=== PATIENT | female | born 1955 | race Caucasian/White ===

== ENCOUNTER → 2016-09-14 | Outpatient (CLI) | payer OTHER ==
[~2016-09-14] MED LIST: ASPCH81 NG; ASPI-390 PO; ATOR-24 PO; CALC-51 PO; CHOL100010 PO; CMD5 PO; CRF1 PO; CRG625 PO; CYAN10005 PO; DIGO0.052 PO; DIME50TA2; ESCI10TA17 PO; FLUT0.15 NAE; FLV1 NG; Fibersource 1.2 Cal NG; HYDC25 PO; HYDR12.55 PO; HYDR25TA5 PO; LCTL45 PO; LSN5 PO; MGNO400 PO; MULTLIQ PO; MULTTAB61; NICO21DI4 TD; NUTRMIS PO; OMEP20TA PO; OMEP40CA PO; POTTAB2 PO; QSTP PO; SUCR1TAB29 PO; THM100 PO; VNCS250 PO; XFX550 PO
[2016-09-14 17:08] LABS: LYME DISEASE AB IGG NEG (NEG); LYME DISEASE AB IGM NEG (NEG)
[2016-09-15 02:48] LABS: RAPID PLASMA REAGIN NONREACTIVE (NONREACT)
[2016-09-19 02:41] LABS: VITAMIN B1 WHOLE BLD** 5042X 86 nmol/L (78-185)
== END | disposition home or self-care (01) ==
LOC: EDBD → C.LABBC 09:08
PROVIDERS: ATTEND Family Medicine
DX: R41.3 Other amnesia (principal); E53.8 Deficiency of other specified B group vitamins; Z78.9 Other specified health status; Z11.59 Encounter for screening for other viral diseases

== ENCOUNTER 2016-10-09 11:51 | Emergency (ER) | payer OTHER ==
[~2016-10-09] VITALS: Ht 157.5 cm; Wt 70.9 kg
[~2016-10-09 11:51] MED LIST changes: -ASPCH81 NG; -ASPI-390 PO; -CMD5 PO; -CRG625 PO; -DIGO0.052 PO; -DIME50TA2; -FLV1 NG; -Fibersource 1.2 Cal NG; -HYDR12.55 PO; -HYDR25TA5 PO; -LCTL45 PO; -LSN5 PO; -MGNO400 PO; -MULTLIQ PO; -MULTTAB61; -NICO21DI4 TD; -NUTRMIS PO; -OMEP40CA PO; -POTTAB2 PO; -QSTP PO; -SUCR1TAB29 PO; -THM100 PO; -VNCS250 PO; -XFX550 PO
[2016-10-09 11:54] VITALS: TEMP 36.5; Ht 157.5 cm; Wt 70.9 kg
--- NOTE | 2016-10-09 12:25 | EMERGENCY ROOM VISIT NOTE ---
History Report prepared by Maurizioiberic: Reina Velazquez Under the Supervision of: Dr. Jesus Monroy M.D. First contact with patient: 12:15 Chief Complaint: DIZZY Stated Complaint: DIZZINESS Nursing Triage Summary: pt was referred by Dr. hubbard pt states she had a MRI 2 weeks ago and found "something..Im not really sure.. worse case scenario, I could have a stroke or a brain bleed." patient states she has not been about to see a neurologist. pt c/o dizzyiness with movement and trouble balancing. pt states she feel 3 times on . denies hitting her head. patient denies pain or discomfort. History of Present Illness The patient is a 60 year old female who presents to the Emergency Room with complaints of persistent dizziness for the past 6 to 8 months. She is accompanied by her . She reports when she gets up from being seated, she feels very off balance. She feels extremely "wobbly" when she walks and has to walk very slowly. She notes she fell "3 times" in one day this past week. The patient also complains of a "tingly" feeling in her head that she has been experiencing for the past "several weeks". She saw her PCP, Dr. Kirstin Jr. a few weeks ago and had an MRI approximately 2 weeks ago. She states "they saw something on it, but I cannot see a Neurologist for 4 months, so I came here". The patient denies any abdominal pain, vomiting, diarrhea or urinary symptoms. 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 Please see Additional Medical History Sheet. Past Medical & Surgical Medical Problems: (1) GERD (gastroesophageal reflux disease) (2) Hyperlipidemia Family History Cancer Hypertension Social History Smoking Status: Current Every Day Smoker Alcohol Use: occasionally Drug Use: none Marital Status: Housing Status: lives with family Occupation Status: employed Current/Historical Medications Scheduled Atorvastatin (Lipitor), 40 MG PO QAM Cholecalciferol (Vitamin D), 1 TAB PO QAM Cyanocobalamin (Vitamin B-12), 1,000 MCG PO QAM Escitalopram (Lexapro), 1 TAB PO BID Hydrochlorothiazide (Hydrochlorothiazide), 1 TAB PO DAILY Omeprazole (Omeprazole), 1 TAB PO BID Sucralfate (Carafate), 1 TAB PO QID Scheduled PRN Fluticasone Propionate (Nasal) (Flonase Allergy Relief), 2 SPRAY [place]RI[place] DAILY PRN for Nasal Congestion Miscellaneous Medications Dimenhydrinate (Motion Sickness) Allergies Coded Allergies: No Known Allergies (Verified , 10/06/16) Physical Exam Vital Signs Date Time Temp Pulse Resp B/P Pulse Ox O2 Delivery O2 Flow Rate FiO2 10/09/16 14:53 97 18 144/92 98 10/09/16 12:46 113 16 135/79 116 136/113 122 149/96 10/09/16 12:45 116 16 135/79 10/09/16 11:54 36.5 125 18 158/94 99 Room Air Physical Exam GENERAL: Patient awake, alert, oriented x 3. Patient follows commands. Patient does not appear toxic. Patient is adequately hydrated and well- nourished. SKIN: No erythema, pallor, cyanosis or rash HEENT: Normal head, pupils equal, reactive to light and accommodation. Ears normal. Oral cavity and posterior pharynx appear normal. Neck: Without adenopathy, no neck vein distention. LUNGS: Clear to auscultation. No wheezes, no rales, no rhonchi. HEART: No murmurs. No gallops. No rubs ABDOMEN: No masses, no rebound, no hepatomegaly or splenomegaly. EXTREMITIES: No signs of trauma. No pedal or pretibial edema. No calf or thigh tenderness. NEUROLOGIC: Cranial nerves II-XII within normal limits. No gross motor sensory function deficits. Medical Decision & Procedures Laboratory Results 10/09/16 12:30 10/09/16 12:30 Test 10/09/16 12:30 Red Blood Count 3.86 M/uL (4.2-5.4) Mean Corpuscular Volume 90.2 fL (80-100) Mean Corpuscular Hemoglobin 31.3 pg (25-34) Mean Corpuscular Hemoglobin Concent 34.8 g/dl (32-36) RDW Standard Deviation 43.9 fL (36.4-46.3) RDW Coefficient of Variation 13.4 % (11.5-14.5) Mean Platelet Volume 9.1 fL (7.4-10.4) Anion Gap 12.0 mmol/L (3-11) Est Creatinine Clear Calc Drug Dose 58.5 ml/min Estimated GFR () 77.3 Estimated GFR (Non- 66.7 BUN/Creatinine Ratio 14.2 (10-20) Calcium Level 9.1 mg/dl (8.5-10.1) Laboratory results as stated above per my review. ECG Indication: weakness (dizziness) Rate (beats per minute): 118 Rhythm: sinus tachycardia Findings: no acute ischemic change, no ectopy ED Course 1217: Past medical records reviewed. The patient was evaluated in room B3. A complete history and physical examination was performed. 1440: I reevaluated the patient. She is feeling well and resting comfortably. I discussed her results and discharge instructions and she verbalized complete understanding and agreement. Medical Decision The differential diagnoses considered include: TIA/CVA and anxiety. 60-year-old female with shakiness, wobbliness and dizziness intermittently for the past 6 months. The patient has already had an MRI performed at an outside institution. I have no access to that study. Additional lab work was performed here. Please see above. The patient is slightly hypokalemic. I do not believe that explains her symptoms. Here in the ED she was asymptomatic. The patient will be encouraged to follow back with her family physician to discuss the MRI results. At some point she may require neurology follow-up. Impression Primary Impression: Dizziness Additional Impression: Hypokalemia Scribe Attestation The scribe's documentation has been prepared under my direction and personally reviewed by me in its entirety. I confirm that the note above accurately reflects all work, treatment, procedures, and medical decision making performed by me. Departure Information Dispostion Home / Self-Care Referrals Zachary Hubbard, [facility] (PCP) Patient Instructions ED Potassium Deficiency, My [facility] Additional Instructions Follow-up with Dr. Hubbard within the next 2 weeks. Increase potassium in your diet. Problem Qualifiers
[2016-10-09] MEDS ORDERED: SUCR1TAB29 PO (12:43)
[2016-10-09] MEDS ORDERED: HYDR12.55 PO (12:43)
[2016-10-09] MEDS ORDERED: DIME50TA2 (12:43)
[2016-10-09 12:45] LABS: HEMATOCRIT 34.8 % (37-47); MEAN CELL VOLUME 90.2 fL (80-100); MEAN CORPUSCULAR HEMOGLOBIN 31.3 pg (25-34); MEAN CORPUSCULAR HGB CONC 34.8 g/dl (32-36); MEAN PLATELET VOLUME 9.1 fL (7.4-10.4); PLATELET COUNT 319 K/uL (130-400); RED BLOOD COUNT 3.86 M/uL (4.2-5.4); WHITE BLOOD COUNT 10.32 K/uL (4.8-10.8)
[2016-10-09 13:04] LABS: BUN/CREATININE RATIO 14.2 (10-20); CALCIUM 9.1 mg/dl (8.5-10.1); CREATININE 0.92 mg/dl (0.60-1.20); POTASSIUM 3.4 mmol/L (3.5-5.1)
[2016-10-09 14:53] VITALS: BP 144/92; PULSE 97; O2SAT 98
[2017-03-31] MEDS ORDERED: HYDR25TA5 PO (13:39)
[2017-04-02] MEDS ORDERED: QSTP PO (10:18)
[2017-04-02] MEDS ORDERED: VNCS250 PO (10:18)
[2017-04-02] MEDS ORDERED: CMD5 PO (10:18)
[2017-05-23] MEDS ORDERED: MULTTAB61 (07:07)
[2017-05-23] MEDS ORDERED: DIGO0.052 PO (07:07)
== END 2016-10-09 14:54 | disposition home or self-care (01) ==
LOC: EDBD → C.EDB 11:53
DX: R42 Dizziness and giddiness (principal); E87.6 Hypokalemia; K21.9 Gastro-esophageal reflux disease without esophagitis; E78.5 Hyperlipidemia, unspecified; F17.210 Nicotine dependence, cigarettes, uncomplicated; Z79.899 Other long term (current) drug therapy

== ENCOUNTER → 2017-01-05 | Day surgery (SDC) | payer OTHER ==
[2017-01-05] VITALS (11 sets, daily range): BP systolic 99–129; BP diastolic 67–90; PULSE 95–107; TEMP 36.3–37; O2SAT 93–98; Ht 160 cm; Wt 65.0 kg
[~2017-01-05] VITALS: Ht 160 cm; Wt 65.0 kg
[~2017-01-05] MED LIST changes: +ACETAMINOPHEN 500 MG TAB PO PRN; +ASPCH81 NG; -CALC-51 PO; +CMD5 PO; -CRF1 PO; +CRG625 PO; +DIGO0.052 PO; +DIME50TA2; +FLV1 NG; +Fibersource 1.2 Cal NG; -HYDC25 PO; +HYDR12.55 PO; +HYDR25TA5 PO; +LCTL45 PO; +LSN5 PO; +MGNO400 PO; +MULTLIQ PO; +MULTTAB61; +NICO21DI4 TD; +NUTRMIS PO; +POTTAB2 PO; +QSTP PO; +SUCR1TAB29 PO; +THM100 PO; +VNCS250 PO; +XFX550 PO
--- NOTE | 2017-01-05 10:24 | Discharge Instructions ---
Discharge Instructions Procedure Procedure Date: January 05, 2017. Reason for visit: Demyelinating Disorder, Abnormal Mri. Discharge Discharge Date: January 05, 2017. Discharge Diagnosis: same Instructions Activity Recommendations: No limitations Return to School/Work: no limitations Recommended Home Diet: Resume Previous Diet Provider Instructions: ACTIVITY RECOMMENDATIONS: * Rest today. * Resume regular activity in one day. MEDICATIONS: * May take Tylenol or Ibuprofen as needed for pain. DIET: * Resume previous diet. SPECIAL CARE INSTRUCTIONS: Call your doctor if: * Temperature above 101 degrees F. * Pain not relieved by pain medicine ordered. * Increased drainage or redness from incision. * Notify your doctor with any questions or concerns. Call your doctor or go to the nearest Emergency Department if you experience: * Increased chest pain or shortness of breath. FOLLOW UP VISIT: Follow-up with Referring Physician as scheduled. Allergies Coded Allergies: No Known Allergies (Verified , 01/05/17) Jose Bonner Recommendations: Call your doctor if: * Temperature above 101 degrees * Pain not relieved by pain medicine ordered * There is increased drainage or redness from any incision * You have any unanswered questions or concerns. Your Doctors Instructions noted above were prepared by provider Obi Parada. Patient Signature Section: Patient Instructions Signature Page Savanna Mercado Patient (or Guardian) Signature/Date: I have read and understand the instructions given to me by my caregivers. Caregiver/RN/Doctor Signature/Date: The above-named patient and/or guardian has received patient instructions on this date. + Original Patient Signature Page (only) stays with chart. Please make copy for patient.
--- NOTE | 2017-01-05 10:27 | DIAGNOSTIC IMAGING REPORT ---
FLUOROSCOPICALLY GUIDED LUMBAR PUNCTURE CLINICAL HISTORY: weakness loss of balance FLUOROSCOPY TIME: 0.7 minutes. A single image submitted. PROCEDURE: The procedure, risks and benefits were discussed with the patient including the risk of spinal headache, bleeding and infection. The patient agreed to the procedure and informed written consent was obtained. The procedure was performed by Dr. Parada following a timeout. Initial attempt at the L5-S1 level failed. Therefore, the left L2-L3 interlaminar space was targeted. Skin overlying the space was prepped and draped in the usual sterile fashion and local anesthesia was achieved with 1% lidocaine. Under intermittent fluoroscopic guidance, a 20-gauge x 3 1/2 in. Sprotte needle was inserted into the thecal sac. A total of 10 cc of clear, colorless cerebral spinal fluid was obtained and spread amongst 4 vials. The patient tolerated the procedure well. There were no immediate complications. The specimens were sent to the laboratory at the request of the referring physician. IMPRESSION: Successful fluoroscopic guided lumbar puncture with removal of 10 cc of clear, colorless cerebral spinal fluid. No immediate complications. Opening pressure was elevated at 24 cm of age H20 Electronically signed by: Obi Parada M.D. 01/05/2017 10:26 AM Dictated Date/Time: 01/05/2017 10:25 AM
[2017-01-05 10:48] LABS: CSF TOTAL PROTEIN 48.2 mg/dl (15.0-45.0)
[2017-01-05 11:23] LABS: CSF APPEARANCE CLEAR; CSF COLOR COLORLESS; CSF XANTHOCHROMIC XANTHOCHROMIC
[2017-01-09 22:28] LABS: ANTI-CENTROMERE AB <1.0 NEG AI (<1.0 NEG); ANTI-SS-A <1.0 NEG AI (<1.0 NEG); ANTI-SS-B <1.0 NEG AI (<1.0 NEG); DNA ds CRITHIDIA NEGATIVE (NEGATIVE); GLIADIN DEAMIDATED IgA AB 3 UNITS (<20); GLIADIN DEAMIDATED IgG AB 3 UNITS (<20); MYELOPEROXIDASE AB <1.0 AI (<1.0); RETICULIN IgA AB Negative (Negative); Sm Antibody <1.0 NEG AI (<1.0 NEG)
[2017-01-11 09:14] LABS: ALBUMIN 3.8 g/dL (3.2-4.6); IGG CSF 3.1 mg/dL (0.8-7.7); IGG SERUM 971 mg/dL (694-1618); LYME DNA PCR CSF OR SYNOVIAL Not detected (Not Detected); LYME DNA SOURCE CSF; LYME IGG CSF NO BANDS DETECTED; LYME IGM CSF NO BANDS DETECTED; MYELIN BASIC PROTEIN 663 <2.0 mcg/L (0.0-4.0)
== END | disposition home or self-care (01) ==
LOC: EDBD → C.ACU 08:21
PROVIDERS: ATTEND Psychiatry & Neurology Neurology
DX: G37.9 Demyelinating disease of central nervous system, unspecified (principal); R94.02 Abnormal brain scan

== ENCOUNTER 2017-01-26 11:31 | Inpatient (IN) | payer OTHER ==
[~2017-01-26] VITALS: Ht 160 cm; Wt 77.1 kg
[~2017-01-26 11:31] MED LIST changes: -ACETAMINOPHEN 500 MG TAB PO PRN; -ASPCH81 NG; -CMD5 PO; -CRG625 PO; -DIGO0.052 PO; -FLV1 NG; -Fibersource 1.2 Cal NG; -HYDR25TA5 PO; -LCTL45 PO; -LSN5 PO; -MGNO400 PO; -MULTLIQ PO; -MULTTAB61; -NICO21DI4 TD; -NUTRMIS PO; -POTTAB2 PO; -QSTP PO; -THM100 PO; -VNCS250 PO; -XFX550 PO
[2017-01-26] MEDS ORDERED: SODIUM CHLORIDE 0.9% 1000ML 1,000 ML IV STA (12:23)
[2017-01-26] MEDS ORDERED: RANITIDINE HCL 150 MG TAB PO STA (12:23)
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
--- NOTE | 2017-01-26 12:48 | DIAGNOSTIC IMAGING REPORT ---
SINGLE VIEW CHEST CLINICAL HISTORY: Strokelike symptoms. FINDINGS: An AP, portable, upright chest radiograph is compared to study dated 03/05/2010 and correlated with chest CT dated 03/07/2010. The examination is degraded by portable technique and patient rotation. The heart is enlarged and there is atherosclerotic calcification of the thoracic aorta. The pulmonary vasculature is noncongested. Mild emphysema is noted and there is chronic interstitial thickening. No airspace consolidation, large pleural effusion, or pneumothorax is seen. The skeletal structures are osteopenic. The bony thorax is grossly intact. IMPRESSION: Cardiomegaly and mild emphysema. There is no acute cardiopulmonary abnormality. Electronically signed by: Drew Lazo M.D. 01/26/2017 12:47 PM Dictated Date/Time: 01/26/2017 12:45 PM
[2017-01-26 12:51] LABS: BASO % 0.3 %; BASO ABS # 0.01 K/uL (0-0.2); COMPLETE YES; EOS % 0.3 %; HEMATOCRIT 35.3 % (37-47); LYMPH % 15.9 %; LYMPH ABS # 0.58 K/uL (1.2-3.4); MEAN CELL VOLUME 89.8 fL (80-100); MEAN CORPUSCULAR HGB CONC 31.2 g/dl (32-36); MEAN PLATELET VOLUME 9.7 fL (7.4-10.4); MONO % 8.2 %; NEUT % 75.3 %; PLATELET COUNT 266 K/uL (130-400); RED BLOOD COUNT 3.93 M/uL (4.2-5.4); WHITE BLOOD COUNT 3.64 K/uL (4.8-10.8)
[2017-01-26 13:07] LABS: BUN/CREATININE RATIO 18.3 (10-20); CREATININE 0.76 mg/dl (0.60-1.20); MAGNESIUM 1.6 mg/dl (1.8-2.4); POTASSIUM 3.2 mmol/L (3.5-5.1)
[2017-01-26 13:12] LABS: CALCIUM 8.7 mg/dl (8.5-10.1)
[2017-01-26 13:13] LABS: INR 1.2 (0.9-1.1); PARTIAL THROMBOPLASTIN RATIO 1.1; PROTHROMBIN TIME (PATIENT) 12.7 SECONDS (9.0-12.0)
[2017-01-26] MEDS ORDERED: MAGNESIUM SULFATE 1GM / D5W 1 GM BAG IV STA (13:26)
[2017-01-26 13:27] LABS: THYROID STIMULATING HORMONE 0.918 uIu/ml (0.300-4.500)
--- NOTE | 2017-01-26 13:30 | DIAGNOSTIC IMAGING REPORT ---
CT OF THE HEAD WITHOUT CONTRAST CLINICAL HISTORY: Stroke. COMPARISON STUDY: Head CT March 05, 2010 and MRI of the brain September 12, 2016. CT DOSE: 537.48 mGy.cm TECHNIQUE: Helical axial images of the head were obtained without IV contrast. Automated exposure control was utilized for the study. FINDINGS: No acute intracranial hemorrhage, midline shift or mass effect is present. Mild ventricular dilatation is likely due to central atrophy. The basilar cisterns are patent. There are no extra-axial collections. Extensive white matter hypodensities, most pronounced within the parieto-occipital regions are noted. These have progressed since CT of March 15, 2010 but are similar to MRI of September 12, 2016. There are no findings to suggest acute dural sinus thrombosis or acute territorial infarct. There are no significant calvarial abnormalities. Visualized portions of the sinuses and mastoid air cells are clear. IMPRESSION: 1. No acute intracranial findings. 2. Extensive white matter hypodensity. While nonspecific, small vessel disease is favored. Electronically signed by: Adan Posada M.D. 01/26/2017 1:10 PM Dictated Date/Time: 01/26/2017 1:06 PM
[2017-01-26] MEDS ORDERED: NITROGLYCERIN OINT 2% 1GM PACKET EXT STA (14:03)
[2017-01-26] MEDS ORDERED: ASPIRIN 81 MG CHEW PO STA (14:03)
[2017-01-26] MEDS ORDERED: METOPROLOL TARTRATE 1 MG/ML VIAL IV STA (14:03)
[2017-01-26] MEDS: SODIUM CHLORIDE 0.9% 1000ML 1,000 ML IV SCH (14:24)
[2017-01-26] MEDS ORDERED: ALUMINUM/MAGNESIUM/SIMETH (MAALOX MAX) 30 ML UDC PO PRN (14:30)
[2017-01-26] MEDS ORDERED: ONDANSETRON INJ 2 MG/ML 2 ML VIAL IV PRN (14:30)
--- NOTE | 2017-01-26 14:44 | History and Physical ---
History & Physical Date & Time of Service: Jan 26, 2017 at 14:31 Chief Complaint: Eye Assessment Primary Care Physician: Zachary Fulton D.O.Int.Med. History of Present Illness Source: patient The patient is a 61 yo female with hx of HTN, GERD, anxiety/depression, dyslipidemia who presents to the Emergency Room with complaints of progressively worsening weakness and fatigue and worsening memory. Pt is a poor historian and was not able to be contacted at time of interview. Pt reports these symptoms have worsening over past few weeks. Pt reports she doesnt recall last time she ate, stating it may have been days ago. Does not recall her medical history and reports a history of alcoholism but hasn't had a drink in weeks, but reports only drinking "1-2 vodkas once or twice a week." She states that due to her symptoms, she has followed with Neurology and additionally had a brain MRI in August 2016. The patient denies any recent new medications or history of stroke. She denies any fever, vomiting, diarrhea, or urinary symptoms. Family History Cancer Hypertension Social History Smoking Status: Former Smoker (reports msoking 1ppd for 20yrs but quit 10 yrs ago) Smokeless Tobacco Use: No Alcohol Use: occasionally Drug Use: none Marital Status: Occupational Status: employed Immunizations History of Influenza Vaccine: Yes Influenza Vaccine Date: Jun 05, 2009 History of Tetanus Vaccine?: Yes History of Pneumococcal: Yes Pneumococcal Date: Mar 05, 2009 History of Hepatitis B Vaccine: No Multi-Drug Resistant Organisms History of MDRO: No Allergies Coded Allergies: No Known Allergies (Verified , 01/05/17) Home Medications Scheduled Atorvastatin (Lipitor), 40 MG PO QAM Escitalopram (Lexapro), 10 MG PO DAILY Omeprazole (Omeprazole), 20 MG PO BID Sucralfate (Carafate), 1 GM PO QID Review of Systems Constitutional: + weakness, + fatigue, No fever, No chills, No sweats Eyes: No worsening of vision, No eye pain, No redness, No discharge ENT: No hearing loss, No unusual epistaxis, No nasal symptoms, No sore throat Respiratory: No cough, No sputum, No wheezing, No shortness of breath, No dyspnea on exertion Cardiovascular: + edema, No chest pain, No orthopnea, No PND Abdomen: No pain, No nausea, No vomiting, No diarrhea Musculoskeletal: No joint pain, No muscle pain, No swelling, No calf pain Genitourinary - Female: No urinary frequency, No urinary urgency, No urinary incontinence Neurologic: No memory loss, No paralysis, No weakness, No numbness/tingling Psychiatric: No depression symptoms, No anhedonism, No anxiety, No insomnia Endocrine: No fatigue, No excessive thirst Integumentary: No rash, No itch Physical Exam Vital Signs Date Time Temp Pulse Resp B/P (MAP) Pulse Ox O2 Delivery O2 Flow Rate FiO2 01/26/17 14:11 108 146/93 01/26/17 14:09 111 19 146/93 92 Room Air 01/26/17 13:30 109 19 149/101 96 01/26/17 12:45 96 Room Air 01/26/17 12:20 102 01/26/17 11:39 36.4 112 20 116/68 97 Room Air General Appearance: WD/WN, no apparent distress Eyes: normal inspection, PERRL, EOMI Neck: supple, no adenopathy, thyroid normal Respiratory/Chest: chest non-tender, lungs clear, normal breath sounds Cardiovascular: no gallop, no JVD, no murmur, + tachycardia Abdomen/GI: normal bowel sounds, non tender, soft, no organomegaly Back: normal inspection, no CVA tenderness, no muscle spasm, normal range of motion Extremities/Musculoskelatal: normal inspection, no calf tenderness, normal capillary refill, + pedal edema Neurologic/Psych: no motor/sensory deficits, alert, normal mood/affect, + disoriented Skin: normal color, warm/dry, no rash Diagnostics Laboratory Results Results Past 24 Hours Test 01/26/17 12:35 01/26/17 12:50 01/26/17 14:30 Range/Units White Blood Count 3.64 4.8-10.8 K/uL Red Blood Count 3.93 4.2-5.4 M/uL Hemoglobin 11.0 12.0-16.0 g/dL Hematocrit 35.3 37-47 % Mean Corpuscular Volume 89.8 80-100 fL Mean Corpuscular Hemoglobin 28.0 25-34 pg Mean Corpuscular Hemoglobin Concent 31.2 32-36 g/dl Platelet Count 266 130-400 K/uL Mean Platelet Volume 9.7 7.4-10.4 fL Neutrophils (%) (Auto) 75.3 % Lymphocytes (%) (Auto) 15.9 % Monocytes (%) (Auto) 8.2 % Eosinophils (%) (Auto) 0.3 % Basophils (%) (Auto) 0.3 % Neutrophils # (Auto) 2.74 1.4-6.5 K/uL Lymphocytes # (Auto) 0.58 1.2-3.4 K/uL Monocytes # (Auto) 0.30 0.11-0.59 K/uL Eosinophils # (Auto) 0.01 0-0.5 K/uL Basophils # (Auto) 0.01 0-0.2 K/uL RDW Standard Deviation 59.1 36.4-46.3 fL RDW Coefficient of Variation 18.0 11.5-14.5 % Immature Granulocyte % (Auto) 0.0 % Immature Granulocyte # (Auto) 0.00 0.00-0.02 K/uL Prothrombin Time 12.7 9.0-12.0 SECONDS Prothromb Time International Ratio 1.2 0.9-1.1 Activated Partial Thromboplast Time 27.8 21.0-31.0 SECONDS Partial Thromboplastin Ratio 1.1 Sodium Level 139 136-145 mmol/L Potassium Level 3.2 3.5-5.1 mmol/L Chloride Level 106 98-107 mmol/L Carbon Dioxide Level 21 21-32 mmol/L Anion Gap 12.0 3-11 mmol/L Blood Urea Nitrogen 14 7-18 mg/dl Creatinine 0.76 0.60-1.20 mg/dl Est Creatinine Clear Calc Drug Dose 72.4 ml/min Estimated GFR () 96.8 Estimated GFR (Non- 83.5 BUN/Creatinine Ratio 18.3 10-20 Random Glucose 107 70-99 mg/dl Calcium Level 8.7 8.5-10.1 mg/dl Magnesium Level 1.6 1.8-2.4 mg/dl Total Bilirubin 0.4 0.2-1 mg/dl Direct Bilirubin 0.1 0-0.2 mg/dl Aspartate Amino Transf (AST/SGOT) 31 15-37 U/L Alanine Aminotransferase (ALT/SGPT) 25 12-78 U/L Alkaline Phosphatase 102 45-117 U/L Total Creatine Kinase 178 26-192 U/L Creatine Kinase MB 7.1 0.5-3.6 ng/ml Creatine Kinase MB Ratio 4.0 0-3.0 Troponin I 0.060 0-0.045 ng/ml Total Protein 7.0 6.4-8.2 gm/dl Albumin 3.5 3.4-5.0 gm/dl Thyroid Stimulating Hormone (TSH) 0.918 0.300-4.500 uIu/ml Ammonia < 10.0 11-32 umol/L Ethyl Alcohol mg/dL < 3.0 0-3 mg/dl Impression Assessment and Plan Pt is a 61 yo female with worsening weakness/dizziness x few weeks NSTEMI - Pt reports no chest pain, will start on heparin drip, nitro, ASA, statin at this time. Will get stress ECHO. No cardiac hx per pt. Repeat EKG in AM and obtain serial trops as first trop mildly elev with t wave inversion in lateral leads. Weakness/dizziness - Likely multifactorial from alcoholism/poor nutrition/ dehydration. Seen by neurology in the past and had MRI brain in aug. No focal deficits on exam. Will also work up anemia and obtain UDS as pt sluggish on exam. Will likely need placement as poor care at home. PT/OT consulted. Dyslipidemia will cont statin Depression/anxiety - cont lexapro GERD - cont omeprazole and carafate DVT ppx with heparin Pt is FULL CODE VTE Prophylaxis VTE Risk Assessment Done? Y/N: Yes Risk Level: Moderate
[2017-01-26] MEDS ORDERED: NITROGLYCERIN 0.4 MG SL PER TAB CHARGE SL PRN (15:00)
[2017-01-26 15:35] VITALS: O2SAT 97; Ht 160 cm; Wt 77.1 kg
[2017-01-26 15:41] LABS: CHOLESTEROL/HDL RATIO 2.2
[2017-01-26] MEDS ORDERED: HEPARIN SOD 5000 UNIT/0.5 ML CARP ONE (15:54)
[2017-01-26] MEDS ORDERED: HEPARIN 25000 UNIT/500 ML D5W ONE (15:55)
[2017-01-26] MEDS ORDERED: HEPARIN IV BOLUS 5,000 UNIT in SYRINGE 0 ML IV ONE (16:30)
[2017-01-26 16:45] VITALS: BP 124/81; PULSE 95; TEMP 36.5; O2SAT 98
[2017-01-26] MEDS: SUCRALFATE 1 GM TAB PO SCH ×2 (17:00→19:44)
[2017-01-26 17:30] VITALS: BP 127/89; PULSE 98
[2017-01-26] MEDS ORDERED: CHLORDIAZEPOXIDE 25 MG CAP PO SCH (17:30)
[2017-01-26 17:43] LABS: URINE APPEARANCE TURBID (CLEAR); URINE COLOR DK YELLOW; URINE EPITHELIAL CELL AUTO >30 /lpf (0-5); URINE NITRITE NEG (NEG); URINE PH 5.5 (4.5-7.5); URINE SPECIFIC GRAVITY 1.042 (1.000-1.030); UROBILINOGEN NEG (NEG); ZZUR CULT IF INDIC CLEAN CATCH YES
[2017-01-26 17:47] LABS: MANUAL MICROSCOPIC REQUIRED? NO; REVIEW REQ? YES
[2017-01-26 17:57] LABS: URINE BILIRUBIN NEG (NEG)
[2017-01-26] MEDS: CHLORDIAZEPOXIDE 50MG 1ST DOSE PO SCH ×2 (18:10→23:53)
[2017-01-26] MEDS ORDERED: MULTI-VITAMIN INFUSION INJ 10 ML, THIAMINE HCL INJ 100 MG, FoLIC ACID INJ 1 MG in SODIU... IV ONE (18:15)
[2017-01-26 18:27] LABS: BENZODIAZEPINE, URINE NEG (NEG); COCAINE,URINE NEG (NEG); PHENCYCLIDINE, URINE NEG (NEG)
[2017-01-26 18:50] VITALS: BP 120/77; PULSE 98; TEMP 36.6; O2SAT 96
[2017-01-26] MEDS ORDERED: POTASSIUM CHLORIDE 20 MEQ TABCR PO STA (18:53)
[2017-01-26] MEDS: PANTOprazole SOD 40 MG TAB PO SCH (19:44)
[2017-01-26] MEDS: LEVOFLOXACIN / D5W 750 MG in PREMIXED IN D5W 150 ML IV SCH (19:45)
[2017-01-26 21:46] VITALS: BP 111/83; PULSE 98; TEMP 36.9; O2SAT 95
[2017-01-26] MEDS: LORAZEPAM 2 MG/ML 1 ML VIAL IV PRN ×2 (21:47→23:54)
[2017-01-26] MEDS ORDERED: HEPARIN SOD 5000 UNIT/0.5 ML CARP SQ SCH (22:00)
[2017-01-26 22:37] LABS: PARTIAL THROMBOPLASTIN RATIO 2.6
[2017-01-26] MEDS: HEPARIN 25,000 UNIT/500ML D5W 500 ML IV PRN (23:13)
[2017-01-27] VITALS (8 sets, daily range): BP systolic 103–156; BP diastolic 77–106; PULSE 80–110; TEMP 36.6–36.8; O2SAT 94–98
[2017-01-27] MEDS: LORAZEPAM 2 MG/ML 1 ML VIAL IV PRN ×9 (01:00→23:48)
[2017-01-27] MEDS: SODIUM CHLORIDE 0.9% 1000ML 1,000 ML IV SCH (05:27)
[2017-01-27] MEDS: CHLORDIAZEPOXIDE 50MG 1ST DOSE PO SCH ×3 (05:30→11:49)
[2017-01-27 06:15] LABS: ESTIMATED AVERAGE GLUCOSE 140 mg/dl; HA1C FLAG Normal (Normal)
[2017-01-27 06:39] LABS: BASO % 1.1 %; BASO ABS # 0.04 K/uL (0-0.2); COMPLETE YES; EOS % 2.2 %; HEMATOCRIT 32.1 % (37-47); IG% 0.3 %; LYMPH % 27.5 %; LYMPH ABS # 0.99 K/uL (1.2-3.4); MEAN CELL VOLUME 89.7 fL (80-100); MEAN CORPUSCULAR HEMOGLOBIN 27.7 pg (25-34); MEAN CORPUSCULAR HGB CONC 30.8 g/dl (32-36); MEAN PLATELET VOLUME 9.5 fL (7.4-10.4); MONO % 8.6 %; NEUT % 60.3 %; PLATELET COUNT 214 K/uL (130-400); RED BLOOD COUNT 3.58 M/uL (4.2-5.4)
[2017-01-27] MEDS: SUCRALFATE 1 GM TAB PO SCH ×4 (07:00→21:00)
[2017-01-27 07:31] LABS: PARTIAL THROMBOPLASTIN RATIO 4.7
[2017-01-27 07:37] LABS: BUN/CREATININE RATIO 12.6 (10-20); CALCIUM 7.5 mg/dl (8.5-10.1); CREATININE 0.66 mg/dl (0.60-1.20)
--- NOTE | 2017-01-27 07:38 | Hospitalist Progress Note ---
Hospitalist Progress Note Date of Service Jan 27, 2017. (Luli Singh PA-C) Subjective Pt evaluation today including: conversation w/ patient, physical exam, chart review, lab review, review of studies Pain: None Voiding: no voiding problems The patient was seen and examined this morning. Pt is unable to provide much history this morning as she is extremely sluggish. She does answer my questions appropriately but takes some repetition to get her to answer. She denies all ROS including any current pain, lightheadedness, dizziness, abd pain, nausea, vomiting, or shakiness. Additional Comments: 10 point ROS reviewed and otherwise negative. (Luli Singh PA-C) Objective Vital Signs Date Time Temp Pulse Resp B/P (MAP) Pulse Ox O2 Delivery O2 Flow Rate FiO2 01/27/17 05:00 36.8 81 22 113/77 (89) 94 Room Air 01/27/17 04:00 Room Air 01/27/17 00:01 36.6 81 16 103/82 (89) 98 Room Air 01/27/17 00:00 Room Air 01/26/17 21:46 36.9 98 20 111/83 (92) 95 01/26/17 20:00 Room Air 01/26/17 18:50 36.6 98 20 120/77 (91) 96 Room Air 01/26/17 16:45 36.5 95 20 124/81 (95) 98 Room Air 01/26/17 16:05 92 16 128/116 97 Room Air 01/26/17 15:38 91 17 113/64 97 Room Air 01/26/17 15:35 97 Room Air 01/26/17 15:08 94 16 128/87 98 Room Air 01/26/17 14:11 108 146/93 01/26/17 14:09 111 19 146/93 92 Room Air 01/26/17 13:30 109 19 149/101 96 01/26/17 12:45 96 Room Air 01/26/17 12:20 102 01/26/17 11:39 36.4 112 20 116/68 97 Room Air (Luli Singh PA-C) Physical Exam General Appearance: WD/WN, no apparent distress Eyes: PERRL, EOMI ENT: hearing grossly normal, pharynx normal Neck: supple, no JVD Respiratory/Chest: chest non-tender, lungs clear, no respiratory distress, no accessory muscle use Cardiovascular: no gallop, no murmur, + pertinent finding (+ tachycardia with HR in low 100s.) Abdomen: normal bowel sounds, non tender, soft Extremities: non-tender, + pedal edema (2+ pitting) Neurologic/Psychiatric: no motor/sensory deficits, alert, + pertinent finding ( oriented to place and year) Skin: normal color, warm/dry (Luli Singh, VENUS) Laboratory Results Last 24 Hours Test 01/26/17 12:35 01/26/17 12:50 01/26/17 14:50 01/26/17 22:03 White Blood Count 3.64 K/uL Red Blood Count 3.93 M/uL Hemoglobin 11.0 g/dL Hematocrit 35.3 % Mean Corpuscular Volume 89.8 fL Mean Corpuscular Hemoglobin 28.0 pg Mean Corpuscular Hemoglobin Concent 31.2 g/dl Platelet Count 266 K/uL Mean Platelet Volume 9.7 fL Neutrophils (%) (Auto) 75.3 % Lymphocytes (%) (Auto) 15.9 % Monocytes (%) (Auto) 8.2 % Eosinophils (%) (Auto) 0.3 % Basophils (%) (Auto) 0.3 % Neutrophils # (Auto) 2.74 K/uL Lymphocytes # (Auto) 0.58 K/uL Monocytes # (Auto) 0.30 K/uL Eosinophils # (Auto) 0.01 K/uL Basophils # (Auto) 0.01 K/uL RDW Standard Deviation 59.1 fL RDW Coefficient of Variation 18.0 % Immature Granulocyte % (Auto) 0.0 % Immature Granulocyte # (Auto) 0.00 K/uL Prothrombin Time 12.7 SECONDS Prothromb Time International Ratio 1.2 Activated Partial Thromboplast Time 27.8 SECONDS 67.8 SECONDS Partial Thromboplastin Ratio 1.1 2.6 Sodium Level 139 mmol/L Potassium Level 3.2 mmol/L Chloride Level 106 mmol/L Carbon Dioxide Level 21 mmol/L Anion Gap 12.0 mmol/L Blood Urea Nitrogen 14 mg/dl Creatinine 0.76 mg/dl Est Creatinine Clear Calc Drug Dose 72.4 ml/min Estimated GFR () 96.8 Estimated GFR (Non- 83.5 BUN/Creatinine Ratio 18.3 Random Glucose 107 mg/dl Estimated Average Glucose 140 mg/dl Hemoglobin A1c 6.5 % Calcium Level 8.7 mg/dl Magnesium Level 1.6 mg/dl Total Bilirubin 0.4 mg/dl Direct Bilirubin 0.1 mg/dl Aspartate Amino Transf (AST/SGOT) 31 U/L Alanine Aminotransferase (ALT/SGPT) 25 U/L Alkaline Phosphatase 102 U/L Total Creatine Kinase 178 U/L Creatine Kinase MB 7.1 ng/ml Creatine Kinase MB Ratio 4.0 Troponin I 0.060 ng/ml 0.062 ng/ml Total Protein 7.0 gm/dl Albumin 3.5 gm/dl Triglycerides Level 105 mg/dl Cholesterol Level 152 mg/dl HDL Cholesterol 69 mg/dl LDL Cholesterol, Calculated 62 mg/dl VLDL Cholesterol, Calculated 21 mg/dl Cholesterol/HDL Ratio 2.2 Thyroid Stimulating Hormone (TSH) 0.918 uIu/ml Hepatitis C Antibody Screen NEG Ammonia < 10.0 umol/L Ethyl Alcohol mg/dL < 3.0 mg/dl Vitamin B12 Level 518 pg/mL Folate 8.12 ng/mL Test 01/27/17 06:12 01/27/17 07:03 White Blood Count 3.60 K/uL Red Blood Count 3.58 M/uL Hemoglobin 9.9 g/dL Hematocrit 32.1 % Mean Corpuscular Volume 89.7 fL Mean Corpuscular Hemoglobin 27.7 pg Mean Corpuscular Hemoglobin Concent 30.8 g/dl Platelet Count 214 K/uL Mean Platelet Volume 9.5 fL Neutrophils (%) (Auto) 60.3 % Lymphocytes (%) (Auto) 27.5 % Monocytes (%) (Auto) 8.6 % Eosinophils (%) (Auto) 2.2 % Basophils (%) (Auto) 1.1 % Neutrophils # (Auto) 2.17 K/uL Lymphocytes # (Auto) 0.99 K/uL Monocytes # (Auto) 0.31 K/uL Eosinophils # (Auto) 0.08 K/uL Basophils # (Auto) 0.04 K/uL RDW Standard Deviation 59.7 fL RDW Coefficient of Variation 18.1 % Immature Granulocyte % (Auto) 0.3 % Immature Granulocyte # (Auto) 0.01 K/uL Luli Trinidad, VENUS) Assessment and Plan Pt is a 61 yo female with worsening weakness/dizziness x few weeks NSTEMI vs ST wave inversion in anterior-lateral leads secondary to electrolyte abnormalities - Pt reports no chest pain - Cont on heparin drip for now - Cardiology consulted and I spoke with them this morning, thank you for the recommendations. - Plans for the pt to have 2D echo vs stress test because she is currently detoxing, plan for outpt stress test if indicated. - nitro prn - daily ASA 81 mg and atorvastatin 40 mg daily at this time. Will get stress ECHO. No cardiac hx per pt. Repeat EKG in AM and obtain serial trops as first trop mildly elev with t wave inversion in lateral leads. - replace potassium IV today, total 40 meq Weakness/dizziness Withdrawal from etoh, currently detoxing - Likely multifactorial from alcoholism/poor nutrition/dehydration. - Librium 50 mg Q6H for withdrawal - pt has been unable to take any oral medications due to lethargy, possible that she will later today- Will continue IV ativan with CIWA scoring. - etoh was negative at time of admission however pt has told nursing she drinks a 5th of vodka daily this morning. Her was admitted to an inpatient etoh facility yesterday. - Cont banana bag daily and will decrease NSS @ 80mL/hr with peripheral edema - Seen by neurology in the past and had MRI brain in aug. No focal deficits on exam. - no asterixis - Will also work up anemia- B12 and folate are normal - PT/OT consulted. UTI? - UA appears dirty with trace esterase, +bacteruria, +WBC, culture in process - On levaquin day #2 - Insert miguel with incontinence Dyslipidemia - will cont statin Depression/anxiety - cont lexapro 10 mg daily GERD - cont omeprazole and Carafate DVT ppx with heparin gtt, teds, scds CODE STATUS: FULL CODE Disposition: would benefit from outpatient etoh counseling/therapy, likely to return home in 1-2 days. (Luli Singh, VENUS) GARRICK Physician Supervision Note: I interviewed and examined the patient. Discussed with Luli Singh PAC and agree with findings and plan as documented in the note. Any exceptions or clarifications are listed here: None This pt is sedated and restless, did receive additional ativan to help with withdrawal tachy and hypertensive, car is regular and rapid at times lungs are clear 61 F with alcohol withdrawal, ECG changes and elevated troponin NSTEMI heparin drip- Cardiology consult nitro prn ASA 81 mg and atorvastatin 40 mg daily pending ECHO. Hypokalemia replete Alcohol withdrawal Librium 50 mg Q6H, prn IV ativan with CIWA scoring. -MRI brain in aug. negative - PT/OT consulted. Urine culture pending, levaquin Depression/anxiety lexapro 10 mg daily GERD omeprazole and Carafate DVT ppx with heparin gtt, teds, scds CODE STATUS: FULL CODE Documented By: Alejandro West (Alejandro West M.D.)
[2017-01-27] MEDS ORDERED: POTASSIUM CHLR 20 MEQ / WTR 20 MEQ in PREMIXED WATER 100 ML IV STA (07:51)
[2017-01-27] MEDS ORDERED: METOPROLOL TARTRATE 1 MG/ML VIAL IV PRN (08:30)
[2017-01-27] MEDS: ASPIRIN 81 MG ECTAB PO SCH (08:50)
[2017-01-27] MEDS: ESCITALOPRAM OXALATE 10 MG TAB PO SCH (08:50)
[2017-01-27] MEDS: POTASSIUM CHLORIDE 20 MEQ TABCR PO SCH (08:50)
[2017-01-27] MEDS: ATORVASTATIN 40 MG TAB PO SCH (08:50)
[2017-01-27] MEDS: PANTOprazole SOD 40 MG TAB PO SCH ×3 (08:50→22:21)
[2017-01-27] MEDS: POTASSIUM CHLR 10MEQ / WTR IV SCH ×2 (08:57→10:12)
[2017-01-27] MEDS ORDERED: ACYCLOVIR 5% OINT 15 GM TUBE EXT SCH (09:00)
--- NOTE | 2017-01-27 10:07 | Cardiology Consultation ---
Cardiology Consultation Date of Consultation: Jan 27, 2017. Requesting Physician: Jane LOZANO Reason for Consultation: Elevated troponin History of Present Illness Mrs. Mercado is a 61 year old female with a medical history significant for alcoholism, tobacco use, GERD, hypertension and dyslipidemia. She presented to the emergency department yesterday after a friend reportedly noticed she seemed more confused and off balance. She was also intoxicated. The patient complained of feeling more off balanced for several months but had no other acute complaints. She denied chest pain. Upon admission her troponin was mildly elevated at 0.06, peaked at 0.062 and is now trending down at 0.053. Her electrocardiogram shows sinus rhythm with T wave inversion in the inferolateral leads. A chest x-ray shows cardiomegaly and mild emphysema. The patient was seen in her room and is being treated for alcohol withdrawal. When I saw her she was very drowsy. She was able to be aroused but does not answer any questions appropriately. Per her inpatient and outpatient records she has no history of cardiovascular disease. When seen by the hospitalist service this morning she denies any chest pain. She was tachycardic and hypertensive at that time which has improved with the use of IV Lopressor. A review of systems was unable to be obtained from the patient. Family History Cancer Hypertension Social History Smoking Status: Current Every Day Smoker History of Alcohol Use: Yes (VODKA DAILY ) Allergies Coded Allergies: No Known Allergies (Verified , 01/05/17) Medications Current Inpatient Medications Medications (Trade) Dose Ordered Sig/Debbie Route Start Time Stop Time Status Last Admin Dose Admin Sodium Chloride 1,000 ml @ 100 mls/hr Q10H IV 01/26/17 14:24 02/25/17 14:23 01/27/17 05:27 100 MLS/HR Acetaminophen (Tylenol Tab) 650 mg Q4H PRN PO 01/26/17 14:30 02/25/17 14:29 Al Hydrox/Mg Hydrox/Simethicone (Maalox Max Susp) 15 ml Q4H PRN PO 01/26/17 14:30 02/25/17 14:29 Ondansetron HCl (Zofran Inj) 4 mg Q6H PRN IV 01/26/17 14:30 02/25/17 14:29 Aspirin (Ecotrin Tab) 81 mg QAM PO 01/27/17 09:00 02/26/17 08:59 Atorvastatin Calcium (Lipitor Tab) 40 mg QAM PO 01/27/17 09:00 02/26/17 08:59 Escitalopram Oxalate (Lexapro Tab) 10 mg DAILY PO 01/27/17 09:00 02/26/17 08:59 Sucralfate (Carafate Tab) 1 gm ACHS PO 01/26/17 17:00 02/25/17 16:59 01/26/17 19:44 1 GM Pantoprazole Sodium (Protonix Tab) 40 mg BID PO 01/26/17 21:00 02/25/17 20:59 01/26/17 19:44 40 MG Nitroglycerin (Nitrostat Tab) 0.4 mg PRN PRN SL 01/26/17 15:00 02/25/17 14:59 Heparin Sodium/ Dextrose 500 ml @ 18 mls/hr Q24H PRN IV 01/26/17 16:30 02/25/17 16:29 01/26/17 23:13 22 MLS/HR Lorazepam (Ativan Inj) PRN Dosing -Active Protocol Q1H PRN IV 01/26/17 17:30 02/25/17 17:29 01/27/17 05:21 2 MG Chlordiazepoxide (Librium Cap) 50 mg Q6H PO 01/26/17 18:00 01/27/17 12:01 01/26/17 23:53 50 MG Chlordiazepoxide (Librium Cap) 50 mg Q8@0600,1400,2000 PO 01/27/17 20:00 01/28/17 14:01 Chlordiazepoxide (Librium Cap) 25 mg Q8H PO 01/28/17 22:00 01/29/17 14:01 Chlordiazepoxide (Librium Cap) 10 mg Q12H PO 01/30/17 00:00 01/30/17 12:01 Levofloxacin 750 mg/Prmx 150 ml @ 100 mls/hr Q24H IV 01/26/17 19:30 01/31/17 19:29 01/26/17 19:45 100 MLS/HR Potassium Chloride (Klor-Con Tab) 40 meq QAM PO 01/27/17 09:00 02/26/17 08:59 Potassium Chloride 10 meq/ Prmx 100 ml @ 100 mls/hr Q1H IV 01/27/17 09:00 01/27/17 10:59 01/27/17 08:57 100 MLS/HR Metoprolol Tartrate (Lopressor Iv) 5 mg Q1H PRN IV 01/27/17 08:30 02/26/17 08:29 UNV Multivitamins 10 ml/Folic Acid 1 mg/Thiamine HCl 100 mg/Sodium Chloride 1,011.2 ml @ 100 mls/ hr Q10H7M IV 01/27/17 08:30 02/26/17 08:29 UNV Potassium Chloride 20 meq/ Prmx 100 ml @ 50 mls/hr ONE IV 01/27/17 09:30 02/26/17 09:29 UNV Acyclovir (Zovirax 5% Oint) 1 appln DAILY EXT 01/27/17 09:00 02/06/17 08:59 UNV Physical Exam Vital Signs Past 12 Hours Date Time Temp Pulse Resp B/P (MAP) Pulse Ox O2 Delivery O2 Flow Rate FiO2 01/27/17 08:47 36.7 83 20 156/106 (123) 98 Room Air 01/27/17 08:05 Room Air 01/27/17 05:00 36.8 81 22 113/77 (89) 94 Room Air 01/27/17 04:00 Room Air 01/27/17 00:01 36.6 81 16 103/82 (89) 98 Room Air 01/27/17 00:00 Room Air 01/26/17 21:46 36.9 98 20 111/83 (92) 95 General: Patient in bed, drowsy but able to arouse. She is unable to answer questions. HEENT: Head normal. Eyes grossly normal. Sclera nonicteric. Neck: No appreciable JVD. No carotid bruit. Lungs: Clear to auscultation bilaterally without rales, rhonchi or wheezes. Cardiac: Regular rate and rhythm. Distant heart sounds. S1 and S2 with grade 2/ 6 holosystolic apical murmur. No gallop or rub. Abdomen: Soft and nondistended. Bowel sounds present. No obvious mass or organomegaly. Extremities: Trace pretibial edema bilaterally. No cyanosis our clubbing. Skin: No rash. Normal turgor. Neurologic: Disoriented. Data Laboratory Results: Last 24 Hours Test 01/26/17 12:35 01/26/17 12:50 01/26/17 14:50 01/26/17 22:03 White Blood Count 3.64 K/uL Red Blood Count 3.93 M/uL Hemoglobin 11.0 g/dL Hematocrit 35.3 % Mean Corpuscular Volume 89.8 fL Mean Corpuscular Hemoglobin 28.0 pg Mean Corpuscular Hemoglobin Concent 31.2 g/dl Platelet Count 266 K/uL Mean Platelet Volume 9.7 fL Neutrophils (%) (Auto) 75.3 % Lymphocytes (%) (Auto) 15.9 % Monocytes (%) (Auto) 8.2 % Eosinophils (%) (Auto) 0.3 % Basophils (%) (Auto) 0.3 % Neutrophils # (Auto) 2.74 K/uL Lymphocytes # (Auto) 0.58 K/uL Monocytes # (Auto) 0.30 K/uL Eosinophils # (Auto) 0.01 K/uL Basophils # (Auto) 0.01 K/uL RDW Standard Deviation 59.1 fL RDW Coefficient of Variation 18.0 % Immature Granulocyte % (Auto) 0.0 % Immature Granulocyte # (Auto) 0.00 K/uL Prothrombin Time 12.7 SECONDS Prothromb Time International Ratio 1.2 Activated Partial Thromboplast Time 27.8 SECONDS 67.8 SECONDS Partial Thromboplastin Ratio 1.1 2.6 Sodium Level 139 mmol/L Potassium Level 3.2 mmol/L Chloride Level 106 mmol/L Carbon Dioxide Level 21 mmol/L Anion Gap 12.0 mmol/L Blood Urea Nitrogen 14 mg/dl Creatinine 0.76 mg/dl Est Creatinine Clear Calc Drug Dose 72.4 ml/min Estimated GFR () 96.8 Estimated GFR (Non- 83.5 BUN/Creatinine Ratio 18.3 Random Glucose 107 mg/dl Estimated Average Glucose 140 mg/dl Hemoglobin A1c 6.5 % Calcium Level 8.7 mg/dl Magnesium Level 1.6 mg/dl Total Bilirubin 0.4 mg/dl Direct Bilirubin 0.1 mg/dl Aspartate Amino Transf (AST/SGOT) 31 U/L Alanine Aminotransferase (ALT/SGPT) 25 U/L Alkaline Phosphatase 102 U/L Total Creatine Kinase 178 U/L Creatine Kinase MB 7.1 ng/ml Creatine Kinase MB Ratio 4.0 Troponin I 0.060 ng/ml 0.062 ng/ml Total Protein 7.0 gm/dl Albumin 3.5 gm/dl Triglycerides Level 105 mg/dl Cholesterol Level 152 mg/dl HDL Cholesterol 69 mg/dl LDL Cholesterol, Calculated 62 mg/dl VLDL Cholesterol, Calculated 21 mg/dl Cholesterol/HDL Ratio 2.2 Thyroid Stimulating Hormone (TSH) 0.918 uIu/ml Hepatitis C Antibody Screen NEG Ammonia < 10.0 umol/L Ethyl Alcohol mg/dL < 3.0 mg/dl Vitamin B12 Level 518 pg/mL Folate 8.12 ng/mL Test 01/27/17 06:12 01/27/17 07:03 White Blood Count 3.60 K/uL Red Blood Count 3.58 M/uL Hemoglobin 9.9 g/dL Hematocrit 32.1 % Mean Corpuscular Volume 89.7 fL Mean Corpuscular Hemoglobin 27.7 pg Mean Corpuscular Hemoglobin Concent 30.8 g/dl Platelet Count 214 K/uL Mean Platelet Volume 9.5 fL Neutrophils (%) (Auto) 60.3 % Lymphocytes (%) (Auto) 27.5 % Monocytes (%) (Auto) 8.6 % Eosinophils (%) (Auto) 2.2 % Basophils (%) (Auto) 1.1 % Neutrophils # (Auto) 2.17 K/uL Lymphocytes # (Auto) 0.99 K/uL Monocytes # (Auto) 0.31 K/uL Eosinophils # (Auto) 0.08 K/uL Basophils # (Auto) 0.04 K/uL RDW Standard Deviation 59.7 fL RDW Coefficient of Variation 18.1 % Immature Granulocyte % (Auto) 0.3 % Immature Granulocyte # (Auto) 0.01 K/uL Sodium Level 143 mmol/L Potassium Level 3.0 mmol/L Chloride Level 112 mmol/L Carbon Dioxide Level 20 mmol/L Anion Gap 10.0 mmol/L Blood Urea Nitrogen 8 mg/dl Creatinine 0.66 mg/dl Est Creatinine Clear Calc Drug Dose 85.8 ml/min Estimated GFR () 109.0 Estimated GFR (Non- 94.0 BUN/Creatinine Ratio 12.6 Random Glucose 90 mg/dl Calcium Level 7.5 mg/dl Troponin I 0.053 ng/ml Activated Partial Thromboplast Time 122.1 SECONDS Partial Thromboplastin Ratio 4.7 Imaging: CXR with cardiomegaly and mild emphysema. EKG: Sinus rhythm at 79 bpm, T wave inversion in the inferolateral leads, possible left atrial enlargement, prolonged QT Preliminary results of her echocardiogram reviewed with Dr. Hdz demonstrates: borderline dilated LV. Global hypokinesis. Severely reduced left ventricular systolic function. Severe MR. Moderate TR. Biatrial dilation. Reduced RV function. Assessment & Plan Mrs. Mercado is a 61 year old female with a medical history significant for alcoholism, tobacco use, GERD, hypertension and dyslipidemia. She presented to the ER on 01/26/17 with confusion and gait instability. She is being treated for alcohol withdrawal. There was a mild elevation in her troponin (peak 0.062) and it is now trending down. Her ECG shows T wave abnormality in the inferolateral leads. A history was unable to obtained from the patient today but she denied chest pain upon admission. Per outpatient records she has no history of cardiovascular disease but she does have risk factors. Her elevated troponin is likely secondary to demand ischemia and likely does not represent an acute coronary syndrome. Preliminary results of her echocardiogram demonstrate severe LV dysfunction, global hypokinesis, LV dilatation and severe MR. In the future she will require an ischemic workup for her cardiomyopathy. However, there is no current indication for urgent cardiac catheterization. Given her medical comorbidities she may be a poor candidate for heart catheterization and a nuclear stress test could be performed. There is no current evidence of acute heart failure. Recommend guideline based therapy for her cardiomyopathy with beta anthony (metoprolol succinate or carvedilol) and SAVANNAH inhibitor. The patient was seen and examined by me in conjunction with . As with exam above I was unable to obtain any history from the patient myself. Physical exam revealed jugular venous pulsations up to the angle of the jaw with the head of the bed elevated approximately 20-30 degrees. Lung exam with no rales or wheezes. Heart exam with holosystolic murmur. No S3 or S4 heard. Extremities with bilateral lower leg edema. Electrocardiogram and labs reviewed by me. Echocardiogram reviewed by me. The echo report was performed by me. Her electrocardiogram reveals inferolateral T-wave inversion suggestive of ischemia. Troponin I mildly increased. Echocardiogram with significant lead reduced LV systolic function. It is global in nature. She also has significant mitral and tricuspid regurgitation. Evidence of elevated pulmonary artery and central venous pressures. Do not suspect an acute coronary process. Elevation in troponin I likely secondary to demand ischemia. She has elevation in both her heart rate and blood pressure secondary to her alcohol withdrawal. This is the presence of anemia. She also likely has significantly increased left ventricular end diastolic pressure which would decrease coronary artery perfusion during diastole. The global hypokinesis of the left ventricle could be related to alcohol abuse. It could also be of an undetermined etiology. Do not suspect it is secondary to ischemic disease. However, certainly cannot exclude ischemic heart disease. Ischemic heart disease can also cause global hypokinesis Although usually segmental wall motion abnormalities of the left ventricle are present with ischemic cardiomyopathy. Agree with above recommendations and plan. Therapy at this time would be getting her through her alcohol withdrawal. It would also be initiating appropriate medications for her cardiomyopathy. As above this would include beta-anthony therapy and afterload reduction therapy with an SAVANNAH inhibitor or angiotensin receptor anthony. Also, the patient has evidence of volume overload. Diuretic therapy for this would be indicated. However, at this time there is no evidence of hypoxemia. No evidence of pulmonary vascular congestion on chest x-ray or exam. The volume overload is in the form of peripheral edema. Would wait to diuresis the patient after she is through her alcohol withdrawal. Ultimately the patient will need a workup for myocardial ischemia. Would 1st start with a Lexiscan pharmacologic stress test. If there was evidence of significant myocardial ischemia would then need to consider performing a cardiac catheterization. The patient also has anemia. Would workup for this anemia. With her alcohol abuse she would be at risk for an iron deficiency anemia from GI bleeding. Would consider imaging of her liver to assess for the presence of cirrhosis. Thank you for asking us to see this patient in Cardiology consultation.
[2017-01-27] MEDS ORDERED: POTASSIUM CHLR 10 MEQ / WTR 10 MEQ in PREMIXED WATER 100 ML IV SCH (11:00)
[2017-01-27] MEDS: POTASSIUM CHLR 10 MEQ / WTR 10 MEQ in PREMIXED WATER 100 ML IV SCH ×2 (11:11→12:14)
[2017-01-27] MEDS: MULTI-VITAMIN INFUSION INJ 10 ML, FoLIC ACID INJ 1 MG, THIAMINE HCL INJ 100 MG in SODIU... IV SCH (11:12)
--- NOTE | 2017-01-27 11:21 | ECHOCARDIOGRAM REPORT ---
*NOTICE TO RECEIVING DEMOCRAT AGENCY This information is strictly Confidential and protected under [place] law. [place] law prohibits you from making any further disclosure of this information unless further disclosure is expressly permitted by the written consent of the person to whom it pertains or is authorized by law. A general authorization for the release of medical or other information is not sufficient for this purpose. Hospital accepts no responsibility if the information is made available to any other person, INCLUDING THE PATIENT. Interpretation Summary * Name: JOSE R INFANTE Study Date: 01/27/2017 09:10 AM BP: 156/106 mmHg * Patient Location: .2E\S\E204\S\1 HR: 83 * : 1955 (M/d/yyyy) Gender: Female Height: 63 in * Age: 61 yrs Ethnicity: [place] Weight: 169 lb * Ordering Physician: Luli Singh * Referring Physician: Self, Referred * Performed By: Yenny Owusu RDCS * * Reason For Study: CHEST PAIN * BSA: 1.8 m2 * Moderate - severe left ventricular systolic dysfunction. * Mild right ventricular systolic dysfunction. * Borderline left and mild right ventricular dilatation. * Moderate biatrial dilatation. * Severe mitral regurgitation. * Moderate - severe tricuspid regurgitation. * Moderate pulmonary hypertension. * Elevated central venous pressure. * Small pericardial effusion without tamponade. Procedure Details * A complete two-dimensional transthoracic echocardiogram was performed (2D, M-mode, Doppler and color flow Doppler). Left Ventricle * The left ventricle is borderline dilated. * There is normal left ventricular wall thickness. * Ejection Fraction = 25-30%. * Left ventricular systolic function is moderate to severely reduced. * There is moderate to severe global hypokinesis of the left ventricle. Right Ventricle * The right ventricle is moderately dilated. * The right ventricular systolic function is mildly reduced. Atria * The left atrium is moderately dilated. * The right atrium is moderately dilated. * No ASD detected; PFO is not assessed. Mitral Valve * The mitral valve is normal. * There is no mitral valve stenosis. * There is severe mitral regurgitation. Tricuspid Valve * The tricuspid valve is normal. * There is no tricuspid stenosis. * There is moderate to severe tricuspid regurgitation. * Right ventricular systolic pressure is elevated at 40-50mmHg. Aortic Valve * The aortic valve is trileaflet. * The aortic valve opens well. * Aortic stenosis is absent. * No aortic regurgitation is present. Pulmonic Valve * The pulmonic valve is not well visualized. * The pulmonary valve is inadequately visualized, but the Doppler data is adequate for interpretation. * There is no significant pulmonary regurgitation. Great Vessels * The aortic root is normal size. * Mildly dilated ascending aorta. Pericardium/Pleural * Small pericardial effusion. * There are no echocardiographic indications of cardiac tamponade. Great Vessels * The inferior vena cava is mildly dilated. MMode 2D Measurements and Calculations IVSd 1.1 cm IVSs 1.3 cm LVIDd 5.4 cm LVIDs 4.5 cm LVPWd 1.1 cm LVPWs 1.8 cm IVS/LVPW 0.98 FS 16.9 % EDV(Teich) 143.2 ml ESV(Teich) 93.1 ml EF(Teich) 35.0 % EDV(cubed) 160.2 ml ESV(cubed) 91.9 ml EF(cubed) 42.6 % % IVS thick 20.3 % % LVPW thick 62.2 % LV mass(C)d 238.3 grams LV mass(C)dI 132.4 grams/m\S\2 LV mass(C)s 294.8 grams LV mass(C)sI 163.7 grams/m\S\2 SV(Teich) 50.1 ml SI(Teich) 27.8 ml/m\S\2 SV(cubed) 68.3 ml SI(cubed) 37.9 ml/m\S\2 Ao root diam 3.1 cm Ao root area 7.6 cm\S\2 LA dimension 5.0 cm asc Aorta Diam 3.9 cm LA/Ao 1.6 LVAd ap4 38.7 cm\S\2 LVLd ap4 8.8 cm EDV(MOD-sp4) 139.5 ml EDV(sp4-el) 143.6 ml LVAs ap4 28.4 cm\S\2 LVLs ap4 7.7 cm ESV(MOD-sp4) 86.0 ml ESV(sp4-el) 88.3 ml EF(MOD-sp4) 38.4 % EF(sp4-el) 38.5 % LVAd ap2 38.4 cm\S\2 LVLd ap2 8.6 cm EDV(MOD-sp2) 144.0 ml EDV(sp2-el) 146.1 ml LVAs ap2 30.8 cm\S\2 LVLs ap2 8.1 cm ESV(MOD-sp2) 100.0 ml ESV(sp2-el) 99.1 ml EF(MOD-sp2) 30.5 % EF(sp2-el) 32.1 % LVLd %diff -2.96 % EDV(MOD-bp) 143.7 ml LVLs %diff 5.0 % ESV(MOD-bp) 95.4 ml EF(MOD-bp) 33.6 % SV(MOD-sp4) 53.5 ml SI(MOD-sp4) 29.7 ml/m\S\2 SV(MOD-sp2) 44.0 ml SI(MOD-sp2) 24.4 ml/m\S\2 SV(MOD-bp) 48.3 ml SI(MOD-bp) 26.8 ml/m\S\2 SV(sp4-el) 55.3 ml SI(sp4-el) 30.7 ml/m\S\2 SV(sp2-el) 46.9 ml SI(sp2-el) 26.1 ml/m\S\2 Doppler Measurements and Calculations Ao V2 max 125.2 cm/sec Ao max PG 6.3 mmHg Ao max PG (full) 5.3 mmHg LV V1 max PG 0.96 mmHg LV V1 max 49.1 cm/sec MR max nell 470.2 cm/sec MR max PG 88.4 mmHg TR max nell 302.8 cm/sec
[2017-01-27] MEDS: ACYCLOVIR 5% OINT 15 GM TUBE EXT SCH ×3 (12:41→18:21)
[2017-01-27] MEDS ORDERED: DEXTROSE 50% 50 ML SYR IV PRN (13:00)
[2017-01-27] MEDS ORDERED: CHLORDIAZEPOXIDE 10 MG CAP ONE (14:52)
[2017-01-27 16:46] LABS: PARTIAL THROMBOPLASTIN RATIO 3.2
[2017-01-27] MEDS ORDERED: NURSING VERBAL MED ORDER ONE (18:00)
[2017-01-27] MEDS ORDERED: MAGNESIUM SULFATE 1GM / D5W 1 GM in PREMIXED IN D5W 100 ML IV ONE (18:15)
[2017-01-27] MEDS: HEPARIN 25,000 UNIT/500ML D5W 500 ML IV PRN (18:29)
[2017-01-27] MEDS: LEVOFLOXACIN / D5W 750 MG in PREMIXED IN D5W 150 ML IV SCH (19:53)
[2017-01-27] MEDS: CHLORDIAZEPOXIDE 50MG Q8H DOSE PO SCH ×2 (20:00→22:21)
[2017-01-27 23:27] LABS: PARTIAL THROMBOPLASTIN RATIO 1.4
[2017-01-28] VITALS (7 sets, daily range): BP systolic 112–129; BP diastolic 66–94; PULSE 89–118; TEMP 36.5–36.9; O2SAT 91–97
[2017-01-28] MEDS ORDERED: HEPARIN IV BOLUS 5,000 UNIT in SYRINGE 0 ML IV STA (00:12)
[2017-01-28] MEDS: LORAZEPAM 2 MG/ML 1 ML VIAL IV PRN ×4 (01:36→14:39)
[2017-01-28] MEDS ORDERED: HALOPERIDOL LACTATE 5 MG/ML 1 ML VIAL IM STA (04:34)
[2017-01-28] MEDS ORDERED: NURSING VERBAL MED ORDER ONE (04:45)
[2017-01-28] MEDS: METOPROLOL TARTRATE 1 MG/ML VIAL IV PRN (05:48)
[2017-01-28] MEDS: CHLORDIAZEPOXIDE 50MG Q8H DOSE PO SCH ×3 (06:00→15:52)
[2017-01-28 06:51] LABS: BASO % 0.9 %; BASO ABS # 0.05 K/uL (0-0.2); COMPLETE YES; EOS % 1.1 %; IG% 0.2 %; LYMPH % 19.4 %; LYMPH ABS # 1.05 K/uL (1.2-3.4); MEAN CELL VOLUME 90.5 fL (80-100); MEAN CORPUSCULAR HEMOGLOBIN 26.6 pg (25-34); MEAN CORPUSCULAR HGB CONC 29.4 g/dl (32-36); MEAN PLATELET VOLUME 9.1 fL (7.4-10.4); MONO % 8.9 %; NEUT % 69.5 %; PLATELET COUNT 263 K/uL (130-400); RED BLOOD COUNT 3.98 M/uL (4.2-5.4)
[2017-01-28] MEDS: SUCRALFATE 1 GM TAB PO SCH ×4 (07:00→21:42)
[2017-01-28 07:05] LABS: PARTIAL THROMBOPLASTIN RATIO 3.6
[2017-01-28 07:25] LABS: BUN/CREATININE RATIO 6.7 (10-20); CALCIUM 7.8 mg/dl (8.5-10.1); CREATININE 0.87 mg/dl (0.60-1.20); MAGNESIUM 1.9 mg/dl (1.8-2.4); POTASSIUM 3.5 mmol/L (3.5-5.1)
[2017-01-28] MEDS ORDERED: LISINOPRIL 2.5 MG TAB PO SCH (09:00)
[2017-01-28] MEDS: MULTI-VITAMIN INFUSION INJ 10 ML, FoLIC ACID INJ 1 MG, THIAMINE HCL INJ 100 MG in SODIU... IV SCH (09:55)
[2017-01-28] MEDS: ACYCLOVIR 5% OINT 15 GM TUBE EXT SCH ×5 (10:00→19:43)
[2017-01-28] MEDS: CIPROFLOXACIN 500 MG TAB PO SCH ×2 (11:30→21:42)
[2017-01-28] MEDS: ASPIRIN 81 MG ECTAB PO SCH (11:31)
[2017-01-28] MEDS: PANTOprazole SOD 40 MG TAB PO SCH ×2 (11:31→21:43)
[2017-01-28] MEDS: CARVEDILOL 3.125 MG TAB PO SCH ×2 (11:31→21:43)
[2017-01-28] MEDS: ESCITALOPRAM OXALATE 10 MG TAB PO SCH (11:31)
[2017-01-28] MEDS: ATORVASTATIN 40 MG TAB PO SCH (11:31)
[2017-01-28] MEDS: POTASSIUM CHLORIDE 20 MEQ TABCR PO SCH (11:31)
[2017-01-28 14:04] LABS: PARTIAL THROMBOPLASTIN RATIO 3.6
--- NOTE | 2017-01-28 14:11 | Progress Note ---
Subjective Date of Service: Jan 28, 2017. Subjective PT is bewildered at times and restless at others is drowsy and lethargic, she has family at bedside and updated, she denies any current or recent chest pain and friend at bedside and updated Problem List Medical Problems: (1) Acute electrocardiogram changes Status: Acute (2) Dizziness Status: Acute (3) Elevated troponin Status: Acute (4) Hypokalemia Status: Acute (5) Hypomagnesemia Status: Acute (6) Weakness Status: Acute Review of Systems Constitutional: + weakness, + fatigue, No fever, No chills Respiratory: No cough, No sputum, No shortness of breath, No dyspnea on exertion Cardiac: No chest pain, No orthopnea, No edema Abdomen: No pain, No nausea, No vomiting, No diarrhea Female : No dysuria, No urinary frequency Neurologic: + balance problems, No memory loss Psychiatric: + anxiety, + substance abuse Objective Vital Signs Date Time Temp Pulse Resp B/P (MAP) Pulse Ox O2 Delivery O2 Flow Rate FiO2 01/28/17 05:48 136 125/66 01/28/17 04:00 Room Air 01/28/17 03:26 118 24 125/66 (85) 94 Room Air 01/28/17 00:00 Room Air 01/27/17 23:21 36.8 108 26 124/84 (97) 94 Room Air 01/27/17 22:13 110 24 128/96 (107) 94 Room Air 01/27/17 20:00 Room Air 01/27/17 16:05 Room Air 01/27/17 15:28 36.8 106 22 115/79 (91) 96 Room Air 01/27/17 12:06 36.7 106 18 133/83 (100) 97 01/27/17 12:03 Room Air 01/27/17 09:48 80 105/89 (94) 01/27/17 08:47 36.7 83 20 156/106 (123) 98 Room Air 01/27/17 08:05 Room Air Physical Exam General Appearance: WD/WN, + moderate distress Eyes: PERRL, EOMI Neck: supple, trachea midline Respiratory/Chest: chest non-tender, lungs clear, normal breath sounds Cardiovascular: regular rate, rhythm, + systolic murmur Abdomen: normal bowel sounds, non tender, soft Extremities: no pedal edema, no calf tenderness Neurologic/Psychiatric: alert, + depressed affect Skin: normal color, warm/dry Laboratory Results Last 24 Hours Test 01/27/17 11:06 01/27/17 15:22 01/27/17 16:17 01/27/17 16:18 Bedside Glucose 98 mg/dl 97 mg/dl Troponin I 0.052 ng/ml Activated Partial Thromboplast Time 82.3 SECONDS Partial Thromboplastin Ratio 3.2 Test 01/27/17 23:12 01/28/17 06:16 01/28/17 06:40 Activated Partial Thromboplast Time 35.2 SECONDS 93.1 SECONDS Partial Thromboplastin Ratio 1.4 3.6 Bedside Glucose 140 mg/dl White Blood Count 5.40 K/uL Red Blood Count 3.98 M/uL Hemoglobin 10.6 g/dL Hematocrit 36.0 % Mean Corpuscular Volume 90.5 fL Mean Corpuscular Hemoglobin 26.6 pg Mean Corpuscular Hemoglobin Concent 29.4 g/dl Platelet Count 263 K/uL Mean Platelet Volume 9.1 fL Neutrophils (%) (Auto) 69.5 % Lymphocytes (%) (Auto) 19.4 % Monocytes (%) (Auto) 8.9 % Eosinophils (%) (Auto) 1.1 % Basophils (%) (Auto) 0.9 % Neutrophils # (Auto) 3.75 K/uL Lymphocytes # (Auto) 1.05 K/uL Monocytes # (Auto) 0.48 K/uL Eosinophils # (Auto) 0.06 K/uL Basophils # (Auto) 0.05 K/uL RDW Standard Deviation 60.9 fL RDW Coefficient of Variation 18.2 % Immature Granulocyte % (Auto) 0.2 % Immature Granulocyte # (Auto) 0.01 K/uL Sodium Level 144 mmol/L Potassium Level 3.5 mmol/L Chloride Level 113 mmol/L Carbon Dioxide Level 19 mmol/L Anion Gap 12.0 mmol/L Blood Urea Nitrogen 6 mg/dl Creatinine 0.87 mg/dl Est Creatinine Clear Calc Drug Dose 65.1 ml/min Estimated GFR () 82.2 Estimated GFR (Non- 70.9 BUN/Creatinine Ratio 6.7 Random Glucose 128 mg/dl Calcium Level 7.8 mg/dl Magnesium Level 1.9 mg/dl Assessment and Plan 61 F with alcohol withdrawal, ECG changes and elevated troponin, marked chronic systolic/diastolic heart failure with severe mitral regurgitation NSTEMI heparin drip-,EF 25%, mitral regurg is severe, will start low dose lizeth and coreg, tachycardia maybe from withdrawal or from need for cardiac output, discussion with cardiology if metoprolol would be better choice for B [place], ASA 81 mg and atorvastatin 40 mg daily watch volume status, did have some VT, magnesium repleted, may benefit from non treadmill ischemic evaluation once thru withdrawal Hypokalemia replete Alcohol withdrawal Librium taper per protocol IV ativan continues with agitation - PT/OT consulted. Urine culturepan sensitive e coli will change levaquin to cipro Depression/anxiety hard to guage in withdrawal ,lexapro 10 mg daily GERD omeprazole and Carafate DVT ppx with heparin gtt, teds, scds CODE STATUS: FULL CODE Documented By: Aeljandro West
[2017-01-28] MEDS: CHLORDIAZEPOXIDE 25MG Q8H DOSE PO SCH (21:42)
[2017-01-28] MEDS: HEPARIN 25,000 UNIT/500ML D5W 500 ML IV PRN (21:42)
[2017-01-28 22:43] LABS: PARTIAL THROMBOPLASTIN RATIO 3.2
[2017-01-29] VITALS (9 sets, daily range): BP systolic 121–139; BP diastolic 83–94; PULSE 94–115; TEMP 36.5–37; O2SAT 90–100
[2017-01-29] MEDS: LORAZEPAM 2 MG/ML 1 ML VIAL IV PRN ×5 (01:42→13:36)
[2017-01-29 04:19] LABS: BASO % 0.6 %; BASO ABS # 0.03 K/uL (0-0.2); COMPLETE YES; EOS % 0.8 %; HEMATOCRIT 34.7 % (37-47); IG% 0.4 %; LYMPH % 24.5 %; LYMPH ABS # 1.23 K/uL (1.2-3.4); MEAN CELL VOLUME 89.9 fL (80-100); MEAN CORPUSCULAR HEMOGLOBIN 27.2 pg (25-34); MEAN CORPUSCULAR HGB CONC 30.3 g/dl (32-36); MEAN PLATELET VOLUME 9.3 fL (7.4-10.4); MONO % 11.5 %; NEUT % 62.2 %; PLATELET COUNT 251 K/uL (130-400); RED BLOOD COUNT 3.86 M/uL (4.2-5.4); WHITE BLOOD COUNT 5.03 K/uL (4.8-10.8)
[2017-01-29 04:36] LABS: BUN/CREATININE RATIO 6.2 (10-20); CALCIUM 8.3 mg/dl (8.5-10.1); CREATININE 0.78 mg/dl (0.60-1.20); POTASSIUM 3.4 mmol/L (3.5-5.1)
[2017-01-29 04:48] LABS: PARTIAL THROMBOPLASTIN RATIO 2.7
[2017-01-29] MEDS: CHLORDIAZEPOXIDE 25MG Q8H DOSE PO SCH ×2 (05:42→13:19)
[2017-01-29] MEDS: HEPARIN 25,000 UNIT/500ML D5W 500 ML IV PRN ×2 (06:03→06:05)
--- NOTE | 2017-01-29 07:19 | Progress Note ---
Subjective Date of Service: Jan 29, 2017. Subjective this pt is sedate and continues to fail CIWA scale to get iv ativan on top of librium, at this point I feel she maybe oversedate, repeated LFTs a mixed bag with some worsening and others not, ammonia is normal INR slightly elevated but sodium is normal. will stop CIWA scoring and use librium taper and prn ativan at nursing digression Problem List Medical Problems: (1) Acute electrocardiogram changes Status: Acute (2) Dizziness Status: Acute (3) Elevated troponin Status: Acute (4) Hypokalemia Status: Acute (5) Hypomagnesemia Status: Acute (6) Weakness Status: Acute Review of Systems Constitutional: + weakness, + fatigue, No fever, No chills sedation prevents ROS Objective Vital Signs Date Time Temp Pulse Resp B/P (MAP) Pulse Ox O2 Delivery O2 Flow Rate FiO2 01/29/17 04:00 Room Air 01/29/17 03:16 36.6 111 18 139/94 (109) 92 Room Air 01/29/17 00:00 Room Air 01/29/17 00:00 36.6 109 20 138/ (46) 93 Room Air 127/89 (102) 01/28/17 20:00 Room Air 01/28/17 19:27 36.9 108 21 128/83 (98) 95 Room Air 01/28/17 19:15 36.9 108 21 95 01/28/17 16:00 Room Air 01/28/17 15:09 36.5 99 20 112/94 (100) 92 Room Air 01/28/17 14:32 36.6 105 31 112/76 (88) 97 Room Air 01/28/17 12:00 Room Air 01/28/17 11:24 36.6 89 18 119/86 (97) 95 Room Air 01/28/17 08:00 Room Air 01/28/17 07:53 36.6 98 20 129/78 (95) 91 Room Air Physical Exam General Appearance: WD/WN, + moderate distress Eyes: PERRL, EOMI Respiratory/Chest: + decreased breath sounds, + accessory muscle use, + rhonchi Cardiovascular: regular rate, rhythm, no murmur Abdomen: normal bowel sounds, non tender, soft Extremities: no calf tenderness, + pedal edema (trace) Neurologic/Psychiatric: + depressed affect, + disoriented Laboratory Results Last 24 Hours Test 01/28/17 13:25 01/28/17 22:15 01/29/17 04:00 Activated Partial Thromboplast Time 94.5 SECONDS 84.2 SECONDS 70.7 SECONDS Partial Thromboplastin Ratio 3.6 3.2 2.7 White Blood Count 5.03 K/uL Red Blood Count 3.86 M/uL Hemoglobin 10.5 g/dL Hematocrit 34.7 % Mean Corpuscular Volume 89.9 fL Mean Corpuscular Hemoglobin 27.2 pg Mean Corpuscular Hemoglobin Concent 30.3 g/dl Platelet Count 251 K/uL Mean Platelet Volume 9.3 fL Neutrophils (%) (Auto) 62.2 % Lymphocytes (%) (Auto) 24.5 % Monocytes (%) (Auto) 11.5 % Eosinophils (%) (Auto) 0.8 % Basophils (%) (Auto) 0.6 % Neutrophils # (Auto) 3.13 K/uL Lymphocytes # (Auto) 1.23 K/uL Monocytes # (Auto) 0.58 K/uL Eosinophils # (Auto) 0.04 K/uL Basophils # (Auto) 0.03 K/uL RDW Standard Deviation 60.2 fL RDW Coefficient of Variation 18.4 % Immature Granulocyte % (Auto) 0.4 % Immature Granulocyte # (Auto) 0.02 K/uL Sodium Level 145 mmol/L Potassium Level 3.4 mmol/L Chloride Level 113 mmol/L Carbon Dioxide Level 23 mmol/L Anion Gap 9.0 mmol/L Blood Urea Nitrogen 5 mg/dl Creatinine 0.78 mg/dl Est Creatinine Clear Calc Drug Dose 72.6 ml/min Estimated GFR () 93.8 Estimated GFR (Non- 80.9 BUN/Creatinine Ratio 6.2 Random Glucose 114 mg/dl Calcium Level 8.3 mg/dl Assessment and Plan 61 F with alcohol withdrawal, ECG changes and elevated troponin, marked chronic systolic/diastolic heart failure with severe mitral regurgitation NSTEMI stopped heprain now after 48 hours as trop trended down and no cardiac symptoms, ECHO-,EF 25%, mitral regurg is severe,titrate lizeth and coreg, tachycardia maybe from withdrawal or from need for cardiac output, ASA 81 mg and atorvastatin 40 mg daily watch volume status, did have some VT, magnesium repleted, schedule for jayson scan this week, once alcohol issues are put to rest Hypokalemia continues low replete Alcohol withdrawal given "failing" ciwa scale frequenlty will stop scale as may have had too much medication, use prn ativan plus low dose scheduled librium - PT/OT consulted. Urine culture perkins sensitive e coli will change levaquin to cipro Depression/anxiety hard to guage in withdrawal ,lexapro 10 mg daily GERD omeprazole and Carafate DVT ppx with heparin gtt, teds, scds CODE STATUS: FULL CODE Documented By: Alejandro West
[2017-01-29] MEDS: SUCRALFATE 1 GM TAB PO SCH ×4 (08:39→20:31)
[2017-01-29] MEDS: CIPROFLOXACIN 500 MG TAB PO SCH ×2 (08:39→20:31)
[2017-01-29] MEDS: CARVEDILOL 6.25 MG TAB PO SCH ×2 (08:39→20:31)
[2017-01-29] MEDS: ACYCLOVIR 5% OINT 15 GM TUBE EXT SCH ×5 (08:39→20:29)
[2017-01-29] MEDS: ASPIRIN 81 MG ECTAB PO SCH (08:40)
[2017-01-29] MEDS: PANTOprazole SOD 40 MG TAB PO SCH ×2 (08:40→20:31)
[2017-01-29] MEDS: POTASSIUM CHLORIDE 20 MEQ TABCR PO SCH (08:40)
[2017-01-29] MEDS: ESCITALOPRAM OXALATE 10 MG TAB PO SCH (08:40)
[2017-01-29] MEDS: ATORVASTATIN 40 MG TAB PO SCH (08:40)
[2017-01-29] MEDS: LISINOPRIL 5 MG TAB PO SCH (08:40)
[2017-01-29] MEDS: POTASSIUM CHLR 10 MEQ / WTR 10 MEQ in PREMIXED WATER 100 ML IV SCH ×3 (08:55→11:44)
[2017-01-29] MEDS: MULTI-VITAMIN INFUSION INJ 10 ML, FoLIC ACID INJ 1 MG, THIAMINE HCL INJ 100 MG in SODIU... IV SCH (08:55)
[2017-01-29 11:54] LABS: PARTIAL THROMBOPLASTIN RATIO 2.4
[2017-01-29 12:06] LABS: INR 1.6 (0.9-1.1); PROTHROMBIN TIME (PATIENT) 17.5 SECONDS (9.0-12.0)
[2017-01-29] MEDS: METOPROLOL TARTRATE 1 MG/ML VIAL IV PRN (13:52)
--- NOTE | 2017-01-29 14:22 | DIAGNOSTIC IMAGING REPORT ---
CT SCAN OF THE BRAIN WITHOUT IV CONTRAST CLINICAL HISTORY: Change in mental status. COMPARISON STUDY: CT of the brain dated 01/26/2017. TECHNIQUE: Unenhanced axial CT scan of the brain is performed from the vertex to the skull base. The patient was scanned twice due to motion artifact. The examination is significantly motion degraded, and is also degraded by suboptimal positioning within the CT gantry. CT DOSE: 1418.95 mGy.cm FINDINGS: Brain parenchyma: There are age-related involutional changes noting moderate to advanced confluent subcortical and periventricular microangiopathic change. There is no hemorrhage, mass effect, or evidence of acute territorial ischemia by CT criteria. Molina-white matter is preserved. No extra-axial fluid collection is seen. Ventricles, sulci, cisterns: Prominent secondary to involutional change. Intracranial vasculature: There is atherosclerotic calcification of the cavernous carotid arteries.. Calvarium: Unremarkable. Sinuses and mastoids: The visualized paranasal sinuses are clear. The mastoid air cells are well pneumatized. Orbits: The bony orbits are grossly intact. IMPRESSION: 1. Significantly motion degraded examination. 2. Senescent changes as above with no hemorrhage, mass effect, or evidence of acute territorial ischemia by CT criteria. Electronically signed by: Drew Lazo M.D. 01/29/2017 2:21 PM Dictated Date/Time: 01/29/2017 2:17 PM
--- NOTE | 2017-01-29 15:08 | PROGRESS NOTE ---
DATE: 01/29/2017 SUBJECTIVE: The patient was seen by me this afternoon in her telemetry unit room. She remains lethargic and disoriented. No purposeful answers to questions. She has a assistant professor of nursing sitter in her room with her. As stated above, patient does not answer any questions. She does not open her eyes to questions. She moves about the bed, moaning with her eyes closed. CURRENT MEDICATIONS: Acyclovir ointment 1 application every 3 hours for 5 days, sucralfate 1 gram daily, pantoprazole 40 mg b.i.d., ciprofloxacin 500 mg b.i.d., carvedilol 6.25 mg b.i.d., Lexapro 10 mg daily, Librium 25 mg q. 8 hours, aspirin 81 mg daily, atorvastatin 40 mg daily, potassium 40 mEq daily, lisinopril 5 mg daily, metoprolol tartrate 5 mg IV q. 6 hours p.r.n. hypertension and tachycardia. Of note is because of her altered mental status, she did not receive sucralfate, pantoprazole, ciprofloxacin, carvedilol, Lexapro, aspirin, atorvastatin, or potassium Also, she did not receive lisinopril. PHYSICAL EXAMINATION: VITAL SIGNS: This morning axillary temperature was 37.0, pulse 102, blood pressure 122/83, pulse oximetry room air 90%. NECK: No obvious jugular venous distention. LUNGS: Normal respiratory effort. No rales or wheezes. HEART: Increased rate. Regular rhythm. No murmur, S3, or rub heard. ABDOMEN: Soft. Normal bowel sounds. No palpable masses or organomegaly. EXTREMITIES: No pretibial edema. DIAGNOSTIC DATA: Electrocardiogram performed yesterday and reviewed by me revealed normal sinus rhythm, possible left atrial enlargement, inferior lateral ST-T wave abnormalities suggestive of ischemia. Compared to the electrocardiogram of January 27, ST segment depressions in the anterior leads, no longer present. Echocardiogram performed on January 27 and reviewed and interpreted by me showed LV ejection fraction of 25% to 30%. Global hypokinesis of the left ventricle. Severe mitral regurgitation. Noeqegsz-qq-qbsbed tricuspid regurgitation. Moderate pulmonary hypertension. Elevated central venous pressure. Small pericardial effusion without tamponade. Mild right ventricular systolic dysfunction. Borderline left ventricular and mild right ventricular dilatation. Moderate biatrial dilatation. LABORATORY DATA: Today was WBC 5.03, hemoglobin 10.5, hematocrit 34.7, platelet count 251. INR 1.6. Metabolic profile: Sodium 145, potassium 3.4, chloride 113, carbon dioxide 23, BUN 5, creatinine 0.78, random glucose 114. AST 192. ALT 101. Total bilirubin 1.3. ASSESSMENT: 1. Alcohol withdrawal and possible delirium tremens. 2. Eazuwmhd-ta-uotllq left ventricular systolic dysfunction. Severe mitral regurgitation. Tugwqneh-zx-jjsoie tricuspid regurgitation. 3. No evidence of pulmonary vascular congestion on exam. She does have a low oxygen saturation on room air, this may be secondary to hypoventilation. 4. Elevated troponin I on this admission. Peak troponin I was 0.62, this is only a mild elevation, suspect secondary to demand ischemia. She had tachycardia and hypertension with her alcohol withdrawal. 5. No significant arrhythmias noted on review of monitor by me. 6. Sinus tachycardia secondary to her alcohol withdrawal. Also, the cardiomyopathy would be contributory. Her blood pressure is good today. 7. Inability to take oral medication secondary to her altered mental status. 8. Increasing INR since admission. Increasing liver function tests since admission. RECOMMENDATIONS: 1. Switch medications to parenteral formulation until she can take oral medications adequately. Would continue to use intravenous metoprolol tartrate. When she is able to take oral medications, can place her back on carvedilol and lisinopril. 2. Consider imaging of her liver, gallbladder, and bile duct. 3. Continue to monitor her INR and liver function test, we would consider repeating tomorrow. 4. At this time, any additional cardiac testing would be contraindicated. Ultimately, patient would require an evaluation for myocardial ischemia. At this time, in light of her general medical status, we would favor proceeding first with noninvasive testing such as a Lexiscan, Cardiolite scan. This could certainly not be performed until patient has returned to normal on mental status. There is no indication for an urgent cardiac catheterization procedure. ABDI
[2017-01-29] MEDS ORDERED: LORAZEPAM 2 MG/ML 1 ML VIAL IV PRN ×2 (16:15)
[2017-01-29] MEDS ORDERED: FUROSEMIDE INJ 20 MG in SYRINGE 0 ML IV SCH (17:45)
--- NOTE | 2017-01-29 20:20 | DIAGNOSTIC IMAGING REPORT ---
CHEST ONE VIEW PORTABLE HISTORY: eval for asp pneumonia COMPARISON: Chest 01/26/2017. FINDINGS: The heart is mildly enlarged. Progression of the interstitial vascular thickening consistent with mild pulmonary edema. Small bilateral pleural effusions. Patchy bibasilar densities. Postoperative changes within the right humerus. IMPRESSION: 1. Mild pulmonary edema and small bilateral pleural effusions. 2. Patchy bibasilar densities. This could be due to atelectasis from the pulmonary edema or a pneumonia. Follow-up is recommended to ensure resolution. Electronically signed by: Obi Parada M.D. 01/29/2017 8:18 PM Dictated Date/Time: 01/29/2017 8:17 PM
[2017-01-29] MEDS: CHLORDIAZEPOXIDE 10MG Q12H DOSE PO SCH (23:36)
[2017-01-30] VITALS (11 sets, daily range): BP systolic 110–143; BP diastolic 64–94; PULSE 74–107; TEMP 36.3–37.4; O2SAT 87–98
[2017-01-30 08:10] LABS: BASO % 0.4 %; BASO ABS # 0.02 K/uL (0-0.2); COMPLETE YES; EOS % 1.1 %; HEMATOCRIT 33.4 % (37-47); IG% 0.2 %; LYMPH % 19.5 %; LYMPH ABS # 0.89 K/uL (1.2-3.4); MEAN CELL VOLUME 88.6 fL (80-100); MEAN CORPUSCULAR HEMOGLOBIN 27.1 pg (25-34); MEAN CORPUSCULAR HGB CONC 30.5 g/dl (32-36); MEAN PLATELET VOLUME 9.6 fL (7.4-10.4); MONO % 9.4 %; NEUT % 69.4 %; PLATELET COUNT 189 K/uL (130-400); RED BLOOD COUNT 3.77 M/uL (4.2-5.4); WHITE BLOOD COUNT 4.57 K/uL (4.8-10.8)
[2017-01-30 08:34] LABS: CREATININE 0.63 mg/dl (0.60-1.20); POTASSIUM 2.9 mmol/L (3.5-5.1)
[2017-01-30 08:45] LABS: CALCIUM 7.8 mg/dl (8.5-10.1)
[2017-01-30 08:57] LABS: INR 1.7 (0.9-1.1); PROTHROMBIN TIME (PATIENT) 18.7 SECONDS (9.0-12.0)
--- NOTE | 2017-01-30 09:33 | DIAGNOSTIC IMAGING REPORT ---
DOPPLER ULTRASOUND OF THE HEPATIC AND PORTAL VASCULATURE CLINICAL HISTORY: Myocardial infarction. Generalized abdominal pain. COMPARISON STUDY: Abdominal CT dated 03/07/2010. FINDINGS: Real-time, grayscale, and color Doppler sonography of the hepatic and portal venous vasculature is performed. The examination is degraded by suboptimal patient cooperation. The IVC is patent. The hepatic veins are patent with normal hepatic venous waveforms. The main portal vein as well as the right and left lobe portal veins are patent with normal direction of flow. A right pleural effusion is incidentally noted. IMPRESSION: 1. Unremarkable sonographic assessment of the hepatic and portal vasculature. 2. Small right pleural effusion. Electronically signed by: Drew Lazo M.D. 01/30/2017 9:31 AM Dictated Date/Time: 01/30/2017 9:29 AM
--- NOTE | 2017-01-30 10:00 | Hospitalist Progress Note ---
Hospitalist Progress Note Date of Service Jan 30, 2017. (Luli Singh PA-C) Subjective Pt evaluation today including: conversation w/ patient, physical exam, chart review, lab review, review of studies Voiding: miguel catheter in place The patient was seen and examined this morning. Pt is awake and squirming around in bed. She is able to answer most questions today, and says she's in a hospital. When asked about pain she says yes, but is unable to name the location. She denies any lightheadedness or dizziness. Additional Comments: ROS: Constitutional: No fever, sweats or chills ENT: normal hearing, no trouble swallowing Respiratory: No cough, sputum, dyspnea at rest or on exertion Cardiovascular: No chest pain, tightness or palpitations Abdomen: No pain, nausea, vomiting, diarrhea or constipation Neurologic: No weakness, numbness/tingling, or balance problems (Luli Singh PA-C) Objective Vital Signs Date Time Temp Pulse Resp B/P (MAP) Pulse Ox O2 Delivery O2 Flow Rate FiO2 01/30/17 08:00 Nasal Cannula 2.0 01/30/17 07:10 94 17 127/82 (97) 98 Nasal Cannula 2.0 01/30/17 04:00 Nasal Cannula 2.0 01/30/17 03:51 36.3 105 26 140/92 (108) 96 Nasal Cannula 2.0 01/30/17 00:00 Nasal Cannula 2.0 01/29/17 23:53 36.7 97 22 130/89 (103) 96 Nasal Cannula 2.0 01/29/17 20:00 Nasal Cannula 2.0 01/29/17 18:55 36.7 94 21 123/92 (102) 98 Nasal Cannula 2.0 01/29/17 15:35 Nasal Cannula 2.0 01/29/17 15:35 100 Nasal Cannula 2.0 01/29/17 15:15 36.5 100 18 121/87 (98) 91 Room Air 01/29/17 13:52 115 135/92 01/29/17 12:00 Room Air 01/29/17 12:00 Room Air 01/29/17 11:00 102 90 01/29/17 10:54 37.0 102 17 122/83 (96) 90 Room Air (Luli Singh PA-C) Physical Exam Notes: General: awake but keeps her eyes closed during exam, squirming in bed, alert, answers most questions appropriately Head: Normocephalic, atraumatic ENT: PERRL, EOMI, poor dentition, mucous membranes are dry, Chest: On room air, faint bibasilar crackles, no adventitious breath sounds Cardiac: Regular rate and rhythm, no murmur, no JVD, normal peripheral pulses, good capillary refill Abdominal: NABS x 4 quadrants, soft, nontender to palpation, no rebound, guarding or tenderness Extremities: Multiple areas of ecchymosis overlying upper and lower extremities , no peripheral edema or erythema, calfs nontender to palpation Psych: Difficult to determine Neuro: Oriented to place, but not to time or date. (Luli Singh PA-C) Laboratory Results Last 24 Hours Test 01/29/17 11:27 01/29/17 11:47 01/30/17 07:20 01/30/17 08:45 Activated Partial Thromboplast Time 63.0 SECONDS Partial Thromboplastin Ratio 2.4 Prothrombin Time 17.5 SECONDS 18.7 SECONDS Prothromb Time International Ratio 1.6 1.7 Total Bilirubin 1.3 mg/dl 1.0 mg/dl Direct Bilirubin 0.6 mg/dl 0.5 mg/dl Aspartate Amino Transf (AST/SGOT) 192 U/L 1448 U/L Alanine Aminotransferase (ALT/SGPT) 101 U/L 609 U/L Alkaline Phosphatase 120 U/L 118 U/L Ammonia 13.0 umol/L Total Protein 5.9 gm/dl 5.3 gm/dl Albumin 3.0 gm/dl 2.7 gm/dl White Blood Count 4.57 K/uL Red Blood Count 3.77 M/uL Hemoglobin 10.2 g/dL Hematocrit 33.4 % Mean Corpuscular Volume 88.6 fL Mean Corpuscular Hemoglobin 27.1 pg Mean Corpuscular Hemoglobin Concent 30.5 g/dl Platelet Count 189 K/uL Mean Platelet Volume 9.6 fL Neutrophils (%) (Auto) 69.4 % Lymphocytes (%) (Auto) 19.5 % Monocytes (%) (Auto) 9.4 % Eosinophils (%) (Auto) 1.1 % Basophils (%) (Auto) 0.4 % Neutrophils # (Auto) 3.17 K/uL Lymphocytes # (Auto) 0.89 K/uL Monocytes # (Auto) 0.43 K/uL Eosinophils # (Auto) 0.05 K/uL Basophils # (Auto) 0.02 K/uL RDW Standard Deviation 59.6 fL RDW Coefficient of Variation 18.5 % Immature Granulocyte % (Auto) 0.2 % Immature Granulocyte # (Auto) 0.01 K/uL Sodium Level 146 mmol/L Potassium Level 2.9 mmol/L Chloride Level 110 mmol/L Carbon Dioxide Level 24 mmol/L Anion Gap 12.0 mmol/L Blood Urea Nitrogen 6 mg/dl Creatinine 0.63 mg/dl Est Creatinine Clear Calc Drug Dose 89.9 ml/min Estimated GFR () 110.6 Estimated GFR (Non- 95.5 BUN/Creatinine Ratio 9.0 Random Glucose 80 mg/dl Calcium Level 7.8 mg/dl (Luli Singh, PAMynorC) Assessment and Plan Pt is a 61 yo female with worsening weakness/dizziness x few weeks NSTEMI vs ST wave inversion in anterior-lateral leads secondary to electrolyte abnormalities - Stopped heparin drip - 2D echo completed, pt could not participate in stress test due to lethargy over the weekend. ECHO-,EF 25%, mitral regurg is severe,titrate lizeth and coreg, tachycardia maybe from withdrawal or from need for cardiac output - cont daily ASA 81 mg and atorvastatin 40 mg daily - Overnight patient was in Vtach rate as high as 190s, resolved at this time. - replace potassium IV today, total 40 meq, patient has not yet received oral medications, nursing plans to attempt this later today when she is more awake. At that time will give potassium PO. Weakness/dizziness - CIWA Scoring stopped, the patient was likely oversedated with medication, continue Librium taper and when necessary Ativan with nursing discretion - Librium 10 mg Q12H for withdrawal - B12 and folate are normal - PT/OT consulted. Escherichia coli UTI - Levaquin was transitioned to Cipro 500 mg BID as the culture was pansensitive. - Continue miguel with incontinence for now, if patient appears to be waking up more may consider of voiding trial later this evening or tomorrow morning Dyslipidemia - will cont statin Depression/anxiety - cont lexapro 10 mg daily - Difficult to assess GERD - cont omeprazole and Carafate DVT ppx with heparin gtt, teds, scds CODE STATUS: FULL CODE Disposition: would benefit from outpatient etoh counseling/therapy, possible in ~1 2 days (Luli Singh, VENUS) PA Physician Supervision Note: I interviewed and examined the patient. Discussed with Jane Singh PAC and agree with findings and plan as documented in the note. Any exceptions or clarifications are listed here: None This pt is doing better since reducing the ativan given under the ciwa protocol replete K vitals noted more awake car is regular, denies pain lungs clear but diminished abd is soft and non tender, hepatic u/s negative for portal thrombus supportive care and detox, auto anticoagulation/cirrhotic coagulopathy, will give po vitamin K will need stress once detox is complete Documented By: Alejandro West (Alejandro West M.D.)
[2017-01-30] MEDS: ACYCLOVIR 5% OINT 15 GM TUBE EXT SCH ×5 (10:11→19:12)
[2017-01-30] MEDS: POTASSIUM CHLR 10 MEQ / WTR 10 MEQ in PREMIXED WATER 100 ML IV SCH ×6 (10:11→20:16)
[2017-01-30] MEDS: SUCRALFATE 1 GM TAB PO SCH ×4 (10:11→21:30)
[2017-01-30] MEDS: CIPROFLOXACIN 500 MG TAB PO SCH ×2 (10:11→21:30)
[2017-01-30] MEDS: LISINOPRIL 5 MG TAB PO SCH (10:12)
[2017-01-30] MEDS: CARVEDILOL 6.25 MG TAB PO SCH ×2 (10:12→21:31)
[2017-01-30] MEDS: PANTOprazole SOD 40 MG TAB PO SCH ×2 (10:13→21:29)
[2017-01-30] MEDS: POTASSIUM CHLORIDE 20 MEQ TABCR PO SCH (10:13)
[2017-01-30] MEDS: ATORVASTATIN 40 MG TAB PO SCH (10:14)
[2017-01-30] MEDS: ASPIRIN 81 MG ECTAB PO SCH (10:14)
[2017-01-30] MEDS: ESCITALOPRAM OXALATE 10 MG TAB PO SCH (10:14)
[2017-01-30] MEDS: MULTI-VITAMIN INFUSION INJ 10 ML, FoLIC ACID INJ 1 MG, THIAMINE HCL INJ 100 MG in SODIU... IV SCH (10:18)
[2017-01-30] MEDS: CHLORDIAZEPOXIDE 10MG Q12H DOSE PO SCH (11:11)
[2017-01-30] MEDS: METOPROLOL TARTRATE 1 MG/ML VIAL IV PRN (13:01)
[2017-01-30] MEDS ORDERED: PHYTONADIONE 5 MG TAB PO ONE (18:00)
[2017-01-30] MEDS ORDERED: HYDROCORTISONE HC 2.5% CRM 30GM TUBE EXT PRN (18:00)
[2017-01-31] VITALS (9 sets, daily range): BP systolic 94–144; BP diastolic 62–88; PULSE 78–108; TEMP 36.5–37; O2SAT 95–99
[2017-01-31] MEDS: SUCRALFATE 1 GM TAB PO SCH ×4 (07:00→19:58)
[2017-01-31] MEDS: ACYCLOVIR 5% OINT 15 GM TUBE EXT SCH ×5 (08:05→19:26)
[2017-01-31] MEDS: NICOTINE 21 MG/24 HR TDSY TD SCH (08:05)
[2017-01-31 08:25] LABS: COMPLETE YES; HEMATOCRIT 34.1 % (37-47); IG% 0.1 %; LYMPH % 7.3 %; MEAN CORPUSCULAR HEMOGLOBIN 27.7 pg (25-34); MEAN CORPUSCULAR HGB CONC 31.1 g/dl (32-36); MEAN PLATELET VOLUME 9.6 fL (7.4-10.4); MONO % 10.4 %; NEUT % 82.2 %; PLATELET COUNT 175 K/uL (130-400); RED BLOOD COUNT 3.83 M/uL (4.2-5.4); WHITE BLOOD COUNT 6.89 K/uL (4.8-10.8)
[2017-01-31] MEDS: MULTI-VITAMIN INFUSION INJ 10 ML, FoLIC ACID INJ 1 MG, THIAMINE HCL INJ 100 MG in SODIU... IV SCH (08:59)
[2017-01-31] MEDS: ESCITALOPRAM OXALATE 10 MG TAB PO SCH (09:00)
[2017-01-31] MEDS: CIPROFLOXACIN 500 MG TAB PO SCH ×2 (09:00→19:59)
[2017-01-31] MEDS: PANTOprazole SOD 40 MG TAB PO SCH ×2 (09:00→19:59)
[2017-01-31] MEDS: ASPIRIN 81 MG ECTAB PO SCH (09:00)
[2017-01-31] MEDS: CARVEDILOL 6.25 MG TAB PO SCH ×2 (09:00→19:59)
[2017-01-31] MEDS: LISINOPRIL 5 MG TAB PO SCH (09:00)
[2017-01-31] MEDS: ATORVASTATIN 40 MG TAB PO SCH (09:00)
[2017-01-31] MEDS: POTASSIUM CHLORIDE 20 MEQ TABCR PO SCH (09:00)
[2017-01-31 09:05] LABS: CREATININE 0.74 mg/dl (0.60-1.20); POTASSIUM 4.3 mmol/L (3.5-5.1)
[2017-01-31 09:26] LABS: CALCIUM 8.4 mg/dl (8.5-10.1)
--- NOTE | 2017-01-31 17:10 | Progress Note ---
Progress Note Date of Service Jan 31, 2017. Progress Note Pt seen and examined by me. Pt has been restless, but not verbal. No emesis or PO intake. [place] with ongoing output. Sitter states when they try to position her on her back, she appears distressed and returns to lying on her side. No recent ativan Agree with above HPI and ROS as noted. Exam: Gen: pt moving around in bed, WDWN Neck: Supple Eyes: WNL Hrt: RRR , neg edema Lungs: CTA b/l, neg resp distress Abd: + BS, soft, nonTTP LE: neg for edema, nonTTP Neuro: does not open eyes or respond to verbal stimulus, moved hands away from chest when I said I was going to examine her heart Skin: neg for rash, warm/dry Plan: Agree with plan as outlined by Ms. Singh Oversedated with ativan in attempt to prevent withdrawal seizures UTI--cipro Liver US neg for acute CT head x2 neg for acute Question of PNA, cipro will cover ECHO with EF 25-30%, awaiting stress test
--- NOTE | 2017-01-31 20:20 | Hospitalist Progress Note ---
Hospitalist Progress Note Date of Service Jan 31, 2017. (Luli Singh PA-C) Subjective Pt evaluation today including: conversation w/ patient, physical exam, chart review, lab review, review of studies Pain: None PO Intake: Fair Voiding: miguel catheter in place The patient was seen and examined this morning. Pt is still fairly nonverbal, and doesn't answer most of my questions. She is able to tell me her birthday today, and that she doesn't have pain. She also knows she's in a hospital. Her 's director of business applications appears during my interview but she doesn't acknowledge him nor do I think she knew he was there. He didn't try to talk with her, and stayed at the foot of the bed. Nursing reports she's improved compared to yesterday. She denies chest pain and shortness of breath. Other than this ROS was unobtainable due to somnolence. Additional Comments: See HPI (Luli Singh PA-C) Objective Vital Signs Date Time Temp Pulse Resp B/P (MAP) Pulse Ox O2 Delivery O2 Flow Rate FiO2 01/31/17 19:08 37.0 103 22 110/77 (88) 97 Nasal Cannula 2.0 01/31/17 16:00 Nasal Cannula 2.0 01/31/17 15:12 36.5 104 22 144/82 (102) 99 Nasal Cannula 2.0 01/31/17 12:00 Nasal Cannula 2.0 01/31/17 11:31 36.6 101 18 126/86 (99) 97 2.0 01/31/17 08:00 Nasal Cannula 2.0 01/31/17 07:22 36.6 92 16 105/74 (84) 97 2.0 01/31/17 04:11 36.6 108 24 114/88 (97) 95 Nasal Cannula 3.0 01/31/17 04:00 98 Nasal Cannula 2.0 01/31/17 01:03 78 24 01/30/17 23:59 98 Nasal Cannula 2.0 01/30/17 23:47 36.6 48 116/94 (101) 94 Nasal Cannula 3.0 (Luli Singh PA-C) Physical Exam Notes: General: awakens to verbal stimuli, but keeps her eyes closed during exam, squirming slightly in bed, appears somnolent Head: Normocephalic, atraumatic ENT: PERRL, EOMI, poor dentition, mucous membranes moist Chest: On room air, lungs clear, no adventitious breath sounds Cardiac: Regular rate and rhythm, no murmur, no JVD, normal peripheral pulses, good capillary refill Abdominal: NABS x 4 quadrants, soft, nontender to palpation, no rebound, guarding or tenderness Extremities: Multiple areas of ecchymosis overlying upper and lower extremities , no peripheral edema or erythema, calfs nontender to palpation Psych: Difficult to determine Neuro: Oriented to place, but not to time or date. (Luli Singh, VENUS) Laboratory Results Last 24 Hours Test 01/31/17 08:08 White Blood Count 6.89 K/uL Red Blood Count 3.83 M/uL Hemoglobin 10.6 g/dL Hematocrit 34.1 % Mean Corpuscular Volume 89.0 fL Mean Corpuscular Hemoglobin 27.7 pg Mean Corpuscular Hemoglobin Concent 31.1 g/dl Platelet Count 175 K/uL Mean Platelet Volume 9.6 fL Neutrophils (%) (Auto) 82.2 % Lymphocytes (%) (Auto) 7.3 % Monocytes (%) (Auto) 10.4 % Eosinophils (%) (Auto) 0.0 % Basophils (%) (Auto) 0.0 % Neutrophils # (Auto) 5.66 K/uL Lymphocytes # (Auto) 0.50 K/uL Monocytes # (Auto) 0.72 K/uL Eosinophils # (Auto) 0.00 K/uL Basophils # (Auto) 0.00 K/uL RDW Standard Deviation 60.2 fL RDW Coefficient of Variation 18.8 % Immature Granulocyte % (Auto) 0.1 % Immature Granulocyte # (Auto) 0.01 K/uL Nucleated RBC Absolute Count (auto) 0.02 K/uL Nucleated Red Blood Cells % 0.3 % Sodium Level 143 mmol/L Potassium Level 4.3 mmol/L Chloride Level 111 mmol/L Carbon Dioxide Level 19 mmol/L Anion Gap 13.0 mmol/L Blood Urea Nitrogen 13 mg/dl Creatinine 0.74 mg/dl Est Creatinine Clear Calc Drug Dose 76.5 ml/min Estimated GFR () 99.9 Estimated GFR (Non- 86.2 BUN/Creatinine Ratio 17.0 Random Glucose 99 mg/dl Calcium Level 8.4 mg/dl (Luli Singh PA-C) Assessment and Plan Pt is a 61 yo female with worsening weakness/dizziness x few weeks NSTEMI - Stopped heparin drip - 2D echo completed, pt could not participate in stress test due to lethargy. ECHO-,EF 25%, mitral regurg is severe,titrate lizeth and coreg, tachycardia maybe from withdrawal or from need for cardiac output. Stress test unable to be obtained due to encephalopathy. - cont daily ASA 81 mg and atorvastatin 40 mg daily - Overnight patient was in Vtach rate as high as 120s, can not determine if she is symptomatic at all with somnolence. HR during day seems improved. - K+ improved to 4.3 with IV replacement yesterday Weakness/dizziness - CIWA Scoring stopped on 01/29, the patient was likely oversedated with medication, at this time Librium taper is completed, Ativan available prn with nursing discretion - B12 and folate are low-normal - PT/OT consulted. Encephalopathy - Despite weaning librium and detox protocols the patient is not awake or alert this morning. She does continue to improve daily slightly with more talking. Her orientation remains the same. Possible that with librium taper ending pt will be more alert tomorrow. - Ammonia level was essentially negative, =13 - Infectious cause ruled out, finishing cipro course for UTI - CT head from admission negative x 2 for acute findings Escherichia coli UTI - Levaquin was transitioned to Cipro 500 mg BID as the culture was pansensitive (day #6), to complete a 7 day course. - Continue miguel with incontinence for now, if patient appears to be waking up more may consider of voiding trial later tomorrow Dyslipidemia - will cont statin Depression/anxiety - cont lexapro 10 mg daily - Difficult to assess GERD - cont omeprazole and Carafate DVT ppx with heparin gtt, teds, scds CODE STATUS: FULL CODE Disposition: would benefit from outpatient etoh counseling/therapy, possible in ~1 2 days (Luli Singh, VENUS) Reviewed: Pt Seen/Exam by Me (Floridalma Nick, ) History See my progress note for details, including exam. (Floridalma Nick, DO) Assessment/Plan Agree with plan as outlined above. (Floridalma Nick, DO)
[2017-02-01 03:05] VITALS: BP 103/65; PULSE 107; TEMP 36.5; O2SAT 97
[2017-02-01] MEDS: SUCRALFATE 1 GM TAB PO SCH ×4 (06:18→20:33)
[2017-02-01] MEDS: ACYCLOVIR 5% OINT 15 GM TUBE EXT SCH ×5 (06:20→19:39)
[2017-02-01 07:01] LABS: BASO % 0.2 %; BASO ABS # 0.01 K/uL (0-0.2); COMPLETE YES; HEMATOCRIT 36.9 % (37-47); IG% 0.3 %; LYMPH % 12.4 %; MEAN CELL VOLUME 89.3 fL (80-100); MEAN CORPUSCULAR HEMOGLOBIN 27.1 pg (25-34); MEAN CORPUSCULAR HGB CONC 30.4 g/dl (32-36); MEAN PLATELET VOLUME 10.6 fL (7.4-10.4); MONO % 9.4 %; NEUT % 77.7 %; PLATELET COUNT 197 K/uL (130-400); RED BLOOD COUNT 4.13 M/uL (4.2-5.4); WHITE BLOOD COUNT 6.46 K/uL (4.8-10.8)
[2017-02-01 07:48] LABS: BUN/CREATININE RATIO 27.2 (10-20); CALCIUM 8.2 mg/dl (8.5-10.1); CREATININE 0.73 mg/dl (0.60-1.20); POTASSIUM 4.2 mmol/L (3.5-5.1)
[2017-02-01 08:06] VITALS: BP 128/85; PULSE 106; TEMP 36.6; O2SAT 97
[2017-02-01] MEDS: LISINOPRIL 5 MG TAB PO SCH (08:22)
[2017-02-01] MEDS: NICOTINE 21 MG/24 HR TDSY TD SCH (08:22)
[2017-02-01] MEDS: CARVEDILOL 6.25 MG TAB PO SCH ×2 (08:23→20:36)
[2017-02-01] MEDS: ESCITALOPRAM OXALATE 10 MG TAB PO SCH (09:00)
[2017-02-01] MEDS: CIPROFLOXACIN 500 MG TAB PO SCH ×2 (09:00→20:35)
[2017-02-01] MEDS: POTASSIUM CHLORIDE 20 MEQ TABCR PO SCH (09:00)
[2017-02-01] MEDS: PANTOprazole SOD 40 MG TAB PO SCH ×2 (09:00→20:36)
[2017-02-01] MEDS: ASPIRIN 81 MG ECTAB PO SCH (09:00)
[2017-02-01] MEDS: ATORVASTATIN 40 MG TAB PO SCH (09:00)
[2017-02-01] MEDS: MULTI-VITAMIN INFUSION INJ 10 ML, FoLIC ACID INJ 1 MG, THIAMINE HCL INJ 100 MG in SODIU... IV SCH (10:01)
--- NOTE | 2017-02-01 10:02 | Hospitalist Progress Note ---
Hospitalist Progress Note Date of Service Feb 01, 2017. (Luli Singh PA-C) Subjective Pt evaluation today including: conversation w/ patient, conversation w/ family , physical exam The patient was seen and examined this morning. Pt's niece, Marisela, is present at bedside. She reports the patient was a life long alcoholic since age 15. She used to go out with friends and since getting older, she no longer goes out due to agoraphobia and social anxiety. She lived in poor conditions in her home, and was embarrassed to have people come to her house. (Luli Singh PA-C) Objective Vital Signs Date Time Temp Pulse Resp B/P (MAP) Pulse Ox O2 Delivery O2 Flow Rate FiO2 02/01/17 09:13 Nasal Cannula 2.0 02/01/17 08:06 36.6 106 16 128/85 (99) 97 Nasal Cannula 2.0 02/01/17 04:00 Nasal Cannula 2.0 02/01/17 03:05 36.5 107 18 103/65 (78) 97 2.0 02/01/17 00:01 Nasal Cannula 2.0 01/31/17 23:15 36.6 100 18 94/62 (73) 98 2.0 01/31/17 20:00 Nasal Cannula 2.0 01/31/17 19:08 37.0 103 22 110/77 (88) 97 Nasal Cannula 2.0 01/31/17 16:00 Nasal Cannula 2.0 01/31/17 15:12 36.5 104 22 144/82 (102) 99 Nasal Cannula 2.0 01/31/17 12:00 Nasal Cannula 2.0 01/31/17 11:31 36.6 101 18 126/86 (99) 97 2.0 (Luli Singh PA-C) Physical Exam Notes: General: does not awaken with verbal stimuli, but keeps her eyes closed during exam, very somnolent Head: Normocephalic, atraumatic ENT: PERRL, EOMI, poor dentition, mucous membranes moist Chest: On room air, lungs clear, no adventitious breath sounds Cardiac: Regular rate and rhythm with some PVCs, no murmur, no JVD, normal peripheral pulses, good capillary refill Abdominal: NABS x 4 quadrants, soft, nontender to palpation, no rebound, guarding or tenderness Extremities: Multiple areas of ecchymosis overlying upper and lower extremities , +1 peripheral edema in upper and lower extremities, nonpitting or erythema, calfs nontender to palpation Psych: Difficult to determine Neuro: Oriented to place, but not to time or date. (Luli Singh PA-C) Laboratory Results Last 24 Hours Test 02/01/17 06:28 White Blood Count 6.46 K/uL Red Blood Count 4.13 M/uL Hemoglobin 11.2 g/dL Hematocrit 36.9 % Mean Corpuscular Volume 89.3 fL Mean Corpuscular Hemoglobin 27.1 pg Mean Corpuscular Hemoglobin Concent 30.4 g/dl Platelet Count 197 K/uL Mean Platelet Volume 10.6 fL Neutrophils (%) (Auto) 77.7 % Lymphocytes (%) (Auto) 12.4 % Monocytes (%) (Auto) 9.4 % Eosinophils (%) (Auto) 0.0 % Basophils (%) (Auto) 0.2 % Neutrophils # (Auto) 5.02 K/uL Lymphocytes # (Auto) 0.80 K/uL Monocytes # (Auto) 0.61 K/uL Eosinophils # (Auto) 0.00 K/uL Basophils # (Auto) 0.01 K/uL RDW Standard Deviation 60.3 fL RDW Coefficient of Variation 18.6 % Immature Granulocyte % (Auto) 0.3 % Immature Granulocyte # (Auto) 0.02 K/uL Nucleated RBC Absolute Count (auto) 0.05 K/uL Nucleated Red Blood Cells % 0.8 % Sodium Level 148 mmol/L Potassium Level 4.2 mmol/L Chloride Level 113 mmol/L Carbon Dioxide Level 19 mmol/L Anion Gap 16.0 mmol/L Blood Urea Nitrogen 20 mg/dl Creatinine 0.73 mg/dl Est Creatinine Clear Calc Drug Dose 77.6 ml/min Estimated GFR () 101.6 Estimated GFR (Non- 87.7 BUN/Creatinine Ratio 27.2 Random Glucose 86 mg/dl Calcium Level 8.2 mg/dl (Luli Singh PA-C) Assessment and Plan Pt is a 61 yo female with worsening weakness/dizziness x few weeks NSTEMI - Stopped heparin drip - 2D echo completed, pt could not participate in stress test due to lethargy. ECHO: EF 25%, mitral regurg is severe,titrate lizeth and coreg, tachycardia maybe from withdrawal or from need for cardiac output. Stress test unable to be obtained due to encephalopathy. - cont daily ASA 81 mg and atorvastatin 40 mg daily - HR improved with getting morning meds including lisinopril and metoprolol - meds needing crushed, sitting up HOB when administering meds with jello/ applesauce, caution for any chance of aspiration. - K+ improved Weakness/dizziness - CIWA Scoring stopped on 01/29, the patient was likely oversedated with medication, at this time Librium taper is completed, Ativan available prn with nursing discretion - B12 and folate are low-normal - PT/OT consulted. Encephalopathy - Despite weaning librium and detox protocols the patient is not awake or alert again today. Her orientation remains the same. Possible that with librium taper ending pt will be more alert today, I question if she has been missing any psychiatric medication and is actually in withdrawal from this? will contact her pharmacy today. - Ammonia level was essentially negative, =13 - Infectious cause ruled out, finishing cipro course for UTI today - CT head from admission negative x 2 for acute findings, will consider an MRI but I don't know if the patient would be able to stay still. - Nutritional status has been poor throughout admission, will likely need to place an NGT if pt does not awaken this morning, albumin is low at 2.7 and she appears to be swelling and having peripheral edema. Escherichia coli UTI - Levaquin was transitioned to Cipro 500 mg BID as the culture was pansensitive (day #7), to complete a 7 day course today - Continue miguel with incontinence for now, if patient appears to be waking up more may consider of voiding trial later tomorrow Dyslipidemia - will cont statin Depression/anxiety - cont lexapro 10 mg daily - Difficult to assess GERD - cont omeprazole and Carafate DVT ppx with heparin gtt, teds, scds CODE STATUS: FULL CODE Disposition: would benefit from outpatient etoh counseling/therapy, unknown discharge date, will transfer out of [facility] today. (Luli Singh, VENUS) Reviewed: Pt Seen/Exam by Me (Floridalma Nick, ) History Pt did take a few bites today per nursing, but not much interaction otherwise. No complaints of pain. Moves spontaneously and apparently answering some questions for them. and friend of family in this evening to see pt. informs me she takes no other meds at home other than celexa. States she was very high functioning and hid her drinking. Ongoing mental decline and had seen neuro as outpt, MRI done at 611. He states she saw Dr. Rooney. He also states that he gave the MRI report on admission. No emesis, diarrhea per nursing. Agree with HPI/ROS as noted. (Floridalma Nick, DO) General Appearance: WD/WN, no apparent distress Respiratory: normal breath sounds, no respiratory distress Cardiovascular: normal peripheral pulses, regular rate, rhythm Gastrointestinal: non tender, soft Extremities: non-tender, no pedal edema Neurologic/Psychiatric: alert (opens eyes to name), other (moving LE and upper extremities spontaneously and evenly) Skin Characteristics: normal color, warm/dry (Floridalma Nick, ) Assessment/Plan Agree with plan as outlined above Ongoing neuro status issues Last librium 01/30 Last ativan 01/29 B1 levels low normal in August, will recheck ?? Wernicke's?? Will start thiamine replacement and monitor neuro status May need to start NGT if no increase in PO intake Will need stress test once mentation issues are more stable (Floridalma Nick, DO)
[2017-02-01 11:19] VITALS: BP 110/77; PULSE 102; TEMP 37.2; O2SAT 96
[2017-02-01 15:49] VITALS: BP 115/75; PULSE 109; TEMP 36.3; O2SAT 98
[2017-02-01] MEDS: THIAMINE HCL INJ 250 MG in SODIUM CHLORIDE 0.9% 50ML 50 ML IV SCH (20:31)
[2017-02-01 23:04] VITALS: BP 136/87; PULSE 125; TEMP 36.8; O2SAT 96
[2017-02-02] MEDS: THIAMINE HCL INJ 250 MG in SODIUM CHLORIDE 0.9% 50ML 50 ML IV SCH ×3 (05:10→19:40)
[2017-02-02] MEDS: SUCRALFATE 1 GM TAB PO SCH ×4 (05:33→20:36)
[2017-02-02 05:42] LABS: BASO % 0.3 %; BASO ABS # 0.02 K/uL (0-0.2); COMPLETE YES; EOS % 1.3 %; IG% 0.5 %; LYMPH % 17.2 %; LYMPH ABS # 1.08 K/uL (1.2-3.4); MEAN CELL VOLUME 88.2 fL (80-100); MEAN CORPUSCULAR HEMOGLOBIN 27.8 pg (25-34); MEAN CORPUSCULAR HGB CONC 31.6 g/dl (32-36); MEAN PLATELET VOLUME 10.2 fL (7.4-10.4); MONO % 11.8 %; NEUT % 68.9 %; PLATELET COUNT 126 K/uL (130-400); RED BLOOD COUNT 4.31 M/uL (4.2-5.4); WHITE BLOOD COUNT 6.29 K/uL (4.8-10.8)
[2017-02-02] MEDS: ACYCLOVIR 5% OINT 15 GM TUBE EXT SCH ×5 (06:03→19:38)
[2017-02-02 06:11] LABS: CALCIUM 7.6 mg/dl (8.5-10.1); CREATININE 0.76 mg/dl (0.60-1.20); POTASSIUM 3.8 mmol/L (3.5-5.1)
[2017-02-02 06:42] VITALS: BP 132/92; PULSE 105; TEMP 36.5; O2SAT 96
[2017-02-02 08:00] VITALS: O2SAT 96
[2017-02-02] MEDS: ATORVASTATIN 40 MG TAB PO SCH (09:00)
[2017-02-02] MEDS: POTASSIUM CHLORIDE 20 MEQ TABCR PO SCH (09:00)
[2017-02-02] MEDS: PANTOprazole SOD 40 MG TAB PO SCH ×2 (09:00→20:36)
[2017-02-02] MEDS: CIPROFLOXACIN / D5W 400 MG in PREMIXED IN D5W 200 ML IV SCH ×2 (11:51→20:33)
--- NOTE | 2017-02-02 12:03 | Hospitalist Progress Note ---
Hospitalist Progress Note Date of Service Feb 02, 2017. (Luli Singh PA-C) Subjective Pt evaluation today including: physical exam, chart review, lab review, review of studies, conversation w/ wellness consultant Voiding: miguel catheter in place The patient was seen and examined this morning. Pt is somnolent, squirming in bed and unable to speak or follow commands. Nursing states they administered antihypertensive med which were crushed in applesauce this morning, and that it took talking very loudly and redirecting until the patient swallowed this. They have been spoon feeding her water which she seems to swallow without difficulty. They deny that she's coughing during this, and that she's kept sitting upright for a while after adminstering the meds. ROS not obtainable due to altered mental status. (Luli Singh PA-C) Objective Vital Signs Date Time Temp Pulse Resp B/P (MAP) Pulse Ox O2 Delivery O2 Flow Rate FiO2 02/02/17 06:42 36.5 105 22 132/92 (105) 96 Nasal Cannula 2.0 02/02/17 00:00 Nasal Cannula 2.0 02/01/17 23:04 36.8 125 20 136/87 (103) 96 Nasal Cannula 2.0 02/01/17 16:30 Nasal Cannula 2.0 02/01/17 15:49 36.3 109 18 115/75 (88) 98 Room Air (Luli Singh PA-C) Physical Exam Notes: General: does not awaken to verbal stimuli, arouses with shining light in her eyes, keeps her eyes closed during exam otherwise, squirming slightly in bed, appears somnolent Head: Normocephalic, atraumatic ENT: PERRL, EOMI, poor dentition, mucous membranes moist Chest: On 2 L via NC, +faint crackles at bases likely atelectasis, no wheezing or rales. Cardiac: Regular rate and rhythm, no murmur, no JVD, normal peripheral pulses, good capillary refill Abdominal: NABS x 4 quadrants, soft, nontender to palpation, no rebound, guarding or tenderness Extremities: Multiple areas of ecchymosis overlying upper and lower extremities , no peripheral edema or erythema, calfs nontender to palpation : miguel catheter in place with dark yellow urine, clear Psych: Difficult to determine Neuro: Difficult to awaken, orientation cannot be assessed. Does not follow commands. (Luli Singh PA-C) Laboratory Results Last 24 Hours Test 02/01/17 17:56 02/02/17 04:55 White Blood Count 6.29 K/uL Red Blood Count 4.31 M/uL Hemoglobin 12.0 g/dL Hematocrit 38.0 % Mean Corpuscular Volume 88.2 fL Mean Corpuscular Hemoglobin 27.8 pg Mean Corpuscular Hemoglobin Concent 31.6 g/dl Platelet Count 126 K/uL Mean Platelet Volume 10.2 fL Neutrophils (%) (Auto) 68.9 % Lymphocytes (%) (Auto) 17.2 % Monocytes (%) (Auto) 11.8 % Eosinophils (%) (Auto) 1.3 % Basophils (%) (Auto) 0.3 % Neutrophils # (Auto) 4.34 K/uL Lymphocytes # (Auto) 1.08 K/uL Monocytes # (Auto) 0.74 K/uL Eosinophils # (Auto) 0.08 K/uL Basophils # (Auto) 0.02 K/uL RDW Standard Deviation 60.1 fL RDW Coefficient of Variation 18.9 % Immature Granulocyte % (Auto) 0.5 % Immature Granulocyte # (Auto) 0.03 K/uL Nucleated RBC Absolute Count (auto) 0.10 K/uL Nucleated Red Blood Cells % 1.5 % Sodium Level 149 mmol/L Potassium Level 3.8 mmol/L Chloride Level 115 mmol/L Carbon Dioxide Level 23 mmol/L Anion Gap 11.0 mmol/L Blood Urea Nitrogen 24 mg/dl Creatinine 0.76 mg/dl Est Creatinine Clear Calc Drug Dose 74.5 ml/min Estimated GFR () 96.8 Estimated GFR (Non- 83.5 BUN/Creatinine Ratio 31.0 Random Glucose 128 mg/dl Calcium Level 7.6 mg/dl (Luli Singh PA-C) Assessment and Plan Pt is a 61 yo female with worsening weakness/dizziness x few weeks NSTEMI - Stopped heparin drip - 2D echo completed, pt could not participate in stress test due to lethargy. ECHO: EF 25%, mitral regurg is severe,titrate lizeth and coreg, tachycardia maybe from withdrawal or from need for cardiac output. Stress test unable to be obtained due to encephalopathy. - cont daily ASA 81 mg and atorvastatin 40 mg daily - HR improved with getting morning meds including lisinopril and metoprolol - meds needing crushed, sitting up HOB when administering meds with applesauce, caution for any chance of aspiration. - K+ improved Weakness/dizziness - CIWA Scoring stopped on 01/29, the patient was likely oversedated with medication, at this time Librium taper is completed, Ativan available prn with nursing discretion - B12 and folate are low-normal - PT/OT consulted. Encephalopathy - Despite weaning librium and detox protocols the patient is not awake or alert again today. Her orientation remains the same. Possible that with librium taper ending pt will be more alert today, pt is not on any other psych meds and does not appear to be in withdrawal at this time from medications. - Ammonia level was essentially negative, =13 - Infectious? Will order another UA and uCx now. Switch to IV cipro this morning and continue for for at least 4 more days. - CT head from admission negative x 2 for acute findings, will consider an MRI but I don't know if the patient would be able to stay still. - Nutritional status has been poor throughout admission,- nutrition consulted, may need to place an NGT if pt does not awaken soon, and if placed, pt may pull it out so would need continued bedside sitter/1:1. Albumin is low at 2.7 and she appears to be third spacing Escherichia coli UTI - Levaquin was transitioned to Cipro 500 mg BID as the culture was pansensitive : Pt was supposed to be getting Cipro PO but has not been administered by nursing due to aspiration risk and large pill size, she had gotten 3 days worth , last date on antibiotic was on 6/5 PM dose. will order another UA and uCx now. Switch to IV cipro this morning and continue for for at least 4 more days. - Continue miguel with incontinence for now, if patient appears to be waking up more may consider of voiding trial later tomorrow Dyslipidemia - will cont statin Depression/anxiety - cont lexapro 10 mg daily - Difficult to assess GERD - cont omeprazole and Carafate DVT ppx with heparin gtt, teds, scds CODE STATUS: FULL CODE Disposition: would benefit from outpatient etoh counseling/therapy, unknown discharge date (Luli Singh PA-C) Reviewed: Pt Seen/Exam by Me (Floridalma Nick, DO) History Pt has been taking better PO today with assistance. Takes some meds. Apparently not notified that pt had not been taking cipro. No concerns about pain or breathing issues from nursing. Pt will open eyes to name or addressing. Answers some yes/no questions with repeated questioning. Agree with HPI/ROS as noted. (Floridalma Nick, DO) General Appearance: WD/WN, no apparent distress Respiratory: normal breath sounds, no respiratory distress Cardiovascular: normal peripheral pulses, regular rate, rhythm Gastrointestinal: non tender, soft Extremities: non-tender, no pedal edema Neurologic/Psychiatric: other (alerts to voice, some yes/no answers, opens eyes , moving all extremities) Skin Characteristics: normal color, warm/dry (Floridalma Nick, ) Assessment/Plan Agree with plan as outlined above Ongoing neuro status issues Last librium 01/30 Last ativan 01/29 B1 levels low normal in August, will recheck ?? Wernicke's?? Thiamine replacement started 02/01 and monitor neuro status VSS, afebrile, does not appear in pain Possible CVA during acute episode? Pt will not lie still for imaging per nursing May need to start NGT if no increase in PO intake, however some improvement today with much assistance Will need stress test once mentation issues are more stable (Floridalma Nick, DO)
[2017-02-02] MEDS: MULTI-VITAMIN INFUSION INJ 10 ML, FoLIC ACID INJ 1 MG, THIAMINE HCL INJ 100 MG in SODIU... IV SCH (13:37)
[2017-02-02] MEDS: ESCITALOPRAM OXALATE 10 MG TAB PO SCH (13:38)
[2017-02-02] MEDS: ASPIRIN 81 MG ECTAB PO SCH (13:38)
[2017-02-02] MEDS: CARVEDILOL 6.25 MG TAB PO SCH ×2 (13:38→20:37)
[2017-02-02] MEDS: LISINOPRIL 5 MG TAB PO SCH (13:39)
[2017-02-02] MEDS: NICOTINE 21 MG/24 HR TDSY TD SCH (13:39)
[2017-02-02 15:23] VITALS: BP 101/73; PULSE 80; TEMP 36.4; O2SAT 99
[2017-02-02 16:08] LABS: URINE APPEARANCE CLEAR (CLEAR); URINE COLOR DK YELLOW; URINE EPITHELIAL CELL AUTO >30 /lpf (0-5); URINE NITRITE NEG (NEG); URINE PH 5.5 (4.5-7.5); URINE SPECIFIC GRAVITY 1.027 (1.000-1.030); UROBILINOGEN NEG (NEG); ZZURINE CULT IF INDIC CATH NO
[2017-02-02 16:11] LABS: MANUAL MICROSCOPIC REQUIRED? NO; REVIEW REQ? NO; URINE BILIRUBIN 1+ (NEG)
[2017-02-02 23:51] VITALS: BP 110/74; PULSE 74; TEMP 36.8; O2SAT 97
[2017-02-03] VITALS (7 sets, daily range): BP systolic 108–123; BP diastolic 78–89; PULSE 75–96; TEMP 36.4–36.8; O2SAT 81–100
[2017-02-03] MEDS: THIAMINE HCL INJ 250 MG in SODIUM CHLORIDE 0.9% 50ML 50 ML IV SCH ×3 (03:37→19:29)
[2017-02-03] MEDS: SUCRALFATE 1 GM TAB PO SCH ×4 (06:21→20:51)
[2017-02-03] MEDS: ACYCLOVIR 5% OINT 15 GM TUBE EXT SCH ×5 (06:21→18:47)
[2017-02-03 08:34] LABS: CREATININE 0.65 mg/dl (0.60-1.20); POTASSIUM 3.7 mmol/L (3.5-5.1)
[2017-02-03] MEDS: ASPIRIN 81 MG ECTAB PO SCH (08:39)
[2017-02-03] MEDS: CARVEDILOL 6.25 MG TAB PO SCH ×2 (08:39→20:49)
[2017-02-03] MEDS: POTASSIUM CHLORIDE 20 MEQ TABCR PO SCH (08:40)
[2017-02-03] MEDS: PANTOprazole SOD 40 MG TAB PO SCH ×2 (08:40→20:49)
[2017-02-03] MEDS: ESCITALOPRAM OXALATE 10 MG TAB PO SCH ×2 (08:40→11:54)
[2017-02-03] MEDS: NICOTINE 21 MG/24 HR TDSY TD SCH (08:40)
[2017-02-03] MEDS: ATORVASTATIN 40 MG TAB PO SCH (08:40)
[2017-02-03] MEDS: LISINOPRIL 5 MG TAB PO SCH (08:40)
[2017-02-03] MEDS: MULTI-VITAMIN INFUSION INJ 10 ML, FoLIC ACID INJ 1 MG, THIAMINE HCL INJ 100 MG in SODIU... IV SCH (08:49)
[2017-02-03] MEDS: CIPROFLOXACIN / D5W 400 MG in PREMIXED IN D5W 200 ML IV SCH ×2 (08:52→21:03)
[2017-02-03 08:53] LABS: HEMATOCRIT 34.2 % (37-47); MEAN CELL VOLUME 88.6 fL (80-100); MEAN CORPUSCULAR HEMOGLOBIN 27.7 pg (25-34); MEAN CORPUSCULAR HGB CONC 31.3 g/dl (32-36); MEAN PLATELET VOLUME 10.5 fL (7.4-10.4); PLATELET COUNT 94 K/uL (130-400); RED BLOOD COUNT 3.86 M/uL (4.2-5.4); WHITE BLOOD COUNT 5.72 K/uL (4.8-10.8)
[2017-02-03 08:59] LABS: ACANTHOCYTES 1+; BASO % 0.2 %; BASO ABS # 0.01 K/uL (0-0.2); COMPLETE YES; ECHINOCYTES 2+; EOS % 0.5 %; IG% 0.3 %; LYMPH % 12.8 %; LYMPH ABS # 0.73 K/uL (1.2-3.4); MONO % 9.4 %; NEUT % 76.8 %; PLT ESTIMATE DECREASED
[2017-02-03 09:03] LABS: SMUDGE CELLS PRESENT
[2017-02-03 09:08] LABS: CALCIUM 8.3 mg/dl (8.5-10.1)
--- NOTE | 2017-02-03 13:09 | DIAGNOSTIC IMAGING REPORT ---
CHEST ONE VIEW PORTABLE CLINICAL HISTORY: Assess crackles and diminished breath sounds at bases. COMPARISON STUDY: Chest radiograph January 29, 2017. FINDINGS: Moderate cardiomegaly is unchanged. There is no pneumothorax. There are small bilateral pleural effusions. Diffuse interstitial thickening with multifocal airspace opacities has progressed since exam of January 29, 2017. IMPRESSION: 1. Progression of diffuse interstitial thickening and bilateral opacities which could reflect pulmonary edema or multifocal pneumonia. 2. Small bilateral pleural effusions. Electronically signed by: Adan Posada M.D. 02/03/2017 1:08 PM Dictated Date/Time: 02/03/2017 1:07 PM
[2017-02-03] MEDS: BOOST VANILLA PUDDING CUP PO SCH ×2 (13:22→20:48)
--- NOTE | 2017-02-03 13:46 | Hospitalist Progress Note ---
Hospitalist Progress Note Date of Service Feb 03, 2017. (Luli Singh PA-C) Subjective Pt evaluation today including: conversation w/ patient, physical exam, chart review, lab review, review of studies The patient was seen and examined this morning. Patient is again somnolent and very difficult to arouse. Bedside sitter is present and tells me she was able to get her to eat one half a cup of pudding which took longer than a half an hour. The pt was able to take 1 small bite of mashed potatoes with significant encouragement, rubbing her neck, lips with spoon, etc, to get her to swallow it while I was there. Nursing has been able to get her to take antihypertensives which are crushed in pudding. ROS: unobtainable due to mental status (Luli Singh, VENUS) Objective Vital Signs Date Time Temp Pulse Resp B/P (MAP) Pulse Ox O2 Delivery O2 Flow Rate FiO2 02/03/17 11:55 75 114/83 (93) 100 Nasal Cannula 2.0 02/03/17 08:00 Nasal Cannula 2.0 02/03/17 07:16 36.6 87 20 123/89 (100) 97 02/03/17 00:00 Nasal Cannula 2.0 02/02/17 23:51 36.8 74 16 110/74 (86) 97 2.0 02/02/17 16:00 Nasal Cannula 2.0 02/02/17 15:23 36.4 80 18 101/73 (82) 99 2.0 (Luli Singh PA-C) Physical Exam Notes: Notes: General: does not awaken with verbal stimuli or sternal rub, opens her eyes several times during exam, very somnolent Head: Normocephalic, atraumatic ENT: PERRL, EOMI, poor dentition, mucous membranes moist, swallow function intact Chest: On room air, +faint crackles at bases bilaterally, no adventitious breath sounds Cardiac: Regular rate and rhythm with some PVCs, no murmur, no JVD, normal peripheral pulses, good capillary refill Abdominal: NABS x 4 quadrants, soft, nontender to palpation, no rebound, guarding or tenderness Extremities: Multiple areas of ecchymosis overlying upper and lower extremities improving, mild peripheral edema in lower extremities, nonpitting or erythema, calfs nontender to palpation Psych: Difficult to determine Neuro: Corneal reflex intact, when arm was lifted and allowed to drop onto bed the patient did not react, slightly moves legs and arms in bed which are non- ataxic, not oriented to date and time. (Luli Singh PA-C) Laboratory Results Last 24 Hours Test 02/02/17 15:50 02/03/17 07:53 Urine Color DK YELLOW Urine Appearance CLEAR Urine pH 5.5 Urine Specific [place] 1.027 Urine Protein 1+ Urine Glucose (UA) NEG Urine Ketones NEG Urine Occult Blood 1+ Urine Nitrite NEG Urine Bilirubin 1+ Urine Urobilinogen NEG Urine Leukocyte Esterase SMALL Urine WBC (Auto) 1-5 /hpf Urine RBC (Auto) 10-30 /hpf Urine Hyaline Casts (Auto) 10-30 /lpf Urine Epithelial Cells (Auto) >30 /lpf Urine Bacteria (Auto) NEG White Blood Count 5.72 K/uL Red Blood Count 3.86 M/uL Hemoglobin 10.7 g/dL Hematocrit 34.2 % Mean Corpuscular Volume 88.6 fL Mean Corpuscular Hemoglobin 27.7 pg Mean Corpuscular Hemoglobin Concent 31.3 g/dl Platelet Count 94 K/uL Mean Platelet Volume 10.5 fL Neutrophils (%) (Auto) 76.8 % Lymphocytes (%) (Auto) 12.8 % Monocytes (%) (Auto) 9.4 % Eosinophils (%) (Auto) 0.5 % Basophils (%) (Auto) 0.2 % Neutrophils # (Auto) 4.39 K/uL Lymphocytes # (Auto) 0.73 K/uL Monocytes # (Auto) 0.54 K/uL Eosinophils # (Auto) 0.03 K/uL Basophils # (Auto) 0.01 K/uL RDW Standard Deviation 62.1 fL RDW Coefficient of Variation 19.5 % Immature Granulocyte % (Auto) 0.3 % Immature Granulocyte # (Auto) 0.02 K/uL Nucleated RBC Absolute Count (auto) 0.04 K/uL Nucleated Red Blood Cells % 0.8 % Smudge Cells PRESENT Platelet Estimate DECREASED Echinocytes 2+ Acanthocytes 1+ Sodium Level 148 mmol/L Potassium Level 3.7 mmol/L Chloride Level 115 mmol/L Carbon Dioxide Level 22 mmol/L Anion Gap 11.0 mmol/L Blood Urea Nitrogen 20 mg/dl Creatinine 0.65 mg/dl Est Creatinine Clear Calc Drug Dose 87.1 ml/min Estimated GFR () 109.5 Estimated GFR (Non- 94.5 BUN/Creatinine Ratio 30.0 Random Glucose 137 mg/dl Calcium Level 8.3 mg/dl (Luli Singh, VENUS) Assessment and Plan Pt is a 61 yo female with worsening weakness/dizziness x few weeks Encephalopathy ?Wernickes encephalopathy? - Despite weaning librium and detox protocols the patient remains lethargic. Her orientation remains the same. Librium taper off x 2 days, pt is not on any other psych meds and does not appear to be in withdrawal at this time from medications. - CIWA Scoring stopped on 01/29, the patient was likely oversedated with medication - B12 and folate are low-normal - cont thiamine replacement daily - PT/OT consulted. - Ammonia level was essentially negative, =13 - Infectious? Will order another UA and uCx now. Cont IV cipro x2 more days, see below. - CT head from admission negative x 2 for acute findings, will consider an MRI but I don't know if the patient would be able to stay still. - Nutritional status has been poor throughout admission- nutrition recs appreciated - pt is swallowing small amounts of pudding and pureed foods now, hopeful that this continues to improve. Will add boost pudding TID. Diminished breath sounds - likely diminished due to atelectasis. NSTEMI - Stopped heparin drip - 2D echo completed, pt could not participate in stress test due to lethargy. ECHO: EF 25%, mitral regurg is severe,titrate lizeth and coreg, tachycardia maybe from withdrawal or from need for cardiac output. Stress test unable to be obtained due to encephalopathy. - cont daily ASA 81 mg and atorvastatin 40 mg daily - HR improved with getting morning meds including lisinopril and metoprolol - meds needing crushed, sitting up HOB when administering meds with applesauce, caution for any chance of aspiration. - K+ improved Escherichia coli UTI - Levaquin was transitioned to Cipro 500 mg BID as the culture was pansensitive : Pt was supposed to be getting Cipro PO but has not been administered by nursing due to aspiration risk and large pill size, she had gotten 3 days worth , last date on antibiotic was on 6/5 PM dose. will order another UA and uCx now. - Cont IV cipro (day 2) x total of 4 days. - Continue miguel Dyslipidemia - will cont statin Depression/anxiety - cont lexapro 10 mg daily - Difficult to assess GERD - cont omeprazole and Carafate DVT ppx with lovenox, teds, scds CODE STATUS: FULL CODE Disposition: would benefit from outpatient etoh counseling/therapy, unknown discharge date (Luli Singh PA-C) Reviewed: Pt Seen/Exam by Me (Floridalma Nick, DO) History Pt still with PO intake, pudding, mashed potatoes, liquids. Needs assistance, but does swallow without coughing/choking per nursing. No SOB. No diarrhea. No s/sx of pain. Still opens eyes to verbal stimulus. Agree with HPI/ROS as noted. (Floridalma Nick, DO) General Appearance: WD/WN, no apparent distress Respiratory: normal breath sounds, no respiratory distress Cardiovascular: normal peripheral pulses, regular rate, rhythm Gastrointestinal: non tender, soft Extremities: non-tender, no pedal edema Neurologic/Psychiatric: alert (opens eyes to name), other (neg facial droop, raising legs to height of bed rails today, moving arms and head.) Skin Characteristics: normal color, warm/dry (Floridalma Nick, DO) Assessment/Plan Agree with plan as outlined above Ongoing neuro status issues, initially thought to have been related to CWAS scores requiring large amounts of ativan, however not clearing s/p d/c of these meds Last librium 01/30 Last ativan 01/29 B1 levels low normal in August, recheck pending ?? Wernicke's?? Thiamine replacement started 6/7 PM and monitor neuro status VSS, afebrile, does not appear in pain Possible CVA during acute episode? Pt will not lie still for imaging per nursing and seems less likely given CT head neg x2 and moving all extremities CAD: mildly elevated trop and neg for EKG changes Plan for stress when able May need to start NGT if no increase in PO intake, however has been taking PO pureed with much assistance. No concerns for aspiration. Pt did miss some dosing of cipro for UTI, changed to IV tomorrow. Still afebrile with no signs of sepsis Repeat UA improved CXR with fluid overload vs PNA, will continue with cipro dosing given no s/sx of infection. Give lasix 10mg IV x1 Possible that this is irreversible alcohol damage. Discussed at length with . He is currently investigating SNF options (Floridalma Nick DO)
[2017-02-03] MEDS ORDERED: FUROSEMIDE INJ 10 MG in SYRINGE 0 ML IV ONE (18:30)
[2017-02-04] MEDS: THIAMINE HCL INJ 250 MG in SODIUM CHLORIDE 0.9% 50ML 50 ML IV SCH ×3 (03:39→19:46)
[2017-02-04] MEDS: SUCRALFATE 1 GM TAB PO SCH ×4 (05:50→20:35)
[2017-02-04] MEDS: ACYCLOVIR 5% OINT 15 GM TUBE EXT SCH ×5 (05:52→18:53)
[2017-02-04 07:00] LABS: BUN/CREATININE RATIO 26.9 (10-20); CALCIUM 7.9 mg/dl (8.5-10.1); CREATININE 0.72 mg/dl (0.60-1.20); POTASSIUM 3.9 mmol/L (3.5-5.1)
[2017-02-04 07:05] VITALS: BP 139/86; PULSE 86; TEMP 36.9; O2SAT 97
[2017-02-04 07:51] LABS: HEMATOCRIT 35.2 % (37-47); MEAN CELL VOLUME 88.9 fL (80-100); MEAN CORPUSCULAR HEMOGLOBIN 27.5 pg (25-34); RED BLOOD COUNT 3.96 M/uL (4.2-5.4); WHITE BLOOD COUNT 6.73 K/uL (4.8-10.8)
[2017-02-04] MEDS: CIPROFLOXACIN / D5W 400 MG in PREMIXED IN D5W 200 ML IV SCH ×2 (08:19→20:35)
[2017-02-04] MEDS: ENOXAPARIN 40 MG/0.4 ML SYR SQ SCH (08:21)
[2017-02-04] MEDS: NICOTINE 21 MG/24 HR TDSY TD SCH (08:22)
[2017-02-04 08:33] LABS: BASO % 0.1 %; BASO ABS # 0.01 K/uL (0-0.2); COMPLETE YES; ECHINOCYTES 1+; IG% 0.3 %; LYMPH % 10.4 %; MONO % 11.4 %; NEUT % 77.8 %; PLATELET COUNT 79 K/uL (130-400); PLT ESTIMATE DECREASED
[2017-02-04] MEDS: LISINOPRIL 5 MG TAB PO SCH (09:00)
[2017-02-04] MEDS: POTASSIUM CHLORIDE 20 MEQ TABCR PO SCH (09:00)
[2017-02-04] MEDS: CARVEDILOL 6.25 MG TAB PO SCH ×2 (09:00→20:35)
[2017-02-04] MEDS: PANTOprazole SOD 40 MG TAB PO SCH ×2 (09:00→20:35)
[2017-02-04] MEDS: ESCITALOPRAM OXALATE 10 MG TAB PO SCH (09:00)
[2017-02-04] MEDS: ATORVASTATIN 40 MG TAB PO SCH (09:00)
[2017-02-04] MEDS: BOOST VANILLA PUDDING CUP PO SCH ×3 (09:00→20:35)
[2017-02-04] MEDS: ASPIRIN 81 MG ECTAB PO SCH (09:00)
[2017-02-04] MEDS: MULTI-VITAMIN INFUSION INJ 10 ML, FoLIC ACID INJ 1 MG, THIAMINE HCL INJ 100 MG in SODIU... IV SCH (09:37)
--- NOTE | 2017-02-04 12:59 | Neurology Consultation ---
Neurology Consultation Date of Consultation: Feb 04, 2017. Attending Physician: Floridalma Nick DO Primary Care Physician: Zachary Fulton, Mor[facility].Int.Med. Reason for Consultation: Consultation for altered mental status/obtunded History of Present Illness Source: patient, hospital records This is a 61-year-old female who initially presented to the hospital on the first for worsening weakness, fatigue, and confusion. Patient has been getting a workup as an outpatient by Dr. Rooney, also unfortunately due to system upgrade today am not able to access the outpatient chart. Has been reports that she's had a slow decline over the last year but appears to have been more rapid in the last 3 months. Because of decreased functioning and increased confusion he convinced her to go to the hospital earlier this month. He reports that the family did find out that she was drinking a lot more than they thought she had been. Her she may been drinking a fifth of alcohol daily. Patient was treated for a UTI on admission and for an NSTEMI. Due to alcohol withdrawal she was getting Ativan per alcohol withdrawal protocol. Her last dose of Ativan was on the fourth and her last dose of Librium was on the fifth. Her UA did grow Escherichia coli on the first and she has a pending UA from the ninth. Patient was placed on thiamine on the seventh due to history of alcoholism concern for an acute encephalopathy. CT of the head report and images reviewed by myself and noted to have subcortical white matter changes. Repeat CT of the head several days later was unchanged. Outpatient workup that it been done through the hospital was reviewed. The patient did receive a lumbar puncture december due to the same progressive decline. Cell count was normal. MS panel was negative. Cytology was negative. A Lyme was negative. Outpatient labs from December were reviewed and essentially unremarkable. These included [employer] SSA/SSB, Iverson antibody, [employer], scleroderma, double-stranded DNA, gliadin antibodies, C3 and C4, rheumatoid factor, Dharmesh, hep B and hep C were negative. ESR was normal. RPR negative. Thiamine August 2016 was within normal range of 86. Labs this admission were reviewed. Included a hemoglobin A1c of 6.5. Liver function test on the fifth were significantly elevated. AST was 1448, ALT 609, alkaline phosphatase 118. Ammonia on the fourth was 13. B12 level was within normal limits of 518. Folate was within normal limits of 8.12. TSH within normal limits. Thiamine level is pending. Tox screen was negative. Hep C was negative. Nursing reports that this morning they could not arouse the patient, but now seems to be better. Family reports that she seems to be opening her eyes and moving her extremities more than she was previous days. reports that she was awake and talking when she arrived at the hospital but since getting Ativan and Librium she has been fairly unresponsive. Even so these medications were stopped on the fourth and fifth respectively, still has not woken up. Nursing denies that there is been any acute change this morning but continues to be unresponsive with fluctuations in mental status. Nursing reports that patient has been afebrile. No activity concerning for seizures. Past Medical/Surgical History Medical Problems: (1) Acute electrocardiogram changes Status: Acute (2) Dizziness Status: Acute (3) Elevated troponin Status: Acute (4) Hypokalemia Status: Acute (5) Hypomagnesemia Status: Acute (6) Weakness Status: Acute Past medical history significant for dyslipidemia, depression/anxiety, hypertension, GERD, and alcoholism Family History Family history of cancer and hypertension Social History Patient lives with her . Up until your ago was reportedly independent in her activities of daily living but has had a steady decline over the last year. Former tobacco use. Positive alcoholism with estimated drinking up to a fifth of liquor per day. Smokeless Tobacco Use: No Alcohol Use: occasionally Drug Use: none Marital Status: Housing Status: lives with family Occupation Status: employed Allergies Coded Allergies: No Known Allergies (Verified , 01/05/17) Current Inpatient Medications Current Inpatient Medications Medications (Trade) Dose Ordered Sig/Debbie Route Start Time Stop Time Status Last Admin Dose Admin Acetaminophen (Tylenol Tab) 650 mg Q4H PRN PO 01/26/17 14:30 02/25/17 14:29 Al Hydrox/Mg Hydrox/Simethicone (Maalox Max Susp) 15 ml Q4H PRN PO 01/26/17 14:30 02/25/17 14:29 Ondansetron HCl (Zofran Inj) 4 mg Q6H PRN IV 01/26/17 14:30 02/25/17 14:29 Aspirin (Ecotrin Tab) 81 mg QAM PO 01/27/17 09:00 02/26/17 08:59 02/02/17 13:38 81 MG Atorvastatin Calcium (Lipitor Tab) 40 mg QAM PO 01/27/17 09:00 02/26/17 08:59 01/30/17 10:14 40 MG Escitalopram Oxalate (Lexapro Tab) 10 mg DAILY PO 01/27/17 09:00 02/26/17 08:59 02/03/17 11:54 10 MG Sucralfate (Carafate Tab) 1 gm ACHS PO 01/26/17 17:00 02/25/17 16:59 02/04/17 05:50 1 GM Pantoprazole Sodium (Protonix Tab) 40 mg BID PO 01/26/17 21:00 02/25/17 20:59 02/03/17 20:49 40 MG Nitroglycerin (Nitrostat Tab) 0.4 mg PRN PRN SL 01/26/17 15:00 02/25/17 14:59 Potassium Chloride (Klor-Con Tab) 40 meq QAM PO 01/27/17 09:00 02/26/17 08:59 01/30/17 10:13 40 MEQ Multivitamins 10 ml/Folic Acid 1 mg/Thiamine HCl 100 mg/Sodium Chloride 1,011.2 ml @ 100 mls/ hr DAILY@0900 IV 01/27/17 11:30 02/26/17 11:29 02/04/17 09:37 100 MLS/HR Acyclovir (Zovirax 5% Oint) 1 appln [id number] EXT 01/27/17 13:00 02/06/17 08:59 02/04/17 12:15 1 APPLN Metoprolol Tartrate (Lopressor Iv) 5 mg Q6H PRN IV 01/27/17 15:30 02/26/17 08:29 01/30/17 13:01 5 MG Dextrose (Dextrose 50% 50ML Syringe) 25-50ML OF 50% DW IV FOR... UD PRN IV 01/27/17 13:00 02/26/17 12:59 Carvedilol (Coreg Tab) 6.25 mg BID PO 01/29/17 09:00 02/27/17 08:59 02/03/17 20:49 6.25 MG Lisinopril (Zestril Tab) 5 mg QAM PO 01/29/17 09:00 02/27/17 08:59 02/02/17 13:39 5 MG Lorazepam (Ativan Inj) 1 mg Q4H PRN IV 01/29/17 16:15 02/28/17 16:14 Lorazepam (Ativan Inj) 0.5 mg Q4H PRN IV 01/29/17 16:15 02/28/17 16:14 Nicotine (Nicoderm Cq 21MG Patch) 1 patch QAM TD 01/31/17 09:00 03/02/17 08:59 02/04/17 08:22 1 PATCH Miscellaneous (Remove Nicoderm Patch) 1 ea HS N/A 01/30/17 21:00 03/01/17 20:59 02/02/17 20:35 1 EA Hydrocortisone (Proctozone Hc 2.5% Crm) 1 appln Q8 PRN EXT 01/30/17 18:00 03/01/17 17:59 Thiamine HCl 250 mg/Sodium Chloride 52.5 ml @ 208 mls/hr Q8@0400,1200,2000 IV 02/01/17 20:00 03/03/17 19:59 02/04/17 11:02 208 MLS/HR Ciprofloxacin/ Dextrose 400 mg/ Prmx 200 ml @ 100 mls/hr Q12 IV 02/02/17 11:30 02/12/17 11:29 02/04/17 08:19 100 MLS/HR Enteral Nutritional Formula (Boost Pudding) 1 cup TID PO 02/03/17 14:00 03/05/17 13:59 02/03/17 20:48 1 CUP Enoxaparin Sodium (Lovenox Inj) 40 mg QAM SQ 02/04/17 09:00 03/06/17 08:59 02/04/17 08:21 40 MG Review of Systems Review of systems not obtainable secondary to mental status Physical Exam Vital Signs (Past 24 Hrs): Date Time Temp Pulse Resp B/P (MAP) Pulse Ox O2 Delivery O2 Flow Rate FiO2 02/04/17 08:00 Nasal Cannula 2.0 02/04/17 07:05 36.9 86 20 139/86 (103) 97 Nasal Cannula 2.0 02/04/17 00:30 Nasal Cannula 2.0 02/03/17 23:01 36.4 87 20 108/78 (88) 96 Nasal Cannula 2.0 02/03/17 16:00 Nasal Cannula 2.0 02/03/17 14:24 36.8 96 22 119/84 (96) 98 2.0 Physical exam was limited by mental status. Gen.: Patient was extremely lethargic and almost obtunded. Would moan at times. Rarely would open up her eyes when her would speak to her. HEENT: Normocephalic/atraumatic no scleral icterus Heart: Regular rate and rhythm Extremities: No gross deformities or rashes noted Neurological examination: Mental status: She is fairly unresponsive. We'll moan or grunt at times. Will not follow commands. Occasionally will open eyes when speaks to her. No speech is produced. Cranial nerves: Pupils equally round and react to light. Unable to do funduscopic examination secondary to patient shutting her eyes closed. No facial asymmetry noted. Facial sensation appears to be grossly intact. Patient did not open up her mouth for me. Patient was able to look to the left towards her but I cannot get her to look in any other directions. Strength: Patient appears to be moving all extremities equally and antigravity. Sensation: Grossly intact to light touch and noxious stimuli Deep tendon reflexes: +1 in bilateral biceps brachioradialis and patellar. Toes were downgoing to plantar stimulation Coordination was not well tested due to mental status Unable to test gait due to mental status Laboratory Results Past 24 Hours: 02/04/17 06:12 Red Blood Count 3.96, Mean Corpuscular Volume 88.9, Mean Corpuscular Hemoglobin 27.5, Mean Corpuscular Hemoglobin Concent 31.0, Neutrophils (%) (Auto) 77.8, Lymphocytes (%) (Auto) 10.4, Monocytes (%) (Auto) 11.4, Eosinophils (%) (Auto) 0.0, Basophils (%) (Auto) 0.1, Neutrophils # (Auto) 5.23, Lymphocytes # (Auto) 0.70, Monocytes # (Auto) 0.77, Eosinophils # (Auto) 0.00, Basophils # (Auto) 0.01 02/04/17 06:12 Test 02/04/17 06:12 02/04/17 12:25 White Blood Count 6.73 K/uL (4.8-10.8) Red Blood Count 3.96 M/uL (4.2-5.4) Hemoglobin 10.9 g/dL (12.0-16.0) Hematocrit 35.2 % (37-47) Mean Corpuscular Volume 88.9 fL (80-100) Mean Corpuscular Hemoglobin 27.5 pg (25-34) Mean Corpuscular Hemoglobin Concent 31.0 g/dl (32-36) Platelet Count 79 K/uL (130-400) Neutrophils (%) (Auto) 77.8 % Lymphocytes (%) (Auto) 10.4 % Monocytes (%) (Auto) 11.4 % Eosinophils (%) (Auto) 0.0 % Basophils (%) (Auto) 0.1 % Neutrophils # (Auto) 5.23 K/uL (1.4-6.5) Lymphocytes # (Auto) 0.70 K/uL (1.2-3.4) Monocytes # (Auto) 0.77 K/uL (0.11-0.59) Eosinophils # (Auto) 0.00 K/uL (0-0.5) Basophils # (Auto) 0.01 K/uL (0-0.2) RDW Standard Deviation 62.8 fL (36.4-46.3) RDW Coefficient of Variation 19.8 % (11.5-14.5) Immature Granulocyte % (Auto) 0.3 % Immature Granulocyte # (Auto) 0.02 K/uL (0.00-0.02) Nucleated RBC Absolute Count (auto) 0.06 K/uL (0-0) Nucleated Red Blood Cells % 0.9 % Platelet Estimate DECREASED Echinocytes 1+ Anion Gap 10.0 mmol/L (3-11) Est Creatinine Clear Calc Drug Dose 78.6 ml/min Estimated GFR () 103.3 Estimated GFR (Non- 89.1 BUN/Creatinine Ratio 26.9 (10-20) Calcium Level 7.9 mg/dl (8.5-10.1) Imaging As noted above in history of present illness Impression This is a 61-year-old female who presents with worsening acute on chronic encephalopathy. Appears to have had significant decline in functioning and cognition over the last year which could be partially related to alcoholism and nutritional deficiencies. Worsening encephalopathy and delirium could be secondary to Ativan and Librium that was used initially on presentation for alcohol withdrawal. In addition patient also has evidence on the fourth and fifth of elevated LFTs which could contribute to her metabolism of these medication and also cause increased encephalopathy. Patient does have a few other metabolic derangements that may in part contributing to her encephalopathy such as hypernatremia. Even though I was not able to review Dr. Rooney's clinic notes due to downtime of electronic [employer] chart, I was able to review his outpatient workup which largely remains unremarkable at this time for workup of progressive functional decline and encephalopathy. Overall today the family feels that the patient may be moving more and more responsive than she was earlier on in this admission, which could indicate that many of the factors that could be causing her severe encephalopathy may be improving. It is possible that the medications given for alcohol withdrawal may have been processed much slower considering her signs of hepatic dysfunction on liver function tests, causing a much more prolonged recovery of her encephalopathy secondary to medications. Plan I have ordered updated LFTs since this has not been tested since the fifth in addition to an ammonia level for workup of acute on chronic encephalopathy. In addition I sent off for heavy metal screen, copper level, and ceruloplasmin to complete the patient's encephalopathy workup. Liver evaluation per hospitalist team. May have cirrhosis secondary to alcoholism. Would highly consider also checking for HIV which could cause additional progressive encephalopathy Recommend obtaining a nonurgent MRI of the brain without contrast when able to rule out acute stroke. May need to consider using Ativan or Haldol if the patient will not stay still, although this may compound her encephalopathy symptoms. plan on getting a nonurgent routine EEG on Monday to rule out nonconvulsive status or epileptiform discharges. At this time I do not think that she needs a stat EEG this weekend since there is been no activity concerning for seizures. Agree with aspirin 81 mg daily for vascular risk factors and signs of white matter changes on CT and MRI which could indicate small vessel ischemic disease. Agree with thiamine treatment in the setting of alcoholism and encephalopathy. Thiamine level is pending. Thank you for allowing me to participate in this patient's care. If there is any questions or concerns for free to call/patient. 105 min was spent reviewing previous workup, all labs, neuro imaging, medications, counseling the family about possible diagnosis and prognosis, treatment and coordination of care.
--- NOTE | 2017-02-04 13:47 | DIAGNOSTIC IMAGING REPORT ---
[facility]UB CLINICAL HISTORY: NG tube placement confirmation COMPARISON STUDY: CT of the chest abdomen pelvis March 07, 2010. FINDINGS: Visualized portions of the chest demonstrate multifocal airspace opacities and interstitial thickening and left basilar opacity with air bronchograms. The tip of the nasogastric tube projects over the distal body of the stomach. IMPRESSION: Tip of nasogastric tube projects over distal body of stomach. Electronically signed by: Adan Posada M.D. 02/04/2017 1:45 PM Dictated Date/Time: 02/04/2017 1:44 PM
[2017-02-04 14:31] VITALS: BP 111/80; PULSE 78; TEMP 36.3; O2SAT 97
--- NOTE | 2017-02-04 16:40 | Progress Note ---
Subjective Date of Service: Feb 04, 2017. Subjective Pt evaluation today including: conversation w/ patient, conversation w/ family , physical exam, chart review, lab review, review of studies, review of inpatient medication list Pain: right upper quadrant pain on palpation PO Intake: no po intake secondary to AMS pt is seen and examined by me. Pt is unable to provide any information. Nursing reports that this morning they could not arouse the patient. Family reports that she seems to be opening her eyes and moving her extremities more than she was previous days. Pt reports that she was awake and talking when she arrived at the hospital but since getting Ativan and Librium she has been fairly unresponsive. Problem List Medical Problems: (1) Acute electrocardiogram changes Status: Acute (2) Dizziness Status: Acute (3) Elevated troponin Status: Acute (4) Hypokalemia Status: Acute (5) Hypomagnesemia Status: Acute (6) Weakness Status: Acute Review of Systems Abdomen: + pain unable to provide ROS. Medications Medications (Trade) Dose Ordered Sig/Debbie Route Start Time Stop Time Status Last Admin Dose Admin Enoxaparin Sodium (Lovenox Inj) 40 mg QAM SQ 02/04/17 09:00 03/06/17 08:59 02/04/17 08:21 40 MG Furosemide 10 mg/ Syringe 1 ml @ 4 mls/min ONE ONCE IV 02/03/17 18:30 02/03/17 18:31 DC 02/03/17 18:46 4 MLS/MIN Objective Vital Signs Date Time Temp Pulse Resp B/P (MAP) Pulse Ox O2 Delivery O2 Flow Rate FiO2 02/04/17 14:31 36.3 78 20 111/80 (90) 97 02/04/17 08:00 Nasal Cannula 2.0 02/04/17 07:05 36.9 86 20 139/86 (103) 97 Nasal Cannula 2.0 02/04/17 00:30 Nasal Cannula 2.0 02/03/17 23:01 36.4 87 20 108/78 (88) 96 Nasal Cannula 2.0 Physical Exam Comments: Limited physical exam Gen.: Patient was extremely lethargic and almost obtunded. Would moan at times. open her eyes with painful stimuli HEENT: Normocephalic/atraumatic no scleral icterus Heart: RRR Abd: Right upper quadrant tenderness on deep palpation Resp: CTA B/L Extremities: No gross deformities or rashes noted Neurological examination: Mental status: She is fairly unresponsive. We'll moan or grunt at times. Will not follow commands. Occasionally will open eyes when speaks to her. . Laboratory Results Last Resulted CBC 02/04/17 06:12 Red Blood Count 3.96, Mean Corpuscular Volume 88.9, Mean Corpuscular Hemoglobin 27.5, Mean Corpuscular Hemoglobin Concent 31.0, Neutrophils (%) (Auto) 77.8, Lymphocytes (%) (Auto) 10.4, Monocytes (%) (Auto) 11.4, Eosinophils (%) (Auto) 0.0, Basophils (%) (Auto) 0.1, Neutrophils # (Auto) 5.23, Lymphocytes # (Auto) 0.70, Monocytes # (Auto) 0.77, Eosinophils # (Auto) 0.00, Basophils # (Auto) 0.01 Last Resulted BMP 02/04/17 06:12 Last 24 Hours Test 02/04/17 06:12 02/04/17 13:33 02/04/17 14:27 White Blood Count 6.73 K/uL Red Blood Count 3.96 M/uL Hemoglobin 10.9 g/dL Hematocrit 35.2 % Mean Corpuscular Volume 88.9 fL Mean Corpuscular Hemoglobin 27.5 pg Mean Corpuscular Hemoglobin Concent 31.0 g/dl Platelet Count 79 K/uL Neutrophils (%) (Auto) 77.8 % Lymphocytes (%) (Auto) 10.4 % Monocytes (%) (Auto) 11.4 % Eosinophils (%) (Auto) 0.0 % Basophils (%) (Auto) 0.1 % Neutrophils # (Auto) 5.23 K/uL Lymphocytes # (Auto) 0.70 K/uL Monocytes # (Auto) 0.77 K/uL Eosinophils # (Auto) 0.00 K/uL Basophils # (Auto) 0.01 K/uL RDW Standard Deviation 62.8 fL RDW Coefficient of Variation 19.8 % Immature Granulocyte % (Auto) 0.3 % Immature Granulocyte # (Auto) 0.02 K/uL Nucleated RBC Absolute Count (auto) 0.06 K/uL Nucleated Red Blood Cells % 0.9 % Platelet Estimate DECREASED Echinocytes 1+ Sodium Level 149 mmol/L Potassium Level 3.9 mmol/L Chloride Level 117 mmol/L Carbon Dioxide Level 22 mmol/L Anion Gap 10.0 mmol/L Blood Urea Nitrogen 19 mg/dl Creatinine 0.72 mg/dl Est Creatinine Clear Calc Drug Dose 78.6 ml/min Estimated GFR () 103.3 Estimated GFR (Non- 89.1 BUN/Creatinine Ratio 26.9 Random Glucose 122 mg/dl Calcium Level 7.9 mg/dl Total Bilirubin 2.5 mg/dl Direct Bilirubin 1.5 mg/dl Aspartate Amino Transf (AST/SGOT) 333 U/L Alanine Aminotransferase (ALT/SGPT) 792 U/L Alkaline Phosphatase 165 U/L Ammonia 58.0 umol/L Total Protein 5.9 gm/dl Albumin 2.8 gm/dl Assessment and Plan Pt is a 61 yo female with worsening weakness/dizziness x few weeks Encephalopathy vs Chr metabolic encephalopathy ?Wernickes encephalopathy? Neurology Input appreciated, Per neurology non emergent MRI, and EEG. Will also check heavy metal panel, repeat LFt, ammonia, ceruloplasmin, and copper. - Despite weaning librium and detox protocols the patient remains lethargic. Her orientation remains the same. Librium taper off x 2 days, pt is not on any other psych meds and does not appear to be in withdrawal at this time from medications. - CIWA Scoring stopped on 01/29, the patient was likely oversedated with medication - B12 and folate are low-normal - cont thiamine replacement daily - PT/OT consulted. - Ammonia level was essentially negative, =13 - Infectious? Will order another UA and uCx now. Cont IV cipro x2 more days, see below. - CT head from admission negative x 2 for acute findings, will consider an MRI but I don't know if the patient would be able to stay still. - Nutritional status has been poor throughout admission- nutrition recs appreciated - pt is swallowing small amounts of pudding and pureed foods now, hopeful that this continues to improve. Will add boost pudding TID. NSTEMI - Stopped heparin drip - 2D echo completed, pt could not participate in stress test due to lethargy. ECHO: EF 25%, mitral regurg is severe,titrate lizeth and coreg, tachycardia maybe from withdrawal or from need for cardiac output. Stress test unable to be obtained due to encephalopathy. - cont daily ASA 81 mg and atorvastatin 40 mg daily - HR improved with getting morning meds including lisinopril and metoprolol - meds needing crushed, sitting up HOB when administering meds with applesauce, caution for any chance of aspiration. - K+ improved Escherichia coli UTI - Levaquin was transitioned to Cipro 500 mg BID as the culture was pansensitive : Pt was supposed to be getting Cipro PO but has not been administered by nursing due to aspiration risk and large pill size, she had gotten 3 days worth , last date on antibiotic was on 6/5 PM dose. will order another UA and uCx now. - Cont IV cipro (day 2) x total of 4 days. - Continue miguel Aspiration Risk: secondary to change in mental status from chr encephalopathy vs Wernicke - NGT placement - Right Upper quadrant pain: - US liver/gallbladder negative Dyslipidemia - will cont statin Depression/anxiety - cont lexapro 10 mg daily - Difficult to assess GERD - cont omeprazole and Carafate DVT ppx with lovenox, teds, scds CODE STATUS: FULL CODE Continued [facility] stay due to: home environment unsafe for pt Discharge planning: rehab hospital
--- NOTE | 2017-02-04 22:38 | DIAGNOSTIC IMAGING REPORT ---
ABDOMINAL ULTRASOUND, RIGHT UPPER QUADRANT HISTORY: Right upper quadrant abdominal pain. COMPARISON: CT of the chest, abdomen pelvis March 07, 2010 and Doppler ultrasound of the major hepatic vessels January 30, 2017. FINDINGS: This exam is compromised by patient's inability to suspend respiration. A right pleural effusion was incidentally noted. A small amount of ascites is noted. The liver is echogenic. No hepatic lesions are identified by sonography. Flow is not definitively identified within the main portal vein although this could be technical. Moderate gallbladder wall thickening was noted. There was pericholecystic fluid. No gallstones were identified. The pancreatic body is normal. The head and tail are obscured. There is no right hydronephrosis. IMPRESSION: 1. Moderate gallbladder wall thickening, a nonspecific finding. No gallstones. 2. No biliary ductal dilatation. 3. Small amount of ascites and a right pleural effusion. 4. Increased hepatic echogenicity which may reflect fatty infiltration or hepatocellular disease. Portal flow not well demonstrated although this may be technical as the main portal vein was patent on exam of January 30, 2017. Electronically signed by: Adan Posada M.D. 02/04/2017 10:37 PM Dictated Date/Time: 02/04/2017 10:30 PM
[2017-02-05] MEDS: THIAMINE HCL INJ 250 MG in SODIUM CHLORIDE 0.9% 50ML 50 ML IV SCH ×3 (04:14→12:14)
[2017-02-05] MEDS: SUCRALFATE 1 GM TAB PO SCH ×4 (05:27→21:43)
[2017-02-05] MEDS: ACYCLOVIR 5% OINT 15 GM TUBE EXT SCH ×5 (05:28→19:00)
[2017-02-05 06:56] VITALS: BP 140/101; PULSE 109; TEMP 36.9; O2SAT 90
[2017-02-05 06:56] LABS: MEAN CORPUSCULAR HGB CONC 30.2 g/dl (32-36)
[2017-02-05 07:02] LABS: HEMATOCRIT 35.8 % (37-47); MEAN CELL VOLUME 91.8 fL (80-100); MEAN CORPUSCULAR HEMOGLOBIN 27.7 pg (25-34); WHITE BLOOD COUNT 10.68 K/uL (4.8-10.8)
[2017-02-05 07:25] LABS: PLATELET COUNT 88 K/uL (130-400)
[2017-02-05 07:26] LABS: BASO % 0.1 %; BASO ABS # 0.01 K/uL (0-0.2); COMPLETE YES; ECHINOCYTES 2+; IG% 0.5 %; LYMPH % 10.4 %; LYMPH ABS # 1.11 K/uL (1.2-3.4); MONO % 2.3 %; NEUT % 86.7 %; PLT ESTIMATE DECREASED; POLYCHROMASIA 1+
[2017-02-05 07:34] LABS: BUN/CREATININE RATIO 29.5 (10-20); CALCIUM 8.4 mg/dl (8.5-10.1); CREATININE 0.88 mg/dl (0.60-1.20); POTASSIUM 4.3 mmol/L (3.5-5.1)
[2017-02-05] MEDS: BOOST VANILLA PUDDING CUP PO SCH ×3 (08:02→21:00)
[2017-02-05] MEDS: POTASSIUM CHLORIDE 20 MEQ TABCR PO SCH (08:02)
[2017-02-05] MEDS: ASPIRIN 81 MG ECTAB PO SCH (08:02)
[2017-02-05] MEDS: ATORVASTATIN 40 MG TAB PO SCH (08:03)
[2017-02-05] MEDS: PANTOprazole SOD 40 MG TAB PO SCH (08:03)
[2017-02-05] MEDS: NICOTINE 21 MG/24 HR TDSY TD SCH (08:03)
[2017-02-05] MEDS: MULTI-VITAMIN INFUSION INJ 10 ML, FoLIC ACID INJ 1 MG, THIAMINE HCL INJ 100 MG in SODIU... IV SCH (08:37)
[2017-02-05] MEDS: CIPROFLOXACIN / D5W 400 MG in PREMIXED IN D5W 200 ML IV SCH (08:40)
[2017-02-05] MEDS: CARVEDILOL 6.25 MG TAB PO SCH ×2 (08:48→21:42)
[2017-02-05] MEDS: ESCITALOPRAM OXALATE 10 MG TAB PO SCH (08:48)
[2017-02-05] MEDS: LISINOPRIL 5 MG TAB PO SCH (08:49)
[2017-02-05] MEDS: ENOXAPARIN 40 MG/0.4 ML SYR SQ SCH (09:01)
[2017-02-05 09:26] VITALS: BP 140/95; PULSE 97; O2SAT 95
[2017-02-05] MEDS ORDERED: FUROSEMIDE INJ 20 MG in SYRINGE 0 ML IV ONE (09:30)
--- NOTE | 2017-02-05 09:32 | DIAGNOSTIC IMAGING REPORT ---
CHEST ONE VIEW PORTABLE CLINICAL HISTORY: fluid overload COMPARISON STUDY: 02/03/2017 FINDINGS: The heart is enlarged. There is radiographic evidence of congestive failure with pulmonary edema and bilateral pleural effusions. There are associated bilateral airspace opacities, likely representing pulmonary edema although a superimposed multifocal pneumonia could appear similar.. There is been interval insertion of a nasogastric tube which passes into the stomach. There is an internally fixated mid right humeral fracture. There is radiographic evidence of nonunion with hardware loosening.[ IMPRESSION: 1. Persistent congestive failure with pulmonary edema, bilateral pleural effusions, and bilateral airspace opacities 2. Nasogastric tube within the stomach 3. Ununited internally fixated mid right humeral fracture with evidence of hardware loosening Electronically signed by: Kg Doran M.D. 02/05/2017 9:31 AM Dictated Date/Time: 02/05/2017 9:27 AM
[2017-02-05 09:40] LABS: PHOSPHORUS 3.1 mg/dl (2.5-4.9)
[2017-02-05] MEDS: LACTULOSE SYRUP 30 GM/45 ML UDP PO SCH ×2 (10:13→21:42)
[2017-02-05] MEDS: ASPIRIN 81 MG CHEW NG SCH (10:13)
[2017-02-05] MEDS ORDERED: FIBERSOURCE HN 1000ML BAG NG PRN ×2 (10:45)
[2017-02-05] MEDS ORDERED: PANTOprazole INJ 40 MG in SYRINGE 0 ML IV SCH (11:00)
--- NOTE | 2017-02-05 11:13 | Nephrology Consultation ---
Nephrology Consultation Date & Providers Date of Consultation: Feb 05, 2017. Primary Care Provider: Zachary Fulton D.O.Int.Med. Referring Provider: Reason for Consultation Hypernatremia History of Present Illness Mrs. Savanna Mercado is a 61 year-old female with alcoholism, tobacco use , GERD, hypertension and dyslipidemia. She was evaluated in the neurology clinic in December by Dr. Rooney regarding abnormal findings noted on MRI of the brain. This study was obtained to evaluate a history of progressive difficulty with balance, concentration, visual focusing, and hearing which began insidiously over the past few years but has become much more noticeable over the past 3-4 months. Differential diagnosis included age advanced cerebrovascular disease, changes of chronic alcoholism, a potential demyelinating disorder such as multiple sclerosis or cerebral autosomal dominant arteriopathy with subcortical infarcts and leukoencephalopathy (CADASIL ). Savanna is currently severely encephalopathic and unable to provide history. Medical records from the inpatient and outpatient EHR were reviewed in detail. I discussed the plan of care with the inpatient pharmacist and bedside nurse. Savanna presented with mental status changes and difficulty with balance. Alcohol withdrawal protocol was initiated for chronic and current alcohol use. Unfortunately, there has been no notable improvement in her mental status since admission. The patient has been unable to feed herself. Her intake is very limited. She has had a progressive free water deficit. NGT has been placed with plans to begin TF today. She has been receiving thiamine, folate and multivitamin supplementation daily mixed with 0.9% saline. A review of systems was unable to be obtained from the patient. 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 Surgical: History of Open Treatment Of Humeral Shaft Fracture With Plate/Screws Allergies Coded Allergies: No Known Allergies (Verified , 01/05/17) Inpatient Medications Current Inpatient Medications Medications (Trade) Dose Ordered Sig/Debbie Route Start Time Stop Time Status Last Admin Dose Admin Acetaminophen (Tylenol Tab) 650 mg Q4H PRN PO 01/26/17 14:30 02/25/17 14:29 Al Hydrox/Mg Hydrox/Simethicone (Maalox Max Susp) 15 ml Q4H PRN PO 01/26/17 14:30 7/1/17 14:29 Ondansetron HCl (Zofran Inj) 4 mg Q6H PRN IV 01/26/17 14:30 02/25/17 14:29 Atorvastatin Calcium (Lipitor Tab) 40 mg QAM PO 01/27/17 09:00 02/26/17 08:59 01/30/17 10:14 40 MG Escitalopram Oxalate (Lexapro Tab) 10 mg DAILY PO 01/27/17 09:00 02/26/17 08:59 02/05/17 08:48 10 MG Sucralfate (Carafate Tab) 1 gm ACHS PO 01/26/17 17:00 02/25/17 16:59 02/04/17 05:50 1 GM Nitroglycerin (Nitrostat Tab) 0.4 mg PRN PRN SL 01/26/17 15:00 02/25/17 14:59 Potassium Chloride (Klor-Con Tab) 40 meq QAM PO 01/27/17 09:00 02/26/17 08:59 01/30/17 10:13 40 MEQ Multivitamins 10 ml/Folic Acid 1 mg/Thiamine HCl 100 mg/Sodium Chloride 1,011.2 ml @ 100 mls/ hr DAILY@0900 IV 01/27/17 11:30 02/26/17 11:29 02/05/17 08:37 100 MLS/HR Acyclovir (Zovirax 5% Oint) 1 appln [id number] EXT 01/27/17 13:00 02/06/17 08:59 02/05/17 10:37 1 APPLN Metoprolol Tartrate (Lopressor Iv) 5 mg Q6H PRN IV 01/27/17 15:30 02/26/17 08:29 01/30/17 13:01 5 MG Dextrose (Dextrose 50% 50ML Syringe) 25-50ML OF 50% DW IV FOR... UD PRN IV 01/27/17 13:00 02/26/17 12:59 Carvedilol (Coreg Tab) 6.25 mg BID PO 01/29/17 09:00 02/27/17 08:59 02/05/17 08:48 6.25 MG Lisinopril (Zestril Tab) 5 mg QAM PO 01/29/17 09:00 02/27/17 08:59 02/05/17 08:49 5 MG Lorazepam (Ativan Inj) 1 mg Q4H PRN IV 01/29/17 16:15 02/28/17 16:14 Lorazepam (Ativan Inj) 0.5 mg Q4H PRN IV 01/29/17 16:15 02/28/17 16:14 Nicotine (Nicoderm Cq 21MG Patch) 1 patch QAM TD 01/31/17 09:00 03/02/17 08:59 02/04/17 08:22 1 PATCH Miscellaneous (Remove Nicoderm Patch) 1 ea HS N/A 01/30/17 21:00 03/01/17 20:59 02/04/17 20:36 1 EA Hydrocortisone (Proctozone Hc 2.5% Crm) 1 appln Q8 PRN EXT 01/30/17 18:00 03/01/17 17:59 Thiamine HCl 250 mg/Sodium Chloride 52.5 ml @ 208 mls/hr Q8@0400,1200,2000 IV 02/01/17 20:00 03/03/17 19:59 02/05/17 04:14 208 MLS/HR Ciprofloxacin/ Dextrose 400 mg/ Prmx 200 ml @ 100 mls/hr Q12 IV 02/02/17 11:30 02/12/17 11:29 02/05/17 08:40 100 MLS/HR Enteral Nutritional Formula (Boost Pudding) 1 cup TID PO 02/03/17 14:00 03/05/17 13:59 02/03/17 20:48 1 CUP Enoxaparin Sodium (Lovenox Inj) 40 mg QAM SQ 02/04/17 09:00 03/06/17 08:59 02/05/17 09:01 40 MG Pantoprazole Sodium 40 mg/ Syringe 10 ml @ 5 mls/min DAILY@11 IV 02/05/17 11:00 03/07/17 10:59 Aspirin (Aspirin Chew) 81 mg DAILY NG 02/05/17 09:30 03/07/17 09:29 02/05/17 10:13 81 MG Lactulose (Chronulac Syrup) 30 gm BID PO 02/05/17 09:30 02/05/17 21:01 6/11/17 10:13 30 GM Enteral Nutritional Formula (Fibersource HN) 1,000 ml UD PRN NG 02/05/17 10:30 03/07/17 10:29 Family History Cancer Hypertension Social History Smoking Status: Current Every Day Smoker Smokeless Tobacco Use: No Alcohol Use: occasionally Drug Use: none Marital Status: Occupation: employed Review of Systems A complete review of systems was performed. Pertinent positives are noted above. All other systems are negative. Physical Exam Date Time Temp Pulse Resp B/P (MAP) Pulse Ox O2 Delivery O2 Flow Rate FiO2 02/05/17 09:26 97 20 140/95 (110) 95 Nasal Cannula 2.0 02/05/17 06:56 36.9 109 28 140/101 (114) 90 Nasal Cannula 2.0 02/04/17 16:59 Room Air 02/04/17 14:31 36.3 78 20 111/80 (90) 97 General Appearance: + thin (appears older than stated age, advanced encephalopathy, does not respond appropriately to voice), + pertinent finding Head: normocephalic, atraumatic Eyes: normal inspection, + pertinent finding (scleral icterus can be appreciated, pupils equal bilaterally) ENT: normal ENT inspection, + pertinent finding (oral mucosa dry without oral lesions) Neck: supple, no JVD Respiratory/Chest: lungs clear, no respiratory distress, no accessory muscle use Cardiovascular: regular rate, rhythm, no gallop, no murmur Abdomen/GI: soft, + pertinent finding (no guarding, no HSM appreciated) Genitourinary - Female: + pertinent finding ([place] draining yellow urine) Extremities/Musculoskelatal: + pertinent finding (generalized pitting edema, ) Neurologic/Psych: + pertinent finding (No tremor. patient moves all extremities. decreased muscle tone and generalized weakness appreciated. she is non verbal with pronounced encephalopathy) Skin: normal color Laboratory Results Last 24 Hours Test 02/04/17 13:33 02/04/17 20:40 02/05/17 06:41 Total Bilirubin 2.5 mg/dl Direct Bilirubin 1.5 mg/dl Aspartate Amino Transf (AST/SGOT) 333 U/L Alanine Aminotransferase (ALT/SGPT) 792 U/L Alkaline Phosphatase 165 U/L Ammonia 58.0 umol/L Total Protein 5.9 gm/dl Albumin 2.8 gm/dl White Blood Count 10.68 K/uL Red Blood Count 3.90 M/uL Hemoglobin 10.8 g/dL Hematocrit 35.8 % Mean Corpuscular Volume 91.8 fL Mean Corpuscular Hemoglobin 27.7 pg Mean Corpuscular Hemoglobin Concent 30.2 g/dl Platelet Count 88 K/uL Neutrophils (%) (Auto) 86.7 % Lymphocytes (%) (Auto) 10.4 % Monocytes (%) (Auto) 2.3 % Eosinophils (%) (Auto) 0.0 % Basophils (%) (Auto) 0.1 % Neutrophils # (Auto) 9.26 K/uL Lymphocytes # (Auto) 1.11 K/uL Monocytes # (Auto) 0.25 K/uL Eosinophils # (Auto) 0.00 K/uL Basophils # (Auto) 0.01 K/uL RDW Standard Deviation 66.5 fL RDW Coefficient of Variation 20.6 % Immature Granulocyte % (Auto) 0.5 % Immature Granulocyte # (Auto) 0.05 K/uL Nucleated RBC Absolute Count (auto) 0.09 K/uL Nucleated Red Blood Cells % 0.8 % Platelet Estimate DECREASED Polychromasia 1+ Echinocytes 2+ Sodium Level 149 mmol/L Potassium Level 4.3 mmol/L Chloride Level 117 mmol/L Carbon Dioxide Level 17 mmol/L Anion Gap 15.0 mmol/L Blood Urea Nitrogen 26 mg/dl Creatinine 0.88 mg/dl Est Creatinine Clear Calc Drug Dose 64.3 ml/min Estimated GFR () 81.0 Estimated GFR (Non- 69.9 BUN/Creatinine Ratio 29.5 Random Glucose 95 mg/dl Calcium Level 8.4 mg/dl Phosphorus Level 3.1 mg/dl Impression (1) Alcohol dependence (2) Alcohol withdrawal (3) Acute encephalopathy (4) Acute liver disease (5) Hypernatremia Mrs. Savanna Mercado is a 61-year-old female with acute hepatitis associated with chronic alcohol use. She has pronounced mental status changes. The patient has not been able to feed herself due to mental status changes. She has not tolerated oral feeding. She has a free water deficit of at least 1- 2 liters. NGT has been placed and TF ordered. I have ordered free water replacement enterally. Additionally, saline infusions will be stopped. Metabolic profile this morning notable for increasing metabolic acidosis. This will be monitored. Recommendations -- Stop daily saline infusion with MVI/B vitamins -- MVI to be given in liquid formulation via NGT -- Thiamine and folic acid to be given via NGT -- Start TF with fibersource as ordered -- Provide free water: 300 ml q 4 hours to start -- Repeat metabolic profile this afternoon -- Check phosphorus level -- Hold additional diuretics at this time -- Minimize IVF as able
[2017-02-05] MEDS ORDERED: TUBE FEEDING WATER FLUSH NG SCH (12:00)
[2017-02-05] MEDS: FIBERSOURCE HN 1000ML BAG NG PRN ×2 (12:00)
[2017-02-05] MEDS: TUBE FEEDING WATER FLUSH NG SCH ×3 (12:00→20:00)
[2017-02-05 12:19] VITALS: BP 102/71; PULSE 75; TEMP 36.7; O2SAT 93
--- NOTE | 2017-02-05 13:00 | Neurology Progress Notes ---
Neurology Progress Note Date of Service Feb 05, 2017. Subjective No significant change in patient's mental status. Still fairly unresponsive. LFTs were noted to be still elevated and ammonia of 58. Patient also has metabolic acidosis. Objective Date Time Temp Pulse Resp B/P (MAP) Pulse Ox O2 Delivery O2 Flow Rate FiO2 02/05/17 12:19 36.7 75 16 102/71 (81) 93 Nasal Cannula 2.0 02/05/17 09:26 97 20 140/95 (110) 95 Nasal Cannula 2.0 02/05/17 08:00 Nasal Cannula 2.0 02/05/17 06:56 36.9 109 28 140/101 (114) 90 Nasal Cannula 2.0 02/04/17 16:59 Room Air 02/04/17 14:31 36.3 78 20 111/80 (90) 97 Last 24 Hours Test 02/04/17 13:33 02/04/17 20:40 02/05/17 06:41 Total Bilirubin 2.5 mg/dl Direct Bilirubin 1.5 mg/dl Aspartate Amino Transf (AST/SGOT) 333 U/L Alanine Aminotransferase (ALT/SGPT) 792 U/L Alkaline Phosphatase 165 U/L Ammonia 58.0 umol/L Total Protein 5.9 gm/dl Albumin 2.8 gm/dl White Blood Count 10.68 K/uL Red Blood Count 3.90 M/uL Hemoglobin 10.8 g/dL Hematocrit 35.8 % Mean Corpuscular Volume 91.8 fL Mean Corpuscular Hemoglobin 27.7 pg Mean Corpuscular Hemoglobin Concent 30.2 g/dl Platelet Count 88 K/uL Neutrophils (%) (Auto) 86.7 % Lymphocytes (%) (Auto) 10.4 % Monocytes (%) (Auto) 2.3 % Eosinophils (%) (Auto) 0.0 % Basophils (%) (Auto) 0.1 % Neutrophils # (Auto) 9.26 K/uL Lymphocytes # (Auto) 1.11 K/uL Monocytes # (Auto) 0.25 K/uL Eosinophils # (Auto) 0.00 K/uL Basophils # (Auto) 0.01 K/uL RDW Standard Deviation 66.5 fL RDW Coefficient of Variation 20.6 % Immature Granulocyte % (Auto) 0.5 % Immature Granulocyte # (Auto) 0.05 K/uL Nucleated RBC Absolute Count (auto) 0.09 K/uL Nucleated Red Blood Cells % 0.8 % Platelet Estimate DECREASED Polychromasia 1+ Echinocytes 2+ Sodium Level 149 mmol/L Potassium Level 4.3 mmol/L Chloride Level 117 mmol/L Carbon Dioxide Level 17 mmol/L Anion Gap 15.0 mmol/L Blood Urea Nitrogen 26 mg/dl Creatinine 0.88 mg/dl Est Creatinine Clear Calc Drug Dose 64.3 ml/min Estimated GFR () 81.0 Estimated GFR (Non- 69.9 BUN/Creatinine Ratio 29.5 Random Glucose 95 mg/dl Calcium Level 8.4 mg/dl Phosphorus Level 3.1 mg/dl Exam: Physical exam was limited by mental status. Gen.: Patient was extremely lethargic and mostly obtunded. Would moan at times. Would not open up eyes HEENT: Normocephalic/atraumatic no scleral icterus Extremities: No gross deformities or rashes noted Neurological examination: Mental status: She is unresponsive to voice. Minimal response to noxious stimuli and sternal rub. Will moan or grunt at times. Will not follow commands. Would not open up her eyes. No speech is produced. Cranial nerves: Pupils equally round and react to light. Strength: Patient appears to be moving all extremities equally Sensation: Will withdrawal extremities to noxious stimuli Deep tendon reflexes: There may have been a slight upgoing toe to plantar stimulation versus withdrawal reflex bilaterally Coordination was not well tested due to mental status Unable to test gait due to mental status Current Inpatient Medications Medications (Trade) Dose Ordered Sig/Debbie Route Start Time Stop Time Status Last Admin Dose Admin Acetaminophen (Tylenol Tab) 650 mg Q4H PRN PO 01/26/17 14:30 02/25/17 14:29 Al Hydrox/Mg Hydrox/Simethicone (Maalox Max Susp) 15 ml Q4H PRN PO 01/26/17 14:30 02/25/17 14:29 Ondansetron HCl (Zofran Inj) 4 mg Q6H PRN IV 01/26/17 14:30 02/25/17 14:29 Atorvastatin Calcium (Lipitor Tab) 40 mg QAM PO 01/27/17 09:00 02/26/17 08:59 01/30/17 10:14 40 MG Escitalopram Oxalate (Lexapro Tab) 10 mg DAILY PO 01/27/17 09:00 02/26/17 08:59 02/05/17 08:48 10 MG Sucralfate (Carafate Tab) 1 gm ACHS PO 01/26/17 17:00 02/25/17 16:59 02/05/17 11:58 1 GM Nitroglycerin (Nitrostat Tab) 0.4 mg PRN PRN SL 01/26/17 15:00 02/25/17 14:59 Potassium Chloride (Klor-Con Tab) 40 meq QAM PO 01/27/17 09:00 02/26/17 08:59 01/30/17 10:13 40 MEQ Acyclovir (Zovirax 5% Oint) 1 appln [id number] EXT 01/27/17 13:00 02/06/17 08:59 02/05/17 10:37 1 APPLN Metoprolol Tartrate (Lopressor Iv) 5 mg Q6H PRN IV 01/27/17 15:30 02/26/17 08:29 01/30/17 13:01 5 MG Dextrose (Dextrose 50% 50ML Syringe) 25-50ML OF 50% DW IV FOR... UD PRN IV 01/27/17 13:00 02/26/17 12:59 Carvedilol (Coreg Tab) 6.25 mg BID PO 01/29/17 09:00 02/27/17 08:59 02/05/17 08:48 6.25 MG Lisinopril (Zestril Tab) 5 mg QAM PO 01/29/17 09:00 02/27/17 08:59 02/05/17 08:49 5 MG Lorazepam (Ativan Inj) 1 mg Q4H PRN IV 01/29/17 16:15 02/28/17 16:14 Lorazepam (Ativan Inj) 0.5 mg Q4H PRN IV 01/29/17 16:15 02/28/17 16:14 Nicotine (Nicoderm Cq 21MG Patch) 1 patch QAM TD 01/31/17 09:00 03/02/17 08:59 02/04/17 08:22 1 PATCH Miscellaneous (Remove Nicoderm Patch) 1 ea HS N/A 01/30/17 21:00 03/01/17 20:59 02/04/17 20:36 1 EA Hydrocortisone (Proctozone Hc 2.5% Crm) 1 appln Q8 PRN EXT 01/30/17 18:00 03/01/17 17:59 Thiamine HCl 250 mg/Sodium Chloride 52.5 ml @ 208 mls/hr Q8@0400,1200,2000 IV 02/01/17 20:00 03/03/17 19:59 02/05/17 12:14 208 MLS/HR Ciprofloxacin/ Dextrose 400 mg/ Prmx 200 ml @ 100 mls/hr Q12 IV 02/02/17 11:30 02/12/17 11:29 02/05/17 08:40 100 MLS/HR Enteral Nutritional Formula (Boost Pudding) 1 cup TID PO 02/03/17 14:00 03/05/17 13:59 02/03/17 20:48 1 CUP Enoxaparin Sodium (Lovenox Inj) 40 mg QAM SQ 02/04/17 09:00 03/06/17 08:59 02/05/17 09:01 40 MG Pantoprazole Sodium 40 mg/ Syringe 10 ml @ 5 mls/min DAILY@11 IV 02/05/17 11:00 03/07/17 10:59 02/05/17 10:43 5 MLS/MIN Aspirin (Aspirin Chew) 81 mg DAILY NG 02/05/17 09:30 03/07/17 09:29 02/05/17 10:13 81 MG Lactulose (Chronulac Syrup) 30 gm BID PO 02/05/17 09:30 02/05/17 21:01 02/05/17 10:13 30 GM Enteral Nutritional Formula (Fibersource HN) 1,000 ml UD PRN NG 02/05/17 10:30 03/07/17 10:29 02/05/17 12:00 1,000 ML Multivitamins Therapeutic (Cerovite Liquid) 15 ml DAILY@0900 NG 02/06/17 09:00 03/08/17 08:59 Folic Acid (Folvite Oral Soln) 1,000 mcg DAILY@0900 NG 02/06/17 09:00 03/08/17 08:59 Thiamine HCl (Vitamin B-1 Tab) 100 mg DAILY@0900 NG 02/06/17 09:00 03/08/17 08:59 Sterile Water (Tube Feeding Water Flush) 200 ea Q6 NG 02/05/17 12:00 03/07/17 11:59 02/05/17 12:00 200 EA Impression This is a 61-year-old female who presents with worsening acute on chronic encephalopathy. Appears to have had significant decline in functioning and cognition over the last year which could be partially related to alcoholism and nutritional deficiencies. Worsening encephalopathy and delirium could be secondary to Ativan and Librium that was used initially on presentation for alcohol withdrawal. In addition patient also has signs of acute hepatitis, elevated ammonia, and metabolic acidosis contributing to encephalopathy. Outpatient workup for worsening functional decline in cognition have been unremarkable. This is included extensive blood work and lumbar puncture for secondary causes. While CADISIL was considered due to extensive and confluent white matter changes on MRI, at this time felt to be less likely secondary to lack of family history. MRI changes could be related to small vessel ischemic disease versus alcoholism. An autoimmune encephalitis could be considered, but I feel less likely at this time without any additional findings. . Plan Correction of metabolic derangements and treatment of acute hepatitis per hospitalist team. Would highly consider also checking for HIV which could cause additional progressive encephalopathy Recommend obtaining a nonurgent MRI of the brain without contrast when able to rule out acute stroke. May need to consider using Ativan or Haldol if the patient will not stay still, although this may compound her encephalopathy symptoms. plan on getting a nonurgent routine EEG on Monday to rule out nonconvulsive status or epileptiform discharges. At this time I do not think that she needs a stat EEG this weekend since there is been no activity concerning for seizures. Agree with aspirin 81 mg daily for vascular risk factors and signs of white matter changes on CT and MRI which could indicate small vessel ischemic disease. Agree with thiamine treatment in the setting of alcoholism and encephalopathy. Thiamine level is pending. Thank you for allowing me to participate in this patient's care. If there is any questions or concerns for free to call/patient. Dr. Rooney will be coming onto neurology consult services on Monday.
[2017-02-05] MEDS ORDERED: NURSING VERBAL MED ORDER ONE (14:00)
--- NOTE | 2017-02-05 14:41 | Progress Note ---
Subjective Date of Service: Feb 05, 2017. Subjective Pt evaluation today including: physical exam, chart review, lab review, review of studies, conversation w/ health management consultant, review of inpatient medication list Pain: no pain PO Intake: none Voiding: miguel catheter in place (decrease urine output) pt is seen and examined by me, no change in patient's mental status. Pt is unresponsive. Problem List Medical Problems: (1) Acute electrocardiogram changes Status: Acute (2) Dizziness Status: Acute (3) Elevated troponin Status: Acute (4) Hypokalemia Status: Acute (5) Hypomagnesemia Status: Acute (6) Weakness Status: Acute Review of Systems Pt is unable to provide any ROS secondary to encephalopathy. Medications Medications (Trade) Dose Ordered Sig/Debbie Route Start Time Stop Time Status Last Admin Dose Admin Pantoprazole Sodium 40 mg/ Syringe 10 ml @ 5 mls/min DAILY@11 IV 02/05/17 11:00 03/07/17 10:59 02/05/17 10:43 5 MLS/MIN Aspirin (Aspirin Chew) 81 mg DAILY NG 02/05/17 09:30 03/07/17 09:29 02/05/17 10:13 81 MG Furosemide 20 mg/ Syringe 2 ml @ 4 mls/min TODAY@0930 ONCE IV 02/05/17 09:30 02/05/17 09:31 DC 02/05/17 10:11 4 MLS/MIN Lactulose (Chronulac Syrup) 30 gm BID PO 02/05/17 09:30 02/05/17 21:01 02/05/17 10:13 30 GM Enteral Nutritional Formula (Fibersource HN) 1,000 ml UD PRN NG 02/05/17 10:30 03/07/17 10:29 02/05/17 12:00 1,000 ML Sterile Water (Tube Feeding Water Flush) 200 ea Q6 NG 02/05/17 12:00 03/07/17 11:59 02/05/17 12:00 200 EA Objective Vital Signs Date Time Temp Pulse Resp B/P (MAP) Pulse Ox O2 Delivery O2 Flow Rate FiO2 02/05/17 12:19 36.7 75 16 102/71 (81) 93 Nasal Cannula 2.0 02/05/17 09:26 97 20 140/95 (110) 95 Nasal Cannula 2.0 02/05/17 08:00 Nasal Cannula 2.0 02/05/17 06:56 36.9 109 28 140/101 (114) 90 Nasal Cannula 2.0 02/04/17 16:59 Room Air 02/04/17 14:31 36.3 78 20 111/80 (90) 97 Physical Exam Comments: General Appearance: + thin , advanced encephalopathy, does not respond appropriately to voice Head: normocephalic, atraumatic Eyes: scleral icterus can be appreciated Neck: supple, no JVD Respiratory/Chest: lungs clear, no respiratory distress, no accessory muscle use Cardiovascular: regular rate, rhythm, no gallop, no murmur Abdomen/GI: soft, no guarding, BS present Genitourinary - Female: Miguel draining yellow urine Mus: pitting edema Neurologic/Psych: + pertinent finding (No tremor. patient moves all extremities. decreased muscle tone and generalized weakness appreciated. she is non verbal with pronounced encephalopathy) Skin: normal color Laboratory Results Last 24 Hours Test 02/04/17 20:40 02/05/17 06:41 White Blood Count 10.68 K/uL Red Blood Count 3.90 M/uL Hemoglobin 10.8 g/dL Hematocrit 35.8 % Mean Corpuscular Volume 91.8 fL Mean Corpuscular Hemoglobin 27.7 pg Mean Corpuscular Hemoglobin Concent 30.2 g/dl Platelet Count 88 K/uL Neutrophils (%) (Auto) 86.7 % Lymphocytes (%) (Auto) 10.4 % Monocytes (%) (Auto) 2.3 % Eosinophils (%) (Auto) 0.0 % Basophils (%) (Auto) 0.1 % Neutrophils # (Auto) 9.26 K/uL Lymphocytes # (Auto) 1.11 K/uL Monocytes # (Auto) 0.25 K/uL Eosinophils # (Auto) 0.00 K/uL Basophils # (Auto) 0.01 K/uL RDW Standard Deviation 66.5 fL RDW Coefficient of Variation 20.6 % Immature Granulocyte % (Auto) 0.5 % Immature Granulocyte # (Auto) 0.05 K/uL Nucleated RBC Absolute Count (auto) 0.09 K/uL Nucleated Red Blood Cells % 0.8 % Platelet Estimate DECREASED Polychromasia 1+ Echinocytes 2+ Sodium Level 149 mmol/L Potassium Level 4.3 mmol/L Chloride Level 117 mmol/L Carbon Dioxide Level 17 mmol/L Anion Gap 15.0 mmol/L Blood Urea Nitrogen 26 mg/dl Creatinine 0.88 mg/dl Est Creatinine Clear Calc Drug Dose 64.3 ml/min Estimated GFR () 81.0 Estimated GFR (Non- 69.9 BUN/Creatinine Ratio 29.5 Random Glucose 95 mg/dl Calcium Level 8.4 mg/dl Phosphorus Level 3.1 mg/dl Assessment and Plan Pt is a 61 yo female with worsening weakness/dizziness x few weeks Encephalopathy vs Chr metabolic encephalopathy ?Wernickes encephalopathy? Neurology Input appreciated, Per neurology non emergent MRI, and EEG tomarrow morning. Pending heavy metal panel, and B1 levels. - Despite weaning librium and detox protocols the patient remains lethargic. Her orientation remains the same. Librium taper off x 2 days, pt is not on any other psych meds and does not appear to be in withdrawal at this time from medications. - CIWA Scoring stopped on 01/29, the patient was likely oversedated with medication - B12 and folate are low-normal - cont thiamine replacement daily for now at 300mg for next three days, and than 100mg po daily. - CT head from admission negative x 2 for acute findings, will consider an MRI but I don't know if the patient would be able to stay still. - Nutritional status has been poor throughout admission- nutrition recs appreciated - NGT placement and stated feeding via tubes. - Cont thiamine, MVA and folic acid via NGT. Elevated LFt,s and US liver shows fatty changes could be secondary to liver cirrhosis secondary to Alcoholic hepatitis - Repeated Amonia levels are elevated 58, pending copper and ceruloplasmin level. - started lactulose 30mg po bid via NGT - Repeated LFts are trending downward. - will appreciate Gi input. NSTEMI - Stopped heparin drip - 2D echo completed, pt could not participate in stress test due to lethargy. ECHO: EF 25%, mitral regurg is severe,titrate lizeth and coreg, tachycardia maybe from withdrawal or from need for cardiac output. Stress test unable to be obtained due to encephalopathy. - cont daily ASA 81 mg and atorvastatin 40 mg daily - HR improved with getting morning meds including lisinopril and metoprolol - meds needing crushed, sitting up HOB when administering meds with applesauce, caution for any chance of aspiration. - K+ improved Hypernatremia with metabolic acidosis. - nephrology following - free water deficit - minimize IVF - monitor electrolyte Escherichia coli UTI - Levaquin was transitioned to Cipro 500 mg BID as the culture was pansensitive : Pt was supposed to be getting Cipro PO but has not been administered by nursing due to aspiration risk and large pill size, she had gotten 3 days worth , last date on antibiotic was on 6/5 PM dose. will order another UA and uCx now. - Repeated urine culture neg and will d/c cipro Aspiration Risk: secondary to change in mental status from chr encephalopathy vs Wernicke - NGT placement Right Upper quadrant pain: - US liver/gallbladder neg for stones- - fatty changes in Us. Dyslipidemia - will cont statin Depression/anxiety - cont lexapro 10 mg daily - Difficult to assess GERD - cont omeprazole and Carafate DVT ppx with lovenox, teds, scds CODE STATUS: FULL CODE Continued [facility] stay due to: home environment unsafe for pt Discharge planning: rehab hospital
[2017-02-05 15:06] VITALS: BP 103/69; PULSE 77; TEMP 36.4; O2SAT 96
[2017-02-05 18:26] LABS: BUN/CREATININE RATIO 32.5 (10-20); CALCIUM 7.7 mg/dl (8.5-10.1); CREATININE 0.85 mg/dl (0.60-1.20); POTASSIUM 4.3 mmol/L (3.5-5.1)
--- NOTE | 2017-02-05 22:30 | DIAGNOSTIC IMAGING REPORT ---
CHEST ONE VIEW PORTABLE CLINICAL HISTORY: NG placement COMPARISON STUDY: Earlier in the day FINDINGS: The heart remains enlarged. There is a nasogastric tube which passes into the stomach. There are persistent extensive bilateral pulmonary airspace opacities. The study is limited secondary to mild motion artifact. There are internally fixated right humeral fracture is again evident. There is evidence for nonunion with hardware loosening[ IMPRESSION: 1. Persistent congestive failure with pulmonary edema and bilateral pulmonary airspace opacities 2. Suspected bilateral pleural effusions 3. Patient's nasogastric tube can be visualized to the level of the stomach Electronically signed by: Kg Doran M.D. 02/05/2017 10:29 PM Dictated Date/Time: 02/05/2017 10:27 PM
[2017-02-05 22:51] VITALS: BP 111/74; PULSE 74; TEMP 36.3; O2SAT 94
[2017-02-06] MEDS: TUBE FEEDING WATER FLUSH NG SCH ×5 (03:42→21:45)
[2017-02-06] MEDS: ACYCLOVIR 5% OINT 15 GM TUBE EXT SCH (06:15)
[2017-02-06] MEDS: SUCRALFATE 1 GM TAB PO SCH ×2 (06:30→11:40)
[2017-02-06 07:02] VITALS: BP 135/85; TEMP 36.4; O2SAT 93
--- NOTE | 2017-02-06 07:47 | DIAGNOSTIC IMAGING REPORT ---
KUB HISTORY: NG TUBE PLACEMENT COMPARISON: None. FINDINGS: The bowel gas pattern is unremarkable. There are no dilated loops of small bowel to suggest an obstruction. No renal calculi. No ureteral calculi. No pneumoperitoneum or pneumatosis. NG tube is looped within the proximal stomach with the tip terminating in the midesophagus. IMPRESSION: NG tube is looped within the proximal stomach with the tip terminating in the midesophagus. This requires repositioning. Electronically signed by: Obi Parada M.D. 02/06/2017 7:46 AM Dictated Date/Time: 02/06/2017 7:44 AM
[2017-02-06 08:24] LABS: ALB/GLOB RATIO 0.9 (0.9-2); BUN/CREATININE RATIO 31.7 (10-20); CREATININE 0.89 mg/dl (0.60-1.20); MAGNESIUM 1.8 mg/dl (1.8-2.4); PHOSPHORUS 2.5 mg/dl (2.5-4.9); POTASSIUM 3.4 mmol/L (3.5-5.1)
[2017-02-06] MEDS ORDERED: FOLIC ACID 100 MCG/ML NG SCH (09:00)
[2017-02-06] MEDS: BOOST VANILLA PUDDING CUP PO SCH ×3 (09:00→20:49)
[2017-02-06 09:13] LABS: CALCIUM 8.4 mg/dl (8.5-10.1)
--- NOTE | 2017-02-06 09:39 | Neurology Progress Notes ---
Neurology Progress Note Date of Service Feb 06, 2017. Subjective f/u for delirium patient remains agitated, confused, with poor attention, pulling at lines, moaning Objective Date Time Temp Pulse Resp B/P (MAP) Pulse Ox O2 Delivery O2 Flow Rate FiO2 02/06/17 07:02 36.4 28 135/85 (102) 93 Nasal Cannula 2.0 02/06/17 03:52 Nasal Cannula 2.0 02/05/17 22:51 36.3 74 18 111/74 (86) 94 Nasal Cannula 2.0 02/05/17 20:55 Nasal Cannula 2.0 02/05/17 16:00 Nasal Cannula 2.0 02/05/17 15:06 36.4 77 16 103/69 (80) 96 Nasal Cannula 2.0 02/05/17 12:19 36.7 75 16 102/71 (81) 93 Nasal Cannula 2.0 Last 24 Hours Test 02/05/17 17:56 02/06/17 07:34 Sodium Level 153 mmol/L 152 mmol/L Potassium Level 4.3 mmol/L 3.4 mmol/L Chloride Level 118 mmol/L 117 mmol/L Carbon Dioxide Level 24 mmol/L 23 mmol/L Anion Gap 11.0 mmol/L 12.0 mmol/L Blood Urea Nitrogen 28 mg/dl 28 mg/dl Creatinine 0.85 mg/dl 0.89 mg/dl Est Creatinine Clear Calc Drug Dose 66.6 ml/min 63.6 ml/min Estimated GFR () 84.5 79.9 Estimated GFR (Non- 72.9 69.0 BUN/Creatinine Ratio 32.5 31.7 Random Glucose 120 mg/dl 124 mg/dl Calcium Level 7.7 mg/dl 8.4 mg/dl Phosphorus Level 2.5 mg/dl Magnesium Level 1.8 mg/dl Total Bilirubin 2.8 mg/dl Aspartate Amino Transf (AST/SGOT) 318 U/L Alanine Aminotransferase (ALT/SGPT) 642 U/L Alkaline Phosphatase 168 U/L Ammonia 38.0 umol/L Total Protein 6.1 gm/dl Albumin 2.9 gm/dl Globulin 3.2 gm/dl Albumin/Globulin Ratio 0.9 Exam: obtunded, agitated, poor attention, moaning, does not follow commands, no twitching, jerking or myoclonus Current Inpatient Medications Medications (Trade) Dose Ordered Sig/Debbie Route Start Time Stop Time Status Last Admin Dose Admin Acetaminophen (Tylenol Tab) 650 mg Q4H PRN PO 01/26/17 14:30 02/25/17 14:29 Al Hydrox/Mg Hydrox/Simethicone (Maalox Max Susp) 15 ml Q4H PRN PO 01/26/17 14:30 02/25/17 14:29 Ondansetron HCl (Zofran Inj) 4 mg Q6H PRN IV 01/26/17 14:30 02/25/17 14:29 Atorvastatin Calcium (Lipitor Tab) 40 mg QAM PO 01/27/17 09:00 02/26/17 08:59 01/30/17 10:14 40 MG Escitalopram Oxalate (Lexapro Tab) 10 mg DAILY PO 01/27/17 09:00 02/26/17 08:59 02/05/17 08:48 10 MG Sucralfate (Carafate Tab) 1 gm ACHS PO 01/26/17 17:00 02/25/17 16:59 02/05/17 21:43 1 GM Nitroglycerin (Nitrostat Tab) 0.4 mg PRN PRN SL 01/26/17 15:00 02/25/17 14:59 Potassium Chloride (Klor-Con Tab) 40 meq QAM PO 01/27/17 09:00 02/26/17 08:59 01/30/17 10:13 40 MEQ Metoprolol Tartrate (Lopressor Iv) 5 mg Q6H PRN IV 01/27/17 15:30 02/26/17 08:29 01/30/17 13:01 5 MG Dextrose (Dextrose 50% 50ML Syringe) 25-50ML OF 50% DW IV FOR... UD PRN IV 01/27/17 13:00 02/26/17 12:59 Carvedilol (Coreg Tab) 6.25 mg BID PO 01/29/17 09:00 02/27/17 08:59 02/05/17 21:42 6.25 MG Lisinopril (Zestril Tab) 5 mg QAM PO 01/29/17 09:00 02/27/17 08:59 02/05/17 08:49 5 MG Lorazepam (Ativan Inj) 1 mg Q4H PRN IV 01/29/17 16:15 02/28/17 16:14 Lorazepam (Ativan Inj) 0.5 mg Q4H PRN IV 01/29/17 16:15 02/28/17 16:14 Nicotine (Nicoderm Cq 21MG Patch) 1 patch QAM TD 01/31/17 09:00 03/02/17 08:59 02/04/17 08:22 1 PATCH Miscellaneous (Remove Nicoderm Patch) 1 ea HS N/A 01/30/17 21:00 03/01/17 20:59 02/05/17 21:00 1 EA Hydrocortisone (Proctozone Hc 2.5% Crm) 1 appln Q8 PRN EXT 01/30/17 18:00 03/01/17 17:59 Ciprofloxacin/ Dextrose 400 mg/ Prmx 200 ml @ 100 mls/hr Q12 IV 02/02/17 11:30 02/12/17 11:29 Future Hold 02/05/17 08:40 100 MLS/HR Enteral Nutritional Formula (Boost Pudding) 1 cup TID PO 02/03/17 14:00 03/05/17 13:59 02/03/17 20:48 1 CUP Enoxaparin Sodium (Lovenox Inj) 40 mg QAM SQ 02/04/17 09:00 03/06/17 08:59 02/05/17 09:01 40 MG Aspirin (Aspirin Chew) 81 mg DAILY NG 02/05/17 09:30 03/07/17 09:29 02/05/17 10:13 81 MG Enteral Nutritional Formula (Fibersource HN) 1,000 ml UD PRN NG 02/05/17 10:30 03/07/17 10:29 02/05/17 12:00 1,000 ML Multivitamins Therapeutic (Cerovite Liquid) 15 ml DAILY@0900 NG 02/06/17 09:00 03/08/17 08:59 Thiamine HCl (Vitamin B-1 Tab) 100 mg DAILY@0900 NG 02/06/17 09:00 03/08/17 08:59 Future hold Folic Acid (Folvite Tab) 1 mg DAILY@0900 NG 02/06/17 09:00 03/08/17 08:59 Lansoprazole (Prevacid Solutab) 30 mg DAILY NG 02/06/17 09:00 03/08/17 08:59 Thiamine HCl (Vitamin B-1 Tab) 300 mg DAILY NG 02/06/17 09:00 02/08/17 09:01 Sterile Water (Tube Feeding Water Flush) 300 ea Q4 NG 02/05/17 20:00 03/07/17 11:59 02/05/17 20:00 300 EA Impression agitated delirium Plan would prefer Brain MRI to exclude stroke or other acute process however, if unable to tolerate MRI would recommend a repeat CT head EEG pending
--- NOTE | 2017-02-06 10:07 | Nephrology Progress Note ---
Nephrology Progress Note Date of Service Feb 06, 2017. Chief Complaint Hypernatremia Subjective Savanna remains profoundly encephalopathic. She was agitated overnight. NGT has been pulled out twice. High residuals were noted when TF rate was increased to 60. TF currently turned off. Minimal free water given due to inability to maintain consistent enteral feeding. Difficult IV access as well. Neurology requested MRI but patient will not stay still or follow commands. No fevers. Review of Systems A complete review of systems was performed. Pertinent positives are noted above. All other systems are negative. Vital Signs Last 8 Hrs Date Time Temp Pulse Resp B/P (MAP) Pulse Ox O2 Delivery O2 Flow Rate FiO2 02/06/17 07:02 36.4 28 135/85 (102) 93 Nasal Cannula 2.0 02/06/17 03:52 Nasal Cannula 2.0 Last Recorded Weight Weight (Kilograms): 77.100 Physical Exam General Appearance: + pertinent finding (severely encephalopathic, slightly agitated, aged appearing) Head: normocephalic, atraumatic ENT: + pertinent finding (oral mucosa dry, no oral lesions) Neck: supple, no JVD Respiratory/Chest: no respiratory distress, no accessory muscle use Cardiovascular: regular rate, rhythm, no murmur Abdomen/GI: non tender, soft Genitourinary - Female: + pertinent finding ([place] draining yellow urine) Extremities/Musculoskelatal: + pertinent finding (generalized edema) Neurologic/Psych: + pertinent finding (not oriented, non verbal, does not follow commands) Family History Cancer Hypertension Social History Smokeless Tobacco Use: No Alcohol Use: occasionally Drug Use: none Marital Status: Occupation: employed Laboratory Results Past 24 Hours 02/05/17 17:56 02/06/17 07:34 Test 02/05/17 17:56 02/06/17 07:34 Anion Gap 11.0 mmol/L (3-11) 12.0 mmol/L (3-11) Est Creatinine Clear Calc Drug Dose 66.6 ml/min 63.6 ml/min Estimated GFR () 84.5 79.9 Estimated GFR (Non- 72.9 69.0 BUN/Creatinine Ratio 32.5 (10-20) 31.7 (10-20) Calcium Level 7.7 mg/dl (8.5-10.1) 8.4 mg/dl (8.5-10.1) Phosphorus Level 2.5 mg/dl (2.5-4.9) Magnesium Level 1.8 mg/dl (1.8-2.4) Total Bilirubin 2.8 mg/dl (0.2-1) Aspartate Amino Transf (AST/SGOT) 318 U/L (15-37) Alanine Aminotransferase (ALT/SGPT) 642 U/L (12-78) Alkaline Phosphatase 168 U/L (45-117) Ammonia 38.0 umol/L (11-32) Total Protein 6.1 gm/dl (6.4-8.2) Albumin 2.9 gm/dl (3.4-5.0) Globulin 3.2 gm/dl (2.5-4.0) Albumin/Globulin Ratio 0.9 (0.9-2) Allergies Coded Allergies: No Known Allergies (Verified , 01/05/17) Medications Current Inpatient Medications Medications (Trade) Dose Ordered Sig/Debbie Route Start Time Stop Time Status Last Admin Dose Admin Acetaminophen (Tylenol Tab) 650 mg Q4H PRN PO 01/26/17 14:30 02/25/17 14:29 Al Hydrox/Mg Hydrox/Simethicone (Maalox Max Susp) 15 ml Q4H PRN PO 01/26/17 14:30 02/25/17 14:29 Ondansetron HCl (Zofran Inj) 4 mg Q6H PRN IV 01/26/17 14:30 02/25/17 14:29 Atorvastatin Calcium (Lipitor Tab) 40 mg QAM PO 01/27/17 09:00 02/26/17 08:59 01/30/17 10:14 40 MG Escitalopram Oxalate (Lexapro Tab) 10 mg DAILY PO 01/27/17 09:00 02/26/17 08:59 02/05/17 08:48 10 MG Sucralfate (Carafate Tab) 1 gm ACHS PO 01/26/17 17:00 02/25/17 16:59 02/05/17 21:43 1 GM Nitroglycerin (Nitrostat Tab) 0.4 mg PRN PRN SL 01/26/17 15:00 02/25/17 14:59 Potassium Chloride (Klor-Con Tab) 40 meq QAM PO 01/27/17 09:00 02/26/17 08:59 01/30/17 10:13 40 MEQ Metoprolol Tartrate (Lopressor Iv) 5 mg Q6H PRN IV 01/27/17 15:30 02/26/17 08:29 01/30/17 13:01 5 MG Dextrose (Dextrose 50% 50ML Syringe) 25-50ML OF 50% DW IV FOR... UD PRN IV 01/27/17 13:00 02/26/17 12:59 Carvedilol (Coreg Tab) 6.25 mg BID PO 01/29/17 09:00 02/27/17 08:59 02/05/17 21:42 6.25 MG Lisinopril (Zestril Tab) 5 mg QAM PO 01/29/17 09:00 02/27/17 08:59 02/05/17 08:49 5 MG Lorazepam (Ativan Inj) 1 mg Q4H PRN IV 01/29/17 16:15 02/28/17 16:14 Lorazepam (Ativan Inj) 0.5 mg Q4H PRN IV 01/29/17 16:15 02/28/17 16:14 Nicotine (Nicoderm Cq 21MG Patch) 1 patch QAM TD 01/31/17 09:00 03/02/17 08:59 02/04/17 08:22 1 PATCH Miscellaneous (Remove Nicoderm Patch) 1 ea HS N/A 01/30/17 21:00 03/01/17 20:59 02/05/17 21:00 1 EA Hydrocortisone (Proctozone Hc 2.5% Crm) 1 appln Q8 PRN EXT 01/30/17 18:00 03/01/17 17:59 Ciprofloxacin/ Dextrose 400 mg/ Prmx 200 ml @ 100 mls/hr Q12 IV 02/02/17 11:30 02/12/17 11:29 Future Hold 02/05/17 08:40 100 MLS/HR Enteral Nutritional Formula (Boost Pudding) 1 cup TID PO 02/03/17 14:00 03/05/17 13:59 02/03/17 20:48 1 CUP Enoxaparin Sodium (Lovenox Inj) 40 mg QAM SQ 02/04/17 09:00 03/06/17 08:59 02/05/17 09:01 40 MG Aspirin (Aspirin Chew) 81 mg DAILY NG 02/05/17 09:30 03/07/17 09:29 02/05/17 10:13 81 MG Enteral Nutritional Formula (Fibersource HN) 1,000 ml UD PRN NG 02/05/17 10:30 03/07/17 10:29 02/05/17 12:00 1,000 ML Multivitamins Therapeutic (Cerovite Liquid) 15 ml DAILY@0900 NG 02/06/17 09:00 03/08/17 08:59 Thiamine HCl (Vitamin B-1 Tab) 100 mg DAILY@0900 NG 02/06/17 09:00 03/08/17 08:59 Future hold Folic Acid (Folvite Tab) 1 mg DAILY@0900 NG 02/06/17 09:00 03/08/17 08:59 Lansoprazole (Prevacid Solutab) 30 mg DAILY NG 02/06/17 09:00 03/08/17 08:59 Thiamine HCl (Vitamin B-1 Tab) 300 mg DAILY NG 02/06/17 09:00 02/08/17 09:01 Sterile Water (Tube Feeding Water Flush) 300 ea Q4 NG 02/05/17 20:00 03/07/17 11:59 02/05/17 20:00 300 EA Impression (1) Alcohol dependence (2) Alcohol withdrawal (3) Acute encephalopathy (4) Acute liver disease (5) Hypernatremia Mrs. Savanna Mercado is a 61-year-old female with acute hepatitis associated with chronic alcohol use. She has pronounced mental status changes. The patient has not been able to feed herself due to mental status changes. She has not tolerated oral feeding. She has pulled out her NGT twice. 1:1 at bedside. She has a free water deficit of approximately 2 liters. She has not been able to receive appropriate enteral water. I have ordered free water replacement via IV this morning. Recommendations -- Start D5w + KCl 40 mEq @ 100 ml/h -- Free water flushes via NGT decreased to 150 q 8 hr -- MVI to be given in liquid formulation via NGT -- Thiamine and folic acid to be given via NGT -- Restart TF as tolerated -- Repeat metabolic profile this afternoon -- No additional diuretics -- Minimize IVF once able
[2017-02-06] MEDS: POTASSIUM CHLORIDE INJ 40 MEQ in DEXTROSE 5% 1000ML 1,000 ML IV SCH ×2 (11:01→20:47)
[2017-02-06] MEDS: ENOXAPARIN 40 MG/0.4 ML SYR SQ SCH (11:16)
--- NOTE | 2017-02-06 11:19 | DIAGNOSTIC IMAGING REPORT ---
KUB HISTORY: Coresafe placement COMPARISON: KUB 02/06/2017. FINDINGS: The feeding tube is now within the body of the stomach. Small left pleural effusion. Left lower lobe consolidation. Patchy airspace opacities within the bilateral lungs. No renal calculi. No ureteral calculi. No pneumoperitoneum or pneumatosis. IMPRESSION: The feeding tube is within the body of the stomach. Electronically signed by: Obi Parada M.D. 02/06/2017 11:18 AM Dictated Date/Time: 02/06/2017 11:17 AM
--- NOTE | 2017-02-06 11:25 | EEG Procedure Note ---
EEG Procedure Note Date of Service Feb 06, 2017. Start / End Times Start Time: 10:34 AM End Time: 10:54 AM Referring Physician Hoda Palencia History This is a 61-year-old female with acute encephalopathy and unresponsiveness. EEG for further evaluation of seizure etiology and to rule out nonconvulsive status. Home Medication List Scheduled Atorvastatin (Lipitor), 40 MG PO QAM Escitalopram (Lexapro), 10 MG PO DAILY Omeprazole (Omeprazole), 20 MG PO BID Sucralfate (Carafate), 1 GM PO QID Inpatient Medication List Current Inpatient Medications Medications (Trade) Dose Ordered Sig/Debbie Route Start Time Stop Time Status Last Admin Dose Admin Acetaminophen (Tylenol Tab) 650 mg Q4H PRN PO 01/26/17 14:30 02/25/17 14:29 Al Hydrox/Mg Hydrox/Simethicone (Maalox Max Susp) 15 ml Q4H PRN PO 01/26/17 14:30 02/25/17 14:29 Ondansetron HCl (Zofran Inj) 4 mg Q6H PRN IV 01/26/17 14:30 02/25/17 14:29 Atorvastatin Calcium (Lipitor Tab) 40 mg QAM PO 01/27/17 09:00 02/26/17 08:59 01/30/17 10:14 40 MG Escitalopram Oxalate (Lexapro Tab) 10 mg DAILY PO 01/27/17 09:00 02/26/17 08:59 02/05/17 08:48 10 MG Sucralfate (Carafate Tab) 1 gm ACHS PO 01/26/17 17:00 02/25/17 16:59 02/05/17 21:43 1 GM Nitroglycerin (Nitrostat Tab) 0.4 mg PRN PRN SL 01/26/17 15:00 02/25/17 14:59 Potassium Chloride (Klor-Con Tab) 40 meq QAM PO 01/27/17 09:00 02/26/17 08:59 01/30/17 10:13 40 MEQ Metoprolol Tartrate (Lopressor Iv) 5 mg Q6H PRN IV 01/27/17 15:30 02/26/17 08:29 01/30/17 13:01 5 MG Dextrose (Dextrose 50% 50ML Syringe) 25-50ML OF 50% DW IV FOR... UD PRN IV 01/27/17 13:00 02/26/17 12:59 Carvedilol (Coreg Tab) 6.25 mg BID PO 01/29/17 09:00 02/27/17 08:59 02/05/17 21:42 6.25 MG Lisinopril (Zestril Tab) 5 mg QAM PO 01/29/17 09:00 02/27/17 08:59 02/05/17 08:49 5 MG Lorazepam (Ativan Inj) 1 mg Q4H PRN IV 01/29/17 16:15 02/28/17 16:14 Lorazepam (Ativan Inj) 0.5 mg Q4H PRN IV 01/29/17 16:15 02/28/17 16:14 Nicotine (Nicoderm Cq 21MG Patch) 1 patch QAM TD 01/31/17 09:00 03/02/17 08:59 02/04/17 08:22 1 PATCH Miscellaneous (Remove Nicoderm Patch) 1 ea HS N/A 01/30/17 21:00 03/01/17 20:59 02/05/17 21:00 1 EA Hydrocortisone (Proctozone Hc 2.5% Crm) 1 appln Q8 PRN EXT 01/30/17 18:00 03/01/17 17:59 Ciprofloxacin/ Dextrose 400 mg/ Prmx 200 ml @ 100 mls/hr Q12 IV 02/02/17 11:30 02/12/17 11:29 Future Hold 02/05/17 08:40 100 MLS/HR Enteral Nutritional Formula (Boost Pudding) 1 cup TID PO 02/03/17 14:00 03/05/17 13:59 02/03/17 20:48 1 CUP Enoxaparin Sodium (Lovenox Inj) 40 mg QAM SQ 02/04/17 09:00 03/06/17 08:59 02/06/17 11:16 40 MG Aspirin (Aspirin Chew) 81 mg DAILY NG 02/05/17 09:30 03/07/17 09:29 02/05/17 10:13 81 MG Enteral Nutritional Formula (Fibersource HN) 1,000 ml UD PRN NG 02/05/17 10:30 03/07/17 10:29 02/05/17 12:00 1,000 ML Multivitamins Therapeutic (Cerovite Liquid) 15 ml DAILY@0900 NG 02/06/17 09:00 03/08/17 08:59 Thiamine HCl (Vitamin B-1 Tab) 100 mg DAILY@0900 NG 02/06/17 09:00 03/08/17 08:59 Future hold Folic Acid (Folvite Tab) 1 mg DAILY@0900 NG 02/06/17 09:00 03/08/17 08:59 Lansoprazole (Prevacid Solutab) 30 mg DAILY NG 02/06/17 09:00 03/08/17 08:59 Thiamine HCl (Vitamin B-1 Tab) 300 mg DAILY NG 02/06/17 09:00 02/08/17 09:01 Sterile Water (Tube Feeding Water Flush) 150 ea Q8 NG 02/06/17 14:00 03/07/17 11:59 Potassium Chloride 40 meq/ Dextrose 1,020 ml @ 100 mls/hr [id number] IV 02/06/17 11:00 03/08/17 10:59 02/06/17 11:01 100 MLS/HR Description This is a 21 electrode EEG with a single channel dedicated to limited EKG. The electrodes were placed in accordance with the International 10-20 system. Fair to poor quality secondary to movement and muscle artifact. Hyperventilation and photic stimulation were not done secondary to mental status. At the start of this recording the patient was in altered mental status. Background was poorly organized with no anterior to posterior gradient. Background was composed of symmetric low to moderate amplitude predominantly 5 Hz theta frequencies with intermixed delta and rarely alpha frequencies. There was no state changes or sleep transients. Interpretation This is an abnormal routine EEG secondary to moderate background disorganization and slowing. There was no electrographic seizures or epileptiform discharges. Clinical Correlation This EEG indicates a moderate encephalopathy of nonspecific etiology. This EEG interpretation was slightly limited due to continuous movement and muscle artifact.
[2017-02-06] MEDS: FIBERSOURCE HN 1000ML BAG NG PRN ×2 (11:35)
[2017-02-06] MEDS: POTASSIUM CHLORIDE 20 MEQ TABCR PO SCH (11:36)
[2017-02-06] MEDS: ASPIRIN 81 MG CHEW NG SCH (11:38)
[2017-02-06] MEDS: ATORVASTATIN 40 MG TAB PO SCH (11:39)
[2017-02-06] MEDS: LANSOPRAZOLE SOLUTAB 30 MG NG SCH (11:40)
[2017-02-06] MEDS: MULTIVITAMINS W/MINERALS 15ML UDP NG SCH (11:42)
[2017-02-06] MEDS: THIAMINE HCL 100 MG TAB NG SCH (11:43)
[2017-02-06] MEDS: ESCITALOPRAM OXALATE 10 MG TAB PO SCH (11:43)
[2017-02-06 11:52] VITALS: BP 130/91; PULSE 91
[2017-02-06] MEDS: LISINOPRIL 5 MG TAB PO SCH (11:53)
[2017-02-06] MEDS: NICOTINE 21 MG/24 HR TDSY TD SCH (11:54)
[2017-02-06] MEDS: CARVEDILOL 6.25 MG TAB PO SCH ×2 (11:54→20:48)
--- NOTE | 2017-02-06 12:44 | Gastrointestinal Consultation ---
Gastrointestinal Consultation Date of Consultation: Feb 06, 2017 Attending Physician: Dr. Loja Consulting Physician: Dr. Bety Loera Reason for Consultation: "acute hepatitis" History of Present Illness Patient is a 61 year old female patient of Dr. Fulton with a hx of HTN, GERD, anxiety/depression, hyperlipidemia. She was brought to the ED by her on 01/26/17 for confusion, weakness. He reported that she has a hx alcoholism but that she has been drinking less recently. Since admission, [place] was ruled out but she did have some V-tach. She has been very confused and lethargic during this admission. On arrival, LFTs were normal. During her stay, she experienced significant transaminitis, with AST approx 2x the level of ALT. The timing of this elevation was approx a day after the episode of V-tach. The primary hospitalist service has had pt undergo RUQ ultrasound on 02/04 with moderate gallbaldder wall thickening, no stones or biliary ductal dilation. There is fatty liver present. She is Hep C negative. Pt is unable to provide a hx. She has not received care in the OP Gastro setting. Our prior contact with her was for EGD in 2009 for a duodenal ulcer. Past Medical/Surgical History Medical Problems: (1) Acute electrocardiogram changes Status: Acute (2) Dizziness Status: Acute (3) Elevated troponin Status: Acute (4) Hypokalemia Status: Acute (5) Hypomagnesemia Status: Acute (6) Weakness Status: Acute Past Medical History: 1. Duodenal ulcer. 2. Increased alcohol intake. 3. GERD 4. HTN 5. Anxiety/depression Past Surgical History: 1. Most recent EGD 05/27/[address] Finley for f/u peptic ulcer: scarring of the gastric antrum. H pylori bx (-). Family History Cancer Hypertension Social History Smoking Status: Current Every Day Smoker Alcohol Use: occasionally Drug Use: none Marital Status: Housing Status: lives with family Occupation Status: employed Allergies Coded Allergies: No Known Allergies (Verified , 01/05/17) Current Medications Home Meds and Scripts Medications Dose Route/Sig Max Daily Dose Days Date Category Carafate (Sucralfate) 1 Gm Tab 1 Gm PO QID 30 10/09/16 Reported Lexapro (Escitalopram Oxalate) 10 Mg Tab 10 Mg PO DAILY 10/06/16 Reported Lipitor (Atorvastatin Calcium) 40 Mg Tab 40 Mg PO QAM 2/9/17 Reported Omeprazole 20 Mg Tab 20 Mg PO BID 10/06/16 Reported Review of Systems Unable to obtain ROS from the patient - poor historian. Physical Exam Date Time Temp Pulse Resp B/P (MAP) Pulse Ox O2 Delivery O2 Flow Rate FiO2 02/06/17 11:52 91 130/91 (104) 02/06/17 07:02 36.4 28 135/85 (102) 93 Nasal Cannula 2.0 02/06/17 03:52 Nasal Cannula 2.0 02/05/17 22:51 36.3 74 18 111/74 (86) 94 Nasal Cannula 2.0 02/05/17 20:55 Nasal Cannula 2.0 02/05/17 16:00 Nasal Cannula 2.0 02/05/17 15:06 36.4 77 16 103/69 (80) 96 Nasal Cannula 2.0 General Appearance: no apparent distress Eyes: normal inspection, EOMI Neck: supple, no adenopathy, thyroid normal, no JVD Respiratory/Chest: chest non-tender, lungs clear, normal breath sounds, no accessory muscle use Cardiovascular: regular rate, rhythm, no JVD, no murmur Abdomen: normal bowel sounds, non tender, soft, no organomegaly Extremities: normal inspection, no pedal edema, normal capillary refill, + pertinent finding (mild peripheral edema/mild 3rd spacing) Neurologic/Psych: alert, + pertinent finding (Confused. Responsive to tactile and verbal stimulation but does not answer questions with any meaningful responses. ) Skin: normal color, no jaundice, warm/dry, no rash Laboratory Results Last 24 Hours Test 02/05/17 17:56 02/06/17 07:34 02/06/17 10:15 Sodium Level 153 mmol/L 152 mmol/L Potassium Level 4.3 mmol/L 3.4 mmol/L Chloride Level 118 mmol/L 117 mmol/L Carbon Dioxide Level 24 mmol/L 23 mmol/L Anion Gap 11.0 mmol/L 12.0 mmol/L Blood Urea Nitrogen 28 mg/dl 28 mg/dl Creatinine 0.85 mg/dl 0.89 mg/dl Est Creatinine Clear Calc Drug Dose 66.6 ml/min 63.6 ml/min Estimated GFR () 84.5 79.9 Estimated GFR (Non- 72.9 69.0 BUN/Creatinine Ratio 32.5 31.7 Random Glucose 120 mg/dl 124 mg/dl Calcium Level 7.7 mg/dl 8.4 mg/dl Phosphorus Level 2.5 mg/dl Magnesium Level 1.8 mg/dl Total Bilirubin 2.8 mg/dl Aspartate Amino Transf (AST/SGOT) 318 U/L Alanine Aminotransferase (ALT/SGPT) 642 U/L Alkaline Phosphatase 168 U/L Ammonia 38.0 umol/L Total Protein 6.1 gm/dl Albumin 2.9 gm/dl Globulin 3.2 gm/dl Albumin/Globulin Ratio 0.9 Impression Patient is a 61 year old female admitted for confusion. She has a hx of increased alcohol intake. Imaging is consistent with fatty liver. Her recent increase in LFTs is likely caused by ischemic hepatitis - precipitated by the episode of V-tach which likely decreased the blood flow/pressure in the liver, temporarily. Her LFTs are improving. Plan 1. Check CPK level. 2. Hold atorvastatin. 3. Viral serology to r/o Quin[place] Dailey, CMV, Hep A/B. 4. Follow LFTs daily. 5. Alcohol abstention. 6. Agree with enteral feedings. I saw and evalauted the patient with Ms. Allen. GI is consulted for evaluaiton of elevated liver tests and a history of heavy alcohol use. The patient is unable to give any history today, history obtained by review of records. Of note her LAE were normal on admission with a significant increase on 30 January after have sustained V Tach. PE: no abdominal tenderness, mild icterus. IMpression: HIstory and lab findings are most consistent with ischemic hepatitis related to her V Tach on the . Based on this I do not think her mental status changes are related to hepatic encephalopathy and would suggest further Neurologic evaluation. Recomenations Supportive care (serologies as above) consider neuro evaluation
[2017-02-06 16:44] LABS: BUN/CREATININE RATIO 33.7 (10-20); CALCIUM 8.2 mg/dl (8.5-10.1); CREATININE 0.85 mg/dl (0.60-1.20); POTASSIUM 3.9 mmol/L (3.5-5.1)
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
[2017-02-06] MEDS ORDERED: NURSING VERBAL MED ORDER ONE (18:30)
[2017-02-06] MEDS ORDERED: LORAZEPAM INJ 1 MG in SYRINGE 0.5 ML IV PRN (20:45)
[2017-02-06] MEDS ORDERED: LORAZEPAM INJ 0.5 MG in SYRINGE 0.75 ML IV PRN (20:45)
[2017-02-06] MEDS ORDERED: LORAZEPAM INJ 2 MG in SYRINGE 1 ML IV PRN (20:45)
[2017-02-06] MEDS: SUCRALFATE 1 GM/10 ML UDC PO SCH (20:49)
[2017-02-06 23:28] VITALS: BP 116/82; PULSE 80; TEMP 36.4; O2SAT 92
[2017-02-07] MEDS: SUCRALFATE 1 GM/10 ML UDC PO SCH ×4 (05:54→21:24)
[2017-02-07] MEDS: TUBE FEEDING WATER FLUSH NG SCH ×3 (05:55→21:25)
[2017-02-07] MEDS: POTASSIUM CHLORIDE INJ 40 MEQ in DEXTROSE 5% 1000ML 1,000 ML IV SCH ×2 (06:39→19:10)
[2017-02-07 07:10] VITALS: BP 102/75; PULSE 78; TEMP 36.6; O2SAT 91
[2017-02-07 07:19] LABS: BLOOD UREA NITROGEN 27 mg/dl (7-18); BUN/CREATININE RATIO 36.8 (10-20); CALCIUM 7.9 mg/dl (8.5-10.1); CARBON DIOXIDE 22 mmol/L (21-32); CHLORIDE 114 mmol/L (98-107); CREATININE 0.73 mg/dl (0.60-1.20); GLUCOSE 189 mg/dl (70-99); PHOSPHORUS 1.8 mg/dl (2.5-4.9); SODIUM 146 mmol/L (136-145)
[2017-02-07 08:00] VITALS: O2SAT 91
[2017-02-07] MEDS: BOOST VANILLA PUDDING CUP PO SCH ×3 (08:54→21:00)
[2017-02-07] MEDS: ESCITALOPRAM OXALATE 10 MG TAB PO SCH (08:58)
[2017-02-07] MEDS: ASPIRIN 81 MG CHEW NG SCH (08:58)
[2017-02-07] MEDS: ATORVASTATIN 40 MG TAB PO SCH (08:58)
[2017-02-07] MEDS: ENOXAPARIN 40 MG/0.4 ML SYR SQ SCH (08:58)
[2017-02-07] MEDS: NICOTINE 21 MG/24 HR TDSY TD SCH (08:58)
[2017-02-07] MEDS: LISINOPRIL 5 MG TAB PO SCH (08:59)
[2017-02-07] MEDS: CARVEDILOL 6.25 MG TAB PO SCH ×2 (08:59→21:25)
[2017-02-07] MEDS: POTASSIUM CHLORIDE 20 MEQ TABCR PO SCH (08:59)
[2017-02-07] MEDS: LANSOPRAZOLE SOLUTAB 30 MG NG SCH ×2 (09:00→09:04)
[2017-02-07] MEDS: THIAMINE HCL 100 MG TAB NG SCH (09:01)
[2017-02-07] MEDS: MULTIVITAMINS W/MINERALS 15ML UDP NG SCH (09:01)
[2017-02-07] MEDS ORDERED: SODIUM PHOSPHATE 3 MMOL/1 ML INFUSION IV STA (10:09)
--- NOTE | 2017-02-07 10:11 | Nephrology Progress Note ---
Nephrology Progress Note Date of Service Feb 07, 2017. Chief Complaint Hypernatremia Subjective Savanna remains severely encephalopathic. She does not respond appropriately to voice. She remains non verbal. She continues to pull out the NGT. 1:1 remains at the bedside. TF now running at 20 ml/hr. She is tolerating enteral feeding. She has mitts on and has intermittently required soft restraint for agitation. Review of Systems A complete review of systems was unable to be performed due to mental status changes. Vital Signs Last 8 Hrs Date Time Temp Pulse Resp B/P (MAP) Pulse Ox O2 Delivery O2 Flow Rate FiO2 02/07/17 07:10 36.6 78 18 102/75 (84) 91 Nasal Cannula 2.0 Last Recorded Weight Weight (Kilograms): 77.100 Physical Exam General Appearance: + mild distress, + thin Head: normocephalic, atraumatic Eyes: normal inspection, sclerae normal ENT: normal ENT inspection, + pertinent finding (oral mucosa dry, NGT intact) Neck: supple, no JVD Respiratory/Chest: normal breath sounds (anteriorly), no respiratory distress, no accessory muscle use Cardiovascular: regular rate, rhythm, no gallop Abdomen/GI: non tender, soft Extremities/Musculoskelatal: + pertinent finding (generalized edema) Neurologic/Psych: + pertinent finding (slightly agitated, severely encephalopathic, moving all extremities) Family History Cancer Hypertension Social History Smokeless Tobacco Use: No Alcohol Use: occasionally Drug Use: none Marital Status: Occupation: employed Laboratory Results Past 24 Hours 02/06/17 16:05 02/07/17 06:10 Test 02/06/17 16:05 02/07/17 06:10 02/07/17 08:00 Anion Gap 11.0 mmol/L (3-11) 10.0 mmol/L (3-11) Est Creatinine Clear Calc Drug Dose 66.6 ml/min 77.6 ml/min Estimated GFR () 84.5 101.6 Estimated GFR (Non- 72.9 87.7 BUN/Creatinine Ratio 33.7 (10-20) 36.8 (10-20) Calcium Level 8.2 mg/dl (8.5-10.1) 7.9 mg/dl (8.5-10.1) Chemistry Specimen Hemolysis Hepatitis B Surface Antigen NEG (NEG) Hepatitis C Antibody NEG (NEG) Phosphorus Level 1.8 mg/dl (2.5-4.9) Magnesium Level mg/dl (1.8-2.4) 2.0 mg/dl (1.8-2.4) Albumin 2.8 gm/dl (3.4-5.0) 2.9 gm/dl (3.4-5.0) Total Bilirubin 2.3 mg/dl (0.2-1) Direct Bilirubin 1.3 mg/dl (0-0.2) Aspartate Amino Transf (AST/SGOT) 178 U/L (15-37) Alanine Aminotransferase (ALT/SGPT) 553 U/L (12-78) Alkaline Phosphatase 186 U/L (45-117) Total Protein 6.3 gm/dl (6.4-8.2) Allergies Coded Allergies: No Known Allergies (Verified , 01/05/17) Medications Current Inpatient Medications Medications (Trade) Dose Ordered Sig/Debbie Route Start Time Stop Time Status Last Admin Dose Admin Acetaminophen (Tylenol Tab) 650 mg Q4H PRN PO 01/26/17 14:30 02/25/17 14:29 Al Hydrox/Mg Hydrox/Simethicone (Maalox Max Susp) 15 ml Q4H PRN PO 01/26/17 14:30 02/25/17 14:29 Ondansetron HCl (Zofran Inj) 4 mg Q6H PRN IV 01/26/17 14:30 02/25/17 14:29 Atorvastatin Calcium (Lipitor Tab) 40 mg QAM PO 01/27/17 09:00 02/26/17 08:59 02/07/17 08:58 40 MG Escitalopram Oxalate (Lexapro Tab) 10 mg DAILY PO 01/27/17 09:00 02/26/17 08:59 02/07/17 08:58 10 MG Nitroglycerin (Nitrostat Tab) 0.4 mg PRN PRN SL 01/26/17 15:00 02/25/17 14:59 Potassium Chloride (Klor-Con Tab) 40 meq QAM PO 01/27/17 09:00 02/26/17 08:59 02/07/17 08:59 40 MEQ Metoprolol Tartrate (Lopressor Iv) 5 mg Q6H PRN IV 01/27/17 15:30 02/26/17 08:29 01/30/17 13:01 5 MG Dextrose (Dextrose 50% 50ML Syringe) 25-50ML OF 50% DW IV FOR... UD PRN IV 01/27/17 13:00 02/26/17 12:59 Carvedilol (Coreg Tab) 6.25 mg BID PO 01/29/17 09:00 02/27/17 08:59 02/07/17 08:59 6.25 MG Lisinopril (Zestril Tab) 5 mg QAM PO 01/29/17 09:00 02/27/17 08:59 02/07/17 08:59 5 MG Lorazepam (Ativan Inj) 1 mg Q4H PRN IV 01/29/17 16:15 02/28/17 16:14 Lorazepam (Ativan Inj) 0.5 mg Q4H PRN IV 01/29/17 16:15 02/28/17 16:14 Nicotine (Nicoderm Cq 21MG Patch) 1 patch QAM TD 01/31/17 09:00 03/02/17 08:59 02/07/17 08:58 1 PATCH Miscellaneous (Remove Nicoderm Patch) 1 ea HS N/A 01/30/17 21:00 03/01/17 20:59 02/06/17 20:49 1 EA Hydrocortisone (Proctozone Hc 2.5% Crm) 1 appln Q8 PRN EXT 01/30/17 18:00 03/01/17 17:59 Ciprofloxacin/ Dextrose 400 mg/ Prmx 200 ml @ 100 mls/hr Q12 IV 02/02/17 11:30 02/12/17 11:29 Future Hold 02/05/17 08:40 100 MLS/HR Enteral Nutritional Formula (Boost Pudding) 1 cup TID PO 02/03/17 14:00 03/05/17 13:59 02/03/17 20:48 1 CUP Enoxaparin Sodium (Lovenox Inj) 40 mg QAM SQ 02/04/17 09:00 03/06/17 08:59 02/07/17 08:58 40 MG Aspirin (Aspirin Chew) 81 mg DAILY NG 02/05/17 09:30 03/07/17 09:29 02/07/17 08:58 81 MG Enteral Nutritional Formula (Fibersource HN) 1,000 ml UD PRN NG 02/05/17 10:30 03/07/17 10:29 02/06/17 11:35 1,000 ML Multivitamins Therapeutic (Cerovite Liquid) 15 ml DAILY@0900 NG 02/06/17 09:00 03/08/17 08:59 02/07/17 09:01 15 ML Thiamine HCl (Vitamin B-1 Tab) 100 mg DAILY@0900 NG 02/06/17 09:00 03/08/17 08:59 Future hold Folic Acid (Folvite Tab) 1 mg DAILY@0900 NG 02/06/17 09:00 03/08/17 08:59 02/07/17 08:58 1 MG Lansoprazole (Prevacid Solutab) 30 mg DAILY NG 02/06/17 09:00 03/08/17 08:59 02/07/17 09:04 30 MG Thiamine HCl (Vitamin B-1 Tab) 300 mg DAILY NG 02/06/17 09:00 02/08/17 09:01 02/07/17 09:01 300 MG Sterile Water (Tube Feeding Water Flush) 150 ea Q8 NG 02/06/17 14:00 03/07/17 11:59 02/07/17 05:55 150 EA Potassium Chloride 40 meq/ Dextrose 1,020 ml @ 80 mls/hr [id number] IV 02/06/17 11:00 03/08/17 10:59 02/07/17 06:39 100 MLS/HR Sucralfate (Carafate Susp) 1 gm ACHS PO 02/06/17 21:00 03/08/17 20:59 02/07/17 05:54 1 GM Lorazepam 1 mg/ Syringe 1 ml @ 1 mls/min Q4H PRN IV 02/06/17 20:45 03/08/17 20:44 Lorazepam 0.5 mg/ Syringe 1 ml @ 1 mls/min Q4H PRN IV 02/06/17 20:45 03/08/17 20:44 02/06/17 20:59 1 MLS/MIN Impression (1) Alcohol dependence (2) Alcohol withdrawal (3) Acute encephalopathy (4) Acute liver disease (5) Hypernatremia Mrs. Savanna Mercado is a 61-year-old female with acute alcoholic hepatitis associated with chronic alcohol use and dependence. She has pronounced mental status changes. The patient has not been able to feed herself due to mental status changes. She has not tolerated oral feeding. She has pulled out her NGT multiple times. TF now running at 20 ml/hr. 1:1 at bedside. Free water deficit improving with IV dextrose infusion. I will increase enteral water to 250 ml q 8 hrs. If she is able to tolerate enteral fluids and nutrition, IVF can be discontinued. Hypophosphatemia should be monitored closely at this time. Recommendations -- Continue D5w + KCl 40 mEq @ 80 ml/h pending appropriate enteral fluids and nutrition -- Free water flushes via NGT decreased to 250 q 8 hr -- MVI to be given in liquid formulation via NGT -- Thiamine and folic acid to be given via NGT -- NaPO4 30 mmol IV this morning -- Repeat metabolic profile this afternoon -- No additional diuretics -- Minimize IVF once able
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
[2017-02-07 10:42] LABS: POTASSIUM 4.7 mmol/L (3.5-5.1)
[2017-02-07] MEDS ORDERED: SODIUM PHOSPHATE INJ 30 MMOL in SODIUM CHLORIDE 0.9% 500ML 500 ML IV SCH (11:00)
--- NOTE | 2017-02-07 11:05 | Neurology Progress Notes ---
Neurology Progress Note Date of Service Feb 07, 2017. Subjective Follow-up for delirium The patient remains significantly confused, she is on one-to-one observation, agitated, and does not answer questions or follow commands The recently completed electroencephalogram reveals a moderate nonspecific encephalopathy. No epileptiform abnormalities. Objective Date Time Temp Pulse Resp B/P (MAP) Pulse Ox O2 Delivery O2 Flow Rate FiO2 02/07/17 07:10 36.6 78 18 102/75 (84) 91 Nasal Cannula 2.0 02/07/17 00:00 Nasal Cannula 2.0 02/06/17 23:28 36.4 80 15 116/82 (93) 92 Nasal Cannula 2.0 02/06/17 20:00 Ambu-Bag 2.0 02/06/17 16:00 Nasal Cannula 2.0 02/06/17 11:52 91 130/91 (104) Last 24 Hours Test 02/06/17 16:05 02/07/17 06:10 02/07/17 08:00 Sodium Level 151 mmol/L 146 mmol/L Potassium Level 3.9 mmol/L mmol/L 4.7 mmol/L Chloride Level 117 mmol/L 114 mmol/L Carbon Dioxide Level 23 mmol/L 22 mmol/L Anion Gap 11.0 mmol/L 10.0 mmol/L Blood Urea Nitrogen 29 mg/dl 27 mg/dl Creatinine 0.85 mg/dl 0.73 mg/dl Est Creatinine Clear Calc Drug Dose 66.6 ml/min 77.6 ml/min Estimated GFR () 84.5 101.6 Estimated GFR (Non- 72.9 87.7 BUN/Creatinine Ratio 33.7 36.8 Random Glucose 145 mg/dl 189 mg/dl Calcium Level 8.2 mg/dl 7.9 mg/dl Chemistry Specimen Hemolysis Hepatitis B Surface Antigen NEG Hepatitis C Antibody NEG Phosphorus Level 1.8 mg/dl Magnesium Level mg/dl 2.0 mg/dl Albumin 2.8 gm/dl 2.9 gm/dl Total Bilirubin 2.3 mg/dl Direct Bilirubin 1.3 mg/dl Aspartate Amino Transf (AST/SGOT) 178 U/L Alanine Aminotransferase (ALT/SGPT) 553 U/L Alkaline Phosphatase 186 U/L Total Protein 6.3 gm/dl Exam: As above, the patient is modestly agitated. She does not answer questions or follow commands. She spontaneously moans. No tremors or myoclonic movements observed. Current Inpatient Medications Medications (Trade) Dose Ordered Sig/Debbie Route Start Time Stop Time Status Last Admin Dose Admin Acetaminophen (Tylenol Tab) 650 mg Q4H PRN PO 01/26/17 14:30 02/25/17 14:29 Al Hydrox/Mg Hydrox/Simethicone (Maalox Max Susp) 15 ml Q4H PRN PO 01/26/17 14:30 02/25/17 14:29 Ondansetron HCl (Zofran Inj) 4 mg Q6H PRN IV 01/26/17 14:30 02/25/17 14:29 Atorvastatin Calcium (Lipitor Tab) 40 mg QAM PO 01/27/17 09:00 02/26/17 08:59 02/07/17 08:58 40 MG Escitalopram Oxalate (Lexapro Tab) 10 mg DAILY PO 01/27/17 09:00 02/26/17 08:59 02/07/17 08:58 10 MG Nitroglycerin (Nitrostat Tab) 0.4 mg PRN PRN SL 01/26/17 15:00 02/25/17 14:59 Potassium Chloride (Klor-Con Tab) 40 meq QAM PO 01/27/17 09:00 02/26/17 08:59 02/07/17 08:59 40 MEQ Metoprolol Tartrate (Lopressor Iv) 5 mg Q6H PRN IV 01/27/17 15:30 02/26/17 08:29 01/30/17 13:01 5 MG Dextrose (Dextrose 50% 50ML Syringe) 25-50ML OF 50% DW IV FOR... UD PRN IV 01/27/17 13:00 02/26/17 12:59 Carvedilol (Coreg Tab) 6.25 mg BID PO 01/29/17 09:00 02/27/17 08:59 02/07/17 08:59 6.25 MG Lisinopril (Zestril Tab) 5 mg QAM PO 01/29/17 09:00 02/27/17 08:59 02/07/17 08:59 5 MG Lorazepam (Ativan Inj) 1 mg Q4H PRN IV 01/29/17 16:15 02/28/17 16:14 Lorazepam (Ativan Inj) 0.5 mg Q4H PRN IV 01/29/17 16:15 02/28/17 16:14 Nicotine (Nicoderm Cq 21MG Patch) 1 patch QAM TD 01/31/17 09:00 03/02/17 08:59 02/07/17 08:58 1 PATCH Miscellaneous (Remove Nicoderm Patch) 1 ea HS N/A 01/30/17 21:00 03/01/17 20:59 02/06/17 20:49 1 EA Hydrocortisone (Proctozone Hc 2.5% Crm) 1 appln Q8 PRN EXT 01/30/17 18:00 03/01/17 17:59 Ciprofloxacin/ Dextrose 400 mg/ Prmx 200 ml @ 100 mls/hr Q12 IV 02/02/17 11:30 02/12/17 11:29 Future Hold 02/05/17 08:40 100 MLS/HR Enteral Nutritional Formula (Boost Pudding) 1 cup TID PO 02/03/17 14:00 03/05/17 13:59 02/03/17 20:48 1 CUP Enoxaparin Sodium (Lovenox Inj) 40 mg QAM SQ 02/04/17 09:00 03/06/17 08:59 02/07/17 08:58 40 MG Aspirin (Aspirin Chew) 81 mg DAILY NG 02/05/17 09:30 03/07/17 09:29 02/07/17 08:58 81 MG Enteral Nutritional Formula (Fibersource HN) 1,000 ml UD PRN NG 02/05/17 10:30 03/07/17 10:29 02/06/17 11:35 1,000 ML Multivitamins Therapeutic (Cerovite Liquid) 15 ml DAILY@0900 NG 02/06/17 09:00 03/08/17 08:59 02/07/17 09:01 15 ML Thiamine HCl (Vitamin B-1 Tab) 100 mg DAILY@0900 NG 02/06/17 09:00 03/08/17 08:59 Future hold Folic Acid (Folvite Tab) 1 mg DAILY@0900 NG 02/06/17 09:00 03/08/17 08:59 02/07/17 08:58 1 MG Lansoprazole (Prevacid Solutab) 30 mg DAILY NG 02/06/17 09:00 03/08/17 08:59 02/07/17 09:04 30 MG Thiamine HCl (Vitamin B-1 Tab) 300 mg DAILY NG 02/06/17 09:00 02/08/17 09:01 02/07/17 09:01 300 MG Potassium Chloride 40 meq/ Dextrose 1,020 ml @ 80 mls/hr [id number] IV 02/06/17 11:00 03/08/17 10:59 02/07/17 06:39 100 MLS/HR Sucralfate (Carafate Susp) 1 gm ACHS PO 02/06/17 21:00 03/08/17 20:59 02/07/17 05:54 1 GM Lorazepam 1 mg/ Syringe 1 ml @ 1 mls/min Q4H PRN IV 02/06/17 20:45 03/08/17 20:44 Lorazepam 0.5 mg/ Syringe 1 ml @ 1 mls/min Q4H PRN IV 02/06/17 20:45 03/08/17 20:44 02/06/17 20:59 1 MLS/MIN Sterile Water (Tube Feeding Water Flush) 250 ea Q8 NG 02/07/17 14:00 03/07/17 11:59 Sodium Phosphate 30 mmol/Sodium Chloride 510 ml @ 88 mls/hr TODAY@1100 IV 02/07/17 11:00 02/07/17 16:00 Impression This patient remains encephalopathic. She appears to have an agitated delirium. Suspect hepatic encephalopathy further complicated by chronic extensive cerebrovascular disease. Plan I would still recommend a brain MRI to exclude a recent stroke or other acute process. The patient is unable to tolerate brain MRI then a follow-up CT of the head should be completed. These recommendations were discussed with Prisca Hood, hospitalist physician' s salon assistant, at bedside this morning. There is no indication for an anticonvulsant at this time. Continue supportive medical care. Follow-up with results of imaging when available.
--- NOTE | 2017-02-07 11:45 | Gastroenterology Progress Note ---
Progress Note Date of Service: Feb 07, 2017 Subjective Pt evaluation today including: conversation w/ patient, physical exam, chart review, lab review, review of studies, review of inpatient medication list Ms. Mercado is a 61 yr old female admitted for falls, confusion. She has a hx of increased alcohol. LFTs peaked after an episode of V-tach, continuing to decrease today. She continues with confusion. RUQ US with fatty liver, no evidence of obstruction. Review of Systems ROS not obtained from pt - non verbal. Minimal response to tactile or verbal stimulation. NG tube in place, receiving a feeding. Medications Current Inpatient Medications Medications (Trade) Dose Ordered Sig/Debbie Route Start Time Stop Time Status Last Admin Dose Admin Acetaminophen (Tylenol Tab) 650 mg Q4H PRN PO 01/26/17 14:30 02/25/17 14:29 Al Hydrox/Mg Hydrox/Simethicone (Maalox Max Susp) 15 ml Q4H PRN PO 01/26/17 14:30 02/25/17 14:29 Ondansetron HCl (Zofran Inj) 4 mg Q6H PRN IV 01/26/17 14:30 02/25/17 14:29 Atorvastatin Calcium (Lipitor Tab) 40 mg QAM PO 01/27/17 09:00 02/26/17 08:59 02/07/17 08:58 40 MG Escitalopram Oxalate (Lexapro Tab) 10 mg DAILY PO 01/27/17 09:00 02/26/17 08:59 02/07/17 08:58 10 MG Nitroglycerin (Nitrostat Tab) 0.4 mg PRN PRN SL 01/26/17 15:00 02/25/17 14:59 Potassium Chloride (Klor-Con Tab) 40 meq QAM PO 01/27/17 09:00 02/26/17 08:59 02/07/17 08:59 40 MEQ Metoprolol Tartrate (Lopressor Iv) 5 mg Q6H PRN IV 01/27/17 15:30 02/26/17 08:29 01/30/17 13:01 5 MG Dextrose (Dextrose 50% 50ML Syringe) 25-50ML OF 50% DW IV FOR... UD PRN IV 01/27/17 13:00 02/26/17 12:59 Carvedilol (Coreg Tab) 6.25 mg BID PO 01/29/17 09:00 02/27/17 08:59 02/07/17 08:59 6.25 MG Lisinopril (Zestril Tab) 5 mg QAM PO 01/29/17 09:00 02/27/17 08:59 02/07/17 08:59 5 MG Lorazepam (Ativan Inj) 1 mg Q4H PRN IV 01/29/17 16:15 02/28/17 16:14 Lorazepam (Ativan Inj) 0.5 mg Q4H PRN IV 01/29/17 16:15 02/28/17 16:14 Nicotine (Nicoderm Cq 21MG Patch) 1 patch QAM TD 01/31/17 09:00 03/02/17 08:59 02/07/17 08:58 1 PATCH Miscellaneous (Remove Nicoderm Patch) 1 ea HS N/A 01/30/17 21:00 03/01/17 20:59 02/06/17 20:49 1 EA Hydrocortisone (Proctozone Hc 2.5% Crm) 1 appln Q8 PRN EXT 01/30/17 18:00 03/01/17 17:59 Ciprofloxacin/ Dextrose 400 mg/ Prmx 200 ml @ 100 mls/hr Q12 IV 02/02/17 11:30 02/12/17 11:29 Future Hold 02/05/17 08:40 100 MLS/HR Enteral Nutritional Formula (Boost Pudding) 1 cup TID PO 02/03/17 14:00 03/05/17 13:59 02/03/17 20:48 1 CUP Enoxaparin Sodium (Lovenox Inj) 40 mg QAM SQ 02/04/17 09:00 03/06/17 08:59 02/07/17 08:58 40 MG Aspirin (Aspirin Chew) 81 mg DAILY NG 02/05/17 09:30 03/07/17 09:29 02/07/17 08:58 81 MG Enteral Nutritional Formula (Fibersource HN) 1,000 ml UD PRN NG 02/05/17 10:30 03/07/17 10:29 02/06/17 11:35 1,000 ML Multivitamins Therapeutic (Cerovite Liquid) 15 ml DAILY@0900 NG 02/06/17 09:00 7/12/17 08:59 02/07/17 09:01 15 ML Thiamine HCl (Vitamin B-1 Tab) 100 mg DAILY@0900 NG 02/06/17 09:00 03/08/17 08:59 Future hold Folic Acid (Folvite Tab) 1 mg DAILY@0900 NG 02/06/17 09:00 03/08/17 08:59 02/07/17 08:58 1 MG Lansoprazole (Prevacid Solutab) 30 mg DAILY NG 02/06/17 09:00 03/08/17 08:59 02/07/17 09:04 30 MG Thiamine HCl (Vitamin B-1 Tab) 300 mg DAILY NG 02/06/17 09:00 02/08/17 09:01 02/07/17 09:01 300 MG Potassium Chloride 40 meq/ Dextrose 1,020 ml @ 80 mls/hr [id number] IV 02/06/17 11:00 03/08/17 10:59 02/07/17 06:39 100 MLS/HR Sucralfate (Carafate Susp) 1 gm ACHS PO 02/06/17 21:00 03/08/17 20:59 02/07/17 05:54 1 GM Lorazepam 1 mg/ Syringe 1 ml @ 1 mls/min Q4H PRN IV 02/06/17 20:45 03/08/17 20:44 Lorazepam 0.5 mg/ Syringe 1 ml @ 1 mls/min Q4H PRN IV 02/06/17 20:45 03/08/17 20:44 02/06/17 20:59 1 MLS/MIN Sterile Water (Tube Feeding Water Flush) 250 ea Q8 NG 02/07/17 14:00 03/07/17 11:59 Sodium Phosphate 30 mmol/Sodium Chloride 510 ml @ 88 mls/hr TODAY@1100 IV 02/07/17 11:00 02/07/17 16:00 Objective Vital Signs Date Time Temp Pulse Resp B/P (MAP) Pulse Ox O2 Delivery O2 Flow Rate FiO2 02/07/17 07:10 36.6 78 18 102/75 (84) 91 Nasal Cannula 2.0 02/07/17 00:00 Nasal Cannula 2.0 02/06/17 23:28 36.4 80 15 116/82 (93) 92 Nasal Cannula 2.0 02/06/17 20:00 Ambu-Bag 2.0 02/06/17 16:00 Nasal Cannula 2.0 02/06/17 11:52 91 130/91 (104) Physical Exam General Appearance: no apparent distress Neck: no JVD Respiratory/Chest: + crackles Cardiovascular: regular rate, rhythm, no murmur Abdomen: soft Extremities: non-tender Neurologic/Psych: + disoriented, + pertinent finding (minmally responsive) Skin: no jaundice Laboratory Results Last 24 Hours Test 02/06/17 16:05 02/07/17 06:10 02/07/17 08:00 Sodium Level 151 mmol/L 146 mmol/L Potassium Level 3.9 mmol/L mmol/L 4.7 mmol/L Chloride Level 117 mmol/L 114 mmol/L Carbon Dioxide Level 23 mmol/L 22 mmol/L Anion Gap 11.0 mmol/L 10.0 mmol/L Blood Urea Nitrogen 29 mg/dl 27 mg/dl Creatinine 0.85 mg/dl 0.73 mg/dl Est Creatinine Clear Calc Drug Dose 66.6 ml/min 77.6 ml/min Estimated GFR () 84.5 101.6 Estimated GFR (Non- 72.9 87.7 BUN/Creatinine Ratio 33.7 36.8 Random Glucose 145 mg/dl 189 mg/dl Calcium Level 8.2 mg/dl 7.9 mg/dl Chemistry Specimen Hemolysis Hepatitis B Surface Antigen NEG Hepatitis C Antibody NEG Phosphorus Level 1.8 mg/dl Magnesium Level mg/dl 2.0 mg/dl Albumin 2.8 gm/dl 2.9 gm/dl Total Bilirubin 2.3 mg/dl Direct Bilirubin 1.3 mg/dl Aspartate Amino Transf (AST/SGOT) 178 U/L Alanine Aminotransferase (ALT/SGPT) 553 U/L Alkaline Phosphatase 186 U/L Total Protein 6.3 gm/dl Assessment and Plan Ms. Mercado is a 61 yr old female with fatty liver disease. During this hospitalization she experienced transaminitis afternoon episode of V. tach most likely ischemic hepatitis. LFTs are improving. We'll continue to follow every 2 or 3 days until resolution. No evidence of cirrhosis on imaging, I saw and evaluated the patient with Ms. Allen. The presentation is most consistent with ischemic hepatitis, this is typically a self limited condition and should continue to improve with only conservative management. Please continue to monitory LAE and call with any questions or concerns.
[2017-02-07 14:53] VITALS: BP 107/78; PULSE 88; TEMP 36.4; O2SAT 97
[2017-02-07 21:26] VITALS: BP 117/84; PULSE 94
[2017-02-07 21:53] LABS: COLLECTION SAMPLE Venous; LEAD BLOOD <1 mcg/dL (<5)
[2017-02-07 23:09] VITALS: BP 92/64; PULSE 72; TEMP 36.3; O2SAT 93
[2017-02-07] MEDS: FIBERSOURCE HN 1000ML BAG NG PRN ×2 (23:27)
[2017-02-08] MEDS: TUBE FEEDING WATER FLUSH NG SCH ×3 (06:11→21:13)
[2017-02-08] MEDS: SUCRALFATE 1 GM/10 ML UDC PO SCH (06:11)
[2017-02-08] MEDS: ENOXAPARIN 40 MG/0.4 ML SYR SQ SCH (07:33)
[2017-02-08] MEDS: POTASSIUM CHLORIDE INJ 40 MEQ in DEXTROSE 5% 1000ML 1,000 ML IV SCH (07:34)
[2017-02-08 07:42] VITALS: BP 108/73; PULSE 81; TEMP 36.5; O2SAT 94
[2017-02-08 07:43] LABS: ALB/GLOB RATIO 0.8 (0.9-2); BUN/CREATININE RATIO 34.6 (10-20); CALCIUM 7.7 mg/dl (8.5-10.1); CREATININE 0.79 mg/dl (0.60-1.20); PHOSPHORUS 1.8 mg/dl (2.5-4.9); POTASSIUM 5.6 mmol/L (3.5-5.1)
[2017-02-08 08:00] VITALS: O2SAT 91
[2017-02-08] MEDS: THIAMINE HCL 100 MG TAB NG SCH (08:14)
[2017-02-08] MEDS: LANSOPRAZOLE SOLUTAB 30 MG NG SCH (08:15)
[2017-02-08] MEDS ORDERED: SODIUM POLYST. SULF SUSP 15G/60ML PO STA (08:15)
[2017-02-08] MEDS: CARVEDILOL 6.25 MG TAB PO SCH ×2 (08:16→21:13)
[2017-02-08] MEDS: MULTIVITAMINS W/MINERALS 15ML UDP NG SCH (08:17)
[2017-02-08] MEDS: BOOST VANILLA PUDDING CUP PO SCH ×3 (08:17→20:48)
[2017-02-08] MEDS: ASPIRIN 81 MG CHEW NG SCH (08:18)
[2017-02-08] MEDS: ESCITALOPRAM OXALATE 10 MG TAB PO SCH (08:18)
[2017-02-08] MEDS: NICOTINE 21 MG/24 HR TDSY TD SCH (08:18)
[2017-02-08] MEDS: LISINOPRIL 5 MG TAB PO SCH (08:18)
[2017-02-08] MEDS: ATORVASTATIN 40 MG TAB PO SCH (08:18)
--- NOTE | 2017-02-08 08:59 | Gastroenterology Progress Note ---
Progress Note Date of Service: Feb 08, 2017 Subjective Pt evaluation today including: conversation w/ patient, physical exam, chart review, lab review, review of studies, review of inpatient medication list Ms. Mercado is a 61 yr old female with a hx of HTN, GERD, anxiety/depression, hyperlipidemia admitted on 01/26/17 for confusion, weakness. Hx of heavy alcohol intake, continuing to drink until the time of this admission. Run of V-tach with acute, moderate rise in transaminases after (max ALT on 01/30 or 1448) now decreasing x 4 days. RUQ w/o obstruction. Now unresponsive, obtunded. Review of Systems Constitutional: No fever Respiratory: No cough unable to obtain ROS from the pt. Medications Current Inpatient Medications Medications (Trade) Dose Ordered Sig/Debbie Route Start Time Stop Time Status Last Admin Dose Admin Acetaminophen (Tylenol Tab) 650 mg Q4H PRN PO 01/26/17 14:30 02/25/17 14:29 Al Hydrox/Mg Hydrox/Simethicone (Maalox Max Susp) 15 ml Q4H PRN PO 01/26/17 14:30 02/25/17 14:29 Ondansetron HCl (Zofran Inj) 4 mg Q6H PRN IV 01/26/17 14:30 02/25/17 14:29 Atorvastatin Calcium (Lipitor Tab) 40 mg QAM PO 01/27/17 09:00 02/26/17 08:59 02/08/17 08:18 40 MG Escitalopram Oxalate (Lexapro Tab) 10 mg DAILY PO 01/27/17 09:00 02/26/17 08:59 02/08/17 08:18 10 MG Nitroglycerin (Nitrostat Tab) 0.4 mg PRN PRN SL 01/26/17 15:00 02/25/17 14:59 Metoprolol Tartrate (Lopressor Iv) 5 mg Q6H PRN IV 01/27/17 15:30 02/26/17 08:29 01/30/17 13:01 5 MG Dextrose (Dextrose 50% 50ML Syringe) 25-50ML OF 50% DW IV FOR... UD PRN IV 01/27/17 13:00 02/26/17 12:59 Carvedilol (Coreg Tab) 6.25 mg BID PO 01/29/17 09:00 02/27/17 08:59 02/08/17 08:16 6.25 MG Lisinopril (Zestril Tab) 5 mg QAM PO 01/29/17 09:00 02/27/17 08:59 02/08/17 08:18 5 MG Lorazepam (Ativan Inj) 1 mg Q4H PRN IV 01/29/17 16:15 02/28/17 16:14 Lorazepam (Ativan Inj) 0.5 mg Q4H PRN IV 01/29/17 16:15 02/28/17 16:14 Nicotine (Nicoderm Cq 21MG Patch) 1 patch QAM TD 01/31/17 09:00 03/02/17 08:59 02/08/17 08:18 1 PATCH Miscellaneous (Remove Nicoderm Patch) 1 ea HS N/A 01/30/17 21:00 03/01/17 20:59 02/07/17 21:23 1 EA Hydrocortisone (Proctozone Hc 2.5% Crm) 1 appln Q8 PRN EXT 01/30/17 18:00 03/01/17 17:59 Enteral Nutritional Formula (Boost Pudding) 1 cup TID PO 02/03/17 14:00 03/05/17 13:59 02/03/17 20:48 1 CUP Enoxaparin Sodium (Lovenox Inj) 40 mg QAM SQ 02/04/17 09:00 03/06/17 08:59 02/08/17 07:33 40 MG Aspirin (Aspirin Chew) 81 mg DAILY NG 02/05/17 09:30 03/07/17 09:29 02/08/17 08:18 81 MG Enteral Nutritional Formula (Fibersource HN) 1,000 ml UD PRN NG 02/05/17 10:30 03/07/17 10:29 02/07/17 23:27 1,000 ML Multivitamins Therapeutic (Cerovite Liquid) 15 ml DAILY@0900 NG 02/06/17 09:00 03/08/17 08:59 02/08/17 08:17 15 ML Thiamine HCl (Vitamin B-1 Tab) 100 mg DAILY@0900 NG 02/06/17 09:00 03/08/17 08:59 Future hold Folic Acid (Folvite Tab) 1 mg DAILY@0900 NG 02/06/17 09:00 03/08/17 08:59 02/08/17 08:16 1 MG Lansoprazole (Prevacid Solutab) 30 mg DAILY NG 02/06/17 09:00 03/08/17 08:59 02/08/17 08:15 30 MG Thiamine HCl (Vitamin B-1 Tab) 300 mg DAILY NG 02/06/17 09:00 02/08/17 09:01 02/08/17 08:14 300 MG Sucralfate (Carafate Susp) 1 gm ACHS PO 02/06/17 21:00 03/08/17 20:59 02/08/17 06:11 1 GM Lorazepam 1 mg/ Syringe 1 ml @ 1 mls/min Q4H PRN IV 02/06/17 20:45 03/08/17 20:44 Lorazepam 0.5 mg/ Syringe 1 ml @ 1 mls/min Q4H PRN IV 02/06/17 20:45 03/08/17 20:44 02/06/17 20:59 1 MLS/MIN Sterile Water (Tube Feeding Water Flush) 250 ea Q8 NG 02/07/17 14:00 03/07/17 11:59 02/08/17 06:11 250 EA Objective Vital Signs Date Time Temp Pulse Resp B/P (MAP) Pulse Ox O2 Delivery O2 Flow Rate FiO2 02/08/17 07:42 36.5 81 16 108/73 (85) 94 Room Air 02/08/17 00:00 Nasal Cannula 2.0 02/07/17 23:09 36.3 72 20 92/64 (73) 93 Nasal Cannula 2.0 02/07/17 21:26 94 117/84 (95) 02/07/17 16:00 Nasal Cannula 2.0 02/07/17 14:53 36.4 88 20 107/78 (88) 97 Nasal Cannula 2.0 Physical Exam General Appearance: no apparent distress Neck: no JVD Respiratory/Chest: + crackles Cardiovascular: regular rate, rhythm, no JVD, no murmur Abdomen: non tender, soft Extremities: + swelling (1 plus bilateral edema) Neurologic/Psych: alert, normal mood/affect, oriented x 3 Skin: no jaundice Laboratory Results Last 24 Hours Test 02/08/17 06:53 Sodium Level 143 mmol/L Potassium Level 5.6 mmol/L Chloride Level 113 mmol/L Carbon Dioxide Level 22 mmol/L Anion Gap 8.0 mmol/L Blood Urea Nitrogen 27 mg/dl Creatinine 0.79 mg/dl Est Creatinine Clear Calc Drug Dose 71.7 ml/min Estimated GFR () 92.3 Estimated GFR (Non- 79.7 BUN/Creatinine Ratio 34.6 Random Glucose 167 mg/dl Calcium Level 7.7 mg/dl Phosphorus Level 1.8 mg/dl Total Bilirubin 1.9 mg/dl Aspartate Amino Transf (AST/SGOT) 128 U/L Alanine Aminotransferase (ALT/SGPT) 433 U/L Alkaline Phosphatase 260 U/L Ammonia 48.0 umol/L Total Protein 6.3 gm/dl Albumin 2.7 gm/dl Globulin 3.6 gm/dl Albumin/Globulin Ratio 0.8 Assessment and Plan Ms. Mercado is a 61 yr old female with fatty liver disease. During this hospitalization she experienced transaminitis after an episode of V. tach most likely ischemic hepatitis. LFTs are improving. No sign of cirrhosis by imaging and her platelets are normal. Her neurological status is not caused by hepatic encephalopathy. 1. Will stop the Carafate. Though she has a hx of duodenal ulcer in 2009, she is on Prevacid daily. Nursing tells me that Carafate is clogging the feeding tube. 2. GI will sign off. Please notify us of new/worrisome GI issues. I saw and evaluated the patient with Ms. Allen. History consistent with ischemic hepatitis which appears to be improving slowly. Please continue with present managment and call with any further questions / concerns.
--- NOTE | 2017-02-08 09:46 | DIAGNOSTIC IMAGING REPORT ---
HEAD CT NONCONTRAST CT DOSE: 1102.02 mGycm HISTORY: Unresponsive. R/O CVA TECHNIQUE: Multiaxial CT images of the head were performed without the use of intravenous contrast. Automated exposure control was utilized for this study. Comparison: None. Findings: Motion artifact. The paranasal sinuses and mastoid air cells are clear. The calvarium and skull base are intact. There is no mass, hematoma, midline shift, acute infarct. White matter hypodensity is nonspecific but suggestive of microvascular ischemic change. The ventricles and sulci demonstrate mild age-related involutional changes. Impression: Motion artifact. No definite acute intracranial abnormality. Electronically signed by: Obi Parada M.D. 02/08/2017 9:45 AM Dictated Date/Time: 02/08/2017 9:36 AM
[2017-02-08] MEDS ORDERED: SODIUM PHOSPHATE 3 MMOL/1 ML INFUSION IV STA (09:52)
--- NOTE | 2017-02-08 09:52 | Nephrology Progress Note ---
Nephrology Progress Note Date of Service Feb 08, 2017. Chief Complaint Hypernatremia Subjective No significant interval change. Savanna is less active this morning. 1:1 remains at the bedside. Patient remains non verbal. She does not follow commands. TF running at 40 ml/hr. Taken for head CT this morning. No fevers or chills. Review of Systems A complete review of systems was not able to be performed due to encephalopathy Vital Signs Last 8 Hrs Date Time Temp Pulse Resp B/P (MAP) Pulse Ox O2 Delivery O2 Flow Rate FiO2 02/08/17 07:42 36.5 81 16 108/73 (85) 94 Room Air Last Recorded Weight Weight (Kilograms): 77.100 Physical Exam General Appearance: + thin, + pertinent finding (profoundly encephalopathic) Head: normocephalic, atraumatic Eyes: normal inspection, sclerae normal ENT: + pertinent finding (Oral mucosa dry, NGT intact) Neck: supple, no JVD Respiratory/Chest: no respiratory distress, no accessory muscle use, + decreased breath sounds Cardiovascular: regular rate, rhythm, no gallop, + systolic murmur Abdomen/GI: non tender, soft Genitourinary - Female: + pertinent finding (Acosta draining concentrated urine) Extremities/Musculoskelatal: normal inspection, + pertinent finding ( Generalized and dependent edema) Neurologic/Psych: + disoriented, + pertinent finding (Non verbal, does not respond appropriately to voice or follow commands, no purposeful movement) Family History Cancer Hypertension Social History Smokeless Tobacco Use: No Alcohol Use: occasionally Drug Use: none Marital Status: Occupation: employed Laboratory Results Past 24 Hours 02/08/17 06:53 Test 02/08/17 06:53 Anion Gap 8.0 mmol/L (3-11) Est Creatinine Clear Calc Drug Dose 71.7 ml/min Estimated GFR () 92.3 Estimated GFR (Non- 79.7 BUN/Creatinine Ratio 34.6 (10-20) Calcium Level 7.7 mg/dl (8.5-10.1) Phosphorus Level 1.8 mg/dl (2.5-4.9) Total Bilirubin 1.9 mg/dl (0.2-1) Aspartate Amino Transf (AST/SGOT) 128 U/L (15-37) Alanine Aminotransferase (ALT/SGPT) 433 U/L (12-78) Alkaline Phosphatase 260 U/L (45-117) Ammonia 48.0 umol/L (11-32) Total Protein 6.3 gm/dl (6.4-8.2) Albumin 2.7 gm/dl (3.4-5.0) Globulin 3.6 gm/dl (2.5-4.0) Albumin/Globulin Ratio 0.8 (0.9-2) Allergies Coded Allergies: No Known Allergies (Verified , 01/05/17) Medications Current Inpatient Medications Medications (Trade) Dose Ordered Sig/Debbie Route Start Time Stop Time Status Last Admin Dose Admin Acetaminophen (Tylenol Tab) 650 mg Q4H PRN PO 01/26/17 14:30 02/25/17 14:29 Al Hydrox/Mg Hydrox/Simethicone (Maalox Max Susp) 15 ml Q4H PRN PO 01/26/17 14:30 02/25/17 14:29 Ondansetron HCl (Zofran Inj) 4 mg Q6H PRN IV 01/26/17 14:30 02/25/17 14:29 Atorvastatin Calcium (Lipitor Tab) 40 mg QAM PO 01/27/17 09:00 02/26/17 08:59 02/08/17 08:18 40 MG Escitalopram Oxalate (Lexapro Tab) 10 mg DAILY PO 01/27/17 09:00 02/26/17 08:59 02/08/17 08:18 10 MG Nitroglycerin (Nitrostat Tab) 0.4 mg PRN PRN SL 01/26/17 15:00 02/25/17 14:59 Metoprolol Tartrate (Lopressor Iv) 5 mg Q6H PRN IV 01/27/17 15:30 02/26/17 08:29 01/30/17 13:01 5 MG Dextrose (Dextrose 50% 50ML Syringe) 25-50ML OF 50% DW IV FOR... UD PRN IV 01/27/17 13:00 02/26/17 12:59 Carvedilol (Coreg Tab) 6.25 mg BID PO 01/29/17 09:00 02/27/17 08:59 02/08/17 08:16 6.25 MG Lisinopril (Zestril Tab) 5 mg QAM PO 01/29/17 09:00 02/27/17 08:59 02/08/17 08:18 5 MG Lorazepam (Ativan Inj) 1 mg Q4H PRN IV 01/29/17 16:15 02/28/17 16:14 Lorazepam (Ativan Inj) 0.5 mg Q4H PRN IV 01/29/17 16:15 02/28/17 16:14 Nicotine (Nicoderm Cq 21MG Patch) 1 patch QAM TD 01/31/17 09:00 03/02/17 08:59 02/08/17 08:18 1 PATCH Miscellaneous (Remove Nicoderm Patch) 1 ea HS N/A 01/30/17 21:00 03/01/17 20:59 02/07/17 21:23 1 EA Hydrocortisone (Proctozone Hc 2.5% Crm) 1 appln Q8 PRN EXT 01/30/17 18:00 03/01/17 17:59 Enteral Nutritional Formula (Boost Pudding) 1 cup TID PO 02/03/17 14:00 03/05/17 13:59 02/03/17 20:48 1 CUP Enoxaparin Sodium (Lovenox Inj) 40 mg QAM SQ 02/04/17 09:00 03/06/17 08:59 02/08/17 07:33 40 MG Aspirin (Aspirin Chew) 81 mg DAILY NG 02/05/17 09:30 03/07/17 09:29 02/08/17 08:18 81 MG Enteral Nutritional Formula (Fibersource HN) 1,000 ml UD PRN NG 02/05/17 10:30 03/07/17 10:29 02/07/17 23:27 1,000 ML Multivitamins Therapeutic (Cerovite Liquid) 15 ml DAILY@0900 NG 02/06/17 09:00 03/08/17 08:59 02/08/17 08:17 15 ML Thiamine HCl (Vitamin B-1 Tab) 100 mg DAILY@0900 NG 02/06/17 09:00 03/08/17 08:59 Future hold Folic Acid (Folvite Tab) 1 mg DAILY@0900 NG 02/06/17 09:00 03/08/17 08:59 02/08/17 08:16 1 MG Lansoprazole (Prevacid Solutab) 30 mg DAILY NG 02/06/17 09:00 03/08/17 08:59 02/08/17 08:15 30 MG Lorazepam 1 mg/ Syringe 1 ml @ 1 mls/min Q4H PRN IV 02/06/17 20:45 03/08/17 20:44 Lorazepam 0.5 mg/ Syringe 1 ml @ 1 mls/min Q4H PRN IV 02/06/17 20:45 03/08/17 20:44 02/06/17 20:59 1 MLS/MIN Sterile Water (Tube Feeding Water Flush) 250 ea Q8 NG 02/07/17 14:00 03/07/17 11:59 02/08/17 06:11 250 EA Impression (1) Alcohol dependence (2) Alcohol withdrawal (3) Acute encephalopathy (4) Acute liver disease (5) Hypernatremia Savanna Mercado is a 61-year-old female with acute alcoholic hepatitis associated with chronic alcohol use and dependence. She has pronounced mental status changes. Etiology unclear but suspect agitated delirium possibly attributed to ischemic injury, hepatic encephalopathy further complicated by chronic extensive cerebrovascular disease. She remains 100% dependent. There has been no sign of recovery. She is tolerating TF at 40 ml/hr. 1:1 at bedside. Free water deficit improved. IVF discontinued this morning. Hyperkalemia noted following replacement. IV and oral potassium stopped. Will monitor. If persistent or increasing a loop diuretic may assist with kaluresis. Kayexalate was given this morning. Continue enteral water to 250 ml q 8 hrs. Hypophosphatemia remains a concern. Additional 40 mmol NaPO4 ordered for this morning. Recommendations -- Stop D5w + KCl -- Free water via NGT 250 q 8 hr -- NaPO4 40 mmol IV this morning -- Monitor metabolic profile with PO4 BID -- Minimize IVF once able -- Stop ACEi if BP remains low, potassium remains elevated or renal function worsening
[2017-02-08] MEDS ORDERED: SODIUM PHOSPHATE INJ 40 MMOL in SODIUM CHLORIDE 0.9% 1000ML 1,000 ML IV SCH (10:30)
[2017-02-08] MEDS ORDERED: PIPERACILL/TAZOBAC IV 4.5 GM in DEXTROSE 5% 100ML 100 ML IV SCH (14:00)
--- NOTE | 2017-02-08 14:01 | DIAGNOSTIC IMAGING REPORT ---
CHEST ONE VIEW PORTABLE CLINICAL HISTORY: Tachypnea COMPARISON STUDY: 02/05/2017 FINDINGS: The heart is enlarged. There are bilateral pulmonary airspace opacities right greater than left. There is a nasogastric tube within the stomach. Small subpulmonic pleural effusions are suspected.[ IMPRESSION: Slight progression in the extensive bilateral pulmonary airspace opacities. There are left lower lobe air bronchograms. Small pleural effusions are suspected. Electronically signed by: Kg Doran M.D. 02/08/2017 2:00 PM Dictated Date/Time: 02/08/2017 1:58 PM
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
[2017-02-08] MEDS ORDERED: PIPERACILL/TAZOBAC CONSULT ACTIVE PRN (14:15)
[2017-02-08] MEDS ORDERED: PIPERACILL/TAZOBAC IV 3.375 GM in DEXTROSE 5% 100ML IV ONE (15:00)
[2017-02-08 16:00] VITALS: BP 95/65; PULSE 67; TEMP 36.5; O2SAT 96
[2017-02-08 16:03] LABS: ARTERIAL BLD GAS O2 SATURATION 91.2 % (90-95); ARTERIAL BLOOD GAS BASE EXCESS -1.2 mEq/L (-9-1.8); ARTERIAL BLOOD GAS HCO3 23 mmol/L (19-24); ARTERIAL BLOOD GAS PO2 67 mm/Hg (80-95); ARTERIAL BLOOD GAS pH 7.42 (7.35-7.45)
[2017-02-08 16:17] LABS: ALLEN TEST POS (POS); O2 ADMINISTRATION 2L
[2017-02-08 16:34] LABS: BUN/CREATININE RATIO 38.1 (10-20); CALCIUM 7.3 mg/dl (8.5-10.1); CREATININE 0.67 mg/dl (0.60-1.20); PHOSPHORUS 2.8 mg/dl (2.5-4.9); POTASSIUM 5.1 mmol/L (3.5-5.1)
[2017-02-08] MEDS: FIBERSOURCE HN 1000ML BAG NG PRN ×2 (19:13)
[2017-02-08] MEDS: PIPERACILL/TAZOBAC IV 3.375 GM in DEXTROSE 5% 100ML IV SCH (20:48)
--- NOTE | 2017-02-08 20:48 | DIAGNOSTIC IMAGING REPORT ---
MRI OF THE BRAIN WITHOUT AND WITH IV CONTRAST CLINICAL HISTORY: encephalopathy mental status change COMPARISON STUDY: No previous studies for comparison. TECHNIQUE: Utilizing a 1.5 Genny magnet and dedicated coil, multiplanar, multiecho imaging of the brain was performed pre and postcontrast administration. IV administration of 8.5 mL of Gadavist contrast was uneventful. FINDINGS: Atrophy. Considerable chronic small vessel change throughout both cerebral hemispheres. Mild compensatory hydrocephalus. No deviation of midline structures. No postcontrast enhancement. Sella and parasellar regions are unremarkable. Moderate mucosal thickening of the mastoid air cells. IMPRESSION: 1. No acute process. 2. Atrophy. 3. Considerable chronic small vessel change. 4. No abnormal postcontrast enhancement. Electronically signed by: Sundar Benson M.D. 02/08/2017 8:47 PM Dictated Date/Time: 02/08/2017 8:44 PM
[2017-02-08 21:10] VITALS: BP 102/71; PULSE 79
[2017-02-08 23:01] VITALS: BP 90/61; PULSE 72; TEMP 36.5; O2SAT 95
[2017-02-09] MEDS: PIPERACILL/TAZOBAC IV 3.375 GM in DEXTROSE 5% 100ML IV SCH ×3 (03:24→20:17)
[2017-02-09] MEDS: TUBE FEEDING WATER FLUSH NG SCH ×3 (05:34→21:51)
[2017-02-09 07:15] VITALS: BP 115/75; PULSE 77; TEMP 36; O2SAT 98
[2017-02-09 08:00] VITALS: O2SAT 98
[2017-02-09 08:01] LABS: BUN/CREATININE RATIO 40.3 (10-20); CALCIUM 7.5 mg/dl (8.5-10.1); CREATININE 0.63 mg/dl (0.60-1.20); POTASSIUM 4.6 mmol/L (3.5-5.1)
[2017-02-09 08:02] LABS: PHOSPHORUS 2.7 mg/dl (2.5-4.9)
[2017-02-09] MEDS: BOOST VANILLA PUDDING CUP PO SCH ×3 (09:00→21:00)
[2017-02-09] MEDS: THIAMINE HCL 100 MG TAB NG SCH (09:16)
[2017-02-09] MEDS: ESCITALOPRAM OXALATE 10 MG TAB PO SCH (09:16)
[2017-02-09] MEDS: ENOXAPARIN 40 MG/0.4 ML SYR SQ SCH (09:16)
[2017-02-09] MEDS: MULTIVITAMINS W/MINERALS 15ML UDP NG SCH (09:18)
[2017-02-09] MEDS: ASPIRIN 81 MG CHEW NG SCH (09:18)
[2017-02-09] MEDS: LISINOPRIL 5 MG TAB PO SCH (09:18)
[2017-02-09] MEDS: CARVEDILOL 6.25 MG TAB PO SCH ×2 (09:19→21:50)
[2017-02-09] MEDS: ATORVASTATIN 40 MG TAB PO SCH (09:19)
[2017-02-09] MEDS: NICOTINE 21 MG/24 HR TDSY TD SCH (09:19)
[2017-02-09] MEDS: LANSOPRAZOLE SOLUTAB 30 MG NG SCH (09:19)
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
--- NOTE | 2017-02-09 12:39 | Nephrology Progress Note ---
Nephrology Progress Note Date of Service Feb 09, 2017. Chief Complaint Hypernatremia Subjective No acute events overnight. Savanna was seen and evaluated in her hospital room this morning. She is more awake and alert this morning. She is speaking but remains confused. 1:1 remains at the bedside as patient continues to pull at NGT. TF running at goal. No urinary complaints. No fevers or chills. MRI documented significant small vessel chronic changes but no acute abnormality. Review of Systems A complete review of systems was performed. Pertinent positives are noted above. All other systems are negative. Vital Signs Last 8 Hrs Date Time Temp Pulse Resp B/P (MAP) Pulse Ox O2 Delivery O2 Flow Rate FiO2 02/09/17 08:00 98 Nasal Cannula 2.0 02/09/17 07:15 36.0 77 16 115/75 (88) 98 Nasal Cannula 2.0 Last Recorded Weight Weight (Kilograms): 77.100 Physical Exam General Appearance: + thin, + pertinent finding (elderly appearing 61-year-old , no acute distress) Head: normocephalic, atraumatic Eyes: normal inspection, sclerae normal ENT: normal ENT inspection, + pertinent finding (oral mucosa dry) Neck: supple, no JVD Respiratory/Chest: lungs clear, no respiratory distress, no accessory muscle use Cardiovascular: regular rate, rhythm, no gallop, no murmur Abdomen/GI: non tender, soft Extremities/Musculoskelatal: normal inspection, + pedal edema (dependent) Neurologic/Psych: + disoriented, + pertinent finding (more alert this morning, acknowledges that she is in the hospital) Family History Cancer Hypertension Social History Smokeless Tobacco Use: No Alcohol Use: occasionally Drug Use: none Marital Status: Occupation: employed Laboratory Results Past 24 Hours 02/08/17 15:53 02/09/17 07:03 Test 02/08/17 15:53 02/09/17 07:03 02/09/17 07:27 Arterial Blood pH 7.42 (7.35-7.45) Arterial Blood Partial Pressure CO2 36 mmHg (35-46) Arterial Blood Partial Pressure O2 67 mm/Hg (80-95) Arterial Blood HCO3 23 mmol/L (19-24) Arterial Blood Oxygen Saturation 91.2 % (90-95) Arterial Blood Base Excess -1.2 mEq/L (-9-1.8) Arterial Blood Gas Delivery 2L Josr Test POS (POS) Anion Gap 7.0 mmol/L (3-11) 8.0 mmol/L (3-11) Est Creatinine Clear Calc Drug Dose 84.5 ml/min 89.9 ml/min Estimated GFR () 108.4 110.6 Estimated GFR (Non- 93.5 95.5 BUN/Creatinine Ratio 38.1 (10-20) 40.3 (10-20) Calcium Level 7.3 mg/dl (8.5-10.1) 7.5 mg/dl (8.5-10.1) Phosphorus Level 2.8 mg/dl (2.5-4.9) 2.7 mg/dl (2.5-4.9) Albumin 2.4 gm/dl (3.4-5.0) 2.5 gm/dl (3.4-5.0) Bedside Glucose 159 mg/dl (70-90) Allergies Coded Allergies: No Known Allergies (Verified , 01/05/17) Medications Current Inpatient Medications Medications (Trade) Dose Ordered Sig/Debbie Route Start Time Stop Time Status Last Admin Dose Admin Acetaminophen (Tylenol Tab) 650 mg Q4H PRN PO 01/26/17 14:30 02/25/17 14:29 Al Hydrox/Mg Hydrox/Simethicone (Maalox Max Susp) 15 ml Q4H PRN PO 01/26/17 14:30 02/25/17 14:29 Ondansetron HCl (Zofran Inj) 4 mg Q6H PRN IV 01/26/17 14:30 02/25/17 14:29 Atorvastatin Calcium (Lipitor Tab) 40 mg QAM PO 01/27/17 09:00 02/26/17 08:59 02/09/17 09:19 40 MG Escitalopram Oxalate (Lexapro Tab) 10 mg DAILY PO 01/27/17 09:00 02/26/17 08:59 02/09/17 09:16 10 MG Nitroglycerin (Nitrostat Tab) 0.4 mg PRN PRN SL 01/26/17 15:00 02/25/17 14:59 Metoprolol Tartrate (Lopressor Iv) 5 mg Q6H PRN IV 01/27/17 15:30 02/26/17 08:29 01/30/17 13:01 5 MG Dextrose (Dextrose 50% 50ML Syringe) 25-50ML OF 50% DW IV FOR... UD PRN IV 01/27/17 13:00 02/26/17 12:59 Carvedilol (Coreg Tab) 6.25 mg BID PO 01/29/17 09:00 02/27/17 08:59 02/09/17 09:19 6.25 MG Lisinopril (Zestril Tab) 5 mg QAM PO 01/29/17 09:00 02/27/17 08:59 02/09/17 09:18 5 MG Lorazepam (Ativan Inj) 1 mg Q4H PRN IV 01/29/17 16:15 02/28/17 16:14 Lorazepam (Ativan Inj) 0.5 mg Q4H PRN IV 01/29/17 16:15 02/28/17 16:14 Nicotine (Nicoderm Cq 21MG Patch) 1 patch QAM TD 01/31/17 09:00 03/02/17 08:59 02/09/17 09:19 1 PATCH Miscellaneous (Remove Nicoderm Patch) 1 ea HS N/A 01/30/17 21:00 03/01/17 20:59 02/08/17 20:48 1 EA Hydrocortisone (Proctozone Hc 2.5% Crm) 1 appln Q8 PRN EXT 01/30/17 18:00 03/01/17 17:59 Enteral Nutritional Formula (Boost Pudding) 1 cup TID PO 02/03/17 14:00 03/05/17 13:59 02/03/17 20:48 1 CUP Enoxaparin Sodium (Lovenox Inj) 40 mg QAM SQ 02/04/17 09:00 03/06/17 08:59 02/09/17 09:16 40 MG Aspirin (Aspirin Chew) 81 mg DAILY NG 02/05/17 09:30 03/07/17 09:29 02/09/17 09:18 81 MG Enteral Nutritional Formula (Fibersource HN) 1,000 ml UD PRN NG 02/05/17 10:30 03/07/17 10:29 02/08/17 19:13 1,000 ML Multivitamins Therapeutic (Cerovite Liquid) 15 ml DAILY@0900 NG 02/06/17 09:00 03/08/17 08:59 6/15/17 09:18 15 ML Thiamine HCl (Vitamin B-1 Tab) 100 mg DAILY@0900 NG 02/06/17 09:00 03/08/17 08:59 Future hold 02/09/17 09:16 100 MG Folic Acid (Folvite Tab) 1 mg DAILY@0900 NG 02/06/17 09:00 03/08/17 08:59 02/09/17 09:19 1 MG Lansoprazole (Prevacid Solutab) 30 mg DAILY NG 02/06/17 09:00 03/08/17 08:59 02/09/17 09:19 30 MG Lorazepam 1 mg/ Syringe 1 ml @ 1 mls/min Q4H PRN IV 02/06/17 20:45 03/08/17 20:44 Lorazepam 0.5 mg/ Syringe 1 ml @ 1 mls/min Q4H PRN IV 02/06/17 20:45 03/08/17 20:44 02/06/17 20:59 1 MLS/MIN Sterile Water (Tube Feeding Water Flush) 250 ea Q8 NG 02/07/17 14:00 03/07/17 11:59 02/09/17 05:34 250 EA Piperacillin Sod/ Tazobactam Sod (Consult) 1 ea UD PRN N/A 02/08/17 14:15 03/10/17 14:14 Piperacillin Sod/ Tazobactam Sod 3.375 gm/Dextrose 115 ml @ 28.75 mls/ hr Q8@0400,1200,2000 IV 02/08/17 20:00 02/15/17 11:59 02/09/17 03:24 28.75 MLS/HR Impression (1) Alcohol dependence (2) Alcohol withdrawal (3) Acute encephalopathy (4) Acute liver disease (5) Hypernatremia Savanna Mercado is a 61-year-old female with acute alcoholic hepatitis associated with chronic alcohol use and dependence. She developed significant mental status changes attributed to agitated delirium related to ischemic injury , hepatic encephalopathy further complicated by chronic extensive cerebrovascular disease. She is starting to show improvement this morning. She was able to move her bowels yesterday for the first time in 24 hours. She is tolerating TF at goal rate and unlikely to tolerate oral intake yet but possibly soon. 1:1 at bedside. Free water deficit improved. Potassium and electrolytes appropriate this morning. Recommendations Blood pressure, volume status are appropriate. Renal function normal. Electrolytes appropriate. Nutrition being managed. No additional recommendations from nephrology at this time. We will sign off. Please call with any questions or concerns.
[2017-02-09 14:48] LABS: CYTOMEGALOVIRUS IGG AB <0.60 U/ML; EPSTEIN BARR VIR CAPSID IGG >750.00 U/ML
[2017-02-09 15:03] VITALS: BP 89/56; PULSE 67; TEMP 36.4; O2SAT 90
--- NOTE | 2017-02-09 19:13 | DIAGNOSTIC IMAGING REPORT ---
KUB CLINICAL HISTORY: check coresafe placement COMPARISON STUDY: KUB February 06, 2017. FINDINGS: Left basilar consolidation is incidentally noted. Interstitial thickening with airspace opacities within the right lung are also noted. The tip of the feeding tube projects over the distal body of the stomach. IMPRESSION: Tip of feeding tube within the distal body of the stomach. Electronically signed by: Adan Posada M.D. 02/09/2017 7:12 PM Dictated Date/Time: 02/09/2017 7:11 PM
[2017-02-09 21:47] VITALS: BP 109/78; PULSE 79
[2017-02-09 23:27] VITALS: BP 105/72; PULSE 76; TEMP 36.4; O2SAT 93
[2017-02-10] MEDS: PIPERACILL/TAZOBAC IV 3.375 GM in DEXTROSE 5% 100ML IV SCH ×3 (03:44→20:30)
[2017-02-10] MEDS: TUBE FEEDING WATER FLUSH NG SCH (06:09)
[2017-02-10 06:40] LABS: BUN/CREATININE RATIO 38.8 (10-20); CALCIUM 7.6 mg/dl (8.5-10.1); CREATININE 0.54 mg/dl (0.60-1.20); PHOSPHORUS 2.2 mg/dl (2.5-4.9); POTASSIUM 4.6 mmol/L (3.5-5.1)
[2017-02-10 07:05] VITALS: BP 138/99; PULSE 74; TEMP 36; O2SAT 93
[2017-02-10 08:00] VITALS: O2SAT 98
[2017-02-10] MEDS: ASPIRIN 81 MG CHEW NG SCH (08:59)
[2017-02-10] MEDS: LISINOPRIL 5 MG TAB PO SCH (08:59)
[2017-02-10] MEDS: BOOST VANILLA PUDDING CUP PO SCH ×3 (09:00→20:30)
[2017-02-10] MEDS: ENOXAPARIN 40 MG/0.4 ML SYR SQ SCH (09:00)
[2017-02-10] MEDS: NICOTINE 21 MG/24 HR TDSY TD SCH (09:00)
[2017-02-10] MEDS: CARVEDILOL 6.25 MG TAB PO SCH ×2 (09:01→20:31)
[2017-02-10] MEDS: ESCITALOPRAM OXALATE 10 MG TAB PO SCH (09:01)
[2017-02-10] MEDS: LANSOPRAZOLE SOLUTAB 30 MG NG SCH (09:01)
[2017-02-10] MEDS: THIAMINE HCL 100 MG TAB NG SCH (09:01)
[2017-02-10] MEDS: ATORVASTATIN 40 MG TAB PO SCH (09:01)
[2017-02-10] MEDS: MULTIVITAMINS W/MINERALS 15ML UDP NG SCH (09:02)
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
[2017-02-10 12:31] VITALS: BP 125/83; PULSE 76; TEMP 36; O2SAT 92
[2017-02-10 15:15] VITALS: BP 133/91; PULSE 82; TEMP 36.4; O2SAT 92
[2017-02-10 16:10] VITALS: O2SAT 92
[2017-02-10] MEDS: ACETAMINOPHEN 325 MG TAB PO PRN (20:29)
[2017-02-10 23:02] VITALS: BP 128/92; PULSE 80; TEMP 36.5; O2SAT 92
[2017-02-11] MEDS: PIPERACILL/TAZOBAC IV 3.375 GM in DEXTROSE 5% 100ML IV SCH ×3 (04:05→19:53)
[2017-02-11 06:57] VITALS: BP 143/96; PULSE 77; TEMP 36.4; O2SAT 90
[2017-02-11 07:31] LABS: BUN/CREATININE RATIO 32.6 (10-20); CREATININE 0.55 mg/dl (0.60-1.20); POTASSIUM 4.5 mmol/L (3.5-5.1)
[2017-02-11 07:32] LABS: CALCIUM 8.2 mg/dl (8.5-10.1); PHOSPHORUS 2.7 mg/dl (2.5-4.9)
[2017-02-11] MEDS: NICOTINE 21 MG/24 HR TDSY TD SCH (08:26)
[2017-02-11] MEDS: ENOXAPARIN 40 MG/0.4 ML SYR SQ SCH (08:30)
[2017-02-11] MEDS: LANSOPRAZOLE SOLUTAB 30 MG NG SCH (08:52)
[2017-02-11] MEDS: ASPIRIN 81 MG CHEW NG SCH (08:52)
[2017-02-11] MEDS: MULTIVITAMINS W/MINERALS 15ML UDP NG SCH (08:52)
[2017-02-11] MEDS: THIAMINE HCL 100 MG TAB NG SCH (08:52)
[2017-02-11] MEDS: BOOST VANILLA PUDDING CUP PO SCH ×3 (08:52→20:41)
[2017-02-11] MEDS: LISINOPRIL 5 MG TAB PO SCH (08:53)
[2017-02-11] MEDS: ESCITALOPRAM OXALATE 10 MG TAB PO SCH (08:53)
[2017-02-11] MEDS: CARVEDILOL 6.25 MG TAB PO SCH ×2 (08:53→20:45)
[2017-02-11] MEDS: ATORVASTATIN 40 MG TAB PO SCH (08:53)
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
[2017-02-11 16:13] LABS: EOS % 0.6 %; HEMATOCRIT 36.6 % (37-47); IG% 0.3 %; LYMPH % 7.7 %; LYMPH ABS # 0.49 K/uL (1.2-3.4); MEAN CELL VOLUME 91.3 fL (80-100); MEAN CORPUSCULAR HEMOGLOBIN 27.9 pg (25-34); MEAN CORPUSCULAR HGB CONC 30.6 g/dl (32-36); MEAN PLATELET VOLUME 11.3 fL (7.4-10.4); MONO % 6.9 %; NEUT % 84.5 %; PLATELET COUNT 172 K/uL (130-400); RED BLOOD COUNT 4.01 M/uL (4.2-5.4)
[2017-02-11 16:21] LABS: INR 1.1 (0.9-1.1)
[2017-02-11 16:34] LABS: BUN/CREATININE RATIO 27.2 (10-20); CALCIUM 7.9 mg/dl (8.5-10.1); CREATININE 0.58 mg/dl (0.60-1.20); POTASSIUM 4.3 mmol/L (3.5-5.1)
[2017-02-11 16:35] LABS: ANISOCYTOSIS PRESENT; COMPLETE YES; ECHINOCYTES 1+; POLYCHROMASIA 1+
[2017-02-11 16:36] LABS: ALB/GLOB RATIO 0.6 (0.9-2)
[2017-02-11 17:06] VITALS: BP 134/92; PULSE 87; TEMP 36.3; O2SAT 99
--- NOTE | 2017-02-11 17:23 | DIAGNOSTIC IMAGING REPORT ---
KUB CLINICAL HISTORY: Verify Cor safe placement tube position COMPARISON STUDY: 02/09/2017 FINDINGS: Feeding tube placed in the distal stomach. IMPRESSION: Feeding tube placed in the distal stomach. Electronically signed by: Sundar Benson M.D. 02/11/2017 5:21 PM Dictated Date/Time: 02/11/2017 5:21 PM
[2017-02-11] MEDS: LACTULOSE SYRUP 30 GM/45 ML UDP NG SCH ×2 (17:34→20:49)
[2017-02-11 22:45] VITALS: BP 132/82; PULSE 79; TEMP 36.6; O2SAT 94
[2017-02-12] MEDS: PIPERACILL/TAZOBAC IV 3.375 GM in DEXTROSE 5% 100ML IV SCH ×3 (03:49→20:18)
[2017-02-12] MEDS: LACTULOSE SYRUP 30 GM/45 ML UDP NG SCH (06:05)
[2017-02-12 06:49] VITALS: BP 127/97; PULSE 89; TEMP 36.5; O2SAT 97
[2017-02-12] MEDS: ASPIRIN 81 MG CHEW NG SCH (08:07)
[2017-02-12] MEDS: ENOXAPARIN 40 MG/0.4 ML SYR SQ SCH (08:07)
[2017-02-12] MEDS: LANSOPRAZOLE SOLUTAB 30 MG NG SCH (08:07)
[2017-02-12] MEDS: MULTIVITAMINS W/MINERALS 15ML UDP NG SCH (08:08)
[2017-02-12] MEDS: NICOTINE 21 MG/24 HR TDSY TD SCH (08:08)
[2017-02-12] MEDS: LISINOPRIL 5 MG TAB PO SCH (08:08)
[2017-02-12] MEDS: ESCITALOPRAM OXALATE 10 MG TAB PO SCH (08:08)
[2017-02-12] MEDS: BOOST VANILLA PUDDING CUP PO SCH ×3 (08:09→20:18)
[2017-02-12] MEDS: THIAMINE HCL 100 MG TAB NG SCH (08:09)
[2017-02-12] MEDS: CARVEDILOL 6.25 MG TAB PO SCH ×2 (08:09→20:27)
[2017-02-12 08:25] LABS: BUN/CREATININE RATIO 21.2 (10-20); CREATININE 0.59 mg/dl (0.60-1.20); POTASSIUM 3.8 mmol/L (3.5-5.1)
[2017-02-12 08:27] LABS: ALB/GLOB RATIO 0.6 (0.9-2)
[2017-02-12 08:31] LABS: CALCIUM 8.3 mg/dl (8.5-10.1)
[2017-02-12] MEDS: ATORVASTATIN 40 MG TAB PO SCH (08:35)
[2017-02-12] MEDS: D5W AND 1/2NSS + 20MEQ KCL 1,000 ML IV SCH (14:27)
[2017-02-12 14:51] VITALS: BP 126/76; PULSE 74; TEMP 36.6; O2SAT 97
--- NOTE | 2017-02-12 15:42 | Progress Note ---
Subjective Date of Service: Feb 12, 2017. Subjective Pt evaluation today including: conversation w/ patient (minimally responsive), conversation w/ family (ninimco Corrales over the phone), physical exam, lab review , review of inpatient medication list Pain: no pain PO Intake: NPO Voiding: miguel catheter in place patient less conversive today, not able to eat reviewed labs, LFT all trending down significantly, ammonia normal, Cr stable, electrolytes normal discussed yesterday at length with family that we are looking at the need for a PEG tube had a long discussion with patient's niece Savanna over the phone who is a physician discussed that prognosis is guarded, very poor, at this point we need to place a PEG for nutrition and medications will need placement at SNF ultimately will be dealing with secondary issues that come with encephalopathy including recurrent infections, bed sores etc family understands this, agree with PEG and SNF placement discussed PEG with Dr. Lowry today, will put on schedule, patient is NPO Problem List Medical Problems: (1) Acute electrocardiogram changes Status: Acute (2) Dizziness Status: Acute (3) Elevated troponin Status: Acute (4) Hypokalemia Status: Acute (5) Hypomagnesemia Status: Acute (6) Weakness Status: Acute Review of Systems cannot review due to encephalopathy Medications Current Inpatient Medications Medications (Trade) Dose Ordered Sig/Debbie Route Start Time Stop Time Status Last Admin Dose Admin Acetaminophen (Tylenol Tab) 650 mg Q4H PRN PO 01/26/17 14:30 02/25/17 14:29 02/10/17 20:29 650 MG Al Hydrox/Mg Hydrox/Simethicone (Maalox Max Susp) 15 ml Q4H PRN PO 01/26/17 14:30 02/25/17 14:29 Ondansetron HCl (Zofran Inj) 4 mg Q6H PRN IV 01/26/17 14:30 02/25/17 14:29 Atorvastatin Calcium (Lipitor Tab) 40 mg QAM PO 01/27/17 09:00 02/26/17 08:59 02/12/17 08:35 40 MG Escitalopram Oxalate (Lexapro Tab) 10 mg DAILY PO 01/27/17 09:00 02/26/17 08:59 02/12/17 08:08 10 MG Nitroglycerin (Nitrostat Tab) 0.4 mg PRN PRN SL 01/26/17 15:00 02/25/17 14:59 Metoprolol Tartrate (Lopressor Iv) 5 mg Q6H PRN IV 01/27/17 15:30 02/26/17 08:29 01/30/17 13:01 5 MG Dextrose (Dextrose 50% 50ML Syringe) 25-50ML OF 50% DW IV FOR... UD PRN IV 01/27/17 13:00 02/26/17 12:59 Carvedilol (Coreg Tab) 6.25 mg BID PO 01/29/17 09:00 02/27/17 08:59 02/12/17 08:09 6.25 MG Lisinopril (Zestril Tab) 5 mg QAM PO 01/29/17 09:00 02/27/17 08:59 02/12/17 08:08 5 MG Lorazepam (Ativan Inj) 1 mg Q4H PRN IV 01/29/17 16:15 02/28/17 16:14 Lorazepam (Ativan Inj) 0.5 mg Q4H PRN IV 01/29/17 16:15 02/28/17 16:14 Nicotine (Nicoderm Cq 21MG Patch) 1 patch QAM TD 01/31/17 09:00 03/02/17 08:59 02/12/17 08:08 1 PATCH Miscellaneous (Remove Nicoderm Patch) 1 ea HS N/A 01/30/17 21:00 03/01/17 20:59 02/11/17 20:41 1 EA Hydrocortisone (Proctozone Hc 2.5% Crm) 1 appln Q8 PRN EXT 01/30/17 18:00 03/01/17 17:59 Enteral Nutritional Formula (Boost Pudding) 1 cup TID PO 02/03/17 14:00 03/05/17 13:59 02/10/17 20:30 1 CUP Enoxaparin Sodium (Lovenox Inj) 40 mg QAM SQ 02/04/17 09:00 03/06/17 08:59 02/12/17 08:07 40 MG Aspirin (Aspirin Chew) 81 mg DAILY NG 02/05/17 09:30 03/07/17 09:29 02/12/17 08:07 81 MG Enteral Nutritional Formula (Fibersource HN) 1,000 ml UD PRN NG 02/05/17 10:30 03/07/17 10:29 02/08/17 19:13 1,000 ML Multivitamins Therapeutic (Cerovite Liquid) 15 ml DAILY@0900 NG 02/06/17 09:00 03/08/17 08:59 02/12/17 08:08 15 ML Thiamine HCl (Vitamin B-1 Tab) 100 mg DAILY@0900 NG 02/06/17 09:00 03/08/17 08:59 Future hold 02/12/17 08:09 100 MG Folic Acid (Folvite Tab) 1 mg DAILY@0900 NG 02/06/17 09:00 03/08/17 08:59 02/12/17 08:08 1 MG Lansoprazole (Prevacid Solutab) 30 mg DAILY NG 02/06/17 09:00 03/08/17 08:59 02/12/17 08:07 30 MG Lorazepam 1 mg/ Syringe 1 ml @ 1 mls/min Q4H PRN IV 02/06/17 20:45 03/08/17 20:44 Lorazepam 0.5 mg/ Syringe 1 ml @ 1 mls/min Q4H PRN IV 02/06/17 20:45 03/08/17 20:44 02/06/17 20:59 1 MLS/MIN Sterile Water (Tube Feeding Water Flush) 250 ea Q8 NG 02/07/17 14:00 03/07/17 11:59 Future Hold 02/10/17 06:09 250 EA Piperacillin Sod/ Tazobactam Sod (Consult) 1 ea UD PRN N/A 02/08/17 14:15 03/10/17 14:14 Piperacillin Sod/ Tazobactam Sod 3.375 gm/Dextrose 115 ml @ 28.75 mls/ hr Q8@0400,1200,2000 IV 02/08/17 20:00 02/15/17 11:59 02/12/17 12:29 28.75 MLS/HR Potassium Chloride/Dextrose/ Sod Cl 1,000 ml @ 75 mls/hr [id number] IV 02/12/17 14:00 03/14/17 13:59 02/12/17 14:27 75 MLS/HR Objective Vital Signs Date Time Temp Pulse Resp B/P (MAP) Pulse Ox O2 Delivery O2 Flow Rate FiO2 02/12/17 14:51 36.6 74 18 126/76 (93) 97 Nasal Cannula 2.0 02/12/17 08:00 Nasal Cannula 2.0 02/12/17 06:49 36.5 89 20 127/97 (107) 97 Nasal Cannula 2.0 02/12/17 00:00 Nasal Cannula 2.0 02/11/17 22:45 36.6 79 18 132/82 (99) 94 Nasal Cannula 2.0 02/11/17 20:00 Nasal Cannula 2.0 02/11/17 17:06 36.3 87 20 134/92 (106) 99 Nasal Cannula 2.0 02/11/17 16:00 Nasal Cannula 2.0 Physical Exam General Appearance: WD/WN, no apparent distress Eyes: + pertinent finding (eyes closed, will open to voice but only momentarily ) Neck: supple, no adenopathy, no JVD, trachea midline Respiratory/Chest: chest non-tender, no respiratory distress, no accessory muscle use, + rhonchi (right side) Cardiovascular: regular rate, rhythm, no edema, no gallop, no JVD, no murmur Abdomen: non tender, soft, no organomegaly, + abnormal bowel sounds (hypoactive ) Extremities: normal inspection, no pedal edema, no calf tenderness, normal capillary refill, pelvis stable Neurologic/Psychiatric: + motor weakness, + depressed affect, + disoriented, + pertinent finding (lethargy, will withdraw to pain, no upper motor signs, just a profound lethargy, cannot stay awake long enough to safely eat, take medications) Laboratory Results Last 24 Hours Test 02/11/17 15:32 02/11/17 15:58 02/11/17 16:21 02/11/17 20:05 Ammonia 26.0 umol/L White Blood Count 6.40 K/uL Red Blood Count 4.01 M/uL Hemoglobin 11.2 g/dL Hematocrit 36.6 % Mean Corpuscular Volume 91.3 fL Mean Corpuscular Hemoglobin 27.9 pg Mean Corpuscular Hemoglobin Concent 30.6 g/dl Platelet Count 172 K/uL Mean Platelet Volume 11.3 fL Neutrophils (%) (Auto) 84.5 % Lymphocytes (%) (Auto) 7.7 % Monocytes (%) (Auto) 6.9 % Eosinophils (%) (Auto) 0.6 % Basophils (%) (Auto) 0.0 % Neutrophils # (Auto) 5.41 K/uL Lymphocytes # (Auto) 0.49 K/uL Monocytes # (Auto) 0.44 K/uL Eosinophils # (Auto) 0.04 K/uL Basophils # (Auto) 0.00 K/uL RDW Standard Deviation 69.9 fL RDW Coefficient of Variation 21.0 % Immature Granulocyte % (Auto) 0.3 % Immature Granulocyte # (Auto) 0.02 K/uL Polychromasia 1+ Anisocytosis PRESENT Echinocytes 1+ Prothrombin Time 12.0 SECONDS Prothromb Time International Ratio 1.1 Sodium Level 143 mmol/L Potassium Level 4.3 mmol/L Chloride Level 109 mmol/L Carbon Dioxide Level 26 mmol/L Anion Gap 8.0 mmol/L Blood Urea Nitrogen 16 mg/dl Creatinine 0.58 mg/dl Est Creatinine Clear Calc Drug Dose 97.6 ml/min Estimated GFR () 113.7 Estimated GFR (Non- 98.1 BUN/Creatinine Ratio 27.2 Random Glucose 101 mg/dl Calcium Level 7.9 mg/dl Total Bilirubin 1.7 mg/dl Aspartate Amino Transf (AST/SGOT) 84 U/L Alanine Aminotransferase (ALT/SGPT) 247 U/L Alkaline Phosphatase 186 U/L Total Protein 6.4 gm/dl Albumin 2.5 gm/dl Globulin 3.9 gm/dl Albumin/Globulin Ratio 0.6 Bedside Glucose 120 mg/dl 112 mg/dl Test 02/12/17 07:34 02/12/17 07:37 02/12/17 11:21 Sodium Level 144 mmol/L Potassium Level 3.8 mmol/L Chloride Level 109 mmol/L Carbon Dioxide Level 27 mmol/L Anion Gap 8.0 mmol/L Blood Urea Nitrogen 13 mg/dl Creatinine 0.59 mg/dl Est Creatinine Clear Calc Drug Dose 96.0 ml/min Estimated GFR () 113.1 Estimated GFR (Non- 97.5 BUN/Creatinine Ratio 21.2 Random Glucose 107 mg/dl Calcium Level 8.3 mg/dl Total Bilirubin 1.6 mg/dl Aspartate Amino Transf (AST/SGOT) 81 U/L Alanine Aminotransferase (ALT/SGPT) 228 U/L Alkaline Phosphatase 168 U/L Ammonia 17.0 umol/L Total Protein 6.5 gm/dl Albumin 2.4 gm/dl Globulin 4.1 gm/dl Albumin/Globulin Ratio 0.6 Bedside Glucose 102 mg/dl 100 mg/dl Assessment and Plan Pt is a 61 yo female with worsening weakness/dizziness x few weeks. Presented with NSTEMI, new systolic heart failure unfortunately she had ventricular tachycardia, shock liver and a progressive encephalopathy during her stay exhibited by profound lethargy and unresponsiveness despite supportive efforts and full work up, her encephalopathy has not resolved or improved significantly Multifactorial Encephalopathy: cerebrovascular disease at baseline with alcohol abuse and she experienced shock liver on 01/30 at this point the patient's prognosis is guarded, very poor for any type of meaningful recovery her LFT are nearly normal, ammonia is normal, vitals stable, pneumonia is treated and she received several days of nutrition via TF her thiamine is normal, MRI shows no stroke, EEG shows no epileptiform activity she will wake up and respond appropriately, even have moments of orientation , however, she is profoundly lethargic and drifts off quickly unsafe to eat, take pills family agrees with plan for PEG for nutrition and medications she will need SNF placement family understands that prognosis is poor overall and she will be prone to recurrent infections (UTI, aspiration Pna) and bed sores plan for PEG tomorrow hopeful for d/c to SNF mid week Possible Aspiration Pneumonia: - Zosyn 4.5 g IV Q6H for aspiration - DAY #5, would treat for 7 days total ETOH Abuse: STABLE - Librium and detox protocols weaned and completed last week, no sedation for over a week - Thiamine, MVA, and Folic acid - thiamine level normal Elevated LFTs with Fatty Liver: Ischemic Hepatitis from [place] - LFTs trending down to near normal levels, ammonia normal - US showed normal liver, no evidence of portal vein thrombosis - GI signed off NSTEMI with Systolic Heart Failure: STABLE - Stopped heparin drip last week - Echo - EF 25% - unable to participate in stress test - ASA 81 mg daily via PEG once placed - Coreg 6.25 mg BID and Lisinopril 5 mg daily via PEG once placed Hypernatremia with Metabolic Acidosis: RESOLVED - Nephrology signed off Escherichia Coli UTI: RESOLVED - Tx complete Depression/Anxiety: CANNOT ASSESS - Lexapro 10 mg daily GERD: - Lansoprazole 30 mg daily DVT Prophylaxis: Lovenox 40 mg SC daily Code Status: FULL RESUSCITATION see above for d/c plan Continued [facility] stay due to: multiple IV medications needed Discharge planning: senior living facility
[2017-02-12] MEDS ORDERED: NURSING VERBAL MED ORDER ONE (15:45)
[2017-02-12 16:00] VITALS: O2SAT 97
[2017-02-12 20:25] VITALS: BP 131/89; PULSE 86
[2017-02-12 23:09] VITALS: BP 142/93; PULSE 76; TEMP 36.4; O2SAT 96
[2017-02-13] MEDS: D5W AND 1/2NSS + 20MEQ KCL 1,000 ML IV SCH ×2 (02:46→15:34)
[2017-02-13] MEDS: PIPERACILL/TAZOBAC IV 3.375 GM in DEXTROSE 5% 100ML IV SCH ×3 (04:13→20:00)
[2017-02-13 06:23] VITALS: BP 130/85; PULSE 76; TEMP 36.5; O2SAT 96
[2017-02-13] MEDS: ATORVASTATIN 40 MG TAB PO SCH (08:48)
[2017-02-13] MEDS: LANSOPRAZOLE SOLUTAB 30 MG NG SCH (08:48)
[2017-02-13] MEDS: ASPIRIN 81 MG CHEW NG SCH (08:49)
[2017-02-13] MEDS: ESCITALOPRAM OXALATE 10 MG TAB PO SCH (08:49)
[2017-02-13] MEDS: ENOXAPARIN 40 MG/0.4 ML SYR SQ SCH (08:50)
[2017-02-13] MEDS: MULTIVITAMINS W/MINERALS 15ML UDP NG SCH (08:50)
[2017-02-13] MEDS: BOOST VANILLA PUDDING CUP PO SCH ×3 (08:51→20:05)
[2017-02-13] MEDS: CARVEDILOL 6.25 MG TAB PO SCH ×2 (08:51→20:02)
[2017-02-13] MEDS: THIAMINE HCL 100 MG TAB NG SCH (08:51)
[2017-02-13] MEDS: LISINOPRIL 5 MG TAB PO SCH (08:52)
--- NOTE | 2017-02-13 09:46 | Hospitalist Progress Note ---
Hospitalist Progress Note Date of Service Feb 13, 2017. Subjective Pt evaluation today including: conversation w/ patient, physical exam, chart review, lab review, review of studies, review of inpatient medication list Voiding: miguel catheter in place (draining concentrated yellow urine) Walked into room and patient was alert and talking to sitter. She appears calm and drowsy. Patient denies any complaints/pains. Oriented to person- able to state/spell name- recalls Dr. Allen. Disoriented to time/place. Tells me she has two white dogs at home named Diva and Tiffani- unsure of reliability, told nurse different names. ROS cannot be obtained secondary to patient's status. Per sitter, patient is doing well. Biggest problem is pulling at lines. Per nursing staff, patient is much more alert/oriented today compared to over the weekend. Monday patient was very lethargic and hard to arouse. Monday patient was very agitated. Today, patient is more calm and able to follow commands. No acute events noted. Medications Current Inpatient Medications Medications (Trade) Dose Ordered Sig/Debbie Route Start Time Stop Time Status Last Admin Dose Admin Acetaminophen (Tylenol Tab) 650 mg Q4H PRN PO 01/26/17 14:30 02/25/17 14:29 02/10/17 20:29 650 MG Al Hydrox/Mg Hydrox/Simethicone (Maalox Max Susp) 15 ml Q4H PRN PO 01/26/17 14:30 02/25/17 14:29 Ondansetron HCl (Zofran Inj) 4 mg Q6H PRN IV 01/26/17 14:30 02/25/17 14:29 Atorvastatin Calcium (Lipitor Tab) 40 mg QAM PO 01/27/17 09:00 02/26/17 08:59 02/13/17 08:48 40 MG Escitalopram Oxalate (Lexapro Tab) 10 mg DAILY PO 01/27/17 09:00 02/26/17 08:59 02/13/17 08:49 10 MG Nitroglycerin (Nitrostat Tab) 0.4 mg PRN PRN SL 01/26/17 15:00 02/25/17 14:59 Metoprolol Tartrate (Lopressor Iv) 5 mg Q6H PRN IV 01/27/17 15:30 02/26/17 08:29 01/30/17 13:01 5 MG Dextrose (Dextrose 50% 50ML Syringe) 25-50ML OF 50% DW IV FOR... UD PRN IV 01/27/17 13:00 02/26/17 12:59 Carvedilol (Coreg Tab) 6.25 mg BID PO 01/29/17 09:00 02/27/17 08:59 02/13/17 08:51 6.25 MG Lisinopril (Zestril Tab) 5 mg QAM PO 01/29/17 09:00 02/27/17 08:59 02/13/17 08:52 5 MG Lorazepam (Ativan Inj) 1 mg Q4H PRN IV 01/29/17 16:15 02/28/17 16:14 Lorazepam (Ativan Inj) 0.5 mg Q4H PRN IV 01/29/17 16:15 02/28/17 16:14 Nicotine (Nicoderm Cq 21MG Patch) 1 patch QAM TD 01/31/17 09:00 03/02/17 08:59 02/12/17 08:08 1 PATCH Miscellaneous (Remove Nicoderm Patch) 1 ea HS N/A 01/30/17 21:00 03/01/17 20:59 02/12/17 20:19 1 EA Hydrocortisone (Proctozone Hc 2.5% Crm) 1 appln Q8 PRN EXT 01/30/17 18:00 03/01/17 17:59 Enteral Nutritional Formula (Boost Pudding) 1 cup TID PO 02/03/17 14:00 03/05/17 13:59 02/10/17 20:30 1 CUP Enoxaparin Sodium (Lovenox Inj) 40 mg QAM SQ 02/04/17 09:00 03/06/17 08:59 02/13/17 08:50 40 MG Aspirin (Aspirin Chew) 81 mg DAILY NG 02/05/17 09:30 03/07/17 09:29 02/13/17 08:49 81 MG Enteral Nutritional Formula (Fibersource HN) 1,000 ml UD PRN NG 02/05/17 10:30 03/07/17 10:29 Future Hold 02/08/17 19:13 1,000 ML Multivitamins Therapeutic (Cerovite Liquid) 15 ml DAILY@0900 NG 02/06/17 09:00 03/08/17 08:59 02/13/17 08:50 15 ML Thiamine HCl (Vitamin B-1 Tab) 100 mg DAILY@0900 NG 02/06/17 09:00 03/08/17 08:59 Future hold 02/13/17 08:51 100 MG Folic Acid (Folvite Tab) 1 mg DAILY@0900 NG 02/06/17 09:00 03/08/17 08:59 02/13/17 08:49 1 MG Lansoprazole (Prevacid Solutab) 30 mg DAILY NG 02/06/17 09:00 03/08/17 08:59 02/13/17 08:48 30 MG Lorazepam 1 mg/ Syringe 1 ml @ 1 mls/min Q4H PRN IV 02/06/17 20:45 03/08/17 20:44 Lorazepam 0.5 mg/ Syringe 1 ml @ 1 mls/min Q4H PRN IV 02/06/17 20:45 03/08/17 20:44 02/06/17 20:59 1 MLS/MIN Sterile Water (Tube Feeding Water Flush) 250 ea Q8 NG 02/07/17 14:00 03/07/17 11:59 Future Hold 02/10/17 06:09 250 EA Piperacillin Sod/ Tazobactam Sod (Consult) 1 ea UD PRN N/A 02/08/17 14:15 03/10/17 14:14 Piperacillin Sod/ Tazobactam Sod 3.375 gm/Dextrose 115 ml @ 28.75 mls/ hr Q8@0400,1200,2000 IV 02/08/17 20:00 02/15/17 11:59 02/13/17 04:13 28.75 MLS/HR Potassium Chloride/Dextrose/ Sod Cl 1,000 ml @ 75 mls/hr [id number] IV 02/12/17 14:00 03/14/17 13:59 02/13/17 02:46 75 MLS/HR Objective Vital Signs Date Time Temp Pulse Resp B/P (MAP) Pulse Ox O2 Delivery O2 Flow Rate FiO2 02/13/17 06:23 36.5 76 20 130/85 (100) 96 Nasal Cannula 2.0 02/13/17 00:00 Nasal Cannula 2.0 02/12/17 23:09 36.4 76 20 142/93 (109) 96 Nasal Cannula 2.0 02/12/17 20:25 86 131/89 (103) 02/12/17 18:40 Nasal Cannula 2.0 02/12/17 16:00 97 Nasal Cannula 2.0 02/12/17 14:51 36.6 74 18 126/76 (93) 97 Nasal Cannula 2.0 Physical Exam General Appearance: no apparent distress, + pertinent finding (O2 2L supplement on; Corsafe feeding tube ) Eyes: PERRL ENT: hearing grossly normal Neck: supple Respiratory/Chest: lungs clear, no respiratory distress, no accessory muscle use Cardiovascular: regular rate, rhythm Abdomen: non tender, soft, + abnormal bowel sounds (hypoactive ) Extremities: no pedal edema, no calf tenderness, + pertinent finding (will wiggle toes/ankles on command ) Neurologic/Psychiatric: alert, + motor weakness, + depressed affect, + disoriented (to place/time), + pertinent finding (drowsy) Skin: normal color, warm/dry, no rash Laboratory Results Last 24 Hours Test 02/12/17 11:21 02/12/17 18:04 02/13/17 00:11 02/13/17 06:46 Bedside Glucose 100 mg/dl 116 mg/dl 141 mg/dl 134 mg/dl Assessment and Plan Pt is a 61 yo female with worsening weakness/dizziness x few weeks. Presented with NSTEMI, new systolic heart failure. Unfortunately she had ventricular tachycardia, shock liver and a progressive encephalopathy during her stay exhibited by profound lethargy and unresponsiveness. 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 Allen's notes on 02/12- spoke w/ family and agreeable to PEG tube- case discussed w/ Dr. Lowry - D5W 1/2 NS + 20 mEq KCL @ 75 ml/hr while NPO and pending PEG placement - Ativan 0.5-1 mg q4 hrs PRN - Hyperammonemia- RESOLVED: Continue Lactulose 30 gm TID - 1:1 at this time Possible Aspiration Pneumonia: Zosyn 4.5 g IV Q6H for aspiration - DAY #6 (last day of treatment 02/14) ETOH Abuse- STABLE: - Librium and detox protocols weaned and complete - Thiamine, MVA, and Folic acid Tobacco Abuse: NicoDerm patch Elevated LFTs with fatty liver, secondary to ischemic hepatitis from [place]- STABLE : - Liver US 01/30- unremarkable sonographic assessment of the hepatic and portal vasculature - Abdominal US 02/04- Moderate gallbladder wall thickening, a nonspecific finding. No gallstones. No biliary ductal dilatation. Small amount of ascites and a right pleural effusion. Increased hepatic echogenicity which may reflect fatty infiltration or hepatocellular disease. - LFTs trending down- repeat CMP tomorrow AM - GI signed off NSTEMI w/ systolic heart failure- STABLE: - Treated w/ IV Heparin drip 01/26-01/29 and IV Lasix - Echo - EF 25% - unable to participate in stress test - ASA 81 mg daily - Coreg 6.25 mg BID and Lisinopril 5 mg daily Dyslipidemia: - Lipitor 40 mg daily - Lipid panel on 01/26/17- reviewed Hypernatremia with metabolic acidosis- RESOLVED: Nephrology signed off Escherichia Coli UTI- RESOLVED: Treatment of Cipro completed Depression/Anxiety- CANNOT ASSESS: Lexapro 10 mg daily GERD: Lansoprazole 30 mg daily GI Prophylaxis: Prevacid, Maalox PRN, IV Zofran PRN DVT Prophylaxis: Lovenox 40 mg SC daily Code Status: LEVEL I, FULL Disposition: Pending PEG tube placement- will need SNF placement- social service manager following - Prognosis- guarded
[2017-02-13] MEDS: NICOTINE 21 MG/24 HR TDSY TD SCH (09:57)
[2017-02-13 15:09] VITALS: BP 117/70; PULSE 62; O2SAT 96
[2017-02-13 20:06] VITALS: BP 107/73; PULSE 79
[2017-02-13 23:07] VITALS: BP 127/84; PULSE 62; TEMP 36.8; O2SAT 95
[2017-02-14] VITALS (12 sets, daily range): BP systolic 100–134; BP diastolic 60–91; PULSE 61–73; TEMP 36.4–36.8; O2SAT 93–100
[2017-02-14] MEDS: D5W AND 1/2NSS + 20MEQ KCL 1,000 ML IV SCH ×2 (03:36→18:25)
[2017-02-14] MEDS: PIPERACILL/TAZOBAC IV 3.375 GM in DEXTROSE 5% 100ML IV SCH ×3 (03:36→21:00)
[2017-02-14 08:22] LABS: ALB/GLOB RATIO 0.6 (0.9-2); CREATININE 0.49 mg/dl (0.60-1.20); MAGNESIUM 1.7 mg/dl (1.8-2.4); POTASSIUM 3.9 mmol/L (3.5-5.1)
[2017-02-14] MEDS: ESCITALOPRAM OXALATE 10 MG TAB PO SCH (08:22)
[2017-02-14] MEDS: LISINOPRIL 5 MG TAB PO SCH (08:23)
[2017-02-14] MEDS: ASPIRIN 81 MG CHEW NG SCH (08:23)
[2017-02-14] MEDS: LANSOPRAZOLE SOLUTAB 30 MG NG SCH (08:23)
[2017-02-14] MEDS: ATORVASTATIN 40 MG TAB PO SCH (08:23)
[2017-02-14] MEDS: CARVEDILOL 6.25 MG TAB PO SCH ×2 (08:23→21:08)
[2017-02-14] MEDS: MULTIVITAMINS W/MINERALS 15ML UDP NG SCH (08:23)
[2017-02-14] MEDS: THIAMINE HCL 100 MG TAB NG SCH (08:23)
[2017-02-14] MEDS: NICOTINE 21 MG/24 HR TDSY TD SCH (08:24)
[2017-02-14] MEDS: BOOST VANILLA PUDDING CUP PO SCH ×3 (08:24→21:00)
[2017-02-14] MEDS: ENOXAPARIN 40 MG/0.4 ML SYR SQ SCH (09:00)
[2017-02-14 09:01] LABS: CALCIUM 8.6 mg/dl (8.5-10.1)
[2017-02-14] MEDS ORDERED: MAGNESIUM SULFATE 1GM / D5W 1 GM in PREMIXED IN D5W 100 ML IV ONE (10:15)
--- NOTE | 2017-02-14 10:50 | Hospitalist Progress Note ---
Hospitalist Progress Note Date of Service Feb 14, 2017. Subjective Pt evaluation today including: conversation w/ patient, physical exam, chart review, lab review, review of inpatient medication list Voiding: miguel catheter in place (draining concentrated yellow urine ) Patient resting in bed peacefully w/ no signs of acute distress- vitals stable ROS could not be obtained due to patient's mental status. Per sitter- patient was alert this AM. Just recently went back to sleep. No acute events noted. Per nursing staff- no acute events. LUE swelling due to IV site infiltration- IV site moved to RUE Medications Current Inpatient Medications Medications (Trade) Dose Ordered Sig/Debbie Route Start Time Stop Time Status Last Admin Dose Admin Acetaminophen (Tylenol Tab) 650 mg Q4H PRN PO 01/26/17 14:30 02/25/17 14:29 02/10/17 20:29 650 MG Al Hydrox/Mg Hydrox/Simethicone (Maalox Max Susp) 15 ml Q4H PRN PO 01/26/17 14:30 02/25/17 14:29 Ondansetron HCl (Zofran Inj) 4 mg Q6H PRN IV 01/26/17 14:30 02/25/17 14:29 02/14/17 09:06 4 MG Atorvastatin Calcium (Lipitor Tab) 40 mg QAM PO 01/27/17 09:00 02/26/17 08:59 02/14/17 08:23 40 MG Escitalopram Oxalate (Lexapro Tab) 10 mg DAILY PO 01/27/17 09:00 02/26/17 08:59 02/14/17 08:22 10 MG Nitroglycerin (Nitrostat Tab) 0.4 mg PRN PRN SL 01/26/17 15:00 02/25/17 14:59 Metoprolol Tartrate (Lopressor Iv) 5 mg Q6H PRN IV 01/27/17 15:30 02/26/17 08:29 01/30/17 13:01 5 MG Dextrose (Dextrose 50% 50ML Syringe) 25-50ML OF 50% DW IV FOR... UD PRN IV 01/27/17 13:00 02/26/17 12:59 Carvedilol (Coreg Tab) 6.25 mg BID PO 01/29/17 09:00 02/27/17 08:59 02/14/17 08:23 6.25 MG Lisinopril (Zestril Tab) 5 mg QAM PO 01/29/17 09:00 02/27/17 08:59 02/14/17 08:23 5 MG Lorazepam (Ativan Inj) 1 mg Q4H PRN IV 01/29/17 16:15 02/28/17 16:14 Lorazepam (Ativan Inj) 0.5 mg Q4H PRN IV 01/29/17 16:15 02/28/17 16:14 Nicotine (Nicoderm Cq 21MG Patch) 1 patch QAM TD 01/31/17 09:00 03/02/17 08:59 02/14/17 08:24 1 PATCH Miscellaneous (Remove Nicoderm Patch) 1 ea HS N/A 01/30/17 21:00 03/01/17 20:59 02/13/17 20:06 1 EA Hydrocortisone (Proctozone Hc 2.5% Crm) 1 appln Q8 PRN EXT 01/30/17 18:00 03/01/17 17:59 Enteral Nutritional Formula (Boost Pudding) 1 cup TID PO 02/03/17 14:00 03/05/17 13:59 02/10/17 20:30 1 CUP Enoxaparin Sodium (Lovenox Inj) 40 mg QAM SQ 02/04/17 09:00 03/06/17 08:59 02/13/17 08:50 40 MG Aspirin (Aspirin Chew) 81 mg DAILY NG 02/05/17 09:30 03/07/17 09:29 02/14/17 08:23 81 MG Enteral Nutritional Formula (Fibersource HN) 1,000 ml UD PRN NG 02/05/17 10:30 03/07/17 10:29 Future Hold 02/08/17 19:13 1,000 ML Multivitamins Therapeutic (Cerovite Liquid) 15 ml DAILY@0900 NG 02/06/17 09:00 03/08/17 08:59 02/14/17 08:23 15 ML Thiamine HCl (Vitamin B-1 Tab) 100 mg DAILY@0900 NG 02/06/17 09:00 03/08/17 08:59 Future hold 02/14/17 08:23 100 MG Folic Acid (Folvite Tab) 1 mg DAILY@0900 NG 02/06/17 09:00 03/08/17 08:59 02/14/17 08:24 1 MG Lansoprazole (Prevacid Solutab) 30 mg DAILY NG 02/06/17 09:00 03/08/17 08:59 02/14/17 08:23 30 MG Lorazepam 1 mg/ Syringe 1 ml @ 1 mls/min Q4H PRN IV 02/06/17 20:45 03/08/17 20:44 Lorazepam 0.5 mg/ Syringe 1 ml @ 1 mls/min Q4H PRN IV 02/06/17 20:45 03/08/17 20:44 02/06/17 20:59 1 MLS/MIN Sterile Water (Tube Feeding Water Flush) 250 ea Q8 NG 02/07/17 14:00 03/07/17 11:59 Future Hold 02/10/17 06:09 250 EA Piperacillin Sod/ Tazobactam Sod (Consult) 1 ea UD PRN N/A 02/08/17 14:15 03/10/17 14:14 Piperacillin Sod/ Tazobactam Sod 3.375 gm/Dextrose 115 ml @ 28.75 mls/ hr Q8@0400,1200,2000 IV 02/08/17 20:00 02/15/17 11:59 02/14/17 03:36 28.75 MLS/HR Potassium Chloride/Dextrose/ Sod Cl 1,000 ml @ 75 mls/hr [id number] IV 02/12/17 14:00 03/14/17 13:59 02/14/17 03:36 75 MLS/HR Magnesium Sulfate 1 gm/Prmx 100 ml @ 100 mls/hr NOW ONCE IV 02/14/17 10:15 02/14/17 11:14 02/14/17 10:19 100 MLS/HR Objective Vital Signs Date Time Temp Pulse Resp B/P (MAP) Pulse Ox O2 Delivery O2 Flow Rate FiO2 02/14/17 08:45 Nasal Cannula 2.0 02/14/17 07:53 36.4 73 20 134/91 (105) 98 Nasal Cannula 2.0 02/14/17 00:00 Nasal Cannula 2.0 02/13/17 23:07 36.8 62 14 127/84 (98) 95 Nasal Cannula 2.0 02/13/17 20:06 79 107/73 (84) 02/13/17 16:00 Nasal Cannula 2.0 02/13/17 15:09 62 20 117/70 (86) 96 Room Air Physical Exam General Appearance: no apparent distress Eyes: PERRL ENT: hearing grossly normal Neck: supple Respiratory/Chest: lungs clear, no respiratory distress, no accessory muscle use Cardiovascular: regular rate, rhythm Abdomen: normal bowel sounds, non tender, soft Extremities: no pedal edema, no calf tenderness Neurologic/Psychiatric: + disoriented Skin: normal color, warm/dry, no rash Laboratory Results Last 24 Hours Test 02/13/17 19:09 02/14/17 07:35 Bedside Glucose 143 mg/dl Sodium Level 141 mmol/L Potassium Level 3.9 mmol/L Chloride Level 105 mmol/L Carbon Dioxide Level 31 mmol/L Anion Gap 5.0 mmol/L Blood Urea Nitrogen 6 mg/dl Creatinine 0.49 mg/dl Est Creatinine Clear Calc Drug Dose 115.5 ml/min Estimated GFR () 120.2 Estimated GFR (Non- 103.7 BUN/Creatinine Ratio 12.0 Random Glucose 120 mg/dl Calcium Level 8.6 mg/dl Magnesium Level 1.7 mg/dl Total Bilirubin 1.3 mg/dl Aspartate Amino Transf (AST/SGOT) 44 U/L Alanine Aminotransferase (ALT/SGPT) 159 U/L Alkaline Phosphatase 132 U/L Total Protein 6.1 gm/dl Albumin 2.3 gm/dl Globulin 3.8 gm/dl Albumin/Globulin Ratio 0.6 Assessment and Plan Pt is a 61 yo female with worsening weakness/dizziness x few weeks. Presented with NSTEMI, new systolic heart failure. Unfortunately she had ventricular tachycardia, shock liver and a progressive encephalopathy during her stay exhibited by profound lethargy and unresponsiveness. 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 Allen's notes on 02/12- spoke w/ family and agreeable to PEG tube- case discussed w/ Dr. Lowry - Consult palliative care to discuss future goals w/ patient/family - D5W 08/29 NS + 20 mEq KCL @ 75 ml/hr while NPO and pending PEG placement - Ativan 0.5-1 mg q4 hrs PRN - Hyperammonemia- RESOLVED: Continue Lactulose 30 gm TID - 1:1 at this time Possible Aspiration Pneumonia: Zosyn 4.5 g IV Q6H for aspiration - DAY #6 (last day of treatment 02/14) Hypomagnesium of 1.7: - Treated w/ 1 gm IV on 02/14 - Repeat mag level tomorrow AM ETOH Abuse- STABLE: - Librium and detox protocols weaned and complete - Thiamine, MVA, and Folic acid Tobacco Abuse: NicoDerm patch Elevated LFTs with fatty liver, secondary to ischemic hepatitis from VT- STABLE : - Liver US 01/30- unremarkable sonographic assessment of the hepatic and portal vasculature - Abdominal US 02/04- Moderate gallbladder wall thickening, a nonspecific finding. No gallstones. No biliary ductal dilatation. Small amount of ascites and a right pleural effusion. Increased hepatic echogenicity which may reflect fatty infiltration or hepatocellular disease. - LFTs trending down- repeat CMP tomorrow AM - GI signed off NSTEMI w/ systolic heart failure- STABLE: - Treated w/ IV Heparin drip 01/26-01/29 and IV Lasix - Echo - EF 25% - unable to participate in stress test - ASA 81 mg daily - Coreg 6.25 mg BID and Lisinopril 5 mg daily Dyslipidemia: - Lipitor 40 mg daily - Lipid panel on 01/26/17- reviewed Hypernatremia with metabolic acidosis- RESOLVED: Nephrology signed off Escherichia Coli UTI- RESOLVED: Treatment of Cipro completed Depression/Anxiety- CANNOT ASSESS: Lexapro 10 mg daily GERD: Lansoprazole 30 mg daily GI Prophylaxis: Prevacid, Maalox PRN, IV Zofran PRN DVT Prophylaxis: Lovenox 40 mg SC daily Code Status: LEVEL I, FULL Disposition: Pending PEG tube placement- will need SNF placement- director social welfare following - Prognosis- guarded
--- NOTE | 2017-02-14 12:07 | Gastrointestinal Consultation ---
Gastrointestinal Consultation Date of Consultation: Feb 14, 2017 Attending Physician: Jessenia Consulting Physician: Evaristo Reason for Consultation: PEG placement History of Present Illness Patient is a 61 year old female PMH significant for ETOH abuse, HTN, GERD, anxiety/depression, hyperlipidemia and others listed below brought to the ED by on 01/26/17 for confusion, weakness and an unresponsive episode. GI was consulted on 02/06/17 for elevated LFTs thought to be related to ischemia, which resolved. GI was reconsulted for PEG tube placement. Pt was seen and evaluated this afternoon. Sitter at bedside, no family present. Ms. Mercado is nonresponsive to name and is not interactive on exam. Per patient sitter, Ms. Mercado was more alert this AM. No acute events noted over night, VSS. ROS or history not obtained due to altered mental status. ABD US 02/04/17: Moderate gallbladder wall thickening, a nonspecific finding. No gallstones.No biliary ductal dilatation. Small amount of ascites and a right pleural effusion. Increased hepatic echogenicity which may reflect fatty infiltration or hepatocellular disease. Portal flow not well demonstrated although this may be technical as the main portal vein was patent on exam of January 30, 2017. Past Medical/Surgical History Medical Problems: (1) Acute electrocardiogram changes Status: Acute (2) Dizziness Status: Acute (3) Elevated troponin Status: Acute (4) Hypokalemia Status: Acute (5) Hypomagnesemia Status: Acute (6) Weakness Status: Acute Past Medical History: Duodenal ulcer, Increased alcohol intake, GERD, HTN, Anxiety/depression, NSTEMI , new systolic heart failure, multifactorial encephalopathy Past Surgical History: EGD 05/27/2010 Family History Cancer Hypertension Social History Smoking Status: Smoker Current Status UNK Alcohol Use: occasionally Drug Use: none Marital Status: Housing Status: lives with family Occupation Status: employed Allergies Coded Allergies: No Known Allergies (Verified , 01/05/17) Current Medications Home Meds and Scripts Medications Dose Route/Sig Max Daily Dose Days Date Category Carafate (Sucralfate) 1 Gm Tab 1 Gm PO QID 30 10/09/16 Reported Lexapro (Escitalopram Oxalate) 10 Mg Tab 10 Mg PO DAILY 10/06/16 Reported Lipitor (Atorvastatin Calcium) 40 Mg Tab 40 Mg PO QAM 10/06/16 Reported Omeprazole 20 Mg Tab 20 Mg PO BID 10/06/16 Reported Physical Exam Date Time Temp Pulse Resp B/P (MAP) Pulse Ox O2 Delivery O2 Flow Rate FiO2 02/14/17 08:45 Nasal Cannula 2.0 02/14/17 07:53 36.4 73 20 134/91 (105) 98 Nasal Cannula 2.0 02/14/17 00:00 Nasal Cannula 2.0 02/13/17 23:07 36.8 62 14 127/84 (98) 95 Nasal Cannula 2.0 02/13/17 20:06 79 107/73 (84) 02/13/17 16:00 Nasal Cannula 2.0 02/13/17 15:09 62 20 117/70 (86) 96 Room Air General Appearance: no apparent distress Eyes: PERRL Neck: supple Respiratory/Chest: lungs clear, no respiratory distress, no accessory muscle use Cardiovascular: regular rate, rhythm, no gallop, no JVD Abdomen: normal bowel sounds, non tender, soft, no organomegaly Neurologic/Psych: + pertinent finding (unable to assess mental status as patient was nonresponive to name) Skin: normal color, warm/dry, no rash, + pertinent finding (multiple scattered bruises on bilateral extremities ) Laboratory Results Last 24 Hours Test 02/13/17 19:09 02/14/17 07:35 02/14/17 10:57 Bedside Glucose 143 mg/dl 138 mg/dl Sodium Level 141 mmol/L Potassium Level 3.9 mmol/L Chloride Level 105 mmol/L Carbon Dioxide Level 31 mmol/L Anion Gap 5.0 mmol/L Blood Urea Nitrogen 6 mg/dl Creatinine 0.49 mg/dl Est Creatinine Clear Calc Drug Dose 115.5 ml/min Estimated GFR () 120.2 Estimated GFR (Non- 103.7 BUN/Creatinine Ratio 12.0 Random Glucose 120 mg/dl Calcium Level 8.6 mg/dl Magnesium Level 1.7 mg/dl Total Bilirubin 1.3 mg/dl Aspartate Amino Transf (AST/SGOT) 44 U/L Alanine Aminotransferase (ALT/SGPT) 159 U/L Alkaline Phosphatase 132 U/L Total Protein 6.1 gm/dl Albumin 2.3 gm/dl Globulin 3.8 gm/dl Albumin/Globulin Ratio 0.6 Impression Patient is a 61 year old female with weakness/dizziness prior to admission found to have acute NSTEMI and new systolic heart failure on hospital admission. Run of ventricular tachycardia --> shock liver w/ transaminitis--> multifactorial encephalopathy (not hepatic as there is no sign of cirrhosis on imaging and platelets are normal) --> profound lethargy and unresponsiveness. It appears a thorough workup was obtained for encephalopathy but there has been minimal improvement despite supportive treatment. GI was reconsulted for PEG tube evaluation, per staff respiratory therapist patient had limited PO intake when she was more responsive --> NG tube was placed. It appears palliative care was also asked to evaluate Ms. Mercado today. No family at bedside to discuss PEG tube indications, risks/benefits. Plan Repeat Abd US for evaluation of ascites --> PEG contraindicated if ascites is present Please page [facility] midlevel pager when family is at bedside to discuss PEG Continue present therapy GI will follow. Call with questions or concerns. I saw and evaluated the patient. GI consultation has been requested to consider feeding tube placement. The patient has a history of alcoholic liver disease and was admitted with encephalopathy of unclear etiology. Unfortunately she has continued to decline during the hospital stay. Of note, we were initially consult at last week after she had elevation of her liver associated enzymes which was ultimately attributed to a hypotensive episode related to ventricular tachycardia. The patient is unable to give any historical information today. Physical examination Patient does not answer questions seems to be in mild distress Abdomen slightly protuberant with question of a fluid wave Impression: patient with worsening neurologic function likely to be placed on hospice care, requested for feeding tube placement. Given the patient's history of liver disease we should screen for evidence of ascites. If the patient is found to have ascites this is a relative contraindication to placement of a PEG tube. Recommendations Abdominal ultrasound We'll arrange feeding tube if no ascites is seen
[2017-02-14 14:00] LABS: ARTERIAL BLD GAS O2 SATURATION 90.7 % (90-95); ARTERIAL BLOOD GAS BASE EXCESS 3.6 mEq/L (-9-1.8); ARTERIAL BLOOD GAS HCO3 31 mmol/L (19-24); ARTERIAL BLOOD GAS PO2 70 mm/Hg (80-95); ARTERIAL BLOOD GAS pH 7.27 (7.35-7.45)
[2017-02-14 14:01] LABS: ALLEN TEST POS (POS); O2 ADMINISTRATION 2 L
--- NOTE | 2017-02-14 16:41 | DIAGNOSTIC IMAGING REPORT ---
ASCITES-ABDOMEN LIMITED CLINICAL HISTORY: assess for ascites, request for PEG tube COMPARISON STUDY: Abdominal ultrasound 02/04/2017. FINDINGS: Small right pleural effusion is again noted. Small amount of ascites within the pelvis. IMPRESSION: Small amount of pelvic ascites. Electronically signed by: Obi Parada M.D. 02/14/2017 4:40 PM Dictated Date/Time: 02/14/2017 4:35 PM
[2017-02-14] MEDS ORDERED: LACTULOSE SYRUP 30 GM/45 ML UDP PO ONE (16:50)
--- NOTE | 2017-02-14 16:50 | Critical Care Consultation ---
Critical Care Consultation Date of Consultation: Feb 14, 2017. Attending Physician: Dax Ruelas MD, PhD Reason for Consultation: Hypoxic hypercarbic respiratory failure History of Present Illness Patient is a unfortunate 61-year-old female who initially presented on approximately January 26 whose chief complaint was worsening mental status and confusion and was additionally found to have suffered a non-ST elevation AK. The patient has had a rather extensive workup. She is found to have a significant cardiomyopathy likely due to chronic alcoholism, however, ischemic cardiomyopathy is not totally excluded. Neurology has been following for multifactorial encephalopathy. She is received an EEG showing no epileptiform activity, CT head without acute intracranial findings, an MRI which was largely unremarkable except for small vessel disease and atrophy. Biggest contributor to the organic brain dysfunction may be chronic alcoholism, heavy metal screen is negative, autoimmune panel is unremarkable, and infectious etiologies have been treated. Gastroenterology was consult for an episode of shock liver, and possible PEG placement secondary to poor by mouth intake in the setting of worsening encephalopathy. Currently she is being treated with Zosyn 4.5 g IV every 6 hours for possible aspiration pneumonia, day 6 of treatment. Past Medical/Surgical History #1 encephalopathy #2 alcohol abuse #3 tobacco abuse Number for transaminitis #5 non-ST elevation AK #6 cardiomyopathy #7 dyslipidemia #8 GERD Family History Cancer Hypertension Social History Smoking Status: Smoker Current Status UNK Smokeless Tobacco Use: No Alcohol Use: occasionally Drug Use: none Marital Status: Housing Status: lives with family Occupation Status: employed Allergies Coded Allergies: No Known Allergies (Verified , 01/05/17) Home Medications Scheduled Atorvastatin (Lipitor), 40 MG PO QAM Escitalopram (Lexapro), 10 MG PO DAILY Omeprazole (Omeprazole), 20 MG PO BID Sucralfate (Carafate), 1 GM PO QID Current Inpatient Medications Current Inpatient Medications Medications (Trade) Dose Ordered Sig/Debbie Route Start Time Stop Time Status Last Admin Dose Admin Acetaminophen (Tylenol Tab) 650 mg Q4H PRN PO 01/26/17 14:30 02/25/17 14:29 02/10/17 20:29 650 MG Al Hydrox/Mg Hydrox/Simethicone (Maalox Max Susp) 15 ml Q4H PRN PO 01/26/17 14:30 02/25/17 14:29 Ondansetron HCl (Zofran Inj) 4 mg Q6H PRN IV 6/1/17 14:30 02/25/17 14:29 02/14/17 09:06 4 MG Atorvastatin Calcium (Lipitor Tab) 40 mg QAM PO 01/27/17 09:00 02/26/17 08:59 02/14/17 08:23 40 MG Escitalopram Oxalate (Lexapro Tab) 10 mg DAILY PO 01/27/17 09:00 02/26/17 08:59 02/14/17 08:22 10 MG Nitroglycerin (Nitrostat Tab) 0.4 mg PRN PRN SL 01/26/17 15:00 02/25/17 14:59 Metoprolol Tartrate (Lopressor Iv) 5 mg Q6H PRN IV 01/27/17 15:30 02/26/17 08:29 01/30/17 13:01 5 MG Dextrose (Dextrose 50% 50ML Syringe) 25-50ML OF 50% DW IV FOR... UD PRN IV 01/27/17 13:00 02/26/17 12:59 Carvedilol (Coreg Tab) 6.25 mg BID PO 01/29/17 09:00 02/27/17 08:59 02/14/17 08:23 6.25 MG Lisinopril (Zestril Tab) 5 mg QAM PO 01/29/17 09:00 02/27/17 08:59 02/14/17 08:23 5 MG Lorazepam (Ativan Inj) 1 mg Q4H PRN IV 01/29/17 16:15 02/28/17 16:14 Lorazepam (Ativan Inj) 0.5 mg Q4H PRN IV 01/29/17 16:15 02/28/17 16:14 Nicotine (Nicoderm Cq 21MG Patch) 1 patch QAM TD 01/31/17 09:00 03/02/17 08:59 02/14/17 08:24 1 PATCH Miscellaneous (Remove Nicoderm Patch) 1 ea HS N/A 01/30/17 21:00 03/01/17 20:59 02/13/17 20:06 1 EA Hydrocortisone (Proctozone Hc 2.5% Crm) 1 appln Q8 PRN EXT 01/30/17 18:00 03/01/17 17:59 Enteral Nutritional Formula (Boost Pudding) 1 cup TID PO 02/03/17 14:00 03/05/17 13:59 02/10/17 20:30 1 CUP Enoxaparin Sodium (Lovenox Inj) 40 mg QAM SQ 02/04/17 09:00 03/06/17 08:59 02/13/17 08:50 40 MG Aspirin (Aspirin Chew) 81 mg DAILY NG 02/05/17 09:30 03/07/17 09:29 02/14/17 08:23 81 MG Enteral Nutritional Formula (Fibersource HN) 1,000 ml UD PRN NG 02/05/17 10:30 03/07/17 10:29 Future Hold 02/08/17 19:13 1,000 ML Multivitamins Therapeutic (Cerovite Liquid) 15 ml DAILY@0900 NG 02/06/17 09:00 03/08/17 08:59 02/14/17 08:23 15 ML Thiamine HCl (Vitamin B-1 Tab) 100 mg DAILY@0900 NG 02/06/17 09:00 03/08/17 08:59 Future hold 02/14/17 08:23 100 MG Folic Acid (Folvite Tab) 1 mg DAILY@0900 NG 02/06/17 09:00 03/08/17 08:59 02/14/17 08:24 1 MG Lansoprazole (Prevacid Solutab) 30 mg DAILY NG 02/06/17 09:00 03/08/17 08:59 02/14/17 08:23 30 MG Lorazepam 1 mg/ Syringe 1 ml @ 1 mls/min Q4H PRN IV 02/06/17 20:45 03/08/17 20:44 Lorazepam 0.5 mg/ Syringe 1 ml @ 1 mls/min Q4H PRN IV 02/06/17 20:45 03/08/17 20:44 02/06/17 20:59 1 MLS/MIN Sterile Water (Tube Feeding Water Flush) 250 ea Q8 NG 02/07/17 14:00 03/07/17 11:59 Future Hold 02/10/17 06:09 250 EA Piperacillin Sod/ Tazobactam Sod (Consult) 1 ea UD PRN N/A 02/08/17 14:15 02/15/17 03:00 Piperacillin Sod/ Tazobactam Sod 3.375 gm/Dextrose 115 ml @ 28.75 mls/ hr Q8@0400,1200,2000 IV 02/08/17 20:00 02/15/17 03:00 02/14/17 12:03 28.75 MLS/HR Potassium Chloride/Dextrose/ Sod Cl 1,000 ml @ 75 mls/hr [id number] IV 02/12/17 14:00 03/14/17 13:59 02/14/17 03:36 75 MLS/HR Review of Systems Unable to obtain due to patient condition. Physical Exam Date Time Temp Pulse Resp B/P (MAP) Pulse Ox O2 Delivery O2 Flow Rate FiO2 02/14/17 13:49 36.8 61 12 93 2.0 02/14/17 13:11 61 12 133/82 (99) 93 Nasal Cannula 2.0 02/14/17 08:45 Nasal Cannula 2.0 02/14/17 07:53 36.4 73 20 134/91 (105) 98 Nasal Cannula 2.0 02/14/17 00:00 Nasal Cannula 2.0 02/13/17 23:07 36.8 62 14 127/84 (98) 95 Nasal Cannula 2.0 02/13/17 20:06 79 107/73 (84) 02/13/17 16:00 Nasal Cannula 2.0 General Appearance: WD/WN Head: normocephalic, atraumatic Eyes: PERRLA, EOMI Neck: normal range of motion, no tenderness, trachea midline, no stridor, supple, no thyromegaly Respiratory: breath sounds normal Cardiovasular: regular rate/rhythm, no M/G/R Abdomen: non tender, normal bowel sounds, no rebound, no masses, no guarding Upper Extremities: edema Lower Extremities: edema Edema: Bilateral UE (1+), Bilateral LE (1+) Neuro: normal motor exam, confused, global weakness, other (arouses to verbal stimuli, waxing and waning mental status, alert to self not to place and time) Laboratory Results Last 24 Hours Test 02/13/17 19:09 02/14/17 07:35 02/14/17 10:57 02/14/17 13:49 Bedside Glucose 143 mg/dl 138 mg/dl Sodium Level 141 mmol/L Potassium Level 3.9 mmol/L Chloride Level 105 mmol/L Carbon Dioxide Level 31 mmol/L Anion Gap 5.0 mmol/L Blood Urea Nitrogen 6 mg/dl Creatinine 0.49 mg/dl Est Creatinine Clear Calc Drug Dose 115.5 ml/min Estimated GFR () 120.2 Estimated GFR (Non- 103.7 BUN/Creatinine Ratio 12.0 Random Glucose 120 mg/dl Calcium Level 8.6 mg/dl Magnesium Level 1.7 mg/dl Total Bilirubin 1.3 mg/dl Aspartate Amino Transf (AST/SGOT) 44 U/L Alanine Aminotransferase (ALT/SGPT) 159 U/L Alkaline Phosphatase 132 U/L Total Protein 6.1 gm/dl Albumin 2.3 gm/dl Globulin 3.8 gm/dl Albumin/Globulin Ratio 0.6 Arterial Blood pH 7.27 Arterial Blood Partial Pressure CO2 69 mmHg Arterial Blood Partial Pressure O2 70 mm/Hg Arterial Blood HCO3 31 mmol/L Arterial Blood Oxygen Saturation 90.7 % Arterial Blood Base Excess 3.6 mEq/L Arterial Blood Gas Delivery 2 L Josr Test POS Ammonia 68.0 umol/L Diagnostic Results I reviewed the radiology report of the brain MRI dated 02/08/2017, CT head dated 02/08/2017. A limited bedside ultrasound was performed, the patient does have trace ascites and lower abdominal pelvis. She has a globally depressed ejection fraction with a trace pericardial effusion. Assessment & Plan Impression/Plan: Neuro: Multifactorial encephalopathy: Multifactorial delirium * Ammonia level 68 today up from 17 two days ago, would continue lactulose and likely add rifaximin given trace ascites seen on ultrasound * Patient previously received thiamine 250 mg every 8 hours for 3 days then 300 mg daily for 3 days * Consider continuing a repeat aggressive thiamine replacement regimen (500 mg 3 times a day for 2 days then 250 mg IV daily for 5 days and then continue 100 mg daily) * Consider carnitine supplementation * Engage in sleep hygiene, shades up minimal napping during the day, minimal interventions at night lights down Resp: Hypoxic hypercarbic respiratory failure * Finishing Zosyn for presumed aspiration pneumonia * White count within normal limits * Afebrile * Obtain chest x-ray * Could be at risk for MARY given body habitus and encephalopathy * Would place on end-tidal CO2 monitoring to watch for apnea episodes or worsening hypoventilation. CV: Cardiomyopathy * On Coreg and lisinopril Fluids/Renal: Acute respiratory acidosis * Likely has anasarca secondary to chronic cirrhosis and poor nutritional status ID: Afebrile, negative white count, finishing antibiotics, previously treated UTI, no pain to suggest SBP GI/Nutrition: Possible PEG placement for nutritional support * Obesity, BMI 30 * Likely has concomitant protein calorie malnutrition * Mild nutritional deficiencies being replaced Heme:, Thrombocytopenia: Improving * On DVT prophylaxis Endocrine: Blood sugars ranging 90s to 140s CODE STATUS: DO NOT RESUSCITATE Given the multiple comorbidities and the likelihood of a multifactorial delirium , I can agree with a DO NOT RESUSCITATE as it is difficult to tell whether this delirium is reversible and may very well have long-lasting neurocognitive difficulties, especially in the setting of prior neurocognitive complaints being worked up in the outpatient setting by neurology. If the patient were to suffer cardiac arrest this would likely create a further complication and stress response for which the brain would have to recover. Nutritional support would be encouraged, this can be achieved with a small bore nasogastric tube, decision-making for PEG placement certainly appropriate and will defer to primary team regarding those issues. At the present time the patient does not appear to be critically ill, and the critical care service will sign off. Please reconsult us if any additional questions or concerns arise.
--- NOTE | 2017-02-14 16:58 | DIAGNOSTIC IMAGING REPORT ---
CHEST ONE VIEW PORTABLE HISTORY: hypoxia COMPARISON: Chest 02/08/2017. FINDINGS: No pneumothorax. Slight improvement in the pulmonary edema. Left upper lobe airspace opacities have progressed. Small bilateral pleural effusions have progressed. Feeding tube terminates below the diaphragm. The tip is not included in this study. IMPRESSION: 1. Slight improvement in the moderate to severe pulmonary edema. 2. Progression of the left upper lobe airspace opacity and small bilateral pleural effusions. Electronically signed by: Obi Parada M.D. 02/14/2017 4:57 PM Dictated Date/Time: 02/14/2017 4:56 PM
[2017-02-14] MEDS ORDERED: LACTULOSE SYRUP 30 GM/45 ML UDP PO PRN (17:00)
[2017-02-14] MEDS: RIFAXIMIN TAB 550 MG TAB PO SCH (21:10)
[2017-02-14] MEDS: THIAMINE HCL INJ 500 MG in SODIUM CHLORIDE 0.9% 100ML IV SCH (21:33)
[2017-02-14] MEDS ORDERED: THIAMINE HCL INJ 500 MG in SODIUM CHLORIDE 0.9% 50ML 50 ML IV SCH (22:00)
[2017-02-15] VITALS (13 sets, daily range): BP systolic 95–132; BP diastolic 56–85; PULSE 56–99; TEMP 36.2–36.7; O2SAT 95–100
[2017-02-15] MEDS: THIAMINE HCL INJ 500 MG in SODIUM CHLORIDE 0.9% 100ML IV SCH ×3 (06:05→21:21)
--- NOTE | 2017-02-15 07:53 | Gastroenterology Progress Note ---
Progress Note Subjective ABD US 02/14/17: Small right pleural effusion is again noted. Small amount of ascites within the pelvis. Medications Current Inpatient Medications Medications (Trade) Dose Ordered Sig/Debbie Route Start Time Stop Time Status Last Admin Dose Admin Acetaminophen (Tylenol Tab) 650 mg Q4H PRN PO 01/26/17 14:30 02/25/17 14:29 02/10/17 20:29 650 MG Al Hydrox/Mg Hydrox/Simethicone (Maalox Max Susp) 15 ml Q4H PRN PO 01/26/17 14:30 02/25/17 14:29 Ondansetron HCl (Zofran Inj) 4 mg Q6H PRN IV 01/26/17 14:30 02/25/17 14:29 02/14/17 09:06 4 MG Atorvastatin Calcium (Lipitor Tab) 40 mg QAM PO 01/27/17 09:00 02/26/17 08:59 02/14/17 08:23 40 MG Escitalopram Oxalate (Lexapro Tab) 10 mg DAILY PO 01/27/17 09:00 02/26/17 08:59 02/14/17 08:22 10 MG Nitroglycerin (Nitrostat Tab) 0.4 mg PRN PRN SL 01/26/17 15:00 02/25/17 14:59 Metoprolol Tartrate (Lopressor Iv) 5 mg Q6H PRN IV 01/27/17 15:30 02/26/17 08:29 01/30/17 13:01 5 MG Dextrose (Dextrose 50% 50ML Syringe) 25-50ML OF 50% DW IV FOR... UD PRN IV 01/27/17 13:00 02/26/17 12:59 Carvedilol (Coreg Tab) 6.25 mg BID PO 01/29/17 09:00 02/27/17 08:59 02/14/17 21:08 6.25 MG Lisinopril (Zestril Tab) 5 mg QAM PO 01/29/17 09:00 02/27/17 08:59 02/14/17 08:23 5 MG Lorazepam (Ativan Inj) 1 mg Q4H PRN IV 01/29/17 16:15 02/28/17 16:14 Lorazepam (Ativan Inj) 0.5 mg Q4H PRN IV 01/29/17 16:15 02/28/17 16:14 Nicotine (Nicoderm Cq 21MG Patch) 1 patch QAM TD 01/31/17 09:00 03/02/17 08:59 02/14/17 08:24 1 PATCH Miscellaneous (Remove Nicoderm Patch) 1 ea HS N/A 01/30/17 21:00 03/01/17 20:59 02/14/17 21:00 1 EA Hydrocortisone (Proctozone Hc 2.5% Crm) 1 appln Q8 PRN EXT 01/30/17 18:00 03/01/17 17:59 Enteral Nutritional Formula (Boost Pudding) 1 cup TID PO 02/03/17 14:00 03/05/17 13:59 02/10/17 20:30 1 CUP Enoxaparin Sodium (Lovenox Inj) 40 mg QAM SQ 02/04/17 09:00 03/06/17 08:59 02/13/17 08:50 40 MG Aspirin (Aspirin Chew) 81 mg DAILY NG 02/05/17 09:30 03/07/17 09:29 02/14/17 08:23 81 MG Enteral Nutritional Formula (Fibersource HN) 1,000 ml UD PRN NG 02/05/17 10:30 03/07/17 10:29 Future Hold 02/08/17 19:13 1,000 ML Folic Acid (Folvite Tab) 1 mg DAILY@0900 NG 02/06/17 09:00 03/08/17 08:59 02/14/17 08:24 1 MG Lansoprazole (Prevacid Solutab) 30 mg DAILY NG 02/06/17 09:00 03/08/17 08:59 02/14/17 08:23 30 MG Lorazepam 1 mg/ Syringe 1 ml @ 1 mls/min Q4H PRN IV 02/06/17 20:45 03/08/17 20:44 Lorazepam 0.5 mg/ Syringe 1 ml @ 1 mls/min Q4H PRN IV 02/06/17 20:45 03/08/17 20:44 02/06/17 20:59 1 MLS/MIN Sterile Water (Tube Feeding Water Flush) 250 ea Q8 NG 02/07/17 14:00 03/07/17 11:59 Future Hold 02/10/17 06:09 250 EA Potassium Chloride/Dextrose/ Sod Cl 1,000 ml @ 75 mls/hr [id number] IV 02/12/17 14:00 03/14/17 13:59 02/14/17 18:25 75 MLS/HR Thiamine HCl 200 mg/Sodium Chloride 52 ml @ 208 mls/hr QAM IV 02/17/17 09:00 02/21/17 09:14 Thiamine HCl (Vitamin B-1 Tab) 100 mg QAM PO 02/22/17 09:00 03/24/17 08:59 Lactulose (Chronulac Syrup) 30 gm Q6 PRN PO 02/14/17 17:00 03/16/17 16:59 Rifaximin (Xifaxan Tab) 550 mg BID PO 02/14/17 21:00 03/16/17 20:59 02/14/17 21:10 550 MG Multivitamins Therapeutic (Cerovite Liquid) 15 ml QAM PO 02/15/17 09:00 03/17/17 08:59 Thiamine HCl 500 mg/Sodium Chloride 105 ml @ 210 mls/hr Q8 IV 02/14/17 22:00 02/16/17 14:29 02/15/17 06:05 210 MLS/HR Objective Vital Signs Date Time Temp Pulse Resp B/P (MAP) Pulse Ox O2 Delivery O2 Flow Rate FiO2 02/15/17 07:22 36.5 70 18 113/73 (86) 100 1.0 02/15/17 06:59 60 95 50 02/15/17 04:55 36.2 70 20 95/56 (69) 100 BiPAP 02/15/17 04:00 BiPAP 02/15/17 02:34 67 96 50 02/15/17 00:00 BiPAP 02/14/17 23:54 62 96 50 02/14/17 21:07 70 101/69 (80) 100 BiPAP 2.0 02/14/17 20:32 65 95 50 02/14/17 20:00 100 BiPAP 2.0 02/14/17 19:11 65 96 50 02/14/17 18:38 36.8 66 20 100/60 (73) 100 BiPAP 2.0 02/14/17 17:04 65 97 02/14/17 16:00 93 Nasal Cannula 2.0 BiPAP 02/14/17 15:31 36.4 63 18 129/83 (98) 93 02/14/17 13:49 36.8 61 12 93 2.0 02/14/17 13:11 61 12 133/82 (99) 93 Nasal Cannula 2.0 02/14/17 08:45 Nasal Cannula 2.0 Laboratory Results Last 24 Hours Test 02/14/17 10:57 02/14/17 13:49 02/14/17 17:46 02/15/17 05:39 Bedside Glucose 138 mg/dl 125 mg/dl Arterial Blood pH 7.27 Arterial Blood Partial Pressure CO2 69 mmHg Arterial Blood Partial Pressure O2 70 mm/Hg Arterial Blood HCO3 31 mmol/L Arterial Blood Oxygen Saturation 90.7 % Arterial Blood Base Excess 3.6 mEq/L Arterial Blood Gas Delivery 2 L Josr Test POS Ammonia 68.0 umol/L Magnesium Level 1.7 mg/dl Test 02/15/17 07:07 Bedside Glucose 99 mg/dl
[2017-02-15] MEDS: BOOST VANILLA PUDDING CUP PO SCH ×3 (08:01→21:20)
[2017-02-15] MEDS: NICOTINE 21 MG/24 HR TDSY TD SCH (08:07)
[2017-02-15] MEDS: ATORVASTATIN 40 MG TAB PO SCH (08:08)
[2017-02-15] MEDS: ASPIRIN 81 MG CHEW NG SCH (08:08)
[2017-02-15] MEDS: ESCITALOPRAM OXALATE 10 MG TAB PO SCH (08:08)
[2017-02-15] MEDS: LANSOPRAZOLE SOLUTAB 30 MG NG SCH (08:08)
[2017-02-15] MEDS: LISINOPRIL 5 MG TAB PO SCH (08:08)
[2017-02-15] MEDS: RIFAXIMIN TAB 550 MG TAB PO SCH ×2 (08:08→21:22)
[2017-02-15] MEDS: CARVEDILOL 6.25 MG TAB PO SCH ×2 (08:08→21:22)
[2017-02-15] MEDS: MULTIVITAMINS W/MINERALS 15ML UDP PO SCH (08:09)
[2017-02-15] MEDS: ENOXAPARIN 40 MG/0.4 ML SYR SQ SCH (08:10)
[2017-02-15] MEDS: D5W AND 1/2NSS + 20MEQ KCL 1,000 ML IV SCH ×2 (08:36→21:21)
[2017-02-15] MEDS: MAGNESIUM SULFATE 1GM / D5W 1 GM in PREMIXED IN D5W 100 ML IV SCH ×2 (09:22→10:32)
--- NOTE | 2017-02-15 10:15 | Gastroenterology Progress Note ---
Progress Note Date of Service: Feb 15, 2017 Subjective Pt evaluation today including: physical exam, chart review Pt was seen and evaluated this AM. No family at bedside - status of PEG tube still not discussed. No acute events over night per patient sitter. ROS not obtained due to mental status. ABD US: Small amount of pelvic ascites. Medications Current Inpatient Medications Medications (Trade) Dose Ordered Sig/Debbie Route Start Time Stop Time Status Last Admin Dose Admin Acetaminophen (Tylenol Tab) 650 mg Q4H PRN PO 01/26/17 14:30 02/25/17 14:29 02/10/17 20:29 650 MG Al Hydrox/Mg Hydrox/Simethicone (Maalox Max Susp) 15 ml Q4H PRN PO 01/26/17 14:30 02/25/17 14:29 Ondansetron HCl (Zofran Inj) 4 mg Q6H PRN IV 01/26/17 14:30 02/25/17 14:29 02/14/17 09:06 4 MG Atorvastatin Calcium (Lipitor Tab) 40 mg QAM PO 01/27/17 09:00 02/26/17 08:59 02/15/17 08:08 40 MG Escitalopram Oxalate (Lexapro Tab) 10 mg DAILY PO 01/27/17 09:00 02/26/17 08:59 02/15/17 08:08 10 MG Nitroglycerin (Nitrostat Tab) 0.4 mg PRN PRN SL 01/26/17 15:00 02/25/17 14:59 Metoprolol Tartrate (Lopressor Iv) 5 mg Q6H PRN IV 01/27/17 15:30 02/26/17 08:29 01/30/17 13:01 5 MG Dextrose (Dextrose 50% 50ML Syringe) 25-50ML OF 50% DW IV FOR... UD PRN IV 01/27/17 13:00 02/26/17 12:59 Carvedilol (Coreg Tab) 6.25 mg BID PO 01/29/17 09:00 02/27/17 08:59 02/15/17 08:08 6.25 MG Lisinopril (Zestril Tab) 5 mg QAM PO 01/29/17 09:00 02/27/17 08:59 02/15/17 08:08 5 MG Lorazepam (Ativan Inj) 1 mg Q4H PRN IV 01/29/17 16:15 02/28/17 16:14 Lorazepam (Ativan Inj) 0.5 mg Q4H PRN IV 01/29/17 16:15 02/28/17 16:14 Nicotine (Nicoderm Cq 21MG Patch) 1 patch QAM TD 01/31/17 09:00 03/02/17 08:59 02/15/17 08:07 1 PATCH Miscellaneous (Remove Nicoderm Patch) 1 ea HS N/A 01/30/17 21:00 03/01/17 20:59 02/14/17 21:00 1 EA Hydrocortisone (Proctozone Hc 2.5% Crm) 1 appln Q8 PRN EXT 01/30/17 18:00 03/01/17 17:59 Enteral Nutritional Formula (Boost Pudding) 1 cup TID PO 02/03/17 14:00 03/05/17 13:59 02/10/17 20:30 1 CUP Enoxaparin Sodium (Lovenox Inj) 40 mg QAM SQ 02/04/17 09:00 03/06/17 08:59 02/15/17 08:10 40 MG Aspirin (Aspirin Chew) 81 mg DAILY NG 02/05/17 09:30 03/07/17 09:29 02/15/17 08:08 81 MG Enteral Nutritional Formula (Fibersource HN) 1,000 ml UD PRN NG 02/05/17 10:30 03/07/17 10:29 Future Hold 02/08/17 19:13 1,000 ML Folic Acid (Folvite Tab) 1 mg DAILY@0900 NG 02/06/17 09:00 03/08/17 08:59 02/15/17 08:08 1 MG Lansoprazole (Prevacid Solutab) 30 mg DAILY NG 02/06/17 09:00 03/08/17 08:59 02/15/17 08:08 30 MG Lorazepam 1 mg/ Syringe 1 ml @ 1 mls/min Q4H PRN IV 02/06/17 20:45 03/08/17 20:44 Lorazepam 0.5 mg/ Syringe 1 ml @ 1 mls/min Q4H PRN IV 02/06/17 20:45 03/08/17 20:44 02/06/17 20:59 1 MLS/MIN Sterile Water (Tube Feeding Water Flush) 250 ea Q8 NG 02/07/17 14:00 03/07/17 11:59 Future Hold 02/10/17 06:09 250 EA Potassium Chloride/Dextrose/ Sod Cl 1,000 ml @ 75 mls/hr [id number] IV 02/12/17 14:00 03/14/17 13:59 02/15/17 08:36 75 MLS/HR Thiamine HCl 200 mg/Sodium Chloride 52 ml @ 208 mls/hr QAM IV 02/17/17 09:00 02/21/17 09:14 Thiamine HCl (Vitamin B-1 Tab) 100 mg QAM PO 02/22/17 09:00 03/24/17 08:59 Lactulose (Chronulac Syrup) 30 gm Q6 PRN PO 02/14/17 17:00 03/16/17 16:59 Rifaximin (Xifaxan Tab) 550 mg BID PO 02/14/17 21:00 03/16/17 20:59 02/15/17 08:08 550 MG Multivitamins Therapeutic (Cerovite Liquid) 15 ml QAM PO 02/15/17 09:00 03/17/17 08:59 02/15/17 08:09 15 ML Thiamine HCl 500 mg/Sodium Chloride 105 ml @ 210 mls/hr Q8 IV 02/14/17 22:00 02/16/17 14:29 02/15/17 06:05 210 MLS/HR Magnesium Sulfate 1 gm/Prmx 100 ml @ 100 mls/hr Q1H IV 02/15/17 09:00 02/15/17 10:59 02/15/17 09:22 100 MLS/HR Objective Vital Signs Date Time Temp Pulse Resp B/P (MAP) Pulse Ox O2 Delivery O2 Flow Rate FiO2 02/15/17 08:15 100 BiPAP 50 02/15/17 07:22 36.5 70 18 113/73 (86) 100 1.0 02/15/17 06:59 60 95 50 02/15/17 04:55 36.2 70 20 95/56 (69) 100 BiPAP 02/15/17 04:00 BiPAP 02/15/17 02:34 67 96 50 02/15/17 00:00 BiPAP 02/14/17 23:54 62 96 50 02/14/17 21:07 70 101/69 (80) 100 BiPAP 2.0 02/14/17 20:32 65 95 50 02/14/17 20:00 100 BiPAP 2.0 02/14/17 19:11 65 96 50 02/14/17 18:38 36.8 66 20 100/60 (73) 100 BiPAP 2.0 02/14/17 17:04 65 97 02/14/17 16:00 93 Nasal Cannula 2.0 BiPAP 02/14/17 15:31 36.4 63 18 129/83 (98) 93 02/14/17 13:49 36.8 61 12 93 2.0 02/14/17 13:11 61 12 133/82 (99) 93 Nasal Cannula 2.0 Physical Exam General Appearance: no apparent distress Respiratory/Chest: lungs clear, normal breath sounds Cardiovascular: regular rate, rhythm Abdomen: normal bowel sounds, soft, no organomegaly, + distended Laboratory Results Last 24 Hours Test 02/14/17 10:57 02/14/17 13:49 02/14/17 17:46 02/15/17 05:39 Bedside Glucose 138 mg/dl 125 mg/dl Arterial Blood pH 7.27 Arterial Blood Partial Pressure CO2 69 mmHg Arterial Blood Partial Pressure O2 70 mm/Hg Arterial Blood HCO3 31 mmol/L Arterial Blood Oxygen Saturation 90.7 % Arterial Blood Base Excess 3.6 mEq/L Arterial Blood Gas Delivery 2 L Josr Test POS Ammonia 68.0 umol/L Magnesium Level 1.7 mg/dl Test 02/15/17 07:07 02/15/17 09:05 Bedside Glucose 99 mg/dl Ammonia 56.0 umol/L Assessment and Plan Patient is a 61 year old female with weakness/dizziness prior to admission found to have acute NSTEMI and new systolic heart failure on hospital admission. Run of ventricular tachycardia --> shock liver w/ transaminitis--> multifactorial encephalopathy (not hepatic as there is no sign of cirrhosis on imaging and platelets are normal) --> profound lethargy and unresponsiveness. It appears a thorough workup was obtained for encephalopathy but there has been minimal improvement despite supportive treatment. GI was reconsulted for PEG tube evaluation, per balance staff staker patient had limited PO intake when she was more responsive --> NG tube was placed. It appears palliative care was also asked to evaluate Ms. Mercado today. No family at bedside to discuss PEG tube indications, risks/benefits. Plan Abd US with mild ascites --> PEG contraindicated if ascites is present Please page [facility] midlevel pager when family is at bedside to discuss PEG Continue present therapy GI will follow. Call with questions or concerns. I saw and evaluated the patient. We did evaluate her for placement of a feeding tube. She does have mild amount of ascites which could complicate placement of the feeding tube. Perhaps the patient is best served with nasogastric feeding using a feeding tube. Please let us know if we can be of any further assistance with this patient.
[2017-02-15] MEDS ORDERED: MAGNESIUM SULFATE 1GM / D5W 1 GM in PREMIXED IN D5W 100 ML IV STA (12:45)
--- NOTE | 2017-02-15 14:02 | Hospitalist Progress Note ---
Hospitalist Progress Note Date of Service Feb 15, 2017. Subjective Pt evaluation today including: physical exam, chart review, lab review, review of studies, review of inpatient medication list Voiding: miguel catheter in place Patient resting in bed w/ no signs of acute distress, biPAP on, vitals stable. Easily aroused, but quickly falls back to sleep. ROS could not be obtained secondary to mental status. Medications Current Inpatient Medications Medications (Trade) Dose Ordered Sig/Debbie Route Start Time Stop Time Status Last Admin Dose Admin Acetaminophen (Tylenol Tab) 650 mg Q4H PRN PO 01/26/17 14:30 02/25/17 14:29 02/10/17 20:29 650 MG Al Hydrox/Mg Hydrox/Simethicone (Maalox Max Susp) 15 ml Q4H PRN PO 01/26/17 14:30 02/25/17 14:29 Ondansetron HCl (Zofran Inj) 4 mg Q6H PRN IV 01/26/17 14:30 02/25/17 14:29 02/14/17 09:06 4 MG Atorvastatin Calcium (Lipitor Tab) 40 mg QAM PO 01/27/17 09:00 02/26/17 08:59 02/15/17 08:08 40 MG Escitalopram Oxalate (Lexapro Tab) 10 mg DAILY PO 01/27/17 09:00 02/26/17 08:59 02/15/17 08:08 10 MG Nitroglycerin (Nitrostat Tab) 0.4 mg PRN PRN SL 01/26/17 15:00 02/25/17 14:59 Metoprolol Tartrate (Lopressor Iv) 5 mg Q6H PRN IV 01/27/17 15:30 02/26/17 08:29 01/30/17 13:01 5 MG Dextrose (Dextrose 50% 50ML Syringe) 25-50ML OF 50% DW IV FOR... UD PRN IV 01/27/17 13:00 02/26/17 12:59 Carvedilol (Coreg Tab) 6.25 mg BID PO 01/29/17 09:00 02/27/17 08:59 02/15/17 08:08 6.25 MG Lisinopril (Zestril Tab) 5 mg QAM PO 01/29/17 09:00 7/3/17 08:59 02/15/17 08:08 5 MG Lorazepam (Ativan Inj) 1 mg Q4H PRN IV 01/29/17 16:15 02/28/17 16:14 Lorazepam (Ativan Inj) 0.5 mg Q4H PRN IV 01/29/17 16:15 02/28/17 16:14 Nicotine (Nicoderm Cq 21MG Patch) 1 patch QAM TD 01/31/17 09:00 03/02/17 08:59 02/15/17 08:07 1 PATCH Miscellaneous (Remove Nicoderm Patch) 1 ea HS N/A 01/30/17 21:00 03/01/17 20:59 02/14/17 21:00 1 EA Hydrocortisone (Proctozone Hc 2.5% Crm) 1 appln Q8 PRN EXT 01/30/17 18:00 03/01/17 17:59 Enteral Nutritional Formula (Boost Pudding) 1 cup TID PO 02/03/17 14:00 03/05/17 13:59 02/10/17 20:30 1 CUP Enoxaparin Sodium (Lovenox Inj) 40 mg QAM SQ 02/04/17 09:00 03/06/17 08:59 02/15/17 08:10 40 MG Aspirin (Aspirin Chew) 81 mg DAILY NG 02/05/17 09:30 03/07/17 09:29 02/15/17 08:08 81 MG Enteral Nutritional Formula (Fibersource HN) 1,000 ml UD PRN NG 02/05/17 10:30 03/07/17 10:29 Future Hold 02/08/17 19:13 1,000 ML Folic Acid (Folvite Tab) 1 mg DAILY@0900 NG 02/06/17 09:00 03/08/17 08:59 02/15/17 08:08 1 MG Lansoprazole (Prevacid Solutab) 30 mg DAILY NG 02/06/17 09:00 03/08/17 08:59 02/15/17 08:08 30 MG Lorazepam 1 mg/ Syringe 1 ml @ 1 mls/min Q4H PRN IV 02/06/17 20:45 03/08/17 20:44 Lorazepam 0.5 mg/ Syringe 1 ml @ 1 mls/min Q4H PRN IV 02/06/17 20:45 03/08/17 20:44 02/06/17 20:59 1 MLS/MIN Sterile Water (Tube Feeding Water Flush) 250 ea Q8 NG 02/07/17 14:00 03/07/17 11:59 Future Hold 02/10/17 06:09 250 EA Potassium Chloride/Dextrose/ Sod Cl 1,000 ml @ 75 mls/hr [id number] IV 02/12/17 14:00 03/14/17 13:59 02/15/17 08:36 75 MLS/HR Thiamine HCl 200 mg/Sodium Chloride 52 ml @ 208 mls/hr QAM IV 02/17/17 09:00 02/21/17 09:14 Thiamine HCl (Vitamin B-1 Tab) 100 mg QAM PO 02/22/17 09:00 03/24/17 08:59 Lactulose (Chronulac Syrup) 30 gm Q6 PRN PO 02/14/17 17:00 03/16/17 16:59 Rifaximin (Xifaxan Tab) 550 mg BID PO 02/14/17 21:00 03/16/17 20:59 02/15/17 08:08 550 MG Multivitamins Therapeutic (Cerovite Liquid) 15 ml QAM PO 02/15/17 09:00 03/17/17 08:59 02/15/17 08:09 15 ML Thiamine HCl 500 mg/Sodium Chloride 105 ml @ 210 mls/hr Q8 IV 02/14/17 22:00 02/16/17 14:29 02/15/17 06:05 210 MLS/HR Magnesium Sulfate 1 gm/Prmx 100 ml @ 100 mls/hr NOW STAT IV 02/15/17 12:45 02/15/17 13:44 02/15/17 13:30 100 MLS/HR Objective Vital Signs Date Time Temp Pulse Resp B/P (MAP) Pulse Ox O2 Delivery O2 Flow Rate FiO2 02/15/17 12:15 100 BiPAP 50 02/15/17 11:17 36.5 56 12 95/67 (76) 100 BiPAP 1.0 02/15/17 08:15 100 BiPAP 50 02/15/17 07:22 36.5 70 18 113/73 (86) 100 1.0 02/15/17 06:59 60 95 50 02/15/17 04:55 36.2 70 20 95/56 (69) 100 BiPAP 02/15/17 04:00 BiPAP 02/15/17 02:34 67 96 50 02/15/17 00:00 BiPAP 02/14/17 23:54 62 96 50 02/14/17 21:07 70 101/69 (80) 100 BiPAP 2.0 02/14/17 20:32 65 95 50 02/14/17 20:00 100 BiPAP 2.0 02/14/17 19:11 65 96 50 02/14/17 18:38 36.8 66 20 100/60 (73) 100 BiPAP 2.0 02/14/17 17:04 65 97 02/14/17 16:00 93 Nasal Cannula 2.0 BiPAP 02/14/17 15:31 36.4 63 18 129/83 (98) 93 02/14/17 13:49 36.8 61 12 93 2.0 Physical Exam General Appearance: no apparent distress, + pertinent finding (BiPAP) Eyes: PERRL Neck: supple Respiratory/Chest: lungs clear, no respiratory distress, no accessory muscle use Cardiovascular: regular rate, rhythm Abdomen: normal bowel sounds, non tender, soft Extremities: no pedal edema, no calf tenderness Neurologic/Psychiatric: + pertinent finding (lethargic; easily aroused ) Skin: normal color, warm/dry, no rash Laboratory Results Last 24 Hours Test 02/14/17 13:49 02/14/17 17:46 02/15/17 05:39 02/15/17 07:07 Arterial Blood pH 7.27 Arterial Blood Partial Pressure CO2 69 mmHg Arterial Blood Partial Pressure O2 70 mm/Hg Arterial Blood HCO3 31 mmol/L Arterial Blood Oxygen Saturation 90.7 % Arterial Blood Base Excess 3.6 mEq/L Arterial Blood Gas Delivery 2 L Josr Test POS Ammonia 68.0 umol/L Bedside Glucose 125 mg/dl 99 mg/dl Magnesium Level 1.7 mg/dl Test 02/15/17 09:05 Ammonia 56.0 umol/L Assessment and Plan Pt is a 61 yo female with worsening weakness/dizziness x few weeks. Presented with NSTEMI, new systolic heart failure. Unfortunately she had ventricular tachycardia, shock liver and a progressive encephalopathy during her stay exhibited by profound lethargy and unresponsiveness. 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 Allen's notes on 02/12- spoke w/ family and agreeable to PEG tube- case discussed w/ Dr. Lowry -- PEG tube is contraindicated due to ascites - Consult palliative care to discuss future goals w/ patient/family -- Meeting on 02/15 @1500 to discuss goals and contraindication of PEG tube - D5W 08/29 NS + 20 mEq KCL @ 75 ml/hr while NPO - Ativan 0.5-1 mg q4 hrs PRN - Hyperammonemia: Continue Lactulose 30 gm q6 hrs PRN and Xifaxan 550 mg BID- repeat ammonia level tomorrow AM - ABGs reviewed on 02/14: Hypoxic hypercarbic respiratory failure- continue BiPAP - 1:1 at this time Possible aspiration pneumonia: Completed Zosyn 4.5 g IV Q6H for aspiration x1 week Hypomagnesium of 1.7: - Treated w/ 1 gm IV x3 bags on 02/15 - Repeat mag level tomorrow AM ETOH Abuse- STABLE: - Librium and detox protocols weaned and completed - Repeat aggressive thiamine regimen: 500 mg 3 times a day for 2 days then 250 mg IV daily for 5 days and then continue 100 mg daily (started on 02/14 by medication reconciliation technician) Tobacco Abuse: NicoDerm patch Elevated LFTs with fatty liver, secondary to ischemic hepatitis from VT- STABLE : - Liver US 01/30- unremarkable sonographic assessment of the hepatic and portal vasculature - Abdominal US 02/04- Moderate gallbladder wall thickening, a nonspecific finding. No gallstones. No biliary ductal dilatation. Small amount of ascites and a right pleural effusion. Increased hepatic echogenicity which may reflect fatty infiltration or hepatocellular disease. - LFTs trending down NSTEMI w/ systolic heart failure- STABLE: - Treated w/ IV Heparin drip 01/26-01/29 and IV Lasix - Echo - EF 25% - unable to participate in stress test - ASA 81 mg daily - Continue Coreg 6.25 mg BID - Will hold Lisinopril 5 mg daily on 02/15 due to hypotension Dyslipidemia: - Lipitor 40 mg daily - Lipid panel on 01/26/17- reviewed Hypernatremia with metabolic acidosis- RESOLVED: Nephrology signed off Escherichia Coli UTI- RESOLVED: Treatment of Cipro completed Depression/Anxiety- CANNOT ASSESS: Lexapro 10 mg daily GERD: Lansoprazole 30 mg daily GI Prophylaxis: Prevacid, Maalox PRN, IV Zofran PRN DVT Prophylaxis: Lovenox 40 mg SC daily Code Status: LEVEL V, DNR Disposition: Family meeting w/ palliative care on 02/15 to discuss goals of care - Prognosis- guarded
--- NOTE | 2017-02-15 16:24 | Palliative Care Consultation ---
Consultation Date of Consultation: Feb 15, 2017. Requesting Physician: Dr. Ruelas Attending Physician: Dr. Ruelas Reason for Consultation: Goals of care History of Present Illness This 61 year old female presented to the hospital 20 days ago with increased weakness, fatigue, and confusion. The patient is apparently a heavy alcohol user , but had no detectable ETOH level in blood on admission. She has been having these symptoms of weakness and memory problems for a while for which she was seeing neurology. MRI was done in August 2016 and again here on 02/08 showing considerable small vessel change. Patient also had NSTEMI with elevated troponin - was on heparin gtt which has since been discontinued. Patient went through alcohol withdrawal and was on treatment protocol. NGT placed for feeding. Patient having generalized abdominal pain. Abd US showed small amount of ascites , and hepatic fatty infiltration vs. hepatocellular disease. GI following-- patient has previously undiagnosed cirrhosis of the liver. Echocardiogram performed and showed EF 25% with severe mitral valve regurgitation. Patient also being treated for probable aspiration pneumonia, so tube feedings have been on hold I think for about five days. Despite treatment and best efforts, patient has not improved. She is now at a the point of needing a means of nutrition- there has been talk of a PEG tube, so GI is re-involved. Her code status was discussed yesterday by physician, she is now a DNR. Palliative care consulted. Long family meeting held between myself, Aidee Doherty (GI AUDIT INTERN), patient 's Celestino Mercado, Celestino's cousin Jessica, and another family member Jose Juan. We discussed patient's medical conditions and specifically about possibility of PEG tube. Family understands patient's medical conditions and that the prognosis is rather poor at this point with combination of heart failure, liver cirrhosis and ascites, metabolic encephalopathy, extensive cerebrovascular disease, and now aspiration pneumonia. They also verbalized understanding that a PEG tube is essentially contraindicated in the setting of ascites, which was explained and discussed in detail by Ms. Doherty. Celestino was tearful but did state that he is ready to focus on the patient's comfort and would like to feed her by mouth and remove the NG tube. Goal at this point is comfort and quality of life. Other family members in agreement. Plan will likely be for SNF placement. and family would like to continue patient's current treatment as far as medications; reevaluate tomorrow. Past Medical/Surgical History Medical History: Htn GERD Dyslipidemia Anxiety Depression Social History Smoking Status: Smoker Current Status UNK History of Alcohol Use: Yes (VODKA DAILY ) Drug Use: none Marital Status: Occupation Status: employed Review of Systems Constitutional: + weakness Respiratory: No cough, No shortness of breath Cardiac: + edema, No chest pain Abdomen: No pain, No nausea, No vomiting Psychiatric: No anxiety Allergies Coded Allergies: No Known Allergies (Verified , 01/05/17) Medications Current Inpatient Medications Medications (Trade) Dose Ordered Sig/Debbie Route Start Time Stop Time Status Last Admin Dose Admin Acetaminophen (Tylenol Tab) 650 mg Q4H PRN PO 01/26/17 14:30 02/25/17 14:29 02/10/17 20:29 650 MG Al Hydrox/Mg Hydrox/Simethicone (Maalox Max Susp) 15 ml Q4H PRN PO 01/26/17 14:30 02/25/17 14:29 Ondansetron HCl (Zofran Inj) 4 mg Q6H PRN IV 01/26/17 14:30 02/25/17 14:29 02/14/17 09:06 4 MG Atorvastatin Calcium (Lipitor Tab) 40 mg QAM PO 01/27/17 09:00 02/26/17 08:59 02/15/17 08:08 40 MG Escitalopram Oxalate (Lexapro Tab) 10 mg DAILY PO 01/27/17 09:00 02/26/17 08:59 02/15/17 08:08 10 MG Nitroglycerin (Nitrostat Tab) 0.4 mg PRN PRN SL 01/26/17 15:00 02/25/17 14:59 Metoprolol Tartrate (Lopressor Iv) 5 mg Q6H PRN IV 01/27/17 15:30 02/26/17 08:29 01/30/17 13:01 5 MG Dextrose (Dextrose 50% 50ML Syringe) 25-50ML OF 50% DW IV FOR... UD PRN IV 01/27/17 13:00 02/26/17 12:59 Carvedilol (Coreg Tab) 6.25 mg BID PO 01/29/17 09:00 02/27/17 08:59 02/15/17 08:08 6.25 MG Lisinopril (Zestril Tab) 5 mg QAM PO 01/29/17 09:00 02/27/17 08:59 Future Hold 02/15/17 08:08 5 MG Lorazepam (Ativan Inj) 1 mg Q4H PRN IV 01/29/17 16:15 02/28/17 16:14 Lorazepam (Ativan Inj) 0.5 mg Q4H PRN IV 01/29/17 16:15 02/28/17 16:14 Nicotine (Nicoderm Cq 21MG Patch) 1 patch QAM TD 01/31/17 09:00 03/02/17 08:59 02/15/17 08:07 1 PATCH Miscellaneous (Remove Nicoderm Patch) 1 ea HS N/A 01/30/17 21:00 03/01/17 20:59 02/14/17 21:00 1 EA Hydrocortisone (Proctozone Hc 2.5% Crm) 1 appln Q8 PRN EXT 01/30/17 18:00 03/01/17 17:59 Enteral Nutritional Formula (Boost Pudding) 1 cup TID PO 02/03/17 14:00 03/05/17 13:59 02/10/17 20:30 1 CUP Enoxaparin Sodium (Lovenox Inj) 40 mg QAM SQ 02/04/17 09:00 03/06/17 08:59 02/15/17 08:10 40 MG Aspirin (Aspirin Chew) 81 mg DAILY NG 02/05/17 09:30 03/07/17 09:29 02/15/17 08:08 81 MG Enteral Nutritional Formula (Fibersource HN) 1,000 ml UD PRN NG 02/05/17 10:30 03/07/17 10:29 Future Hold 02/08/17 19:13 1,000 ML Folic Acid (Folvite Tab) 1 mg DAILY@0900 NG 02/06/17 09:00 03/08/17 08:59 02/15/17 08:08 1 MG Lansoprazole (Prevacid Solutab) 30 mg DAILY NG 02/06/17 09:00 03/08/17 08:59 02/15/17 08:08 30 MG Lorazepam 1 mg/ Syringe 1 ml @ 1 mls/min Q4H PRN IV 02/06/17 20:45 03/08/17 20:44 Lorazepam 0.5 mg/ Syringe 1 ml @ 1 mls/min Q4H PRN IV 02/06/17 20:45 03/08/17 20:44 02/06/17 20:59 1 MLS/MIN Sterile Water (Tube Feeding Water Flush) 250 ea Q8 NG 02/07/17 14:00 03/07/17 11:59 Future Hold 02/10/17 06:09 250 EA Potassium Chloride/Dextrose/ Sod Cl 1,000 ml @ 75 mls/hr [id number] IV 02/12/17 14:00 03/14/17 13:59 02/15/17 08:36 75 MLS/HR Thiamine HCl 200 mg/Sodium Chloride 52 ml @ 208 mls/hr QAM IV 02/17/17 09:00 02/21/17 09:14 Thiamine HCl (Vitamin B-1 Tab) 100 mg QAM PO 02/22/17 09:00 03/24/17 08:59 Lactulose (Chronulac Syrup) 30 gm Q6 PRN PO 02/14/17 17:00 03/16/17 16:59 Rifaximin (Xifaxan Tab) 550 mg BID PO 02/14/17 21:00 03/16/17 20:59 02/15/17 08:08 550 MG Multivitamins Therapeutic (Cerovite Liquid) 15 ml QAM PO 02/15/17 09:00 03/17/17 08:59 02/15/17 08:09 15 ML Thiamine HCl 500 mg/Sodium Chloride 105 ml @ 210 mls/hr Q8 IV 02/14/17 22:00 02/16/17 14:29 02/15/17 15:12 210 MLS/HR Physical Exam Date Time Temp Pulse Resp B/P (MAP) Pulse Ox O2 Delivery O2 Flow Rate FiO2 02/15/17 15:29 36.7 69 17 109/75 (86) 97 Nasal Cannula 3.0 02/15/17 12:15 100 BiPAP 50 02/15/17 11:17 36.5 56 12 95/67 (76) 100 BiPAP 1.0 02/15/17 08:15 100 BiPAP 50 02/15/17 07:22 36.5 70 18 113/73 (86) 100 1.0 6/21/17 06:59 60 95 50 02/15/17 04:55 36.2 70 20 95/56 (69) 100 BiPAP 02/15/17 04:00 BiPAP 02/15/17 02:34 67 96 50 02/15/17 00:00 BiPAP 02/14/17 23:54 62 96 50 02/14/17 21:07 70 101/69 (80) 100 BiPAP 2.0 02/14/17 20:32 65 95 50 02/14/17 20:00 100 BiPAP 2.0 02/14/17 19:11 65 96 50 02/14/17 18:38 36.8 66 20 100/60 (73) 100 BiPAP 2.0 02/14/17 17:04 65 97 General Appearance: no apparent distress, + pertinent finding (chronically ill appearing) ENT: hearing grossly normal Neck: supple, no JVD Respiratory: no respiratory distress, no accessory muscle use, + crackles (few , faint in bilateral bases), + rhonchi (some coarseness throughout) Cardiovascular: regular rate, rhythm, + pertinent finding (+1 pitting edema to left leg, generalized pitting edema) Abdomen: normal bowel sounds, non tender Neurologic/Psychiatric: alert, normal mood/affect, + disoriented Skin: + pallor Laboratory Results Last 24 Hours Test 02/14/17 17:46 02/15/17 05:39 02/15/17 07:07 02/15/17 09:05 Bedside Glucose 125 mg/dl 99 mg/dl Magnesium Level 1.7 mg/dl Ammonia 56.0 umol/L Assessment & Plan Problem list: Altered mental status 2/2 metabolic encephalopathy- multifactorial Weakness Aspiration pneumonia ETOH abuse, no drink for a couple weeks Liver cirrhosis and abdominal ascites Shock liver Cerebrovascular disease- small vessel disease on MRI NSTEMI Elevated ammonia Goals of care (Z51.5) Palliative care plan: discussed with those listed above and with Dr. Ruelas. -Remains DNR/DNI -Allow comfort feeding. Remove NGT. -Pureed diet, thin liquids. -Strict aspiration precautions as ordered. -Continue current medical treatment. -Increased focus and goal of comfort and best quality of life, but is not "comfort measures only" at this time. This will be an ongoing discussion. -Transfer out of telemetry when cleared by hospitalist team. -No pain or discomfort right now. I have no symptom management to add at this time. -Likely will need SNF placement. Case management to follow. Thank you kindly for this consult. I will follow as needed.
[2017-02-15 23:48] LABS: BUN/CREATININE RATIO 11.2 (10-20); CALCIUM 7.6 mg/dl (8.5-10.1); CREATININE 0.38 mg/dl (0.60-1.20); MAGNESIUM 1.9 mg/dl (1.8-2.4); PHOSPHORUS 1.8 mg/dl (2.5-4.9); POTASSIUM 4.1 mmol/L (3.5-5.1)
[2017-02-16] MEDS: THIAMINE HCL INJ 500 MG in SODIUM CHLORIDE 0.9% 100ML IV SCH ×2 (05:45→13:29)
[2017-02-16 07:12] VITALS: BP 134/92; PULSE 67; TEMP 37.2; O2SAT 96
[2017-02-16 07:44] LABS: HEMATOCRIT 33.4 % (37-47); MEAN PLATELET VOLUME 10.5 fL (7.4-10.4); PLATELET COUNT 186 K/uL (130-400); RED BLOOD COUNT 3.59 M/uL (4.2-5.4); WHITE BLOOD COUNT 4.57 K/uL (4.8-10.8)
[2017-02-16 08:13] LABS: BUN/CREATININE RATIO 8.8 (10-20); CREATININE 0.49 mg/dl (0.60-1.20); POTASSIUM 4.1 mmol/L (3.5-5.1)
[2017-02-16] MEDS: NICOTINE 21 MG/24 HR TDSY TD SCH (08:31)
[2017-02-16] MEDS: MULTIVITAMINS W/MINERALS 15ML UDP PO SCH (08:33)
[2017-02-16] MEDS: CARVEDILOL 6.25 MG TAB PO SCH ×2 (10:21→20:31)
[2017-02-16] MEDS: LANSOPRAZOLE SOLUTAB 30 MG NG SCH (10:21)
[2017-02-16] MEDS: ATORVASTATIN 40 MG TAB PO SCH (10:21)
[2017-02-16] MEDS: BOOST VANILLA PUDDING CUP PO SCH ×3 (10:21→20:28)
[2017-02-16] MEDS: RIFAXIMIN TAB 550 MG TAB PO SCH ×2 (10:22→20:32)
[2017-02-16] MEDS: ESCITALOPRAM OXALATE 10 MG TAB PO SCH (10:22)
[2017-02-16] MEDS: ENOXAPARIN 40 MG/0.4 ML SYR SQ SCH (10:39)
[2017-02-16] MEDS: ASPIRIN 81 MG CHEW NG SCH (10:57)
[2017-02-16] MEDS: POT PHOSPHATE MONOBASIC W/ SOD TAB PO SCH ×3 (10:57→20:31)
[2017-02-16] MEDS: D5W AND 1/2NSS + 20MEQ KCL 1,000 ML IV SCH (10:58)
--- NOTE | 2017-02-16 11:18 | Hospitalist Progress Note ---
Hospitalist Progress Note Date of Service Feb 16, 2017. Subjective Pt evaluation today including: conversation w/ patient, physical exam, chart review, lab review, review of inpatient medication list Voiding: miguel catheter in place (draining concentrated yellow urine) Patient is much more alert/oriented this AM. Able to state/spell name, state , states she is at the hospital. Patient asking to go home and request vodka. Patient denies any complaints- Patient denies any fever, chills, sweats, lightheadedness, dizziness, vision changes, CP, palpitations, edema, SOB, wheezing, cough, abdominal pain, nausea, vomiting, diarrhea, urinary symptoms, melena, numbness/tingling, weakness, muscle/joint pain, anxiety/depression, active bleeding, or new skin discoloration/changes- but unsure of reliability due to mental status. Per nursing staff, patient refusing medications/breakfast. Keep pulling off O2 supplement. No acute events. Had a long discussion with patient about eating and taking medications- she agreed to take medications and took morning medications w/ no difficulty. Check O2 sats which were in the low-mid 80's- discussed importance of O2 supplement and patient put back on nasal cannula Medications Current Inpatient Medications Medications (Trade) Dose Ordered Sig/Debbie Route Start Time Stop Time Status Last Admin Dose Admin Acetaminophen (Tylenol Tab) 650 mg Q4H PRN PO 01/26/17 14:30 02/25/17 14:29 02/10/17 20:29 650 MG Al Hydrox/Mg Hydrox/Simethicone (Maalox Max Susp) 15 ml Q4H PRN PO 01/26/17 14:30 02/25/17 14:29 Ondansetron HCl (Zofran Inj) 4 mg Q6H PRN IV 01/26/17 14:30 02/25/17 14:29 02/14/17 09:06 4 MG Atorvastatin Calcium (Lipitor Tab) 40 mg QAM PO 01/27/17 09:00 02/26/17 08:59 02/16/17 10:21 40 MG Escitalopram Oxalate (Lexapro Tab) 10 mg DAILY PO 01/27/17 09:00 02/26/17 08:59 02/16/17 10:22 10 MG Nitroglycerin (Nitrostat Tab) 0.4 mg PRN PRN SL 01/26/17 15:00 02/25/17 14:59 Metoprolol Tartrate (Lopressor Iv) 5 mg Q6H PRN IV 01/27/17 15:30 02/26/17 08:29 01/30/17 13:01 5 MG Dextrose (Dextrose 50% 50ML Syringe) 25-50ML OF 50% DW IV FOR... UD PRN IV 01/27/17 13:00 02/26/17 12:59 Carvedilol (Coreg Tab) 6.25 mg BID PO 01/29/17 09:00 02/27/17 08:59 02/16/17 10:21 6.25 MG Lisinopril (Zestril Tab) 5 mg QAM PO 01/29/17 09:00 02/27/17 08:59 Future Hold 02/15/17 08:08 5 MG Lorazepam (Ativan Inj) 1 mg Q4H PRN IV 01/29/17 16:15 02/28/17 16:14 Lorazepam (Ativan Inj) 0.5 mg Q4H PRN IV 01/29/17 16:15 02/28/17 16:14 Nicotine (Nicoderm Cq 21MG Patch) 1 patch QAM TD 01/31/17 09:00 03/02/17 08:59 02/16/17 08:31 1 PATCH Miscellaneous (Remove Nicoderm Patch) 1 ea HS N/A 01/30/17 21:00 03/01/17 20:59 02/15/17 21:22 1 EA Hydrocortisone (Proctozone Hc 2.5% Crm) 1 appln Q8 PRN EXT 01/30/17 18:00 03/01/17 17:59 Enteral Nutritional Formula (Boost Pudding) 1 cup TID PO 02/03/17 14:00 03/05/17 13:59 02/16/17 10:21 1 CUP Enoxaparin Sodium (Lovenox Inj) 40 mg QAM SQ 02/04/17 09:00 03/06/17 08:59 02/16/17 10:39 40 MG Aspirin (Aspirin Chew) 81 mg DAILY NG 02/05/17 09:30 03/07/17 09:29 02/16/17 10:57 81 MG Enteral Nutritional Formula (Fibersource HN) 1,000 ml UD PRN NG 02/05/17 10:30 03/07/17 10:29 Future Hold 02/08/17 19:13 1,000 ML Folic Acid (Folvite Tab) 1 mg DAILY@0900 NG 02/06/17 09:00 03/08/17 08:59 02/16/17 10:57 1 MG Lansoprazole (Prevacid Solutab) 30 mg DAILY NG 02/06/17 09:00 03/08/17 08:59 02/16/17 10:21 30 MG Lorazepam 1 mg/ Syringe 1 ml @ 1 mls/min Q4H PRN IV 02/06/17 20:45 03/08/17 20:44 Lorazepam 0.5 mg/ Syringe 1 ml @ 1 mls/min Q4H PRN IV 02/06/17 20:45 03/08/17 20:44 02/06/17 20:59 1 MLS/MIN Sterile Water (Tube Feeding Water Flush) 250 ea Q8 NG 02/07/17 14:00 03/07/17 11:59 Future Hold 02/10/17 06:09 250 EA Potassium Chloride/Dextrose/ Sod Cl 1,000 ml @ 75 mls/hr [id number] IV 02/12/17 14:00 03/14/17 13:59 02/16/17 10:58 75 MLS/HR Thiamine HCl 200 mg/Sodium Chloride 52 ml @ 208 mls/hr QAM IV 02/17/17 09:00 02/21/17 09:14 Thiamine HCl (Vitamin B-1 Tab) 100 mg QAM PO 02/22/17 09:00 03/24/17 08:59 Lactulose (Chronulac Syrup) 30 gm Q6 PRN PO 02/14/17 17:00 03/16/17 16:59 Rifaximin (Xifaxan Tab) 550 mg BID PO 02/14/17 21:00 03/16/17 20:59 02/16/17 10:22 550 MG Multivitamins Therapeutic (Cerovite Liquid) 15 ml QAM PO 02/15/17 09:00 03/17/17 08:59 02/15/17 08:09 15 ML Thiamine HCl 500 mg/Sodium Chloride 105 ml @ 210 mls/hr Q8 IV 02/14/17 22:00 02/16/17 14:29 02/16/17 05:45 210 MLS/HR Potassium/ Phosphorus/Sodium (Phospha 250 Neutral 155-852-130 Mg) 1 tab QID PO 02/16/17 13:00 03/18/17 12:59 02/16/17 10:57 1 TAB Objective Vital Signs Date Time Temp Pulse Resp B/P (MAP) Pulse Ox O2 Delivery O2 Flow Rate FiO2 02/16/17 07:12 37.2 67 19 134/92 (106) 96 Room Air 02/16/17 04:00 Nasal Cannula 2.0 02/15/17 23:59 Nasal Cannula 2.0 02/15/17 23:32 36.6 70 18 115/85 (95) 98 Nasal Cannula 2.0 02/15/17 21:17 75 132/79 (96) 02/15/17 20:00 100 BiPAP 50 02/15/17 20:00 Nasal Cannula 2.0 02/15/17 16:15 100 BiPAP 50 02/15/17 15:29 36.7 69 17 109/75 (86) 97 Nasal Cannula 3.0 02/15/17 12:15 100 BiPAP 50 02/15/17 11:17 36.5 56 12 95/67 (76) 100 BiPAP 1.0 Physical Exam General Appearance: no apparent distress Eyes: PERRL ENT: hearing grossly normal, + pertinent finding (poor dentition ) Neck: supple Respiratory/Chest: lungs clear, no respiratory distress, no accessory muscle use Cardiovascular: regular rate, rhythm Abdomen: normal bowel sounds, non tender, soft Extremities: non-tender, + swelling (+1 pitting edema of bilateral upper and lower extremities) Neurologic/Psychiatric: alert, + disoriented (time) Skin: normal color, warm/dry, no rash Laboratory Results Last 24 Hours Test 02/15/17 11:23 02/15/17 23:14 02/16/17 07:25 02/16/17 07:44 Bedside Glucose 109 mg/dl 107 mg/dl Sodium Level 142 mmol/L 140 mmol/L Potassium Level 4.1 mmol/L 4.1 mmol/L Chloride Level 106 mmol/L 104 mmol/L Carbon Dioxide Level 32 mmol/L 30 mmol/L Anion Gap 4.0 mmol/L 6.0 mmol/L Blood Urea Nitrogen 4 mg/dl 4 mg/dl Creatinine 0.38 mg/dl 0.49 mg/dl Est Creatinine Clear Calc Drug Dose 149.0 ml/min 115.5 ml/min Estimated GFR () 130.7 120.2 Estimated GFR (Non- 112.7 103.7 BUN/Creatinine Ratio 11.2 8.8 Random Glucose 105 mg/dl 92 mg/dl Calcium Level 7.6 mg/dl 9.0 mg/dl Phosphorus Level 1.8 mg/dl Magnesium Level 1.9 mg/dl 2.0 mg/dl White Blood Count 4.57 K/uL Red Blood Count 3.59 M/uL Hemoglobin 9.7 g/dL Hematocrit 33.4 % Mean Corpuscular Volume 93.0 fL Mean Corpuscular Hemoglobin 27.0 pg Mean Corpuscular Hemoglobin Concent 29.0 g/dl RDW Standard Deviation 70.3 fL RDW Coefficient of Variation 20.7 % Platelet Count 186 K/uL Mean Platelet Volume 10.5 fL Ammonia 30.0 umol/L Assessment and Plan Pt is a 61 yo female with worsening weakness/dizziness x few weeks. Presented with NSTEMI, new systolic heart failure. Unfortunately she had ventricular tachycardia, shock liver and a progressive encephalopathy during her stay exhibited by profound lethargy and unresponsiveness. 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 Allen's notes on 02/12- spoke w/ family and agreeable to PEG tube- case discussed w/ Dr. Lowry -- PEG tube is contraindicated due to ascites - Consult palliative care to discuss future goals w/ patient/family -- Meeting on 01/27 to discuss goals and contraindication of PEG tube- decided on removing NG tube and begin oral feedings; DNR, but NOT comfort measure only- would still like to continue current medical treatment - Ativan 0.5-1 mg q4 hrs PRN - Hyperammonemia- RESOLVED: Continue Lactulose 30 gm q6 hrs PRN and Xifaxan 550 mg BID- repeat ammonia level tomorrow AM - ABGs reviewed on 02/14: Hypoxic hypercarbic respiratory failure- continue BiPAP /O2 supplement - 1:1 at this time - Diet: pureed, thin liquids, aspiration precautions- consult craft recruiter - D5W 1/2 NS + 20 mEq KCL @ 75 ml/hr until tolerating adequate feedings Possible aspiration pneumonia: Completed Zosyn 4.5 g IV Q6H for aspiration x1 week Hypomagnesium of 1.7- RESOLVED: - Treated w/ 1 gm IV x1 on 02/14 and x3 bags on 02/15 Hypophosphate: - Replete w/ PO supplement - Repeat phosphorus level tomorrow Anemia- STABLE: Trending downward, continue to follow CBC ETOH Abuse- STABLE: - Librium and detox protocols weaned and completed - Repeat aggressive thiamine regimen: 500 mg 3 times a day for 2 days then 250 mg IV daily for 5 days and then continue 100 mg daily (started on 02/14 by lamination spinner) Tobacco Abuse: NicoDerm patch Elevated LFTs with fatty liver, secondary to ischemic hepatitis from [place]- STABLE : - Liver US 01/30- unremarkable sonographic assessment of the hepatic and portal vasculature - Abdominal US 02/04- Moderate gallbladder wall thickening, a nonspecific finding. No gallstones. No biliary ductal dilatation. Small amount of ascites and a right pleural effusion. Increased hepatic echogenicity which may reflect fatty infiltration or hepatocellular disease. - LFTs trending down NSTEMI w/ systolic heart failure- STABLE: - Treated w/ IV Heparin drip 01/26-01/29 and IV Lasix - Echo - EF 25% - unable to participate in stress test - ASA 81 mg daily - Continue Coreg 6.25 mg BID - Will hold Lisinopril 5 mg daily on 02/15 due to hypotension Dyslipidemia: - Lipitor 40 mg daily - Lipid panel on 01/26/17- reviewed Hypernatremia with metabolic acidosis- RESOLVED: Nephrology signed off Escherichia Coli UTI- RESOLVED: Treatment of Cipro completed Depression/Anxiety- CANNOT ASSESS: Lexapro 10 mg daily GERD: Lansoprazole 30 mg daily GI Prophylaxis: Prevacid, Maalox PRN, IV Zofran PRN DVT Prophylaxis: Lovenox 40 mg SC daily Code Status: LEVEL V, DNR Disposition: Plan to discharge to SNF once medically stable- likely [facility] - Prognosis- guarded
[2017-02-16 14:56] VITALS: BP 145/90; PULSE 78; TEMP 36.8; O2SAT 97
[2017-02-16 16:00] VITALS: O2SAT 97
[2017-02-16 20:26] VITALS: BP 145/102; PULSE 79; TEMP 36.8; O2SAT 94
[2017-02-16 20:30] VITALS: O2SAT 1
[2017-02-17 00:04] VITALS: BP 145/88; PULSE 74; TEMP 36.5; O2SAT 97
[2017-02-17 06:48] VITALS: BP 148/97; PULSE 85; TEMP 36.7; O2SAT 90
[2017-02-17 07:28] LABS: HEMATOCRIT 34.5 % (37-47); MEAN CELL VOLUME 91.5 fL (80-100); MEAN CORPUSCULAR HEMOGLOBIN 26.8 pg (25-34); MEAN CORPUSCULAR HGB CONC 29.3 g/dl (32-36); MEAN PLATELET VOLUME 10.3 fL (7.4-10.4); PLATELET COUNT 229 K/uL (130-400); RED BLOOD COUNT 3.77 M/uL (4.2-5.4); WHITE BLOOD COUNT 4.76 K/uL (4.8-10.8)
[2017-02-17 07:55] LABS: BUN/CREATININE RATIO 8.9 (10-20); CALCIUM 8.8 mg/dl (8.5-10.1); CREATININE 0.47 mg/dl (0.60-1.20); MAGNESIUM 1.7 mg/dl (1.8-2.4); PHOSPHORUS 2.3 mg/dl (2.5-4.9); POTASSIUM 3.8 mmol/L (3.5-5.1)
[2017-02-17] MEDS: ENOXAPARIN 40 MG/0.4 ML SYR SQ SCH (08:27)
[2017-02-17] MEDS: ATORVASTATIN 40 MG TAB PO SCH (08:27)
[2017-02-17] MEDS: RIFAXIMIN TAB 550 MG TAB PO SCH ×2 (08:28→20:45)
[2017-02-17] MEDS: LANSOPRAZOLE SOLUTAB 30 MG NG SCH (08:28)
[2017-02-17] MEDS: ESCITALOPRAM OXALATE 10 MG TAB PO SCH (08:28)
[2017-02-17] MEDS: POT PHOSPHATE MONOBASIC W/ SOD TAB PO SCH ×4 (08:28→20:45)
[2017-02-17] MEDS: THIAMINE HCL 100 MG TAB PO SCH (08:28)
[2017-02-17] MEDS: CARVEDILOL 6.25 MG TAB PO SCH ×2 (08:28→20:45)
[2017-02-17] MEDS: NICOTINE 21 MG/24 HR TDSY TD SCH (08:29)
[2017-02-17] MEDS: MULTIVITAMINS W/MINERALS 15ML UDP PO SCH (08:29)
[2017-02-17] MEDS: ASPIRIN 81 MG CHEW NG SCH (08:30)
[2017-02-17] MEDS: BOOST VANILLA PUDDING CUP PO SCH ×3 (08:30→19:41)
[2017-02-17] MEDS ORDERED: THIAMINE HCL INJ 200 MG in SODIUM CHLORIDE 0.9% 50ML 50 ML IV SCH (09:00)
--- NOTE | 2017-02-17 09:36 | Hospitalist Progress Note ---
Hospitalist Progress Note Date of Service Feb 17, 2017. Subjective Pt evaluation today including: conversation w/ patient, physical exam, chart review, lab review, review of inpatient medication list Voiding: miguel catheter in place [place] is alert/oriented x2 this AM- disoriented to time. Admits to decreased appetite- discussed importance of eating again. Per nursing staff, patient took meds this AM, but would spit some back out- discussed importance of medications again. 02 2L on- saturating at 94%. Patient denies any fever, chills, sweats, lightheadedness, dizziness, vision changes, CP, palpitations, edema, SOB, wheezing, cough, abdominal pain, nausea, vomiting, diarrhea, urinary symptoms, melena, numbness/tingling, weakness, muscle/joint pain, anxiety/depression, active bleeding, or new skin discoloration/changes. Medications Current Inpatient Medications Medications (Trade) Dose Ordered Sig/Debbie Route Start Time Stop Time Status Last Admin Dose Admin Acetaminophen (Tylenol Tab) 650 mg Q4H PRN PO 01/26/17 14:30 02/25/17 14:29 02/10/17 20:29 650 MG Al Hydrox/Mg Hydrox/Simethicone (Maalox Max Susp) 15 ml Q4H PRN PO 01/26/17 14:30 02/25/17 14:29 Ondansetron HCl (Zofran Inj) 4 mg Q6H PRN IV 01/26/17 14:30 02/25/17 14:29 02/14/17 09:06 4 MG Atorvastatin Calcium (Lipitor Tab) 40 mg QAM PO 01/27/17 09:00 02/26/17 08:59 02/17/17 08:27 40 MG Escitalopram Oxalate (Lexapro Tab) 10 mg DAILY PO 01/27/17 09:00 02/26/17 08:59 02/17/17 08:28 10 MG Nitroglycerin (Nitrostat Tab) 0.4 mg PRN PRN SL 01/26/17 15:00 02/25/17 14:59 Metoprolol Tartrate (Lopressor Iv) 5 mg Q6H PRN IV 01/27/17 15:30 02/26/17 08:29 01/30/17 13:01 5 MG Dextrose (Dextrose 50% 50ML Syringe) 25-50ML OF 50% DW IV FOR... UD PRN IV 01/27/17 13:00 02/26/17 12:59 Carvedilol (Coreg Tab) 6.25 mg BID PO 01/29/17 09:00 02/27/17 08:59 02/17/17 08:28 6.25 MG Lisinopril (Zestril Tab) 5 mg QAM PO 01/29/17 09:00 02/27/17 08:59 Future Hold 02/15/17 08:08 5 MG Lorazepam (Ativan Inj) 0.5 mg Q4H PRN IV 01/29/17 16:15 02/28/17 16:14 Nicotine (Nicoderm Cq 21MG Patch) 1 patch QAM TD 01/31/17 09:00 03/02/17 08:59 02/17/17 08:29 1 PATCH Miscellaneous (Remove Nicoderm Patch) 1 ea HS N/A 01/30/17 21:00 03/01/17 20:59 02/16/17 20:28 1 EA Hydrocortisone (Proctozone Hc 2.5% Crm) 1 appln Q8 PRN EXT 01/30/17 18:00 03/01/17 17:59 Enteral Nutritional Formula (Boost Pudding) 1 cup TID PO 02/03/17 14:00 03/05/17 13:59 02/17/17 08:30 1 CUP Enoxaparin Sodium (Lovenox Inj) 40 mg QAM SQ 02/04/17 09:00 03/06/17 08:59 02/17/17 08:27 40 MG Aspirin (Aspirin Chew) 81 mg DAILY NG 02/05/17 09:30 03/07/17 09:29 02/17/17 08:30 81 MG Enteral Nutritional Formula (Fibersource HN) 1,000 ml UD PRN NG 02/05/17 10:30 03/07/17 10:29 Future Hold 02/08/17 19:13 1,000 ML Folic Acid (Folvite Tab) 1 mg DAILY@0900 NG 02/06/17 09:00 03/08/17 08:59 02/17/17 08:29 1 MG Lansoprazole (Prevacid Solutab) 30 mg DAILY NG 02/06/17 09:00 03/08/17 08:59 02/17/17 08:28 30 MG Lorazepam 0.5 mg/ Syringe 1 ml @ 1 mls/min Q4H PRN IV 02/06/17 20:45 03/08/17 20:44 02/06/17 20:59 1 MLS/MIN Sterile Water (Tube Feeding Water Flush) 250 ea Q8 NG 02/07/17 14:00 03/07/17 11:59 Future Hold 02/10/17 06:09 250 EA Lactulose (Chronulac Syrup) 30 gm Q6 PRN PO 02/14/17 17:00 03/16/17 16:59 Rifaximin (Xifaxan Tab) 550 mg BID PO 02/14/17 21:00 03/16/17 20:59 02/17/17 08:28 550 MG Multivitamins Therapeutic (Cerovite Liquid) 15 ml QAM PO 02/15/17 09:00 03/17/17 08:59 02/17/17 08:29 15 ML Potassium/ Phosphorus/Sodium (Phospha 250 Neutral 155-852-130 Mg) 1 tab QID PO 02/16/17 13:00 03/18/17 12:59 02/17/17 08:28 1 TAB Thiamine HCl (Vitamin B-1 Tab) 100 mg QAM PO 02/17/17 09:00 03/19/17 08:59 02/17/17 08:28 100 MG Objective Vital Signs Date Time Temp Pulse Resp B/P (MAP) Pulse Ox O2 Delivery O2 Flow Rate FiO2 02/17/17 06:48 36.7 85 18 148/97 (114) 90 2.0 02/17/17 00:15 Nasal Cannula 2.0 02/17/17 00:04 36.5 74 20 145/88 (107) 97 2.0 02/16/17 20:30 1 Nasal Cannula 2.0 02/16/17 20:26 36.8 79 18 145/102 (116) 94 Nasal Cannula 2.0 02/16/17 16:00 97 Nasal Cannula 2.0 02/16/17 14:56 36.8 78 18 145/90 (108) 97 Nasal Cannula 2.0 Physical Exam General Appearance: no apparent distress Eyes: normal inspection, PERRL ENT: hearing grossly normal Neck: supple Respiratory/Chest: lungs clear, no respiratory distress, no accessory muscle use Cardiovascular: regular rate, rhythm Abdomen: normal bowel sounds, non tender, soft Extremities: no pedal edema, no calf tenderness, + swelling (trace pitting edema of bilateral lower extremities ) Neurologic/Psychiatric: alert, + disoriented (time) Skin: normal color, warm/dry, no rash Laboratory Results Last 24 Hours Test 02/16/17 16:39 02/17/17 06:52 02/17/17 07:28 Bedside Glucose 121 mg/dl 95 mg/dl White Blood Count 4.76 K/uL Red Blood Count 3.77 M/uL Hemoglobin 10.1 g/dL Hematocrit 34.5 % Mean Corpuscular Volume 91.5 fL Mean Corpuscular Hemoglobin 26.8 pg Mean Corpuscular Hemoglobin Concent 29.3 g/dl RDW Standard Deviation 69.4 fL RDW Coefficient of Variation 20.7 % Platelet Count 229 K/uL Mean Platelet Volume 10.3 fL Sodium Level 140 mmol/L Potassium Level 3.8 mmol/L Chloride Level 103 mmol/L Carbon Dioxide Level 28 mmol/L Anion Gap 9.0 mmol/L Blood Urea Nitrogen 4 mg/dl Creatinine 0.47 mg/dl Est Creatinine Clear Calc Drug Dose 120.5 ml/min Estimated GFR () 121.8 Estimated GFR (Non- 105.1 BUN/Creatinine Ratio 8.9 Random Glucose 94 mg/dl Calcium Level 8.8 mg/dl Phosphorus Level 2.3 mg/dl Magnesium Level 1.7 mg/dl Assessment and Plan Pt is a 61 yo female with worsening weakness/dizziness x few weeks. Presented with NSTEMI, new systolic heart failure. Unfortunately she had ventricular tachycardia, shock liver and a progressive encephalopathy during her stay exhibited by profound lethargy and unresponsiveness. 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 - no further intervention -- Head CT w/ no acute intracranial findings, MRI shows no stroke, EEG shows no epileptiform activity - Consult palliative care to discuss future goals w/ patient/family -- Meeting on 01/27 to discuss goals and contraindication of PEG tube- decided on removing NG tube and begin oral feedings; DNR, but NOT comfort measure only- would still like to continue current medical treatment - Ativan 0.5-1 mg q4 hrs PRN - Hyperammonemia- RESOLVED: Continue Lactulose 30 gm q6 hrs PRN and Xifaxan 550 mg BID- repeat ammonia level tomorrow AM - ABGs reviewed on 02/14: Hypoxic hypercarbic respiratory failure- continue BiPAP /O2 supplement - 1:1 at this time - Diet: pureed, thin liquids, aspiration precautions- consulted local company intermodal truck 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 - Treated w/ D5W 08/29 NS + 20 mEq KCL @ 75 ml/hr while NPO Possible aspiration pneumonia: Completed Zosyn 4.5 g IV Q6H for aspiration x1 week Hypomagnesium of 1.7 on 02/16: - Treated w/ 1 gm IV x1 on 02/14 and x3 bags on 02/15 - Treat w/ 1 gm IV x2 and begin Mag-Ox supplementation 400 mg BID on 02/16 - Follow mag level Hypophosphatemia- IMPROVING: - Replete w/ Phosphate supplement PO QID - Repeat phosphorus level tomorrow Anemia- STABLE: Follow CBC ETOH Abuse- STABLE: - Librium and detox protocols weaned and completed - Thiamine 100 mg daily, Folic acid 1 gm daily Tobacco Abuse: NicoDerm patch Elevated LFTs with fatty liver, secondary to ischemic hepatitis from [place]- STABLE : - Liver US 01/30- unremarkable sonographic assessment of the hepatic and portal vasculature - Abdominal US 02/04- Moderate gallbladder wall thickening, a nonspecific finding. No gallstones. No biliary ductal dilatation. Small amount of ascites and a right pleural effusion. Increased hepatic echogenicity which may reflect fatty infiltration or hepatocellular disease. - LFTs trending down NSTEMI w/ systolic heart failure- STABLE: - Treated w/ IV Heparin drip 01/26-01/29 and IV Lasix - Echo - EF 25% - unable to participate in stress test - ASA 81 mg daily - Continue Coreg 6.25 mg BID HTN: Held Lisinopril 5 mg daily on 02/15 due to hypotension- RESOLVED; resume Lisinopril on 02/17 Dyslipidemia: - Lipitor 40 mg daily - Lipid panel on 01/26/17- reviewed Hypernatremia with metabolic acidosis- RESOLVED: Nephrology signed off Escherichia Coli UTI- RESOLVED: Treatment of Cipro completed Depression/Anxiety- CANNOT ASSESS: Lexapro 10 mg daily GERD: Lansoprazole 30 mg daily GI Prophylaxis: Prevacid, Maalox PRN, IV Zofran PRN DVT Prophylaxis: Lovenox 40 mg SC daily Code Status: LEVEL V, DNR Disposition: Plan to discharge to SNF once medically stable- likely [facility] , hopefully within the next 1-2 days - Prognosis- guarded
[2017-02-17] MEDS: MAGNESIUM SULFATE 1GM / D5W 1 GM in PREMIXED IN D5W 100 ML IV SCH ×2 (11:02→12:13)
[2017-02-17 14:11] VITALS: BP 148/97; PULSE 85; O2SAT 90
[2017-02-17] MEDS: ACETAMINOPHEN 325 MG TAB PO PRN (16:52)
[2017-02-17] MEDS: MAGNESIUM OXIDE 400 MG TAB PO SCH (20:46)
[2017-02-18 07:26] VITALS: BP 136/110; PULSE 92; TEMP 36.5; O2SAT 97
[2017-02-18 07:50] LABS: MEAN CELL VOLUME 90.4 fL (80-100); MEAN CORPUSCULAR HEMOGLOBIN 27.6 pg (25-34); MEAN CORPUSCULAR HGB CONC 30.6 g/dl (32-36); MEAN PLATELET VOLUME 10.7 fL (7.4-10.4); PLATELET COUNT 185 K/uL (130-400); RED BLOOD COUNT 3.87 M/uL (4.2-5.4); WHITE BLOOD COUNT 6.46 K/uL (4.8-10.8)
[2017-02-18 08:17] LABS: BUN/CREATININE RATIO 11.3 (10-20); CREATININE 0.54 mg/dl (0.60-1.20); MAGNESIUM 1.9 mg/dl (1.8-2.4); POTASSIUM 3.6 mmol/L (3.5-5.1)
[2017-02-18 08:24] LABS: PHOSPHORUS 3.2 mg/dl (2.5-4.9)
[2017-02-18] MEDS: LISINOPRIL 5 MG TAB PO SCH (08:36)
[2017-02-18] MEDS: ESCITALOPRAM OXALATE 10 MG TAB PO SCH (08:37)
[2017-02-18] MEDS: ENOXAPARIN 40 MG/0.4 ML SYR SQ SCH (08:37)
[2017-02-18] MEDS: CARVEDILOL 6.25 MG TAB PO SCH ×2 (08:37→21:29)
[2017-02-18] MEDS: RIFAXIMIN TAB 550 MG TAB PO SCH ×2 (08:37→21:28)
[2017-02-18] MEDS: BOOST VANILLA PUDDING CUP PO SCH ×3 (08:41→21:00)
[2017-02-18] MEDS: ATORVASTATIN 40 MG TAB PO SCH (08:41)
[2017-02-18] MEDS: MAGNESIUM OXIDE 400 MG TAB PO SCH ×2 (08:41→21:30)
[2017-02-18] MEDS: POT PHOSPHATE MONOBASIC W/ SOD TAB PO SCH ×4 (08:42→21:29)
[2017-02-18] MEDS: LANSOPRAZOLE SOLUTAB 30 MG NG SCH (08:42)
[2017-02-18] MEDS: MULTIVITAMINS W/MINERALS 15ML UDP PO SCH (08:43)
[2017-02-18] MEDS: NICOTINE 21 MG/24 HR TDSY TD SCH (08:43)
[2017-02-18] MEDS: THIAMINE HCL 100 MG TAB PO SCH (08:44)
[2017-02-18] MEDS: ASPIRIN 81 MG CHEW NG SCH (08:44)
[2017-02-18] MEDS ORDERED: CARVEDILOL 3.125 MG TAB PO ONE (11:15)
[2017-02-18] MEDS ORDERED: NURSING VERBAL MED ORDER ONE (11:30)
[2017-02-18 11:33] VITALS: BP 139/99
--- NOTE | 2017-02-18 12:11 | Progress Note ---
Subjective Date of Service: Feb 18, 2017. Subjective Pt evaluation today including: conversation w/ patient, conversation w/ family , physical exam, chart review, lab review, review of studies, review of inpatient medication list Nurse report pt spit pills yesterday she did not get to [facility] Patient care feeding, possible eating 50%, Awake alert and conversational, no agitation, no other name BD and place, but general conversation seems some confuse Problem List Medical Problems: (1) Acute electrocardiogram changes Status: Acute (2) Dizziness Status: Acute (3) Elevated troponin Status: Acute (4) Hypokalemia Status: Acute (5) Hypomagnesemia Status: Acute (6) Weakness Status: Acute Review of Systems Constitutional: + weakness, + fatigue, No see HPI, No fever, No chills, No sweats, No weight loss, No problem reported ENT: No see HPI, No hearing loss, No unusual epistaxis, No nasal symptoms, No sore throat, No tinnitus, No dental problems, No trouble swallowing, No problem reported Respiratory: No see HPI, No cough, No sputum, No wheezing, No shortness of breath, No dyspnea on exertion, No dyspnea at rest, No hemoptysis, No problem reported Cardiac: No see HPI, No chest pain, No orthopnea, No PND, No edema, No claudication, No palpitations, No problem reported Abdomen: No see HPI, No pain, No nausea, No vomiting, No diarrhea, No constipation, No GI bleeding, No problem reported Musculoskeletal: No see HPI, No joint pain, No muscle pain, No swelling, No calf pain, No problem reported Female : No see HPI, No dysuria, No urinary frequency, No hematuria, No incontinence, No abnormal vaginal bleeding, No vaginal discharge, No problem reported Objective Vital Signs Date Time Temp Pulse Resp B/P (MAP) Pulse Ox O2 Delivery O2 Flow Rate FiO2 02/18/17 11:33 139/99 (112) 02/18/17 07:26 36.5 92 20 136/110 (119) 97 Nasal Cannula 4.0 02/18/17 00:00 Nasal Cannula 2.0 02/17/17 21:00 Nasal Cannula 2.0 02/17/17 16:00 Nasal Cannula 2.0 02/17/17 14:11 85 90 Physical Exam General Appearance: WD/WN, no apparent distress, + pertinent finding (lethargic ) Eyes: normal inspection, PERRL, EOMI, sclerae normal ENT: hearing grossly normal, pharynx normal, + pertinent finding (oral mucosa dry) Neck: supple, no adenopathy, thyroid normal, no JVD, no carotid bruits, trachea midline Respiratory/Chest: chest non-tender, normal breath sounds, no respiratory distress, no accessory muscle use, + decreased breath sounds Cardiovascular: regular rate, rhythm, no gallop, no JVD, no murmur Abdomen: normal bowel sounds, non tender, soft, no organomegaly, no pulsatile mass Extremities: normal range of motion, non-tender, normal inspection, no pedal edema, no calf tenderness, normal capillary refill, pelvis stable, + swelling (2 +) Neurologic/Psychiatric: half backer II-XII nml as tested, no motor/sensory deficits, alert, normal mood/affect, oriented x 3 Skin: normal color, warm/dry, no rash Lymphatic: no adenopathy Laboratory Results Last 24 Hours Test 02/17/17 16:22 02/17/17 19:56 02/18/17 07:39 Bedside Glucose 127 mg/dl 117 mg/dl 111 mg/dl White Blood Count 6.46 K/uL Red Blood Count 3.87 M/uL Hemoglobin 10.7 g/dL Hematocrit 35.0 % Mean Corpuscular Volume 90.4 fL Mean Corpuscular Hemoglobin 27.6 pg Mean Corpuscular Hemoglobin Concent 30.6 g/dl RDW Standard Deviation 69.6 fL RDW Coefficient of Variation 21.1 % Platelet Count 185 K/uL Mean Platelet Volume 10.7 fL Sodium Level 140 mmol/L Potassium Level 3.6 mmol/L Chloride Level 102 mmol/L Carbon Dioxide Level 28 mmol/L Anion Gap 10.0 mmol/L Blood Urea Nitrogen 6 mg/dl Creatinine 0.54 mg/dl Est Creatinine Clear Calc Drug Dose 104.8 ml/min Estimated GFR () 116.4 Estimated GFR (Non- 100.4 BUN/Creatinine Ratio 11.3 Random Glucose 93 mg/dl Calcium Level 9.0 mg/dl Phosphorus Level 3.2 mg/dl Magnesium Level 1.9 mg/dl Ammonia 20.0 umol/L Assessment and Plan 61 yo female with worsening weakness/dizziness x few weeks. Presented with NSTEMI, new systolic heart failure. Unfortunately she had ventricular tachycardia, shock liver and a progressive encephalopathy during her stay exhibited by profound lethargy and unresponsiveness. 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 - no further intervention -- Head CT w/ no acute intracranial findings, MRI shows no stroke, EEG shows no epileptiform activity - Consult palliative care to discuss future goals w/ patient/family -- Meeting on 01/27 to discuss goals and contraindication of PEG tube- decided on removing NG tube and begin oral feedings; DNR, but NOT comfort measure only- would still like to continue current medical treatment - Ativan 0.5-1 mg q4 hrs PRN - Hyperammonemia- RESOLVED: Today's ammonia is 20, Continue Lactulose 30 gm q6 hrs PRN and Xifaxan 550 mg BID repeat ammonia level if needed - ABGs reviewed on 02/14: Hypoxic hypercarbic respiratory failure- continue BiPAP /O2 supplement - Was need 1:1, has been every 15 minutes checking for 2 days - Diet: pureed, thin liquids, aspiration precautions- consulted card player - Treated w/ D5W 08/29 NS + 20 mEq KCL @ 75 ml/hr while NPO Possible aspiration pneumonia: Completed Zosyn 4.5 g IV Q6H for aspiration x1 week Anemia- STABLE: Follow CBC ETOH Abuse- STABLE: - Librium and detox protocols weaned and completed - Thiamine 100 mg daily, Folic acid 1 gm daily Tobacco Abuse: NicoDerm patch Elevated LFTs with fatty liver, secondary to ischemic hepatitis from [place]- STABLE : - Liver US 01/30- unremarkable sonographic assessment of the hepatic and portal vasculature - Abdominal US 02/04- Moderate gallbladder wall thickening, a nonspecific finding. No gallstones. No biliary ductal dilatation. Small amount of ascites and a right pleural effusion. Increased hepatic echogenicity which may reflect fatty infiltration or hepatocellular disease. - LFTs trending down NSTEMI w/ systolic heart failure- STABLE: - Treated w/ IV Heparin drip 01/26-01/29 and IV Lasix - Echo - EF 25% - unable to participate in stress test - ASA 81 mg daily - Continue Coreg 6.25 mg BID Accelerated HTN: Held Lisinopril 5 mg daily on 02/15 due to hypotension- RESOLVED ; resume Lisinopril on 02/17 , patient currently blood pressure high likely because of she does not take the pill or is spit d out, therefore will not change medicine dose for now Dyslipidemia: - Lipitor 40 mg daily - Lipid panel on 01/26/17- reviewed Hypernatremia with metabolic acidosis- RESOLVED: Nephrology signed off Escherichia Coli UTI- RESOLVED: Treatment of Cipro completed Depression/Anxiety- CANNOT ASSESS: Lexapro 10 mg daily GERD: Lansoprazole 30 mg daily GI Prophylaxis: Prevacid, Maalox PRN, IV Zofran PRN DVT Prophylaxis: Lovenox 40 mg SC daily Code Status: LEVEL V, DNR Disposition: Plan to discharge to SNF, likely [facility], possible tomorrow, Updated him patient's conditions, and discharge plan - Prognosis is poor and her fully understand about this, encourage him to talk to social work administrator to initiate palliative care or hospice care if he would like to while in ECF Continued [facility] stay due to: multiple IV medications needed Discharge planning: long-term facility
[2017-02-18 15:15] VITALS: BP 164/121; PULSE 90; TEMP 36.6; O2SAT 96
[2017-02-18 17:36] VITALS: BP 150/100
[2017-02-18 20:00] VITALS: O2SAT 96
[2017-02-18] MEDS ORDERED: CARVEDILOL 3.125 MG TAB PO SCH (21:00)
[2017-02-18 23:39] VITALS: BP 143/93; PULSE 101; TEMP 36.4; O2SAT 92
[2017-02-19] MEDS ORDERED: MGNO400 PO (07:24)
[2017-02-19] MEDS ORDERED: POTTAB2 PO (07:24)
[2017-02-19] MEDS ORDERED: XFX550 PO (07:24)
[2017-02-19] MEDS ORDERED: FLV1 NG (07:24)
[2017-02-19] MEDS ORDERED: NICO21DI4 TD (07:24)
[2017-02-19] MEDS ORDERED: NUTRMIS PO (07:24)
[2017-02-19] MEDS ORDERED: Fibersource 1.2 Cal NG (07:24)
[2017-02-19] MEDS ORDERED: CRG625 PO (07:24)
[2017-02-19] MEDS ORDERED: ASPCH81 NG (07:24)
[2017-02-19] MEDS ORDERED: MULTLIQ PO (07:24)
[2017-02-19] MEDS ORDERED: LSN5 PO (07:24)
[2017-02-19] MEDS ORDERED: THM100 PO (07:24)
[2017-02-19] MEDS ORDERED: LCTL45 PO (07:24)
--- NOTE | 2017-02-19 07:35 | Discharge Instructions ---
Discharge Instructions Date of Service Feb 19, 2017. Admission Reason for Admission: Nstemi Discharge Discharge Diagnosis / Problem: Multifactorial encephalopathy Discharge Goals Goal(s): Decrease discomfort, Improve function, Increase independence, Improve disease control, Improve nutritional status, Learn about illness, Diagnostic testing, Therapeutic intervention, Prevent Disease Progression, Specific goals Activity Recommendations Activity Level: OOB In Chair (if tolerate), Assistance Required Therapies: Physical Therapy, Occupational Therapy . Additional Information Patient informed of condition: Yes Advance Directives: Yes DNR: Yes Level of Care: Skilled Communicable Disease: No Prognosis: Deteriorating Oxygen at (LPM): 1-2 LPM if needed Acosta Catheter: Yes Instructions / Follow-Up Instructions / Follow-Up you have Multifactorial encephalopathy, confused comes and goes you had ETOH abuse, please continue quit you had aspiration pneumonia: you had smoking, and please continue quit smoking , continue NicoDerm patch you have Small amount of ascites and a right pleural effusion and possible alcoholic liver disease you hae acute heart attack and systolic heart failure you ahve accelerated HTN: you need to take pills otherwise your blood pressure will be too much, which can be dangerous I recommend continue comfort feeding with the risks of aspiration, and discussed with child welfare social worker for possible enter hospice care. - you need to follow up with your primary care physician in 1 week, - take medication as instructed, never overdose or any misuse, or take with alcohol, because misuse of medicine may cause organ damage or , call your primary care physician if have questions of medicaitons. - call your primary care physician if has any fever/chill, chest pain, shortness of breathing, nausea/vomiting/abdominal pain, facial droop/slurry speech/local weakness, or if has any questions. - fall precaution - diet as instructed Current Hospital Diet Patient's current hospital diet: Regular Diet Discharge Diet Recommended Diet: Regular Diet, N/A (comfort feeding) Procedures Procedures Performed: no Pending Studies Studies pending at discharge: no Physician Orders On Transfer POLST Discussion: without POLST completion Laboratory Results Hemoglobin A1c Test 01/26/17 12:35 Range/Units Estimated Average Glucose 140 mg/dl Hemoglobin A1c 6.5 H 4.5-5.6 % Lipid Panel Test 01/26/17 12:35 Range/Units Triglycerides Level 105 0-150 mg/dl Cholesterol Level 152 0-200 mg/dl HDL Cholesterol 69 mg/dl Cholesterol/HDL Ratio 2.2 LDL Cholesterol, Calculated 62 mg/dl Medical Emergencies . Who to Call and When: Medical Emergencies: If at any time you feel your situation is an emergency, please call 911 immediately. . Non-Emergent Contact Non-Emergency issues call your: Primary Care Provider . . "Provider Documentation" section prepared by Dax Ruelas. . Core Measure Problem Core Measures: AMI AMI Core Measures Reason no ASA as I/P: Treatment provided - N/A Reason no statin as I/P: Treatment provided - N/A Reason no statin at D/C: Treatment provided - N/A
[2017-02-19 07:38] LABS: HEMATOCRIT 32.6 % (37-47); MEAN CELL VOLUME 88.8 fL (80-100); MEAN CORPUSCULAR HEMOGLOBIN 27.2 pg (25-34); MEAN CORPUSCULAR HGB CONC 30.7 g/dl (32-36); MEAN PLATELET VOLUME 10.4 fL (7.4-10.4); PLATELET COUNT 263 K/uL (130-400); RED BLOOD COUNT 3.67 M/uL (4.2-5.4); WHITE BLOOD COUNT 7.77 K/uL (4.8-10.8)
[2017-02-19 07:43] VITALS: BP_SYST 152; BP_SYST 153; BP_DIAS 104; BP_DIAS 106; PULSE 101; PULSE 94; TEMP 36.4; O2SAT 98
[2017-02-19 08:14] LABS: BLOOD UREA NITROGEN 8 mg/dl (7-18); BUN/CREATININE RATIO 15.6 (10-20); CALCIUM 8.7 mg/dl (8.5-10.1); CARBON DIOXIDE 28 mmol/L (21-32); CHLORIDE 103 mmol/L (98-107); CREATININE 0.48 mg/dl (0.60-1.20); GLUCOSE 100 mg/dl (70-99); SODIUM 141 mmol/L (136-145)
[2017-02-19] MEDS: MAGNESIUM OXIDE 400 MG TAB PO SCH ×2 (08:25→20:56)
[2017-02-19] MEDS: LISINOPRIL 5 MG TAB PO SCH (08:25)
[2017-02-19] MEDS: ATORVASTATIN 40 MG TAB PO SCH (08:25)
[2017-02-19] MEDS: ASPIRIN 81 MG CHEW NG SCH (08:25)
[2017-02-19] MEDS: RIFAXIMIN TAB 550 MG TAB PO SCH ×2 (08:26→20:55)
[2017-02-19] MEDS: ESCITALOPRAM OXALATE 10 MG TAB PO SCH (08:26)
[2017-02-19] MEDS: CARVEDILOL 6.25 MG TAB PO SCH ×2 (08:26→20:54)
[2017-02-19] MEDS: POT PHOSPHATE MONOBASIC W/ SOD TAB PO SCH ×4 (08:26→20:56)
[2017-02-19] MEDS: THIAMINE HCL 100 MG TAB PO SCH (08:26)
[2017-02-19] MEDS: MULTIVITAMINS W/MINERALS 15ML UDP PO SCH (08:27)
[2017-02-19] MEDS: BOOST VANILLA PUDDING CUP PO SCH ×3 (08:28→20:55)
[2017-02-19] MEDS: ENOXAPARIN 40 MG/0.4 ML SYR SQ SCH (08:29)
[2017-02-19] MEDS: NICOTINE 21 MG/24 HR TDSY TD SCH (08:29)
[2017-02-19] MEDS: LANSOPRAZOLE SOLUTAB 30 MG NG SCH (08:29)
[2017-02-19 08:49] LABS: MAGNESIUM 1.8 mg/dl (1.8-2.4)
[2017-02-19] MEDS ORDERED: CARVEDILOL 3.125 MG TAB PO ONE (09:30)
--- NOTE | 2017-02-19 11:48 | Progress Note ---
Subjective Date of Service: Feb 19, 2017. Subjective Pt evaluation today including: conversation w/ patient, conversation w/ family , physical exam, chart review, lab review, review of studies, conversation w/ disaster recovery consultant, review of inpatient medication list Awake alert, conversational, pleasant, mild lethargic, but is better than yesterday, reported no appetite, Otherwise no other complaint Problem List Medical Problems: (1) Acute electrocardiogram changes Status: Acute (2) Dizziness Status: Acute (3) Elevated troponin Status: Acute (4) Hypokalemia Status: Acute (5) Hypomagnesemia Status: Acute (6) Weakness Status: Acute Review of Systems Constitutional: + weakness, + fatigue, No see HPI, No fever, No chills, No sweats, No weight loss, No problem reported Eyes: No see HPI, No worsening of vision, No eye pain, No redness, No discharge , No diplopia, No problem reported ENT: No see HPI, No hearing loss, No unusual epistaxis, No nasal symptoms, No sore throat, No tinnitus, No dental problems, No trouble swallowing, No problem reported Respiratory: + shortness of breath, No see HPI, No cough, No sputum, No wheezing, No dyspnea on exertion, No dyspnea at rest, No hemoptysis, No problem reported Cardiac: No see HPI, No chest pain, No orthopnea, No PND, No edema, No claudication, No palpitations, No problem reported Abdomen: + nausea Musculoskeletal: No see HPI, No joint pain, No muscle pain, No swelling, No calf pain, No problem reported Female : No see HPI, No dysuria, No urinary frequency, No hematuria, No incontinence, No abnormal vaginal bleeding, No vaginal discharge, No problem reported Neurologic: No see HPI, No memory loss, No paralysis, No weakness, No numbness/ tingling, No vertigo, No balance problems, No problem reported Psychiatric: + problem reported (mild lethargic) Heme: No see HPI, No abnormal bleeding/bruising, No clotting problems, No swollen lymph nodes, No night sweats, No problem reported Endo: No see HPI, No fatigue, No excessive thirst, No excessive urination, No problem reported Skin: No see HPI, No rash, No itch, No new/changing skin lesions, No color change, No bleeding, No problem reported Objective Vital Signs Date Time Temp Pulse Resp B/P (MAP) Pulse Ox O2 Delivery O2 Flow Rate FiO2 02/19/17 07:43 36.4 94 22 153/104 (120) 98 Nasal Cannula 4.0 101 152/106 (121) 02/19/17 00:00 Nasal Cannula 4.0 02/18/17 23:39 36.4 101 18 143/93 (110) 92 Nasal Cannula 4.0 02/18/17 20:00 96 Nasal Cannula 4.0 02/18/17 17:36 150/100 (117) 02/18/17 16:00 Nasal Cannula 4.0 02/18/17 15:15 36.6 90 20 164/121 (135) 96 Nasal Cannula 4.0 02/18/17 11:33 139/99 (112) Physical Exam General Appearance: WD/WN, no apparent distress, + pertinent finding (mild lethargic and confused, but look better and then yesterday) Eyes: normal inspection, PERRL, EOMI, sclerae normal ENT: normal ENT inspection, hearing grossly normal, pharynx normal, + pertinent finding (dry mucous membranes) Neck: supple, no adenopathy, thyroid normal, no JVD, no carotid bruits, trachea midline Respiratory/Chest: chest non-tender, normal breath sounds, no respiratory distress, no accessory muscle use, + decreased breath sounds Cardiovascular: regular rate, rhythm, no gallop, no JVD, no murmur, + pertinent finding (2+ edema) Abdomen: normal bowel sounds, non tender, soft, no organomegaly, no pulsatile mass Extremities: normal range of motion, non-tender, normal inspection, no pedal edema, no calf tenderness, normal capillary refill, pelvis stable, + swelling (2 +) Neurologic/Psychiatric: player manager II-XII nml as tested, no motor/sensory deficits, alert, normal mood/affect, oriented x 3 Skin: normal color, warm/dry, no rash Lymphatic: no adenopathy Laboratory Results Last 24 Hours Test 02/18/17 20:40 02/19/17 07:03 02/19/17 07:10 02/19/17 07:22 Bedside Glucose 122 mg/dl 102 mg/dl Potassium Level 3.0 mmol/L mmol/L Magnesium Level 1.8 mg/dl mg/dl White Blood Count 7.77 K/uL Red Blood Count 3.67 M/uL Hemoglobin 10.0 g/dL Hematocrit 32.6 % Mean Corpuscular Volume 88.8 fL Mean Corpuscular Hemoglobin 27.2 pg Mean Corpuscular Hemoglobin Concent 30.7 g/dl RDW Standard Deviation 68.0 fL RDW Coefficient of Variation 21.0 % Platelet Count 263 K/uL Mean Platelet Volume 10.4 fL Sodium Level 141 mmol/L Chloride Level 103 mmol/L Carbon Dioxide Level 28 mmol/L Anion Gap 10.0 mmol/L Blood Urea Nitrogen 8 mg/dl Creatinine 0.48 mg/dl Est Creatinine Clear Calc Drug Dose 117.9 ml/min Estimated GFR () 121.0 Estimated GFR (Non- 104.4 BUN/Creatinine Ratio 15.6 Random Glucose 100 mg/dl Calcium Level 8.7 mg/dl Assessment and Plan 61 yo female with worsening weakness/dizziness x few weeks. Presented with NSTEMI, new systolic heart failure. she had ventricular tachycardia, shock liver and a progressive encephalopathy during her stay exhibited by profound lethargy and unresponsiveness. 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 - no further intervention -- Head CT w/ no acute intracranial findings, MRI shows no stroke, EEG shows no epileptiform activity Hyperammonemia possible alcoholic liver disease/recent liver shock, was significant high at 68, required Lactulose RESOLVED: Today's ammonia is 20, Continue Lactulose 30 gm q6 hrs PRN and Xifaxan 550 mg BID repeat ammonia level if needed Hx of ETOH Abuse- STABLE: - Librium and detox protocols weaned and completed - Thiamine 100 mg daily, Folic acid 1 gm daily Elevated LFTs with fatty liver, secondary to ischemic hepatitis from [place]- STABLE : - Liver US 01/30- unremarkable sonographic assessment of the hepatic and portal vasculature - Abdominal US 02/04- Moderate gallbladder wall thickening, a nonspecific finding. No gallstones. No biliary ductal dilatation. Small amount of ascites and a right pleural effusion. Increased hepatic echogenicity which may reflect fatty infiltration or hepatocellular disease. - LFTs trending down possible early liver cirrhosis with hx of alcohol abuse, ascites, elevated ammonia level, and liver ultrasound shows fatty infiltration Tobacco Abuse: Shellm patch Hypoxic hypercarbic respiratory failure: ABGs reviewed on 02/14: Hypoxic hypercarbic respiratory failure, required BiPAP/O2 supplement Improved resolved swallowing dysfunction with risks of aspiration per recs of speech on 02/10/2017 Pureed diet and thin liquids. 2. Aspiration precautions: patient should be seated fully upright during and for 30 minutes after meal. NO straws. Patient must be ALERT and able to participate with meal. Possible aspiration pneumonia: Completed Zosyn 4.5 g IV Q6H for aspiration x1 week will request speech to re eval b/c mental condition is improving - Was need 1:1, has been every 15 minutes checking for 2 days - Diet: pureed, thin liquids, aspiration precautions- consulted ballistics professor - Treated w/ D5W 08/29 NS + 20 mEq KCL @ 75 ml/hr while NPO Anemia- STABLE: Follow CBC NSTEMI w/ systolic heart failure- STABLE: - Treated w/ IV Heparin drip 01/26-01/29 and IV Lasix - Echo - EF 25% - unable to participate in stress test - ASA 81 mg daily - Continue Coreg Accelerated HTN: Held Lisinopril 5 mg daily on 02/15 due to hypotension- RESOLVED; resume Lisinopril on 02/17 , patient currently blood pressure high likely because of she does not take the pill or is spit it out, has asked RN to help to take pill really today's BP still high even pt takes mold of the pill, will increased coreg Dyslipidemia: - Lipitor 40 mg daily - Lipid panel on 01/26/17- reviewed Hypernatremia with metabolic acidosis- RESOLVED: Nephrology signed off Escherichia Coli UTI- RESOLVED: Treatment of Cipro completed Depression/Anxiety- CANNOT ASSESS: Lexapro 10 mg daily GERD: Lansoprazole 30 mg daily GI Prophylaxis: Prevacid, Maalox PRN, IV Zofran PRN DVT Prophylaxis: Lovenox 40 mg SC daily Code Status: LEVEL V, DNR Disposition: Plan to discharge to SNF, likely [facility], possible tomorrow, Updated him patient's conditions, and discharge plan - Prognosis is very guarded/poor and her fully understand about this, - The nurse report yesterday afternoon, patient's cannot understand about patient's liver conditions, especially when I mentioned about possible liver cirrhosis, would like to have second opinion , or transferred to [facility], - Over the phone with the present of nurse I discussed with the patient's , find out what he really want to know about patient's liver conditions , I explained to him " pt recently have liver shock, plus her alcohol intake hx , and labs results such as ammonia level, and ascites, pt possible have early liver cirrhosis", I will requested GI to come back to further discussion with patient's about patient's liver condition, And then he will decide if he wants to [place] [facility] [place] not. - Consulted palliative care to discuss future goals w/ patient/family - Meeting on 02/15 to discuss goals and contraindication of PEG tube because of patient has ascites - decided on removing NG tube and begin oral feedings with their own risk of aspiration - DNR, but NOT comfort measure only- would still like to continue current medical treatment Continued [facility] stay due to: multiple IV medications needed Discharge planning: alf facility
[2017-02-19 15:44] VITALS: BP 145/97; PULSE 88; TEMP 36.5; O2SAT 99
[2017-02-19 20:00] VITALS: O2SAT 96
[2017-02-19 23:41] VITALS: BP 112/71; PULSE 86; TEMP 35.9; O2SAT 100
[2017-02-20 06:49] LABS: BASO % 0.1 %; BASO ABS # 0.01 K/uL (0-0.2); EOS % 0.3 %; HEMATOCRIT 31.6 % (37-47); IG% 0.1 %; LYMPH % 10.1 %; LYMPH ABS # 0.69 K/uL (1.2-3.4); MEAN CELL VOLUME 90.3 fL (80-100); MEAN CORPUSCULAR HEMOGLOBIN 27.4 pg (25-34); MEAN CORPUSCULAR HGB CONC 30.4 g/dl (32-36); MEAN PLATELET VOLUME 10.2 fL (7.4-10.4); NEUT % 82.4 %; PLATELET COUNT 223 K/uL (130-400); WHITE BLOOD COUNT 6.86 K/uL (4.8-10.8)
[2017-02-20 07:16] LABS: ANISOCYTOSIS PRESENT; COMPLETE YES; POIKILOCYTOSIS PRESENT
[2017-02-20 07:25] LABS: BUN/CREATININE RATIO 15.7 (10-20); CALCIUM 8.6 mg/dl (8.5-10.1); CREATININE 0.44 mg/dl (0.60-1.20); POTASSIUM 2.6 mmol/L (3.5-5.1)
[2017-02-20 07:30] VITALS: BP 132/97; PULSE 81; TEMP 36.8; O2SAT 94
[2017-02-20] MEDS ORDERED: POTASSIUM CHLORIDE 20 MEQ TABCR PO ONE ×2 (08:30→16:15)
[2017-02-20] MEDS: LISINOPRIL 5 MG TAB PO SCH (08:52)
[2017-02-20] MEDS: ENOXAPARIN 40 MG/0.4 ML SYR SQ SCH (08:52)
[2017-02-20] MEDS: THIAMINE HCL 100 MG TAB PO SCH (08:52)
[2017-02-20] MEDS: RIFAXIMIN TAB 550 MG TAB PO SCH (08:52)
[2017-02-20] MEDS: MAGNESIUM OXIDE 400 MG TAB PO SCH (08:52)
[2017-02-20] MEDS: MULTIVITAMINS W/MINERALS 15ML UDP PO SCH (08:52)
[2017-02-20] MEDS: LANSOPRAZOLE SOLUTAB 30 MG NG SCH (08:52)
[2017-02-20] MEDS: ASPIRIN 81 MG CHEW NG SCH (08:52)
[2017-02-20] MEDS: ATORVASTATIN 40 MG TAB PO SCH (08:53)
[2017-02-20] MEDS: BOOST VANILLA PUDDING CUP PO SCH ×2 (08:53→14:00)
[2017-02-20] MEDS: CARVEDILOL 6.25 MG TAB PO SCH (08:53)
[2017-02-20] MEDS: ESCITALOPRAM OXALATE 10 MG TAB PO SCH (08:53)
[2017-02-20] MEDS: POT PHOSPHATE MONOBASIC W/ SOD TAB PO SCH ×3 (08:53→18:00)
[2017-02-20] MEDS: NICOTINE 21 MG/24 HR TDSY TD SCH (08:54)
[2017-02-20] MEDS: POTASSIUM CHLR 10 MEQ / WTR 10 MEQ in PREMIXED WATER 100 ML IV SCH ×2 (09:34→11:14)
--- NOTE | 2017-02-20 11:05 | Progress Note ---
Progress Note Date of Service Feb 20, 2017. Progress Note GI was asked to contact Mr. Mercado - attempted both contact numbers at 1100. Unable to reach Mr. Mercado. Please page GI midlevel when family is in house today. Will try to contact Mr. Mercado at a later time. I was able to reach Mr. Mercado at 1230. He does not have any questions regarding liver disease or PEG tube. His questions to me were regarding how to get his transferred to a tertiary care center as he does not want his to be discharged to a group home. He was encouraged to discuss transfer to a tertiary care center with the hospitalist or home health care case manager/regional planner. He verbalized understanding. Again, I asked Mr. Mercado if I could answer any questions regarding his 's medical conditions from a GI standpoint and he told me he had no questions for me. Please do not hesitate to call with any questions or concerns. GI to sign off.
--- NOTE | 2017-02-20 12:39 | Hospitalist Progress Note ---
Hospitalist Progress Note Date of Service Feb 20, 2017. (Yumiko Millan ., PA-C) Subjective Pt evaluation today including: conversation w/ patient, physical exam, chart review, lab review, review of studies, review of inpatient medication list Voiding: no voiding problems Patient alert and oriented to person/place. Disoriented to time. States she is feeling well and "just wants to get home to play with her dogs" Patient denies any fever, chills, sweats, lightheadedness, dizziness, vision changes, CP, palpitations, edema, SOB, wheezing, cough, abdominal pain, nausea, vomiting, diarrhea, urinary symptoms, melena, numbness/tingling, weakness, muscle/joint pain, anxiety/depression, active bleeding, or new skin discoloration/changes. Per RN, patient doing well. Tolerating medications/intake OK. (Yumiko Millan, GARRICK-C) Medications Current Inpatient Medications Medications (Trade) Dose Ordered Sig/Debbie Route Start Time Stop Time Status Last Admin Dose Admin Acetaminophen (Tylenol Tab) 650 mg Q4H PRN PO 01/26/17 14:30 02/25/17 14:29 02/17/17 16:52 650 MG Al Hydrox/Mg Hydrox/Simethicone (Maalox Max Susp) 15 ml Q4H PRN PO 01/26/17 14:30 02/25/17 14:29 Ondansetron HCl (Zofran Inj) 4 mg Q6H PRN IV 01/26/17 14:30 02/25/17 14:29 02/14/17 09:06 4 MG Atorvastatin Calcium (Lipitor Tab) 40 mg QAM PO 01/27/17 09:00 02/26/17 08:59 02/20/17 08:53 40 MG Escitalopram Oxalate (Lexapro Tab) 10 mg DAILY PO 01/27/17 09:00 02/26/17 08:59 02/20/17 08:53 10 MG Nitroglycerin (Nitrostat Tab) 0.4 mg PRN PRN SL 01/26/17 15:00 02/25/17 14:59 Dextrose (Dextrose 50% 50ML Syringe) 25-50ML OF 50% DW IV FOR... UD PRN IV 01/27/17 13:00 02/26/17 12:59 Lisinopril (Zestril Tab) 5 mg QAM PO 01/29/17 09:00 02/27/17 08:59 Future hold 02/20/17 08:52 5 MG Nicotine (Nicoderm Cq 21MG Patch) 1 patch QAM TD 01/31/17 09:00 03/02/17 08:59 02/20/17 08:54 1 PATCH Miscellaneous (Remove Nicoderm Patch) 1 ea HS N/A 01/30/17 21:00 03/01/17 20:59 02/17/17 20:45 1 EA Hydrocortisone (Proctozone Hc 2.5% Crm) 1 appln Q8 PRN EXT 01/30/17 18:00 03/01/17 17:59 Enteral Nutritional Formula (Boost Pudding) 1 cup TID PO 02/03/17 14:00 03/05/17 13:59 02/20/17 08:53 1 CUP Enoxaparin Sodium (Lovenox Inj) 40 mg QAM SQ 02/04/17 09:00 03/06/17 08:59 02/20/17 08:52 40 MG Aspirin (Aspirin Chew) 81 mg DAILY NG 02/05/17 09:30 03/07/17 09:29 02/20/17 08:52 81 MG Enteral Nutritional Formula (Fibersource HN) 1,000 ml UD PRN NG 02/05/17 10:30 03/07/17 10:29 Future Hold 02/08/17 19:13 1,000 ML Folic Acid (Folvite Tab) 1 mg DAILY@0900 NG 02/06/17 09:00 03/08/17 08:59 02/20/17 08:52 1 MG Lansoprazole (Prevacid Solutab) 30 mg DAILY NG 02/06/17 09:00 03/08/17 08:59 02/20/17 08:52 30 MG Sterile Water (Tube Feeding Water Flush) 250 ea Q8 NG 02/07/17 14:00 03/07/17 11:59 Future Hold 02/10/17 06:09 250 EA Lactulose (Chronulac Syrup) 30 gm Q6 PRN PO 02/14/17 17:00 03/16/17 16:59 Rifaximin (Xifaxan Tab) 550 mg BID PO 02/14/17 21:00 03/16/17 20:59 02/20/17 08:52 550 MG Multivitamins Therapeutic (Cerovite Liquid) 15 ml QAM PO 02/15/17 09:00 03/17/17 08:59 02/20/17 08:52 15 ML Potassium/ Phosphorus/Sodium (Phospha 250 Neutral 155-852-130 Mg) 1 tab QID PO 02/16/17 13:00 03/18/17 12:59 02/20/17 11:56 1 TAB Thiamine HCl (Vitamin B-1 Tab) 100 mg QAM PO 02/17/17 09:00 03/19/17 08:59 02/20/17 08:52 100 MG Magnesium Oxide (Mag-Ox Tab) 400 mg BID PO 02/17/17 21:00 03/19/17 20:59 02/20/17 08:52 400 MG Carvedilol (Coreg Tab) 9.375 mg BID PO 02/19/17 21:00 03/21/17 20:59 02/20/17 08:53 9.375 MG (Yumiko Millan, PA-C) Objective Vital Signs Date Time Temp Pulse Resp B/P (MAP) Pulse Ox O2 Delivery O2 Flow Rate FiO2 02/20/17 07:30 36.8 81 18 132/97 (109) 94 4.0 02/19/17 23:59 Nasal Cannula 4.0 02/19/17 23:41 35.9 86 112/71 (85) 100 Nasal Cannula 4.0 02/19/17 20:00 96 Nasal Cannula 4.0 02/19/17 16:00 Nasal Cannula 4.0 02/19/17 15:44 36.5 88 20 145/97 (113) 99 Room Air (Yumiko Millan, PA-C) Physical Exam General Appearance: no apparent distress, + pertinent finding (4L O2 NC ) Eyes: normal inspection, PERRL ENT: hearing grossly normal Neck: supple Respiratory/Chest: lungs clear, no respiratory distress, no accessory muscle use, + decreased breath sounds Cardiovascular: regular rate, rhythm Abdomen: normal bowel sounds, non tender, soft Extremities: no pedal edema, no calf tenderness, + swelling (+2 bilateral lower extremity edema ) Neurologic/Psychiatric: alert, normal mood/affect, + disoriented (time) Skin: normal color, warm/dry, no rash (Yumiko Millan .VENUS) Laboratory Results Last 24 Hours Test 02/19/17 20:05 02/20/17 06:22 Bedside Glucose 122 mg/dl White Blood Count 6.86 K/uL Red Blood Count 3.50 M/uL Hemoglobin 9.6 g/dL Hematocrit 31.6 % Mean Corpuscular Volume 90.3 fL Mean Corpuscular Hemoglobin 27.4 pg Mean Corpuscular Hemoglobin Concent 30.4 g/dl Platelet Count 223 K/uL Mean Platelet Volume 10.2 fL Neutrophils (%) (Auto) 82.4 % Lymphocytes (%) (Auto) 10.1 % Monocytes (%) (Auto) 7.0 % Eosinophils (%) (Auto) 0.3 % Basophils (%) (Auto) 0.1 % Neutrophils # (Auto) 5.65 K/uL Lymphocytes # (Auto) 0.69 K/uL Monocytes # (Auto) 0.48 K/uL Eosinophils # (Auto) 0.02 K/uL Basophils # (Auto) 0.01 K/uL RDW Standard Deviation 69.2 fL RDW Coefficient of Variation 21.3 % Immature Granulocyte % (Auto) 0.1 % Immature Granulocyte # (Auto) 0.01 K/uL Poikilocytosis PRESENT Anisocytosis PRESENT Sodium Level 144 mmol/L Potassium Level 2.6 mmol/L Chloride Level 103 mmol/L Carbon Dioxide Level 32 mmol/L Anion Gap 9.0 mmol/L Blood Urea Nitrogen 7 mg/dl Creatinine 0.44 mg/dl Est Creatinine Clear Calc Drug Dose 128.7 ml/min Estimated GFR () 124.5 Estimated GFR (Non- 107.4 BUN/Creatinine Ratio 15.7 Random Glucose 99 mg/dl Calcium Level 8.6 mg/dl Phosphorus Level 3.0 mg/dl Total Bilirubin 1.2 mg/dl Direct Bilirubin 0.6 mg/dl Aspartate Amino Transf (AST/SGOT) 31 U/L Alanine Aminotransferase (ALT/SGPT) 81 U/L Alkaline Phosphatase 113 U/L Total Protein 5.8 gm/dl Albumin 2.5 gm/dl (Yumiko Millan .HAYDEEC) Assessment and Plan Pt is a 61 yo female with worsening weakness/dizziness x few weeks. Presented with NSTEMI, new systolic heart failure. Unfortunately she had ventricular tachycardia, shock liver and a progressive encephalopathy during her stay exhibited by profound lethargy and unresponsiveness. 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 - no further intervention -- Head CT w/ no acute intracranial findings, MRI shows no stroke, EEG shows no epileptiform activity - Consult palliative care to discuss future goals w/ patient/family -- Meeting on 01/27 to discuss goals and contraindication of PEG tube- decided on removing NG tube and begin oral feedings; DNR, but NOT comfort measure only- would still like to continue current medical treatment - Ativan 0.5-1 mg q4 hrs PRN - Hyperammonemia- RESOLVED: Continue Lactulose 30 gm q6 hrs PRN and Xifaxan 550 mg BID- repeat ammonia level tomorrow AM - ABGs reviewed on 02/14: Hypoxic hypercarbic respiratory failure- continue BiPAP /O2 supplement - Diet: pureed, thin liquids, aspiration precautions- consulted desktop support technician and speech therapy - Treated w/ D5W 08/29 NS + 20 mEq KCL @ 75 ml/hr while NPO Possible aspiration pneumonia: Completed Zosyn 4.5 g IV Q6H for aspiration x1 week Hypokalemia at 2.6 on 02/20: - Replete w/ IV 10 mEq KCL + 40 mEQ KCL PO - Follow PRP and replace PRN Hypomagnesium- RESOLVED : - Treated w/ 1 gm IV x1 on 02/14 and x3 bags on 02/15 - Treat w/ 1 gm IV x2 and begin Mag-Ox supplementation 400 mg BID on 02/16 - Follow mag level Hypophosphatemia- RESOLVED: - Replete w/ Phosphate supplement PO QID - Repeat phosphorus level tomorrow Anemia- STABLE: Follow CBC ETOH Abuse- STABLE: - Librium and detox protocols weaned and completed - Thiamine 100 mg daily, Folic acid 1 gm daily Tobacco Abuse: NicoDerm patch Elevated LFTs with fatty liver, secondary to ischemic hepatitis from [place]- STABLE : - Liver US 01/30- unremarkable sonographic assessment of the hepatic and portal vasculature - Abdominal US 02/04- Moderate gallbladder wall thickening, a nonspecific finding. No gallstones. No biliary ductal dilatation. Small amount of ascites and a right pleural effusion. Increased hepatic echogenicity which may reflect fatty infiltration or hepatocellular disease. - LFTs trending down NSTEMI w/ systolic heart failure- STABLE: - Treated w/ IV Heparin drip 01/26-01/29 and IV Lasix - Echo - EF 25% - unable to participate in stress test - ASA 81 mg daily - Continue Coreg 9.375 mg BID HTN: Lisinopril 5 mg daily Dyslipidemia: - Lipitor 40 mg daily - Lipid panel on 01/26/17- reviewed Hypernatremia with metabolic acidosis- RESOLVED: Nephrology signed off Escherichia Coli UTI- RESOLVED: Treatment of Cipro completed Depression/Anxiety- CANNOT ASSESS: Lexapro 10 mg daily GERD: Lansoprazole 30 mg daily GI Prophylaxis: Prevacid, Maalox PRN, IV Zofran PRN DVT Prophylaxis: Lovenox 40 mg SC daily Code Status: LEVEL V, DNR Disposition: At this time, patient is medically stable for discharge to [facility]. However, considering referral to [facility] for second opinion- would like to speak to GI first. -- Hopefully GI will get a hold of today and patient can be discharge to [facility] vs [facility] tomorrow (Yumiko Millan ., HAYDEEC)
--- NOTE | 2017-02-20 14:14 | Discharge Instructions ---
Discharge Instructions Date of Service Feb 20, 2017. Admission Reason for Admission: Nstemi Discharge Discharge Diagnosis / Problem: NSTEMI; Multifactorial encephalopathy Discharge Goals Goal(s): Decrease discomfort, Improve function, Increase independence, Improve disease control, Improve nutritional status, Learn about illness, Diagnostic testing, Therapeutic intervention, Prevent Disease Progression Activity Recommendations Activity Level: Assistance Required Therapies: Physical Therapy, Occupational Therapy, Speech Therapy . 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 - no further intervention -- Head CT w/ no acute intracranial findings, MRI shows no stroke, EEG shows no epileptiform activity - Consult palliative care to discuss future goals w/ patient/family -- Meeting on 01/27 to discuss goals and contraindication of PEG tube- decided on removing NG tube and begin oral feedings; DNR, but NOT comfort measure only- would still like to continue current medical treatment - Ativan 0.5-1 mg q4 hrs PRN - Diet: pureed, thin liquids, aspiration precautions- consulted etl programmer and speech therapy - Treated w/ D5W 08/29 NS + 20 mEq KCL @ 75 ml/hr while NPO Hypoxic hypercarbic respiratory failure- IMPROVED: - ABGs reviewed on 02/14 - Treated w/ BiPAP/O2 supplement- currently requiring 4L O2 NC Hyperammonemia- RESOLVED: Continue Lactulose 30 gm q6 hrs PRN and Xifaxan 550 mg BID Possible aspiration pneumonia: Completed Zosyn 4.5 g IV Q6H for aspiration x1 week Hypokalemia at 2.6 on 02/20: - Replete w/ IV 10 mEq KCL + 40 mEQ KCL PO - Follow PRP and replace PRN Hypomagnesium- RESOLVED : - Treated w/ 1 gm IV x1 on 02/14 and x3 bags on 02/15 - Treat w/ 1 gm IV x2 and begin Mag-Ox supplementation 400 mg BID on 02/16 - Follow mag level Hypophosphatemia- RESOLVED: - Replete w/ Phosphate supplement PO QID - Follow phosphorus level Anemia- STABLE: Follow CBC ETOH Abuse- STABLE: - Librium and detox protocols weaned and completed - Thiamine 100 mg daily, Folic acid 1 gm daily Tobacco Abuse: NicoDerm patch Elevated LFTs with fatty liver, secondary to ischemic hepatitis from [place]- STABLE : - Liver US 01/30- unremarkable sonographic assessment of the hepatic and portal vasculature - Abdominal US 02/04- Moderate gallbladder wall thickening, a nonspecific finding. No gallstones. No biliary ductal dilatation. Small amount of ascites and a right pleural effusion. Increased hepatic echogenicity which may reflect fatty infiltration or hepatocellular disease. - LFTs trending down - Consulted GI NSTEMI w/ systolic heart failure- STABLE: - Treated w/ IV Heparin drip 01/26-01/29 and IV Lasix - Echo - EF 25% - unable to participate in stress test - ASA 81 mg daily - Continue Coreg 9.375 mg BID - Consulted cardiology HTN: Lisinopril 5 mg daily and Coreg as above Dyslipidemia: - Lipitor 40 mg daily - Lipid panel on 01/26/17- reviewed Hypernatremia with metabolic acidosis- RESOLVED: Nephrology consulted Escherichia Coli UTI- RESOLVED: Treatment of Cipro completed Depression/Anxiety- CANNOT ASSESS: Lexapro 10 mg daily GERD: Lansoprazole 30 mg daily GI Prophylaxis: Prevacid, Maalox PRN, IV Zofran PRN DVT Prophylaxis: Lovenox 40 mg SC daily Code Status: LEVEL V, DNR Current Hospital Diet Patient's current hospital diet: Regular Diet Discharge Diet Recommended Diet: Regular Diet Diet Texture: Pureed (blended smooth) Procedures Procedures Performed: Head CT Brain MRI Liver US Abdomen US KUB CXR Pending Studies Studies pending at discharge: no Physician Orders On Transfer Special Precautions: Aspiration precautions: Speech Recommendations- 1. Pureed diet and thin liquids. 2. Aspiration precautions: patient should be seated fully upright during and for 30 minutes after meal. NO straws. 3. Patient must be ALERT and able to participate with meal. Encourage intake. Fall precautions Dressing Changes: None IV Therapy: None Vital Signs: Routine POLST Discussion: without POLST completion Laboratory Results Last 24 Hours Test 02/19/17 20:05 02/20/17 06:22 Bedside Glucose 122 mg/dl White Blood Count 6.86 K/uL Red Blood Count 3.50 M/uL Hemoglobin 9.6 g/dL Hematocrit 31.6 % Mean Corpuscular Volume 90.3 fL Mean Corpuscular Hemoglobin 27.4 pg Mean Corpuscular Hemoglobin Concent 30.4 g/dl Platelet Count 223 K/uL Mean Platelet Volume 10.2 fL Neutrophils (%) (Auto) 82.4 % Lymphocytes (%) (Auto) 10.1 % Monocytes (%) (Auto) 7.0 % Eosinophils (%) (Auto) 0.3 % Basophils (%) (Auto) 0.1 % Neutrophils # (Auto) 5.65 K/uL Lymphocytes # (Auto) 0.69 K/uL Monocytes # (Auto) 0.48 K/uL Eosinophils # (Auto) 0.02 K/uL Basophils # (Auto) 0.01 K/uL RDW Standard Deviation 69.2 fL RDW Coefficient of Variation 21.3 % Immature Granulocyte % (Auto) 0.1 % Immature Granulocyte # (Auto) 0.01 K/uL Poikilocytosis PRESENT Anisocytosis PRESENT Sodium Level 144 mmol/L Potassium Level 2.6 mmol/L Chloride Level 103 mmol/L Carbon Dioxide Level 32 mmol/L Anion Gap 9.0 mmol/L Blood Urea Nitrogen 7 mg/dl Creatinine 0.44 mg/dl Est Creatinine Clear Calc Drug Dose 128.7 ml/min Estimated GFR () 124.5 Estimated GFR (Non- 107.4 BUN/Creatinine Ratio 15.7 Random Glucose 99 mg/dl Calcium Level 8.6 mg/dl Phosphorus Level 3.0 mg/dl Total Bilirubin 1.2 mg/dl Direct Bilirubin 0.6 mg/dl Aspartate Amino Transf (AST/SGOT) 31 U/L Alanine Aminotransferase (ALT/SGPT) 81 U/L Alkaline Phosphatase 113 U/L Total Protein 5.8 gm/dl Albumin 2.5 gm/dl Hemoglobin A1c Test 01/26/17 12:35 Range/Units Estimated Average Glucose 140 mg/dl Hemoglobin A1c 6.5 H 4.5-5.6 % Lipid Panel Test 01/26/17 12:35 Range/Units Triglycerides Level 105 0-150 mg/dl Cholesterol Level 152 0-200 mg/dl HDL Cholesterol 69 mg/dl Cholesterol/HDL Ratio 2.2 LDL Cholesterol, Calculated 62 mg/dl Medical Emergencies . Who to Call and When: Medical Emergencies: If at any time you feel your situation is an emergency, please call 911 immediately. . Non-Emergent Contact Non-Emergency issues call your: Primary Care Provider . . "Provider Documentation" section prepared by Yumiko Millan. . Core Measure Problem Core Measures: AMI AMI Core Measures Reason no ASA as I/P: Treatment provided - N/A Reason no ASA at D/C: Treatment provided - N/A Reason no statin as I/P: Treatment provided - N/A Reason no statin at D/C: Treatment provided - N/A
[2017-02-20] MEDS ORDERED: CRG625 PO (14:24)
--- NOTE | 2017-02-20 14:30 | Discharge Summary ---
Discharge Summary Date of Service Feb 20, 2017. (Yumiko Millan, [facility]EN[facility]) Discharge Summary Admission Date: Jan 26, 2017 at 14:26 Discharge Date: Feb 20, 2017 Principal Diagnosis: NSTEMI; Multifactorial encephalopathy Problems/Secondary Diagnoses: Multifactorial encephalopathy, secondary to organic brain abnormality w/ vascular insufficiency and chronic alcoholism made worse by hepatitis Hypoxic hypercarbic respiratory failure Hyperammonemia Possible aspiration pneumonia Hypokalemia Hypomagnesium Hypophosphatemia Anemia ETOH Abuse Tobacco Abuse Elevated LFTs with fatty liver, secondary to ischemic hepatitis from [place] NSTEMI w/ systolic heart failure HTN Dyslipidemia Hypernatremia with metabolic acidosis Escherichia Coli UTI Depression/Anxiety GERD Immunizations: Have You Had Influenza Vaccine: Yes Influenza Vaccine Date: Jun 05, 2009 History of Tetanus Vaccine?: Yes History of Pneumococcal: Yes Pneumococcal Date: Mar 05, 2009 History of Hepatitis B Vaccine: No Procedures: ECHOCARDIOGRAM: Interpretation Summary * Name: JOSE R INFANTE Study Date: 01/27/2017 09:10 AM BP: 156/106 mmHg * [place] [facility] [place]\\[place] HR: 83 * : 1955 (M/d/yyyy) Gender: Female Height: 63 in * Age: 61 yrs Ethnicity: MO Weight: 169 lb * Ordering Physician: Luli Singh * Referring Physician: Self, Referred * Performed By: Yenny Owusu RDCS * * Reason For Study: CHEST PAIN * BSA: 1.8 m2 * Moderate - severe left ventricular systolic dysfunction. * Mild right ventricular systolic dysfunction. * Borderline left and mild right ventricular dilatation. * Moderate biatrial dilatation. * Severe mitral regurgitation. * Moderate - severe tricuspid regurgitation. * Moderate pulmonary hypertension. * Elevated central venous pressure. * Small pericardial effusion without tamponade. Procedure Details * A complete two-dimensional transthoracic echocardiogram was performed (2D, M- mode, Doppler and color flow Doppler). Left Ventricle * The left ventricle is borderline dilated. * There is normal left ventricular wall thickness. * Ejection Fraction = 25-30%. * Left ventricular systolic function is moderate to severely reduced. * There is moderate to severe global hypokinesis of the left ventricle. Right Ventricle * The right ventricle is moderately dilated. * The right ventricular systolic function is mildly reduced. Atria * The left atrium is moderately dilated. * The right atrium is moderately dilated. * No ASD detected; PFO is not assessed. Mitral Valve * The mitral valve is normal. * There is no mitral valve stenosis. * There is severe mitral regurgitation. Tricuspid Valve * The tricuspid valve is normal. * There is no tricuspid stenosis. * There is moderate to severe tricuspid regurgitation. * Right ventricular systolic pressure is elevated at 40-50mmHg. Aortic Valve * The aortic valve is trileaflet. * The aortic valve opens well. * Aortic stenosis is absent. * No aortic regurgitation is present. Pulmonic Valve * The pulmonic valve is not well visualized. * The pulmonary valve is inadequately visualized, but the Doppler data is adequate for interpretation. * There is no significant pulmonary regurgitation. Great Vessels * The aortic root is normal size. * Mildly dilated ascending aorta. Pericardium/Pleural * Small pericardial effusion. * There are no echocardiographic indications of cardiac tamponade. Great Vessels * The inferior vena cava is mildly dilated. MMode 2D Measurements and Calculations IVSd 1.1 cm IVSs 1.3 cm LVIDd 5.4 cm LVIDs 4.5 cm LVPWd 1.1 cm LVPWs 1.8 cm IVS/LVPW 0.98 FS 16.9 % EDV(Teich) 143.2 ml ESV(Teich) 93.1 ml EF(Teich) 35.0 % EDV(cubed) 160.2 ml ESV(cubed) 91.9 ml EF(cubed) 42.6 % % IVS thick 20.3 % % LVPW thick 62.2 % LV mass(C)d 238.3 grams LV mass(C)dI 132.4 grams/m\\S\\2 LV mass(C)s 294.8 grams LV mass(C)sI 163.7 grams/m\\S\\2 SV(Teich) 50.1 ml SI(Teich) 27.8 ml/m\\S\\2 SV(cubed) 68.3 ml SI(cubed) 37.9 ml/m\\S\\2 Ao root diam 3.1 cm Ao root area 7.6 cm\\S\\2 LA dimension 5.0 cm asc Aorta Diam 3.9 cm LA/Ao 1.6 LVAd ap4 38.7 cm\\S\\2 LVLd ap4 8.8 cm EDV(MOD-sp4) 139.5 ml EDV(sp4-el) 143.6 ml LVAs ap4 28.4 cm\\S\\2 LVLs ap4 7.7 cm ESV(MOD-sp4) 86.0 ml ESV(sp4-el) 88.3 ml EF(MOD-sp4) 38.4 % EF(sp4-el) 38.5 % LVAd ap2 38.4 cm\\S\\2 LVLd ap2 8.6 cm EDV(MOD-sp2) 144.0 ml EDV(sp2-el) 146.1 ml LVAs ap2 30.8 cm\\S\\2 LVLs ap2 8.1 cm ESV(MOD-sp2) 100.0 ml ESV(sp2-el) 99.1 ml EF(MOD-sp2) 30.5 % EF(sp2-el) 32.1 % LVLd %diff -2.96 % EDV(MOD-bp) 143.7 ml LVLs %diff 5.0 % ESV(MOD-bp) 95.4 ml EF(MOD-bp) 33.6 % SV(MOD-sp4) 53.5 ml SI(MOD-sp4) 29.7 ml/m\\S\\2 SV(MOD-sp2) 44.0 ml SI(MOD-sp2) 24.4 ml/m\\S\\2 SV(MOD-bp) 48.3 ml SI(MOD-bp) 26.8 ml/m\\S\\2 SV(sp4-el) 55.3 ml SI(sp4-el) 30.7 ml/m\\S\\2 SV(sp2-el) 46.9 ml SI(sp2-el) 26.1 ml/m\\S\\2 Doppler Measurements and Calculations Ao V2 max 125.2 cm/sec Ao max PG 6.3 mmHg Ao max PG (full) 5.3 mmHg LV V1 max PG 0.96 mmHg LV V1 max 49.1 cm/sec MR max nell 470.2 cm/sec MR max PG 88.4 mmHg TR max nell 302.8 cm/sec Created: Initialized: 01/27/17; 1121 <Electronically signed by Corby Hdz M.D.> Signed: 01/27/17 1823 Corby Hdz M.D. The status of this report is Signed. Draft = Not yet reviewed or approved by [employer] Technician. Signed = Reviewed and approved by [employer] Monitoring Technician. CT OF THE HEAD WITHOUT CONTRAST CLINICAL HISTORY: Stroke. COMPARISON STUDY: Head CT March 05, 2010 and MRI of the brain September 12, 2016. CT DOSE: 537.48 mGy.cm TECHNIQUE: Helical axial images of the head were obtained without IV contrast. Automated exposure control was utilized for the study. FINDINGS: No acute intracranial hemorrhage, midline shift or mass effect is present. Mild ventricular dilatation is likely due to central atrophy. The basilar cisterns are patent. There are no extra-axial collections. Extensive white matter hypodensities, most pronounced within the parieto-occipital regions are noted. These have progressed since CT of March 15, 2010 but are similar to MRI of September 12, 2016. There are no findings to suggest acute dural sinus thrombosis or acute territorial infarct. There are no significant calvarial abnormalities. Visualized portions of the sinuses and mastoid air cells are clear. IMPRESSION: 1. No acute intracranial findings. 2. Extensive white matter hypodensity. While nonspecific, small vessel disease is favored. Electronically signed by: Adan Posada M.D. 01/26/2017 1:10 PM Dictated Date/Time: 01/26/2017 1:06 PM The status of this report is Signed. Draft = Not yet reviewed or approved by Radiologist. Signed = Reviewed and approved by Radiologist. SINGLE VIEW CHEST CLINICAL HISTORY: Strokelike symptoms. FINDINGS: An AP, portable, upright chest radiograph is compared to study dated 03/05/2010 and correlated with chest CT dated 03/07/2010. The examination is degraded by portable technique and patient rotation. The heart is enlarged and there is atherosclerotic calcification of the thoracic aorta. The pulmonary vasculature is noncongested. Mild emphysema is noted and there is chronic interstitial thickening. No airspace consolidation, large pleural effusion, or pneumothorax is seen. The skeletal structures are osteopenic. The bony thorax is grossly intact. IMPRESSION: Cardiomegaly and mild emphysema. There is no acute cardiopulmonary abnormality. Electronically signed by: Drew Lazo M.D. 01/26/2017 12:47 PM Dictated Date/Time: 01/26/2017 12:45 PM The status of this report is Signed. Draft = Not yet reviewed or approved by Radiologist. Signed = Reviewed and approved by Radiologist CT SCAN OF THE BRAIN WITHOUT IV CONTRAST CLINICAL HISTORY: Change in mental status. COMPARISON STUDY: CT of the brain dated 01/26/2017. TECHNIQUE: Unenhanced axial CT scan of the brain is performed from the vertex to the skull base. The patient was scanned twice due to motion artifact. The examination is significantly motion degraded, and is also degraded by suboptimal positioning within the CT gantry. CT DOSE: 1418.95 mGy.cm FINDINGS: Brain parenchyma: There are age-related involutional changes noting moderate to advanced confluent subcortical and periventricular microangiopathic change. There is no hemorrhage, mass effect, or evidence of acute territorial ischemia by CT criteria. Molina-white matter is preserved. No extra-axial fluid collection is seen. Ventricles, sulci, cisterns: Prominent secondary to involutional change. Intracranial vasculature: There is atherosclerotic calcification of the cavernous carotid arteries.. Calvarium: Unremarkable. Sinuses and mastoids: The visualized paranasal sinuses are clear. The mastoid air cells are well pneumatized. Orbits: The bony orbits are grossly intact. IMPRESSION: 1. Significantly motion degraded examination. 2. Senescent changes as above with no hemorrhage, mass effect, or evidence of acute territorial ischemia by CT criteria. Electronically signed by: Drew Lazo M.D. 01/29/2017 2:21 PM Dictated Date/Time: 01/29/2017 2:17 PM The status of this report is Signed. Draft = Not yet reviewed or approved by Radiologist. Signed = Reviewed and approved by Radiologist. CHEST ONE VIEW PORTABLE HISTORY: eval for asp pneumonia COMPARISON: Chest 01/26/2017. FINDINGS: The heart is mildly enlarged. Progression of the interstitial vascular thickening consistent with mild pulmonary edema. Small bilateral pleural effusions. Patchy bibasilar densities. Postoperative changes within the right humerus. IMPRESSION: 1. Mild pulmonary edema and small bilateral pleural effusions. 2. Patchy bibasilar densities. This could be due to atelectasis from the pulmonary edema or a pneumonia. Follow-up is recommended to ensure resolution. Electronically signed by: Obi Parada M.D. 01/29/2017 8:18 PM Dictated Date/Time: 01/29/2017 8:17 PM The status of this report is Signed. Draft = Not yet reviewed or approved by Radiologist. Signed = Reviewed and approved by Radiologist. DOPPLER ULTRASOUND OF THE HEPATIC AND PORTAL VASCULATURE CLINICAL HISTORY: Myocardial infarction. Generalized abdominal pain. COMPARISON STUDY: Abdominal CT dated 03/07/2010. FINDINGS: Real-time, grayscale, and color Doppler sonography of the hepatic and portal venous vasculature is performed. The examination is degraded by suboptimal patient cooperation. The IVC is patent. The hepatic veins are patent with normal hepatic venous waveforms. The main portal vein as well as the right and left lobe portal veins are patent with normal direction of flow. A right pleural effusion is incidentally noted. IMPRESSION: 1. Unremarkable sonographic assessment of the hepatic and portal vasculature. 2. Small right pleural effusion. Electronically signed by: Drew Lazo M.D. 01/30/2017 9:31 AM Dictated Date/Time: 01/30/2017 9:29 AM The status of this report is Signed. Draft = Not yet reviewed or approved by Radiologist. Signed = Reviewed and approved by Radiologist. CHEST ONE VIEW PORTABLE CLINICAL HISTORY: Assess crackles and diminished breath sounds at bases. COMPARISON STUDY: Chest radiograph January 29, 2017. FINDINGS: Moderate cardiomegaly is unchanged. There is no pneumothorax. There are small bilateral pleural effusions. Diffuse interstitial thickening with multifocal airspace opacities has progressed since exam of January 29, 2017. IMPRESSION: 1. Progression of diffuse interstitial thickening and bilateral opacities which could reflect pulmonary edema or multifocal pneumonia. 2. Small bilateral pleural effusions. Electronically signed by: Adan Posada M.D. 02/03/2017 1:08 PM Dictated Date/Time: 02/03/2017 1:07 PM The status of this report is Signed. Draft = Not yet reviewed or approved by Radiologist. Signed = Reviewed and approved by Radiologist. ABDOMINAL ULTRASOUND, RIGHT UPPER QUADRANT HISTORY: Right upper quadrant abdominal pain. COMPARISON: CT of the chest, abdomen pelvis March 07, 2010 and Doppler ultrasound of the major hepatic vessels January 30, 2017. FINDINGS: This exam is compromised by patient's inability to suspend respiration. A right pleural effusion was incidentally noted. A small amount of ascites is noted. The liver is echogenic. No hepatic lesions are identified by sonography. Flow is not definitively identified within the main portal vein although this could be technical. Moderate gallbladder wall thickening was noted. There was pericholecystic fluid. No gallstones were identified. The pancreatic body is normal. The head and tail are obscured. There is no right hydronephrosis. IMPRESSION: 1. Moderate gallbladder wall thickening, a nonspecific finding. No gallstones. 2. No biliary ductal dilatation. 3. Small amount of ascites and a right pleural effusion. 4. Increased hepatic echogenicity which may reflect fatty infiltration or hepatocellular disease. Portal flow not well demonstrated although this may be technical as the main portal vein was patent on exam of January 30, 2017. Electronically signed by: Adan Posada M.D. 02/04/2017 10:37 PM Dictated Date/Time: 02/04/2017 10:30 PM The status of this report is Signed. Draft = Not yet reviewed or approved by Radiologist. Signed = Reviewed and approved by Radiologist [facility]ASHA CLINICAL HISTORY: NG tube placement confirmation COMPARISON STUDY: CT of the chest abdomen pelvis March 07, 2010. FINDINGS: Visualized portions of the chest demonstrate multifocal airspace opacities and interstitial thickening and left basilar opacity with air bronchograms. The tip of the nasogastric tube projects over the distal body of the stomach. IMPRESSION: Tip of nasogastric tube projects over distal body of stomach. Electronically signed by: Adan Posada M.D. 02/04/2017 1:45 PM Dictated Date/Time: 02/04/2017 1:44 PM The status of this report is Signed. Draft = Not yet reviewed or approved by Radiologist. Signed = Reviewed and approved by Radiologist. CHEST ONE VIEW PORTABLE CLINICAL HISTORY: fluid overload COMPARISON STUDY: 02/03/2017 FINDINGS: The heart is enlarged. There is radiographic evidence of congestive failure with pulmonary edema and bilateral pleural effusions. There are associated bilateral airspace opacities, likely representing pulmonary edema although a superimposed multifocal pneumonia could appear similar.. There is been interval insertion of a nasogastric tube which passes into the stomach. There is an internally fixated mid right humeral fracture. There is radiographic evidence of nonunion with hardware loosening.[ IMPRESSION: 1. Persistent congestive failure with pulmonary edema, bilateral pleural effusions, and bilateral airspace opacities 2. Nasogastric tube within the stomach 3. Ununited internally fixated mid right humeral fracture with evidence of hardware loosening Electronically signed by: Kg Doran M.D. 02/05/2017 9:31 AM Dictated Date/Time: 02/05/2017 9:27 AM The status of this report is Signed. Draft = Not yet reviewed or approved by Radiologist. Signed = Reviewed and approved by Radiologist CHEST ONE VIEW PORTABLE CLINICAL HISTORY: NG placement COMPARISON STUDY: Earlier in the day FINDINGS: The heart remains enlarged. There is a nasogastric tube which passes into the stomach. There are persistent extensive bilateral pulmonary airspace opacities. The study is limited secondary to mild motion artifact. There are internally fixated right humeral fracture is again evident. There is evidence for nonunion with hardware loosening[ IMPRESSION: 1. Persistent congestive failure with pulmonary edema and bilateral pulmonary airspace opacities 2. Suspected bilateral pleural effusions 3. Patient's nasogastric tube can be visualized to the level of the stomach Electronically signed by: Kg Doran M.D. 02/05/2017 10:29 PM Dictated Date/Time: 02/05/2017 10:27 PM The status of this report is Signed. Draft = Not yet reviewed or approved by Radiologist. Signed = Reviewed and approved by Radiologist. KUB HISTORY: NG TUBE PLACEMENT COMPARISON: None. FINDINGS: The bowel gas pattern is unremarkable. There are no dilated loops of small bowel to suggest an obstruction. No renal calculi. No ureteral calculi. No pneumoperitoneum or pneumatosis. NG tube is looped within the proximal stomach with the tip terminating in the midesophagus. IMPRESSION: NG tube is looped within the proximal stomach with the tip terminating in the midesophagus. This requires repositioning. Electronically signed by: Obi Parada M.D. 02/06/2017 7:46 AM Dictated Date/Time: 02/06/2017 7:44 AM The status of this report is Signed. Draft = Not yet reviewed or approved by Radiologist. Signed = Reviewed and approved by Radiologist. KUB HISTORY: Coresafe placement COMPARISON: KUB 02/06/2017. FINDINGS: The feeding tube is now within the body of the stomach. Small left pleural effusion. Left lower lobe consolidation. Patchy airspace opacities within the bilateral lungs. No renal calculi. No ureteral calculi. No pneumoperitoneum or pneumatosis. IMPRESSION: The feeding tube is within the body of the stomach. Electronically signed by: Obi Parada M.D. 02/06/2017 11:18 AM Dictated Date/Time: 02/06/2017 11:17 AM The status of this report is Signed. Draft = Not yet reviewed or approved by Radiologist. Signed = Reviewed and approved by Radiologist. HEAD CT NONCONTRAST CT DOSE: 1102.02 mGycm HISTORY: Unresponsive. R/O CVA TECHNIQUE: Multiaxial CT images of the head were performed without the use of intravenous contrast. Automated exposure control was utilized for this study. Comparison: None. Findings: Motion artifact. The paranasal sinuses and mastoid air cells are clear. The calvarium and skull base are intact. There is no mass, hematoma, midline shift, acute infarct. White matter hypodensity is nonspecific but suggestive of microvascular ischemic change. The ventricles and sulci demonstrate mild age-related involutional changes. Impression: Motion artifact. No definite acute intracranial abnormality. Electronically signed by: Obi Parada M.D. 02/08/2017 9:45 AM Dictated Date/Time: 02/08/2017 9:36 AM The status of this report is Signed. Draft = Not yet reviewed or approved by Radiologist. Signed = Reviewed and approved by Radiologist CHEST ONE VIEW PORTABLE CLINICAL HISTORY: Tachypnea COMPARISON STUDY: 02/05/2017 FINDINGS: The heart is enlarged. There are bilateral pulmonary airspace opacities right greater than left. There is a nasogastric tube within the stomach. Small subpulmonic pleural effusions are suspected.[ IMPRESSION: Slight progression in the extensive bilateral pulmonary airspace opacities. There are left lower lobe air bronchograms. Small pleural effusions are suspected. Electronically signed by: Kg Doran M.D. 02/08/2017 2:00 PM Dictated Date/Time: 02/08/2017 1:58 PM The status of this report is Signed. Draft = Not yet reviewed or approved by Radiologist. Signed = Reviewed and approved by Radiologist. MRI OF THE BRAIN WITHOUT AND WITH IV CONTRAST CLINICAL HISTORY: encephalopathy mental status change COMPARISON STUDY: No previous studies for comparison. TECHNIQUE: Utilizing a 1.5 Genny magnet and dedicated coil, multiplanar, multiecho imaging of the brain was performed pre and postcontrast administration. IV administration of 8.5 mL of Gadavist contrast was uneventful. FINDINGS: Atrophy. Considerable chronic small vessel change throughout both cerebral hemispheres. Mild compensatory hydrocephalus. No deviation of midline structures. No postcontrast enhancement. Sella and parasellar regions are unremarkable. Moderate mucosal thickening of the mastoid air cells. IMPRESSION: 1. No acute process. 2. Atrophy. 3. Considerable chronic small vessel change. 4. No abnormal postcontrast enhancement. Electronically signed by: Sundar Benson M.D. 02/08/2017 8:47 PM Dictated Date/Time: 02/08/2017 8:44 PM The status of this report is Signed. Draft = Not yet reviewed or approved by Radiologist. Signed = Reviewed and approved by Radiologist [facility] CLINICAL HISTORY: check coresafe placement COMPARISON STUDY: [facility] February 06, 2017. FINDINGS: Left basilar consolidation is incidentally noted. Interstitial thickening with airspace opacities within the right lung are also noted. The tip of the feeding tube projects over the distal body of the stomach. IMPRESSION: Tip of feeding tube within the distal body of the stomach. Electronically signed by: Adan Posada M.D. 02/09/2017 7:12 PM Dictated Date/Time: 02/09/2017 7:11 PM The status of this report is Signed. Draft = Not yet reviewed or approved by Radiologist. Signed = Reviewed and approved by Radiologist. [facility] CLINICAL HISTORY: Verify Cor safe placement tube position COMPARISON STUDY: 02/09/2017 FINDINGS: Feeding tube placed in the distal stomach. IMPRESSION: Feeding tube placed in the distal stomach. Electronically signed by: Sundar Benson M.D. 02/11/2017 5:21 PM Dictated Date/Time: 02/11/2017 5:21 PM The status of this report is Signed. Draft = Not yet reviewed or approved by Radiologist. Signed = Reviewed and approved by Radiologist. ASCITES-ABDOMEN LIMITED CLINICAL HISTORY: assess for ascites, request for PEG tube COMPARISON STUDY: Abdominal ultrasound 02/04/2017. FINDINGS: Small right pleural effusion is again noted. Small amount of ascites within the pelvis. IMPRESSION: Small amount of pelvic ascites. Electronically signed by: Obi Parada M.D. 02/14/2017 4:40 PM Dictated Date/Time: 02/14/2017 4:35 PM The status of this report is Signed. Draft = Not yet reviewed or approved by Radiologist. Signed = Reviewed and approved by Radiologist. CHEST ONE VIEW PORTABLE HISTORY: hypoxia COMPARISON: Chest 02/08/2017. FINDINGS: No pneumothorax. Slight improvement in the pulmonary edema. Left upper lobe airspace opacities have progressed. Small bilateral pleural effusions have progressed. Feeding tube terminates below the diaphragm. The tip is not included in this study. IMPRESSION: 1. Slight improvement in the moderate to severe pulmonary edema. 2. Progression of the left upper lobe airspace opacity and small bilateral pleural effusions. Electronically signed by: Obi Parada M.D. 02/14/2017 4:57 PM Dictated Date/Time: 02/14/2017 4:56 PM The status of this report is Signed. Draft = Not yet reviewed or approved by Radiologist. Signed = Reviewed and approved by Radiologist. Consultations: Cardiology Neurology Nephrology GI Palliative care Critical care (Yumiko Millan PA-C) Procedures: Description This is a 21 electrode EEG with a single channel dedicated to limited EKG. The electrodes were placed in accordance with the International 10-20 system. Fair to poor quality secondary to movement and muscle artifact. Hyperventilation and photic stimulation were not done secondary to mental status. At the start of this recording the patient was in altered mental status. Background was poorly organized with no anterior to posterior gradient. Background was composed of symmetric low to moderate amplitude predominantly 5 Hz theta frequencies with intermixed delta and rarely alpha frequencies. There was no state changes or sleep transients. Interpretation This is an abnormal routine EEG secondary to moderate background disorganization and slowing. There was no electrographic seizures or epileptiform discharges. Clinical Correlation This EEG indicates a moderate encephalopathy of nonspecific etiology. This EEG interpretation was slightly limited due to continuous movement and muscle artifact. <Electronically signed by Hoda Palencia D.O.> Signed: 02/06/17 1125 Item Value Date Time Vitamin B1 Level >1200 nmol/L H 02/01/17 1756 Whole Blood Vitamin B1 Level 86 nmol/L 09/14/16 0914 Vitamin B12 Level 518 pg/mL 01/26/17 1450 25-Hydroxy Vitamin D Total 34.1 ng/ml 09/14/16 0914 Folate 8.12 ng/mL 01/26/17 1450 Thyroid Stimulating Hormone (TSH) 0.918 uIu/ml 01/26/17 1235 Ceruloplasmin 42 MG/DL 02/04/17 1333 Triglycerides Level 105 mg/dl 01/26/17 1235 Cholesterol Level 152 mg/dl 01/26/17 1235 LDL Cholesterol, Calculated 62 mg/dl 01/26/17 1235 VLDL Cholesterol, Calculated 21 mg/dl 01/26/17 1235 HDL Cholesterol 69 mg/dl 01/26/17 1235 Angiotensin Converting Enzyme 24 U/L 01/05/17 1045 Troponin I 0.052 ng/ml *H 01/27/17 1522 Hemoglobin A1c 6.5 % H 01/26/17 1235 Immunoglobulin G 971 mg/dL 01/05/17 1045 Albumin (GABRIELLA) 3.8 g/dL 01/05/17 1045 Anti-Nuclear Antibody Screen NEGATIVE 01/05/17 1045 Anti-Proteinase 3 (c-ANCA) <1.0 AI 01/05/17 1045 Anti-Myeloperoxidase Ab (p-ANCA) <1.0 AI 01/05/17 1045 Anti-Neutrophil Cytoplasmic Ab Negative 01/05/17 1045 SS-A/Ro Antibody <1.0 NEG AI 01/05/17 1045 SS-B/La Antibody <1.0 NEG AI 01/05/17 1045 SM Antibody <1.0 NEG AI 01/05/17 1045 SYRUP [employer]ER Antibody <1.0 NEG AI 01/05/17 1045 Scl-70 (Scleroderma) Antibody <1.0 NEG AI 01/05/17 1045 Anti-Double Strand DNA (Crithidia) NEGATIVE 01/05/17 1045 Anti-Centromere Antibody <1.0 NEG AI 01/05/17 1045 Reticulin IgA Antibody Negative 01/05/17 1045 Tissue Transglutaminase IgA Ab <1 U/ML 01/05/17 1045 Gliadin (Deamidated) IgG Antibody 3 UNITS 01/05/17 1045 Gliadin (Deamidated) IgA Antibody 3 UNITS 01/05/17 1045 Complement C3 106 MG/DL 01/05/17 1045 Complement C4 37 MG/DL 01/05/17 1045 Lyme Disease Specimen Source CSF 01/05/17 1045 Rapid Plasma Reagin NONREACTIVE 09/14/16 0914 Cytomegalovirus IgG Antibody <0.60 U/ML 02/06/17 1605 Cytomegalovirus IgM Antibody <30.00 Au/mL 02/06/17 1605 Quincy-Dailey Virus Capsid Ag IgG Ab >750.00 U/ML 02/06/17 1605 E-B Virus Capsid Ag IgM Ab Index <36.00 U/ML 02/06/17 1605 Hepatitis A IgM Antibody NON-REACTIVE 02/06/17 1605 Hepatitis B Surface Antigen NEG 02/06/17 1605 Hepatitis B Core IgM Antibody NON-REACTIVE 02/06/17 1605 Hepatitis C Antibody Screen NEG 01/26/17 1235 Hepatitis C Antibody NEG 02/06/17 1605 Erythrocyte Sedimentation Rate 9 mm/hr 01/05/17 1045 Last Resulted CBC 02/20/17 06:22 Red Blood Count 3.50, Mean Corpuscular Volume 90.3, Mean Corpuscular Hemoglobin 27.4, Mean Corpuscular Hemoglobin Concent 30.4, Mean Platelet Volume 10.2, Neutrophils (%) (Auto) 82.4, Lymphocytes (%) (Auto) 10.1, Monocytes (%) (Auto) 7.0, Eosinophils (%) (Auto) 0.3, Basophils (%) (Auto) 0.1, Neutrophils # (Auto) 5.65, Lymphocytes # (Auto) 0.69, Monocytes # (Auto) 0.48, Eosinophils # (Auto) 0.02, Basophils # (Auto) 0.01 Last Resulted BMP 02/20/17 06:22 (Kev Lindsay D.Giovani) Medication Reconciliation New Medications: Aspirin (Aspirin Low Strength) 81 Mg Chew 81 MG NG DAILY for 30 Days Carvedilol (Carvedilol) 6.25 Mg Tab 9.375 MG PO BID for 30 Days, #90 TAB Folic Acid (Folic Acid) 1 Mg Tab 1 MG NG DAILY@0900 for 30 Days, TAB Lactulose (Lactulose) 30 Gm/45 Ml Syrp 30 GM PO Q6 for 30 Days hold when have >2 BM Lisinopril (Lisinopril) 5 Mg Tab 5 MG PO QAM for 30 Days, #30 TAB Magnesium Oxide (Magnesium-Oxide) 400 Mg Tab 400 MG PO BID for 30 Days, #60 TAB Multiple Vitamins W/ Minerals (Cerovite Advanced Formula) 1 Liq Liq 15 ML PO QAM for 30 Days Nicotine (Nicoderm Cq) 21 Mg/24 Hr Dis 1 PATCH TD QAM for 30 Days Nutritional Supplements (Boost Pudding) 1 Mis Mis 1 CUP PO TID for 30 Days Pot Phosphate Monobasic W/ Sod (Phospha 250 Neutral) 1 Tab Tab 1 TAB PO QID for 14 Days, #56 TAB Rifaximin (Xifaxan) 550 Mg Tab 550 MG PO BID for 30 Days, #60 TAB Thiamine HCl (Vitamin B-1) 100 Mg Tab 100 MG PO QAM for 30 Days, #30 TAB [Fibersource 1.2 Sascha] () 1000 ML LIQD 1000 ML NG UD PRN for Tube Feeding for 30 Days Continued Medications: Atorvastatin (Lipitor) 40 Mg Tab 40 MG PO QAM Escitalopram (Lexapro) 10 Mg Tab 10 MG PO DAILY Omeprazole (Omeprazole) 20 Mg Tab 20 MG PO BID Sucralfate (Carafate) 1 Gm Tab 1 GM PO QID for 30 Days, #120 TAB 1 Refill Discharge Exam Review of Systems: Constitutional: No fever, No chills, No sweats, No weakness, No fatigue Respiratory: No cough, No shortness of breath, No hemoptysis Cardiovascular: No chest pain, No edema, No palpitations Abdomen: No pain, No nausea, No vomiting, No diarrhea, No constipation Musculoskeletal: No joint pain, No muscle pain, No swelling, No calf pain Genitourinary - Female: No dysuria, No hematuria Neurologic: No weakness, No numbness/tingling Psychiatric: No depression symptoms, No anxiety Hematologic / Lymphatic: No abnormal bleeding/bruising Integumentary: No rash, No itch, No new/changing skin lesions Physical Exam: General Appearance: no apparent distress, + obese, + pertinent finding (4L O2 NC ) Eyes: normal inspection, PERRL ENT: hearing grossly normal Neck: supple Respiratory/Chest: lungs clear, no respiratory distress, no accessory muscle use, + decreased breath sounds Cardiovascular: regular rate, rhythm Abdomen / GI: normal bowel sounds, non tender, soft Extremities: no calf tenderness, no pedal edema, + swelling (+1-2 pitting edema of bilateral lower extremities ) Neurologic/Psychiatric: alert, normal mood/affect, + disoriented (time) Skin: normal color, warm/dry, no rash (Yumiko Millan, PA-C) Hospital Course H&P on admission: The patient is a 61 yo female with hx of HTN, GERD, anxiety/ depression, dyslipidemia who presents to the Emergency Room with complaints of progressively worsening weakness and fatigue and worsening memory. Pt is a poor historian and was not able to be contacted at time of interview. Pt reports these symptoms have worsening over past few weeks. Pt reports she doesnt recall last time she ate, stating it may have been days ago. Does not recall her medical history and reports a history of alcoholism but hasn't had a drink in weeks, but reports only drinking "1-2 vodkas once or twice a week." She states that due to her symptoms, she has followed with Neurology and additionally had a brain MRI in August 2016. The patient denies any recent new medications or history of stroke. She denies any fever, vomiting, diarrhea , or urinary symptoms. Physical Exam Vital Signs Date Time Temp Pulse Resp B/P (MAP) Pulse Ox O2 Delivery O2 Flow Rate FiO2 01/26/17 14:11 108 146/93 01/26/17 14:09 111 19 146/93 92 Room Air 01/26/17 13:30 109 19 149/101 96 01/26/17 12:45 96 Room Air 01/26/17 12:20 102 01/26/17 11:39 36.4 112 20 116/68 97 Room Air General Appearance: WD/WN, no apparent distress Eyes: normal inspection, PERRL, EOMI Neck: supple, no adenopathy, thyroid normal Respiratory/Chest: chest non-tender, lungs clear, normal breath sounds Cardiovascular: no gallop, no JVD, no murmur, + tachycardia Abdomen/GI: normal bowel sounds, non tender, soft, no organomegaly Back: normal inspection, no CVA tenderness, no muscle spasm, normal range of motion Extremities/Musculoskelatal: normal inspection, no calf tenderness, normal capillary refill, + pedal edema Neurologic/Psych: no motor/sensory deficits, alert, normal mood/affect, + disoriented Multifactorial encephalopathy, secondary to organic brain abnormality w/ vascular insufficiency and chronic alcoholism made worse by hepatitis- WAX AND WANES: - Toxicology and serologies- unremarkable - Neurology followed - likely hepatic cause superimposed on 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 - no further intervention -- Head CT w/ no acute intracranial findings, MRI shows no stroke, EEG shows no epileptiform activity - Consult palliative care to discuss future goals w/ patient/family -- Meeting on 01/27 to discuss goals and contraindication of PEG tube- decided on removing NG tube and begin oral feedings; DNR, but NOT comfort measure only- would still like to continue current medical treatment - Ativan 0.5-1 mg q4 hrs PRN - Diet: pureed, thin liquids, aspiration precautions- consulted mortgage branch manager and speech therapy - Treated w/ D5W 08/29 NS + 20 mEq KCL @ 75 ml/hr while NPO Hypoxic hypercarbic respiratory failure- IMPROVED: - ABGs reviewed on 02/14 - Treated w/ BiPAP/O2 supplement- currently requiring 4L O2 NC Hyperammonemia- RESOLVED: Continue Lactulose 30 gm q6 hrs PRN and Xifaxan 550 mg BID Possible aspiration pneumonia: Completed Zosyn 4.5 g IV Q6H for aspiration x1 week Hypokalemia at 2.6 on 02/20: - Replete w/ IV 10 mEq KCL + 40 mEQ KCL PO - Follow PRP and replace PRN Hypomagnesium- RESOLVED : - Treated w/ 1 gm IV x1 on 02/14 and x3 bags on 02/15 - Treat w/ 1 gm IV x2 and begin Mag-Ox supplementation 400 mg BID on 02/16 - Follow mag level Hypophosphatemia- RESOLVED: - Replete w/ Phosphate supplement PO QID - Follow phosphorus level Anemia- STABLE: Follow CBC ETOH Abuse- STABLE: - Librium and detox protocols weaned and completed - Thiamine 100 mg daily, Folic acid 1 gm daily Tobacco Abuse: NicoDerm patch Elevated LFTs with fatty liver, secondary to ischemic hepatitis from VT- STABLE : - Liver US 01/30- unremarkable sonographic assessment of the hepatic and portal vasculature - Abdominal US 02/04- Moderate gallbladder wall thickening, a nonspecific finding. No gallstones. No biliary ductal dilatation. Small amount of ascites and a right pleural effusion. Increased hepatic echogenicity which may reflect fatty infiltration or hepatocellular disease. - LFTs trending down NSTEMI w/ systolic heart failure- STABLE: - Treated w/ IV Heparin drip 01/26-01/29 and IV Lasix - Echo - EF 25% - unable to participate in stress test - ASA 81 mg daily - Continue Coreg 9.375 mg BID - Cardiology consulted HTN: Lisinopril 5 mg daily and Coreg as above Dyslipidemia: - Lipitor 40 mg daily - Lipid panel on 01/26/17- reviewed Hypernatremia with metabolic acidosis- RESOLVED: Nephrology signed off Escherichia Coli UTI- RESOLVED: Treatment of Cipro completed Depression/Anxiety- CANNOT ASSESS: Lexapro 10 mg daily GERD: Lansoprazole 30 mg daily GI Prophylaxis: Prevacid, Maalox PRN, IV Zofran PRN DVT Prophylaxis: Lovenox 40 mg SC daily Code Status: LEVEL V, DNR Total Time Spent: Greater than 30 minutes This includes examination of the patient, discharge planning, medication reconciliation, and communication with other providers. (Yumiko Millan, VENUS) as above --- encephalopathy- seems most likely to be toxic from EtOH + ?a degree of anoxic or just general hypoperfusion from time in [facility]? ---actually much improved over last few days ---ongoing PT/OT/speech and time ---d/w pt and - may be her "new normal" given the circumstances, but also if she has no further neurologic insult and no further EtoH she might show some improvement cardiomyopathy --may all be EtOH cardiotoxicity and MR mediated cardiomyopathy, but have not yet ruled out ischemic - was for left heart cath as next steps in this regard --again as with encephalopathy, d/w pt and , the portion of this that is EtOH mediated should at least stabilize with no further EtOH abuse, but could possibly show improvement liver disease --appearing to be EtOH liver disease baseline w shock liver superimposed. improving. surprisingly no significantly difficult to treat elevations of ammonia - worst was 68 and now down to 20 w xifaxamin alone --> as above d/w pt and with time and abstinence could possibly show improvement. would want ongoing evaluation and treatment, likely would benefit from biopsy at some point for definitive dx and staging of severity. (incidental) hypokalemia - likely from overall nutritionally deficient status - has had 80meq PO today, would obviously repeat in AM for transfer to tertiary for ongoing w/u and treatment at /pt's requests Total Time Spent: Greater than 30 minutes (at least 90mins spent personally in addition to time by Ms Millan) (Kev Lindsay D.Giovani) Discharge Instructions Please refer to the electronic Patient Visit Report (Discharge Instructions) for additional information. (Yumiko Millan, VENUS) Follow-Up Please follow-up with provider within 24-48 hrs Please follow-up/keep all of your subspecialty appointments (Yumiko Millan PA-C) Additional Copies To Zachary Fulton D.O.Int.Med.
[2017-02-20 16:01] VITALS: BP 121/86; PULSE 18; PULSE 94; TEMP 36.7; O2SAT 97
[2017-02-20 16:02] VITALS: BP 121/86; PULSE 94; TEMP 36.7; O2SAT 97
[2017-02-20 19:16] VITALS: BP 121/86; PULSE 94; TEMP 36.7; O2SAT 97
[2017-02-22] MEDS ORDERED: THIAMINE HCL 100 MG TAB PO SCH (09:00)
[2017-03-31] MEDS ORDERED: HYDR25TA5 PO (13:39)
[2017-04-02] MEDS ORDERED: CMD5 PO (10:18)
[2017-04-02] MEDS ORDERED: QSTP PO (10:18)
[2017-04-02] MEDS ORDERED: VNCS250 PO (10:18)
[2017-05-23] MEDS ORDERED: MULTTAB61 (07:07)
[2017-05-23] MEDS ORDERED: DIGO0.052 PO (07:07)
== END 2017-02-20 20:42 | disposition short-term general hospital (02) | DRG 280 ==
LOC: EDBD 11:31 → C.EDD 11:33 → C.2E 14:26 → ENRESERV 15:36 → C.2T 01-28 19:17 → ENRESERV 02-01 10:02 → C.MS2W 02-01 11:03 → C.MED 02-14 13:33 → ENRESERV 02-14 14:12 → C.MS2W 02-16 18:16
PROVIDERS: ADMIT Hospitalist; ATTEND Family Medicine
DX: I21.4 Non-ST elevation (NSTEMI) myocardial infarction (principal); J69.0 Pneumonitis due to inhalation of food and vomit; J96.01 Acute respiratory failure with hypoxia; K72.00 Acute and subacute hepatic failure without coma; G93.41 Metabolic encephalopathy; F10.239 Alcohol dependence with withdrawal, unspecified; N39.0 Urinary tract infection, site not specified; E87.2 Acidosis; I50.42 Chronic combined systolic (congestive) and diastolic (congestive) heart failure; E87.0 Hyperosmolality and hypernatremia; E51.2 Wernicke's encephalopathy; I47.2 Ventricular tachycardia; I42.6 Alcoholic cardiomyopathy; E72.20 Disorder of urea cycle metabolism, unspecified; Z51.5 Encounter for palliative care; B96.20 Unspecified Escherichia coli [E. coli] as the cause of diseases classified elsewhere; E86.0 Dehydration; G31.2 Degeneration of nervous system due to alcohol; K70.40 Alcoholic hepatic failure without coma; K70.11 Alcoholic hepatitis with ascites; E83.42 Hypomagnesemia; I67.2 Cerebral atherosclerosis; E87.6 Hypokalemia; E83.39 Other disorders of phosphorus metabolism; G93.9 Disorder of brain, unspecified; K76.0 Fatty (change of) liver, not elsewhere classified; I25.5 Ischemic cardiomyopathy; D64.9 Anemia, unspecified; K70.31 Alcoholic cirrhosis of liver with ascites; I25.2 Old myocardial infarction; I25.10 Atherosclerotic heart disease of native coronary artery without angina pectoris; I11.0 Hypertensive heart disease with heart failure; E78.5 Hyperlipidemia, unspecified; K21.9 Gastro-esophageal reflux disease without esophagitis; F41.9 Anxiety disorder, unspecified; F32.9 Major depressive disorder, single episode, unspecified; E66.9 Obesity, unspecified; F17.200 Nicotine dependence, unspecified, uncomplicated; Z79.899 Other long term (current) drug therapy; Z66 Do not resuscitate; Z91.81 History of falling; Z68.30 Body mass index [BMI] 30.0-30.9, adult; Z82.49 Family history of ischemic heart disease and other diseases of the circulatory system

== ENCOUNTER → 2017-03-09 | Outpatient (CLI) | payer OTHER ==
[~2017-03-09] MED LIST changes: +ASPCH81 NG; -CHOL100010 PO; +CMD5 PO; +CRG625 PO; -CYAN10005 PO; +DIGO0.052 PO; -DIME50TA2; -FLUT0.15 NAE; +FLV1 NG; +Fibersource 1.2 Cal NG; -HYDR12.55 PO; +HYDR25TA5 PO; +LCTL45 PO; +LSN5 PO; +MGNO400 PO; +MULTLIQ PO; +MULTTAB61; +NICO21DI4 TD; +NUTRMIS PO; +POTTAB2 PO; +QSTP PO; +THM100 PO; +VNCS250 PO; +XFX550 PO
[2017-03-09 08:53] LABS: INR 1.7 (0.9-1.1); PROTHROMBIN TIME (PATIENT) 19.1 SECONDS (9.0-12.0)
--- NOTE | 2017-03-14 14:59 | CODING QUERY NO DIAGNOSIS ---
CQTREATMENT RENDERED WITHOUT A DIAGNOSIS To promote full compliance with coding requirements relating to patient care, physician participation is requested in all cases of network systems operator uncertainty. Please assist us with providing a diagnosis/symptom for the test(s) below: A diagnosis/symptom was not documented on your Order. A valid diagnosis/symptom is required to bill all insurances. Please remember that we are unable to code a diagnosis of rule out, probable, possible, questionable, or suspected. Tests that require a diagnosis: DOS 03/09/17 PROTHROMBIN TIME Provider Signature: Date: Thank you Roma Meyers [employer] Once completed, please kindly fax back to [phone] For questions please call [phone]
== END ==
LOC: C.LABCC 08:17
PROVIDERS: ATTEND Internal Medicine
DX: Z79.01 Long term (current) use of 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 (principal); I48.91 Unspecified atrial fibrillation

== ENCOUNTER → 2017-03-11 | Outpatient (CLI) | payer OTHER | END | disposition home or self-care (01) | LOC: C.LABCC 12:06 | PROVIDERS: ATTEND Internal Medicine | DX: R19.7 Diarrhea, unspecified (principal) ==

== ENCOUNTER → 2017-03-13 | Outpatient (CLI) | payer OTHER ==
[2017-03-13 08:07] LABS: BLOOD UREA NITROGEN 12 mg/dl (7-18); BUN/CREATININE RATIO 23.4 (10-20); CALCIUM 8.6 mg/dl (8.5-10.1); CARBON DIOXIDE 28 mmol/L (21-32); CHLORIDE 105 mmol/L (98-107); CREATININE 0.53 mg/dl (0.60-1.20); GLUCOSE 89 mg/dl (70-99); MAGNESIUM 1.5 mg/dl (1.8-2.4); POTASSIUM 3.6 mmol/L (3.5-5.1); SODIUM 138 mmol/L (136-145)
[2017-03-13 08:08] LABS: INR 2.1 (0.9-1.1); PHOSPHORUS 2.8 mg/dl (2.5-4.9); PROTHROMBIN TIME (PATIENT) 22.7 SECONDS (9.0-12.0)
== END ==
LOC: C.LABCC 07:42
PROVIDERS: ATTEND Internal Medicine
DX: K70.9 Alcoholic liver disease, unspecified (principal); I48.91 Unspecified atrial fibrillation

== ENCOUNTER → 2017-03-16 | Outpatient (CLI) | payer OTHER ==
[2017-03-16 10:37] LABS: INR 3.6 (0.9-1.1); PROTHROMBIN TIME (PATIENT) 40.1 SECONDS (9.0-12.0)
== END ==
LOC: C.LABCC 10:02
PROVIDERS: ATTEND Internal Medicine
DX: I48.91 Unspecified atrial fibrillation (principal)

== ENCOUNTER → 2017-03-21 | Outpatient (CLI) | payer OTHER ==
[2017-03-21 08:34] LABS: INR 3.6 (0.9-1.1); PROTHROMBIN TIME (PATIENT) 40.3 SECONDS (9.0-12.0)
== END ==
LOC: C.LABCC 07:54
PROVIDERS: ATTEND Internal Medicine
DX: E83.42 Hypomagnesemia (principal); I48.91 Unspecified atrial fibrillation

== ENCOUNTER → 2017-03-27 | Outpatient (CLI) | payer OTHER ==
[2017-03-27 11:20] LABS: INR 1.6 (0.9-1.1); PROTHROMBIN TIME (PATIENT) 17.5 SECONDS (9.0-12.0)
== END ==
LOC: C.LABCC 08:52
PROVIDERS: ATTEND Internal Medicine
DX: I48.91 Unspecified atrial fibrillation (principal)

== ENCOUNTER → 2017-03-28 | Outpatient (CLI) | payer OTHER | LOC: C.LABSPEC 17:47 → C.LABCC 17:48 | PROVIDERS: ATTEND Internal Medicine | DX: A04.7 Enterocolitis due to Clostridium difficile (principal) ==

== ENCOUNTER 2017-03-31 12:55 | Inpatient (IN) | payer OTHER ==
[~2017-03-31] VITALS: Ht 160 cm; Wt 65.7 kg
[~2017-03-31 12:55] MED LIST changes: -CMD5 PO; -DIGO0.052 PO; -HYDR25TA5 PO; -MULTTAB61; -QSTP PO; -VNCS250 PO
[2017-03-31] MEDS ORDERED: SODIUM CHLORIDE 0.9% 1000ML 1,000 ML IV STA (13:21)
[2017-03-31] MEDS ORDERED: SODIUM CHLORIDE 0.9% 250ML 250 ML IV STA ×2 (13:21→14:43)
[2017-03-31 13:37] LABS: BASO % 0.4 %; BASO ABS # 0.02 K/uL (0-0.2); EOS % 0.7 %; HEMATOCRIT 30.1 % (37-47); LYMPH % 30.6 %; LYMPH ABS # 1.37 K/uL (1.2-3.4); MEAN CELL VOLUME 93.8 fL (80-100); MEAN CORPUSCULAR HGB CONC 30.9 g/dl (32-36); MEAN PLATELET VOLUME 9.7 fL (7.4-10.4); MONO % 7.4 %; NEUT % 60.9 %; PLATELET COUNT 288 K/uL (130-400); RED BLOOD COUNT 3.21 M/uL (4.2-5.4); WHITE BLOOD COUNT 4.48 K/uL (4.8-10.8)
[2017-03-31] MEDS ORDERED: HYDR25TA5 PO ×2 (13:39)
[2017-03-31 13:46] LABS: INR 2.2 (0.9-1.1); PARTIAL THROMBOPLASTIN RATIO 1.2; PROTHROMBIN TIME (PATIENT) 24.2 SECONDS (9.0-12.0)
--- NOTE | 2017-03-31 13:47 | DIAGNOSTIC IMAGING REPORT ---
SINGLE VIEW CHEST CLINICAL HISTORY: Generalized weakness. FINDINGS: An AP, portable, upright chest radiograph is compared to study dated 02/14/2017. The examination is degraded by portable technique and patient rotation. The cardiomediastinal silhouette is unremarkable heart is enlarged and there is atherosclerotic calcification of the thoracic aorta. There is pulmonary vascular congestion. There is bibasilar consolidation, right greater than left with small pleural effusions. No pneumothorax is seen. The skeletal structures are osteopenic. The bony thorax is grossly intact. Posttraumatic deformity and postoperative change is noted in the right humerus. There is lucency around the buttress plate screws which suggests loosening. IMPRESSION: 1. Cardiomegaly with evidence of mild congestive failure. 2. There are small pleural effusions with bibasilar consolidation, right greater than left. This could represent atelectasis and/or developing pneumonia. Clinical correlation will be required. Electronically signed by: Drew Lazo M.D. 03/31/2017 1:46 PM Dictated Date/Time: 03/31/2017 1:44 PM
[2017-03-31 13:57] LABS: BUN/CREATININE RATIO 26.8 (10-20); CALCIUM 9.1 mg/dl (8.5-10.1); CREATININE 0.77 mg/dl (0.60-1.20); MAGNESIUM 2.1 mg/dl (1.8-2.4)
[2017-03-31 14:01] LABS: ACANTHOCYTES 1+; ANISOCYTOSIS PRESENT; COMPLETE YES; POIKILOCYTOSIS PRESENT
[2017-03-31 14:08] LABS: THYROID STIMULATING HORMONE 2.5 uIu/ml (0.300-4.500)
[2017-03-31] MEDS ORDERED: METOPROLOL TARTRATE 1 MG/ML VIAL IV STA (14:43)
--- NOTE | 2017-03-31 15:17 | EMERGENCY ROOM VISIT NOTE ---
History Report prepared by Lakeisha: Kimber Orr Under the Supervision of: Dr. Florida Barrera M.D. First contact with patient: 13:02 Stated Complaint: AFIB History of Present Illness The patient is a 61 year old female who presents to the Emergency Room with complaints of constant palpitations beginning at 4am this morning. The patient states that she has been feeling weaker than usual over the past couple of days. Last night she was unable to sleep and around 4am she developed palpitations. These persisted throughout the day today. She states that her heart rate was in the 140s-150s. She has also been feeling dizzy. The patient currently resides at [facility]. Staff there called an ambulance. The patient was given Cardizem en route and her symptoms have significantly improved. The patient denies any chest pain. She also denies melena and hematochezia. The patient fell this morning and denies any injury or LOC. Her states that she has been falling frequently. The patient is an alcoholic that has not had any alcohol for the 60 days that she has been living in [facility]. Source of History: patient Onset: 4am today Position: chest Symptom Intensity: HR 140s-150s Quality: other (palpitations) Timing: constant Modifying Factors (Relieving): other (Cardizem) Associated Symptoms: + weakness, No chest pain, No melena, No hematochezia Note: Pt notes dizziness. Review of Systems See HPI for pertinent positives & negatives. A total of 10 systems reviewed and were otherwise negative. Past Medical & Surgical Medical Problems: (1) Acute encephalopathy (2) Acute liver disease (3) Alcohol dependence (4) Alcohol withdrawal (5) GERD (gastroesophageal reflux disease) (6) Hyperlipidemia (7) Hypernatremia (8) NSTEMI (non-ST elevated myocardial infarction) (9) Rapid atrial fibrillation Family History Cancer Hypertension Social History Smoking Status: Former Smoker Alcohol Use: heavy Drug Use: none Marital Status: Housing Status: assisted Occupation Status: employed Current/Historical Medications Scheduled Aspirin (Aspirin Low Strength), 81 MG NG DAILY Atorvastatin (Lipitor), 40 MG PO QAM Carvedilol (Carvedilol), 9.375 MG PO BID Cholestyramine (Cholestyramine Light), 4 GM PO BID@10,22 Escitalopram (Lexapro), 10 MG PO DAILY Folic Acid (Folic Acid), 1 MG NG DAILY@0900 Hydrochlorothiazide (Hydrochlorothiazide), 25 MG PO DAILY Lactulose (Lactulose), 30 GM PO Q6 Lisinopril (Lisinopril), 5 MG PO QAM Magnesium Oxide (Magnesium-Oxide), 400 MG PO BID Multiple Vitamins W/ Minerals (Cerovite Advanced Formula), 15 ML PO QAM Nicotine (Nicoderm Cq), 1 PATCH TD QAM Nutritional Supplements (Boost Pudding), 1 CUP PO TID Omeprazole (Omeprazole), 20 MG PO BID Pot Phosphate Monobasic W/ Sod (Phospha 250 Neutral), 1 TAB PO QID Rifaximin (Xifaxan), 550 MG PO BID Sucralfate (Carafate), 1 GM PO QID Thiamine HCl (Vitamin B-1), 100 MG PO QAM Vancomycin HCl (Vancomycin HCl), 250 MG PO QID Warfarin Sod (Coumadin), 5 MG PO DAILY@16 Scheduled PRN [Fibersource 1.2 Sascha], 1,000 ML NG UD PRN for Tube Feeding Allergies Coded Allergies: No Known Allergies (Verified , 03/31/17) Physical Exam Vital Signs Date Time Temp Pulse Resp B/P (MAP) Pulse Ox O2 Delivery O2 Flow Rate FiO2 03/31/17 15:57 108 26 03/31/17 15:46 92/74 03/31/17 15:42 128 22 111/67 03/31/17 15:42 127 111/67 03/31/17 15:30 /68 03/31/17 15:27 144 24 95 03/31/17 15:27 137 18 99/58 97 Room Air 03/31/17 14:31 116 23 92/80 90 Room Air 03/31/17 13:15 100 03/31/17 13:00 96 Room Air 03/31/17 13:00 36.6 102 20 96/73 96 Room Air 03/31/17 13:00 96 Room Air Physical Exam Vital signs reviewed. General: Chronically ill-appearing 61 year old female, pale, in no significant distress. Generally weak. HEENT: No scleral icterus, PERRLA, neck supple. Atraumatic. Cardiovascular: Tachycardic rate and irregular rhythm, no extra sounds. Pulmonary: Clear to auscultation bilaterally, normal work of breathing. Abdomen: Soft, obese, nontender, nondistended, positive bowel sounds. Rectal: Faintly guaiac positive. Normal rectal mucosa. Musculoskeletal: Atraumatic, no peripheral edema. No significant edema. Neurologic: Patient awake alert and oriented x 3 Skin: Warm, dry, no rash Medical Decision & Procedures ER Provider Diagnostic Interpretation: Radiology results as stated below per my review and radiologist interpretation: SINGLE VIEW CHEST CLINICAL HISTORY: Generalized weakness. FINDINGS: An AP, portable, upright chest radiograph is compared to study dated 02/14/2017. The examination is degraded by portable technique and patient rotation. The cardiomediastinal silhouette is unremarkable heart is enlarged and there is atherosclerotic calcification of the thoracic aorta. There is pulmonary vascular congestion. There is bibasilar consolidation, right greater than left with small pleural effusions. No pneumothorax is seen. The skeletal structures are osteopenic. The bony thorax is grossly intact. Posttraumatic deformity and postoperative change is noted in the right humerus. There is lucency around the buttress plate screws which suggests loosening. IMPRESSION: 1. Cardiomegaly with evidence of mild congestive failure. 2. There are small pleural effusions with bibasilar consolidation, right greater than left. This could represent atelectasis and/or developing pneumonia. Clinical correlation will be required. Electronically signed by: Drew Lazo M.D. 03/31/2017 1:46 PM Dictated Date/Time: 03/31/2017 1:44 PM Laboratory Results Test 03/31/17 13:20 03/31/17 13:30 Activated Partial Thromboplast Time 31.4 SECONDS (21.0-31.0) Partial Thromboplastin Ratio 1.2 Magnesium Level 2.1 mg/dl (1.8-2.4) Total Bilirubin 1.1 mg/dl (0.2-1) Direct Bilirubin 0.5 mg/dl (0-0.2) Aspartate Amino Transf (AST/SGOT) 22 U/L (15-37) Alanine Aminotransferase (ALT/SGPT) 30 U/L (12-78) Alkaline Phosphatase 160 U/L (45-117) Total Protein 7.1 gm/dl (6.4-8.2) Albumin 3.3 gm/dl (3.4-5.0) Lipase 216 U/L (73-393) Thyroid Stimulating Hormone (TSH) 2.500 uIu/ml (0.300-4.500) Bedside Troponin I < 0.030 ng/ml (0-0.045) Laboratory results per my review. Medications Administered Medications (Trade) Dose Ordered Sig/Debbie Route Start Time Stop Time Status Last Admin Dose Admin Sodium Chloride 250 ml @ 999 mls/hr Q16M STAT IV 03/31/17 13:21 03/31/17 13:36 DC 03/31/17 13:45 999 MLS/HR Sodium Chloride 1,000 ml @ 150 mls/hr Q6H40M STAT IV 03/31/17 13:21 03/31/17 17:08 DC 03/31/17 13:45 150 MLS/HR Sodium Chloride 250 ml @ 999 mls/hr Q16M STAT IV 03/31/17 14:43 03/31/17 14:58 DC 03/31/17 14:43 999 MLS/HR Metoprolol Tartrate (Lopressor Iv) 5 mg NOW STAT IV 03/31/17 14:43 03/31/17 14:44 DC 03/31/17 15:42 2.5 MG ECG Indication: palpitations Rate (beats per minute): 110 Rhythm: atrial fibrillation (RVR) Findings: T-wave inversion (Lateral), other (abberently conducted complexes; low voltage) ED Course 1302: Past medical records reviewed. The patient was evaluated in room A10. A complete history and physical examination was performed. 1321: NSS 1000 ml @ 150 mls/hr IV, NSS 250 ml @ 999 mls/hr IV 1432: I reassessed the patient at this time. She is feeling better and resting comfortably. I discussed the results and treatment plan with the patient. I answered all pertaining questions that she had. She expressed understanding and verbalized agreement. 1443: Lopressor 5 mg IV, NSS 250 ml @ 999 mls/hr IV 1521: I spoke with Dr. Jones. We discussed the patients case. The patient will be evaluated by the [facility] for further management. Medical Decision Differential diagnosis: Etiologies such as premature contractions, electrolyte abnormality, cardiac dysrhythmia, thyroid dysfunction, pulmonary embolism, infection, gastrointestinal, as well as others were entertained. This patient was evaluated and appeared to be in no significant distress. Patient appears to be chronically ill and was found to be in a rapid atrial fibrillation. She was hydrated with normal saline solution. Patient was given 5 mg of IV metoprolol. Laboratory work is significant for anemia, and the stool guaiac is positive. Patient is chronically ill was discussed with the hospitalist service for further management. She is aware of the plan and agrees. Medication Reconcilliation Current Medication List: was personally reviewed by me Blood Pressure Screening Patient's blood pressure: Low blood pressure Consults Time Called: [id number] Consulting Physician: Dr. Jones Returned Call: [phone] Jones. We discussed the patients case. The patient will be evaluated by the [facility] for further management. Impression Primary Impression: Rapid atrial fibrillation Additional Impression: Hypotension Scribe Attestation The scribe's documentation has been prepared under my direction and personally reviewed by me in its entirety. I confirm that the note above accurately reflects all work, treatment, procedures, and medical decision making performed by me. Departure Information Dispostion Being Evaluated By Hospitalist Prescriptions Warfarin Sod (Coumadin) 5 Mg Tab 5 MG PO DAILY@16, #30 TAB Prov: Kev Lindsay D.O. 04/02/17 Cholestyramine (Cholestyramine Light) 4 Gm Pack 4 GM PO BID@10,22 for 2 Days Prov: Kev Lindsay D.O. 04/02/17 Vancomycin HCl (Vancomycin HCl) 250 Mg/5 Ml Susp 250 MG PO QID for 5 Days Prov: Kev Lindsay D.O. 04/02/17 Referrals [facility] (PCP) Problem Qualifiers Additional Impression: Hypotension Hypotension type: unspecified hypotension type Qualified Codes: I95.9 - Hypotension, unspecified
[2017-03-31] MEDS ORDERED: ACETAMINOPHEN 325 MG TAB PO PRN (16:00)
[2017-03-31] MEDS ORDERED: POLYETHYLENE (MIRALAX) 17 GM PACK PO PRN (16:00)
[2017-03-31] MEDS ORDERED: ENOXAPARIN 40 MG/0.4 ML SYR SC SCH (16:00)
[2017-03-31] MEDS ORDERED: MAGNESIUM HYDROXIDE SUSP 30 ML UDC PO PRN (16:00)
[2017-03-31] MEDS ORDERED: ONDANSETRON INJ 2 MG/ML 2 ML VIAL IV PRN (16:00)
--- NOTE | 2017-03-31 16:12 | History and Physical ---
History & Physical Date & Time of Service: Mar 31, 2017 at 16:01 Chief Complaint: AFIB Primary Care Physician: Javier Cristobal History of Present Illness Source: patient, hospital records This patient is a pleasant 61-year-old female that presented to the emergency department by ambulance from [facility] with complaints of heart palpitations and dizziness that started at approximately 4 AM this morning. The patient has a history of atrial fibrillation. She denies any chest pain or pressure. She denies any shortness of breath. She denies any recent respiratory illnesses. No cough or fever. She does report getting the "GI bug." She denies any abdominal pain. She does report diarrhea. No vomiting. She denies any blood in her stool. Past Medical/Surgical History History of alcoholism Anemia Hypertension NSTEMI Cardiomyopathy with an EF of 25-30% Hepatitis Depression Anxiety GERD Family History Cancer Hypertension Social History Smoking Status: Former Smoker Smokeless Tobacco Use: No Alcohol Use: none Drug Use: none Marital Status: Housing status: lives with family Occupational Status: employed Immunizations History of Influenza Vaccine: Yes Influenza Vaccine Date: Jun 05, 2009 History of Tetanus Vaccine?: Yes History of Pneumococcal: Yes Pneumococcal Date: Mar 05, 2009 History of Hepatitis B Vaccine: No Multi-Drug Resistant Organisms History of MDRO: No Allergies Coded Allergies: No Known Allergies (Verified , 03/31/17) Home Medications Scheduled Aspirin (Aspirin Low Strength), 81 MG NG DAILY Atorvastatin (Lipitor), 40 MG PO QAM Carvedilol (Carvedilol), 9.375 MG PO BID Escitalopram (Lexapro), 10 MG PO DAILY Folic Acid (Folic Acid), 1 MG NG DAILY@0900 Hydrochlorothiazide (Hydrochlorothiazide), 25 MG PO DAILY Lactulose (Lactulose), 30 GM PO Q6 Lisinopril (Lisinopril), 5 MG PO QAM Magnesium Oxide (Magnesium-Oxide), 400 MG PO BID Multiple Vitamins W/ Minerals (Cerovite Advanced Formula), 15 ML PO QAM Nicotine (Nicoderm Cq), 1 PATCH TD QAM Nutritional Supplements (Boost Pudding), 1 CUP PO TID Omeprazole (Omeprazole), 20 MG PO BID Pot Phosphate Monobasic W/ Sod (Phospha 250 Neutral), 1 TAB PO QID Rifaximin (Xifaxan), 550 MG PO BID Sucralfate (Carafate), 1 GM PO QID Thiamine HCl (Vitamin B-1), 100 MG PO QAM Scheduled PRN [Fibersource 1.2 Sascha], 1,000 ML NG UD PRN for Tube Feeding Review of Systems 10 system review performed and negative unless noted in HPI or below Physical Exam Vital Signs Date Time Temp Pulse Resp B/P (MAP) Pulse Ox O2 Delivery O2 Flow Rate FiO2 03/31/17 15:42 127 111/67 03/31/17 15:27 137 18 99/58 97 Room Air 03/31/17 14:31 116 23 92/80 90 Room Air 03/31/17 13:15 100 03/31/17 13:00 96 Room Air 03/31/17 13:00 36.6 102 20 96/73 96 Room Air 03/31/17 13:00 96 Room Air General Appearance: no apparent distress Head: normocephalic Eyes: EOMI ENT: + pertinent finding (oral mucosa slightly dry. Plaque noted on the tongue.) Neck: no JVD Respiratory/Chest: + pertinent finding (decreased breath sounds at the bases bilaterally. No wheezing or rhonchi.) Cardiovascular: + tachycardia, + irregularly irregular Abdomen/GI: normal bowel sounds, non tender, soft Extremities/Musculoskelatal: no calf tenderness, + pertinent finding (trace pitting edema in the lower extremities without any erythema or tenderness bilaterally.) Neurologic/Psych: no motor/sensory deficits, oriented x 3 Skin: warm/dry Diagnostics Laboratory Results Results Past 24 Hours Test 03/31/17 13:20 03/31/17 13:30 Range/Units White Blood Count 4.48 4.8-10.8 K/uL Red Blood Count 3.21 4.2-5.4 M/uL Hemoglobin 9.3 12.0-16.0 g/dL Hematocrit 30.1 37-47 % Mean Corpuscular Volume 93.8 80-100 fL Mean Corpuscular Hemoglobin 29.0 25-34 pg Mean Corpuscular Hemoglobin Concent 30.9 32-36 g/dl Platelet Count 288 130-400 K/uL Mean Platelet Volume 9.7 7.4-10.4 fL Neutrophils (%) (Auto) 60.9 % Lymphocytes (%) (Auto) 30.6 % Monocytes (%) (Auto) 7.4 % Eosinophils (%) (Auto) 0.7 % Basophils (%) (Auto) 0.4 % Neutrophils # (Auto) 2.73 1.4-6.5 K/uL Lymphocytes # (Auto) 1.37 1.2-3.4 K/uL Monocytes # (Auto) 0.33 0.11-0.59 K/uL Eosinophils # (Auto) 0.03 0-0.5 K/uL Basophils # (Auto) 0.02 0-0.2 K/uL RDW Standard Deviation 72.7 36.4-46.3 fL RDW Coefficient of Variation 21.1 11.5-14.5 % Immature Granulocyte % (Auto) 0.0 % Immature Granulocyte # (Auto) 0.00 0.00-0.02 K/uL Poikilocytosis PRESENT Anisocytosis PRESENT Acanthocytes 1+ Prothrombin Time 24.2 9.0-12.0 SECONDS Prothromb Time International Ratio 2.2 0.9-1.1 Activated Partial Thromboplast Time 31.4 21.0-31.0 SECONDS Partial Thromboplastin Ratio 1.2 Sodium Level 139 136-145 mmol/L Potassium Level 4.0 3.5-5.1 mmol/L Chloride Level 108 98-107 mmol/L Carbon Dioxide Level 24 21-32 mmol/L Anion Gap 7.0 3-11 mmol/L Blood Urea Nitrogen 21 7-18 mg/dl Creatinine 0.77 0.60-1.20 mg/dl Est Creatinine Clear Calc Drug Dose 67.9 ml/min Estimated GFR () 95.2 Estimated GFR (Non- 82.2 BUN/Creatinine Ratio 26.8 10-20 Random Glucose 99 70-99 mg/dl Calcium Level 9.1 8.5-10.1 mg/dl Magnesium Level 2.1 1.8-2.4 mg/dl Total Bilirubin 1.1 0.2-1 mg/dl Direct Bilirubin 0.5 0-0.2 mg/dl Aspartate Amino Transf (AST/SGOT) 22 15-37 U/L Alanine Aminotransferase (ALT/SGPT) 30 12-78 U/L Alkaline Phosphatase 160 45-117 U/L Total Protein 7.1 6.4-8.2 gm/dl Albumin 3.3 3.4-5.0 gm/dl Lipase 216 73-393 U/L Thyroid Stimulating Hormone (TSH) 2.500 0.300-4.500 uIu/ml Bedside Troponin I < 0.030 0-0.045 ng/ml Diagnostic Radiology SINGLE VIEW CHEST CLINICAL HISTORY: Generalized weakness. FINDINGS: An AP, portable, upright chest radiograph is compared to study dated 02/14/2017. The examination is degraded by portable technique and patient rotation. The cardiomediastinal silhouette is unremarkable heart is enlarged and there is atherosclerotic calcification of the thoracic aorta. There is pulmonary vascular congestion. There is bibasilar consolidation, right greater than left with small pleural effusions. No pneumothorax is seen. The skeletal structures are osteopenic. The bony thorax is grossly intact. Posttraumatic deformity and postoperative change is noted in the right humerus. There is lucency around the buttress plate screws which suggests loosening. IMPRESSION: 1. Cardiomegaly with evidence of mild congestive failure. 2. There are small pleural effusions with bibasilar consolidation, right greater than left. This could represent atelectasis and/or developing pneumonia. Clinical correlation will be required. Electronically signed by: Drew Lazo M.D. 03/31/2017 1:46 PM Dictated Date/Time: 03/31/2017 1:44 PM The status of this report is Signed. Draft = Not yet reviewed or approved by Radiologist. Signed = Reviewed and approved by Radiologist. EKG A. fib with RVR Rate [address] depression noted in the lateral leads. No significant change. Impression Assessment and Plan 61-year-old female presenting to the emergency department with complaints of heart palpitations and dizziness. No chest pain or shortness of breath. She was found to be in A. fib with RVR. A fib with RVR-possibly secondary to underlying PNA--> healthcare acquired/ history of aspiration -Admit to telemetry -Digoxin .25 mcg x 1 now...repeat in 3 q prn -Begin broad-spectrum antibiotics of vancomycin, Zosyn and Levaquin -Given hypotension, give 1 dose of albumin x 1 -Patient does have an echocardiogram on 01/2017. No need to repeat. -Given an EF of 25-30%, I will hold off on additional fluids -continue warfarin 5 mg daily History of alcohol abuse/cirrhosis -Continue Xifaxan 550 mg twice daily, thiamine daily, Carafate 1 g QID, pantoprazole 40 mg daily while in house Active C diff -po vanc Coronary artery disease status post STEMI -Continue Coreg 3.125 mg BID if pressure will allow -Continue aspirin 81 mg Depression -Continue Lexapro 10 mg daily Oral candidiasis -Nystatin swish and spit QID DVT prophylaxis -Teds, SCDs CODE STATUS -LEVEL I FULL CODE Attending Addendum: I have physically seen and examined this patient, have directed the physician assistants medical activities, and agree with the H&P as noted above with the following exceptions: NONE The patient is awake, well-developed and adequately nourished, alert and oriented 3, normocephalic and atraumatic, lying in bed and in no acute distress. HEENT--PERRL, EOMI, mucous membranes and oropharynx dry, white plaque on tongue. Neck--supple, no JVD or bruits, thyroid normal, trachea midline, no adenopathy. Heart--irregularly irregular and tachycardic no extra beats, no murmurs, rubs or gallops. Lungs--clear bilaterally but decreased breath sounds at the bases, no respiratory distress, no accessory muscle use. Abdomen--normal bowel sounds and soft, nontender and nondistended, no hernias or masses, no organomegaly. Extremities--no cyanosis, clubbing. Trace bilateral pretibial pitting Edema. There are good distal pulses b/l. Dermatologic--normal skin turgor, normal color, warm and dry, no abnormal lymph nodes, no rash. Neurologic--cranial nerves II through XII grossly intact. Rheumatologic--normal range of motion, nontender, muscles and joints. Psychiatric--normal affect. Assessment and Plan: 1. A. fib with RVR--The patient will be admitted to telemetry for serial cardiac enzymes, cardiac rhythm monitoring and a 2-D echocardiogram with Dopplers. Patient has been given Lopressor 2.5 mg IV in the ED which dropped his pressure. Give digoxin 0.25 mg IV 1 if heart rate is greater than 110, and repeat in 3 hours as needed. Echo from 02/14/2017 showed ejection fraction 25-30%, which will necessitate careful watch of fluids. Continue warfarin 5 mg by mouth daily. Suspect development of RVR secondary to stress of lung infection. 2. Aspiration pneumonia of both lower lobes and right middle lobe-- Place on vancomycin IV with pharmacokinetic monitoring, Zosyn IV and Levaquin IV. 3. C. difficile colitis history-- Place on vancomycin 250 mg by mouth 4 times a day. Level of Care Telemetry Advanced Directives Existing Advance Directive: Yes Existing Living Will: Yes Existing Power of Fagot Heater: Yes Resuscitation Status DO NOT RESUSCITATE VTE Prophylaxis VTE Risk Assessment Done? Y/N: Yes Risk Level: Low Given or contraindicated: T.E.D. Stockings, SCD's
[2017-03-31] MEDS ORDERED: VANCOMYCIN CONSULT ACTIVE PRN (16:45)
[2017-03-31] MEDS ORDERED: PIPERACILL/TAZOBAC CONSULT ACTIVE PRN (17:00)
[2017-03-31] MEDS ORDERED: DIGOXIN IV 250 MCG in SYRINGE 9 ML IV ONE (17:00)
[2017-03-31 17:01] VITALS: Ht 160 cm; Wt 65.7 kg
[2017-03-31] MEDS ORDERED: PIPERACILL/TAZOBAC IV 3.375 GM in DEXTROSE 5% 100ML IV ONE (17:15)
[2017-03-31 17:32] VITALS: BP 82/69; PULSE 104; TEMP 36.5; O2SAT 93
--- NOTE | 2017-03-31 17:50 | Pharmacy Progress Note ---
Pharmacy Antibiotic Consult Date of Service: Mar 31, 2017. Pharmacy Dosing Scope Pharmacy is consulted to initiate vancomycin and Zosyn IV dosing therapy, order appropriate labs and adjust drug dose/frequency. Subjective The patient is a 61 year old female admitted on Mar 31, 2017 at 16:00 with probable HAP as per chest x-ray ([facility] resident). Objective Height (Feet): 5 Height (Inches): 3.00 Weight (Kilograms): 65.300 Lab Results (24hrs): Test 03/31/17 13:20 03/31/17 13:30 White Blood Count 4.48 K/uL (4.8-10.8) Red Blood Count 3.21 M/uL (4.2-5.4) Hemoglobin 9.3 g/dL (12.0-16.0) Hematocrit 30.1 % (37-47) Mean Corpuscular Volume 93.8 fL (80-100) Mean Corpuscular Hemoglobin 29.0 pg (25-34) Mean Corpuscular Hemoglobin Concent 30.9 g/dl (32-36) Platelet Count 288 K/uL (130-400) Mean Platelet Volume 9.7 fL (7.4-10.4) Neutrophils (%) (Auto) 60.9 % Lymphocytes (%) (Auto) 30.6 % Monocytes (%) (Auto) 7.4 % Eosinophils (%) (Auto) 0.7 % Basophils (%) (Auto) 0.4 % Neutrophils # (Auto) 2.73 K/uL (1.4-6.5) Lymphocytes # (Auto) 1.37 K/uL (1.2-3.4) Monocytes # (Auto) 0.33 K/uL (0.11-0.59) Eosinophils # (Auto) 0.03 K/uL (0-0.5) Basophils # (Auto) 0.02 K/uL (0-0.2) RDW Standard Deviation 72.7 fL (36.4-46.3) RDW Coefficient of Variation 21.1 % (11.5-14.5) Immature Granulocyte % (Auto) 0.0 % Immature Granulocyte # (Auto) 0.00 K/uL (0.00-0.02) Poikilocytosis PRESENT Anisocytosis PRESENT Acanthocytes 1+ Prothrombin Time 24.2 SECONDS (9.0-12.0) Prothromb Time International Ratio 2.2 (0.9-1.1) Activated Partial Thromboplast Time 31.4 SECONDS (21.0-31.0) Partial Thromboplastin Ratio 1.2 Sodium Level 139 mmol/L (136-145) Potassium Level 4.0 mmol/L (3.5-5.1) Chloride Level 108 mmol/L (98-107) Carbon Dioxide Level 24 mmol/L (21-32) Anion Gap 7.0 mmol/L (3-11) Blood Urea Nitrogen 21 mg/dl (7-18) Creatinine 0.77 mg/dl (0.60-1.20) Est Creatinine Clear Calc Drug Dose 67.9 ml/min Estimated GFR () 95.2 Estimated GFR (Non- 82.2 BUN/Creatinine Ratio 26.8 (10-20) Random Glucose 99 mg/dl (70-99) Calcium Level 9.1 mg/dl (8.5-10.1) Magnesium Level 2.1 mg/dl (1.8-2.4) Total Bilirubin 1.1 mg/dl (0.2-1) Direct Bilirubin 0.5 mg/dl (0-0.2) Aspartate Amino Transf (AST/SGOT) 22 U/L (15-37) Alanine Aminotransferase (ALT/SGPT) 30 U/L (12-78) Alkaline Phosphatase 160 U/L (45-117) Total Protein 7.1 gm/dl (6.4-8.2) Albumin 3.3 gm/dl (3.4-5.0) Lipase 216 U/L (73-393) Thyroid Stimulating Hormone (TSH) 2.500 uIu/ml (0.300-4.500) Bedside Troponin I < 0.030 ng/ml (0-0.045) Assessment & Plan Vancomycin for institution-acquired PNX, possible aspiration; pleural effusions on x-ray. Loading dose: 1600 mg IV X 1 dose (~25mg/kg) then: 1000 mg IV every 14 hours (~15mg/kg). Goal trough level estimate: between 15 - 20 mcg/mL. Peak and trough or random level has been ordered for: 04/02 prior to 1200 dose. Pt is also ordered Vancomycin 250mg PO qid for c. diff. Zosyn 3.375gm IV q 8 hrs extended infusion for CrCl > 20ml/min. and Levaquin 750mg IV q 24 hrs. Pharmacy will continue to follow and will adjust dose/frequency as necessary. Thank you
[2017-03-31] MEDS ORDERED: VANCOMYCIN INJ 1,600 MG in SODIUM CHLORIDE 0.9% 500ML 500 ML IV SCH (18:00)
[2017-03-31] MEDS ORDERED: ALBUMIN HUMAN 25% 12.5 GM/50 ML VIAL IV ONE (18:00)
[2017-03-31] MEDS: RASPBERRY SYRUP 5 ML UDP PO SCH ×2 (18:02→20:58)
[2017-03-31] MEDS: VANCOMYCIN HCL 250 MG/5 ML SOLN PO SCH ×2 (18:02→20:58)
[2017-03-31] MEDS: NYSTATIN SUSP 500,000 U/5 ML UDC PO SCH ×2 (18:02→20:59)
[2017-03-31] MEDS: LACTULOSE SYRUP 30 GM/45 ML UDP PO SCH (18:03)
[2017-03-31] MEDS: SUCRALFATE 1 GM TAB PO SCH ×2 (18:03→20:58)
[2017-03-31 18:32] VITALS: BP 106/78
[2017-03-31 19:31] VITALS: BP_SYST 115; BP_SYST 126; BP_DIAS 90; BP_DIAS 91; PULSE 102; TEMP 36.6
[2017-03-31] MEDS ORDERED: LEVOFLOXACIN / D5W 750 MG in PREMIXED IN D5W 150 ML IV SCH (20:00)
[2017-03-31] MEDS ORDERED: LEVOFLOXACIN / D5W 750 MG in PREMIXED IN D5W 100 ML IV SCH (20:00)
[2017-03-31] MEDS: CARVEDILOL 3.125 MG TAB PO SCH (20:59)
[2017-03-31] MEDS ORDERED: CARVEDILOL 6.25 MG TAB PO SCH (21:00)
[2017-03-31] MEDS ORDERED: PANTOprazole SOD 40 MG TAB PO SCH (21:00)
[2017-03-31] MEDS: MAGNESIUM OXIDE 400 MG TAB PO SCH (21:02)
[2017-03-31] MEDS: LANSOPRAZOLE SOLUTAB 15 MG NG SCH (21:02)
[2017-03-31] MEDS: RIFAXIMIN TAB 550 MG TAB PO SCH (21:03)
[2017-03-31] MEDS: PIPERACILL/TAZOBAC IV 3.375 GM in DEXTROSE 5% 100ML 100 ML IV SCH (23:47)
[2017-04-01] VITALS (8 sets, daily range): BP systolic 100–138; BP diastolic 71–106; PULSE 103–131; TEMP 36.4–36.8; O2SAT 93–99
[2017-04-01] MEDS: LACTULOSE SYRUP 30 GM/45 ML UDP PO SCH ×4 (00:51→15:52)
[2017-04-01 02:19] LABS: URINE BILIRUBIN NEG (NEG); URINE COLOR YELLOW; URINE NITRITE NEG (NEG); URINE PH 5.5 (4.5-7.5); URINE SPECIFIC GRAVITY 1.025 (1.000-1.030); UROBILINOGEN NEG (NEG)
[2017-04-01 02:20] LABS: MANUAL MICROSCOPIC REQUIRED? NO; REVIEW REQ? NO; URINE APPEARANCE CLOUDY (CLEAR)
[2017-04-01 02:21] LABS: ZZURINE CULT IF INDIC CATH YES
--- NOTE | 2017-04-01 03:08 | Progress Note ---
Progress Note Date of Service Apr 01, 2017. Progress Note Notified at 0300 of positive hemoccult Patient admitted for Afib with RVR; on ASA and Coumadin at home. No evidence of obvious GI bleeding per nursing sign out. Hemodynamically stable vitals and H&H. I have placed hold on ASA and Coumadin. At discretion of primary care team to determine whether anticoagulation should be held pending further work-up or whether to resume anticoagulation
[2017-04-01] MEDS: PIPERACILL/TAZOBAC IV 3.375 GM in DEXTROSE 5% 100ML 100 ML IV SCH ×3 (06:06→21:29)
[2017-04-01 06:24] LABS: BASO % 1.2 %; BASO ABS # 0.05 K/uL (0-0.2); EOS % 0.7 %; HEMATOCRIT 30.5 % (37-47); IG% 0.2 %; LYMPH % 17.6 %; LYMPH ABS # 0.76 K/uL (1.2-3.4); MEAN CORPUSCULAR HGB CONC 30.2 g/dl (32-36); MONO % 10.4 %; NEUT % 69.9 %; PLATELET COUNT 264 K/uL (130-400); RED BLOOD COUNT 3.28 M/uL (4.2-5.4); WHITE BLOOD COUNT 4.31 K/uL (4.8-10.8)
[2017-04-01 06:45] LABS: PROTHROMBIN TIME (PATIENT) 22.1 SECONDS (9.0-12.0)
[2017-04-01 07:01] LABS: ACANTHOCYTES 1+; ANISOCYTOSIS PRESENT; COMPLETE YES; ECHINOCYTES 1+; GIANT PLATELETS 1+
[2017-04-01 07:02] LABS: BUN/CREATININE RATIO 22.7 (10-20); CALCIUM 8.7 mg/dl (8.5-10.1); CREATININE 0.88 mg/dl (0.60-1.20); POTASSIUM 3.6 mmol/L (3.5-5.1)
[2017-04-01] MEDS ORDERED: VANCOMYCIN INJ 1,000 MG in SODIUM CHLORIDE 0.9% 250ML 250 ML IV SCH (08:00)
[2017-04-01] MEDS: RIFAXIMIN TAB 550 MG TAB PO SCH ×2 (08:37→21:26)
[2017-04-01] MEDS: CARVEDILOL 3.125 MG TAB PO SCH ×4 (08:37→21:26)
[2017-04-01] MEDS: LANSOPRAZOLE SOLUTAB 15 MG NG SCH ×2 (08:37→21:26)
[2017-04-01] MEDS: MAGNESIUM OXIDE 400 MG TAB PO SCH ×2 (08:38→21:26)
[2017-04-01] MEDS: ESCITALOPRAM OXALATE 10 MG TAB PO SCH (08:38)
[2017-04-01] MEDS: ATORVASTATIN 40 MG TAB PO SCH (08:38)
[2017-04-01] MEDS: SUCRALFATE 1 GM TAB PO SCH ×4 (08:39→21:26)
[2017-04-01] MEDS: NYSTATIN SUSP 500,000 U/5 ML UDC PO SCH ×4 (08:41→21:26)
[2017-04-01] MEDS: THIAMINE HCL 100 MG TAB PO SCH (08:42)
[2017-04-01] MEDS: VANCOMYCIN HCL 250 MG/5 ML SOLN PO SCH ×4 (08:43→21:29)
[2017-04-01] MEDS: RASPBERRY SYRUP 5 ML UDP PO SCH ×4 (08:44→21:26)
[2017-04-01] MEDS ORDERED: ASPIRIN 81 MG CHEW NG SCH (09:00)
[2017-04-01] MEDS ORDERED: CARVEDILOL 3.125 MG TAB PO ONE (09:45)
--- NOTE | 2017-04-01 10:13 | Progress Note ---
Subjective Date of Service: Apr 01, 2017. Subjective Pt evaluation today including: conversation w/ patient, physical exam, chart review, lab review, review of studies, review of inpatient medication list lots of diarrhea - watery and yellow. notse that she was previously diagnosed w cdiff and is under treatment. nursing notes copious and frequent. pt denies abdominal pain. no sob no cough. does feel generally weak. no palpitations or feeling racing heart Problem List Medical Problems: (1) Acute electrocardiogram changes Status: Acute (2) Dizziness Status: Acute (3) Elevated troponin Status: Acute (4) Hypokalemia Status: Acute (5) Hypomagnesemia Status: Acute (6) Hypotension Status: Acute (7) Rapid atrial fibrillation Status: Acute (8) Weakness Status: Acute Review of Systems all other ROS otherwise negative except for as above Objective Vital Signs Date Time Temp Pulse Resp B/P (MAP) Pulse Ox O2 Delivery O2 Flow Rate FiO2 04/01/17 09:24 36.5 131 20 119/94 (102) 98 3.0 138/106 (117) 04/01/17 04:00 Room Air 04/01/17 00:12 36.4 108 18 125/91 (102) 93 Nasal Cannula 03/31/17 23:59 Room Air 03/31/17 20:00 Room Air 03/31/17 19:31 36.6 102 22 115/91 (99) Room Air 126/90 (102) 03/31/17 18:33 112 03/31/17 18:32 106/78 (87) 03/31/17 17:32 36.5 104 16 82/69 (73) 93 Room Air 03/31/17 17:01 Room Air 03/31/17 16:38 118 18 101/74 94 Room Air 03/31/17 16:06 118 20 96/75 92 Room Air 03/31/17 16:02 93/71 03/31/17 16:01 03/31/17 15:57 108 26 03/31/17 15:46 92/74 03/31/17 15:42 128 22 111/67 03/31/17 15:42 127 111/67 03/31/17 15:30 /68 03/31/17 15:27 144 24 95 03/31/17 15:27 137 18 99/58 97 Room Air 03/31/17 14:31 116 23 92/80 90 Room Air 03/31/17 13:15 100 03/31/17 13:00 96 Room Air 03/31/17 13:00 36.6 102 20 96/73 96 Room Air 03/31/17 13:00 96 Room Air Physical Exam General Appearance: no apparent distress Eyes: EOMI ENT: hearing grossly normal Neck: trachea midline Respiratory/Chest: no respiratory distress, no accessory muscle use Abdomen: non tender, soft Extremities: normal range of motion Neurologic/Psychiatric: legal librarian II-XII nml as tested, alert, normal mood/affect Skin: normal color, warm/dry Laboratory Results Last 24 Hours Test 03/31/17 13:20 03/31/17 13:30 04/01/17 01:50 04/01/17 02:05 White Blood Count 4.48 K/uL Red Blood Count 3.21 M/uL Hemoglobin 9.3 g/dL Hematocrit 30.1 % Mean Corpuscular Volume 93.8 fL Mean Corpuscular Hemoglobin 29.0 pg Mean Corpuscular Hemoglobin Concent 30.9 g/dl Platelet Count 288 K/uL Mean Platelet Volume 9.7 fL Neutrophils (%) (Auto) 60.9 % Lymphocytes (%) (Auto) 30.6 % Monocytes (%) (Auto) 7.4 % Eosinophils (%) (Auto) 0.7 % Basophils (%) (Auto) 0.4 % Neutrophils # (Auto) 2.73 K/uL Lymphocytes # (Auto) 1.37 K/uL Monocytes # (Auto) 0.33 K/uL Eosinophils # (Auto) 0.03 K/uL Basophils # (Auto) 0.02 K/uL RDW Standard Deviation 72.7 fL RDW Coefficient of Variation 21.1 % Immature Granulocyte % (Auto) 0.0 % Immature Granulocyte # (Auto) 0.00 K/uL Poikilocytosis PRESENT Anisocytosis PRESENT Acanthocytes 1+ Prothrombin Time 24.2 SECONDS Prothromb Time International Ratio 2.2 Activated Partial Thromboplast Time 31.4 SECONDS Partial Thromboplastin Ratio 1.2 Sodium Level 139 mmol/L Potassium Level 4.0 mmol/L Chloride Level 108 mmol/L Carbon Dioxide Level 24 mmol/L Anion Gap 7.0 mmol/L Blood Urea Nitrogen 21 mg/dl Creatinine 0.77 mg/dl Est Creatinine Clear Calc Drug Dose 67.9 ml/min Estimated GFR () 95.2 Estimated GFR (Non- 82.2 BUN/Creatinine Ratio 26.8 Random Glucose 99 mg/dl Calcium Level 9.1 mg/dl Magnesium Level 2.1 mg/dl Total Bilirubin 1.1 mg/dl Direct Bilirubin 0.5 mg/dl Aspartate Amino Transf (AST/SGOT) 22 U/L Alanine Aminotransferase (ALT/SGPT) 30 U/L Alkaline Phosphatase 160 U/L Total Protein 7.1 gm/dl Albumin 3.3 gm/dl Lipase 216 U/L Thyroid Stimulating Hormone (TSH) 2.500 uIu/ml Bedside Troponin I < 0.030 ng/ml Stool Occult Blood POSITIVE Urine Color YELLOW Urine Appearance CLOUDY Urine pH 5.5 Urine Specific Rueter 1.025 Urine Protein 1+ Urine Glucose (UA) NEG Urine Ketones NEG Urine Occult Blood TRACE Urine Nitrite NEG Urine Bilirubin NEG Urine Urobilinogen NEG Urine Leukocyte Esterase TRACE Test 04/01/17 05:30 04/01/17 05:52 Sodium Level 143 mmol/L Potassium Level 3.6 mmol/L Chloride Level 112 mmol/L Carbon Dioxide Level 21 mmol/L Anion Gap 10.0 mmol/L Blood Urea Nitrogen 20 mg/dl Creatinine 0.88 mg/dl Est Creatinine Clear Calc Drug Dose 59.5 ml/min Estimated GFR () 81.0 Estimated GFR (Non- 69.9 BUN/Creatinine Ratio 22.7 Random Glucose 92 mg/dl Calcium Level 8.7 mg/dl White Blood Count 4.31 K/uL Red Blood Count 3.28 M/uL Hemoglobin 9.2 g/dL Hematocrit 30.5 % Mean Corpuscular Volume 93.0 fL Mean Corpuscular Hemoglobin 28.0 pg Mean Corpuscular Hemoglobin Concent 30.2 g/dl Platelet Count 264 K/uL Mean Platelet Volume 10.0 fL Neutrophils (%) (Auto) 69.9 % Lymphocytes (%) (Auto) 17.6 % Monocytes (%) (Auto) 10.4 % Eosinophils (%) (Auto) 0.7 % Basophils (%) (Auto) 1.2 % Neutrophils # (Auto) 3.01 K/uL Lymphocytes # (Auto) 0.76 K/uL Monocytes # (Auto) 0.45 K/uL Eosinophils # (Auto) 0.03 K/uL Basophils # (Auto) 0.05 K/uL RDW Standard Deviation 71.8 fL RDW Coefficient of Variation 20.9 % Immature Granulocyte % (Auto) 0.2 % Immature Granulocyte # (Auto) 0.01 K/uL Giant Platelets 1+ Anisocytosis PRESENT Echinocytes 1+ Acanthocytes 1+ Prothrombin Time 22.1 SECONDS Prothromb Time International Ratio 2.0 Assessment and Plan A fib with RVR- appearing provoked -ddx being from Cdiff/volume loss or pneumonia -more likely cdiff -- see below -rate control improving but still too fast - w BP coming up can increase coreg again - for now will use 3.125 QID and titrate back to typical home dosing -if rate still too high can either increase coreg more or re-dose w digoxin -no sx -continue warfarin anticoagulation heme positive stools -believes last colo ~3-4 years ago at [facility] -will ask for report -no gross blood, no signs of hemorrhage -ok to continue warfarin and aspirin - just follow closely anemia -just slightly lower than baseline - continue to follow - as above no evidence of active hemorrhage questionable pneumonia -clinically doesn't seem c/w this but imaging suggests possibly -given Cdiff clearly present and pneumonia questionably not present - will stop pneumonia abx so as not to provoke Cdiff more -follow closely, trend exams, vitals, inflammatory markers -can always resume pneumonia abx if need arises History of alcohol abuse/cirrhosis -Continue Xifaxan 550 mg twice daily, thiamine daily, Carafate 1 g QID, pantoprazole 40 mg daily, holding lactulose since Cdiff producing significant diarrhea Active C diff -po vanco, since diarrhea still copious add cholestyramine Coronary artery disease status post STEMI -Continue Coreg as above -Continue aspirin 81 mg (ok to continue just follow stools as above) Depression -Continue Lexapro 10 mg daily Oral candidiasis -Nystatin swish and spit QID DVT prophylaxis -anticoagulation CODE STATUS -LEVEL I FULL CODE
[2017-04-01] MEDS: CHOLESTYRAMINE LIGHT 4 GM PKT PO SCH ×2 (11:10→23:25)
[2017-04-01] MEDS ORDERED: WARFARIN SOD 5 MG TAB PO SCH (16:00)
[2017-04-01] MEDS: BOOST VANILLA PUDDING CUP PO SCH (17:12)
[2017-04-02] VITALS (10 sets, daily range): BP systolic 99–117; BP diastolic 69–83; PULSE 82–111; TEMP 36.2–36.6; O2SAT 92–99
[2017-04-02] MEDS: PIPERACILL/TAZOBAC IV 3.375 GM in DEXTROSE 5% 100ML 100 ML IV SCH ×2 (05:26→15:21)
[2017-04-02] MEDS: LACTULOSE SYRUP 30 GM/45 ML UDP PO SCH ×4 (05:26→16:00)
[2017-04-02 06:59] LABS: BASO % 0.8 %; BASO ABS # 0.04 K/uL (0-0.2); EOS % 4.2 %; HEMATOCRIT 30.3 % (37-47); IG% 0.2 %; LYMPH % 16.2 %; LYMPH ABS # 0.77 K/uL (1.2-3.4); MEAN CELL VOLUME 93.2 fL (80-100); MEAN PLATELET VOLUME 10.2 fL (7.4-10.4); MONO % 9.1 %; NEUT % 69.5 %; PLATELET COUNT 263 K/uL (130-400); RED BLOOD COUNT 3.25 M/uL (4.2-5.4); WHITE BLOOD COUNT 4.75 K/uL (4.8-10.8)
[2017-04-02 07:10] LABS: INR 2.3 (0.9-1.1); PROTHROMBIN TIME (PATIENT) 25.1 SECONDS (9.0-12.0)
[2017-04-02 07:29] LABS: BUN/CREATININE RATIO 18.3 (10-20); CREATININE 0.95 mg/dl (0.60-1.20); POTASSIUM 3.7 mmol/L (3.5-5.1)
[2017-04-02 07:33] LABS: ANISOCYTOSIS PRESENT; COMPLETE YES; ECHINOCYTES 1+; LARGE PLATELETS 1+
[2017-04-02] MEDS: BOOST VANILLA PUDDING CUP PO SCH ×2 (08:01→16:37)
[2017-04-02] MEDS: NYSTATIN SUSP 500,000 U/5 ML UDC PO SCH ×4 (08:02→20:08)
[2017-04-02] MEDS: RASPBERRY SYRUP 5 ML UDP PO SCH ×4 (08:02→20:07)
[2017-04-02] MEDS: ESCITALOPRAM OXALATE 10 MG TAB PO SCH (08:02)
[2017-04-02] MEDS: VANCOMYCIN HCL 250 MG/5 ML SOLN PO SCH ×4 (08:02→20:07)
[2017-04-02] MEDS: ATORVASTATIN 40 MG TAB PO SCH (08:02)
[2017-04-02] MEDS: CHOLESTYRAMINE LIGHT 4 GM PKT PO SCH ×2 (08:03→22:20)
[2017-04-02] MEDS: THIAMINE HCL 100 MG TAB PO SCH (08:03)
[2017-04-02] MEDS: SUCRALFATE 1 GM TAB PO SCH ×4 (08:03→20:05)
[2017-04-02] MEDS: CARVEDILOL 3.125 MG TAB PO SCH ×4 (08:03→20:05)
[2017-04-02] MEDS: MAGNESIUM OXIDE 400 MG TAB PO SCH ×2 (08:04→20:09)
[2017-04-02] MEDS: LANSOPRAZOLE SOLUTAB 15 MG NG SCH ×2 (08:04→20:09)
[2017-04-02] MEDS: RIFAXIMIN TAB 550 MG TAB PO SCH ×2 (08:04→20:06)
[2017-04-02] MEDS ORDERED: VNCS250 PO ×2 (10:18)
[2017-04-02] MEDS ORDERED: CMD5 PO ×2 (10:18)
[2017-04-02] MEDS ORDERED: QSTP PO ×2 (10:18)
--- NOTE | 2017-04-02 10:24 | Discharge Instructions ---
Discharge Instructions Date of Service Apr 02, 2017. Admission Reason for Admission: Rapid Atrial Fibrillation Discharge Discharge Diagnosis / Problem: afib brought on by diarrhea mediated dehydration /physiologic stress Discharge Goals Goal(s): Diagnostic testing, Therapeutic intervention Activity Recommendations Activity Level: Assistance Required . Additional Information Patient informed of condition: Yes Advance Directives: Yes DNR: Yes Level of Care: Skilled Communicable Disease: No (finishing treatment for Cdiff but actually tested negative this stay) Prognosis: Stable Instructions / Follow-Up Instructions / Follow-Up a) diarrhea -clinically behaving as ongoing but resolving Cdiff. -Cdiff toxin actually negative, but given profuse diarrhea - felt prudent to extend treatment --- Rx written for 5 more days, but ongoing treatment beyond that point based on clinical progress -lactulose should currently be on hold but because this is a temporary hold, it was not discontinued so as to prevent a future possible problem on when to restart -- would resume once diarrhea has slowed further or if any signs of confusion/elevated ammonia were to arise -cholestyramine started with good results in slowing diarrhea - at this point because of the balance between slowing diarrhea and resuming lactulose, wrote for potentially as short as two more days of this; however, again would base further dosing on her clinical progress b) Afib/RVR -rates controlled once diarrhea slowed -continue coreg and coumadin as per prior dosing -next PT/INR tomorrow c) lung findings on CXR -with hindsight appearing much more consistent with tachycardia mediated acute CHF than pneumonia - was initially treated for pneumonia, but once it was clear this was more likely CHF than infection, abx held. -continue to follow clinically, repeat CXR ~4wks, sooner if clinically warranted CBC, BMP, PT/INR tomorrow then as clinically warranted Current Hospital Diet Patient's current hospital diet: AHA Diet (Heart Healthy), Low Fiber Diet Discharge Diet Recommended Diet: AHA Diet (Heart Healthy), Low Fiber Diet Pending Studies Studies pending at discharge: no Laboratory Results Hemoglobin A1c Test 01/26/17 12:35 Range/Units Estimated Average Glucose 140 mg/dl Hemoglobin A1c 6.5 H 4.5-5.6 % Lipid Panel Test 01/26/17 12:35 Range/Units Triglycerides Level 105 0-150 mg/dl Cholesterol Level 152 0-200 mg/dl HDL Cholesterol 69 mg/dl Cholesterol/HDL Ratio 2.2 LDL Cholesterol, Calculated 62 mg/dl Medical Emergencies . Who to Call and When: Medical Emergencies: If at any time you feel your situation is an emergency, please call 911 immediately. . Non-Emergent Contact Non-Emergency issues call your: Primary Care Provider . . "Provider Documentation" section prepared by Kev Lindsay. . Core Measure Problem Core Measures: None
--- NOTE | 2017-04-02 10:34 | Discharge Summary ---
Discharge Summary Date of Service Apr 02, 2017. Discharge Summary Admission Date: Mar 31, 2017 at 16:00 Discharge Date: Apr 02, 2017 [facility]charge Disposition: [facility] facility Principal Diagnosis: afib, RVR; diarrhea Immunizations: Have You Had Influenza Vaccine: Yes Influenza Vaccine Date: Jun 05, 2009 History of Tetanus Vaccine?: Yes History of Pneumococcal: Yes Pneumococcal Date: Mar 05, 2009 History of Hepatitis B Vaccine: No Procedures: [~ rep ct add3]] SINGLE VIEW CHEST CLINICAL HISTORY: Generalized weakness. FINDINGS: An AP, portable, upright chest radiograph is compared to study dated 02/14/2017. The examination is degraded by portable technique and patient rotation. The cardiomediastinal silhouette is unremarkable heart is enlarged and there is atherosclerotic calcification of the thoracic aorta. There is pulmonary vascular congestion. There is bibasilar consolidation, right greater than left with small pleural effusions. No pneumothorax is seen. The skeletal structures are osteopenic. The bony thorax is grossly intact. Posttraumatic deformity and postoperative change is noted in the right humerus. There is lucency around the buttress plate screws which suggests loosening. IMPRESSION: 1. Cardiomegaly with evidence of mild congestive failure. 2. There are small pleural effusions with bibasilar consolidation, right greater than left. This could represent atelectasis and/or developing pneumonia. Clinical correlation will be required. Electronically signed by: Drew Lazo M.D. 03/31/2017 1:46 PM Dictated Date/Time: 03/31/2017 1:44 PM Cdiff toxin negative Last 24 Hours Test 04/02/17 06:20 White Blood Count 4.75 K/uL Red Blood Count 3.25 M/uL Hemoglobin 9.1 g/dL Hematocrit 30.3 % Mean Corpuscular Volume 93.2 fL Mean Corpuscular Hemoglobin 28.0 pg Mean Corpuscular Hemoglobin Concent 30.0 g/dl Platelet Count 263 K/uL Mean Platelet Volume 10.2 fL Neutrophils (%) (Auto) 69.5 % Lymphocytes (%) (Auto) 16.2 % Monocytes (%) (Auto) 9.1 % Eosinophils (%) (Auto) 4.2 % Basophils (%) (Auto) 0.8 % Neutrophils # (Auto) 3.30 K/uL Lymphocytes # (Auto) 0.77 K/uL Monocytes # (Auto) 0.43 K/uL Eosinophils # (Auto) 0.20 K/uL Basophils # (Auto) 0.04 K/uL RDW Standard Deviation 71.3 fL RDW Coefficient of Variation 20.7 % Immature Granulocyte % (Auto) 0.2 % Immature Granulocyte # (Auto) 0.01 K/uL Large Platelets 1+ Anisocytosis PRESENT Echinocytes 1+ Prothrombin Time 25.1 SECONDS Prothromb Time International Ratio 2.3 Sodium Level 141 mmol/L Potassium Level 3.7 mmol/L Chloride Level 110 mmol/L Carbon Dioxide Level 22 mmol/L Anion Gap 9.0 mmol/L Blood Urea Nitrogen 17 mg/dl Creatinine 0.95 mg/dl Est Creatinine Clear Calc Drug Dose 55.2 ml/min Estimated GFR () 73.9 Estimated GFR (Non- 63.7 BUN/Creatinine Ratio 18.3 Random Glucose 108 mg/dl Calcium Level 9.0 mg/dl Medication Reconciliation New Medications: Cholestyramine (Cholestyramine Light) 4 Gm Pack 4 GM PO BID@10,22 for 2 Days Vancomycin HCl (Vancomycin HCl) 250 Mg/5 Ml Susp 250 MG PO QID for 5 Days Warfarin Sod (Coumadin) 5 Mg Tab 5 MG PO DAILY@16, #30 TAB Continued Medications: Aspirin (Aspirin Low Strength) 81 Mg Chew 81 MG NG DAILY for 30 Days Atorvastatin (Lipitor) 40 Mg Tab 40 MG PO QAM Carvedilol (Carvedilol) 6.25 Mg Tab 9.375 MG PO BID for 30 Days, #90 TAB Escitalopram (Lexapro) 10 Mg Tab 10 MG PO DAILY Folic Acid (Folic Acid) 1 Mg Tab 1 MG NG DAILY@0900 for 30 Days, TAB Hydrochlorothiazide (Hydrochlorothiazide) 25 Mg Tab 25 MG PO DAILY, #90 Lactulose (Lactulose) 30 Gm/45 Ml Syrp 30 GM PO Q6 for 30 Days hold when have >2 BM Lisinopril (Lisinopril) 5 Mg Tab 5 MG PO QAM for 30 Days, #30 TAB Magnesium Oxide (Magnesium-Oxide) 400 Mg Tab 400 MG PO BID for 30 Days, #60 TAB Multiple Vitamins W/ Minerals (Cerovite Advanced Formula) 1 Liq Liq 15 ML PO QAM for 30 Days Nicotine (Nicoderm Cq) 21 Mg/24 Hr Dis 1 PATCH TD QAM for 30 Days Nutritional Supplements (Boost Pudding) 1 Mis Mis 1 CUP PO TID for 30 Days Omeprazole (Omeprazole) 20 Mg Tab 20 MG PO BID Pot Phosphate Monobasic W/ Sod (Phospha 250 Neutral) 1 Tab Tab 1 TAB PO QID for 14 Days, #56 TAB Rifaximin (Xifaxan) 550 Mg Tab 550 MG PO BID for 30 Days, #60 TAB Sucralfate (Carafate) 1 Gm Tab 1 GM PO QID for 30 Days, #120 TAB 1 Refill Thiamine HCl (Vitamin B-1) 100 Mg Tab 100 MG PO QAM for 30 Days, #30 TAB [Fibersource 1.2 Sascha] () 1000 ML LIQD 1000 ML NG UD PRN for Tube Feeding for 30 Days Discharge Exam Physical Exam: General Appearance: no apparent distress Eyes: EOMI ENT: hearing grossly normal Neck: trachea midline Respiratory/Chest: lungs clear, normal breath sounds, no respiratory distress, no accessory muscle use Cardiovascular: + irregularly irregular (rate controlled) Abdomen / GI: soft Extremities: normal inspection Neurologic/Psychiatric: steward/stewardess smoke room II-XII nml as tested, alert Skin: normal color, warm/dry Hospital Course A fib with RVR- appearing provoked - initial ddx being from Cdiff/volume loss or pneumonia -- after further review diarrhea/volume loss appears to have been at culprit -rate control improved, safe for return to SNF on home dosing of coreg -no sx -continue warfarin anticoagulation, follow INR closely over short term since initially was given abx for presumed pneumonia heme positive stools -believes last colo ~3-4 years ago at [facility] -asked for report but not available, can be followed as outpt -no gross blood, no signs of hemorrhage -ok to continue warfarin and aspirin - just follow closely, is anemic but see below - appearing stable, repeat CBC tomorrow as outpt for safety anemia -just slightly lower than baseline - continue to follow - as above no evidence of active hemorrhage questionable pneumonia -clinically doesn't seem c/w this but imaging suggests possibly; clinically fits much more w tachycardia mediated CHF; and exam benign, no sx -given Cdiff appearing present clinically (vs just resolving diarrhea since toxin negative) and pneumonia questionable at worst - will stop pneumonia abx so as not to provoke Cdiff more -continue to follow clinically, but would withhold further broad spectrum abx unless clear need arises; repeat CXR ~4wks sooner if clinically warranted History of alcohol abuse/cirrhosis -Continue Xifaxan 550 mg twice daily, thiamine daily, Carafate 1 g QID, pantoprazole 40 mg daily, holding lactulose since significant diarrhea; using cholestyramine briefly - will want to transition off cholestyramine and back to lactulose as diarrhea improves recent C diff -po vanco (toxin negative, clinically behaving more like still has some remnants of active infection), since diarrhea was copious added cholestyramine - this has helped, but of course will be careful balance between stopping this and resuming lactulose Coronary artery disease status post STEMI -Continue Coreg as above -Continue aspirin 81 mg (ok to continue just follow stools as above) Depression -Continue Lexapro 10 mg daily Oral candidiasis -Nystatin swish and spit QID DVT prophylaxis -anticoagulation CODE STATUS -LEVEL I FULL CODE stable for return to SNF Total Time Spent: Less than 30 minutes This includes examination of the patient, discharge planning, medication reconciliation, and communication with other providers. Discharge Instructions Please refer to the electronic Patient Visit Report (Discharge Instructions) for additional information. Additional Copies To Javier Cristobal
[2017-04-02] MEDS ORDERED: VANCOMYCIN TROUGH SCH (11:30)
[2017-04-03] MEDS: LACTULOSE SYRUP 30 GM/45 ML UDP PO SCH ×3 (00:08→12:25)
[2017-04-03 06:36] LABS: BASO % 0.7 %; BASO ABS # 0.03 K/uL (0-0.2); EOS % 6.1 %; HEMATOCRIT 30.4 % (37-47); LYMPH % 23.9 %; LYMPH ABS # 1.09 K/uL (1.2-3.4); MEAN CELL VOLUME 93.8 fL (80-100); MEAN CORPUSCULAR HEMOGLOBIN 28.7 pg (25-34); MEAN CORPUSCULAR HGB CONC 30.6 g/dl (32-36); MEAN PLATELET VOLUME 9.5 fL (7.4-10.4); MONO % 9.6 %; NEUT % 59.7 %; PLATELET COUNT 237 K/uL (130-400); RED BLOOD COUNT 3.24 M/uL (4.2-5.4); WHITE BLOOD COUNT 4.56 K/uL (4.8-10.8)
[2017-04-03 06:43] LABS: INR 1.9 (0.9-1.1); PROTHROMBIN TIME (PATIENT) 20.4 SECONDS (9.0-12.0)
[2017-04-03 06:52] VITALS: BP 118/86; PULSE 82; TEMP 36.4; O2SAT 97
[2017-04-03 07:13] LABS: ANISOCYTOSIS PRESENT; BUN/CREATININE RATIO 20.2 (10-20); CALCIUM 8.9 mg/dl (8.5-10.1); COMPLETE YES; CREATININE 0.79 mg/dl (0.60-1.20); POIKILOCYTOSIS PRESENT; POTASSIUM 3.7 mmol/L (3.5-5.1)
[2017-04-03] MEDS: ATORVASTATIN 40 MG TAB PO SCH (07:46)
[2017-04-03] MEDS: ESCITALOPRAM OXALATE 10 MG TAB PO SCH (07:46)
[2017-04-03] MEDS: RASPBERRY SYRUP 5 ML UDP PO SCH ×2 (07:46→12:25)
[2017-04-03] MEDS: NYSTATIN SUSP 500,000 U/5 ML UDC PO SCH ×2 (07:46→12:25)
[2017-04-03] MEDS: VANCOMYCIN HCL 250 MG/5 ML SOLN PO SCH ×2 (07:46→12:25)
[2017-04-03] MEDS: CARVEDILOL 3.125 MG TAB PO SCH ×2 (07:47→12:25)
[2017-04-03] MEDS: THIAMINE HCL 100 MG TAB PO SCH (07:47)
[2017-04-03] MEDS: LANSOPRAZOLE SOLUTAB 15 MG NG SCH (07:48)
[2017-04-03] MEDS: SUCRALFATE 1 GM TAB PO SCH ×2 (07:48→12:25)
[2017-04-03] MEDS: RIFAXIMIN TAB 550 MG TAB PO SCH (07:48)
[2017-04-03] MEDS: MAGNESIUM OXIDE 400 MG TAB PO SCH (07:48)
[2017-04-03] MEDS: BOOST VANILLA PUDDING CUP PO SCH ×2 (07:49→09:41)
[2017-04-03 08:00] VITALS: O2SAT 97
[2017-04-03] MEDS: CHOLESTYRAMINE LIGHT 4 GM PKT PO SCH (09:39)
--- NOTE | 2017-04-03 10:33 | Hospitalist Progress Note ---
Hospitalist Progress Note Date of Service Apr 03, 2017. (Luli Singh PA-C) Subjective Pt evaluation today including: conversation w/ patient, physical exam, chart review, lab review Pain: None PO Intake: Good Voiding: no voiding problems The patient was seen and examined this morning. Pt reports doing well, she is anticipating discharge to [facility] today. Pts was on the phone when I was in the room with her, all his questions and concerns were answered. He is also in agreement that the pt is being discharged to [facility]. Constitutional: No fever, No chills, No sweats Eyes: No redness, No diplopia ENT: No sore throat Respiratory: No cough, No shortness of breath, No dyspnea on exertion Cardiovascular: No chest pain, No edema, No palpitations Abdomen: No pain, No nausea, No vomiting, No diarrhea, No constipation Musculoskeletal: No joint pain, No muscle pain Female : No dysuria, No hematuria Neurologic: No weakness, No numbness/tingling Endo: No fatigue Skin: No rash, No itch (Luli Singh PA-C) Objective Vital Signs Date Time Temp Pulse Resp B/P (MAP) Pulse Ox O2 Delivery O2 Flow Rate FiO2 04/03/17 08:00 97 Room Air 04/03/17 06:52 36.4 82 20 118/86 (97) 97 Room Air 04/03/17 00:00 Room Air 04/02/17 23:54 36.6 82 18 103/73 (83) 95 Room Air 04/02/17 20:00 Room Air 04/02/17 18:42 36.6 99 20 105/69 (81) 96 Room Air 04/02/17 17:58 36.4 94 20 98 3.0 04/02/17 16:01 98 Room Air 04/02/17 15:13 36.4 94 20 106/70 (82) 99 Room Air 04/02/17 12:11 36.4 111 20 99/74 (82) 93 Room Air 04/02/17 11:19 98 Room Air (Luli Singh PA-C) Physical Exam General Appearance: WD/WN, no apparent distress Eyes: PERRL, EOMI ENT: hearing grossly normal, pharynx normal Neck: supple, no JVD Respiratory/Chest: lungs clear, no respiratory distress, no accessory muscle use Cardiovascular: no JVD, no murmur, + irregularly irregular Abdomen: non tender, soft Extremities: non-tender, normal inspection, no pedal edema Neurologic/Psychiatric: alert, normal mood/affect, oriented x 3 Skin: normal color, warm/dry (Luli Singh PA-C) Laboratory Results Last 24 Hours Test 04/03/17 06:19 White Blood Count 4.56 K/uL Red Blood Count 3.24 M/uL Hemoglobin 9.3 g/dL Hematocrit 30.4 % Mean Corpuscular Volume 93.8 fL Mean Corpuscular Hemoglobin 28.7 pg Mean Corpuscular Hemoglobin Concent 30.6 g/dl Platelet Count 237 K/uL Mean Platelet Volume 9.5 fL Neutrophils (%) (Auto) 59.7 % Lymphocytes (%) (Auto) 23.9 % Monocytes (%) (Auto) 9.6 % Eosinophils (%) (Auto) 6.1 % Basophils (%) (Auto) 0.7 % Neutrophils # (Auto) 2.72 K/uL Lymphocytes # (Auto) 1.09 K/uL Monocytes # (Auto) 0.44 K/uL Eosinophils # (Auto) 0.28 K/uL Basophils # (Auto) 0.03 K/uL RDW Standard Deviation 70.7 fL RDW Coefficient of Variation 20.5 % Immature Granulocyte % (Auto) 0.0 % Immature Granulocyte # (Auto) 0.00 K/uL Poikilocytosis PRESENT Anisocytosis PRESENT Prothrombin Time 20.4 SECONDS Prothromb Time International Ratio 1.9 Sodium Level 140 mmol/L Potassium Level 3.7 mmol/L Chloride Level 110 mmol/L Carbon Dioxide Level 22 mmol/L Anion Gap 8.0 mmol/L Blood Urea Nitrogen 16 mg/dl Creatinine 0.79 mg/dl Est Creatinine Clear Calc Drug Dose 66.4 ml/min Estimated GFR () 92.3 Estimated GFR (Non- 79.7 BUN/Creatinine Ratio 20.2 Random Glucose 96 mg/dl Calcium Level 8.9 mg/dl (Luli Singh PA-C) Assessment and Plan A fib with RVR- appearing provoked -ddx being from Cdiff/volume loss or pneumonia -more likely cdiff -- see below -rate controlled - Transitioned to home dosing - asymptomatic other than occasional flutter (once daily at night) which pt attributes to anxiety. -continue warfarin anticoagulation, follow INR closely over short term since initially was given abx for presumed pneumonia heme positive stools -believes last colon ~3-4 years ago at [facility] -asked for report but not available, can be followed as outpt -no gross blood, no signs of hemorrhage -ok to continue warfarin and aspirin - just follow closely, is anemic but see below - appearing stable, repeat CBC tomorrow as outpt for safety anemia -just slightly lower than baseline - continue to follow - as above no evidence of active hemorrhage questionable pneumonia -clinically doesn't seem c/w this but imaging suggests possibly; clinically fits much more w tachycardia mediated CHF; and exam benign, no sx -given Cdiff appearing present clinically (vs just resolving diarrhea since toxin negative) and pneumonia questionable at worst - will stop pneumonia abx so as not to provoke Cdiff more -continue to follow clinically, but would withhold further broad spectrum abx unless clear need arises; repeat CXR ~4wks sooner if clinically warranted History of alcohol abuse/cirrhosis -Continue Xifaxan 550 mg twice daily, thiamine daily, Carafate 1 g QID, pantoprazole 40 mg daily, holding lactulose since significant diarrhea; using cholestyramine briefly - will want to transition off cholestyramine and back to lactulose as diarrhea improves recent C diff -po vanco (toxin negative, clinically behaving more like still has some remnants of active infection), since diarrhea was copious added cholestyramine - this has helped, but of course will be careful balance between stopping this and resuming lactulose Coronary artery disease status post STEMI -Continue Coreg as above -Continue aspirin 81 mg (ok to continue just follow stools as above) Depression -Continue Lexapro 10 mg daily Oral candidiasis -Nystatin swish and spit QID DVT prophylaxis -anticoagulation CODE STATUS -LEVEL I FULL CODE Disposition: D/c to [facility] today. (Luli Singh, HAYDEEC) I agree with GARRICK assessment and plan and have seen and examined pt myself Pt resting comfortably in bed Vitals and labs reviewed Stable for discharge at this time back to [facility] Will cont vanc for prophylactic tx of c diff at this time (Donato Wayne D.O.)
[2017-04-03 12:35] VITALS: BP 118/86; PULSE 82; TEMP 36.4; O2SAT 97
[2017-05-23] MEDS ORDERED: MULTTAB61 (07:07)
[2017-05-23] MEDS ORDERED: DIGO0.052 PO (07:07)
== END 2017-04-03 15:10 | DRG 309 ==
LOC: EDBD 12:55 → C.EDA 12:58 → C.2E 16:00 → ENRESERV 16:34 → C.4E 04-02 18:12
PROVIDERS: ADMIT Hospitalist; ATTEND Hospitalist
DX: I48.91 Unspecified atrial fibrillation (principal); I42.9 Cardiomyopathy, unspecified; B37.0 Candidal stomatitis; F10.21 Alcohol dependence, in remission; K21.9 Gastro-esophageal reflux disease without esophagitis; E78.5 Hyperlipidemia, unspecified; I25.2 Old myocardial infarction; Z87.891 Personal history of nicotine dependence; I10 Essential (primary) hypertension; F41.8 Other specified anxiety disorders; Z79.82 Long term (current) use of aspirin; K70.30 Alcoholic cirrhosis of liver without ascites; E87.6 Hypokalemia; E83.42 Hypomagnesemia

== ENCOUNTER → 2017-04-04 | Outpatient (CLI) | payer OTHER ==
[~2017-04-04] MED LIST changes: +CMD5 PO; +DIGO0.052 PO; +HYDR25TA5 PO; +MULTTAB61; +QSTP PO; +VNCS250 PO
[2017-04-04 11:44] LABS: BASO % 0.5 %; BASO ABS # 0.03 K/uL (0-0.2); EOS % 4.4 %; HEMATOCRIT 30.8 % (37-47); IG% 0.2 %; LYMPH % 32.8 %; MEAN CELL VOLUME 94.8 fL (80-100); MEAN CORPUSCULAR HEMOGLOBIN 28.9 pg (25-34); MEAN CORPUSCULAR HGB CONC 30.5 g/dl (32-36); MEAN PLATELET VOLUME 10.2 fL (7.4-10.4); MONO % 10.6 %; NEUT % 51.5 %; PLATELET COUNT 278 K/uL (130-400); RED BLOOD COUNT 3.25 M/uL (4.2-5.4); WHITE BLOOD COUNT 5.49 K/uL (4.8-10.8)
[2017-04-04 11:56] LABS: INR 1.4 (0.9-1.1)
[2017-04-04 12:44] LABS: BLOOD UREA NITROGEN 14 mg/dl (7-18); BUN/CREATININE RATIO 22.4 (10-20); CALCIUM 8.8 mg/dl (8.5-10.1); CARBON DIOXIDE 20 mmol/L (21-32); CHLORIDE 110 mmol/L (98-107); CREATININE 0.62 mg/dl (0.60-1.20); GLUCOSE 81 mg/dl (70-99); POTASSIUM 3.9 mmol/L (3.5-5.1); SODIUM 140 mmol/L (136-145)
[2017-04-04 13:13] LABS: ANISOCYTOSIS PRESENT; COMPLETE YES; ECHINOCYTES 2+
== END ==
LOC: C.LABCC 09:36
PROVIDERS: ATTEND Internal Medicine
DX: I48.91 Unspecified atrial fibrillation (principal); D64.89 Other specified anemias; K72.90 Hepatic failure, unspecified without coma

== ENCOUNTER → 2017-04-10 | Outpatient (CLI) | payer OTHER ==
[2017-04-10 10:06] LABS: BASO % 0.6 %; BASO ABS # 0.03 K/uL (0-0.2); COMPLETE YES; EOS % 2.1 %; HEMATOCRIT 29.9 % (37-47); IG% 0.2 %; LYMPH % 32.5 %; LYMPH ABS # 1.55 K/uL (1.2-3.4); MEAN CELL VOLUME 93.7 fL (80-100); MEAN CORPUSCULAR HEMOGLOBIN 28.8 pg (25-34); MEAN CORPUSCULAR HGB CONC 30.8 g/dl (32-36); MEAN PLATELET VOLUME 10.5 fL (7.4-10.4); MONO % 9.4 %; NEUT % 55.2 %; PLATELET COUNT 262 K/uL (130-400); RED BLOOD COUNT 3.19 M/uL (4.2-5.4); WHITE BLOOD COUNT 4.77 K/uL (4.8-10.8)
[2017-04-10 10:13] LABS: ALT/SGPT 27 U/L (12-78); AST/SGOT 23 U/L (15-37); BLOOD UREA NITROGEN 20 mg/dl (7-18); BUN/CREATININE RATIO 32.3 (10-20); CALCIUM 9.1 mg/dl (8.5-10.1); CARBON DIOXIDE 26 mmol/L (21-32); CHLORIDE 104 mmol/L (98-107); CREATININE 0.61 mg/dl (0.60-1.20); GLUCOSE 89 mg/dl (70-99); INR 1.6 (0.9-1.1); MAGNESIUM 1.5 mg/dl (1.8-2.4); POTASSIUM 3.9 mmol/L (3.5-5.1); PROTHROMBIN TIME (PATIENT) 17.8 SECONDS (9.0-12.0); SODIUM 138 mmol/L (136-145)
[2017-04-10 10:15] LABS: ALB/GLOB RATIO 0.8 (0.9-2); ALKALINE PHOSPHATASE 125 U/L (45-117)
== END | disposition home or self-care (01) ==
LOC: C.LABCC 09:20
PROVIDERS: ATTEND Internal Medicine
DX: D64.9 Anemia, unspecified (principal); I48.91 Unspecified atrial fibrillation

== ENCOUNTER → 2017-04-12 | Outpatient (CLI) | payer OTHER | LOC: C.LABCC 17:46 | PROVIDERS: ATTEND Internal Medicine | DX: R19.7 Diarrhea, unspecified (principal) ==

== ENCOUNTER → 2017-04-17 | Outpatient (CLI) | payer OTHER ==
[2017-04-17 10:35] LABS: BASO % 0.9 %; BASO ABS # 0.04 K/uL (0-0.2); HEMATOCRIT 29.2 % (37-47); IG% 0.2 %; LYMPH % 29.7 %; LYMPH ABS # 1.28 K/uL (1.2-3.4); MEAN CELL VOLUME 93.3 fL (80-100); MEAN CORPUSCULAR HEMOGLOBIN 28.4 pg (25-34); MEAN CORPUSCULAR HGB CONC 30.5 g/dl (32-36); MEAN PLATELET VOLUME 10.5 fL (7.4-10.4); MONO % 8.6 %; NEUT % 57.6 %; PLATELET COUNT 229 K/uL (130-400); RED BLOOD COUNT 3.13 M/uL (4.2-5.4); WHITE BLOOD COUNT 4.31 K/uL (4.8-10.8)
[2017-04-17 10:46] LABS: INR 2.7 (0.9-1.1); PROTHROMBIN TIME (PATIENT) 29.9 SECONDS (9.0-12.0)
[2017-04-17 10:47] LABS: FERRITIN 78.1 ng/ml (8.0-388.0); MAGNESIUM 1.7 mg/dl (1.8-2.4)
[2017-04-17 11:07] LABS: COMPLETE YES; ECHINOCYTES 1+; OVALOCYTES 1+
[2017-04-17 11:18] LABS: URINE APPEARANCE CLEAR (CLEAR); URINE BILIRUBIN NEG (NEG); URINE COLOR YELLOW; URINE NITRITE NEG (NEG); URINE PH 7.5 (4.5-7.5); URINE SPECIFIC GRAVITY 1.014 (1.000-1.030); UROBILINOGEN NEG (NEG); ZZURINE CULT IF INDIC CATH NO
[2017-04-17 11:30] LABS: MANUAL MICROSCOPIC REQUIRED? NO; REVIEW REQ? NO
== END ==
LOC: C.LABCC 10:06
PROVIDERS: ATTEND Internal Medicine
DX: E83.42 Hypomagnesemia (principal); I48.91 Unspecified atrial fibrillation; D64.9 Anemia, unspecified

== ENCOUNTER → 2017-04-19 | Outpatient (CLI) | payer OTHER | END | disposition home or self-care (01) | LOC: C.LAB 08:27 | PROVIDERS: ATTEND Nurse Practitioner Adult Health | DX: R41.0 Disorientation, unspecified (principal) ==

== ENCOUNTER → 2017-04-21 | Outpatient (CLI) | payer OTHER ==
[2017-04-21 08:31] LABS: CHOLESTEROL/HDL RATIO 1.9
[2017-04-21 08:40] LABS: INR 3.2 (0.9-1.1); PROTHROMBIN TIME (PATIENT) 35.5 SECONDS (9.0-12.0)
== END ==
LOC: C.LABCC 08:06
PROVIDERS: ATTEND Internal Medicine
DX: E78.00 Pure hypercholesterolemia, unspecified (principal); D64.9 Anemia, unspecified

== ENCOUNTER → 2017-04-25 | Outpatient (CLI) | payer OTHER ==
[2017-04-25 09:03] LABS: HEMATOCRIT 26.8 % (37-47); MEAN CELL VOLUME 90.8 fL (80-100); MEAN CORPUSCULAR HEMOGLOBIN 28.1 pg (25-34); PLATELET COUNT 230 K/uL (130-400); RED BLOOD COUNT 2.95 M/uL (4.2-5.4); WHITE BLOOD COUNT 4.26 K/uL (4.8-10.8)
== END ==
LOC: C.LABCC 08:19
PROVIDERS: ATTEND Internal Medicine
DX: D64.9 Anemia, unspecified (principal); E83.42 Hypomagnesemia

== ENCOUNTER → 2017-04-27 | Outpatient (CLI) | payer OTHER ==
[2017-04-27 08:50] LABS: BASO % 0.8 %; BASO ABS # 0.03 K/uL (0-0.2); EOS % 3.4 %; HEMATOCRIT 27.2 % (37-47); LYMPH % 21.7 %; LYMPH ABS # 0.84 K/uL (1.2-3.4); MEAN CELL VOLUME 90.7 fL (80-100); MEAN CORPUSCULAR HEMOGLOBIN 28.3 pg (25-34); MEAN CORPUSCULAR HGB CONC 31.3 g/dl (32-36); MEAN PLATELET VOLUME 9.6 fL (7.4-10.4); MONO % 8.8 %; NEUT % 65.3 %; PLATELET COUNT 245 K/uL (130-400); WHITE BLOOD COUNT 3.87 K/uL (4.8-10.8)
[2017-04-27 08:56] LABS: BLOOD UREA NITROGEN 15 mg/dl (7-18); BUN/CREATININE RATIO 24.1 (10-20); CALCIUM 9.2 mg/dl (8.5-10.1); CARBON DIOXIDE 27 mmol/L (21-32); CHLORIDE 105 mmol/L (98-107); CREATININE 0.64 mg/dl (0.60-1.20); GLUCOSE 86 mg/dl (70-99); SODIUM 138 mmol/L (136-145)
[2017-04-27 09:45] LABS: ANISOCYTOSIS PRESENT; COMPLETE YES; ECHINOCYTES 1+; POIKILOCYTOSIS PRESENT
== END ==
LOC: C.LABCC 08:25
PROVIDERS: ATTEND Internal Medicine
DX: D64.9 Anemia, unspecified (principal); R63.5 Abnormal weight gain

== ENCOUNTER → 2017-05-02 | Outpatient (CLI) | payer OTHER | END | disposition home or self-care (01) | LOC: C.LAB1850 15:11 | PROVIDERS: ATTEND Physician Assistant | DX: I48.91 Unspecified atrial fibrillation (principal) ==

== ENCOUNTER → 2017-05-02 | Outpatient (CLI) | payer OTHER ==
[2017-05-02 11:53] LABS: INR 1.4 (0.9-1.1); PROTHROMBIN TIME (PATIENT) 15.5 SECONDS (9.0-12.0)
== END ==
LOC: C.LABCC 10:58
PROVIDERS: ATTEND Internal Medicine
DX: I48.91 Unspecified atrial fibrillation (principal)

== ENCOUNTER → 2017-05-03 | Outpatient (CLI) | payer OTHER | END | disposition home or self-care (01) | LOC: C.LABCC 08:00 | PROVIDERS: ATTEND Internal Medicine | DX: E83.42 Hypomagnesemia (principal) ==

== ENCOUNTER → 2017-05-08 | Outpatient (CLI) | payer OTHER ==
[2017-05-08 08:26] LABS: HEMATOCRIT 27.8 % (37-47); MEAN CELL VOLUME 88.3 fL (80-100); MEAN CORPUSCULAR HEMOGLOBIN 27.6 pg (25-34); MEAN CORPUSCULAR HGB CONC 31.3 g/dl (32-36); MEAN PLATELET VOLUME 9.5 fL (7.4-10.4); PLATELET COUNT 316 K/uL (130-400); RED BLOOD COUNT 3.15 M/uL (4.2-5.4); WHITE BLOOD COUNT 4.08 K/uL (4.8-10.8)
[2017-05-08 08:31] LABS: INR 1.6 (0.9-1.1); PROTHROMBIN TIME (PATIENT) 17.7 SECONDS (9.0-12.0)
== END ==
LOC: C.LABCC 07:53
PROVIDERS: ATTEND Internal Medicine
DX: I48.91 Unspecified atrial fibrillation (principal); D64.9 Anemia, unspecified

== ENCOUNTER → 2017-05-12 | Outpatient (CLI) | payer OTHER ==
[~2017-05-12] MED LIST changes: +REGADENOSON 0.4 MG/5 ML SYR ONE
--- NOTE | 2017-05-15 13:46 | MYOCARDIAL PERFUSION SCAN ---
ONE-DAY NUCLEAR MEDICINE TECHNETIUM-99M CARDIOLITE MYOCARDIAL PERFUSION SCAN CLINICAL HISTORY: The patient has a recently diagnosed cardiomyopathy. This stress test is being performed to rule out coronary ischemia as the possible etiology. COMPARISON: None. TECHNIQUE: For the stress portion of the study, 0.4 mg of Lexiscan was injected intravenously as per protocol. For the stress portion of the study, 32.0 mCi of Technetium 99 m Cardiolite IV was injected at 11:45 am on 05/12/2017. Thirty minutes following the injection, imaging of the heart was performed in multiple projection. For the rest portion of the study, 10.4 mCi of Technetium 99 m Cardiolite was injected IV at 10:00 am. One hour following the injection, imaging of the heart was performed in the same projections. The patient did not experience chest discomfort. Baseline EKG noted atrial fibrillation with an old septal myocardial infarction and left ventricular hypertrophy with repolarization changes. This baseline abnormality makes ECG interpretation with stress nondiagnostic. The patient's blood pressure remained stable. Following the study, patient was hemodynamically stable without complaints. FINDINGS: The short axis, vertical long axis, horizontal long axis images were reviewed in detail. There is evidence of decreased tracer uptake with stress when compared with rest images. This is most pronounced in the apex. This suggests multivessel coronary artery disease. The left ventricle demonstrates global hypokinesis and evidence of apical akinesis. Left ventricular ejection fraction is 34%. IMPRESSION: 1. Scintigraphic evidence of multivessel coronary artery disease. 2. No Lexiscan induced chest pain. 3. ECG interpretation nondiagnostic. 4. Decreased left ventricular ejection fraction of 34% with global hypokinesis and apical akinesis.
== END | disposition home or self-care (01) ==
LOC: C.NUCL 09:30
PROVIDERS: ATTEND Physician Assistant
DX: I42.9 Cardiomyopathy, unspecified (principal)

== ENCOUNTER → 2017-05-15 | Outpatient (CLI) | payer OTHER ==
[~2017-05-15] MED LIST changes: -REGADENOSON 0.4 MG/5 ML SYR ONE
[2017-05-15 09:59] LABS: INR 2.3 (0.9-1.1); PROTHROMBIN TIME (PATIENT) 25.1 SECONDS (9.0-12.0)
== END ==
LOC: C.LABCC 09:31
PROVIDERS: ATTEND Internal Medicine
DX: I48.91 Unspecified atrial fibrillation (principal)

== ENCOUNTER → 2017-05-17 | Outpatient (CLI) | payer OTHER ==
[2017-05-17 08:31] LABS: BASO % 1.3 %; BASO ABS # 0.05 K/uL (0-0.2); COMPLETE YES; EOS % 3.5 %; IG% 0.3 %; LYMPH % 34.6 %; LYMPH ABS # 1.38 K/uL (1.2-3.4); MEAN CELL VOLUME 88.6 fL (80-100); MEAN CORPUSCULAR HEMOGLOBIN 26.3 pg (25-34); MEAN CORPUSCULAR HGB CONC 29.7 g/dl (32-36); MEAN PLATELET VOLUME 9.4 fL (7.4-10.4); MONO % 10.8 %; NEUT % 49.5 %; PLATELET COUNT 291 K/uL (130-400); RED BLOOD COUNT 3.61 M/uL (4.2-5.4); WHITE BLOOD COUNT 3.99 K/uL (4.8-10.8)
[2017-05-17 08:40] LABS: INR 2.2 (0.9-1.1); PARTIAL THROMBOPLASTIN RATIO 1.4; PROTHROMBIN TIME (PATIENT) 24.3 SECONDS (9.0-12.0)
[2017-05-17 08:42] LABS: BLOOD UREA NITROGEN 21 mg/dl (7-18); BUN/CREATININE RATIO 29.3 (10-20); CALCIUM 9.4 mg/dl (8.5-10.1); CARBON DIOXIDE 26 mmol/L (21-32); CHLORIDE 107 mmol/L (98-107); GLUCOSE 84 mg/dl (70-99); POTASSIUM 3.8 mmol/L (3.5-5.1); SODIUM 141 mmol/L (136-145)
== END ==
LOC: C.LABCC 08:22
PROVIDERS: ATTEND Internal Medicine
DX: Z01.818 Encounter for other preprocedural examination (principal)

== ENCOUNTER → 2017-05-23 | Day surgery (SDC) | payer OTHER ==
[~2017-05-23] VITALS: Ht 160 cm; Wt 64.0 kg
[~2017-05-23] MED LIST changes: +ACETAMINOPHEN 325 MG TAB PO PRN; +ATROPINE SULFATE 0.1 MG/ML 5ML SYR IV PRN; +FENTANYL CITRATE INJ 50 MCG/1 ML 2 ML VIAL ONE; +HEPARIN SOD (PORCINE) 1000 UNIT/ML 10 ML VIAL ONE; +MIDAZOLAM HCL 1 MG/ML 2ML VIAL ONE; +NITROGLYCERIN/D5W 100MCG/ML 20ML SYR ONE; +NiCARDipine HCL INJ 2.5 MG/ML 10 ML AMP ONE; +SODIUM CHLORIDE 0.9% 1000ML 1,000 ML IV SCH; +SODIUM CHLORIDE 0.9% 1000ML 250 ML IV PRN
[2017-05-23 07:26] VITALS: BP 127/93; PULSE 80; TEMP 36.5; O2SAT 98; Ht 160 cm; Wt 64.0 kg
--- NOTE | 2017-05-23 08:25 | History & Physical Bridge Note ---
H&P Re-Evaluation Bridge Note: I have examined the patient, reviewed the History & Physical and in the interval since the performance of the History & Physical I have noted the following changes of clinical significance: No changes noted. Procedure,risks, benefits,alternatives of cardiac cath /coronary intervention discussed with patient. She consents to the procedure. Further recommendations and plans based on results of procedure.
--- NOTE | 2017-05-23 08:27 | Procedure Note ---
Pre-Mod Sedation Assessment General Date of Moderate Sedation: May 23, 2017. Vital Signs: Vital Signs Past 12 Hours Date Time Temp Pulse Resp B/P (MAP) Pulse Ox O2 Delivery O2 Flow Rate FiO2 05/23/17 07:26 36.5 80 16 127/93 98 Room Air Review Cardiovascular: no JVD, no murmur, normal peripheral pulses, + pertinent finding (irregular rhythm) Abdomen: normal bowel sounds, non tender, soft Lungs: lungs clear Pre-Sedation Airway Assessment Oral Cavity: WNL Able to Visualize Vocal Cords: No Short Thick Neck: No Hx of Sleep Apnea: No Smoking Status: Former Smoker Mallampati Classification: Class III Procedure Planning Contraindications-for Mod Sed: None Yes Notes The planned sedation has been discussed with the patient and consent obtained. I have identified the patient, determined the appropriateness of sedation and have assessed the patient immediately prior to the procedure. All medicine(s) and interventions are by my order.
--- NOTE | 2017-05-23 10:08 | Cardiac Catheterization ---
Procedure Note Procedure Date May 23, 2017. 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 Hdz Independent Contractor(s) Chastity Russell RTR Estimated Blood Loss 15 ml Medication(s) Fentanyl, Heparin, Nicardipine, Versed, Lidocaine 1% Summary of Findings Indications: Cardiomyopathy, pharmacologic stress test positive ( c/w 3 V CAD) Catheterization site: 6 Fr Slender glide sheath right radial artery Hemostasis: Terumo TR band Complications: none Findings: Extensive RCA and mild LCA calcifications, aortic root calcifications. Right dominant circulation. Very large caliber LM , large caliber LAD, L CX. LAD gave rise to medium caliber D1 and small caliber D2. L CX gave rise to small caliber OM1 and medium caliber OM2. 10% mid LAD. RCA large caliber. 20% proximal, 30% mid,30% distal RCA stenoses. Small - medium caliber PDA and 2 long small caliber right posterolateral arteries. LV angiography from 30 degree TREVINO projection ( hand injection) with severe global hypokinesis. LVEF 25%. No mitral regurgitation. Plan: Medical therapy for cardiomyopathy. Refer for consideration of ICD for primary SCD prevention. Hemodynamics Rest Ao: 95/52/70 mm Hg Final Ao: 86/53/67 mm Hg LV: 96/12 mm Hg Recommendations Medical therapy and/or Counseling Specimens None Radiation Exposure (mGy) 1000 Contrast (mls) 70 ml Visipaque Fluids (cc crystalloids) 110 Drains none Anesthesia IV Versed,fentanyl. Lidocaine 1% local Procedural Complication(s) None Disposition Clerical Support Holding/Recovery [facility] Data Cardiac Status Clinical evaluation leading to the procedure CAD Presntation: Positive Stress Test Anginal Classification: No symptoms Heart Failure: NYHA Class: CCS II Cardiogenic Shock w/in 24Hrs: No Cardiac Arrest w/in 24Hrs: No Imaging studies past 6 months: Yes Stress studies past 6 months: Yes Standard Exercise Stress Test: No Stress Echocardiogram: No Stress Testing w/SPECT MPI: Yes - Positive, Risk/Extent of Ischemia (High) Cardiac CTA: No Coronary Anatomy Dominant: Right Left Main (% Stenosis): Normal LAD (% Stenosis): Mid (10) D1 (% Stenosis): Normal D2 (% Stenosis): Normal Circumflex (% Stenosis): Normal OM1 (% Stenosis): Normal OM2 (% Stenosis): Normal RCA (% Stenosis): Proximal (20), Mid (30), Distal (30) R PDA (% Stenosis): Normal R PL1 (% Stenosis): Normal R PL2 (% Stenosis): Normal Left Ventricular Angiography EF (%): 25 Wall Motion: Inferior (Hypokinetic), Apical (Hypokinetic), Anterior ( Hypokinetic) Mitral Regurgitation: None Diagnostic Physician's Name: Corby Hdz M.D. Status: Elective Closure Device Percutaneous Entry Location: Radial Closure Device: Radial Band Recommendations: Medical therapy and/or Counseling
--- NOTE | 2017-05-23 10:10 | Procedure Note ---
Post-Mod Sedation Assessment General Date of Moderate Sedation May 23, 2017. Vital Signs: Vital Signs Past 12 Hours Date Time Temp Pulse Resp B/P (MAP) Pulse Ox O2 Delivery O2 Flow Rate FiO2 05/23/17 09:30 87 16 95/52 (66) 98 Room Air 05/23/17 07:26 36.5 80 16 127/93 98 Room Air Review - Discharge Criteria Vital Signs Stable: Yes Alert/Oriented/Conversant: Yes Returned to Baseline Mental St: Yes Nausea Absent/Minimal: Yes Pain/Discomfort/Absent/Minimal: Yes Normal/Baseline Respirations: Yes Active Bleeding?: No Pt Received D/C Instructions: Yes Prescriptions Given: None Specific Proced. D/C Criteria Distal Pulses Present (Cardiac: Yes Groin site assessed-Card Cath: N/A Voided Prior To Discharge: Yes Discharged Patients Adult Escort/Transportation: Yes
--- NOTE | 2017-05-23 10:17 | Discharge Instructions ---
Discharge Instructions Procedure Procedure Date: May 23, 2017. Reason for Visit: Abnormal Nuc Test Zoda To Do. Discharge Discharge Date: May 23, 2017. Discharge Diagnosis: Cardiomyopathy Cardiac catheterization Last Recorded Wt (Kilograms): 64 Medications Restart Stopped Medication(s): restart warfarin Anesthesia Post Anesthesia Instructions: If you have had General Anesthesia or IV Sedation: * Do not drive today. * Resume driving when surgeon permits. * Do not make important decisions or sign legal documents today. * Call surgeon for: 1. Temperature elevations greater than 101 degrees F. 2. Uncontrollable pain. 3. Excessive bleeding. 4. Persistent nausea and vomiting. 5. Medication intolerance (nausea, vomiting or rash). * For nausea and vomiting use only clear liquids such as: tea, soda, bouillon until nausea subsides, then gradually increase diet as tolerated. * If you have any concerns or questions, call your surgeon's office. If physician is unavailable and it is an emergency, call 911 or go to the nearest emergency room. Instructions Activity Recommendations: lifting limitation (no lifting over 2 pounds for 48 hrs), driving or machine use limit (no driving for 48 hr), shower/bathe limit ( Can shower on 05/24/17) Recommended Home Diet: low sodium Allergies: Coded Allergies: No Known Allergies (Verified , 03/31/17) Follow Up Additional Instructions: Call Dr. Hdz's office at [phone] for any questions or problems Follow-up with: Follow up in cardiology clinic [facility] . [facility] Recommendations: Call your doctor if: * Temperature above 101 degrees * Pain not relieved by pain medicine ordered * There is increased drainage or redness from any incision * You have any unanswered questions or concerns. Your Doctors Instructions noted above were prepared by provider Corby Hdz. Patient Signature Section: Patient Instructions Signature Page Savanna Mercado Patient (or Guardian) Signature/Date: I have read and understand the instructions given to me by my caregivers. Caregiver/RN/Doctor Signature/Date: The above-named patient and/or guardian has received patient instructions on this date. + Original Patient Signature Page (only) stays with chart. Please make copy for patient.
[2017-05-23 11:45] VITALS: O2SAT 95
[2017-05-23 11:58] VITALS: BP 104/74; PULSE 88
== END | disposition home or self-care (01) ==
LOC: C.CATH 06:58
PROVIDERS: ATTEND Internal Medicine Cardiovascular Disease
DX: I42.9 Cardiomyopathy, unspecified (principal); I95.9 Hypotension, unspecified; I48.91 Unspecified atrial fibrillation; E78.5 Hyperlipidemia, unspecified; I08.1 Rheumatic disorders of both mitral and tricuspid valves; K21.9 Gastro-esophageal reflux disease without esophagitis; F32.9 Major depressive disorder, single episode, unspecified; R26.81 Unsteadiness on feet; F17.200 Nicotine dependence, unspecified, uncomplicated; I25.2 Old myocardial infarction; Z79.01 Long term (current) use of 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; Z80.0 Family history of malignant neoplasm of digestive organs; Z83.49 Family history of other endocrine, nutritional and metabolic diseases

== ENCOUNTER → 2017-05-31 | Outpatient (CLI) | payer OTHER ==
[~2017-05-31] MED LIST changes: -ACETAMINOPHEN 325 MG TAB PO PRN; -ATROPINE SULFATE 0.1 MG/ML 5ML SYR IV PRN; -FENTANYL CITRATE INJ 50 MCG/1 ML 2 ML VIAL ONE; -HEPARIN SOD (PORCINE) 1000 UNIT/ML 10 ML VIAL ONE; -HYDR25TA5 PO; -LCTL45 PO; -LSN5 PO; -MIDAZOLAM HCL 1 MG/ML 2ML VIAL ONE; -NITROGLYCERIN/D5W 100MCG/ML 20ML SYR ONE; -NiCARDipine HCL INJ 2.5 MG/ML 10 ML AMP ONE; -QSTP PO; -SODIUM CHLORIDE 0.9% 1000ML 1,000 ML IV SCH; -SODIUM CHLORIDE 0.9% 1000ML 250 ML IV PRN; -VNCS250 PO
--- NOTE | 2017-05-31 08:43 | DIAGNOSTIC IMAGING REPORT ---
CT LUNG SCREENING, LOW DOSE WITH COMPUTER-AIDED DETECTION (CAD) CLINICAL HISTORY: Smoking history. COMPARISON STUDY: Chest 03/31/2017. CT DOSE: 67.94 mGycm TECHNIQUE: Low-dose helical CT was acquired without intravenous contrast from lung apices to bases and reconstructed at 2.5 mm every 2 mm. CAD was utilized for this study. A dose lowering technique was utilized adhering to the principles of ALARA. FINDINGS: No fractures within the visualized osseous structures. Subcentimeter mediastinal lymph nodes do not meet CT criteria for pathologic involvement. Mild calcified plaque within the aortic arch. The ascending thoracic aorta measures up to 4 cm in diameter. The heart is mildly enlarged. Moderate calcified plaque within the coronary arteries. No pleural effusions. No pneumothorax. The visualized unenhanced liver, spleen, and right adrenal gland are unremarkable. A 1.5 cm left adrenal gland nodule consistent with a benign adenoma. Mild paraseptal emphysema. Faint ground glass densities at the right lung base may be due to mild dependent change or a resolving pneumonitis. Focal area of air trapping within the right lung base. Linear density within the lingula consistent with subsegmental atelectasis or scarring. Nodular densities at the lung apices likely represents scarring. IMPRESSION: 1. No suspicious pulmonary nodules. 2. The ascending thoracic aorta measures up to 4 cm diameter. 3. Mild cardiomegaly. 4. Moderate calcified plaque within the coronary arteries. 5. Faint groundglass densities at the right lung base may be due to mild dependent change or a resolving pneumonitis. CAD FINDINGS: Overall Lung RADS Category: 1 Lung RADS Management Recommendation: Lung-RADS 1: Continue annual screening in 12 months. Lung RADS Follow Up Date: 2018-05-31 Lung RADS Nodule ID: Electronically signed by: Obi Parada M.D. 05/31/2017 8:42 AM Dictated Date/Time: 05/31/2017 8:34 AM
== END | disposition home or self-care (01) ==
LOC: C.CTS 08:11
PROVIDERS: ATTEND Internal Medicine
DX: Z12.2 Encounter for screening for malignant neoplasm of respiratory organs (principal)

== ENCOUNTER → 2017-06-08 | Outpatient (CLI) | payer OTHER | LOC: C.LABCC 07:43 | PROVIDERS: ATTEND Internal Medicine | DX: I48.91 Unspecified atrial fibrillation (principal) ==

== ENCOUNTER → 2017-06-12 | Outpatient (CLI) | payer OTHER ==
[2017-06-12 10:08] LABS: INR 1.3 (0.9-1.1); PROTHROMBIN TIME (PATIENT) 13.9 SECONDS (9.0-12.0)
== END ==
LOC: C.LABCC 09:31
PROVIDERS: ATTEND Internal Medicine
DX: I48.91 Unspecified atrial fibrillation (principal)

== ENCOUNTER → 2017-06-15 | Outpatient (CLI) | payer OTHER ==
[2017-06-15 09:06] LABS: INR 1.7 (0.9-1.1); PROTHROMBIN TIME (PATIENT) 19.1 SECONDS (9.0-12.0)
== END ==
LOC: C.LABCC 08:47
PROVIDERS: ATTEND Internal Medicine
DX: I48.91 Unspecified atrial fibrillation (principal)

== ENCOUNTER → 2017-06-19 | Outpatient (CLI) | payer OTHER ==
[2017-06-19 09:15] LABS: INR 3.7 (0.9-1.1); PROTHROMBIN TIME (PATIENT) 42.1 SECONDS (9.0-12.0)
== END ==
LOC: C.LABCC 08:24
PROVIDERS: ATTEND Internal Medicine
DX: I48.91 Unspecified atrial fibrillation (principal)

== ENCOUNTER → 2017-07-06 | Outpatient (CLI) | payer OTHER ==
[2017-07-06 08:44] LABS: INR 1.8 (0.9-1.1); PROTHROMBIN TIME (PATIENT) 20.2 SECONDS (9.0-12.0)
== END ==
LOC: C.LABCC 08:00
PROVIDERS: ATTEND Internal Medicine
DX: I48.91 Unspecified atrial fibrillation (principal)

== ENCOUNTER → 2017-07-12 | Outpatient (CLI) | payer OTHER ==
[2017-07-12 09:36] LABS: INR 4.1 (0.9-1.1); PROTHROMBIN TIME (PATIENT) 46.8 SECONDS (9.0-12.0)
== END ==
LOC: C.LABCC 09:10
PROVIDERS: ATTEND Internal Medicine
DX: I48.91 Unspecified atrial fibrillation (principal)

== ENCOUNTER → 2017-08-04 | Outpatient (CLI) | payer OTHER ==
--- NOTE | 2017-08-04 10:00 | DIAGNOSTIC IMAGING REPORT ---
CHEST 2 VIEWS ROUTINE CLINICAL HISTORY: R05 [id number] dyspnea COMPARISON STUDY: No previous studies for comparison. FINDINGS: The bones soft tissues and hemidiaphragms are normal. The cardiomediastinal silhouette is mildly enlarged. The lungs are clear. The pulmonary vasculature is normal. Mild emphysematous change. Old compression deformity of a midthoracic vertebral body unchanged from the prior CT study dated 05/31/2017. Mild emphysematous change. IMPRESSION: Mild cardiomegaly. Mild emphysematous change. No acute process. The above report was generated using voice recognition software. It may contain grammatical, syntax or spelling errors. Electronically signed by: Sundar Benson M.D. 08/04/2017 9:58 AM Dictated Date/Time: 08/04/2017 9:57 AM
[2017-08-04 13:43] LABS: INR 1.7 (0.9-1.1); PARTIAL THROMBOPLASTIN RATIO 1.3; PROTHROMBIN TIME (PATIENT) 17.9 SECONDS (9.0-12.0)
[2017-08-04 13:44] LABS: HEMATOCRIT 27.3 % (37-47); MEAN CELL VOLUME 83.2 fL (80-100); MEAN CORPUSCULAR HEMOGLOBIN 24.7 pg (25-34); MEAN CORPUSCULAR HGB CONC 29.7 g/dl (32-36); MEAN PLATELET VOLUME 9.4 fL (7.4-10.4); PLATELET COUNT 230 K/uL (130-400); RED BLOOD COUNT 3.28 M/uL (4.2-5.4); WHITE BLOOD COUNT 4.69 K/uL (4.8-10.8)
[2017-08-04 14:04] LABS: ALT/SGPT 26 U/L (12-78); AST/SGOT 20 U/L (15-37); BLOOD UREA NITROGEN 15 mg/dl (7-18); BUN/CREATININE RATIO 19.4 (10-20); CALCIUM 8.4 mg/dl (8.5-10.1); CARBON DIOXIDE 24 mmol/L (21-32); CHLORIDE 108 mmol/L (98-107); CREATININE 0.76 mg/dl (0.60-1.20); GLUCOSE 91 mg/dl (70-99); POTASSIUM 3.7 mmol/L (3.5-5.1); SODIUM 139 mmol/L (136-145)
[2017-08-04 14:06] LABS: ALB/GLOB RATIO 0.9 (0.9-2); ALKALINE PHOSPHATASE 175 U/L (45-117)
== END | disposition home or self-care (01) ==
LOC: C.RADBC 09:13
PROVIDERS: ATTEND Physician Assistant Medical
DX: Z01.818 Encounter for other preprocedural examination (principal); K70.9 Alcoholic liver disease, unspecified; R05 Cough; I51.7 Cardiomegaly

== ENCOUNTER → 2017-08-11 | Outpatient (CLI) | payer OTHER ==
[2017-08-11 17:09] LABS: PARTIAL THROMBOPLASTIN RATIO 1.3; PROTHROMBIN TIME (PATIENT) 63.2 SECONDS (9.0-12.0)
[2017-08-11 17:11] LABS: BLOOD UREA NITROGEN 19 mg/dl (7-18); BUN/CREATININE RATIO 23.2 (10-20); CALCIUM 8.3 mg/dl (8.5-10.1); CARBON DIOXIDE 24 mmol/L (21-32); CHLORIDE 106 mmol/L (98-107); CREATININE 0.82 mg/dl (0.60-1.20); GLUCOSE 88 mg/dl (70-99); HEMATOCRIT 27.4 % (37-47); MEAN CELL VOLUME 82.5 fL (80-100); MEAN CORPUSCULAR HEMOGLOBIN 25.3 pg (25-34); MEAN CORPUSCULAR HGB CONC 30.7 g/dl (32-36); MEAN PLATELET VOLUME 9.4 fL (7.4-10.4); PLATELET COUNT 245 K/uL (130-400); POTASSIUM 3.4 mmol/L (3.5-5.1); RED BLOOD COUNT 3.32 M/uL (4.2-5.4); SODIUM 137 mmol/L (136-145); WHITE BLOOD COUNT 3.94 K/uL (4.8-10.8)
[2017-08-11 17:40] LABS: INR 6.2 (0.9-1.1)
== END | disposition home or self-care (01) ==
LOC: C.LABBC 14:36
PROVIDERS: ATTEND Internal Medicine Cardiovascular Disease
DX: Z01.818 Encounter for other preprocedural examination (principal)

== ENCOUNTER → 2017-08-14 | Outpatient (CLI) | payer OTHER ==
[2017-08-14 17:03] LABS: INR 5.1 (0.9-1.1); PROTHROMBIN TIME (PATIENT) 51.6 SECONDS (9.0-12.0)
== END | disposition home or self-care (01) ==
LOC: C.LAB 15:59
PROVIDERS: ATTEND Physician Assistant Medical
DX: I48.91 Unspecified atrial fibrillation (principal)

== ENCOUNTER → 2017-08-15 | Outpatient (CLI) | payer OTHER ==
[2017-08-15 12:21] LABS: INR 4.5 (0.9-1.1); PROTHROMBIN TIME (PATIENT) 45.6 SECONDS (9.0-12.0)
== END | disposition home or self-care (01) ==
LOC: C.LAB1850 10:11
PROVIDERS: ATTEND Physician Assistant Medical
DX: I48.91 Unspecified atrial fibrillation (principal)

== ENCOUNTER 2017-11-10 09:11 | Inpatient (IN) | payer OTHER ==
[2017-11-10] VITALS (28 sets, daily range): BP systolic 57–141; BP diastolic 39–95; PULSE 96–147; TEMP 36.3–36.9; O2SAT 78–100; Ht 167.6 cm; Wt 72.9 kg
[~2017-11-10] VITALS: Ht 167.6 cm; Wt 72.9 kg
[~2017-11-10 09:11] MED LIST changes: -ATOR-24 PO; -ESCI10TA17 PO; -Fibersource 1.2 Cal NG; -MULTLIQ PO; -NICO21DI4 TD; -NUTRMIS PO; -OMEP20TA PO; -POTTAB2 PO; -SUCR1TAB29 PO; -XFX550 PO
--- NOTE | 2017-11-10 10:06 | EMERGENCY ROOM VISIT NOTE ---
History Report prepared by Lakeisha: Elsie Roach Under the Supervision of: Dr. Arun Lucas M.D. First contact with patient: 09:38 Chief Complaint: ALTERED MENTAL STATUS Stated Complaint: AMS History of Present Illness The patient is a 61 year old female who presents to the Emergency Room with complaints of persistent general confusion since this morning. Per , the patient fell five days ago. He states that she tripped over their dog. He states that he had to help the patient use the bathroom, as she could not walk due to weakness. He states that he laid her on the couch, though she seemed to roll over and so he lowered her to the floor. He states that he could not pick her up, so he allowed her to sleep on the floor for the night. He states that she seemed more confused, so he brought her to the ED for evaluation. She notes right wrist pain and left hip pain. She denies any fevers, chills, cough, congestion, nausea, vomiting, or diarrhea. She is taking Coumadin. She denies any neck pain. Per , the patient was complaining about her legs and ankles all night long, though she denies pain. HPI is limited secondary to patient's altered mental status. Review of notes from coagulation clinic in October 2017: They did not believe Coumadin was the best choice for her because she would frequently miss her INR checks. Source of History: patient, spouse/significant other Onset: since this morning Position: other (general - brain) Quality: other (confusion) Timing: other (persistent) Associated Symptoms: No fevers, No chills, No cough, No neck pain, No nausea , No vomiting, No diarrhea Note: She notes right wrist pain and left hip pain. She denies any congestion. Review of Systems ROS is limited secondary to patient's altered mental status. Past Medical & Surgical Medical Problems: (1) Acute encephalopathy (2) Acute liver disease (3) Alcohol dependence (4) Alcohol withdrawal (5) Altered mental status (6) Dislocation of ankle joint (7) GERD (gastroesophageal reflux disease) (8) Hyperlipidemia (9) Hypernatremia (10) Hypotension (11) [facility] (current) use of 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 (12) NSTEMI (non-ST elevated myocardial infarction) (13) Rapid atrial fibrillation (14) Trimalleolar fracture of left ankle (15) Trimalleolar fracture of right ankle Family History Cancer Hypertension Social History Smoking Status: Never Smoker Alcohol Use: heavy Drug Use: none Marital Status: Housing Status: lives with significant other Occupation Status: employed Current/Historical Medications Scheduled Aspirin (Aspirin Chewable), 81 MG PO DAILY Atorvastatin (Lipitor), 40 MG PO QAM Carvedilol (Coreg), 9.375 MG PO BID Digoxin (Digoxin), 0.125 MG PO DAILY Escitalopram (Lexapro), 10 MG PO DAILY Folic Acid (Folvite), 1 MG PO DAILY Magnesium Oxide (Mag-Ox), 400 MG PO BID Omeprazole (Omeprazole), 20 MG PO BID Pot Phosphate Monobasic W/ Sod (Phospha 250 Neutral), 1 TAB PO DAILY Sucralfate (Carafate), 1 GM PO QID Thiamine Hcl (Vitamin B-1), 100 MG PO QAM Warfarin Sod (Jantoven), 4 MG PO DAILY Miscellaneous Medications Multiple Vitamin (Therems) Allergies Coded Allergies: No Known Allergies (Verified , 03/31/17) Physical Exam Vital Signs Date Time Temp Pulse Resp B/P (MAP) Pulse Ox O2 Delivery O2 Flow Rate FiO2 11/10/17 12:19 36.7 125 24 69/54 100 11/10/17 12:07 114 26 80/58 100 Room Air 11/10/17 11:54 36.7 110 22 76/58 95 11/10/17 10:35 127 24 110/61 94 Room Air 11/10/17 09:34 95 Room Air 11/10/17 09:34 36.5 133 26 114/77 95 Room Air 11/10/17 09:21 128 Physical Exam GENERAL: Awake, alert, fatigued-appearing, no distress. Confused. HEAD: Normocephalic, atraumatic. No watters sign. No raccoon eyes. EYES: Normal conjunctiva. PERRL. EARS: External ears normal. Right TM normal. Left TM normal. NOSE: Atraumatic OROPHARYNX: Lips, tongue, and mucosa dry and cracked. No erythema or exudate. Poor dentition, loose front upper teeth with dried blood. NECK: FROM. No tracheal deviation or JVD. No posterior midline tenderness. No step offs noted. RESPIRATORY: CTA bilaterally CARDIAC: Irregular rate, irregular rhythm. ABDOMEN: Inspection reveals no abnormalities. Soft, non distended. No tenderness to palpation. No hernias. BACK: No midline step offs or tenderness to palpation. Unremarkable. PELVIS: Stable to rock. RECTUM: Small amount of red blood, Guaiac positive. No melena. SKIN: Pale and dry. LYMPH: No adenopathy. MUSCULOSKELETAL: 2 cm contusion under left breast. Mild tenderness to the right wrist and upper arm. 20 cm hematoma on lateral left hip and upper left thigh, otherwise FROM of bilateral LE without any tenderness. NEURO: GCS 13. Normal sensorium. No sensory or motor deficits noted. Medical Decision & Procedures ER Provider Diagnostic Interpretation: Radiology results as stated below per my review and radiologist interpretation: CHEST ONE VIEW PORTABLE CLINICAL HISTORY: 61 years-old Female presenting with Evaluate Fever/Sepsis. TECHNIQUE: Portable upright AP view of the chest was obtained. COMPARISON: 08/04/2017. FINDINGS: Atherosclerosis of aortic arch. Cardiac silhouette enlarged. Bandlike opacity in the left midlung. Pulmonary vascular prominence with vague perihilar opacities greater on the left. Additionally, suggestion of left retrocardiac opacity. No large pleural effusion or pneumothorax. Plate and screw fixation with extensive posttraumatic deformity and incomplete osseous bridging at the right humeral metaphysis. Lucency surrounds nearly every screw. Upper abdomen normal. IMPRESSION: 1. Cardiomegaly with concern for volume overload and potential developing pulmonary edema. 2. More dense left retrocardiac opacity concerning for consolidation/pneumonia. 3. Lucencies surrounding nearly every visualized screw at the internal fixation of the right humerus raises concern for loosening or infection. Incomplete osseous bridging at the posttraumatic deformity. Electronically signed by: Santi Brock M.D. 11/10/2017 10:24 AM Dictated Date/Time: 11/10/2017 10:[address] SCAN OF THE BRAIN WITHOUT IV CONTRAST CLINICAL HISTORY: Fall. Change in mental status. COMPARISON STUDY: CT and MRI of the brain dated 02/08/2017. TECHNIQUE: Unenhanced axial CT scan of the brain is performed from the vertex to the skull base. A dose lowering technique was utilized adhering to the principles of ALARA. The patient was scanned twice due to motion artifact. Examination is significant compromise by motion. CT DOSE: 1530.61 mGy.cm FINDINGS: Brain parenchyma: There are age-related involutional changes noting moderate subcortical and periventricular microangiopathic change. There is no hemorrhage, mass effect, or evidence of acute territorial ischemia by CT criteria. Molina-white matter is preserved. No extra-axial fluid collection is seen. Ventricles, sulci, cisterns: Prominent secondary to involutional change. Intracranial vasculature: There is atherosclerotic calcification of the cavernous carotid and vertebral arteries. Calvarium: The skeletal structures are osteopenic. There is no depressed calvarial fracture. Sinuses and mastoids: The visualized paranasal sinuses are clear. The mastoid air cells are well pneumatized. Orbits: The bony orbits are grossly intact. IMPRESSION: There is no hemorrhage, mass effect, or evidence of acute territorial ischemia by CT criteria noting a motion degraded examination. Electronically signed by: Drew Lazo M.D. 11/10/2017 10:31 AM Dictated Date/Time: 11/10/2017 10:[address] SCAN OF THE CERVICAL SPINE CLINICAL HISTORY: Fall. COMPARISON STUDY: No priors. TECHNIQUE: CT scan of the cervical spine is performed from the skull base to the upper thoracic spine. Images are reviewed in the axial, sagittal, and coronal planes. IV contrast was not administered for this examination. A dose lowering technique was utilized adhering to the principles of ALARA. FINDINGS: Skeletal structures: The skeletal structures are osteopenic. There is no evidence of fracture or subluxation involving the cervical spine. Vertebral body height is maintained. There is minimal anterolisthesis at C4-C5. Alignment is otherwise preserved. Anterior osteophytes are noted throughout. There is straightening of the cervical lordosis with reversal centered at C4-C5. The odontoid process and lateral masses are intact. The atlantoaxial articulation is preserved noting productive degenerative change. The spinous processes appear intact. Mild multilevel facet arthropathy is observed. Intervertebral discs: Mild to moderate disc space narrowing is seen at C5-C6 and C6-C7. Central canal: Grossly patent. Soft tissues: The prevertebral and paraspinous soft tissues are within normal limits. There is dense atherosclerotic calcification of the carotid bulbs. Calvarium: The visualized calvarium at the skull base appears intact. Brain parenchyma: Partially visualized brain parenchyma the skull base is within normal limits. Sinuses and mastoids: The visualized paranasal sinuses are clear. The mastoid air cells are well pneumatized. Lung apices: Clear as visualized. IMPRESSION: 1. There is no evidence of fracture or subluxation involving the cervical spine. 2. Osteopenia and mild spondylotic change as above. Electronically signed by: Drew Lazo M.D. 11/10/2017 10:35 AM Dictated Date/Time: 11/10/2017 10:[address] SCAN OF THE CHEST, ABDOMEN, AND PELVIS WITH IV CONTRAST CLINICAL HISTORY: Fall. COMPARISON STUDY: CT scan of the chest, abdomen, and pelvis dated 03/07/2010. TECHNIQUE: Following the IV administration of 94 of Optiray 320, CT scan of the chest, abdomen, and pelvis was performed from the thoracic inlet to the proximal femora. Images are reviewed in the axial, sagittal, and coronal planes. IV contrast was administered without complication. Automated dose control exposure was utilized. A dose lowering technique was utilized adhering to the principles of ALARA. The examination is degraded by motion artifact, as well as by streak artifact from the arms which could not be elevated above the chest or abdomen. CT DOSE: 1048.39 mGy.cm FINDINGS: CHEST: Thyroid: Imaged portions of the thyroid gland are normal in size and attenuation. Thoracic aorta: There is atherosclerotic calcification of the thoracic aorta, which is normal in caliber and demonstrates standard 3-vessel arch anatomy. No dissection is seen. High-grade stenosis is suggested in the left common carotid artery at the thoracic inlet. Pulmonary vasculature: The pulmonary trunk is dilated, measuring up to 3.6 cm in transverse diameter. This suggests pulmonary artery hypertension. There are no filling defects identified in the central pulmonary vessels to indicate pulmonary embolus. Note that this examination was not protocoled for evaluation of the pulmonary arteries. Heart: The heart is markedly enlarged and there is a small pericardial effusion. The coronary arteries are densely calcified. Lungs and pleural spaces: Evaluation of the lung parenchyma is degraded by motion artifact. Emphysematous change is observed. Scarring/segmental atelectasis is noted in the lingula. Minimal patchy airspace consolidation is suggested at the right lung base. No pleural effusion is identified. No pneumothorax is seen. The trachea and central airways are patent. A 4 mm nodule is suggested in the left upper lobe on image #92. Mediastinum: There is no mediastinal hematoma or lymphadenopathy. Soni: Clear. Axillae: There is no axillary lymphadenopathy. Bony thorax: The skeletal structures are osteopenic. There is a moderate an age indeterminant compression deformity of T7. Mild hyperkyphosis is observed. The bony thorax is otherwise intact. No lytic or blastic lesions are identified. ABDOMEN AND PELVIS: Liver: The contrast-enhanced liver is normal in size, contour, and attenuation. There is no intrahepatic or ductal dilatation. The hepatic veins and portal veins are patent. Gallbladder: Unremarkable. Spleen: Normal in size and attenuation. Pancreas: Atrophic and grossly unremarkable. Adrenal glands: A 1.5 cm left adrenal adenoma is unchanged from 2010. Mild nodularity of the right adrenal gland is also stable. Kidneys: The contrast enhanced kidneys are atrophic and without hydronephrosis. The kidneys enhance symmetrically. A 1.5 cm cyst is noted in the right lower pole. Abdominal vasculature: The abdominal aorta is normal in course and caliber noting advanced atherosclerotic calcification. Bowel: There is moderate colonic diverticulosis without CT evidence of acute diverticulitis. No bowel obstruction is identified. The appendix is well-visualized and normal. Peritoneum: There is no intraperitoneal free air or abdominal ascites. Lymphadenopathy: None. Pelvic viscera: The bladder is decompressed around a Acosta catheter and not evaluated. The uterus and adnexa are normal as visualized. Skeletal structures: The skeletal structures are osteopenic. The lumbosacral spine and bony pelvis appear intact. No lytic or blastic lesions are seen. Soft tissues: There is marked soft tissue edema and simultaneous fluid identified overlying the left hip and in the left upper thigh. A 3.1 x 2.0 cm hematoma is seen superficial to the left gluteal musculature on image #259. Intramuscular hematomas identified within the left gluteal musculature on image #356. This measures approximately 6 x 4 cm. IMPRESSION: 1. Significantly streak and motion compromised examination. 2. There is marked subcutaneous soft tissue edema/contusion seen overlying the left hip and in the left upper thigh. A small hematoma is seen within the subcutaneous fat as detailed above. 3. There is an approximately 6 x 4 cm intramuscular hematoma identified in the left gluteal musculature. 4. There is no evidence of solid organ injury in the abdomen or pelvis. 5. There is a moderate and age indeterminant compression deformity of T7. Correlate for point tenderness at this site. 6. No additional findings are concerning for acute fracture. 7. Patchy airspace consolidation is present at the right lung base. Correlate clinically for evidence of pneumonia/aspiration pneumonitis. 8. There is no pleural effusion or pneumothorax. 9. Marked cardiomegaly and small pericardial effusion. 10. Emphysema. 11. There is a 4 mm left upper lobe pulmonary nodule. This can be followed as per the Fleischner criteria. See below. 12. There is moderate colonic diverticulosis without CT evidence of acute diverticulitis. 13. High-grade stenosis is questioned in the left common carotid artery. This is not well assessed due to motion artifact. Follow-up with a carotid artery ultrasound is recommended. 14. Additional findings as above. Please refer to below summary of Fleischner criteria recommendations for follow-up of incidental CT nodules (Dinaa Mcknight, Guidelines for management of small pulmonary nodules detected on CT scans: A statement from the Fleischner Society, Radiology 237: [phone].) SOLID NODULES Solitary nodule size: <6 mm * low risk patients: no follow-up needed * high risk patients: optional CT at 12 months Solitary nodule size: 6-8 mm * low risk patients: follow-up at 6-12 months, then consider further follow-up at 18-24 months * high risk patients: initial follow-up CT at 6-12 months and then at 18-24 months if no change Solitary nodule size: >8 mm * either low or high risk patients - consider follow-up CT at 3 months, and/or CT-PET, and/or biopsy Multiple nodules size: <6 mm * low risk patients: no routine follow-up * high risk patients: optional CT at 12 months Multiple nodules size: 6-8 mm * low risk patients: follow-up at 3-6 months, then consider further follow-up at 18-24 months * high risk patients: follow-up at 3-6 months, then at 18-24 months if no change Multiple nodules size: >8 mm * low risk patients: follow-up at 3-6 months, then consider further follow-up at 18-24 months * high risk patients: follow-up at 3-6 months, then at 18-24 months if no change Note: newly detected indeterminate nodule in persons 35 years of age or older. * low risk patients: minimal or absent history of smoking and/or other known risk factors * high risk patients: history of smoking or of other known risk factors (e.g. first degree relative with lung cancer, or exposure to asbestos, radon, uranium) * if a nodule up to 8 mm is partly solid or is ground glass further follow-up is required after 24 months to exclude possible slow growing adenocarcinoma (GENE) SUBSOLID NODULES Solitary pure ground-glass nodule * nodule size <6 mm - no CT follow-up required * nodule size >=6 mm - follow-up CT at 6-12 months, then every 2 years until 5 years Solitary part-solid nodule * nodule size <6 mm - no CT follow-up required * nodule size >=6 mm - follow-up CT at 3-6 months. If unchanged, and solid component remains <6 mm, then annual follow-up for 5 years Multiple subsolid nodules * nodule size <6 mm - follow-up CT at 3-6 months, consider further follow-up at 2 and 4 years if stable * nodule size >=6 mm - follow-up CT at 3-6 months, subsequent management based on the most suspicious nodule(s) Electronically signed by: Drew Lazo M.D. 11/10/2017 12:06 PM Dictated Date/Time: 11/10/2017 11:[address] SCAN OF THE CHEST, ABDOMEN, AND PELVIS WITH IV CONTRAST CLINICAL HISTORY: Fall. COMPARISON STUDY: CT scan of the chest, abdomen, and pelvis dated 03/07/2010. TECHNIQUE: Following the IV administration of 94 of Optiray 320, CT scan of the chest, abdomen, and pelvis was performed from the thoracic inlet to the proximal femora. Images are reviewed in the axial, sagittal, and coronal planes. IV contrast was administered without complication. Automated dose control exposure was utilized. A dose lowering technique was utilized adhering to the principles of ALARA. The examination is degraded by motion artifact, as well as by streak artifact from the arms which could not be elevated above the chest or abdomen. CT DOSE: 1048.39 mGy.cm FINDINGS: CHEST: Thyroid: Imaged portions of the thyroid gland are normal in size and attenuation. Thoracic aorta: There is atherosclerotic calcification of the thoracic aorta, which is normal in caliber and demonstrates standard 3-vessel arch anatomy. No dissection is seen. High-grade stenosis is suggested in the left common carotid artery at the thoracic inlet. Pulmonary vasculature: The pulmonary trunk is dilated, measuring up to 3.6 cm in transverse diameter. This suggests pulmonary artery hypertension. There are no filling defects identified in the central pulmonary vessels to indicate pulmonary embolus. Note that this examination was not protocoled for evaluation of the pulmonary arteries. Heart: The heart is markedly enlarged and there is a small pericardial effusion. The coronary arteries are densely calcified. Lungs and pleural spaces: Evaluation of the lung parenchyma is degraded by motion artifact. Emphysematous change is observed. Scarring/segmental atelectasis is noted in the lingula. Minimal patchy airspace consolidation is suggested at the right lung base. No pleural effusion is identified. No pneumothorax is seen. The trachea and central airways are patent. A 4 mm nodule is suggested in the left upper lobe on image #92. Mediastinum: There is no mediastinal hematoma or lymphadenopathy. Soni: Clear. Axillae: There is no axillary lymphadenopathy. Bony thorax: The skeletal structures are osteopenic. There is a moderate an age indeterminant compression deformity of T7. Mild hyperkyphosis is observed. The bony thorax is otherwise intact. No lytic or blastic lesions are identified. ABDOMEN AND PELVIS: Liver: The contrast-enhanced liver is normal in size, contour, and attenuation. There is no intrahepatic or ductal dilatation. The hepatic veins and portal veins are patent. Gallbladder: Unremarkable. Spleen: Normal in size and attenuation. Pancreas: Atrophic and grossly unremarkable. Adrenal glands: A 1.5 cm left adrenal adenoma is unchanged from 2010. Mild nodularity of the right adrenal gland is also stable. Kidneys: The contrast enhanced kidneys are atrophic and without hydronephrosis. The kidneys enhance symmetrically. A 1.5 cm cyst is noted in the right lower pole. Abdominal vasculature: The abdominal aorta is normal in course and caliber noting advanced atherosclerotic calcification. Bowel: There is moderate colonic diverticulosis without CT evidence of acute diverticulitis. No bowel obstruction is identified. The appendix is well-visualized and normal. Peritoneum: There is no intraperitoneal free air or abdominal ascites. Lymphadenopathy: None. Pelvic viscera: The bladder is decompressed around a Acosta catheter and not evaluated. The uterus and adnexa are normal as visualized. Skeletal structures: The skeletal structures are osteopenic. The lumbosacral spine and bony pelvis appear intact. No lytic or blastic lesions are seen. Soft tissues: There is marked soft tissue edema and simultaneous fluid identified overlying the left hip and in the left upper thigh. A 3.1 x 2.0 cm hematoma is seen superficial to the left gluteal musculature on image #259. Intramuscular hematomas identified within the left gluteal musculature on image #356. This measures approximately 6 x 4 cm. IMPRESSION: 1. Significantly streak and motion compromised examination. 2. There is marked subcutaneous soft tissue edema/contusion seen overlying the left hip and in the left upper thigh. A small hematoma is seen within the subcutaneous fat as detailed above. 3. There is an approximately 6 x 4 cm intramuscular hematoma identified in the left gluteal musculature. 4. There is no evidence of solid organ injury in the abdomen or pelvis. 5. There is a moderate and age indeterminant compression deformity of T7. Correlate for point tenderness at this site. 6. No additional findings are concerning for acute fracture. 7. Patchy airspace consolidation is present at the right lung base. Correlate clinically for evidence of pneumonia/aspiration pneumonitis. 8. There is no pleural effusion or pneumothorax. 9. Marked cardiomegaly and small pericardial effusion. 10. Emphysema. 11. There is a 4 mm left upper lobe pulmonary nodule. This can be followed as per the Fleischner criteria. See below. 12. There is moderate colonic diverticulosis without CT evidence of acute diverticulitis. 13. High-grade stenosis is questioned in the left common carotid artery. This is not well assessed due to motion artifact. Follow-up with a carotid artery ultrasound is recommended. 14. Additional findings as above. Please refer to below summary of Fleischner criteria recommendations for follow-up of incidental CT nodules (Diana Mcknight, Guidelines for management of small pulmonary nodules detected on CT scans: A statement from the Fleischner Society, Radiology 237: [phone].) SOLID NODULES Solitary nodule size: <6 mm * low risk patients: no follow-up needed * high risk patients: optional CT at 12 months Solitary nodule size: 6-8 mm * low risk patients: follow-up at 6-12 months, then consider further follow-up at 18-24 months * high risk patients: initial follow-up CT at 6-12 months and then at 18-24 months if no change Solitary nodule size: >8 mm * either low or high risk patients - consider follow-up CT at 3 months, and/or CT-PET, and/or biopsy Multiple nodules size: <6 mm * low risk patients: no routine follow-up * high risk patients: optional CT at 12 months Multiple nodules size: 6-8 mm * low risk patients: follow-up at 3-6 months, then consider further follow-up at 18-24 months * high risk patients: follow-up at 3-6 months, then at 18-24 months if no change Multiple nodules size: >8 mm * low risk patients: follow-up at 3-6 months, then consider further follow-up at 18-24 months * high risk patients: follow-up at 3-6 months, then at 18-24 months if no change Note: newly detected indeterminate nodule in persons 35 years of age or older. * low risk patients: minimal or absent history of smoking and/or other known risk factors * high risk patients: history of smoking or of other known risk factors (e.g. first degree relative with lung cancer, or exposure to asbestos, radon, uranium) * if a nodule up to 8 mm is partly solid or is ground glass further follow-up is required after 24 months to exclude possible slow growing adenocarcinoma (GENE) SUBSOLID NODULES Solitary pure ground-glass nodule * nodule size <6 mm - no CT follow-up required * nodule size >=6 mm - follow-up CT at 6-12 months, then every 2 years until 5 years Solitary part-solid nodule * nodule size <6 mm - no CT follow-up required * nodule size >=6 mm - follow-up CT at 3-6 months. If unchanged, and solid component remains <6 mm, then annual follow-up for 5 years Multiple subsolid nodules * nodule size <6 mm - follow-up CT at 3-6 months, consider further follow-up at 2 and 4 years if stable * nodule size >=6 mm - follow-up CT at 3-6 months, subsequent management based on the most suspicious nodule(s) Electronically signed by: Drew Lazo M.D. 11/10/2017 12:06 PM Dictated Date/Time: 11/10/2017 11:35 AM R SHOULDER MIN 2 VIEWS ROUTINE CLINICAL HISTORY: Right arm pain following fall. COMPARISON: Right humerus radiographs January 04, 2010. FINDINGS: No acute fracture of the right shoulder is identified. Alignment of the right shoulder is anatomic. A previous right humeral internal fixation for mid shaft fracture is noted. The fracture is not completely healed. There is evidence for a nonunion. Lucency surrounding the screws within the right humerus suggests hardware loosening. These findings are not acute. IMPRESSION: 1. No acute fracture or dislocation of the right shoulder. 2. Previous right humeral internal fixation of midshaft fracture. Fracture is incompletely healed. Findings suggest a nonunion with radiographic evidence of hardware loosening. Electronically signed by: Adan Posada M.D. 11/10/2017 12:32 PM Dictated Date/Time: 11/10/2017 12:29 PM R HUMERUS MIN 2 VIEWS ROUTINE CLINICAL HISTORY: 61 years-old Female presenting with pain fall. TECHNIQUE: Frontal and lateral views of the right humerus were obtained. COMPARISON: None. FINDINGS: Plate and screw fixation across the mid diaphysis of the right humerus. There is a persistent fracture plane with no osseous bridging evident. Extensive radiolucency surrounds every screw. Slight apex ventral angulation at the fracture site. No acute fracture or acute malalignment. The elbow joint and glenohumeral joint are grossly congruent. A soft tissue defect may be present along the medial soft tissues. 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 The report will be called/faxed according to standard departmental protocol. Electronically signed by: Santi Brock M.D. 11/10/2017 12:38 PM Dictated Date/Time: 11/10/2017 12:37 PM RIGHT WRIST 2 VIEWS CLINICAL HISTORY: Fall with right arm pain. FINDINGS: AP and crosstable lateral views of the right wrist are obtained. No prior studies are available for comparison at the time of dictation. The examination is degraded by suboptimal positioning. The skeletal structures are osteopenic. No fracture is identified. Mild degenerative narrowing is seen at the radiocarpal articulation. Mild osteoarthritic change is noted at the first carpometacarpal joint. Mild soft tissue swelling is present around the wrist. IMPRESSION: Mild soft tissue swelling with no radiographic evidence of right wrist fracture. Electronically signed by: Drew Lazo M.D. 11/10/2017 12:41 PM Dictated Date/Time: 11/10/2017 12:38 PM Laboratory Results 11/10/17 09:58 Red Blood Count 1.47, Mean Corpuscular Volume 77.6, Mean Corpuscular Hemoglobin 23.8, Mean Corpuscular Hemoglobin Concent 30.7, Neutrophils (%) (Auto) 82.9, Lymphocytes (%) (Auto) 6.6, Monocytes (%) (Auto) 8.2, Eosinophils (%) (Auto) 1.6 , Basophils (%) (Auto) 0.1, Neutrophils # (Auto) 7.73, Lymphocytes # (Auto) 0.62 , Monocytes # (Auto) 0.77, Eosinophils # (Auto) 0.15, Basophils # (Auto) 0.01 11/10/17 09:58 Test 11/10/17 09:30 11/10/17 09:58 11/10/17 10:00 11/10/17 11:42 Urine Color YELLOW Urine Appearance CLEAR (CLEAR) Urine pH 5.5 (4.5-7.5) Urine Specific [place] 1.016 (1.000-1.030) Urine Protein NEG (NEG) Urine Glucose (UA) NEG (NEG) Urine Ketones TRACE (NEG) Urine Occult Blood NEG (NEG) Urine Nitrite NEG (NEG) Urine Bilirubin NEG (NEG) Urine Urobilinogen NEG (NEG) Urine Leukocyte Esterase NEG (NEG) White Blood Count 9.34 K/uL (4.8-10.8) Red Blood Count 1.47 M/uL (4.2-5.4) Hemoglobin 3.5 g/dL (12.0-16.0) Hematocrit 11.4 % (37-47) Mean Corpuscular Volume 77.6 fL (80-100) Mean Corpuscular Hemoglobin 23.8 pg (25-34) Mean Corpuscular Hemoglobin Concent 30.7 g/dl (32-36) Platelet Count 246 K/uL (130-400) Neutrophils (%) (Auto) 82.9 % Lymphocytes (%) (Auto) 6.6 % Monocytes (%) (Auto) 8.2 % Eosinophils (%) (Auto) 1.6 % Basophils (%) (Auto) 0.1 % Neutrophils # (Auto) 7.73 K/uL (1.4-6.5) Lymphocytes # (Auto) 0.62 K/uL (1.2-3.4) Monocytes # (Auto) 0.77 K/uL (0.11-0.59) Eosinophils # (Auto) 0.15 K/uL (0-0.5) Basophils # (Auto) 0.01 K/uL (0-0.2) Immature Granulocyte % (Auto) 0.6 % Immature Granulocyte # (Auto) 0.06 K/uL (0.00-0.02) Nucleated RBC Absolute Count (auto) 0.02 K/uL (0-0) Nucleated Red Blood Cells % 0.2 % Polychromasia 1+ Hypochromasia PRESENT Prothrombin Time > 100.0 SECONDS Prothromb Time International Ratio > 10.0 (0.9-1.1) Activated Partial Thromboplast Time 186.5 SECONDS (21.0-31.0) Partial Thromboplastin Ratio 7.0 Venous Blood pH 7.44 (7.36-7.41) Anion Gap 9.0 mmol/L (3-11) Est Creatinine Clear Calc Drug Dose 41.2 ml/min Estimated GFR () 45.1 Estimated GFR (Non- 38.9 BUN/Creatinine Ratio 18.5 (10-20) Lactic Acid Level 1.4 mmol/L (0.4-2.0) Calcium Level 8.1 mg/dl (8.5-10.1) Magnesium Level 2.5 mg/dl (1.8-2.4) Total Bilirubin 0.9 mg/dl (0.2-1) Direct Bilirubin 0.3 mg/dl (0-0.2) Aspartate Amino Transf (AST/SGOT) 32 U/L (15-37) Alanine Aminotransferase (ALT/SGPT) 22 U/L (12-78) Alkaline Phosphatase 110 U/L (45-117) Ammonia < 10.0 umol/L (11-32) Total Creatine Kinase 411 U/L (26-192) Pro-B-Type Natriuretic Peptide 3691 pg/ml (0-900) Total Protein 5.9 gm/dl (6.4-8.2) Albumin 2.9 gm/dl (3.4-5.0) Lipase 65 U/L (73-393) Hepatitis C Antibody Screen NEG (NEG) Influenza Type A Antigen Neg for Influ A (NEG) Influenza Type B Antigen Neg for Influ B (NEG) Ethyl Alcohol mg/dL < 3.0 mg/dl (0-3) Laboratory results reviewed by me Medications Administered Medications (Trade) Dose Ordered Sig/Debbie Route Start Time Stop Time Status Last Admin Dose Admin Pantoprazole Sodium 40 mg/ Syringe 10 ml @ 5 mls/min NOW ONCE IV 11/10/17 11:00 11/10/17 11:01 DC 11/10/17 11:42 5 MLS/MIN Sodium Chloride 1,000 ml @ 125 mls/hr Q8H STAT IV 11/10/17 10:46 11/10/17 18:45 DC 11/10/17 10:46 125 MLS/HR Prothrombin Complex Concent (Human) 4000 unit/ Syringe 160 ml @ 10 mls/min TODAY@1130 IV 11/10/17 11:30 11/10/17 14:00 DC 11/10/17 11:41 10 MLS/MIN Phytonadione 10 mg/Sodium Chloride 51 ml @ 102 mls/hr NOW ONCE IV 11/10/17 11:15 11/10/17 11:44 DC 11/10/17 11:41 102 MLS/HR Vancomycin HCl 1600 mg/Sodium Chloride 532 ml @ 200 mls/hr ONE STAT IV 11/10/17 12:10 11/10/17 14:49 DC 11/10/17 13:25 200 MLS/HR Piperacillin Sod/ Tazobactam Sod (Zosyn Iv) 4.5 gm NOW STAT IV 11/10/17 12:10 11/10/17 12:11 DC 11/10/17 12:36 4.5 GM ECG Per My Interpretation Indication: other (confusion) Rate (beats per minute): 128 Rhythm: atrial fibrillation, other (with RVR) Findings: ST depression (Lateral), other (Normal axis) ED Course 0939: The patient was evaluated in room A12B. A complete history and physical exam was performed. 1022: I reassessed the patient at this time. She is resting. 1108: I spoke with Dr. Nick, [facility] hospitalist. We discussed the patient's case. The patient will be evaluated by the [facility] for further management. 1112: I spoke with Dr. Ingram, Critical Care marriage and family social worker. We discussed the patient's case. He agreed regarding the imaging and agrees that it is most likely slow anemia. The patient can be further evaluated here. 1116: I spoke with Dr. Marshall, director of coagulation clinic. We discussed the patient's case. She states the patient's hemoglobin was 8 one month ago. 1122: I spoke with Dr. Nick, [facility] hospitalist. I updated her on the patient' s case. 1154: I reassessed the patient at this time. The patient is currently being evaluated. Medical Decision I reviewed the patient's past medical history, medications, and the nursing notes as described above. Differential diagnosis: Etiologies such as fracture, dislocation, intra-abdominal, pneumothorax, intrathoracic , intracranial, neurologic, metabolic, infection, hypo/ hyperglycemia, electrolyte abnormalities, cardiac sources, intracerebral event, toxicologic, neurologic, as well as other traumatic pathologies were entertained. The patient is a 61 y/o woman with a pmhx of afib on coumadin, alcohol abuse, cirrhosis, HTN, HLD, CAD presents to the emergency department with worsening mental status of the past week in the setting of having a fall earlier in the week and then becoming so fatigue last night that she slept on the floor per HPI. On arrival, the patient is drowsy and confused but arousable to soft voice. GCS 13. AF, HR 120s with SBP 100-110s. EKG demonstrates afib with lateral ST depressions. Labs concerning for critical anemia with hemoglobin of 3.5. INR > 10. pH 7.44, BNP 3000s likely high-output failure 2/2 profound anemia. Lactate wnl. Rectal exam demonstrates scant red blood that is guaiac positive. CT head, cspine, chest, abd/pel demonstrate superficial left hip/thigh /gluteal hematoma with no evidence of active extrav. Also shows right basilar consolidation. Patient ordered for 3 units PRBCs to begin as well as K-centra with Vit K for rapid INR reversal. Will additional cover with Vanc/Zosyn for possible sepsis with likely pulmonary source. Given the patient's relative stability and lack of acidemia in the setting of profound anemia, process likely more gradual than acute. Case d/w Dr. Nick who will admit the patient to the ICU. Additionally d/w Dr. Ingram, ICU marriage and family social worker, who will manage the patient in the ICU. Head Trauma GCS Score: 14 Medication Reconcilliation Current Medication List: was personally reviewed by me Blood Pressure Screening Patient's blood pressure: Normal blood pressure Consults Time Called: 1103 Consulting Physician: DIANNE Crowley hospitalist Returned Call: 1108 I spoke with DIANNE Crowley hospitalist. We discussed the patient's case. The patient will be evaluated by the [facility] for further management. 1122: I spoke with DIANNE Crowley hospitalist. I updated her on the patient' s case. Additional Consults: Time Called: 1104 Consulted Physician: Dr. Ingram, Critical Care marriage and family social worker Returned Call: 1112 Additional Comments: I spoke with Dr. Ingram, Critical Care marriage and family social worker. We discussed the patient' s case. He agreed regarding the imaging and agrees that it is most likely slow anemia. The patient can be further evaluated here. Time Called: 1116 Consulted Physician: Dr. Marshall, director of coagulation clinic Additional Comments: I spoke with Dr. Marshall, director of coagulation clinic. We discussed the patient's case. She states the patient's hemoglobin was 8 one month ago. Impression Primary Impression: Severe anemia Additional Impressions: Supratherapeutic INR PNA (pneumonia) TERRY (acute kidney injury) GIB (gastrointestinal bleeding) Critical Care I have personally spent greater than 80 minutes of critical care time in the direct management of this patient. This includes bedside care, interpretation of diagnostic studies, and testing, discussion with consultants, patient, and family members, and other required patient management activities. This 80 minutes is in excess of all separately billable procedures. Scribe Attestation The scribe's documentation has been prepared under my direction and personally reviewed by me in its entirety. I confirm that the note above accurately reflects all work, treatment, procedures, and medical decision making performed by me. Departure Information Dispostion Being Evaluated By Hospitalist Referrals Maria Dolores Aranda .JAMILA (PCP) Patient Instructions My [facility] Problem Qualifiers
--- NOTE | 2017-11-10 10:25 | DIAGNOSTIC IMAGING REPORT ---
CHEST ONE VIEW PORTABLE CLINICAL HISTORY: 61 years-old Female presenting with Evaluate Fever/Sepsis. TECHNIQUE: Portable upright AP view of the chest was obtained. COMPARISON: 08/04/2017. FINDINGS: Atherosclerosis of aortic arch. Cardiac silhouette enlarged. Bandlike opacity in the left midlung. Pulmonary vascular prominence with vague perihilar opacities greater on the left. Additionally, suggestion of left retrocardiac opacity. No large pleural effusion or pneumothorax. Plate and screw fixation with extensive posttraumatic deformity and incomplete osseous bridging at the right humeral metaphysis. Lucency surrounds nearly every screw. Upper abdomen normal. IMPRESSION: 1. Cardiomegaly with concern for volume overload and potential developing pulmonary edema. 2. More dense left retrocardiac opacity concerning for consolidation/pneumonia. 3. Lucencies surrounding nearly every visualized screw at the internal fixation of the right humerus raises concern for loosening or infection. Incomplete osseous bridging at the posttraumatic deformity. Electronically signed by: Santi Brock M.D. 11/10/2017 10:24 AM Dictated Date/Time: 11/10/2017 10:22 AM
[2017-11-10 10:29] LABS: HEMATOCRIT 11.4 % (37-47); HEMOGLOBIN 3.5 g/dL (12.0-16.0); MEAN CELL VOLUME 77.6 fL (80-100); MEAN CORPUSCULAR HEMOGLOBIN 23.8 pg (25-34); MEAN CORPUSCULAR HGB CONC 30.7 g/dl (32-36); NUCLEATED RED BLOOD CELL ABS 0.02 K/uL (0-0); PLATELET COUNT 246 K/uL (130-400); WHITE BLOOD COUNT 9.34 K/uL (4.8-10.8)
--- NOTE | 2017-11-10 10:33 | DIAGNOSTIC IMAGING REPORT ---
CT SCAN OF THE BRAIN WITHOUT IV CONTRAST CLINICAL HISTORY: Fall. Change in mental status. COMPARISON STUDY: CT and MRI of the brain dated 02/08/2017. TECHNIQUE: Unenhanced axial CT scan of the brain is performed from the vertex to the skull base. A dose lowering technique was utilized adhering to the principles of ALARA. The patient was scanned twice due to motion artifact. Examination is significant compromise by motion. CT DOSE: 1530.61 mGy.cm FINDINGS: Brain parenchyma: There are age-related involutional changes noting moderate subcortical and periventricular microangiopathic change. There is no hemorrhage, mass effect, or evidence of acute territorial ischemia by CT criteria. Molina-white matter is preserved. No extra-axial fluid collection is seen. Ventricles, sulci, cisterns: Prominent secondary to involutional change. Intracranial vasculature: There is atherosclerotic calcification of the cavernous carotid and vertebral arteries. Calvarium: The skeletal structures are osteopenic. There is no depressed calvarial fracture. Sinuses and mastoids: The visualized paranasal sinuses are clear. The mastoid air cells are well pneumatized. Orbits: The bony orbits are grossly intact. IMPRESSION: There is no hemorrhage, mass effect, or evidence of acute territorial ischemia by CT criteria noting a motion degraded examination. Electronically signed by: Drwe Lazo M.D. 11/10/2017 10:31 AM Dictated Date/Time: 11/10/2017 10:27 AM
[2017-11-10 10:36] LABS: ALBUMIN 2.9 gm/dl (3.4-5.0); CALCIUM 8.1 mg/dl (8.5-10.1); CREATININE 1.43 mg/dl (0.60-1.20); POTASSIUM 4.7 mmol/L (3.5-5.1)
--- NOTE | 2017-11-10 10:37 | DIAGNOSTIC IMAGING REPORT ---
CT SCAN OF THE CERVICAL SPINE CLINICAL HISTORY: Fall. COMPARISON STUDY: No priors. TECHNIQUE: CT scan of the cervical spine is performed from the skull base to the upper thoracic spine. Images are reviewed in the axial, sagittal, and coronal planes. IV contrast was not administered for this examination. A dose lowering technique was utilized adhering to the principles of ALARA. FINDINGS: Skeletal structures: The skeletal structures are osteopenic. There is no evidence of fracture or subluxation involving the cervical spine. Vertebral body height is maintained. There is minimal anterolisthesis at C4-C5. Alignment is otherwise preserved. Anterior osteophytes are noted throughout. There is straightening of the cervical lordosis with reversal centered at C4-C5. The odontoid process and lateral masses are intact. The atlantoaxial articulation is preserved noting productive degenerative change. The spinous processes appear intact. Mild multilevel facet arthropathy is observed. Intervertebral discs: Mild to moderate disc space narrowing is seen at C5-C6 and C6-C7. Central canal: Grossly patent. Soft tissues: The prevertebral and paraspinous soft tissues are within normal limits. There is dense atherosclerotic calcification of the carotid bulbs. Calvarium: The visualized calvarium at the skull base appears intact. Brain parenchyma: Partially visualized brain parenchyma the skull base is within normal limits. Sinuses and mastoids: The visualized paranasal sinuses are clear. The mastoid air cells are well pneumatized. Lung apices: Clear as visualized. IMPRESSION: 1. There is no evidence of fracture or subluxation involving the cervical spine. 2. Osteopenia and mild spondylotic change as above. Electronically signed by: Drew Lazo M.D. 11/10/2017 10:35 AM Dictated Date/Time: 11/10/2017 10:32 AM
[2017-11-10] MEDS ORDERED: OMEP20TA PO (10:39)
[2017-11-10] MEDS ORDERED: ESCI10TA17 PO (10:39)
[2017-11-10] MEDS ORDERED: ATOR-24 PO (10:39)
[2017-11-10 10:40] LABS: TOTAL PROTEIN 5.9 gm/dl (6.4-8.2)
[2017-11-10 10:42] LABS: INFLUENZA B ANTIGEN Neg for Influ B (NEG)
[2017-11-10] MEDS ORDERED: SODIUM CHLORIDE 0.9% 1000ML 1,000 ML IV STA (10:46)
[2017-11-10 10:51] LABS: BASO % 0.1 %; BASO ABS # 0.01 K/uL (0-0.2); EOS % 1.6 %; EOS ABS # 0.15 K/uL (0-0.5); IG# 0.06 K/uL (0.00-0.02); LYMPH % 6.6 %; LYMPH ABS # 0.62 K/uL (1.2-3.4); MONO % 8.2 %; MONO ABS # 0.77 K/uL (0.11-0.59); NEUT % 82.9 %; NEUT ABS # 7.73 K/uL (1.4-6.5)
[2017-11-10 10:57] LABS: INR > 10.0 (0.9-1.1)
[2017-11-10 10:58] LABS: PTT PATIENT 186.5 SECONDS (21.0-31.0)
[2017-11-10] MEDS ORDERED: PANTOprazole INJ 40 MG in SYRINGE 0 ML IV ONE (11:00)
[2017-11-10] MEDS ORDERED: OPTIRAY 320 IV PRN (11:00)
[2017-11-10] MEDS ORDERED: PHYTONADIONE INJ 10 MG in SODIUM CHLORIDE 0.9% 50ML 50 ML IV ONE (11:15)
[2017-11-10] MEDS ORDERED: ASPCH81X PO (11:27)
[2017-11-10] MEDS ORDERED: PROTHROMBIN COMP CONC- KCENTRA 4,000 UNIT in SYRINGE 0 ML IV SCH (11:30)
[2017-11-10] MEDS ORDERED: FOLI1TAB8 PO (11:52)
[2017-11-10] MEDS ORDERED: THIA100T11 PO (11:52)
[2017-11-10] MEDS ORDERED: WARF4TAB8 PO (11:52)
[2017-11-10] MEDS ORDERED: LNX125 PO (11:52)
[2017-11-10] MEDS ORDERED: CARV6.25 PO (11:52)
[2017-11-10] MEDS ORDERED: MAGN400T6 PO (11:52)
[2017-11-10] MEDS ORDERED: POTTAB2 PO (12:01)
--- NOTE | 2017-11-10 12:07 | DIAGNOSTIC IMAGING REPORT ---
CT SCAN OF THE CHEST, ABDOMEN, AND PELVIS WITH IV CONTRAST CLINICAL HISTORY: Fall. COMPARISON STUDY: CT scan of the chest, abdomen, and pelvis dated 03/07/2010. TECHNIQUE: Following the IV administration of 94 of Optiray 320, CT scan of the chest, abdomen, and pelvis was performed from the thoracic inlet to the proximal femora. Images are reviewed in the axial, sagittal, and coronal planes. IV contrast was administered without complication. Automated dose control exposure was utilized. A dose lowering technique was utilized adhering to the principles of ALARA. The examination is degraded by motion artifact, as well as by streak artifact from the arms which could not be elevated above the chest or abdomen. CT DOSE: 1048.39 mGy.cm FINDINGS: CHEST: Thyroid: Imaged portions of the thyroid gland are normal in size and attenuation. Thoracic aorta: There is atherosclerotic calcification of the thoracic aorta, which is normal in caliber and demonstrates standard 3-vessel arch anatomy. No dissection is seen. High-grade stenosis is suggested in the left common carotid artery at the thoracic inlet. Pulmonary vasculature: The pulmonary trunk is dilated, measuring up to 3.6 cm in transverse diameter. This suggests pulmonary artery hypertension. There are no filling defects identified in the central pulmonary vessels to indicate pulmonary embolus. Note that this examination was not protocoled for evaluation of the pulmonary arteries. Heart: The heart is markedly enlarged and there is a small pericardial effusion. The coronary arteries are densely calcified. Lungs and pleural spaces: Evaluation of the lung parenchyma is degraded by motion artifact. Emphysematous change is observed. Scarring/segmental atelectasis is noted in the lingula. Minimal patchy airspace consolidation is suggested at the right lung base. No pleural effusion is identified. No pneumothorax is seen. The trachea and central airways are patent. A 4 mm nodule is suggested in the left upper lobe on image #92. Mediastinum: There is no mediastinal hematoma or lymphadenopathy. Soni: Clear. Axillae: There is no axillary lymphadenopathy. Bony thorax: The skeletal structures are osteopenic. There is a moderate an age indeterminant compression deformity of T7. Mild hyperkyphosis is observed. The bony thorax is otherwise intact. No lytic or blastic lesions are identified. ABDOMEN AND PELVIS: Liver: The contrast-enhanced liver is normal in size, contour, and attenuation. There is no intrahepatic or ductal dilatation. The hepatic veins and portal veins are patent. Gallbladder: Unremarkable. Spleen: Normal in size and attenuation. Pancreas: Atrophic and grossly unremarkable. Adrenal glands: A 1.5 cm left adrenal adenoma is unchanged from 2010. Mild nodularity of the right adrenal gland is also stable. Kidneys: The contrast enhanced kidneys are atrophic and without hydronephrosis. The kidneys enhance symmetrically. A 1.5 cm cyst is noted in the right lower pole. Abdominal vasculature: The abdominal aorta is normal in course and caliber noting advanced atherosclerotic calcification. Bowel: There is moderate colonic diverticulosis without CT evidence of acute diverticulitis. No bowel obstruction is identified. The appendix is well-visualized and normal. Peritoneum: There is no intraperitoneal free air or abdominal ascites. Lymphadenopathy: None. Pelvic viscera: The bladder is decompressed around a Acosta catheter and not evaluated. The uterus and adnexa are normal as visualized. Skeletal structures: The skeletal structures are osteopenic. The lumbosacral spine and bony pelvis appear intact. No lytic or blastic lesions are seen. Soft tissues: There is marked soft tissue edema and simultaneous fluid identified overlying the left hip and in the left upper thigh. A 3.1 x 2.0 cm hematoma is seen superficial to the left gluteal musculature on image #259. Intramuscular hematomas identified within the left gluteal musculature on image #356. This measures approximately 6 x 4 cm. IMPRESSION: 1. Significantly streak and motion compromised examination. 2. There is marked subcutaneous soft tissue edema/contusion seen overlying the left hip and in the left upper thigh. A small hematoma is seen within the subcutaneous fat as detailed above. 3. There is an approximately 6 x 4 cm intramuscular hematoma identified in the left gluteal musculature. 4. There is no evidence of solid organ injury in the abdomen or pelvis. 5. There is a moderate and age indeterminant compression deformity of T7. Correlate for point tenderness at this site. 6. No additional findings are concerning for acute fracture. 7. Patchy airspace consolidation is present at the right lung base. Correlate clinically for evidence of pneumonia/aspiration pneumonitis. 8. There is no pleural effusion or pneumothorax. 9. Marked cardiomegaly and small pericardial effusion. 10. Emphysema. 11. There is a 4 mm left upper lobe pulmonary nodule. This can be followed as per the Fleischner criteria. See below. 12. There is moderate colonic diverticulosis without CT evidence of acute diverticulitis. 13. High-grade stenosis is questioned in the left common carotid artery. This is not well assessed due to motion artifact. Follow-up with a carotid artery ultrasound is recommended. 14. Additional findings as above. Please refer to below summary of Fleischner criteria recommendations for follow-up of incidental CT nodules (Diana Mcknight, Guidelines for management of small pulmonary nodules detected on CT scans: A statement from the Fleischner Society, Radiology 237: [phone].) SOLID NODULES Solitary nodule size: <6 mm * low risk patients: no follow-up needed * high risk patients: optional CT at 12 months Solitary nodule size: 6-8 mm * low risk patients: follow-up at 6-12 months, then consider further follow-up at 18-24 months * high risk patients: initial follow-up CT at 6-12 months and then at 18-24 months if no change Solitary nodule size: >8 mm * either low or high risk patients - consider follow-up CT at 3 months, and/or CT-PET, and/or biopsy Multiple nodules size: <6 mm * low risk patients: no routine follow-up * high risk patients: optional CT at 12 months Multiple nodules size: 6-8 mm * low risk patients: follow-up at 3-6 months, then consider further follow-up at 18-24 months * high risk patients: follow-up at 3-6 months, then at 18-24 months if no change Multiple nodules size: >8 mm * low risk patients: follow-up at 3-6 months, then consider further follow-up at 18-24 months * high risk patients: follow-up at 3-6 months, then at 18-24 months if no change Note: newly detected indeterminate nodule in persons 35 years of age or older. * low risk patients: minimal or absent history of smoking and/or other known risk factors * high risk patients: history of smoking or of other known risk factors (e.g. first degree relative with lung cancer, or exposure to asbestos, radon, uranium) * if a nodule up to 8 mm is partly solid or is ground glass further follow-up is required after 24 months to exclude possible slow growing adenocarcinoma (GENE) SUBSOLID NODULES Solitary pure ground-glass nodule * nodule size <6 mm - no CT follow-up required * nodule size >=6 mm - follow-up CT at 6-12 months, then every 2 years until 5 years Solitary part-solid nodule * nodule size <6 mm - no CT follow-up required * nodule size >=6 mm - follow-up CT at 3-6 months. If unchanged, and solid component remains <6 mm, then annual follow-up for 5 years Multiple subsolid nodules * nodule size <6 mm - follow-up CT at 3-6 months, consider further follow-up at 2 and 4 years if stable * nodule size >=6 mm - follow-up CT at 3-6 months, subsequent management based on the most suspicious nodule(s) Electronically signed by: Drew Lazo M.D. 11/10/2017 12:06 PM Dictated Date/Time: 11/10/2017 11:35 AM
[2017-11-10] MEDS ORDERED: VANCOMYCIN IV STA (12:10)
[2017-11-10] MEDS ORDERED: PIPERACILLIN/TAZOBACTAM 4.5 GM/100ML D5W IV STA (12:10)
[2017-11-10] MEDS ORDERED: SODIUM CHLORIDE 0.9% IV STA (12:10)
[2017-11-10] MEDS ORDERED: VANCOMYCIN CONSULT ACTIVE PRN (12:15)
[2017-11-10] MEDS ORDERED: ACETAMINOPHEN 325 MG TAB PO PRN (12:30)
[2017-11-10] MEDS ORDERED: ICU PROTOCOL FOR HYPERGLYCEMIA PRN (12:30)
--- NOTE | 2017-11-10 12:34 | DIAGNOSTIC IMAGING REPORT ---
R SHOULDER MIN 2 VIEWS ROUTINE CLINICAL HISTORY: Right arm pain following fall. COMPARISON: Right humerus radiographs January 04, 2010. FINDINGS: No acute fracture of the right shoulder is identified. Alignment of the right shoulder is anatomic. A previous right humeral internal fixation for mid shaft fracture is noted. The fracture is not completely healed. There is evidence for a nonunion. Lucency surrounding the screws within the right humerus suggests hardware loosening. These findings are not acute. IMPRESSION: 1. No acute fracture or dislocation of the right shoulder. 2. Previous right humeral internal fixation of midshaft fracture. Fracture is incompletely healed. Findings suggest a nonunion with radiographic evidence of hardware loosening. Electronically signed by: Adan Posada M.D. 11/10/2017 12:32 PM Dictated Date/Time: 11/10/2017 12:29 PM
--- NOTE | 2017-11-10 12:40 | DIAGNOSTIC IMAGING REPORT ---
R HUMERUS MIN 2 VIEWS ROUTINE CLINICAL HISTORY: 61 years-old Female presenting with pain fall. TECHNIQUE: Frontal and lateral views of the right humerus were obtained. COMPARISON: None. FINDINGS: Plate and screw fixation across the mid diaphysis of the right humerus. There is a persistent fracture plane with no osseous bridging evident. Extensive radiolucency surrounds every screw. Slight apex ventral angulation at the fracture site. No acute fracture or acute malalignment. The elbow joint and glenohumeral joint are grossly congruent. A soft tissue defect may be present along the medial soft tissues. 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 The report will be called/faxed according to standard departmental protocol. Electronically signed by: Santi Brock M.D. 11/10/2017 12:38 PM Dictated Date/Time: 11/10/2017 12:37 PM
--- NOTE | 2017-11-10 12:42 | DIAGNOSTIC IMAGING REPORT ---
RIGHT WRIST 2 VIEWS CLINICAL HISTORY: Fall with right arm pain. FINDINGS: AP and crosstable lateral views of the right wrist are obtained. No prior studies are available for comparison at the time of dictation. The examination is degraded by suboptimal positioning. The skeletal structures are osteopenic. No fracture is identified. Mild degenerative narrowing is seen at the radiocarpal articulation. Mild osteoarthritic change is noted at the first carpometacarpal joint. Mild soft tissue swelling is present around the wrist. IMPRESSION: Mild soft tissue swelling with no radiographic evidence of right wrist fracture. Electronically signed by: Drew Lazo M.D. 11/10/2017 12:41 PM Dictated Date/Time: 11/10/2017 12:38 PM
[2017-11-10] MEDS ORDERED: SUCR1TAB29 PO (12:43)
--- NOTE | 2017-11-10 13:37 | History and Physical ---
History & Physical Date & Time of Service: Nov 10, 2017 at 13:29 Chief Complaint: AMS Primary Care Physician: Maria Dolores Aranda .JAMILA History of Present Illness Source: patient, spouse 61 y/o F who was brought to the ED by her for concerns regarding falls and AMS. states that pt has been altered for some time, at least a year. He feels this is getting worse. She has been falling more lately. She had a major fall about 5 days ago after she tripped over their dog. She could not get up on her own. He has been having to assist her with ambulation because she is so weak. At one point, she was too weak to assist in moving at all and could not manage her so he helped her to lower from the couch to the floor. He states the she complained about L hip and LE pain last night. Other than weakness and pain, he states she has had no specific complaints. He states she has been eating without issue and has a good appetite. Pt is unable to answer questions given current mentation. Per she has had no c/o fever, SOB, chest pain, abd pain, n/v/c/d. Pt has hx of heavy alcohol use. states that she has "not drank a drop since last December". 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 Social History Smoking Status: Never Smoker Alcohol Use: hx of heavy, but none since December Drug Use: none Marital Status: Housing status: lives with family Occupational Status: employed Immunizations History of Influenza Vaccine: Yes Influenza Vaccine Date: Jun 05, 2009 History of Tetanus Vaccine?: Yes History of Pneumococcal: Yes Pneumococcal Date: Mar 05, 2009 History of Hepatitis B Vaccine: No Allergies Coded Allergies: No Known Allergies (Verified , 03/31/17) Home Medications Scheduled Aspirin (Aspirin Chewable), 81 MG PO DAILY Atorvastatin (Lipitor), 40 MG PO QAM Carvedilol (Coreg), 9.375 MG PO BID Digoxin (Digoxin), 0.125 MG PO DAILY Escitalopram (Lexapro), 10 MG PO DAILY Folic Acid (Folvite), 1 MG PO DAILY Magnesium Oxide (Mag-Ox), 400 MG PO BID Omeprazole (Omeprazole), 20 MG PO BID Pot Phosphate Monobasic W/ Sod (Phospha 250 Neutral), 1 TAB PO DAILY Sucralfate (Carafate), 1 GM PO QID Thiamine Hcl (Vitamin B-1), 100 MG PO QAM Warfarin Sod (Jantoven), 4 MG PO DAILY Miscellaneous Medications Multiple Vitamin (Therems) Review of Systems Pertinent positives and negatives reviewed in HPI--all others negative, limited due to pt's mental status Physical Exam Vital Signs Date Time Temp Pulse Resp B/P (MAP) Pulse Ox O2 Delivery O2 Flow Rate FiO2 11/10/17 12:46 36.7 118 20 91/39 90 11/10/17 12:31 135 11/10/17 12:30 36.3 134 24 91/39 100 11/10/17 12:19 36.7 125 24 69/54 100 11/10/17 12:07 114 26 80/58 100 Room Air 11/10/17 11:54 36.7 110 22 76/58 95 11/10/17 10:35 127 24 110/61 94 Room Air 11/10/17 09:34 95 Room Air 11/10/17 09:34 36.5 133 26 114/77 95 Room Air 11/10/17 09:21 128 General Appearance: WD/WN, no apparent distress Head: normocephalic, atraumatic Eyes: normal inspection, sclerae normal ENT: + pertinent finding (teeth are blackened and in decay) Respiratory/Chest: normal breath sounds, no respiratory distress Cardiovascular: regular rate, rhythm, no edema Abdomen/GI: non tender, soft Extremities/Musculoskelatal: no calf tenderness, no pedal edema Neurologic/Psych: alert (to person but does not answer questions appropriately. Speech is clear but nonsensical), + pertinent finding (moving all extremities ) Skin: normal color, warm/dry Diagnostics Laboratory Results Results Past 24 Hours Test 11/10/17 09:30 11/10/17 09:58 11/10/17 10:00 11/10/17 11:42 Range/Units Urine Color YELLOW Urine Appearance CLEAR CLEAR Urine pH 5.5 4.5-7.5 Urine Specific [place] 1.016 1.000-1.030 Urine Protein NEG NEG Urine Glucose (UA) NEG NEG Urine Ketones TRACE NEG Urine Occult Blood NEG NEG Urine Nitrite NEG NEG Urine Bilirubin NEG NEG Urine Urobilinogen NEG NEG Urine Leukocyte Esterase NEG NEG White Blood Count 9.34 4.8-10.8 K/uL Red Blood Count 1.47 4.2-5.4 M/uL Hemoglobin 3.5 12.0-16.0 g/dL Hematocrit 11.4 37-47 % Mean Corpuscular Volume 77.6 80-100 fL Mean Corpuscular Hemoglobin 23.8 25-34 pg Mean Corpuscular Hemoglobin Concent 30.7 32-36 g/dl Platelet Count 246 130-400 K/uL Neutrophils (%) (Auto) 82.9 % Lymphocytes (%) (Auto) 6.6 % Monocytes (%) (Auto) 8.2 % Eosinophils (%) (Auto) 1.6 % Basophils (%) (Auto) 0.1 % Neutrophils # (Auto) 7.73 1.4-6.5 K/uL Lymphocytes # (Auto) 0.62 1.2-3.4 K/uL Monocytes # (Auto) 0.77 0.11-0.59 K/uL Eosinophils # (Auto) 0.15 0-0.5 K/uL Basophils # (Auto) 0.01 0-0.2 K/uL Immature Granulocyte % (Auto) 0.6 % Immature Granulocyte # (Auto) 0.06 0.00-0.02 K/uL Nucleated RBC Absolute Count (auto) 0.02 0-0 K/uL Nucleated Red Blood Cells % 0.2 % Polychromasia 1+ Hypochromasia PRESENT Prothrombin Time > 100.0 9.0-12.0 SECONDS Prothromb Time International Ratio > 10.0 0.9-1.1 Activated Partial Thromboplast Time 186.5 21.0-31.0 SECONDS Partial Thromboplastin Ratio 7.0 Venous Blood pH 7.44 7.36-7.41 Sodium Level 139 136-145 mmol/L Potassium Level 4.7 3.5-5.1 mmol/L Chloride Level 110 98-107 mmol/L Carbon Dioxide Level 21 21-32 mmol/L Anion Gap 9.0 3-11 mmol/L Blood Urea Nitrogen 27 7-18 mg/dl Creatinine 1.43 0.60-1.20 mg/dl Est Creatinine Clear Calc Drug Dose 41.2 ml/min Estimated GFR () 45.1 Estimated GFR (Non- 38.9 BUN/Creatinine Ratio 18.5 10-20 Random Glucose 116 70-99 mg/dl Lactic Acid Level 1.4 0.4-2.0 mmol/L Calcium Level 8.1 8.5-10.1 mg/dl Magnesium Level 2.5 1.8-2.4 mg/dl Total Bilirubin 0.9 0.2-1 mg/dl Direct Bilirubin 0.3 0-0.2 mg/dl Aspartate Amino Transf (AST/SGOT) 32 15-37 U/L Alanine Aminotransferase (ALT/SGPT) 22 12-78 U/L Alkaline Phosphatase 110 45-117 U/L Ammonia < 10.0 11-32 umol/L Total Creatine Kinase 411 26-192 U/L Troponin I < 0.015 0-0.045 ng/ml Pro-B-Type Natriuretic Peptide 3691 0-900 pg/ml Total Protein 5.9 6.4-8.2 gm/dl Albumin 2.9 3.4-5.0 gm/dl Lipase 65 73-393 U/L Influenza Type A Antigen Neg for Influ A NEG Influenza Type B Antigen Neg for Influ B NEG Ethyl Alcohol mg/dL < 3.0 0-3 mg/dl Microbiology Results 11/10/17 Blood Culture, Received Pending 11/10/17 Blood Culture, Received Pending Diagnostic Radiology CT head: neg for acute C-spine CT neg CT AP/chest: L hip/thigh hematoma ISA nodule L CCA stenosis, high grade ? PNA in L base Impression Assessment and Plan 61 y/o F who was admitted on 11/10 for AMS AMS: likely multifactorial in the setting of hx of assisted alcohol use Severe anemia, PRBC transfusing per ICU Flu neg, blood cx pending WBC WNL, afebrile High grade stenosis of L CCA noted, possibly causing worsening sx however pt is not a good candidate for CEA EtOH and ammonia neg Imaging as noted Pt was given abx in the ED, will defer to ICU for further need Anemia: likely related to hematomas s/p fall Monitor on PRBC GI c/s pending Of note: called by Dr. Loera of GI today. Pt had a bx done that was neg for cirrhosis. He would like to reiterate that pt does not have liver cirrhosis. Does not feel that anemia is related to GIB given hematomas and will sign off. Rec/s if needed R UE pain: XR noted that hardware is loose and there is incomplete healing of her fracture Will need ortho c/s once stable Afib/HTN/CAD/cardiomyopathy hx: holding coumadin for supratherapeutic INR, uncertain why this is elevated Hx of long standing alcohol use, EtOH neg in the ED and denies that pt is currently drinking Pt was recently discharged [facility] due to frequent missed appts and concerns from their staff regarding safety of pt to be taking coumadin Further coagulation plans will need to be decided prior to d/c Poor dentition s/p fall: will need to arrange for dental f/u as outpt DNR/DNI per , planning for conservative tx plans at this point with close monitoring Spent roughly 50 minutes evaluating pt, coordinating care with ED and ICU physicians, reviewing case, etc Resuscitation Status VTE Prophylaxis Will order VTE Prophylaxis: No Reason for no VTE drug order: Contraindicated Reason no Mechanical VTE Order: Contraindicated
--- NOTE | 2017-11-10 14:13 | Critical Care Consultation ---
Critical Care Consultation Date of Consultation: Nov 10, 2017. Attending Physician: Floridalma Nick DO Reason for Consultation: Profound Anemia History of Present Illness Patient presented to ER with global decline and increased gait instability. Evaluation disclosed Hgb of 3.5. Family does not report acute bleeding although generous soft tissue hematoma of the left buttock noted which has been attributed to her falling. INR was quit elevated. Coumadin has been utilized for atrial fib and cardiomyopathy. Her compliance and testing has been inconsistent. Her daily performance level is very poor. who lives with her provides some modicum of assistance but his insight into his 's pathology is poor at best. Underlying medical problems are substantial and include, Atrial Fib/Cardiomyopathy/Organic Brain Syndrome/Cirrhosis/Heavy Tobacco Abuse with Chronic Lung Disease. She is uncooperative with regard to a meaningful interview today. Family History Cancer Hypertension unhelpful Social History Reportedly stopped ETOH use last year. Heavy Tobacco Abuse Continues. Smoking Status: Never Smoker Alcohol Use: hx of heavy, but none since December Drug Use: none Marital Status: Housing Status: lives with significant other Occupation Status: employed Allergies Coded Allergies: No Known Allergies (Verified , 03/31/17) Home Medications Scheduled Aspirin (Aspirin Chewable), 81 MG PO DAILY Atorvastatin (Lipitor), 40 MG PO QAM Carvedilol (Coreg), 9.375 MG PO BID Digoxin (Digoxin), 0.125 MG PO DAILY Escitalopram (Lexapro), 10 MG PO DAILY Folic Acid (Folvite), 1 MG PO DAILY Magnesium Oxide (Mag-Ox), 400 MG PO BID Omeprazole (Omeprazole), 20 MG PO BID Pot Phosphate Monobasic W/ Sod (Phospha 250 Neutral), 1 TAB PO DAILY Sucralfate (Carafate), 1 GM PO QID Thiamine Hcl (Vitamin B-1), 100 MG PO QAM Warfarin Sod (Jantoven), 4 MG PO DAILY Miscellaneous Medications Multiple Vitamin (Therems) Current Inpatient Medications Current Inpatient Medications Medications (Trade) Dose Ordered Sig/Debbie Route Start Time Stop Time Status Last Admin Dose Admin Sodium Chloride 1,000 ml @ 125 mls/hr Q8H STAT IV 11/10/17 10:46 11/10/17 18:45 11/10/17 10:46 125 MLS/HR Ioversol (Optiray 320) 100 ml UD PRN IV 11/10/17 11:00 11/14/17 10:59 Prothrombin Complex Concent (Human) 4000 unit/ Syringe 160 ml @ 10 mls/min TODAY@1130 IV 11/10/17 11:30 11/10/17 14:00 11/10/17 11:41 10 MLS/MIN Vancomycin HCl 1600 mg/Sodium Chloride 532 ml @ 200 mls/hr ONE STAT IV 11/10/17 12:10 11/10/17 14:49 11/10/17 13:25 200 MLS/HR Miscellaneous Information (Consult) 1 ea UD PRN N/A 11/10/17 12:15 12/10/17 12:14 Acetaminophen (Tylenol Tab) 650 mg Q4H PRN PO 11/10/17 12:30 12/10/17 12:29 UNV Miscellaneous Information (Icu Protocol For Hyperglycemia) 1 ea PRN PRN N/A 11/10/17 12:30 11/12/17 12:29 Review of Systems Uncooperative. No chest pain and no dyspnea. No abdominal pain. Diffuse musculoskeletal pain. Does not recall fall with injury to face, but front teeth obviously injured and require extraction. Physical Exam Date Time Temp Pulse Resp B/P (MAP) Pulse Ox O2 Delivery O2 Flow Rate FiO2 11/10/17 12:46 36.7 118 20 91/39 90 11/10/17 12:31 135 11/10/17 12:30 36.3 134 24 91/39 100 11/10/17 12:19 36.7 125 24 69/54 100 11/10/17 12:07 114 26 80/58 100 Room Air 11/10/17 11:54 36.7 110 22 76/58 95 11/10/17 10:35 127 24 110/61 94 Room Air 11/10/17 09:34 95 Room Air 11/10/17 09:34 36.5 133 26 114/77 95 Room Air 11/10/17 09:21 128 Gen--pale HEENT--loose teeth Respiratory--exchange is fair--no loud wheezing/rhonchi Cardio--tachy--distant--perfusion is adequate GI--no target pain --Acosta to gravity--good urine output Musculo--bruising is substantial along the left hip and thigh--the right humerus is deformed consistent with nonunion of a previous fracture. Neuro--no focal issues. Psych--delirium and agitation Laboratory Results Last 24 Hours Test 11/10/17 09:30 11/10/17 09:58 11/10/17 10:00 11/10/17 11:42 Urine Color YELLOW Urine Appearance CLEAR Urine pH 5.5 Urine Specific [place] 1.016 Urine Protein NEG Urine Glucose (UA) NEG Urine Ketones TRACE Urine Occult Blood NEG Urine Nitrite NEG Urine Bilirubin NEG Urine Urobilinogen NEG Urine Leukocyte Esterase NEG White Blood Count 9.34 K/uL Red Blood Count 1.47 M/uL Hemoglobin 3.5 g/dL Hematocrit 11.4 % Mean Corpuscular Volume 77.6 fL Mean Corpuscular Hemoglobin 23.8 pg Mean Corpuscular Hemoglobin Concent 30.7 g/dl Platelet Count 246 K/uL Neutrophils (%) (Auto) 82.9 % Lymphocytes (%) (Auto) 6.6 % Monocytes (%) (Auto) 8.2 % Eosinophils (%) (Auto) 1.6 % Basophils (%) (Auto) 0.1 % Neutrophils # (Auto) 7.73 K/uL Lymphocytes # (Auto) 0.62 K/uL Monocytes # (Auto) 0.77 K/uL Eosinophils # (Auto) 0.15 K/uL Basophils # (Auto) 0.01 K/uL Immature Granulocyte % (Auto) 0.6 % Immature Granulocyte # (Auto) 0.06 K/uL Nucleated RBC Absolute Count (auto) 0.02 K/uL Nucleated Red Blood Cells % 0.2 % Polychromasia 1+ Hypochromasia PRESENT Prothrombin Time > 100.0 SECONDS Prothromb Time International Ratio > 10.0 Activated Partial Thromboplast Time 186.5 SECONDS Partial Thromboplastin Ratio 7.0 Venous Blood pH 7.44 Sodium Level 139 mmol/L Potassium Level 4.7 mmol/L Chloride Level 110 mmol/L Carbon Dioxide Level 21 mmol/L Anion Gap 9.0 mmol/L Blood Urea Nitrogen 27 mg/dl Creatinine 1.43 mg/dl Est Creatinine Clear Calc Drug Dose 41.2 ml/min Estimated GFR () 45.1 Estimated GFR (Non- 38.9 BUN/Creatinine Ratio 18.5 Random Glucose 116 mg/dl Lactic Acid Level 1.4 mmol/L Calcium Level 8.1 mg/dl Magnesium Level 2.5 mg/dl Total Bilirubin 0.9 mg/dl Direct Bilirubin 0.3 mg/dl Aspartate Amino Transf (AST/SGOT) 32 U/L Alanine Aminotransferase (ALT/SGPT) 22 U/L Alkaline Phosphatase 110 U/L Ammonia < 10.0 umol/L Total Creatine Kinase 411 U/L Troponin I < 0.015 ng/ml Pro-B-Type Natriuretic Peptide 3691 pg/ml Total Protein 5.9 gm/dl Albumin 2.9 gm/dl Lipase 65 U/L Influenza Type A Antigen Neg for Influ A Influenza Type B Antigen Neg for Influ B Ethyl Alcohol mg/dL < 3.0 mg/dl Diagnostic Results Reviewed all labs and images in the system today. Assessment & Plan Profound Anemia--Coagulopathy, Cardiomyopathy, Delirium, GI Blood Loss, Cirrhosis, Organic Brain: 1. Heme--correction of coagulopathy in progress (Prothrombin Complex Concentrate already hung) --4 units PRBCs to start. Goal of 7 Hgb level--GI consult-- 2. GI--at some point endoscopic evaluation to be considered--Hx of c.diff-- consider Vanco. Also consider Xifaxan 550mg BID 3. Cardio--caution with IV volume--hemodynamics suggest no acute and/or rapid blood loss. 4. Pulmonary--general supportive measures 5. Neuro--General Supportive Measures--May require Seroquel for agitation. 1X1 supervision required 6. Ortho--immobilizer for the left arm. Dispo--reviewed record and spoke with --a conservative and comfort oriented approach is indicated. A DNR/DNI status relayed by the when recounting her wishes. This is appropriate given her comorbid medical issues and current status.
[2017-11-10] MEDS ORDERED: QUETIAPINE FUMARATE 25 MG TAB PO PRN (14:15)
--- NOTE | 2017-11-10 16:15 | Gastrointestinal Consultation ---
Gastrointestinal Consultation Date of Consultation: Nov 10, 2017 Attending Physician: Nataly Consulting Physician: Evaristo Reason for Consultation: anemia, cirrhosis History of Present Illness Patient is a 61 year old female w/ history of ETOH abuse, HTN, GERD, anxiety/ depression, hyperlipidemia and others listed below brought to the ED on 11/10/17 for confusion, weakness and falls GI was consulted for anemia, cirrhosis. Pt was seen and evaluated, chart reviewed. No family at bedside. Pt is a poor historian and cannot accurately provide history. Pt tells me she feels okay, does not want to be here. She denies any bleeding - no BRBPR, no melena, no coffee ground emesis or hematemesis. No blood in urine. No abdominal pain. No fever, chills, lightheadness, dizziness, CP, SOB. CT ABD/Pelvis: Significantly streak and motion compromised examination. There is marked subcutaneous soft tissue edema/contusion seen overlying the left hip and in the left upper thigh. A small hematoma is seen within the subcutaneous fat as detailed above. There is an approximately 6 x 4 cm intramuscular hematoma identified in theleft gluteal musculature.There is no evidence of solid organ injury in the abdomen or pelvis.There is a moderate and age indeterminant compression deformity of T7.Correlate for point tenderness at this site. No additional findings are concerning for acute fracture. Patchy airspace consolidation is present at the right lung base. Correlateclinically for evidence of pneumonia/aspiration pneumonitis.There is no pleural effusion or pneumothorax. Marked cardiomegaly and small pericardial effusion. Emphysema. There is a 4 mm left upper lobe pulmonary nodule. This can be followed asper the Fleischner criteria. See below. There is moderate colonic diverticulosis without CT evidence of acutediverticulitis. High-grade stenosis is questioned in the left common carotid artery. This is not well assessed due to motion artifact. Follow-up with a carotid artery ultrasound is recommended. Liver Biopsy 01/2017: no evidence of liver fibrosis or liver cirrhosis Past Medical/Surgical History Medical Problems: (1) Acute electrocardiogram changes Status: Acute (2) TERRY (acute kidney injury) Status: Acute (3) Dizziness Status: Acute (4) Elevated troponin Status: Acute (5) Hypokalemia Status: Acute (6) Hypomagnesemia Status: Acute (7) Hypotension Status: Acute (8) PNA (pneumonia) Status: Acute (9) Rapid atrial fibrillation Status: Acute (10) Severe anemia Status: Acute (11) Supratherapeutic INR Status: Acute (12) Weakness Status: Acute Past Medical History: Duodenal ulcer, Increased alcohol intake, AFIB, cardiomyopathy, GERD, HTN, Anxiety/depression, NSTEMI, new systolic heart failure, multifactorial encephalopathy Past Surgical History: EGD liver biopsy Family History Cancer Hypertension Social History Smoking Status: Current Every Day Smoker Alcohol Use: heavy Drug Use: none Marital Status: Housing Status: lives with significant other Occupation Status: employed Allergies Coded Allergies: No Known Allergies (Verified , 03/31/17) Current Medications Home Meds and Scripts Medications Dose Route/Sig Max Daily Dose Days Date Category Coreg (Carvedilol) 6.25 Mg Tab 9.375 Mg PO BID 11/10/17 Reported Mag-Ox (Magnesium Oxide) 400 Mg Tab 400 Mg PO BID 11/10/17 Reported Jantoven (Warfarin Sodium) 4 Mg Tab 4 Mg PO DAILY 11/10/17 Reported Vitamin B-1 (Thiamine HCl) 100 Mg Tab 100 Mg PO QAM 11/10/17 Reported Folvite (Folic Acid) 1 Mg Tab 1 Mg PO DAILY 11/10/17 Reported Digoxin 0.125 Mg Tab 0.125 Mg PO DAILY 11/10/17 Reported Aspirin Chewable (Aspirin) 81 Mg Chew 81 Mg PO DAILY 11/10/17 Reported Phospha 250 Neutral (Pot Phosphate Monobasic W/ Sod) 1 Tab Tab 1 Tab PO DAILY 09/01/17 Reported Therems (Multiple Vitamin) 1 Tab Tab 05/23/17 Reported Carafate (Sucralfate) 1 Gm Tab 1 Gm PO QID 30 10/09/16 Reported Lexapro (Escitalopram Oxalate) 10 Mg Tab 10 Mg PO DAILY 10/06/16 Reported Lipitor (Atorvastatin Calcium) 40 Mg Tab 40 Mg PO QAM 10/06/16 Reported Omeprazole 20 Mg Tab 20 Mg PO BID 10/06/16 Reported Review of Systems Constitutional: No fever, No chills Respiratory: No cough, No shortness of breath Cardiac: No chest pain, No edema Abdomen: No pain, No nausea, No vomiting, No diarrhea, No constipation, No GI bleeding Physical Exam Date Time Temp Pulse Resp B/P (MAP) Pulse Ox O2 Delivery O2 Flow Rate FiO2 11/10/17 15:14 36.7 119 20 81/54 90 Room Air 11/10/17 15:00 36.7 114 20 103/66 11/10/17 14:45 36.7 130 20 112/95 11/10/17 14:35 36.7 119 20 81/54 11/10/17 12:46 36.7 118 20 91/39 90 11/10/17 12:31 135 11/10/17 12:30 36.3 134 24 91/39 100 11/10/17 12:19 36.7 125 24 69/54 100 11/10/17 12:07 114 26 80/58 100 Room Air 11/10/17 11:54 36.7 110 22 76/58 95 11/10/17 10:35 127 24 110/61 94 Room Air 11/10/17 09:34 95 Room Air 11/10/17 09:34 36.5 133 26 114/77 95 Room Air 11/10/17 09:21 128 General Appearance: + mild distress (pt is confused, in bed, saying she wants to go home, call her mother, needs to leave) Eyes: PERRL ENT: hearing grossly normal, + pertinent finding (poor dentition) Neck: supple, trachea midline Respiratory/Chest: lungs clear, normal breath sounds, no respiratory distress, no accessory muscle use Cardiovascular: regular rate, rhythm, no edema, no gallop Abdomen: normal bowel sounds, non tender, soft, no organomegaly Neurologic/Psych: alert, + pertinent finding (oriented to person only ) Skin: normal color, no jaundice, warm/dry, no rash Laboratory Results Last 24 Hours Test 11/10/17 09:30 11/10/17 09:58 11/10/17 10:00 11/10/17 11:42 Urine Color YELLOW Urine Appearance CLEAR Urine pH 5.5 Urine Specific [place] 1.016 Urine Protein NEG Urine Glucose (UA) NEG Urine Ketones TRACE Urine Occult Blood NEG Urine Nitrite NEG Urine Bilirubin NEG Urine Urobilinogen NEG Urine Leukocyte Esterase NEG White Blood Count 9.34 K/uL Red Blood Count 1.47 M/uL Hemoglobin 3.5 g/dL Hematocrit 11.4 % Mean Corpuscular Volume 77.6 fL Mean Corpuscular Hemoglobin 23.8 pg Mean Corpuscular Hemoglobin Concent 30.7 g/dl Platelet Count 246 K/uL Neutrophils (%) (Auto) 82.9 % Lymphocytes (%) (Auto) 6.6 % Monocytes (%) (Auto) 8.2 % Eosinophils (%) (Auto) 1.6 % Basophils (%) (Auto) 0.1 % Neutrophils # (Auto) 7.73 K/uL Lymphocytes # (Auto) 0.62 K/uL Monocytes # (Auto) 0.77 K/uL Eosinophils # (Auto) 0.15 K/uL Basophils # (Auto) 0.01 K/uL Immature Granulocyte % (Auto) 0.6 % Immature Granulocyte # (Auto) 0.06 K/uL Nucleated RBC Absolute Count (auto) 0.02 K/uL Nucleated Red Blood Cells % 0.2 % Polychromasia 1+ Hypochromasia PRESENT Prothrombin Time > 100.0 SECONDS Prothromb Time International Ratio > 10.0 Activated Partial Thromboplast Time 186.5 SECONDS Partial Thromboplastin Ratio 7.0 Venous Blood pH 7.44 Sodium Level 139 mmol/L Potassium Level 4.7 mmol/L Chloride Level 110 mmol/L Carbon Dioxide Level 21 mmol/L Anion Gap 9.0 mmol/L Blood Urea Nitrogen 27 mg/dl Creatinine 1.43 mg/dl Est Creatinine Clear Calc Drug Dose 41.2 ml/min Estimated GFR () 45.1 Estimated GFR (Non- 38.9 BUN/Creatinine Ratio 18.5 Random Glucose 116 mg/dl Lactic Acid Level 1.4 mmol/L Calcium Level 8.1 mg/dl Magnesium Level 2.5 mg/dl Total Bilirubin 0.9 mg/dl Direct Bilirubin 0.3 mg/dl Aspartate Amino Transf (AST/SGOT) 32 U/L Alanine Aminotransferase (ALT/SGPT) 22 U/L Alkaline Phosphatase 110 U/L Ammonia < 10.0 umol/L Total Creatine Kinase 411 U/L Troponin I < 0.015 ng/ml Pro-B-Type Natriuretic Peptide 3691 pg/ml Total Protein 5.9 gm/dl Albumin 2.9 gm/dl Lipase 65 U/L Influenza Type A Antigen Neg for Influ A Influenza Type B Antigen Neg for Influ B Ethyl Alcohol mg/dL < 3.0 mg/dl Test 11/10/17 15:28 Impression Patient is a 61 year old female with numerous medical comorbidities who is noncompliant with her medication regimen who was admitted, Coumadin toxicity, INR > 10 and anemia w/ HGB 3.5. Pt is a poor historian but denies evidence of GI blood loss prior to admission. No GI blood loss since arrival. She has been having frequent falls, most recently fell w/ large hematoma covering her back. Baseline HGB 10. 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 Recent liver biopsy and imaging without evidence of liver cirrhosis. Differentials: Obscure GIB vs anemia secondary to malnutrition vs anemia secondary to large hematoma vs other Patient is afebrile, tachycardic and hypotensive. No evidence of leukocytosis, HGB 3.5, HCT 11 w/ normal platelets. INR > 10. LFTs normal. Ammonia non- elevated. Bun 27, PROJECT PRODUCTION ENGINEER 1.4 Plan - No role for urgent endoscopic evaluation - Continue to monitor for S/S of GI blood loss - Hold Coumadin - Reverse INR - Trend H&H - Transfuse PRN - PO PPI prophylaxis - Can preform EGD/Colonoscopy electively as an outpatient. - GI will follow along. Please call with any acute changes, questions or concerns I saw and evaluated the patient with Ms Aguayomarieflashodette. We are consulted for evaluation of anemia. Of note the patient was brought in because she had fallen at home. She was found to have a significant decline in her hemoglobin and hematocrit without evidence of gross gastrointestinal bleeding. Of note her CT does show several large hematomas which likely accounts for her recent Campbell and hematocrit. The patient is unable to give any historical information this afternoon. We did review the patient's record at [facility] and [facility]. The patient did have a prior evaluation for liver disease which included a transjugular liver biopsy. This was significant for portal pressures which were not consistent with portal hypertension. Furthermore the patient had a liver biopsy performed on 02/23/17 which showed normal-appearing liver parenchyma without evidence of fibrosis. There was some evidence of ischemic injury which was thought to be related to a prior episode of hypotension. PE: confused / NAD Poor Dentition No scleral icterus Impression: Patient with history of altered mental status which appears to be unrelated to liver disease as the patient does have normal liver on a recent liver biopsy. The patient also has anemia which appears to be related to the large hematomas as noted on her CT scan. At this time there is no evidence of gross gastrointestinal bleeding. Would suggest that you consider correction of the INR as it was greater than 10 today. Please call with any questions or concerns during the remainder of the admission. We are happy to render assistance on an as-needed basis for this patient.
[2017-11-10] MEDS: CARVEDILOL 6.25 MG TAB PO SCH ×2 (17:16→23:13)
[2017-11-10] MEDS: RIFAXIMIN TAB 550 MG TAB PO SCH (23:12)
[2017-11-11] VITALS (14 sets, daily range): BP systolic 123–146; BP diastolic 71–97; PULSE 88–139; TEMP 36.5–37; O2SAT 93–99
[2017-11-11 06:28] LABS: ALBUMIN 2.6 gm/dl (3.4-5.0); CALCIUM 7.7 mg/dl (8.5-10.1); CREATININE 1.05 mg/dl (0.60-1.20); HEMATOCRIT 20.1 % (37-47); HEMOGLOBIN 6.7 g/dL (12.0-16.0); MEAN CELL VOLUME 82.7 fL (80-100); MEAN CORPUSCULAR HEMOGLOBIN 27.6 pg (25-34); MEAN CORPUSCULAR HGB CONC 33.3 g/dl (32-36); MEAN PLATELET VOLUME 8.4 fL (7.4-10.4); PLATELET COUNT 212 K/uL (130-400); RED CELL DISTRIBUTION WIDTH CV 19.8 % (11.5-14.5); RED CELL DISTRIBUTION WIDTH SD 57.7 fL (36.4-46.3); WHITE BLOOD COUNT 7.54 K/uL (4.8-10.8)
[2017-11-11 06:32] LABS: BASO % 0.1 %; BASO ABS # 0.01 K/uL (0-0.2); EOS % 1.9 %; EOS ABS # 0.14 K/uL (0-0.5); IG# 0.01 K/uL (0.00-0.02); LYMPH % 10.3 %; LYMPH ABS # 0.78 K/uL (1.2-3.4); MONO % 7.4 %; MONO ABS # 0.56 K/uL (0.11-0.59); NEUT % 80.2 %; NEUT ABS # 6.04 K/uL (1.4-6.5)
[2017-11-11 06:44] LABS: PHOSPHORUS 3.1 mg/dl (2.5-4.9)
--- NOTE | 2017-11-11 07:18 | DIAGNOSTIC IMAGING REPORT ---
CHEST ONE VIEW PORTABLE CLINICAL HISTORY: AMS dyspnea COMPARISON STUDY: 11/10/2017 FINDINGS: Moderate cardiomegaly. Persistent prominence of pulmonary vasculature. Diaphragms smooth. IMPRESSION: Stable pulmonary vascular congestion. The above report was generated using voice recognition software. It may contain grammatical, syntax or spelling errors. Electronically signed by: Sundar Benson M.D. 11/11/2017 7:17 AM Dictated Date/Time: 11/11/2017 7:16 AM
[2017-11-11] MEDS: RIFAXIMIN TAB 550 MG TAB PO SCH ×2 (07:43→20:24)
[2017-11-11] MEDS: CARVEDILOL 6.25 MG TAB PO SCH (07:43)
[2017-11-11] MEDS: THIAMINE HCL INJ 100 MG in SYRINGE 9 ML IV SCH (07:46)
--- NOTE | 2017-11-11 10:03 | Critical Care Progress Note ---
Critical Care Progress Note Date of Service Nov 11, 2017. ICU Day ICU Day Number: 2 Attending Subjective He is awake and alert and more appropriate. No respiratory distress. No target pain AM today. She slept well and is hungry. Objective Gen--much improved Vitals--afeb/VSS HEENT-no acute changes. Pulmonary--exchange is adequate Cardio--rate is better. Perfusion is good GI--functional and nontender Neuro--no changes. Musculo--bruising unchanged. Assessment & Plan Profound anemia secondary to GI loss and high INR. 1. Heme--would not transfuse additional blood--replace iron 2. Cardio--digoxin and Coreg--may need some diuretic. Anticoagulation on hold 3. GI--consult evaluation at some point 4. Neuro--no new focal changes. 5. Musculo--chronic issues with the right arm--general support 6. Dispo--ok to leave the ICU Data Medications: Current Inpatient Medications Medications (Trade) Dose Ordered Sig/Debbie Route Start Time Stop Time Status Last Admin Dose Admin Ioversol (Optiray 320) 100 ml UD PRN IV 11/10/17 11:00 11/14/17 10:59 Acetaminophen (Tylenol Tab) 650 mg Q4H PRN PO 11/10/17 12:30 12/10/17 12:29 Miscellaneous Information (Icu Protocol For Hyperglycemia) 1 ea PRN PRN N/A 11/10/17 12:30 11/12/17 12:29 Quetiapine Fumarate (seroQUEL TAB) 25 mg Q4 PRN PO 11/10/17 14:15 12/10/17 14:14 11/10/17 15:52 25 MG Thiamine HCl 100 mg/Syringe 10 ml @ 2 mls/min DAILY@0900 IV 11/11/17 09:00 12/11/17 08:59 11/11/17 07:46 2 MLS/MIN Rifaximin (Xifaxan Tab) 550 mg BID PO 11/10/17 21:00 12/10/17 20:59 11/11/17 07:43 550 MG Carvedilol (Coreg Tab) 6.25 mg BID PO 11/10/17 21:00 12/10/17 20:59 11/11/17 07:43 6.25 MG Digoxin (Lanoxin Tab) 0.125 mg DAILY@16 PO 11/11/17 16:00 12/11/17 15:59 Vital Signs: Date Time Temp Pulse Resp B/P (MAP) Pulse Ox O2 Delivery O2 Flow Rate FiO2 11/11/17 09:00 118 19 11/11/17 08:00 99 23 11/11/17 08:00 94 Room Air 11/11/17 07:32 120 21 131/86 (101) 94 Room Air 11/11/17 07:00 108 23 11/11/17 06:00 37.0 103 20 132/71 (91) 97 Room Air 11/11/17 04:00 88 15 Room Air 11/11/17 04:00 93 Room Air 11/11/17 03:00 89 25 Room Air 11/11/17 02:00 96 21 Room Air 11/11/17 01:00 108 23 11/11/17 00:00 36.9 101 18 Room Air 11/10/17 23:59 93 Room Air 11/10/17 23:12 103 28 141/84 (103) 11/10/17 23:00 96 22 11/10/17 22:00 98 19 Room Air 11/10/17 21:13 110 24 119/62 (81) 11/10/17 21:00 101 25 11/10/17 20:00 92 Room Air 11/10/17 20:00 36.9 134 35 Room Air 11/10/17 19:24 125 119/62 (81) 11/10/17 19:00 114 11/10/17 18:15 139 94/77 (83) 98 11/10/17 18:09 140 94/89 (91) 85 11/10/17 18:01 36.8 128 57/45 (49) 90 11/10/17 17:58 109 130/83 (99) 78 18 17:31 119 17 104/90 (95) 11/10/17 17:01 36.9 135 20 138/81 (100) 94 Nasal Cannula 2.0 11/10/17 16:32 36.8 131 20 104/77 (86) 91 Room Air 11/10/17 16:05 97 Room Air 11/10/17 16:01 36.7 131 27 119/81 (94) 100 Room Air 11/10/17 15:41 36.7 147 22 116/77 (90) 95 Room Air 11/10/17 15:16 36.7 129 21 103/66 (78) Room Air 11/10/17 15:14 36.7 119 20 81/54 90 Room Air 11/10/17 15:00 36.7 114 20 103/66 11/10/17 14:45 36.7 130 20 112/95 11/10/17 14:35 36.7 119 20 81/54 11/10/17 12:46 36.7 118 20 91/39 90 11/10/17 12:31 135 11/10/17 12:30 36.3 134 24 91/39 100 11/10/17 12:19 36.7 125 24 69/54 100 11/10/17 12:07 114 26 80/58 100 Room Air 11/10/17 11:54 36.7 110 22 76/58 95 11/10/17 10:35 127 24 110/61 94 Room Air Laboratory Results: Last 24 Hours Test 11/10/17 10:00 11/10/17 11:42 11/10/17 16:21 11/10/17 17:14 Influenza Type A Antigen Neg for Influ A Influenza Type B Antigen Neg for Influ B Ethyl Alcohol mg/dL < 3.0 mg/dl Digoxin Level 1.1 ng/ml Bedside Glucose 130 mg/dl Test 11/10/17 20:03 11/10/17 23:19 11/11/17 05:52 11/11/17 05:54 Troponin I < 0.015 ng/ml 0.015 ng/ml Bedside Glucose 121 mg/dl 108 mg/dl White Blood Count 7.54 K/uL Red Blood Count 2.43 M/uL Hemoglobin 6.7 g/dL Hematocrit 20.1 % Mean Corpuscular Volume 82.7 fL Mean Corpuscular Hemoglobin 27.6 pg Mean Corpuscular Hemoglobin Concent 33.3 g/dl Platelet Count 212 K/uL Mean Platelet Volume 8.4 fL Neutrophils (%) (Auto) 80.2 % Lymphocytes (%) (Auto) 10.3 % Monocytes (%) (Auto) 7.4 % Eosinophils (%) (Auto) 1.9 % Basophils (%) (Auto) 0.1 % Neutrophils # (Auto) 6.04 K/uL Lymphocytes # (Auto) 0.78 K/uL Monocytes # (Auto) 0.56 K/uL Eosinophils # (Auto) 0.14 K/uL Basophils # (Auto) 0.01 K/uL RDW Standard Deviation 57.7 fL RDW Coefficient of Variation 19.8 % Immature Granulocyte % (Auto) 0.1 % Immature Granulocyte # (Auto) 0.01 K/uL Anisocytosis PRESENT Prothrombin Time 11.0 SECONDS Prothromb Time International Ratio 1.0 Sodium Level 141 mmol/L Potassium Level 4.0 mmol/L Chloride Level 112 mmol/L Carbon Dioxide Level 21 mmol/L Anion Gap 8.0 mmol/L Blood Urea Nitrogen 22 mg/dl Creatinine 1.05 mg/dl Est Creatinine Clear Calc Drug Dose 58.5 ml/min Estimated GFR () 65.5 Estimated GFR (Non- 56.5 BUN/Creatinine Ratio 21.3 Random Glucose 91 mg/dl Calcium Level 7.7 mg/dl Phosphorus Level 3.1 mg/dl Magnesium Level 2.2 mg/dl Total Bilirubin 1.3 mg/dl Direct Bilirubin 0.4 mg/dl Aspartate Amino Transf (AST/SGOT) 34 U/L Alanine Aminotransferase (ALT/SGPT) 24 U/L Alkaline Phosphatase 112 U/L Total Protein 6.0 gm/dl Albumin 2.6 gm/dl
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
[2017-11-11] MEDS ORDERED: NICOTINE 21 MG/24 HR TDSY TD PRN (12:00)
--- NOTE | 2017-11-11 12:56 | DIAGNOSTIC IMAGING REPORT ---
CAROTID DOPPLER NECK ART HISTORY: Mental status change stenosis noted on CT COMPARISON: None. TECHNIQUE: Real-time, grayscale, and color Doppler sonography of the carotid arteries was performed. Imaging reviewed in the transverse and longitudinal planes. All measurements were calculated based on NASCET criteria. FINDINGS: Antegrade flow is seen in the bilateral vertebral arteries. The brachial pressures are hemodynamically similar. Moderate plaque formation bilaterally The peak systolic velocity within the right ICA is page 5. The right systolic ratio is 0.9. The peak systolic velocity within the left ICA is 78. The left systolic ratio is 1.6. IMPRESSION: No hemodynamically significant stenosis seen within the carotid arteries. Moderate plaque formation bilaterally. The CT finding appears to be artifactual based on this exam The above report was generated using voice recognition software. It may contain grammatical, syntax or spelling errors. Electronically signed by: Sundar Benson M.D. 11/11/2017 12:54 PM Dictated Date/Time: 11/11/2017 12:52 PM
[2017-11-11] MEDS ORDERED: FUROSEMIDE 20 MG TAB PO STA (13:59)
[2017-11-11 14:42] LABS: HEMOGLOBIN 7.7 g/dL (12.0-16.0)
[2017-11-11] MEDS: DIGOXIN 0.125 MG TAB PO SCH (17:07)
[2017-11-11] MEDS: FERROUS SULFATE 325 MG TAB PO SCH (17:07)
[2017-11-11] MEDS: CARVEDILOL 3.125 MG TAB PO SCH (20:24)
[2017-11-12 00:30] VITALS: BP 118/71; PULSE 95; TEMP 37; O2SAT 99
[2017-11-12 07:08] LABS: BASO % 0.3 %; BASO ABS # 0.02 K/uL (0-0.2); EOS % 3.9 %; EOS ABS # 0.23 K/uL (0-0.5); HEMATOCRIT 23.5 % (37-47); HEMOGLOBIN 7.7 g/dL (12.0-16.0); IG# 0.03 K/uL (0.00-0.02); LYMPH % 12.6 %; LYMPH ABS # 0.74 K/uL (1.2-3.4); MEAN CELL VOLUME 84.8 fL (80-100); MEAN CORPUSCULAR HEMOGLOBIN 27.8 pg (25-34); MEAN CORPUSCULAR HGB CONC 32.8 g/dl (32-36); MEAN PLATELET VOLUME 8.5 fL (7.4-10.4); MONO % 8.3 %; MONO ABS # 0.49 K/uL (0.11-0.59); NEUT % 74.4 %; NEUT ABS # 4.36 K/uL (1.4-6.5); PLATELET COUNT 226 K/uL (130-400); RED CELL DISTRIBUTION WIDTH CV 20.8 % (11.5-14.5); RED CELL DISTRIBUTION WIDTH SD 61.2 fL (36.4-46.3); WHITE BLOOD COUNT 5.87 K/uL (4.8-10.8)
[2017-11-12 07:17] LABS: INR 1.6 (0.9-1.1)
--- NOTE | 2017-11-12 07:34 | DIAGNOSTIC IMAGING REPORT ---
CHEST ONE VIEW PORTABLE HISTORY: 61 years-old Female AMS acute altered mental status COMPARISON: Chest radiograph 11/11/2017 TECHNIQUE: Portable AP view of the chest FINDINGS: Cardiac silhouette is moderately enlarged, unchanged. Atherosclerosis of the aorta. Mild pulmonary vascular congestion without overt pulmonary edema. There are subsegmental bibasilar opacities, slightly worsened on the right from comparison. There is no pneumothorax, or large pleural effusion. Partially imaged hardware of the right humerus. The bones appear mildly demineralized. IMPRESSION: 1. Cardiomegaly with mild pulmonary vascular congestion. 2. Subsegmental bibasilar opacities, mildly worsened on the right suggest atelectasis or less likely pneumonitis. The above report was generated using voice recognition software. It may contain grammatical, syntax or spelling errors. Electronically signed by: Serjio Corbin M.D. 11/12/2017 7:33 AM Dictated Date/Time: 11/12/2017 7:31 AM
[2017-11-12 07:35] LABS: ALBUMIN 2.7 gm/dl (3.4-5.0); CALCIUM 8.1 mg/dl (8.5-10.1); CREATININE 0.87 mg/dl (0.60-1.20); POTASSIUM 3.6 mmol/L (3.5-5.1)
[2017-11-12 07:38] LABS: TOTAL PROTEIN 6.6 gm/dl (6.4-8.2)
[2017-11-12 08:01] VITALS: BP 128/78; PULSE 72; TEMP 36.9; O2SAT 96
[2017-11-12] MEDS: RIFAXIMIN TAB 550 MG TAB PO SCH (08:05)
[2017-11-12] MEDS: FERROUS SULFATE 325 MG TAB PO SCH ×2 (08:05→17:33)
[2017-11-12] MEDS: CYANOCOBALAMIN 500 MCG TAB (VIT B-12) PO SCH (08:06)
[2017-11-12] MEDS: CARVEDILOL 3.125 MG TAB PO SCH ×2 (08:07→20:00)
[2017-11-12] MEDS: MULTIVITAMIN TAB PO SCH (08:08)
[2017-11-12] MEDS: THIAMINE HCL INJ 100 MG in SYRINGE 9 ML IV SCH (08:08)
[2017-11-12 10:47] VITALS: BP 117/88; PULSE 128; O2SAT 95
--- NOTE | 2017-11-12 13:42 | ORTHOPEDIC CONSULTATION ---
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 HISTORY OF PRESENT ILLNESS: This is a 61-year-old female who was admitted to the hospital with multiple falls and acute mental status, worsening. She was originally admitted to the ICU, currently she has been transferred up to the floor. She notes over the past several months, her arm began hurting her with occasional ache with activity. She states it was initially feeling fine, after surgery she has a progressive deformity in the right arm over the past several months. Surgical treatment was performed by Dr. Paez in 2009 for ORIF of a humerus fracture. This was treated with a plate. She followed up in the short term, but not in the long-term. She did have an ankle fracture fixed which is healing uneventfully as well recently. PAST MEDICAL HISTORY: Includes history of alcohol dependence and withdrawal, history of encephalopathy, hyperlipidemia, hyponatremia, non-ST elevated myocardial infarction, atrial fibrillation and GERD. ALLERGIES: No known drug allergies. SOCIAL HISTORY: He smokes approximately half a pack a day, has quit alcohol. He is still currently smoking. MEDICATIONS: Aspirin, Lipitor, Coreg, digoxin, Lexapro, magnesium oxide, folic acid, omeprazole, Carafate, vitamin B and Coumadin. PHYSICAL EXAMINATION: RIGHT UPPER EXTREMITY: Right upper extremity is grossly neurologically intact. Radial nerve is intact to function. She has 5/5 strength in extension of the wrist and digits. She has obvious deformity in the right mid humerus region. She has well-healed surgical incision. She has no warmth and no erythema at all and nothing to suggest infection. She has full range of motion of the right elbow. ASSESSMENT: A 61-year-old female admitted to [facility] with: 1. Acute mental status changes. 2. Severe anemia, improving. 3. Right distal humerus nonunion. PLAN: I discussed treatment options for her elbow. If surgical treatment were contemplated, this will require revision ORIF with removal of previous plate, possible bone grafting. At this point in time, given her acute mental status change, she is not a candidate for surgery. Surgery also is contraindicated given that her hemoglobin was 3.5 and hematocrit was 11.4, on admission. Hemoglobin today is 7.7. I do not see any signs of infection grossly, although this could be considered for reason for nonunion. Of note, she does smoke and this could also contribute to nonunion. At this point, she will follow up with Dr. Paez in the office as an outpatient to discuss whether further surgical treatment would be indicated. Radiographic evaluation AP and lateral of the humerus on 11/10/2017 does show humerus nonunion, hypertrophic callus is seen, loosening of the hardware is seen. No breakage of the hardware.
[2017-11-12 15:32] VITALS: BP 127/72; PULSE 107; TEMP 37.1; O2SAT 96
[2017-11-12] MEDS ORDERED: THIAMINE HCL 100 MG TAB PO ONE (17:08)
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
[2017-11-12] MEDS: DIGOXIN 0.125 MG TAB PO SCH (17:33)
[2017-11-12 20:54] VITALS: BP 116/78; PULSE 120
[2017-11-12 23:08] VITALS: BP 117/70; PULSE 105; TEMP 36.7; O2SAT 99
[2017-11-13 06:23] LABS: BASO % 0.2 %; BASO ABS # 0.01 K/uL (0-0.2); EOS % 4.7 %; EOS ABS # 0.27 K/uL (0-0.5); HEMATOCRIT 21.8 % (37-47); IG# 0.03 K/uL (0.00-0.02); LYMPH ABS # 0.81 K/uL (1.2-3.4); MEAN CELL VOLUME 86.2 fL (80-100); MEAN CORPUSCULAR HEMOGLOBIN 27.7 pg (25-34); MEAN CORPUSCULAR HGB CONC 32.1 g/dl (32-36); MEAN PLATELET VOLUME 8.5 fL (7.4-10.4); MONO % 8.1 %; MONO ABS # 0.47 K/uL (0.11-0.59); NEUT % 72.5 %; NEUT ABS # 4.19 K/uL (1.4-6.5); NUCLEATED RED BLOOD CELL ABS 0.05 K/uL (0-0); PLATELET COUNT 219 K/uL (130-400); RED CELL DISTRIBUTION WIDTH CV 21.3 % (11.5-14.5); WHITE BLOOD COUNT 5.78 K/uL (4.8-10.8)
[2017-11-13 06:34] LABS: INR 1.8 (0.9-1.1)
[2017-11-13 07:02] LABS: ALBUMIN 2.7 gm/dl (3.4-5.0); CALCIUM 8.3 mg/dl (8.5-10.1); CREATININE 0.75 mg/dl (0.60-1.20); POTASSIUM 3.9 mmol/L (3.5-5.1)
[2017-11-13 07:05] LABS: PHOSPHORUS 3.2 mg/dl (2.5-4.9); TOTAL PROTEIN 6.2 gm/dl (6.4-8.2)
[2017-11-13 07:14] VITALS: BP 119/79; PULSE 112; TEMP 37; O2SAT 98
[2017-11-13] MEDS ORDERED: MAGNESIUM OXIDE 400 MG TAB PO ONE (08:27)
[2017-11-13] MEDS: MULTIVITAMIN TAB PO SCH (08:40)
[2017-11-13] MEDS: FERROUS SULFATE 325 MG TAB PO SCH ×2 (08:40→17:09)
[2017-11-13] MEDS: THIAMINE HCL 100 MG TAB PO SCH (08:41)
[2017-11-13] MEDS: ESCITALOPRAM OXALATE 10 MG TAB PO SCH (08:41)
[2017-11-13] MEDS: CYANOCOBALAMIN 500 MCG TAB (VIT B-12) PO SCH (08:41)
[2017-11-13] MEDS: CARVEDILOL 3.125 MG TAB PO SCH ×2 (08:41→20:14)
[2017-11-13] MEDS: THIAMINE HCL INJ 100 MG in SYRINGE 9 ML IV SCH (08:41)
[2017-11-13] MEDS ORDERED: ONDANSETRON INJ 2 MG/ML 2 ML VIAL IV STA (08:50)
[2017-11-13 15:32] VITALS: BP 133/83; PULSE 93; TEMP 37.4; O2SAT 94
[2017-11-13 16:00] VITALS: O2SAT 94
[2017-11-13] MEDS: DIGOXIN 0.125 MG TAB PO SCH (17:09)
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
[2017-11-13 20:12] VITALS: BP 126/72; PULSE 100
[2017-11-13 23:38] VITALS: BP 152/97; PULSE 99; TEMP 36.9; O2SAT 96
[2017-11-14 06:31] LABS: BASO % 0.5 %; BASO ABS # 0.02 K/uL (0-0.2); EOS % 5.4 %; EOS ABS # 0.23 K/uL (0-0.5); HEMATOCRIT 24.4 % (37-47); HEMOGLOBIN 7.6 g/dL (12.0-16.0); IG# 0.01 K/uL (0.00-0.02); LYMPH % 19.4 %; LYMPH ABS # 0.83 K/uL (1.2-3.4); MEAN CELL VOLUME 88.1 fL (80-100); MEAN CORPUSCULAR HEMOGLOBIN 27.4 pg (25-34); MEAN CORPUSCULAR HGB CONC 31.1 g/dl (32-36); MEAN PLATELET VOLUME 8.3 fL (7.4-10.4); MONO % 10.3 %; MONO ABS # 0.44 K/uL (0.11-0.59); NEUT % 64.2 %; NEUT ABS # 2.74 K/uL (1.4-6.5); PLATELET COUNT 228 K/uL (130-400); RED CELL DISTRIBUTION WIDTH CV 21.8 % (11.5-14.5); RED CELL DISTRIBUTION WIDTH SD 65.5 fL (36.4-46.3); WHITE BLOOD COUNT 4.27 K/uL (4.8-10.8)
[2017-11-14 06:44] LABS: INR 1.6 (0.9-1.1)
[2017-11-14 07:09] LABS: ALBUMIN 2.7 gm/dl (3.4-5.0); CALCIUM 8.6 mg/dl (8.5-10.1); CREATININE 0.68 mg/dl (0.60-1.20); POTASSIUM 3.8 mmol/L (3.5-5.1)
[2017-11-14 07:12] LABS: PHOSPHORUS 3.6 mg/dl (2.5-4.9); TOTAL PROTEIN 6.4 gm/dl (6.4-8.2)
[2017-11-14 07:23] VITALS: BP 138/75; PULSE 70; TEMP 36.7; O2SAT 95
[2017-11-14] MEDS: MULTIVITAMIN TAB PO SCH (07:56)
[2017-11-14] MEDS: CARVEDILOL 3.125 MG TAB PO SCH (07:56)
[2017-11-14] MEDS: CYANOCOBALAMIN 500 MCG TAB (VIT B-12) PO SCH (07:57)
[2017-11-14] MEDS: THIAMINE HCL INJ 100 MG in SYRINGE 9 ML IV SCH (07:57)
[2017-11-14] MEDS ORDERED: ATORVASTATIN 40 MG TAB PO SCH (08:00)
[2017-11-14] MEDS: THIAMINE HCL 100 MG TAB PO SCH (08:26)
[2017-11-14] MEDS: FERROUS SULFATE 325 MG TAB PO SCH (08:27)
[2017-11-14] MEDS: ESCITALOPRAM OXALATE 10 MG TAB PO SCH (08:27)
[2017-11-14] MEDS ORDERED: XRL15 PO (12:14)
--- NOTE | 2017-11-14 12:31 | Discharge Instructions ---
Discharge Instructions Date of Service Nov 14, 2017. Admission Reason for Admission: AMS Discharge Discharge Diagnosis / Problem: Severe anemia, supratherapeutic INR Discharge Goals Goal(s): Decrease discomfort, Improve function Activity Recommendations Activity Limitations: resume your previous activity . Instructions / Follow-Up Instructions / Follow-Up You were admitted with severe anemia and confusion. You received 3 units of blood transfusion and your hemoglobin has improved. Severe anemia: - Please continue to use ferrous sulfate 325 mg twice daily . It is preferable to use it with orange juice or vitamin C which will help with better absorption. - Please follow up with your family doctor and recheck your CBC in about a week Atrial fibrillation/CAD/cardiomyopathy/hypertension - Continue Coreg 9.375 mg twice daily - Continue digoxin - STOP using Coumadin instead you have been switched to Xarelto which is one of the newer 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 - Please use Xarelto 15 mg daily Chronic alcohol abuse/ Wernicke's: -Continue supplementation with thiamine and folic acid Nonunion of right humerus fracture: -X-ray was suggestive of nonunion across mid diaphyseal right humerus fracture with findings highly suspicious for infection or loosening of the internal fixation hardware -Please follow up with orthopedics as an outpatient with Dr. Paez 4 mm left upper lobe pulmonary nodule High risk patients: Consider to follow up with your family doctor to get an optional CT at 12 months Hyperlipidemia -Continue Lipitor Mood disorder: Lexapro 10 MG PO DAILY Follow up with your family doctor in about a week and get CBC before the visit Follow up with Orthopedics/Dr. Paez Current Hospital Diet Patient's current hospital diet: Regular Diet Discharge Diet Recommended Diet: Regular Diet Pending Studies Studies pending at discharge: no Medical Emergencies . Who to Call and When: Medical Emergencies: If at any time you feel your situation is an emergency, please call 911 immediately. . Non-Emergent Contact Non-Emergency issues call your: Primary Care Provider . . "Provider Documentation" section prepared by Dee Dee Page. .
[2017-11-14 14:02] VITALS: BP 138/75; PULSE 70; TEMP 36.7; O2SAT 95
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
== END 2017-11-14 15:20 | disposition home or self-care (01) | DRG 948 ==
LOC: EDBD 09:11 → C.EDA 09:12 → C.MSICU 12:20 → ENRESERV 12:25 → C.MSICU 17:42 → ENRESERV 11-11 10:00 → C.4E 11-11 11:23
PROVIDERS: ADMIT Family Medicine; ATTEND Family Medicine
DX: R41.82 Altered mental status, unspecified (principal); D68.9 Coagulation defect, unspecified; I42.9 Cardiomyopathy, unspecified; K92.2 Gastrointestinal hemorrhage, unspecified; Z82.49 Family history of ischemic heart disease and other diseases of the circulatory system; Z72.89 Other problems related to lifestyle; Z79.82 Long term (current) use of aspirin; D64.9 Anemia, unspecified; K74.60 Unspecified cirrhosis of liver; F09 Unspecified mental disorder due to known physiological condition; R79.1 Abnormal coagulation profile

== ENCOUNTER 2017-11-16 12:52 | Emergency (ER) | payer OTHER ==
[~2017-11-16] VITALS: Ht 160 cm; Wt 74.0 kg
[~2017-11-16 12:52] MED LIST changes: -ASPCH81 NG; +ASPCH81X PO; +ATOR-24 PO; +CARV6.25 PO; -CMD5 PO; -CRG625 PO; -DIGO0.052 PO; +ESCI10TA17 PO; -FLV1 NG; +FOLI1TAB8 PO; +LNX125 PO; +MAGN400T6 PO; -MGNO400 PO; +OMEP20TA PO; +POTTAB2 PO; +SUCR1TAB29 PO; +THIA100T11 PO; -THM100 PO; +XRL15 PO
[2017-11-16 12:56] VITALS: TEMP 36.3; Ht 160 cm; Wt 74.0 kg
[2017-11-16] MEDS ORDERED: SODIUM CHLORIDE 0.9% 1000ML 1,000 ML IV STA (13:10)
--- NOTE | 2017-11-16 13:16 | EMERGENCY ROOM VISIT NOTE ---
History Report prepared by Lakeisha: Jayro Colbert Under the Supervision of: Dr. Harvey Coker D.O. First contact with patient: 13:00 Chief Complaint: OVERDOSE (ACCIDENTAL) Stated Complaint: OVERDOSE ON MEDS History of Present Illness The patient is a 61 year old female who presents to the Emergency Room with concerns over an accidental overdose of her daily medications that occurred earlier today. The patient presented with her Niece who is now taking over as the primary care-staff counselor for the patient. She was being taken care of by a home health nurse. The niece states that her mental status is altered at baseline and is sometimes confused. The niece calculated that she took 3 Xarelto, 3 Aspirin, 3 Lipitor, 3 Digoxin, 3 Folic Acid, 5 Magnesium Oxide, and 5 Omeprazole and 13 Carafate tablets. This happened as the patient's daughter gave her her morning medications. The patient then continued to take her evening mediations and the medications for the next day. She also took the entire bottle of Carafate tablets. The patient states that she does have a history alcoholism, but notes that she has been sober for over a year. The patient adamantly denies that she was trying to harm herself. She denies any recent falls, headache, vomiting, or shortness of breath. She was recently hospitalized for a poor hemoglobin level. Source of History: patient, family Onset: Earlier today Position: other (Ingestion) Quality: other (Accidental overdose) Timing: other (Overdose episode) Associated Symptoms: No chest pain, No SOB, No vomiting Review of Systems See HPI for pertinent positives & negatives. A total of 10 systems reviewed and were otherwise negative. Past Medical & Surgical Medical Problems: (1) Acute encephalopathy (2) Acute liver disease (3) Alcohol dependence (4) Alcohol withdrawal (5) Altered mental status (6) Dislocation of ankle joint (7) GERD (gastroesophageal reflux disease) (8) Hyperlipidemia (9) Hypernatremia (10) Hypotension (11) halfway (current) use of 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 (12) NSTEMI (non-ST elevated myocardial infarction) (13) Rapid atrial fibrillation (14) Trimalleolar fracture of left ankle (15) Trimalleolar fracture of right ankle Family History Cancer Hypertension Social History Smoking Status: Current Every Day Smoker Alcohol Use: heavy Drug Use: none Marital Status: Housing Status: lives with significant other Occupation Status: employed Current/Historical Medications Scheduled Aspirin (Aspirin Chewable), 81 MG PO DAILY Atorvastatin (Lipitor), 40 MG PO QAM Carvedilol (Coreg), 9.375 MG PO BID Digoxin (Digoxin), 0.125 MG PO DAILY Escitalopram (Lexapro), 10 MG PO DAILY Folic Acid (Folvite), 1 MG PO DAILY Magnesium Oxide (Mag-Ox), 400 MG PO BID Omeprazole (Omeprazole), 20 MG PO BID Pot Phosphate Monobasic W/ Sod (Phospha 250 Neutral), 1 TAB PO DAILY Rivaroxaban (Xarelto), 15 MG PO DAILY Sucralfate (Carafate), 1 GM PO QID Thiamine Hcl (Vitamin B-1), 100 MG PO QAM Miscellaneous Medications Multiple Vitamin (Therems) Allergies Coded Allergies: No Known Allergies (Verified , 03/31/17) Physical Exam Vital Signs Date Time Temp Pulse Resp B/P (MAP) Pulse Ox O2 Delivery O2 Flow Rate FiO2 11/16/17 16:45 87 16 146/83 95 Room Air 11/16/17 15:36 95 16 130/87 93 Room Air 11/16/17 14:31 110/69 11/16/17 14:22 116 18 98 Room Air 11/16/17 14:07 133/115 11/16/17 13:52 103 24 97 Room Air 11/16/17 13:36 115/72 11/16/17 13:23 122 20 114/73 100 Room Air 11/16/17 13:22 126 19 114/73 98 11/16/17 13:20 95 Room Air 11/16/17 13:06 132 11/16/17 12:56 36.3 122 20 120/84 98 Room Air Physical Exam GENERAL: Patient is awake, alert, and in no acute distress. Patient is resting comfortably and showing no signs of anxiety EYES: The conjunctivae are clear. The pupils are round and reactive. EARS, NOSE, MOUTH AND THROAT: The nose is without any evidence of any deformity. Mucous membranes are moist tongue is midline NECK: The neck is nontender and supple. RESPIRATORY: Normal respiratory effort is noted there is no evidence of wheezing rhonchi or rales CARDIOVASCULAR: Tachycardic rate and irregular rhythm noted there no murmurs rubs or gallops normal S1 normal S2 GASTROINTESTINAL: The abdomen is soft. Bowel sounds are present in all quadrants. Abdomen is nontender PELVIS: The Pelvis is stable. No tenderness to palpation is noted. BACK: No midline tenderness or or step-off noted range of motion in flexion extension as well as rotation no signs of muscle spasm noted MUSCULOSKELETAL/EXTREMITIES: There is no evidence of gross deformity full range of motion is noted in the hips and shoulders SKIN: There is no obvious evidence of any rash. There are no petechiae, pallor or cyanosis noted. NEUROLOGIC: Patient is awake alert and oriented x3 strength is symmetric patellar reflexes are 2+ bilaterally Medical Decision & Procedures ER Provider Diagnostic Interpretation: Radiology results as stated below per my review and radiologist interpretation: CHEST ONE VIEW PORTABLE CLINICAL HISTORY: Overdose COMPARISON STUDY: 11/12/2017 FINDINGS: The heart is enlarged. There is improving pulmonary vascular congestion. There is improving aeration of the lung bases. There is stable aortic tortuosity. There is no acute lobar consolidation. There is an internally fixated fracture the mid right humerus. There is evidence of fracture nonunion and hardware loosening. IMPRESSION: 1. Improving perivascular congestion 2. Internally fixated right mid humeral fracture. There is fracture nonunion and hardware loosening Electronically signed by: Kg Doran M.D. 11/16/2017 1:26 PM Dictated Date/Time: 11/16/2017 1:21 PM Laboratory Results 11/16/17 13:55 Red Blood Count 3.03, Mean Corpuscular Volume 89.4, Mean Corpuscular Hemoglobin 28.4, Mean Corpuscular Hemoglobin Concent 31.7, Mean Platelet Volume 8.8, Neutrophils (%) (Auto) 73.7, Lymphocytes (%) (Auto) 14.2, Monocytes (%) (Auto) 6.1, Eosinophils (%) (Auto) 5.2, Basophils (%) (Auto) 0.4, Neutrophils # (Auto) 4.90, Lymphocytes # (Auto) 0.95, Monocytes # (Auto) 0.41, Eosinophils # (Auto) 0.35, Basophils # (Auto) 0.03 11/16/17 13:55 Test 11/16/17 13:26 11/16/17 13:55 11/16/17 16:23 Venous Blood pH 7.41 (7.36-7.41) Venous Blood Partial Pressure CO2 45 mmHg (38.0-50.0) Venous Blood Partial Pressure O2 19 mmHg Venous Blood HCO3 28 mmol/L Venous Blood Oxygen Saturation < 60.0 % Venous Blood Base Excess 2.9 mEq/L White Blood Count 6.67 K/uL (4.8-10.8) Red Blood Count 3.03 M/uL (4.2-5.4) Hemoglobin 8.6 g/dL (12.0-16.0) Hematocrit 27.1 % (37-47) Mean Corpuscular Volume 89.4 fL (80-100) Mean Corpuscular Hemoglobin 28.4 pg (25-34) Mean Corpuscular Hemoglobin Concent 31.7 g/dl (32-36) Platelet Count 306 K/uL (130-400) Mean Platelet Volume 8.8 fL (7.4-10.4) Neutrophils (%) (Auto) 73.7 % Lymphocytes (%) (Auto) 14.2 % Monocytes (%) (Auto) 6.1 % Eosinophils (%) (Auto) 5.2 % Basophils (%) (Auto) 0.4 % Neutrophils # (Auto) 4.90 K/uL (1.4-6.5) Lymphocytes # (Auto) 0.95 K/uL (1.2-3.4) Monocytes # (Auto) 0.41 K/uL (0.11-0.59) Eosinophils # (Auto) 0.35 K/uL (0-0.5) Basophils # (Auto) 0.03 K/uL (0-0.2) RDW Standard Deviation 69.0 fL (36.4-46.3) RDW Coefficient of Variation 23.7 % (11.5-14.5) Immature Granulocyte % (Auto) 0.4 % Immature Granulocyte # (Auto) 0.03 K/uL (0.00-0.02) Poikilocytosis PRESENT Anisocytosis PRESENT Prothrombin Time 17.4 SECONDS (9.0-12.0) Prothromb Time International Ratio 1.7 (0.9-1.1) Activated Partial Thromboplast Time 38.5 SECONDS (21.0-31.0) Partial Thromboplastin Ratio 1.5 Anion Gap 6.0 mmol/L (3-11) Est Creatinine Clear Calc Drug Dose 77.1 ml/min Estimated GFR () 103.3 Estimated GFR (Non- 89.1 BUN/Creatinine Ratio 27.1 (10-20) Osmolality 288 mOsm/kg (280-300) Calcium Level 8.8 mg/dl (8.5-10.1) Magnesium Level 2.0 mg/dl (1.8-2.4) Total Bilirubin 1.6 mg/dl (0.2-1) Direct Bilirubin 0.4 mg/dl (0-0.2) Aspartate Amino Transf (AST/SGOT) 31 U/L (15-37) Alanine Aminotransferase (ALT/SGPT) 26 U/L (12-78) Alkaline Phosphatase 145 U/L (45-117) Ammonia < 10.0 umol/L (11-32) Total Creatine Kinase 102 U/L (26-192) Creatine Kinase MB 1.9 ng/ml (0.5-3.6) Creatine Kinase MB Ratio 1.9 (0-3.0) Troponin I < 0.015 ng/ml (0-0.045) Total Protein 7.0 gm/dl (6.4-8.2) Albumin 3.2 gm/dl (3.4-5.0) Lipase 139 U/L (73-393) Digoxin Level 0.9 ng/ml (0.8-2.0) Salicylates Level < 1.7 mg/dl (2.8-20) Acetaminophen Level < 2 ug/ml (10-30) Ethyl Alcohol mg/dL < 3.0 mg/dl (0-3) Urine Color YELLOW Urine Appearance CLEAR (CLEAR) Urine pH 7.5 (4.5-7.5) Urine Specific Lillian 1.009 (1.000-1.030) Urine Protein NEG (NEG) Urine Glucose (UA) NEG (NEG) Urine Ketones NEG (NEG) Urine Occult Blood TRACE (NEG) Urine Nitrite NEG (NEG) Urine Bilirubin NEG (NEG) Urine Urobilinogen NEG (NEG) Urine Leukocyte Esterase NEG (NEG) Urine WBC (Auto) 1-5 /hpf (0-5) Urine RBC (Auto) 0-4 /hpf (0-4) Urine Hyaline Casts (Auto) 0 /lpf (0-5) Urine Epithelial Cells (Auto) 10-20 /lpf (0-5) Urine Bacteria (Auto) NEG (NEG) Urine Opiates Screen NEG (NEG) Urine Methadone, Qualitative NEG (NEG) Urine Barbiturates NEG (NEG) Urine Phencyclidine (PCP) Level NEG (NEG) Ur Amphetamine/Methamphetamine NEG (NEG) MDMA (Ecstasy) Screen NEG (NEG) Urine Benzodiazepines Screen NEG (NEG) Urine Cocaine Metabolite NEG (NEG) Urine Marijuana (THC) NEG (NEG) Laboratory results per my review. Medications Administered Medications (Trade) Dose Ordered Sig/Debbie Route Start Time Stop Time Status Last Admin Dose Admin Sodium Chloride 1,000 ml @ 999 mls/hr Q1H1M STAT IV 11/16/17 13:10 11/16/17 14:10 DC 11/16/17 14:11 999 MLS/HR Carvedilol (Coreg Tab) 6.25 mg ONE STAT PO 11/16/17 16:20 11/16/17 16:21 DC 11/16/17 16:20 6.25 MG ECG Per My Interpretation Indication: toxicologic Rate (beats per minute): 107 Rhythm: atrial fibrillation Findings: ST depression (Lateral ), T-wave inversion, other (Poor R-wave progress, low voltage noted, ) Comparison ECG Date: 11/10/2017 ED Course 1300: The patient was evaluated in room B4B. A complete history and physical examination were performed. 1310: Ordered Sodium Chloride 1000 mL @ 999 mL/hr IV. 1602: I checked on the patient at this time. She is sleeping in bed. 1620: Ordered Carvedilol 6.25 mg PO. 1624: Upon reevaluation, the patient is resting in bed. I discussed the results and treatment plan with her and her niece. They verbalized agreement of the treatment plan. The patient was discharged home. Medical Decision Differential diagnosis: Etiologies such as toxicologic, infection, hypoglycemia, electrolyte abnormalities, cardiac sources, intracerebral event, neurologic, as well as others were entertained. Nursing notes reviewed. The patient is a 61-year-old female who presented to the emergency department for an evaluation of taking too much of her medication. The patient was recently discharged from our facility. She was taking multiple medications. Her niece who is her primary medical caregiver at this time found that she was taking her medications inappropriately. I reviewed the patient's laboratory and radiographic studies with her. I discussed her case with the emergency department pharmacist. At this time she has been instructed to hold all of her medications until tomorrow morning and start with her medications as usual tomorrow morning but only as directed. I also encouraged her to follow-up with her primary care physician. She was given a dose of her carvedilol in the emergency department because it does not sound as though she is taking this medication. This medication is to be filled tomorrow and will be ready at the pharmacy. Medication Reconcilliation Current Medication List: was personally reviewed by me Blood Pressure Screening Patient's blood pressure: Normal blood pressure Impression Primary Impression: Accidental overdose Scribe Attestation The scribe's documentation has been prepared under my direction and personally reviewed by me in its entirety. I confirm that the note above accurately reflects all work, treatment, procedures, and medical decision making performed by me. Departure Information Dispostion Home / Self-Care Referrals Maria Dolores Aranda ., JAMILA (PCP) Forms HOME CARE DOCUMENTATION FORM, IMPORTANT VISIT INFORMATION, WORK / SCHOOL INSTRUCTIONS Patient Instructions My [facility] Additional Instructions Continue all medications only as prescribed. Follow-up with your family doctor soon as possible. Return to the emergency department immediately if symptoms change worsen or the need arises. Problem Qualifiers Primary Impression: Accidental overdose Encounter type: initial encounter Qualified Codes: T50.901A - Poisoning by unspecified drugs, medicaments and biological substances, accidental ( unintentional), initial encounter
[2017-11-16 13:20] VITALS: O2SAT 95
--- NOTE | 2017-11-16 13:27 | DIAGNOSTIC IMAGING REPORT ---
CHEST ONE VIEW PORTABLE CLINICAL HISTORY: Overdose COMPARISON STUDY: 11/12/2017 FINDINGS: The heart is enlarged. There is improving pulmonary vascular congestion. There is improving aeration of the lung bases. There is stable aortic tortuosity. There is no acute lobar consolidation. There is an internally fixated fracture the mid right humerus. There is evidence of fracture nonunion and hardware loosening. IMPRESSION: 1. Improving perivascular congestion 2. Internally fixated right mid humeral fracture. There is fracture nonunion and hardware loosening Electronically signed by: Kg Doran M.D. 11/16/2017 1:26 PM Dictated Date/Time: 11/16/2017 1:21 PM
[2017-11-16 14:10] LABS: BASO % 0.4 %; BASO ABS # 0.03 K/uL (0-0.2); EOS % 5.2 %; EOS ABS # 0.35 K/uL (0-0.5); HEMATOCRIT 27.1 % (37-47); HEMOGLOBIN 8.6 g/dL (12.0-16.0); IG# 0.03 K/uL (0.00-0.02); LYMPH % 14.2 %; LYMPH ABS # 0.95 K/uL (1.2-3.4); MEAN CELL VOLUME 89.4 fL (80-100); MEAN CORPUSCULAR HEMOGLOBIN 28.4 pg (25-34); MEAN CORPUSCULAR HGB CONC 31.7 g/dl (32-36); MEAN PLATELET VOLUME 8.8 fL (7.4-10.4); MONO % 6.1 %; MONO ABS # 0.41 K/uL (0.11-0.59); NEUT % 73.7 %; PLATELET COUNT 306 K/uL (130-400); RED CELL DISTRIBUTION WIDTH CV 23.7 % (11.5-14.5); WHITE BLOOD COUNT 6.67 K/uL (4.8-10.8)
[2017-11-16 14:21] LABS: INR 1.7 (0.9-1.1); PTT PATIENT 38.5 SECONDS (21.0-31.0)
[2017-11-16 14:31] LABS: ALBUMIN 3.2 gm/dl (3.4-5.0); ALT/SGPT 26 U/L (12-78); BLOOD UREA NITROGEN 20 mg/dl (7-18); CALCIUM 8.8 mg/dl (8.5-10.1); CARBON DIOXIDE 27 mmol/L (21-32); CREATININE 0.72 mg/dl (0.60-1.20); GLUCOSE 95 mg/dl (70-99); LIPASE 139 U/L (73-393); POTASSIUM 3.8 mmol/L (3.5-5.1); SODIUM 137 mmol/L (136-145)
[2017-11-16 14:34] LABS: ALKALINE PHOSPHATASE 145 U/L (45-117); AST/SGOT 31 U/L (15-37); CKMB 1.9 ng/ml (0.5-3.6)
[2017-11-16 14:46] LABS: DIGOXIN 0.9 ng/ml (0.8-2.0)
[2017-11-16] MEDS ORDERED: CARVEDILOL 6.25 MG TAB PO STA (16:20)
[2017-11-16 16:45] VITALS: BP 146/83; PULSE 87; O2SAT 95
== END 2017-11-16 17:03 | disposition home or self-care (01) ==
LOC: C.EDB 12:54
DX: T50.901A Poisoning by unspecified drugs, medicaments and biological substances, accidental (unintentional), initial encounter (principal); K76.9 Liver disease, unspecified; G93.40 Encephalopathy, unspecified; K21.9 Gastro-esophageal reflux disease without esophagitis; E78.5 Hyperlipidemia, unspecified; E87.0 Hyperosmolality and hypernatremia; I95.9 Hypotension, unspecified; I25.2 Old myocardial infarction; I48.91 Unspecified atrial fibrillation; F10.239 Alcohol dependence with withdrawal, unspecified; Z80.9 Family history of malignant neoplasm, unspecified; Z82.49 Family history of ischemic heart disease and other diseases of the circulatory system; F17.210 Nicotine dependence, cigarettes, uncomplicated; Z79.82 Long term (current) use of aspirin; Z79.01 Long term (current) use of 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; Z79.899 Other long term (current) drug therapy

== ENCOUNTER → 2017-11-20 | Outpatient (CLI) | payer OTHER ==
[2017-11-20 13:49] LABS: BASO % 0.5 %; BASO ABS # 0.03 K/uL (0-0.2); EOS % 4.2 %; EOS ABS # 0.24 K/uL (0-0.5); HEMATOCRIT 30.7 % (37-47); HEMOGLOBIN 9.6 g/dL (12.0-16.0); IG# 0.01 K/uL (0.00-0.02); LYMPH % 13.6 %; LYMPH ABS # 0.77 K/uL (1.2-3.4); MEAN CELL VOLUME 92.7 fL (80-100); MEAN CORPUSCULAR HGB CONC 31.3 g/dl (32-36); MEAN PLATELET VOLUME 8.9 fL (7.4-10.4); MONO % 6.2 %; MONO ABS # 0.35 K/uL (0.11-0.59); NEUT % 75.3 %; NEUT ABS # 4.25 K/uL (1.4-6.5); PLATELET COUNT 400 K/uL (130-400); RED CELL DISTRIBUTION WIDTH CV 24.5 % (11.5-14.5); RED CELL DISTRIBUTION WIDTH SD 82.6 fL (36.4-46.3); WHITE BLOOD COUNT 5.65 K/uL (4.8-10.8)
[2017-11-20 13:53] LABS: INR 1.2 (0.9-1.1)
[2017-11-20 14:20] LABS: TRANSFERRIN 327 mg/dl (200-360)
== END | disposition home or self-care (01) ==
LOC: C.LABBC 11:05
PROVIDERS: ATTEND Family Medicine
DX: D64.9 Anemia, unspecified (principal); I48.91 Unspecified atrial fibrillation

== ENCOUNTER → 2017-12-01 | Outpatient (CLI) | payer OTHER ==
[2017-12-01 16:53] LABS: HEMATOCRIT 33.7 % (37-47); HEMOGLOBIN 10.7 g/dL (12.0-16.0); MEAN CELL VOLUME 93.1 fL (80-100); MEAN CORPUSCULAR HEMOGLOBIN 29.6 pg (25-34); MEAN CORPUSCULAR HGB CONC 31.8 g/dl (32-36); MEAN PLATELET VOLUME 8.6 fL (7.4-10.4); PLATELET COUNT 341 K/uL (130-400); RED CELL DISTRIBUTION WIDTH CV 20.7 % (11.5-14.5); RED CELL DISTRIBUTION WIDTH SD 70.9 fL (36.4-46.3); WHITE BLOOD COUNT 4.56 K/uL (4.8-10.8)
[2017-12-01 17:36] LABS: BLOOD UREA NITROGEN 23 mg/dl (7-18); CALCIUM 9.3 mg/dl (8.5-10.1); CARBON DIOXIDE 26 mmol/L (21-32); CREATININE 0.86 mg/dl (0.60-1.20); GLUCOSE 96 mg/dl (70-99); PHOSPHORUS 4.4 mg/dl (2.5-4.9); POTASSIUM 4.5 mmol/L (3.5-5.1); SODIUM 136 mmol/L (136-145)
== END | disposition home or self-care (01) ==
LOC: C.LABBC 13:12
PROVIDERS: ATTEND Internal Medicine Cardiovascular Disease
DX: I21.4 Non-ST elevation (NSTEMI) myocardial infarction (principal); D64.9 Anemia, unspecified; I42.9 Cardiomyopathy, unspecified; I48.91 Unspecified atrial fibrillation; Z51.81 Encounter for therapeutic drug level monitoring; Z79.899 Other long term (current) drug therapy

== ENCOUNTER 2018-12-12 14:13 | Inpatient (IN) ==
[2018-12-12] MEDS ORDERED: LORazepam 2 MG/4 ML VIAL ONE (14:38)
[2018-12-12] MEDS ORDERED: SODIUM CHLORIDE 0.9% 1000ML 1,000 ML IV ONE ×3 (14:43→17:41)
[2018-12-12] MEDS ORDERED: LORazepam 1 MG/2 ML VIAL IV STA ×2 (14:43→15:10)
[2018-12-12 14:53] LABS: Hematocrit (blood only) 32.9 % (37-47); Hemoglobin 11.5 g/dL (12.0-16.0); Mean Platelet Volume 9.5 fL (7.4-10.4); Platelet Count 368 K/uL (130-400); RDW Coefficient of Variation 15.2 % (11.5-14.5); RDW Standard Deviation 48.9 fL (36.4-46.3); Red Blood Count 3.78 M/uL (4.2-5.4); White Blood Count 8.92 K/uL (4.8-10.8)
[2018-12-12] MEDS ORDERED: THIAMINE HCL 500 MG in 0.9 % SODIUM CHLORIDE 100 ML IV ONE (15:00)
[2018-12-12] MEDS ORDERED: MULTI-VITAMIN INFUSION 10 ML, THIAMINE HCL 100 MG, FOLIC ACID 1 MG in SODIUM CHLORIDE 0... IV SCH (15:00)
--- NOTE | 2018-12-12 15:09 | XRay Report ---
SINGLE VIEW CHEST CLINICAL HISTORY: Change in mental status. FINDINGS: An AP, portable, upright chest radiograph is compared to study dated 03/06/2018 and correlat ed with chest CT dated 11/10/2017. The examination is degraded by portable technique, apical lordotic positioning, and patient rotation. The heart is enlarged and there is atherosclerotic calcification of the thoracic aorta. There is mild pulmonary vascular congestion. There are low lung volumes with b ibasilar atelectasis. No large pleural effusion is identified. No pneumothorax is seen. The skeletal structures are osteopenic. The bony thorax is grossly intact. Postoperative change is noted in the ri ght humerus. IMPRESSION: 1. Cardiomegaly with mild pulmonary vascular congestion. 2. Low lung volumes with bibasilar atelectasis. Electronically signed by: Drew Lazo M.D. 12/12/2018 3:07 PM
[2018-12-12 15:13] LABS: Alanine Aminotransferase 55 U/L (12-78); Albumin Level 2.4 gm/dl (3.4-5.0); Aspartate Aminotransferase 50 U/L (15-37); BUN Creatinine Ratio 17.1 (10-20); Bilirubin Direct 0.2 mg/dl (0-0.2); Blood Urea Nitrogen 73 mg/dl (7-18); Carbon Dioxide 18 mmol/L (21-32); Chloride 99 mmol/L (98-107); Est GFR (African American) 11.9; Est GFR (Non-African American) 10.3; Glucose 93 mg/dl (70-99); INR 1.1 (0.9-1.1); Partial Thromboplastin Ratio 1.2; Partial Thromboplastin Time 32.9 Seconds (21.0-31.0); Potassium 4.7 mmol/L (3.5-5.1); Prothrombin Time 11.2 Seconds (9.0-12.0); Sodium 130 mmol/L (136-145)
[2018-12-12 15:16] LABS: Alkaline Phosphatase 151 U/L (45-117); Bilirubin,Total 0.3 mg/dl (0.2-1); Creatine Kinase 155 U/L (26-192); Total Protein 7.7 gm/dl (6.4-8.2); Troponin I < 0.015 ng/ml (0-0.045)
[2018-12-12] MEDS ORDERED: RAPID SEQUENCE INDUCTION BAG ONE (15:27)
[2018-12-12 15:33] LABS: Basophils # (auto) 0.01 K/uL (0-0.2); Basophils % (auto) 0.1 %; Echinocytes 2+; Eosinophils # (auto) 0.03 K/uL (0-0.5); Eosinophils % (auto) 0.3 %; Immature Granulocytes # (auto) 0.05 K/uL (0.00-0.02); Immature Granulocytes % (auto) 0.6 %; Lymphocytes # (auto) 0.51 K/uL (1.2-3.4); Lymphocytes % (auto) 5.7 %; Monocytes # (auto) 0.54 K/uL (0.11-0.59); Monocytes % (auto) 6.1 %; Neutrophils # (auto) 7.78 K/uL (1.4-6.5); Neutrophils % (auto) 87.2 %
[2018-12-12] MEDS ORDERED: D5W AND NSS 1,000 ML IV SCH ×2 (15:45→16:00)
[2018-12-12] MEDS ORDERED: PROPOFOL IV EMULSION 10 MG/ML 100 ML VIAL IV ONE (15:59)
[2018-12-12] MEDS ORDERED: PROPOFOL 1,000 MG/100 ML VIAL IV SCH (16:00)
--- NOTE | 2018-12-12 16:28 | XRay Report ---
SINGLE VIEW CHEST CLINICAL HISTORY: Intubation. FINDINGS: An AP, portable, supine chest radiograph is compared to study performed earlier the same da y 12/12/2018 and correlated with chest CT dated 11/10/2017. The examination is degraded by portable elma hnique, apical lordotic positioning, and patient rotation. An endotracheal tube has been placed. The tip projects 2 cm above the rowena. The heart is enlarged and there is atherosclerotic calcification of the thoracic aorta. Mild pulmonary vascular congestion persists. Question developing airspace cons olidation at the left lung base. No large pleural effusion is identified. No pneumothorax is seen. Th e skeletal structures are osteopenic. The bony thorax is grossly intact. Postoperative change is note d in the right humerus. IMPRESSION: 1. An endotracheal tube has been placed as detailed above. 2. Cardiomegaly with mild persistent pulmonary vascular congestion. 3. Question developing airspace consolidation at the left lung base. No large pleural effusion is madiha ntified. Electronically signed by: Drew Lazo M.D. 12/12/2018 4:27 PM
[2018-12-12] MEDS: fentaNYL DRIP 1,250 MCG/250 ML BAG IV SCH (16:35)
--- NOTE | 2018-12-12 17:05 | CT Scan Report ---
CT SCAN OF THE BRAIN WITHOUT IV CONTRAST CLINICAL HISTORY: Change in mental status. Tremor. COMPARISON STUDY: CT of the brain dated 03/04/2018. TECHNIQUE: Unenhanced axial CT scan of the brain is performed from the vertex to the skull base. A do se lowering technique was utilized adhering to the principles of ALARA. CT DOSE: 537.48 mGy.cm FINDINGS: Brain parenchyma: There are age-related involutional changes noting moderate to advanced subcortical and periventricular microangiopathic change. There is no hemorrhage, mass effect, or evidence of acu te territorial ischemia by CT criteria. Molina-white matter differentiation is preserved. No extra-axia l fluid collection is seen. Ventricles, sulci, cisterns: Prominent secondary to involutional change. Intracranial vasculature: There is atherosclerotic calcification of the cavernous carotid and vertebr al arteries. Calvarium: Unremarkable. Sinuses and mastoids: The visualized paranasal sinuses are clear. The mastoid air cells are well pneu matized. Orbits: The bony orbits are grossly intact. IMPRESSION: Senescent changes as above with no hemorrhage, mass effect, or evidence of acute territor ial ischemia by CT criteria. Electronically signed by: Drew Lazo M.D. 12/12/2018 5:04 PM
[2018-12-12] MEDS ORDERED: GLUCOSE 40% GEL 15 GM TUBE PO PRN (17:29)
[2018-12-12] MEDS ORDERED: ICU PROTOCOL FOR HYPERGLYCEMIA PRN (17:29)
[2018-12-12] MEDS ORDERED: fentaNYL citrate 100 MCG/2 ML VIAL IV PRN (17:29)
[2018-12-12] MEDS ORDERED: CARBOHYDRATES FOR HYPOGLYCEMIA PO PRN (17:29)
[2018-12-12] MEDS ORDERED: GLUCAGON FOR INJ 1 MG VIAL SQ PRN (17:29)
[2018-12-12] MEDS ORDERED: BISACODYL 10 MG SUPP PR PRN (17:29)
[2018-12-12] MEDS ORDERED: GLUCOSE 10 TABS/TUBE PO PRN (17:29)
[2018-12-12] MEDS ORDERED: DEXTROSE 50% 50 ML SYRINGE IV PRN (17:29)
[2018-12-12] MEDS ORDERED: POLYETHYLENE (MIRALAX) 17 GM PACK PO PRN (17:29)
[2018-12-12] MEDS ORDERED: ALBUT/IPRATROP 3MG/0.5MG NEB 3 ML VIAL INH PRN (17:29)
[2018-12-12] MEDS ORDERED: SODIUM BICARB 8.4% INJ 50 MEQ/50 ML SYR IV STA ×2 (18:00→18:01)
[2018-12-12] MEDS ORDERED: PHARMACY GLYCEMIC MGMT CONSULT PRN (18:06)
[2018-12-12] MEDS: NOREPINEPHRINE BIT INJ 8 MG in DEXTROSE 5% 500 ML IV SCH (18:09)
--- NOTE | 2018-12-12 18:16 | History & Physical Report ---
Date of Service December 12, 2018 Assessment & Plan (1) Hypovolemic shock: likely due to dehydration, metabolic acidosis no signs of infection, WBC normal, no fever no signs of bleeding, Hb is 11.5 no hypoxic respiratory failure so doubt obstructive shock treat with aggressive IV hydration and the Levophed will likely need central line and arterial line, defer to family court counsellor (2) Metabolic acidosis: elevated anion gap, could be due to TERRY, possible ingestion of rubbing alcohol, unclear history pH was 7.1 on ABG will increase ventilatory rate to 22 and provide 2 amps sodium bicarb now patient is hypotensive repeat ABG in one hour nephrology consult placed due to TERRY as well (3) TERRY (acute kidney injury): likely due to dehydration and hypotension no signs of septic shock could also be due to ingestion of unknown substance ( admitted to drinking rubbing alcohol) aggressive hydration at first due to hypotension two 1000cc boluses given and then run Normosol at 80cc/hr miguel placed for accurate UO nephrology consulted for recommendations check urine studies for casts, proteins etc (4) Acute respiratory failure: agitated and not protecting airway in the ED intubated to protect airway ABG shows that this is not hypoxic failure has a history of heavy smoking so may have a component of COPD (5) Atrial fibrillation with RVR: required cardioversion in the ED due to hemodynamic instability now in sinus rhythm typically on Coreg and Xarelto, unsure if she was actually taking at home check echo stat (6) Alcohol dependence: h/o such, per family has not been drinking alcohol for two years ETOH negative on admission (7) Neurocognitive disorder: per family, has alcohol induced dementia needs cared for by started drinking again and was neglecting care of the History of Present Illness Chief Complaint: Intubated Primary Care Provider: Dior Zafar PA-C 62 yo female with history of alcohol abuse, mild dementia, afib, liver disease who presented to the ED with confusion, afib with RVR, dyspnea and agitation. She was brought into the ED by her family, her neice, because she was acting confused. She was last seen on Monday and she was reportedly acting like herself. Even at baseline she has memory issues and lacks the ability to care for herself due to excessive alcohol abuse. Her typically makes sure she is taking her medications and eating and bathing. They both stay in their home. According to the patient's , he has been drinking rubbing alcohol daily because he could not get out to get alcohol. He did not say if the patient was drinking rubbing alcohol. The niece provided the history, she states that she is not sure what has been going on in the home the past few days. The medics found animal and human feces on the floor. The patient was extremely dirty and unkept. In the ED she was acting extremely agitated and was experiencing tremors. She was sedated with Ativan but eventually required intubation to protect her airway and then further sedation. She was in atrial fibrillation with RVR, rates in the 150's. She became hypotensive at that time and was subsequently cardioverted, successfully, back to sinus rhythm. Her Cr was markedly elevated at 4.7, baseline was 1.0. There was evidence of metabolic acidosis. CT head was normal. CXR was unremarkable. She did not have a fever and WBC was normal. She was admitted to the ICU. Once in the ICU she became hypotensive with MAP < 60. Propofol was being used for sedation, dose was reduced. She was given two 1000cc boluses of NSS and started on Levophed, pressures came up to 120's systolic. Miguel was placed, minimal urine output. ABG showed metabolic acidosis with pH of 7.1. 2 amps of sodium bicarb administered and ventilatory rate increased to 22. There was no hypoxia noted on the ABG. Discussed the case in detail with Dr. Cha. Critical care was provided by myself in the ICU from 530pm to 620pm prior to Dr. Cha's arrival. Total critical care time was 50 minutes Allergies Allergy/AdvReac Type Severity Reaction Status Date / Time No Known Allergies Allergy Verified 12/12/18 17:42 Home Medications Home Medications Medication Instructions Recorded Confirmed Type aspirin 81 mg PO DAILY 12/12/18 12/12/18 History atorvastatin 40 mg PO DAILY 12/12/18 12/12/18 History calcium carbonate [Tums] 200 mg PO DIRECTED PRN 12/12/18 12/12/18 History carvedilol 3.125 mg PO QAM 12/12/18 12/12/18 History carvedilol 12.5 mg PO BIDM 12/12/18 12/12/18 History escitalopram oxalate 10 mg PO DAILY 12/12/18 12/12/18 History ferrous sulfate 325 mg PO BID 12/12/18 12/12/18 History fluticasone propionate 2 spray INTRANASAL DAILY 12/12/18 12/12/18 History folic acid 1 mg PO DAILY 12/12/18 12/12/18 History magnesium oxide 400 mg PO BID 12/12/18 12/12/18 History multivitamin,[id number] 1 tab PO DAILY 12/12/18 12/12/18 History [Therems-M] omeprazole 20 mg PO DAILY 12/12/18 12/12/18 History rivaroxaban [Xarelto] 15 mg PO PM 12/12/18 12/12/18 History spironolactone 25 mg PO DAILY 12/12/18 12/12/18 History thiamine HCl (vitamin B1) [Vitamin 50 mg PO BID 12/12/18 12/12/18 History B-1] Past Med/Surg History Medical History Trimalleolar fracture of left ankle (Resolved) Dislocation of ankle joint (Resolved) Trimalleolar fracture of right ankle (Resolved) GERD (gastroesophageal reflux disease) (Chronic) Hyperlipidemia (Chronic) 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) use of 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 (Chronic) Alcohol dependence (Chronic) Acute liver disease (Chronic) Hypotension (Resolved) Rapid atrial fibrillation (Chronic) High anion gap metabolic acidosis Family History Other Diabetes Hypertension Social History Preferred Language: Micronesian Rn Patient Services Required: Yes Beliefs That Will Affect Care: None marital status: Current Living Situation: Spouse Other Information That Helps Us Care for You: No Feels Safe at Home: Declines to Answer Smoking Status: Current every day smoker Hx Alcohol Use: Yes (Per Report, patient unable to answer) Hx Substance Use: No Review of Systems Review of Systems: Unobtainable due to endotracheal tube Physical Exam Vital Signs (Past 24 Hours): Last Vital Signs Temp 36.9 C 12/12/18 14:22 Pulse 101 H 12/12/18 17:19 Resp 18 12/12/18 17:19 BP 88/54 L 12/12/18 16:36 Pulse Ox 97 12/12/18 16:36 Constitutional: well developed, well nourished, + ill appearing and + obese Eyes: PERRL, conjunctivae normal, anicteric sclerae ENMT: Nose: no nasal discharge Mouth: + oral mucosal abnormality (very dry) and + dentition abnormality (several loose teeth, several teeth knocked out) intubated Neck: trachea midline, no thyromegaly Respiratory: normal respiratory effort, lungs clear to auscultation Cardiovascular: RRR, no murmur, no edema Gastrointestinal (Abdomen): normal bowel sounds, soft, nontender, no hepatosplenomegaly Musculoskeletal: Head/Neck/Chest: normocephalic and head atraumatic Extremities: no cyanosis and no clubbing Skin: no rashes, warm and dry Neurologic: CN's II-XI intact bilaterally and moves all extremities; no focal motor deficits Psychiatric: Orientation: + not alert (sedated), + not oriented to person, + not oriented to place and + not oriented to time Apperance: + disheveled Lymphatic: no cervical or axillary lymphadenopathy Results & Data Laboratory Results Laboratory Results - last 24 hr 12/12/18 12/12/18 12/12/18 14:37 14:37 14:37 WBC 8.92 RBC 3.78 L Hgb 11.5 L Hct 32.9 L MCV 87.0 MCH 30.4 MCHC 35.0 RDW Std Deviation 48.9 H RDW Coeff of Hari 15.2 H Plt Count 368 MPV 9.5 Immature Gran % (Auto) 0.6 Neut % (Auto) 87.2 Lymph % (Auto) 5.7 [place] % (Auto) 6.1 Eos % (Auto) 0.3 Baso % (Auto) 0.1 Immature Gran # (Auto) 0.05 H Neut # (Auto) 7.78 H Lymph # (Auto) 0.51 L [place] # (Auto) 0.54 Eos # (Auto) 0.03 Baso # (Auto) 0.01 Echinocytes 2+ PT 11.2 INR 1.1 APTT 32.9 H PTT Ratio 1.2 Sodium Potassium Chloride Carbon Dioxide Anion Gap BUN Creatinine Est Cr Clr Drug Dosing Est GFR ( Amer) Est GFR (Non-Af Amer) BUN/Creatinine Ratio Glucose Osmolality 291 Calcium Magnesium Total Bilirubin Direct Bilirubin AST ALT Alkaline Phosphatase Total Creatine Kinase Troponin I Total Protein Albumin Lipase Urine Color Urine Appearance Urine pH Ur Specific [place] Urine Protein Urine Glucose (UA) Urine Ketones Urine Blood Urine Nitrite Urine Bilirubin Urine Urobilinogen Ur Leukocyte Esterase Urine WBC (Auto) Urine RBC (Auto) U Hyaline Cast (Auto) U Epithel Cells (Auto) Urine Bacteria (Auto) Urine Osmolality Ur Random Creatinine Nasal Screen MRSA (PCR) 12/12/18 12/12/18 12/12/18 14:37 17:32 17:49 WBC RBC Hgb Hct MCV MCH MCHC RDW Std Deviation RDW Coeff of Hari Plt Count MPV Immature Gran % (Auto) Neut % (Auto) Lymph % (Auto) [place] % (Auto) Eos % (Auto) Baso % (Auto) Immature Gran # (Auto) Neut # (Auto) Lymph # (Auto) [place] # (Auto) Eos # (Auto) Baso # (Auto) Echinocytes PT INR APTT PTT Ratio Sodium 130 L Potassium 4.7 Chloride 99 Carbon Dioxide 18 L Anion Gap 12.0 H BUN 73 H Creatinine 4.27 H Est Cr Clr Drug Dosing Not Reportable Est GFR ( Amer) 11.9 Est GFR (Non-Af Amer) 10.3 BUN/Creatinine Ratio 17.1 Glucose 93 Osmolality Calcium 9.0 Magnesium 3.0 H Total Bilirubin 0.3 Direct Bilirubin 0.2 AST 50 H ALT 55 Alkaline Phosphatase 151 H Total Creatine Kinase 155 Troponin I < 0.015 Total Protein 7.7 Albumin 2.4 L Lipase 56 L Urine Color Urine Appearance Urine pH Ur Specific [place] Urine Protein Urine Glucose (UA) Urine Ketones Urine Blood Urine Nitrite Urine Bilirubin Urine Urobilinogen Ur Leukocyte Esterase Urine WBC (Auto) Urine RBC (Auto) U Hyaline Cast (Auto) U Epithel Cells (Auto) Urine Bacteria (Auto) Urine Osmolality Ur Random Creatinine 94.4 Nasal Screen MRSA (PCR) Negative 12/12/18 12/12/18 17:49 17:49 WBC RBC Hgb Hct MCV MCH MCHC RDW Std Deviation RDW Coeff of Hari Plt Count MPV Immature Gran % (Auto) Neut % (Auto) Lymph % (Auto) [place] % (Auto) Eos % (Auto) Baso % (Auto) Immature Gran # (Auto) Neut # (Auto) Lymph # (Auto) [place] # (Auto) Eos # (Auto) Baso # (Auto) Echinocytes PT INR APTT PTT Ratio Sodium Potassium Chloride Carbon Dioxide Anion Gap BUN Creatinine Est Cr Clr Drug Dosing Est GFR ( Amer) Est GFR (Non-Af Amer) BUN/Creatinine Ratio Glucose Osmolality Calcium Magnesium Total Bilirubin Direct Bilirubin AST ALT Alkaline Phosphatase Total Creatine Kinase Troponin I Total Protein Albumin Lipase Urine Color Yellow Urine Appearance Cloudy H Urine pH 5.0 Ur Specific [place] 1.015 Urine Protein 2+ H Urine Glucose (UA) Negative Urine Ketones Negative Urine Blood 2+ H Urine Nitrite Negative Urine Bilirubin Negative Urine Urobilinogen Negative Ur Leukocyte Esterase 3+ H Urine WBC (Auto) >30 H Urine RBC (Auto) 5-10 H U Hyaline Cast (Auto) 1-5 U Epithel Cells (Auto) 20-30 H Urine Bacteria (Auto) 2+ H Urine Osmolality 313 L Ur Random Creatinine Nasal Screen MRSA (PCR) Diagnostic Findings XR KUB/Abdomen 1 view FINDINGS: Nasogastric tube placed in the distal stomach. Nonobstructive bowel pattern. IMPRESSION: Nasogastric tube placed in the distal stomach. RENAL US IMPRESSION: Normal renal ultrasound. ABD US IMPRESSION: No significant abnormality identified within the within the right upper quadrant. CXR IMPRESSION: 1. An endotracheal tube has been placed as detailed above. 2. Cardiomegaly with mild persistent pulmonary vascular congestion. 3. Question developing airspace consolidation at the left lung base. No large pleural effusion is identified. CT HEAD IMPRESSION: Senescent changes as above with no hemorrhage, mass effect, or evidence of acute territorial ischemia by CT criteria. Code Status & VTE Plan Code Status FULL CODE VTE Prophylaxis Plan VTE Prophylaxis will be ordered: Yes Critical Care Time Time in 530pm until 620pm total time 50 minutes included managing metabolic acidosis and hypovolemic shock with IV fluid boluses, Levophed and bicarb Critical Care Time: Yes Total Critical Care Time: 50
[2018-12-12] MEDS: PROPOFOL 1,000 MG/100 ML VIAL IV SCH (18:17)
[2018-12-12] MEDS ORDERED: HEPARIN IV BOLUS 5,000 UNITS in SYRINGE 0 ML IV ONE (18:30)
[2018-12-12] MEDS: HEPARIN SODIUM/DEXTROSE 25,000 UNITS/500 ML BAG IV SCH (18:33)
[2018-12-12] MEDS: INSULIN ASPART 100 UNITS/ML 3 ML PEN SC SCH ×2 (18:37→23:47)
[2018-12-12] MEDS ORDERED: DEXTROSE 5% IV ONE (18:45)
[2018-12-12] MEDS ORDERED: FOMEPIZOLE IV ONE (18:45)
[2018-12-12 18:50] LABS: Appearance Urine Cloudy (Clear); Bacteria Urine Automated 2+ (Negative); Bilirubin Urine Negative (Negative); Blood Urine 2+ (Negative); Color Urine Yellow; Epithelial Cell Urine Auto 20-30 /lpf (0-5); Glucose Urine UA Negative (Negative); Ketones Urine Negative (Negative); Leukocyte Esterase Urine 3+ (Negative); Nitrite Urine Negative (Negative); Protein Urine 2+ (Negative); Specific Gravity Urine 1.015 (1.000-1.030); Urobilinogen Urine Negative (Negative); WBC Urine Automated >30 /hpf (0-5)
--- NOTE | 2018-12-12 19:08 | XRay Report ---
XR KUB/Abdomen 1 view CLINICAL HISTORY: og tube placement COMPARISON STUDY: 02/11/2017 FINDINGS: Nasogastric tube placed in the distal stomach. Nonobstructive bowel pattern. IMPRESSION: Nasogastric tube placed in the distal stomach. The above report was generated using voice recognition software. It may contain grammatical, syntax or spelling errors. Electronically signed by: Sundar Benson M.D. 12/12/2018 7:06 PM
--- NOTE | 2018-12-12 20:15 | Critical Care Consultation ---
Date of Consultation December 12, 2018 Assessment & Plan (1) Admitted to intensive care unit: Reason Critically Ill: 62-year-old female with atrial fibrillation with rapid ventricular response, acute encephalopathy. PLAN: Neuro: Acute encephalopathy -Metabolic versus alcoholic -Ammonia level pending Alcohol abuse -While no reported history of withdrawal; admits to drinking isopropyl alcohol -Osmolar gap negative, no indication for omeprazole Resp: Tobacco dependence -Smoking cessation Possible infiltrate on chest x-ray versus pulmonary vascular congestion -This would be a community-acquired pneumonia CV: Abnormal EKG Prolonged QTC -Avoid QT prolonging agents Atrial fibrillation with rapid ventricular response -Emergent cardioversion secondary to hypotension Fluids/Renal: Hyponatremia High gap metabolic acidosis -Likely secondary to uremia Hypermagnesemia Acute kidney injury -Nephrology consult -Marisela Busby who convinced the patient to go to the emergency room today reports that patient most likely has [place] phobia and would not be compliant with hemodialysis treatments ID: Empiric antibiotics for pulmonary coverage -Rocephin well for catheter urinary pathogens -Urine culture pending GI/Nutrition: Elevated alkaline phosphatase -This is consistent with previous elevated alkaline phosphatase May 22, 2018 -Pepcid for GI prophylaxis Heme: Anemia of chronic disease DVT prophylaxis: Heparin infusion Endocrine: ICU hyperglycemia protocol Vascular access: Patient consented for arterial line, central line, bronchoscopy Code Status: Full code Patient's sister Aby is power of civil engineering project designer. She reportedly lives in [place] and a cell phone number is [phone] I have personally spent 90 minutes of critical care time in the direct management of this patient. This is a life/limb threatening event. This includes time spent evaluating patient, direct bedside care, chart review, placing orders, interpretation of diagnostic studies, discussion with consul tants, patient, and/or family members regarding treatment decisions, as well as other required patient management activities. This time is exclusive of all separately billable procedures, and teaching time and separate from and in addition to any other critical care service time. History of Present Illness Attending Physician: Reyes Allen DO Patient is a 62-year-old female who reportedly has a long-standing history of medical noncompliance. The patient's cousin once removed noticed she was having increasing exertional dyspnea. She also reports that the patient and her have significant alcohol use and dependence history, there are reported difficulties in ensuring regular nutrition and the emergency department reports that both the patient and the patient's are exhibiting signs of poor hygiene, covered in feces. In the emergency department the patient was extremely encephalopathic and combative requiring intubation to facilitate work- up. She was also found to be in atrial fibrillation with rapid ventricular response with associated hypotension necessitating electrical cardioversion due to lack of response to medical treatment. She has been admitted to the ICU for further evaluation and management. Allergies Allergy/AdvReac Type Severity Reaction Status Date / Time No Known Allergies Allergy Verified 12/12/18 17:42 Home Medications Home Medications Medication Instructions Recorded Confirmed Type aspirin 81 mg PO DAILY 12/12/18 12/12/18 History atorvastatin 40 mg PO DAILY 12/12/18 12/12/18 History calcium carbonate [Tums] 200 mg PO DIRECTED PRN 12/12/18 12/12/18 History carvedilol 3.125 mg PO QAM 12/12/18 12/12/18 History carvedilol 12.5 mg PO BIDM 12/12/18 12/12/18 History escitalopram oxalate 10 mg PO DAILY 12/12/18 12/12/18 History ferrous sulfate 325 mg PO BID 12/12/18 12/12/18 History fluticasone propionate 2 spray INTRANASAL DAILY 12/12/18 12/12/18 History folic acid 1 mg PO DAILY 12/12/18 12/12/18 History magnesium oxide 400 mg PO BID 12/12/18 12/12/18 History multivitamin,uv-[id number] 1 tab PO DAILY 12/12/18 12/12/18 History [Therems-M] omeprazole 20 mg PO DAILY 12/12/18 12/12/18 History rivaroxaban [Xarelto] 15 mg PO PM 12/12/18 12/12/18 History spironolactone 25 mg PO DAILY 12/12/18 12/12/18 History thiamine HCl (vitamin B1) [Vitamin 50 mg PO BID 12/12/18 12/12/18 History B-1] Patient History Medical History Trimalleolar fracture of left ankle (Resolved) Dislocation of ankle joint (Resolved) Trimalleolar fracture of right ankle (Resolved) GERD (gastroesophageal reflux disease) (Chronic) Hyperlipidemia (Chronic) senior living (current) use of 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 (Chronic) Alcohol dependence (Chronic) Acute liver disease (Chronic) Hypotension (Resolved) Rapid atrial fibrillation (Chronic) High anion gap metabolic acidosis Social History Preferred Language: Syrian 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 Beliefs That Will Affect Care: None marital status: Current Living Situation: Spouse Other Information That Helps Us Care for You: No Feels Safe at Home: Declines to Answer Smoking Status: Current every day smoker Hx Alcohol Use: Yes (Per Report, patient unable to answer) Hx Substance Use: No Review of Systems Review of Systems: Unobtainable due to reduced consciousness Physical Exam Physical Exam: General: Disheveled malodorous elderly female I have reviewed the recorded vital signs Neurological: RASS score: 2, Moves all 4 extremities, Psychological: Glascow Coma Scale: Eyes: 4, Verbal 4, Motor 5, Total 13 not following complex commands Eyes: Pupils are equal, round and reactive to light, anicteric sclera. Symmetrical lids. HENT: Oropharynx is obscured by endotracheal tube: Widespread dental caries, moist mucous membranes. Neck: Supple. Symmetric. trachea midline. No thyromegaly. Cardiovascular: Normal peripheral perfusion. Distal pulses and capillary refill intact. No JVD. Respiratory: Coarse sounds bilaterally, breath sounds are equal. Gastrointestinal: Soft. Non-distended. Lymphatic: No cervical lymphadenopathy. Musculoskeletal: No deformity. No clubbing nor cyanosis. Skin: Feces material appears to be on lower extremities Results & Data Vital Signs (Past 12 Hours) Vital Signs Temp Pulse Pulse Resp BP BP Pulse Ox 12/12/18 19:55 22 12/12/18 18:30 84 22 127/80 100 12/12/18 18:15 86 22 108/67 97 12/12/18 18:00 83 22 77/53 L 93 12/12/18 17:49 36.3 C L 85 18 77/52 L 100 12/12/18 17:45 84 77/52 L 100 12/12/18 17:43 83 12/12/18 17:38 85 79/53 L 100 12/12/18 17:37 85 78/51 L 100 12/12/18 17:19 101 H 18 12/12/18 16:41 109 H 97/62 L 96 12/12/18 16:40 105 H 16 88/52 L 96 12/12/18 16:36 104 H 105 H 16 93/58 L 88/54 L 96 12/12/18 16:32 95 H 80/58 L 12/12/18 16:31 98 H 75/52 L 97 12/12/18 16:28 150 H 75/51 L 12/12/18 16:27 135 H 75/51 L 100 12/12/18 16:17 126 H 24 99 12/12/18 15:51 129 H 16 90/60 L 100 12/12/18 15:47 150 H 20 112/81 100 12/12/18 15:19 119 H 18 97/77 L 12/12/18 15:00 132 H 20 92/60 L 96 12/12/18 14:24 113 H 21 89/57 L 12/12/18 14:22 36.9 C 130 H 24 89/57 L 100 Laboratory Results 12/12/18 12/12/18 12/12/18 Range/Units 17:49 17:49 17:49 WBC (4.8-10.8) K/uL RBC (4.2-5.4) M/uL Hgb (12.0-16.0) g/dL Hct (37-47) % MCV (80-100) fL MCH (25-34) pg MCHC (32-36) g/dL RDW Std Deviation (36.4-46.3) fL RDW Coeff of Hari (11.5-14.5) % Plt Count (130-400) K/uL MPV (7.4-10.4) fL Immature Gran % (Auto) % Neut % (Auto) % Lymph % (Auto) % [place] % (Auto) % Eos % (Auto) % Baso % (Auto) % Immature Gran # (Auto) (0.00-0.02) K/uL Neut # (Auto) (1.4-6.5) K/uL Lymph # (Auto) (1.2-3.4) K/uL [place] # (Auto) (0.11-0.59) K/uL Eos # (Auto) (0-0.5) K/uL Baso # (Auto) (0-0.2) K/uL Echinocytes PT (9.0-12.0) Seconds INR (0.9-1.1) APTT (21.0-31.0) Seconds PTT Ratio Sodium (136-145) mmol/L Potassium (3.5-5.1) mmol/L Chloride (98-107) mmol/L Carbon Dioxide (21-32) mmol/L Anion Gap (3-11) BUN (7-18) mg/dl Creatinine (0.6-1.2) mg/dl Est Cr Clr Drug Dosing Est GFR ( Amer) Est GFR (Non-Af Amer) BUN/Creatinine Ratio (10-20) Glucose (70-99) mg/dl Osmolality (280-300) mOsm/kg Calcium (8.5-10.1) mg/dl Magnesium (1.8-2.4) mg/dl Total Bilirubin (0.2-1) mg/dl Direct Bilirubin (0-0.2) mg/dl AST (15-37) U/L ALT (12-78) U/L Alkaline Phosphatase (45-117) U/L Total Creatine Kinase (26-192) U/L Troponin I (0-0.045) ng/ml Total Protein (6.4-8.2) gm/dl Albumin (3.4-5.0) gm/dl Lipase (73-393) U/L Urine Color Yellow Urine Appearance Cloudy H (Clear) Urine pH 5.0 (4.5-7.5) Ur Specific [place] 1.015 (1.000-1.030) Urine Protein 2+ H (Negative) Urine Glucose (UA) Negative (Negative) Urine Ketones Negative (Negative) Urine Blood 2+ H (Negative) Urine Nitrite Negative (Negative) Urine Bilirubin Negative (Negative) Urine Urobilinogen Negative (Negative) Ur Leukocyte Esterase 3+ H (Negative) Urine WBC (Auto) >30 H (0-5) /hpf Urine RBC (Auto) 5-10 H (0-4) /hpf U Hyaline Cast (Auto) 1-5 (0-5) /lpf U Epithel Cells (Auto) 20-30 H (0-5) /lpf Urine Bacteria (Auto) 2+ H (Negative) Urine Osmolality 313 L (500-800) mOsm/kg Ur Random Creatinine 94.4 mg/dl Nasal Screen MRSA (PCR) (Negative) 12/12/18 12/12/18 12/12/18 Range/Units 17:32 14:37 14:37 WBC (4.8-10.8) K/uL RBC (4.2-5.4) M/uL Hgb (12.0-16.0) g/dL Hct (37-47) % MCV (80-100) fL MCH (25-34) pg MCHC (32-36) g/dL RDW Std Deviation (36.4-46.3) fL RDW Coeff of Hari (11.5-14.5) % Plt Count (130-400) K/uL MPV (7.4-10.4) fL Immature Gran % (Auto) % Neut % (Auto) % Lymph % (Auto) % [place] % (Auto) % Eos % (Auto) % Baso % (Auto) % Immature Gran # (Auto) (0.00-0.02) K/uL Neut # (Auto) (1.4-6.5) K/uL Lymph # (Auto) (1.2-3.4) K/uL [place] # (Auto) (0.11-0.59) K/uL Eos # (Auto) (0-0.5) K/uL Baso # (Auto) (0-0.2) K/uL Echinocytes PT 11.2 (9.0-12.0) Seconds INR 1.1 (0.9-1.1) APTT 32.9 H (21.0-31.0) Seconds PTT Ratio 1.2 Sodium 130 L (136-145) mmol/L Potassium 4.7 (3.5-5.1) mmol/L Chloride 99 (98-107) mmol/L Carbon Dioxide 18 L (21-32) mmol/L Anion Gap 12.0 H (3-11) BUN 73 H (7-18) mg/dl Creatinine 4.27 H (0.6-1.2) mg/dl Est Cr Clr Drug Dosing Not Reportable Est GFR ( Amer) 11.9 Est GFR (Non-Af Amer) 10.3 BUN/Creatinine Ratio 17.1 (10-20) Glucose 93 (70-99) mg/dl Osmolality (280-300) mOsm/kg Calcium 9.0 (8.5-10.1) mg/dl Magnesium 3.0 H (1.8-2.4) mg/dl Total Bilirubin 0.3 (0.2-1) mg/dl Direct Bilirubin 0.2 (0-0.2) mg/dl AST 50 H (15-37) U/L ALT 55 (12-78) U/L Alkaline Phosphatase 151 H (45-117) U/L Total Creatine Kinase 155 (26-192) U/L Troponin I < 0.015 (0-0.045) ng/ml Total Protein 7.7 (6.4-8.2) gm/dl Albumin 2.4 L (3.4-5.0) gm/dl Lipase 56 L (73-393) U/L Urine Color Urine Appearance (Clear) Urine pH (4.5-7.5) Ur Specific [place] (1.000-1.030) Urine Protein (Negative) Urine Glucose (UA) (Negative) Urine Ketones (Negative) Urine Blood (Negative) Urine Nitrite (Negative) Urine Bilirubin (Negative) Urine Urobilinogen (Negative) Ur Leukocyte Esterase (Negative) Urine WBC (Auto) (0-5) /hpf Urine RBC (Auto) (0-4) /hpf U Hyaline Cast (Auto) (0-5) /lpf U Epithel Cells (Auto) (0-5) /lpf Urine Bacteria (Auto) (Negative) Urine Osmolality (500-800) mOsm/kg Ur Random Creatinine mg/dl Nasal Screen MRSA (PCR) Negative (Negative) 12/12/18 12/12/18 Range/Units 14:37 14:37 WBC 8.92 (4.8-10.8) K/uL RBC 3.78 L (4.2-5.4) M/uL Hgb 11.5 L (12.0-16.0) g/dL Hct 32.9 L (37-47) % MCV 87.0 (80-100) fL MCH 30.4 (25-34) pg MCHC 35.0 (32-36) g/dL RDW Std Deviation 48.9 H (36.4-46.3) fL RDW Coeff of Hari 15.2 H (11.5-14.5) % Plt Count 368 (130-400) K/uL MPV 9.5 (7.4-10.4) fL Immature Gran % (Auto) 0.6 % Neut % (Auto) 87.2 % Lymph % (Auto) 5.7 % [place] % (Auto) 6.1 % Eos % (Auto) 0.3 % Baso % (Auto) 0.1 % Immature Gran # (Auto) 0.05 H (0.00-0.02) K/uL Neut # (Auto) 7.78 H (1.4-6.5) K/uL Lymph # (Auto) 0.51 L (1.2-3.4) K/uL [place] # (Auto) 0.54 (0.11-0.59) K/uL Eos # (Auto) 0.03 (0-0.5) K/uL Baso # (Auto) 0.01 (0-0.2) K/uL Echinocytes 2+ PT (9.0-12.0) Seconds INR (0.9-1.1) APTT (21.0-31.0) Seconds PTT Ratio Sodium (136-145) mmol/L Potassium (3.5-5.1) mmol/L Chloride (98-107) mmol/L Carbon Dioxide (21-32) mmol/L Anion Gap (3-11) BUN (7-18) mg/dl Creatinine (0.6-1.2) mg/dl Est Cr Clr Drug Dosing Est GFR ( Amer) Est GFR (Non-Af Amer) BUN/Creatinine Ratio (10-20) Glucose (70-99) mg/dl Osmolality 291 (280-300) mOsm/kg Calcium (8.5-10.1) mg/dl Magnesium (1.8-2.4) mg/dl Total Bilirubin (0.2-1) mg/dl Direct Bilirubin (0-0.2) mg/dl AST (15-37) U/L ALT (12-78) U/L Alkaline Phosphatase (45-117) U/L Total Creatine Kinase (26-192) U/L Troponin I (0-0.045) ng/ml Total Protein (6.4-8.2) gm/dl Albumin (3.4-5.0) gm/dl Lipase (73-393) U/L Urine Color Urine Appearance (Clear) Urine pH (4.5-7.5) Ur Specific [place] (1.000-1.030) Urine Protein (Negative) Urine Glucose (UA) (Negative) Urine Ketones (Negative) Urine Blood (Negative) Urine Nitrite (Negative) Urine Bilirubin (Negative) Urine Urobilinogen (Negative) Ur Leukocyte Esterase (Negative) Urine WBC (Auto) (0-5) /hpf Urine RBC (Auto) (0-4) /hpf U Hyaline Cast (Auto) (0-5) /lpf U Epithel Cells (Auto) (0-5) /lpf Urine Bacteria (Auto) (Negative) Urine Osmolality (500-800) mOsm/kg Ur Random Creatinine mg/dl Nasal Screen MRSA (PCR) (Negative)
[2018-12-12] MEDS: NORMOSOL-R 1,000 ML IV SCH (20:30)
--- NOTE | 2018-12-12 20:33 | Pharmacy Report ---
Glycemic Control Consultation - Date of Service December 12, 2018 - Scope Scope: Glycemic Pharmacist consulted by Dr Cha on 12/12 for glycemic control and to write orders per [facility] inpatient glycemic control protocol - Objective Weight: 82.7 kg Accuchecks BSG (last 24hrs): 12/12/18 14:37 Glucose 93 Laboratory Data (last 24hrs): 12/12/18 12/12/18 14:37 14:37 Potassium 4.7 Carbon Dioxide 18 L Anion Gap 12.0 H Creatinine 4.27 H Est Cr Clr Drug Dosing Not Reportable Osmolality 291 - Recent Pertinent Medications Outpatient Anti-diabetic Regimen: * n/a - no history of diabetes Risk Factors for Insulin Resistance: * Pressors: NE * IVF: Heparin drip, propofol * Diet: NPO * Mechanical Ventilation n - Assessment & Plan Assessment & Plan: ASSESSMENT: * 62 y/o female admitted with metabolic acidosis, due to TERRY or possible ingestion. No known history of diabetes and BSG upon admission was 93 mg/dL. Patient has multiple stressors on board to potentially cause insulin resistance. Novolog has been ordered with correctional and prandial insulin. Will order correctional insulin only for now as she is NPO and no history of diabetes. PLAN FOR INPATIENT GLYCEMIC CONTROL: * Bolus insulin * NovoLog per scale ACHS or Q6hrs while NPO * Goal Range: Low 140 mg/dL - High 180 mg/dL * Correction Factor: 30 mg/dL/unit * Nutritional / Prandial insulin per carb ratio of 1 unit per -- grams CHO consumed * ICU protocol for hyperglycemia in place in case BSGs would warrant an insulin infusion * No need to obtain A1c unless BSGs become elevated * Please note that the plan above was derived based on current level of insulin resistance and hospital stress. These recommendations are appropriate for inpatient admission only. Plan of care upon discharge will need to be reassessed to avoid potential outpatient hypo/hyperglycemia. Thank you.
[2018-12-12] MEDS: FAMOTIDINE 20 MG in SYRINGE 3 ML IV SCH (20:50)
[2018-12-12] MEDS ORDERED: DOXYCYCLINE HYCLATE 200 MG in DEXTROSE 5% 100 ML IV STA (20:53)
--- NOTE | 2018-12-12 20:58 | Ultrasound Report ---
US abdomen limited HISTORY: Pain. Nausea. RUQ. COMPARISON: None. FINDINGS: Pancreas: The pancreas demonstrates a normal echotexture. Liver: Unremarkable. Gallbladder: No gallbladder wall thickening. No gallstones. CBD: 6 mm Right kidney: No hydronephrosis. IMPRESSION: No significant abnormality identified within the within the right upper quadrant. The above report was generated using voice recognition software. It may contain grammatical, syntax or spelling errors. Electronically signed by: Sundar Benson M.D. 12/12/2018 8:57 PM
[2018-12-12] MEDS ORDERED: cefTRIAXone SODIUM 1,000 MG in DEXTROSE 5% 50 ML IV SCH (21:00)
--- NOTE | 2018-12-12 21:00 | Ultrasound Report ---
US renal/blad retro comp HISTORY: Renal insufficiency miguel COMPARISON: None. FINDINGS: Right kidney: Maximum dimension 10 cm. No evidence for hydronephrosis. Normal corticomedullary differ entiation and cortical thickness. Left kidney: Maximum dimension 10.4 cm. No evidence for hydronephrosis. Normal corticomedullary diff erentiation and cortical thickness. Bladder: No bladder wall thickening. The bilateral ureteral jets were identified. IMPRESSION: Normal renal ultrasound. The above report was generated using voice recognition software. It may contain grammatical, syntax or spelling errors. Electronically signed by: Sundar Benson M.D. 12/12/2018 8:58 PM
[2018-12-12] MEDS ORDERED: HEPARIN SOD 5,000 UNIT/0.5 ML VIAL SQ SCH (22:00)
--- NOTE | 2018-12-12 23:55 | Emergency Department Note ---
Entered by Jayro Colbert acting as a scribe for Jeremy Olsen History of Present Illness General Chief complaint: Dehydration Time Seen by Provider: 12/12/18 14:34 Source: patient and family Limitations: other (Patient status) History of Present Illness Provider complaint: Diarrhea/Incontinence Onset (ago): unknown Location: head (Slurring speech) Pain Consistency: + other (worsening) Quality: + other (Diarrhea/Slurring speech) Associated symptoms: + other (Not taking medication) Treatments prior to arrival: none This history is limited secondary to the patient's status. The patient is a 62 year old female who presents to the Emergency Room with complaints of diarrhea and incontinence. The patient's Niece/small animal caretaker is at bedside and adds that the patient has not been caring for herself for the past 1 month. She has not been able to get her into the shower for the past month and has noticed that she has not been taking her daily medications for the past 2-3 weeks. The niece notes a history of alcohol induced dementia and alcoholism, but states that she has not had a drink in over 2 years. Nursing staff states that when EMS arrived to the patient's house, it was full of dog feces. The patient was covered in dog feces as well. It appeared obvious that the patient was not taking care of herself. Of note, the patient's was brought to the ED by EMS as well and is currently in the adjacent room. He also has a history of alcoholism and is also here for altered mental status. He is also covered in dog feces. Home Medications Home Medications Medication Instructions Recorded Confirmed Type aspirin 81 mg PO DAILY 12/12/18 12/12/18 History atorvastatin 40 mg PO DAILY 12/12/18 12/12/18 History calcium carbonate [Tums] 200 mg PO DIRECTED PRN 12/12/18 12/12/18 History carvedilol 3.125 mg PO QAM 12/12/18 12/12/18 History carvedilol 12.5 mg PO BIDM 12/12/18 12/12/18 History escitalopram oxalate 10 mg PO DAILY 12/12/18 12/12/18 History ferrous sulfate 325 mg PO BID 12/12/18 12/12/18 History fluticasone propionate 2 spray INTRANASAL DAILY 12/12/18 12/12/18 History folic acid 1 mg PO DAILY 12/12/18 12/12/18 History magnesium oxide 400 mg PO BID 12/12/18 12/12/18 History multivitamin,hx-rsdd-jobaxnsv 1 tab PO DAILY 12/12/18 12/12/18 History [Therems-M] omeprazole 20 mg PO DAILY 12/12/18 12/12/18 History rivaroxaban [Xarelto] 15 mg PO PM 12/12/18 12/12/18 History spironolactone 25 mg PO DAILY 12/12/18 12/12/18 History thiamine HCl (vitamin B1) [Vitamin 50 mg PO BID 12/12/18 12/12/18 History B-1] Allergies Allergy/AdvReac Type Severity Reaction Status Date / Time No Known Allergies Allergy Verified 12/12/18 17:42 Past Med/Surg History Medical History Trimalleolar fracture of left ankle (Resolved) Dislocation of ankle joint (Resolved) Trimalleolar fracture of right ankle (Resolved) GERD (gastroesophageal reflux disease) (Chronic) Hyperlipidemia (Chronic) [facility] (current) use of 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 (Chronic) Alcohol dependence (Chronic) Acute liver disease (Chronic) Hypotension (Resolved) Rapid atrial fibrillation (Chronic) High anion gap metabolic acidosis Social History Preferred Language: Hungarian [employer] Required: Yes Beliefs That Will Affect Care: None marital status: Current Living Situation: Spouse Other Information That Helps Us Care for You: No Feels Safe at Home: Declines to Answer Smoking Status: Current every day smoker Hx Alcohol Use: Yes (Per Report, patient unable to answer) Hx Substance Use: No Review of Systems See HPI for pertinent positives & negatives. and A total of 10 systems reviewed and were otherwise negative Physical Exam Vital Signs Vital Signs - 24 hr 12/12/18 14:22 12/12/18 14:24 12/12/18 15:00 Temperature 36.9 C Temperature Source Oral Sepsis Recent Fever Within 48 Hours No Sepsis New/Unexplained Change in Mental Status No Sepsis Action Taken by Nursing No Action Required End-Tidal CO2 Pulse Rate 130 H 113 H Pulse Rate [Apical] 132 H Pulse Rate from SpO2 Sensor Respiratory Rate 24 21 20 Respiratory Effort / Characteristics Respiratory Depth Respiratory Pattern Blood Pressure 89/57 L 89/57 L Blood Pressure [Left Arm] 92/60 L Blood Pressure Mean 67 67 Blood Pressure Mean [Left Arm] 70 Pulse Oximetry 100 96 Oxygen Delivery Method Room Air Fraction of Inspired Oxygen SaO2/FiO2 Ratio 12/12/18 15:19 12/12/18 15:47 12/12/18 15:51 Temperature Temperature Source Sepsis Recent Fever Within 48 Hours Sepsis New/Unexplained Change in Mental Status Sepsis Action Taken by Nursing End-Tidal CO2 Pulse Rate 119 H 150 H Pulse Rate [Apical] 129 H Pulse Rate from SpO2 Sensor 133 H Respiratory Rate 18 20 16 Respiratory Effort / Characteristics Respiratory Depth Respiratory Pattern Blood Pressure 97/77 L 112/81 Blood Pressure [Left Arm] 90/60 L Blood Pressure Mean 83 91 Blood Pressure Mean [Left Arm] 70 Pulse Oximetry 100 100 Oxygen Delivery Method Room Air Fraction of Inspired Oxygen SaO2/FiO2 Ratio 12/12/18 16:17 12/12/18 16:27 12/12/18 16:28 Temperature Temperature Source Sepsis Recent Fever Within 48 Hours Sepsis New/Unexplained Change in Mental Status Sepsis Action Taken by Nursing End-Tidal CO2 35 35 Pulse Rate 126 H 135 H Pulse Rate [Apical] 150 H Pulse Rate from SpO2 Sensor 137 H Respiratory Rate 24 Respiratory Effort / Characteristics Respiratory Depth Respiratory Pattern Blood Pressure 75/51 L Blood Pressure [Left Arm] 75/51 L Blood Pressure Mean 59 Blood Pressure Mean [Left Arm] 59 Pulse Oximetry 99 100 Oxygen Delivery Method Fraction of Inspired Oxygen 60 SaO2/FiO2 Ratio 12/12/18 16:31 12/12/18 16:32 12/12/18 16:36 Temperature Temperature Source Sepsis Recent Fever Within 48 Hours Sepsis New/Unexplained Change in Mental Status Sepsis Action Taken by Nursing End-Tidal CO2 50 49 Pulse Rate 98 H 104 H Pulse Rate [Apical] 95 H 105 H Pulse Rate from SpO2 Sensor 97 H 104 H Respiratory Rate 16 Respiratory Effort / Characteristics Respiratory Depth Respiratory Pattern Blood Pressure 75/52 L 93/58 L Blood Pressure [Left Arm] 80/58 L 88/54 L Blood Pressure Mean 59 69 Blood Pressure Mean [Left Arm] 65 65 Pulse Oximetry 97 96 Oxygen Delivery Method Fraction of Inspired Oxygen SaO2/FiO2 Ratio 12/12/18 16:40 12/12/18 16:41 12/12/18 17:19 Temperature Temperature Source Sepsis Recent Fever Within 48 Hours Sepsis New/Unexplained Change in Mental Status Sepsis Action Taken by Nursing End-Tidal CO2 54 38 Pulse Rate 109 H 101 H Pulse Rate [Apical] 105 H Pulse Rate from SpO2 Sensor 109 H Respiratory Rate 16 18 Respiratory Effort / Characteristics Respiratory Depth Respiratory Pattern Blood Pressure 97/62 L Blood Pressure [Left Arm] 88/52 L Blood Pressure Mean 73 Blood Pressure Mean [Left Arm] 64 Pulse Oximetry 96 96 Oxygen Delivery Method Mechanical Vent Fraction of Inspired Oxygen 60 SaO2/FiO2 Ratio 12/12/18 17:37 12/12/18 17:38 12/12/18 17:43 Temperature Temperature Source Sepsis Recent Fever Within 48 Hours Sepsis New/Unexplained Change in Mental Status Sepsis Action Taken by Nursing End-Tidal CO2 29 29 29 Pulse Rate 85 85 83 Pulse Rate [Apical] Pulse Rate from SpO2 Sensor 85 83 Respiratory Rate Respiratory Effort / Characteristics Respiratory Depth Respiratory Pattern Blood Pressure 78/51 L 79/53 L Blood Pressure [Left Arm] Blood Pressure Mean 60 61 71 Blood Pressure Mean [Left Arm] Pulse Oximetry 100 100 Oxygen Delivery Method Mechanical Vent Mechanical Vent Fraction of Inspired Oxygen 60 60 SaO2/FiO2 Ratio 12/12/18 17:45 12/12/18 17:49 12/12/18 18:00 Temperature 36.3 C L Temperature Source Oral Sepsis Recent Fever Within 48 Hours Sepsis New/Unexplained Change in Mental Status Sepsis Action Taken by Nursing End-Tidal CO2 29 35 26 Pulse Rate 84 83 Pulse Rate [Apical] 85 Pulse Rate from SpO2 Sensor Respiratory Rate 18 22 Respiratory Effort / Characteristics Mechanically Ventilated Respiratory Depth Normal Respiratory Pattern Regular Blood Pressure 77/52 L 77/53 L Blood Pressure [Left Arm] 77/52 L Blood Pressure Mean 60 61 Blood Pressure Mean [Left Arm] 60 Pulse Oximetry 100 100 93 Oxygen Delivery Method Mechanical Vent Mechanical Vent Mechanical Vent Fraction of Inspired Oxygen 60 60 60 SaO2/FiO2 Ratio 166 12/12/18 18:15 12/12/18 18:30 12/12/18 19:55 Temperature Temperature Source Sepsis Recent Fever Within 48 Hours Sepsis New/Unexplained Change in Mental Status Sepsis Action Taken by Nursing End-Tidal CO2 25 22 Pulse Rate 86 84 Pulse Rate [Apical] Pulse Rate from SpO2 Sensor Respiratory Rate 22 22 22 Respiratory Effort / Characteristics Respiratory Depth Respiratory Pattern Blood Pressure 108/67 127/80 Blood Pressure [Left Arm] Blood Pressure Mean 80 95 Blood Pressure Mean [Left Arm] Pulse Oximetry 97 100 Oxygen Delivery Method Mechanical Vent Fraction of Inspired Oxygen 60 60 SaO2/FiO2 Ratio 12/12/18 20:00 12/12/18 21:30 Temperature Temperature Source Sepsis Recent Fever Within 48 Hours Sepsis New/Unexplained Change in Mental Status Sepsis Action Taken by Nursing End-Tidal CO2 18 Pulse Rate 76 Pulse Rate [Apical] Pulse Rate from SpO2 Sensor Respiratory Rate 22 Respiratory Effort / Characteristics Mechanically Ventilated Respiratory Depth Respiratory Pattern Blood Pressure Blood Pressure [Left Arm] Blood Pressure Mean Blood Pressure Mean [Left Arm] Pulse Oximetry 100 Oxygen Delivery Method Mechanical Vent Fraction of Inspired Oxygen 40 30 SaO2/FiO2 Ratio Physical Exam GENERAL: Distressed. Covered in dog feces, with foul smell. Patient is trem ulous. HENT: Exam performed. -Head: Normocephalic and atraumatic. -Right Ear: External ear normal. No mastoid tenderness. -Left Ear: External ear normal. No mastoid tenderness. -Mouth/Throat: Dry mucous membranes. Poor dentition with teeth, multiple dental caries, and multiple loose anterior teeth. The patient keeps wiggling her front tooth. EYES: Conjunctivae and EOM are normal. Pupils are equal, round, and reactive to light. Right eye exhibits no discharge. Left eye exhibits no discharge. No scleral icterus. ____ NECK: Normal range of motion. Neck supple. No JVD present. No spinous process tenderness present. No carotid bruit present. No rigidity. No tracheal deviation and normal range of motion present. No Brudzinski's sign and no Kernig's sign noted. ____ CV: Tachycardic and irregularly irregular. There is no peripheral edema. Palpable radial pulses bue. ____ PULM/CHEST: Rhonchi bilaterally. Expiratory wheezes. She has no rales. - Chest Wall: She exhibits no tenderness. ____ ABD: The abdomen is soft. Bowel sounds are normal. She has no distension. No mass is present. There is no tenderness. There is no rebound, no guarding, no Bocanegra's sign and no tenderness at McBurney's point. Rovsig negative NEURO: Motor and sensation are grossly intact. Tremulous. SKIN: Patient is dirty and covered in dog feces. Procedures Intubation Time out performed: Yes sedative: Etomidate Mg Given: 20 paralytic: Succinylcholine Mg Given: 100 Laryngoscope: Chas (3; unsuccessful) Assist Device Used: fiber optic device (Glidescope) ET Tube Size: 7 ET Tube Uncuffed: Yes Tube Secured Depth (cm): 23 Tube Secured Location: teeth Tube Placement Confirmation: visualized tube passing through cords, equal breath sounds bilaterally, no breath sounds over epigastrium and confirmation by capnometry Patient Tolerated Procedure: well Intubation Complications: difficult intubation and other (2 front teeth were knocked loose) Additional Comments: Difficult intubation. DL was attempted with MAC 3 however cords were unable to be visiualized. Blade was removed and the patient was bagged with ambu bag. Second attempt was conducted using glidescope. The patients front two teeth that were already loose and appared to be decayed were knocked loose during the difficult intubation with glidescope. Cords were visualized with glidescope and the ETT was placed through the cords, visualized on the screen. Positive color change. There was no bleeding after the teeth were knocked loose. One tooth was able to be retrieved. The second tooth was found to be in the patient's oral cavity, we attempted to retrieve it with forcps however were unable to as the tooth went further in the patients mouth. There is no concern that it went into the patient's airway as the ETT tube was already in the airway. Course 1437: The patient was evaluated in room C3, and a complete history and physical examination were performed. On the initial exam the patient is tachycardic with an irregular rate, appears to be A. fib with RVR. The patient is hypotensive and has a a tremor. IV access was obtained. POC glucose found to be in the 60s. Given the patient's history of alcoholism, as well as that her is in the adjacent room with similar complaints and thought to be intoxicated, it is thought that the patient could be suffering DTs and in A. fib with RVR due to the patient's alcoholism. There is high concern for Warnicke's encephalopathy also. Patient will be given thiamine prior to any glucose administration. After thiamine the patient will be given a banana bag as well as D5 normal saline. 1 mg Ativan ordered to help with the tremors and see if that helps the heart rate and A. fib. NSS bolus ordered 1456: Patient received Ativan at this time and her heart rate improved to 120. Her blood pressure is 92/50. Nursing staff is working on a second line. The patient will get Thiamine, Banana Bag, and D5 normal saline. The family reports that the patient has not been drinking alcohol, but states that the next door has been binge drinking. The niece at bedside states that she thinks that the patient has not been taking any of her home medications. She is not sure the list of her home medications, however she knows that the patient is on carvedilol and states she is confident she has not been taking it. She does not know the dosage of the carvedilol when the last time she took it. Patient is still tremulous, will repeat the Ativan. 1520: Patient is becoming more agitated, her respirations are decreasing. We are having a difficult time obtaining a blood pressure on her due to her tremor. She is still in A. fib with RVR. I discussed the patient's case with her niece who brought her into the emergency department and called EMS for the patient be brought into the emergency department. She states that the patient would want everything done if she needs to be placed on a ventilator she would be okay with it. We did not consult the patient's who is in the adjacent room and being evaluated for altered mental status as he was not found to be clinically competent to help make this decision. The patient was moved to room A1 for sedation and emergent intubation giving her decreasing respirations and increasingly agitated. 1530: ICU team at bedside to evaluate the patient. 1536: Patient received 20 ETOM and 100 Succ. Intubation was very difficult. See procedure note. The patients front two teeth that were already loose and a ppared to be decayed were knocked loose during the difficult intubation. There was no bleeding after the teeth were knocked loose. One tooth was able to be retrieved. The second tooth was found to be in the patient's oral cavity, we attempted to retrieve it with forcps however were unable to as the tooth went further in the patients mouth. There is no concern that it went into the patient's airway as the ETT tube was already in the airway. ICU team Dr. Cha made aware of the difficult intubation and the tooth in the mouth. 1610: The patient's business info consultant arrived to the 's bedside at this time. He notes that the began drinking again last week. He believes that when he drinks, the patient drinks, and he subsequently stops taking care of her. 1615: The original AccuCheck BSG was at 60, so Thiamine and D5 were ordered. The sugar on laboratory studies came back WNL. D5 will be held. Patient will receive Banana Bag. Labs show acute kidney injury. Fluid bolus is going. 1625: The patient is still very agitated on propofol drip. She is flailing in the bed and trying to rip out her IVs. She will be started on a Fentanyl drip. She has received multiple dosages of Ativan but is still agitated. She will recieve a bolus of vecuronium to paralyze her so she stops flailing in the bed and does not rip out her lines or dislodge her ETT which was very difficult to p lace. Her blood pressure is 75/51 and is still in A-fib RVR in the 150s. We will Cardiovert. 1627: Patient received 8.3 of Vecc. 1630 100 J SYCN and SHOCK. 1631: Post cardioversion the patient is in Sinus Rhythm at 95. AL interval is 218, QRS is 108, QTC is 472. No BEN or STD. 1632: EKG shows Sinus Rhytm at 96, AL is 206, QRS is 108, QTC is 626. No BEN or STD. 1643: The patient's blood pressure is 97/62. She will go to CT STAT now to rule out ICH/SDH given her history of alcoholism. Dr. Cha states that the patient should go straight to the floor from CT. He states if the patient's head CT is negative to begin heparin. 1720: I accompanied the pateint to CT. CT viewed by me showed no ICH. I helped transport the patient to the ICU. Dr. Allen, [facility] [place] who will be adm itting the patient was also in the ICU and will follow up on official read of CT of the head. 1727: I discussed the case with the patient's sister Aby Peters - Power of Heat Treater Apprentice. She called from number [phone]. Administered Medications Fentanyl Citrate (Fentanyl Drip) 1,250 mcg in 250 mls @ 5 mls/hr IV .Q24H [facility]; Protocol Stop: 12/26/18 16:14 Last Titration: 12/12/18 19:10 Dose: 25 mcg/hr, 5 mls/hr Documented by: [id number] Cosigned by: [id number] Admin: 12/12/18 16:35 Dose: 25 mcg/hr, 5 mls/hr Documented by: [id number] Cosigned by: [id number] Parenteral Electrolytes (Normosol-R) 1,000 mls @ 80 mls/hr IV .[id number] [facility] Stop: 01/11/19 17:28 Last Infusion: 12/12/18 22:58 Dose: 80 mls/hr Documented by: [id number] Admin: 12/12/18 20:30 Dose: 80 mls/hr Documented by: [id number] Propofol (Diprivan) 1,000 mg in 100 mls @ 2.502 mls/hr IV .Q24H [facility]; Protocol Stop: 12/15/18 17:28 Last Titration: 12/12/18 19:10 Dose: 10 mcg/kg/min, 5 mls/hr Documented by: [id number] Cosigned by: [id number] Admin: 12/12/18 18:17 Dose: 10 mcg/kg/min, 5 mls/hr Documented by: [id number] Cosigned by: [id number] Famotidine 20 mg/ Syringe 5 mls @ 2.5 mls/min IV Q12H [facility] Stop: 01/11/19 19:59 Last Admin: 12/12/18 20:50 Dose: 2.5 mls/min Documented by: [id number] Norepinephrine Bitartrate 8 mg (/ Dextrose) 508 mls @ 15.89 mls/hr IV .Q24H [facility]; Protocol Stop: 01/11/19 17:44 Last Titration: 12/12/18 22:58 Dose: 0.04 mcg/kg/min, 12.7 mls/hr Documented by: [id number] Titration: 12/12/18 22:14 Dose: 0.05 mcg/kg/min, 15.9 mls/hr Documented by: [id number] Titration: 12/12/18 20:10 Dose: 0.06 mcg/kg/min, 19.1 mls/hr Documented by: [id number] Titration: 12/12/18 19:10 Dose: 0.08 mcg/kg/min, 25.4 mls/hr Documented by: [id number] Cosigned by: [id number] Admin: 12/12/18 18:09 Dose: 0.1 mcg/kg/min, 31.8 mls/hr Documented by: [id number] Cosigned by: [id number] Heparin Sodium/Dextrose (Heparin Sodium/Dextrose) 25,000 units in 500 mls @ 25 mls/hr IV .Q20H [facility]; Protocol Stop: 01/11/19 18:29 Last Titration: 12/12/18 19:10 Dose: 1,250 units/hr, 25 mls/hr Documented by: [id number] Cosigned by: [id number] Admin: 12/12/18 18:33 Dose: 1,250 units/hr, 25 mls/hr Documented by: [id number] Cosigned by: [id number] Ceftriaxone Sodium 1,000 mg/ (Dextrose) 50 mls @ 100 mls/hr IV Q24H [facility]; Protocol Stop: 12/14/18 20:59 Last Infusion: 12/12/18 21:59 Dose: 0 mls/hr Documented by: [id number] Admin: 12/12/18 21:29 Dose: 100 mls/hr Documented by: [id number] Doxycycline Hyclate 200 mg/ (Dextrose) 120 mls @ 50 mls/hr IV NOW STA Stop: 12/12/18 23:16 Last Admin: 12/12/18 22:14 Dose: 50 mls/hr Documented by: [id number] Insulin Aspart (Novolog Flexpen) 0 units SC Q6 [facility] Stop: 01/11/19 18:59 Last Admin: 12/12/18 18:37 Dose: Not Given Documented by: [id number] Cosigned by: [id number] Discontinued Medications Heparin Sodium/Dextrose () 1 ea IV NOW STA; Protocol Stop: 12/12/18 17:30 Last Admin: 12/12/18 18:22 Dose: Not Given Documented by: [id number] Sodium Chloride (Nss 1000ml) 1,000 mls @ 999 mls/hr IV .Q1H1M ONE Stop: 12/12/18 15:43 Last Infusion: 12/12/18 16:56 Dose: 0 mls/hr Documented by: [id number] Admin: 12/12/18 14:55 Dose: 999 mls/hr Documented by: [id number] Lorazepam (Ativan) 1 mg in 2 mls @ 2 mls/min IV NOW STA Stop: 12/12/18 14:44 Last Admin: 12/12/18 14:45 Dose: Not Given Documented by: [id number] Thiamine HCl 500 mg/ Sodium (Chloride) 105 mls @ 210 mls/hr IV ONE ONE Stop: 12/12/18 15:29 Last Infusion: 12/12/18 16:23 Dose: 0 mls/hr Documented by: [id number] Admin: 12/12/18 15:53 Dose: 210 mls/hr Documented by: [id number] Multivitamins 10 ml/ Thiamine HCl 100 mg/ Folic Acid 1 mg/Sodium Chloride 1,011.2 mls @ 1,011.2 mls/hr IV .Q1H [facility] Stop: 12/12/18 15:59 Last Infusion: 12/12/18 16:54 Dose: 0 mls/hr Documented by: [id number] Admin: 12/12/18 15:54 Dose: 1,011.2 mls/hr Documented by: [id number] Dextrose/Sodium Chloride (D5w And Nss) 1,000 mls @ 999 mls/hr IV .Q1H1M [facility] Stop: 12/12/18 17:00 Last Admin: 12/12/18 16:11 Dose: Not Given Documented by: [id number] Lorazepam (Ativan) 1 mg in 2 mls @ 2 mls/min IV NOW STA Stop: 12/12/18 15:11 Last Admin: 12/12/18 15:54 Dose: 2 mls/min Documented by: [id number] Propofol (Diprivan) 1,000 mg in 100 mls @ 2.502 mls/hr IV .Q24H [facility]; Protocol Stop: 12/15/18 15:59 Last Titration: 12/12/18 18:17 Dose: 0 mcg/kg/min, 0 mls/hr Documented by: [id number] Admin: 12/12/18 16:01 Dose: 5 mcg/kg/min, 2.5 mls/hr Documented by: [id number] Cosigned by: [id number] Sodium Chloride (Nss 1000ml) 1,000 mls @ 999 mls/hr IV .Q1H1M ONE Stop: 12/12/18 18:40 Last Infusion: 12/12/18 19:17 Dose: 0 mls/hr Documented by: [id number] Admin: 12/12/18 18:16 Dose: 999 mls/hr Documented by: [id number] Sodium Chloride (Nss 1000ml) 1,000 mls @ 999 mls/hr IV .Q1H1M ONE Stop: 12/12/18 18:41 Last Infusion: 12/12/18 20:08 Dose: 0 mls/hr Documented by: [id number] Admin: 12/12/18 19:07 Dose: 999 mls/hr Documented by: [id number] Heparin Sodium (Porcine) 5,000 (units/ Syringe) 5 mls @ 10 mls/min IV 1830 ONE Stop: 12/12/18 18:31 Last Admin: 12/12/18 18:33 Dose: 10 mls/min Documented by: [id number] Cosigned by: [id number] Fomepizole 1.24 gm/ Dextrose 101.24 mls @ 200 mls/hr IV 1845 ONE Stop: 12/12/18 19:15 Last Infusion: 12/12/18 20:38 Dose: 0 mls/hr Documented by: [id number] Admin: 12/12/18 20:07 Dose: 200 mls/hr Documented by: [id number] Lorazepam (Ativan) Confirm Administered Dose 2 mg .ROUTE .STK-MED ONE Stop: 12/12/18 14:39 Last Admin: 12/12/18 14:45 Dose: 1 mg Documented by: [id number] Miscellaneous () Confirm Administered Dose 1 ea .ROUTE .STK-MED ONE Stop: 12/12/18 15:28 Last Admin: 12/12/18 16:12 Dose: 1 ea Documented by: [id number] Propofol (Diprivan) Confirm Administered Dose 1,000 mg IV .STK-MED ONE Stop: 12/12/18 16:00 Last Admin: 12/12/18 16:12 Dose: Not Given Documented by: [id number] Sodium Bicarbonate (Sodium Bicarbonate 8.4%) 50 meq IV NOW STA Stop: 12/12/18 18:01 Last Admin: 12/12/18 18:09 Dose: 50 meq Documented by: [id number] Sodium Bicarbonate (Sodium Bicarbonate 8.4%) 50 meq IV NOW STA Stop: 12/12/18 18:02 Last Admin: 12/12/18 18:10 Dose: 50 meq Documented by: [id number] Medical Decision Making Medical Records Attestation: I reviewed the patient's medical records. Home Medications Current Medication List: was personally reviewed by me Laboratory Data Attestation: I reviewed the patient's lab results. Result diagrams: 12/12/18 14:37 12/12/18 14:37 Lab Results 12/12/18 12/12/18 12/12/18 Range/Units 14:37 14:37 14:37 WBC 8.92 (4.8-10.8) K/uL RBC 3.78 L (4.2-5.4) M/uL Hgb 11.5 L (12.0-16.0) g/dL Hct 32.9 L (37-47) % MCV 87.0 (80-100) fL MCH 30.4 (25-34) pg MCHC 35.0 (32-36) g/dL RDW Std Deviation 48.9 H (36.4-46.3) fL RDW Coeff of Hari 15.2 H (11.5-14.5) % Plt Count 368 (130-400) K/uL MPV 9.5 (7.4-10.4) fL Immature Gran % (Auto) 0.6 % Neut % (Auto) 87.2 % Lymph % (Auto) 5.7 % Archer % (Auto) 6.1 % Eos % (Auto) 0.3 % Baso % (Auto) 0.1 % Immature Gran # (Auto) 0.05 H (0.00-0.02) K/uL Neut # (Auto) 7.78 H (1.4-6.5) K/uL Lymph # (Auto) 0.51 L (1.2-3.4) K/uL Archer # (Auto) 0.54 (0.11-0.59) K/uL Eos # (Auto) 0.03 (0-0.5) K/uL Baso # (Auto) 0.01 (0-0.2) K/uL Echinocytes 2+ PT 11.2 (9.0-12.0) Seconds INR 1.1 (0.9-1.1) APTT 32.9 H (21.0-31.0) Seconds PTT Ratio 1.2 Sodium (136-145) mmol/L Potassium (3.5-5.1) mmol/L Chloride (98-107) mmol/L Carbon Dioxide (21-32) mmol/L Anion Gap (3-11) BUN (7-18) mg/dl Creatinine (0.6-1.2) mg/dl Est Cr Clr Drug Dosing Est GFR ( Amer) Est GFR (Non-Af Amer) BUN/Creatinine Ratio (10-20) Glucose (70-99) mg/dl Osmolality 291 (280-300) mOsm/kg Lactate (0.4-2.0) mmol/L Calcium (8.5-10.1) mg/dl Magnesium (1.8-2.4) mg/dl Total Bilirubin (0.2-1) mg/dl Direct Bilirubin (0-0.2) mg/dl AST (15-37) U/L ALT (12-78) U/L Alkaline Phosphatase (45-117) U/L Total Creatine Kinase (26-192) U/L Troponin I (0-0.045) ng/ml Total Protein (6.4-8.2) gm/dl Albumin (3.4-5.0) gm/dl Lipase (73-393) U/L Urine Color Urine Appearance (Clear) Urine pH (4.5-7.5) Ur Specific [place] (1.000-1.030) Urine Protein (Negative) Urine Glucose (UA) (Negative) Urine Ketones (Negative) Urine Blood (Negative) Urine Nitrite (Negative) Urine Bilirubin (Negative) Urine Urobilinogen (Negative) Ur Leukocyte Esterase (Negative) Urine WBC (Auto) (0-5) /hpf Urine RBC (Auto) (0-4) /hpf U Hyaline Cast (Auto) (0-5) /lpf U Epithel Cells (Auto) (0-5) /lpf Urine Bacteria (Auto) (Negative) Urine Osmolality (500-800) mOsm/kg Ur Random Creatinine mg/dl Nasal Screen MRSA (PCR) (Negative) Ethyl Alcohol mg/dL (0-3) mg/dl 12/12/18 12/12/18 12/12/18 Range/Units 14:37 17:32 17:49 WBC (4.8-10.8) K/uL RBC (4.2-5.4) M/uL Hgb (12.0-16.0) g/dL Hct (37-47) % MCV (80-100) fL MCH (25-34) pg MCHC (32-36) g/dL RDW Std Deviation (36.4-46.3) fL RDW Coeff of Hari (11.5-14.5) % Plt Count (130-400) K/uL MPV (7.4-10.4) fL Immature Gran % (Auto) % Neut % (Auto) % Lymph % (Auto) % Archer % (Auto) % Eos % (Auto) % Baso % (Auto) % Immature Gran # (Auto) (0.00-0.02) K/uL Neut # (Auto) (1.4-6.5) K/uL Lymph # (Auto) (1.2-3.4) K/uL Archer # (Auto) (0.11-0.59) K/uL Eos # (Auto) (0-0.5) K/uL Baso # (Auto) (0-0.2) K/uL Echinocytes PT (9.0-12.0) Seconds INR (0.9-1.1) APTT (21.0-31.0) Seconds PTT Ratio Sodium 130 L (136-145) mmol/L Potassium 4.7 (3.5-5.1) mmol/L Chloride 99 (98-107) mmol/L Carbon Dioxide 18 L (21-32) mmol/L Anion Gap 12.0 H (3-11) BUN 73 H (7-18) mg/dl Creatinine 4.27 H (0.6-1.2) mg/dl Est Cr Clr Drug Dosing Not Reportable Est GFR ( Amer) 11.9 Est GFR (Non-Af Amer) 10.3 BUN/Creatinine Ratio 17.1 (10-20) Glucose 93 (70-99) mg/dl Osmolality (280-300) mOsm/kg Lactate (0.4-2.0) mmol/L Calcium 9.0 (8.5-10.1) mg/dl Magnesium 3.0 H (1.8-2.4) mg/dl Total Bilirubin 0.3 (0.2-1) mg/dl Direct Bilirubin 0.2 (0-0.2) mg/dl AST 50 H (15-37) U/L ALT 55 (12-78) U/L Alkaline Phosphatase 151 H (45-117) U/L Total Creatine Kinase 155 (26-192) U/L Troponin I < 0.015 (0-0.045) ng/ml Total Protein 7.7 (6.4-8.2) gm/dl Albumin 2.4 L (3.4-5.0) gm/dl Lipase 56 L (73-393) U/L Urine Color Urine Appearance (Clear) Urine pH (4.5-7.5) Ur Specific [place] (1.000-1.030) Urine Protein (Negative) Urine Glucose (UA) (Negative) Urine Ketones (Negative) Urine Blood (Negative) Urine Nitrite (Negative) Urine Bilirubin (Negative) Urine Urobilinogen (Negative) Ur Leukocyte Esterase (Negative) Urine WBC (Auto) (0-5) /hpf Urine RBC (Auto) (0-4) /hpf U Hyaline Cast (Auto) (0-5) /lpf U Epithel Cells (Auto) (0-5) /lpf Urine Bacteria (Auto) (Negative) Urine Osmolality (500-800) mOsm/kg Ur Random Creatinine 94.4 mg/dl Nasal Screen MRSA (PCR) Negative (Negative) Ethyl Alcohol mg/dL (0-3) mg/dl 12/12/18 12/12/18 12/12/18 Range/Units 17:49 17:49 22:27 WBC (4.8-10.8) K/uL RBC (4.2-5.4) M/uL Hgb (12.0-16.0) g/dL Hct (37-47) % MCV (80-100) fL MCH (25-34) pg MCHC (32-36) g/dL RDW Std Deviation (36.4-46.3) fL RDW Coeff of Hari (11.5-14.5) % Plt Count (130-400) K/uL MPV (7.4-10.4) fL Immature Gran % (Auto) % Neut % (Auto) % Lymph % (Auto) % Archer % (Auto) % Eos % (Auto) % Baso % (Auto) % Immature Gran # (Auto) (0.00-0.02) K/uL Neut # (Auto) (1.4-6.5) K/uL Lymph # (Auto) (1.2-3.4) K/uL Archer # (Auto) (0.11-0.59) K/uL Eos # (Auto) (0-0.5) K/uL Baso # (Auto) (0-0.2) K/uL Echinocytes PT (9.0-12.0) Seconds INR (0.9-1.1) APTT (21.0-31.0) Seconds PTT Ratio Sodium (136-145) mmol/L Potassium (3.5-5.1) mmol/L Chloride (98-107) mmol/L Carbon Dioxide (21-32) mmol/L Anion Gap (3-11) BUN (7-18) mg/dl Creatinine (0.6-1.2) mg/dl Est Cr Clr Drug Dosing Est GFR ( Amer) Est GFR (Non-Af Amer) BUN/Creatinine Ratio (10-20) Glucose (70-99) mg/dl Osmolality (280-300) mOsm/kg Lactate (0.4-2.0) mmol/L Calcium (8.5-10.1) mg/dl Magnesium (1.8-2.4) mg/dl Total Bilirubin (0.2-1) mg/dl Direct Bilirubin (0-0.2) mg/dl AST (15-37) U/L ALT (12-78) U/L Alkaline Phosphatase (45-117) U/L Total Creatine Kinase (26-192) U/L Troponin I (0-0.045) ng/ml Total Protein (6.4-8.2) gm/dl Albumin (3.4-5.0) gm/dl Lipase (73-393) U/L Urine Color Yellow Urine Appearance Cloudy H (Clear) Urine pH 5.0 (4.5-7.5) Ur Specific [place] 1.015 (1.000-1.030) Urine Protein 2+ H (Negative) Urine Glucose (UA) Negative (Negative) Urine Ketones Negative (Negative) Urine Blood 2+ H (Negative) Urine Nitrite Negative (Negative) Urine Bilirubin Negative (Negative) Urine Urobilinogen Negative (Negative) Ur Leukocyte Esterase 3+ H (Negative) Urine WBC (Auto) >30 H (0-5) /hpf Urine RBC (Auto) 5-10 H (0-4) /hpf U Hyaline Cast (Auto) 1-5 (0-5) /lpf U Epithel Cells (Auto) 20-30 H (0-5) /lpf Urine Bacteria (Auto) 2+ H (Negative) Urine Osmolality 313 L (500-800) mOsm/kg Ur Random Creatinine mg/dl Nasal Screen MRSA (PCR) (Negative) Ethyl Alcohol mg/dL < 3.0 (0-3) mg/dl 12/12/18 Range/Units 22:27 WBC (4.8-10.8) K/uL RBC (4.2-5.4) M/uL Hgb (12.0-16.0) g/dL Hct (37-47) % MCV (80-100) fL MCH (25-34) pg MCHC (32-36) g/dL RDW Std Deviation (36.4-46.3) fL RDW Coeff of Hari (11.5-14.5) % Plt Count (130-400) K/uL MPV (7.4-10.4) fL Immature Gran % (Auto) % Neut % (Auto) % Lymph % (Auto) % Archer % (Auto) % Eos % (Auto) % Baso % (Auto) % Immature Gran # (Auto) (0.00-0.02) K/uL Neut # (Auto) (1.4-6.5) K/uL Lymph # (Auto) (1.2-3.4) K/uL Archer # (Auto) (0.11-0.59) K/uL Eos # (Auto) (0-0.5) K/uL Baso # (Auto) (0-0.2) K/uL Echinocytes PT (9.0-12.0) Seconds INR (0.9-1.1) APTT (21.0-31.0) Seconds PTT Ratio Sodium (136-145) mmol/L Potassium (3.5-5.1) mmol/L Chloride (98-107) mmol/L Carbon Dioxide (21-32) mmol/L Anion Gap (3-11) BUN (7-18) mg/dl Creatinine (0.6-1.2) mg/dl Est Cr Clr Drug Dosing Est GFR ( Amer) Est GFR (Non-Af Amer) BUN/Creatinine Ratio (10-20) Glucose (70-99) mg/dl Osmolality (280-300) mOsm/kg Lactate 0.9 (0.4-2.0) mmol/L Calcium (8.5-10.1) mg/dl Magnesium (1.8-2.4) mg/dl Total Bilirubin (0.2-1) mg/dl Direct Bilirubin (0-0.2) mg/dl AST (15-37) U/L ALT (12-78) U/L Alkaline Phosphatase (45-117) U/L Total Creatine Kinase (26-192) U/L Troponin I (0-0.045) ng/ml Total Protein (6.4-8.2) gm/dl Albumin (3.4-5.0) gm/dl Lipase (73-393) U/L Urine Color Urine Appearance (Clear) Urine pH (4.5-7.5) Ur Specific [place] (1.000-1.030) Urine Protein (Negative) Urine Glucose (UA) (Negative) Urine Ketones (Negative) Urine Blood (Negative) Urine Nitrite (Negative) Urine Bilirubin (Negative) Urine Urobilinogen (Negative) Ur Leukocyte Esterase (Negative) Urine WBC (Auto) (0-5) /hpf Urine RBC (Auto) (0-4) /hpf U Hyaline Cast (Auto) (0-5) /lpf U Epithel Cells (Auto) (0-5) /lpf Urine Bacteria (Auto) (Negative) Urine Osmolality (500-800) mOsm/kg Ur Random Creatinine mg/dl Nasal Screen MRSA (PCR) (Negative) Ethyl Alcohol mg/dL (0-3) mg/dl Imaging Data Attestation: I personally reviewed and interpreted this imaging study as jaspreet carter: Radiologist's Impression: CT SCAN OF THE BRAIN WITHOUT IV CONTRAST CLINICAL HISTORY: Change in mental status. Tremor. COMPARISON STUDY: CT of the brain dated 03/04/2018. TECHNIQUE: Unenhanced axial CT scan of the brain is performed from the vertex to the skull base. A dose lowering technique was utilized adhering to the principles of ALARA. CT DOSE: 537.48 mGy.cm FINDINGS: Brain parenchyma: There are age-related involutional changes noting moderate to advanced subcortical and periventricular microangiopathic change. There is no hemorrhage, mass effect, or evidence of acute territorial ischemia by CT criteria. Molina-white matter differentiation is preserved. No extra-axial fluid collection is seen. Ventricles, sulci, cisterns: Prominent secondary to involutional change. Intracranial vasculature: There is atherosclerotic calcification of the cavernous carotid and vertebral arteries. Calvarium: Unremarkable. Sinuses and mastoids: The visualized paranasal sinuses are clear. The mastoid air cells are well pneumatized. Orbits: The bony orbits are grossly intact. IMPRESSION: Senescent changes as above with no hemorrhage, mass effect, or evidence of acute territorial ischemia by CT criteria. Electronically signed by: Drew Lazo M.D. 12/12/2018 5:04 PM SINGLE VIEW CHEST CLINICAL HISTORY: Change in mental status. FINDINGS: An AP, portable, upright chest radiograph is compared to study dated 03/06/2018 and correlated with chest CT dated 11/10/2017. The examination is degraded by portable technique, apical lordotic positioning, and patient rotation. The heart is enlarged and there is atherosclerotic calcification of the thoracic aorta. There is mild pulmonary vascular congestion. There are low lung volumes with bibasilar atelectasis. No large pleural effusion is identified. No pneumothorax is seen. The skeletal structures are osteopenic. The bony thorax is grossly intact. Postoperative change is noted in the right humerus. IMPRESSION: 1. Cardiomegaly with mild pulmonary vascular congestion. 2. Low lung volumes with bibasilar atelectasis. Electronically signed by: Drew Lazo M.D. 12/12/2018 3:07 PM SINGLE VIEW CHEST CLINICAL HISTORY: Intubation. FINDINGS: An AP, portable, supine chest radiograph is compared to study performed earlier the same day 12/12/2018 and correlated with chest CT dated 11/10/2017. The examination is degraded by portable technique, apical lordotic positioning, and patient rotation. An endotracheal tube has been placed. The tip projects 2 cm above the rowena. The heart is enlarged and there is atheroscl erotic calcification of the thoracic aorta. Mild pulmonary vascular congestion persists. Question developing airspace consolidation at the left lung base. No large pleural effusion is identified. No pneumothorax is seen. The skeletal structures are osteopenic. The bony thorax is grossly intact. Postoperative change is noted in the right humerus. IMPRESSION: 1. An endotracheal tube has been placed as detailed above. 2. Cardiomegaly with mild persistent pulmonary vascular congestion. 3. Question developing airspace consolidation at the left lung base. No large pleural effusion is identified. Electronically signed by: Drew Lazo M.D. 12/12/2018 4:27 PM ECG Data Attestation: I personally reviewed and interpreted this ECG as follows: Indication: altered mental status and weakness Rate (beats per minute): 126 Rhythm: atrial fibrillation (RVR) Findings: + other (QRS 104, QTC 515); no ST depression and no ST elevation Blood Pressure Blood Pressure Findings: Low blood pressure Blood Pressure Disposition: further management by hospitalist MARCIAL Bella The patient was evaluated in room C3, and a complete history and physical examination were performed. On the initial exam the patient was tachycardic with an irregular rate, appeared to be A. fib with RVR. The patient was hypotensive and has a a tremor. IV access was obtained. POC glucose found to be in the 60s. Given the patient's history of alcoholism, as well as that her is in the adjacent room with similar complaints and thought to be intoxicated, it was thought that the patient could be suffering DTs and in A. fib with RVR due to the patient's alcoholism. There is high concern for Warnicke's encephalopathy also. Patient will be given thiamine prior to any glu cose administration. After thiamine the patient will be given a banana bag as well as D5 normal saline. 1 mg Ativan ordered to help with the tremors and see if that helps the heart rate and A. fib. NSS bolus ordered Patient received Ativan and her heart rate improved to 120. Her blood pressure i s 92/50. The niece reports that the patient has not been drinking alcohol, but states that the in the adjacent treatment room has been binge drinking. The niece at bedside states that she thinks that the patient has not been taking any of her home medications. She is not sure the list of her home medications, however she knows that the patient is on carvedilol and states she is confident she has not been taking it. She does not know the dosage of the carvedilol when the last time she took it. Repeat doses of ativan were ordered to try and control the patients tremor and presumed DTs. Patient became more agitated, her respirations are decreasing. We were having a difficult time obtaining a blood pressure on her due to her tremor. She was still in A. fib with RVR. I discussed the patient's case with her niece who brought her into the emergency department and called EMS for the patient be brought into the emergency department. She states that the patient would want everything done if she needs to be placed on a ventilator she would be okay with it. We did not consult the patient's who is in the adjacent room and being evaluated for altered mental status as he was not found to be clinically competent to help make this decision. The patient was moved to room A1 for sedation and emergent intubation giving her decreasing respirations and increasingly agitated. Patient received 20 mg etomidate and 100 mg Succinycholine. Intubation was very difficult. See procedure note. The patients front two teeth that were already loose and appared to be decayed were knocked loose during the difficult intubation. There was no bleeding after the teeth were knocked loose. One tooth was able to be retrieved. The second tooth was found to be in the patient's oral cavity, we attempted to retrieve it with forcps however were unable to as the tooth went further in the patients mouth. There is no concern that it went into the patient's airway as the ETT tube was already in the airway. ICU team Dr. Cha made aware of the difficult intubation and the tooth in the mouth. The sugar on laboratory studies came back WNL. D5 was held. After intubation the patient was started on a propofol drip. She was still very agitated on the propofol drip, She is flailing in the bed and trying to rip out her IVs. She was started on a fentanyl drip and given multiple doses of Ativan however she continued to be agitated. A bolus of vecuronium to paralyze her so she stops fl ailing in the bed and does not rip out her lines or dislodge her ETT which was very difficult to place. Her blood pressure was 75/51 and is still in A-fib RVR in the 150s. Patient was cardioverted using 100 J. Status post cardioversion, patient's EKG showed sinus rhythm with a rate of 95. No ST elevation ST depression. Blood pressure improved to 97/62 status post cardioversion. Patient was taken his stat CT scan of the head and then taken to the ICU. I received a call from the patient's Sister Aby Peters - [employer] Treater Apprentice. She called from number [phone]. She was initially upset that she was not consulted or called about the patient being in the ED. I explained to her that the patient was critically ill and I did not have time to call her as she was being resuscitated acutely. I explained to her that we assumed that the patient would want everything done to save her life including fluid resucitation, intubation, and cardioversion. I also explained to her that the patient's niece was at bedside and stated that the patient was not a DNR and would want all measures taken to stabilize her and optimize her chances of saving her life and her having a full recovery neurologically. She agreed that the patient would want this and then agreed with our decision to intubate her and agressively treat her. She subsequently appologized for getting upset about not being notified that the patient was being resuscitated in the ED. she states she lives in [place] and I advised her to come to the hospital in a safe manner as soon as possible. She states she would do her best to get here as soon as possible. I explained to her that the patient was in the ICU at this time and she stated that she would contact the patient's niece who is at bedside for further details about the patient while she is in the ICU. Impression & Plan Respiratory disorder with ventilator dependence, TERRY (acute kidney injury), Altered mental status, Respiratory failure, Atrial fibrillation Critical Care Time I have personally spent greater than 185 minutes of critical care time in the direct management of this patient. This includes bedside care, interpretation of diagnostic studies, and testing, discussion with consultants, patient, and family members, and other required patient management activities. This 185 minutes is in excess of all separately billable procedures. Critical Care Time: Yes Total Critical Care Time: 185 Discharge Plan Visit Data *Final* Discharge Date/Time: 12/12/18 16:47 Chief Complaint: Dehydration ED Provider: Jeremy Olsen Discharge Problem: Respiratory disorder with ventilator dependence, TERRY (acute kidney injury), Altered mental status, Respiratory failure, Atrial fibrillation Patient Disposition: Admitted As Inpatient Discharge Instructions Interventions: ED Discharge Assessment Last Done: 12/12/18 16:47 Discharge Problem: Altered mental status Qualifiers: Altered mental status type: unspecified Qualified Code(s): R41.82 - Altered mental status, unspecified Respiratory failure Qualifiers: Chronicity: unspecified Respiratory failure complication: hypoxia and hypercapnia Qualified Code(s): J96.91 - Respiratory failure, unspecified with hypoxia Atrial fibrillation Qualifiers: Atrial fibrillation type: unspecified Qualified Code(s): I48.91 - Unspecified atrial fibrillation The scribe's documentation has been prepared under my direction and personally reviewed by me in its entirety. I confirm that the note above accurately reflects all work, treatment, procedures, and medical decision making performed by me.
[2018-12-13 00:42] LABS: Partial Thromboplastin Ratio 3.7
[2018-12-13 04:31] LABS: Eosinophils # (auto) 0.07 K/uL (0-0.5); Eosinophils % (auto) 1.4 %; Hematocrit (blood only) 28.4 % (37-47); Hemoglobin 9.9 g/dL (12.0-16.0); Immature Granulocytes # (auto) 0.02 K/uL (0.00-0.02); Immature Granulocytes % (auto) 0.4 %; Lymphocytes # (auto) 0.69 K/uL (1.2-3.4); Lymphocytes % (auto) 14.2 %; Mean Corpuscular Hgb Conc 34.9 g/dL (32-36); Mean Corpuscular Volume 84.5 fL (80-100); Mean Platelet Volume 9.4 fL (7.4-10.4); Monocytes # (auto) 0.38 K/uL (0.11-0.59); Monocytes % (auto) 7.8 %; Neutrophils # (auto) 3.71 K/uL (1.4-6.5); Neutrophils % (auto) 76.2 %; Platelet Count 327 K/uL (130-400); RDW Coefficient of Variation 15.2 % (11.5-14.5); RDW Standard Deviation 47.3 fL (36.4-46.3); Red Blood Count 3.36 M/uL (4.2-5.4); White Blood Count 4.87 K/uL (4.8-10.8)
[2018-12-13 04:42] LABS: INR 1.1 (0.9-1.1); Prothrombin Time 11.3 Seconds (9.0-12.0)
[2018-12-13 04:51] LABS: Alanine Aminotransferase 38 U/L (12-78); Albumin Level 1.7 gm/dl (3.4-5.0); Aspartate Aminotransferase 34 U/L (15-37); Bilirubin Direct 0.1 mg/dl (0-0.2); Blood Urea Nitrogen 59 mg/dl (7-18); Calcium 7.2 mg/dl (8.5-10.1); Carbon Dioxide 17 mmol/L (21-32); Chloride 108 mmol/L (98-107); Creatinine Clr Calc Pharmacy 23.2 ml/min; Est GFR (African American) 21.1; Est GFR (Non-African American) 18.2; Glucose 104 mg/dl (70-99); Magnesium 2.2 mg/dl (1.8-2.4); Potassium 3.3 mmol/L (3.5-5.1); Sodium 134 mmol/L (136-145)
[2018-12-13 05:05] LABS: Alkaline Phosphatase 146 U/L (45-117); Bilirubin,Total 0.3 mg/dl (0.2-1); Phosphorus 3.4 mg/dl (2.5-4.9); Troponin I < 0.015 ng/ml (0-0.045)
[2018-12-13] MEDS: NORMOSOL-R 1,000 ML IV SCH ×3 (05:51→20:26)
[2018-12-13] MEDS: INSULIN ASPART 100 UNITS/ML 3 ML PEN SC SCH ×3 (05:51→18:33)
[2018-12-13 06:19] LABS: Estimated Average Glucose 134 mg/dl; Hemoglobin A1C 6.3 % (4.5-5.6)
--- NOTE | 2018-12-13 06:51 | Critical Care Progress Note ---
Date of Service December 13, 2018 Assessment & Plan (1) Admitted to intensive care unit: Savanna Mercado is a 62 y/o female with past medical history of alcoholism, chronic atrial fibrillation requiring long-term anticoagulation, agoraphobia, poor compliance, poor social support, HLD, who was brought to the [facility] ED with confusion, afib with RVR, dyspnea, and agitation. Last known well at neuro baseline 2 days [employer], Monday. Her neuro baseline was reported poor from chronic alcohol abuse with what sounds like Wernicke encephalopathy. Her shake backboard notcher is her who also is an alcoholic. reported to have been drinking rubbing alcohol because ran out of EtOH at home. Unknown patient's last drink of EtOH or if drank isopropyl alcohol or other alcohol substitute. Her living conditions at home were found to be poor, reports of animal and human feces on floor. In ED, she required intubation to protect airway. She was in afib w/RVR with rates in the 150s, became hypotensive requiring cardioversion which coverted patient to sinus. Cr was elevated to 4.7; had a metabolic acidosis. CT Head showed NAD, CXR unremarkable. Neuro: - Sedation with propofol 10 mcg/kg/min - Head CT from 12/12 in ED NAD - RASS -2 - Fentanyl citrate drip 20mcg/hr - Alcohol withdrawal assessment score ordered, reportedly sober for past two years, however, alcoholic and was drinking isopropyl alcohol, no osmolar gap yesterday. Cardiac/Vascular: - Prolonged QTC improved from yesterday, 553 today. - Overnight BPs ranging from 80s-110s/40s-50s on Levophed. Pulse mostly in the 70s. - Echocardiogram - LV normal size and wall thickness. LV systolic function is low normal. LV wall motion is normal - EF 50-55% - Normal diastolic function Pulm: - Intubation with mechanical ventilation. - Assist control, RR 22, TV 450 ml/kg, Minute Ventilation 9.9 L/min, PEEP 5cm H2O, FiO2 30, Peak inspriatiory flow 60 L/min - Goal today is extubation if no further issues GI/Nutrition: - Famotidine 20mg IV q12H - Thiamine 100mg IV q 24h; Folic Acid 1mg IV qAM with considerations for poor n utritional status secondary to alcohol abuse. - Discussed probably need for parenteral nutrition, but with goal of extubation today will hold for now. - Hypoalbuminemia at 1.7. Renal/electrolytes: IV fluids - - Parenteral electrolytes with normosol-R @80mls/hr - hypokalemic today at 3.3 and will replete with 60meqs KCl - Adequate urine output showing good perfusion to kidneys. : Miguel cath with good urine return of light yellow colored urine. Endo: No history of diabetes, but will workup for elevated sugars here. A1C = 6.3, showing insulin resistance and since less than 6.5, no diagnosis of diabetes, ICU hyperglycemia protocol normal TSH on labwork Heme: - Iron studies ordered for anemia workup - Hgb 9.9 without signs of acute bleed - Platelets 327 and WNL ID: - Urine culture positive for gram negative bacilli >100,000 CFU. - Antibiotic coverage with Doxycycline 100mg IV BID; Rocephin 2,000 mg IV qday. Will cover urinary tract infection and also provide pulmonary coverage for atypicals/empiric coverage and strep pneumo. - WBC 4.87 WNL - Lactate ordered. Lines: perpheral lines, arterial line intact; will need to place central venous access today for vasoactive medication administration for concerns for sepsis. DVT ppx: SCDs; Heparin 1,100 units/hr Oral/Max surgeon consulted as 3 teeth were damaged during intubation, two were recovered, but one is missing. CXR showed tooth in LUQ below diaphragm suggesting gastric location. Resuscitation status: Full Code. Supervising Physician Co-Signing Physician Notes Dr. Briones was resident physician during care of patient. I separately evaluated patient for montano portions of the history and the exam. I was present during the critical portion of medical decision making, and I discussed the case with the resident. I generally agree with the findings and plan. Patient was discussed in multidisciplinary rounds. Add alcohol withdrawal score to assessment, unclear alcohol consumption history is diagnosed with chronic alcoholism and was drinking isopropyl alcohol. Reportedly the patient has been sober for 2 years. QTC prolonged at 553 improvement from yesterday: Abnormal EKG Paroxysmal A. fib status post cardioversion in the ED continue heparin infusion for thrombotic prophylaxis. Intubation to facilitate workup, I do not believe there is strong suggestion of pneumonia. We will treat with 7 days of Rocephin and doxy for empiric coverage of atypicals and Rocephin will also cover gram-negative urinary tract infection Will hopefully move towards extubation today will hold nutritional support at this time. Significant improvement in renal function, adequate urine output will give 60 M EQ's potassium chloride for hypokalemia in the setting of atrial fibrillation. Continue IV fluids at this time. Normal lactic acid, will check today given vasoactive medication administration. With concern for sepsis will add central line for vasoactive medication administration. Consulted oral maxillofacial surgery, patient does have a tooth that appears to be okay to do in the stomach will follow serial radiograph every 72 hours to ensure passage through GI tract. Patient was discussed in multidisciplinary rounds I have personally spent 50 minutes of critical care time in the direct management of this patient. This is a life/limb threatening event. This includes time spent evaluating patient, direct bedside care, chart review, placing orders, interpretation of diagnostic studies, discussion with consult ants, patient, and/or family members regarding treatment decisions, as well as other required patient management activities. This time is exclusive of all separately billable procedures, and teaching time and separate from and in addition to any other critical care service time. Subjective Caveat: History Limited by - Intubation and sedation. Review of Systems Review of Systems: Unobtainable due to endotracheal tube and Unobtainable due to reduced consciousness Physical Exam ENMT: intubation tube in place Neck: trachea midline Respiratory: Auscultation: no rales and no wheezes intubation with mechanical ventilation Cardiovascular: Rate/Rhythm: regular rate and regular rhythm Extremities: no pedal edema Gastrointestinal (Abdomen): Inspection/Auscultation: normal bowel sounds; abdomen not distended Percussion/Palpation: abdomen soft Musculoskeletal: Head/Neck/Chest: normocephalic Extremities: no cyanosis Skin: no rashes, warm and dry Psychiatric: chemically sedated Genitourinary: miguel cath in place with good return of light yellow urine Results & Data Vital Signs (Past 12 Hours) Vital Signs Temp Pulse Pulse Resp BP BP Pulse Ox 12/13/18 06:30 69 22 99/53 L 106/49 L 100 12/13/18 06:00 79 22 80/47 L 104/47 L 98 12/13/18 05:30 70 22 91/53 L 115/50 L 99 12/13/18 05:17 72 22 100 12/13/18 05:00 75 22 87/57 L 113/51 L 100 12/13/18 04:30 71 22 91/56 L 112/52 L 100 12/13/18 04:00 71 22 85/55 L 113/48 L 100 12/13/18 03:58 62 12/13/18 03:30 36.3 C L 70 22 93/51 L 109/54 L 100 12/13/18 03:00 69 22 96/56 L 108/55 L 100 12/13/18 02:30 69 22 88/49 L 99/50 L 100 12/13/18 02:00 62 65 22 105/61 125/53 L 100 12/13/18 01:30 61 22 99/49 L 105/55 L 100 12/13/18 01:00 60 22 82/48 L 103/56 L 100 12/13/18 00:30 63 22 104/53 L 114/62 100 12/13/18 00:00 36.4 C L 60 22 88/52 L 109/61 100 12/12/18 23:54 64 12/12/18 23:30 65 22 136/61 100 12/12/18 23:17 71 22 110/68 118/61 100 12/12/18 22:45 74 22 120/72 125/60 100 12/12/18 22:30 72 22 120/66 133/65 100 12/12/18 22:15 79 22 114/62 121/56 L 100 12/12/18 22:00 74 22 111/72 100 12/12/18 21:30 76 79 22 124/76 100 12/12/18 21:15 79 22 125/75 100 12/12/18 21:00 79 22 122/70 99 12/12/18 20:45 79 22 115/79 100 12/12/18 20:30 84 22 128/82 100 12/12/18 20:15 82 22 128/83 100 12/12/18 20:00 36.3 C L 82 22 129/82 100 12/12/18 19:55 22 12/12/18 19:45 82 22 127/88 100 12/12/18 19:30 81 22 128/86 100 12/12/18 19:15 79 22 125/68 100 12/12/18 19:00 80 22 122/63 100
[2018-12-13] MEDS ORDERED: FOMEPIZOLE IV SCH (07:00)
[2018-12-13] MEDS ORDERED: DEXTROSE 5% IV SCH (07:00)
[2018-12-13 08:23] LABS: Partial Thromboplastin Ratio 1.8
[2018-12-13 08:32] LABS: Partial Thromboplastin Time 48.7 Seconds (21.0-31.0)
[2018-12-13] MEDS: FOLIC ACID 1 MG in SYRINGE 9.8 ML IV SCH (08:55)
[2018-12-13] MEDS: FAMOTIDINE 20 MG in SYRINGE 3 ML IV SCH ×2 (08:56→20:26)
[2018-12-13] MEDS: ATORVASTATIN 40 MG TAB PO SCH (08:56)
[2018-12-13] MEDS: ASPIRIN 81 MG CHEW PO SCH (08:56)
--- NOTE | 2018-12-13 09:11 | XRay Report ---
XR chest 1V portable HISTORY: Lost tooth COMPARISON: Chest 12/12/2018. FINDINGS: Endotracheal tube terminates 1.2 cm from the rowena. Nasogastric tube terminates in the dis shelia stomach. There is a 1.1 cm oval-shaped calcific density within the left upper quadrant likely wit hin the stomach. This may correspond to the patient's history of a lost tooth. No pneumothorax. Small left pleural effusion and left basilar densities are noted. There is mild pulmonary vascular congest ion. The heart remains mildly enlarged. IMPRESSION: 1. The endotracheal tube terminates 1.2 m from the rowena. This should be pulled back by approximate 1 cm. 2. There is a 1.1 cm oval-shaped calcific density within the left upper quadrant likely within the st omach. This may correspond to the patient's history of a lost tooth. 3. Mild congestive change, small left pleural effusion, and left basilar densities. Electronically signed by: Obi Parada M.D. 12/13/2018 9:10 AM
[2018-12-13 09:18] LABS: iSTAT Arterial Blood Gas HCO3 13 meg/L (19-24); iSTAT Arterial Blood Gas pCO2 23 mmHg (35-46); iSTAT Arterial Blood Gas pH 7.36 (7.35-7.45); iSTAT Carbon Dioxide 13 mEq/l (24-31); iSTAT FiO2 40 %; iSTAT Site R Brachial
[2018-12-13 09:18] LABS: iSTAT Creatinine 4.3 mg/dl (0.6-1.3); iSTAT Hemoglobin 11.9 g/dl (12.0-16.0); iSTAT Ionized Calcium 1.09 mmol/l (1.12-1.32); iSTAT Potassium 4.8 mEq/L (3.3-5.0)
[2018-12-13 09:18] LABS: iSTAT Allen Test Pass; iSTAT Arterial Blood Gas HCO3 13 meg/L (19-24); iSTAT Arterial Blood Gas pCO2 36 mmHg (35-46); iSTAT Arterial Blood Gas pH 7.17 (7.35-7.45); iSTAT Carbon Dioxide 14 mEq/l (24-31); iSTAT FiO2 50 %; iSTAT Site L Radial
--- NOTE | 2018-12-13 09:45 | Nephrology Consultation ---
Date of Consultation December 13, 2018 Assessment & Plan (1) TERRY (acute kidney injury): -- TERRY consistent with prerenal azotemia and possible ATN -- Creatinine improving with improved BP and control of atrial arrythmia -- UOP appropriate -- Medications are appropriate for kidney function -- UA without ketones, microscopy +WBCS, +RBCS, culture + G - rods -- Renal US: WNL -- Negative for salicylates -- Hold Aldactone -- Continue IV normosol @ 80 ml/hr to encourage a positive fluid balance (2) Admitted to intensive care unit: -- 30 minutes of critical care time spent today -- Plan of care discussed with Dr. Cha and Dr. 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 Savanna Mercado is a 62-year-old female who was admitted to the ICU overnight for mechanical ventilatory support. The patient was brought to the ED yesterday by family with confusion and agitation. Medical history is notable for alcoholism, chronic atrial fibrillation, agoraphobia, poor compliance, poor social support. The patient's was also admitted to [facility] yesterday with isopropyl alcohol ingestion. He reported that they were drinking rubbing alcohol. The extact time of the patient's last drink is unclear. In the ED, she required intubation to protect airway. She was in afib w/RVR with rates in the 150s, became hypotensive requiring cardioversion which and has converted to sinus rhythm. This morning the patient remains intubated on 30% FIO2. She continues to require sedation due to agitation. She is ventilating well. She is non-oliguric. Creatinine is improving. Allergies Allergy/AdvReac Type Severity Reaction Status Date / Time No Known Allergies Allergy Verified 12/12/18 17:42 Home Medications Home Medications Medication Instructions Recorded Confirmed Type aspirin 81 mg PO DAILY 12/12/18 12/12/18 History atorvastatin 40 mg PO DAILY 12/12/18 12/12/18 History calcium carbonate [Tums] 200 mg PO DIRECTED PRN 12/12/18 12/12/18 History carvedilol 3.125 mg PO QAM 12/12/18 12/12/18 History carvedilol 12.5 mg PO BIDM 12/12/18 12/12/18 History escitalopram oxalate 10 mg PO DAILY 12/12/18 12/12/18 History ferrous sulfate 325 mg PO BID 12/12/18 12/12/18 History fluticasone propionate 2 spray INTRANASAL DAILY 12/12/18 12/12/18 History folic acid 1 mg PO DAILY 12/12/18 12/12/18 History magnesium oxide 400 mg PO BID 12/12/18 12/12/18 History multivitamin,wz-hygz-efpesipb 1 tab PO DAILY 12/12/18 12/12/18 History [Therems-M] omeprazole 20 mg PO DAILY 12/12/18 12/12/18 History rivaroxaban [Xarelto] 15 mg PO PM 12/12/18 12/12/18 History spironolactone 25 mg PO DAILY 12/12/18 12/12/18 History thiamine HCl (vitamin B1) [Vitamin 50 mg PO BID 12/12/18 12/12/18 History B-1] Patient History Medical History Trimalleolar fracture of left ankle (Resolved) Dislocation of ankle joint (Resolved) Trimalleolar fracture of right ankle (Resolved) GERD (gastroesophageal reflux disease) (Chronic) Hyperlipidemia (Chronic) 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 (Chronic) Alcohol dependence (Chronic) Acute liver disease (Chronic) Hypotension (Resolved) Rapid atrial fibrillation (Chronic) High anion gap metabolic acidosis Family History Other Diabetes Hypertension Social History 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 Beliefs That Will Affect Care: None marital status: Current Living Situation: Spouse Other Information That Helps Us Care for You: No Feels Safe at Home: Declines to Answer Smoking Status: Current every day smoker Hx Alcohol Use: Yes (Per Report, patient unable to answer) Hx Substance Use: No Physical Exam Physical Exam: unable to obtain due to mental status and VDRF Constitutional: + acute distress and + ill appearing Eyes: no scleral abnormality and no corneal abnormality ENMT: ETT Neck: normal visual inspection and trachea midline Respiratory: no respiratory distress Auscultation: lungs clear to auscultation bilaterally Cardiovascular: Rate/Rhythm: regular rate Heart Sounds: normal S1 and normal S2; no murmur Gastrointestinal (Abdomen): Percussion/Palpation: abdomen soft; abdomen nontender Musculoskeletal: Extremities: no cyanosis and no clubbing Skin: no rashes Neurologic: Motor/Sensory: no tremor and no asterixis Results & Data Vital Signs (Past 12 Hours) Vital Signs Temp Pulse Pulse Resp BP BP Pulse Ox 12/13/18 07:29 77 22 99 12/13/18 06:30 69 22 99/53 L 106/49 L 100 12/13/18 06:00 79 22 80/47 L 104/47 L 98 12/13/18 05:30 70 22 91/53 L 115/50 L 99 12/13/18 05:17 72 22 100 12/13/18 05:00 75 22 87/57 L 113/51 L 100 12/13/18 04:30 71 22 91/56 L 112/52 L 100 12/13/18 04:00 71 22 85/55 L 113/48 L 100 12/13/18 03:58 62 12/13/18 03:30 36.3 C L 70 22 93/51 L 109/54 L 100 12/13/18 03:00 69 22 96/56 L 108/55 L 100 12/13/18 02:30 69 22 88/49 L 99/50 L 100 12/13/18 02:00 62 65 22 105/61 125/53 L 100 12/13/18 01:30 61 22 99/49 L 105/55 L 100 12/13/18 01:00 60 22 82/48 L 103/56 L 100 12/13/18 00:30 63 22 104/53 L 114/62 100 12/13/18 00:00 36.4 C L 60 22 88/52 L 109/61 100 12/12/18 23:54 64 12/12/18 23:30 65 22 136/61 100 12/12/18 23:17 71 22 110/68 118/61 100 12/12/18 22:45 74 22 120/72 125/60 100 12/12/18 22:30 72 22 120/66 133/65 100 12/12/18 22:15 79 22 114/62 121/56 L 100 12/12/18 22:00 74 22 111/72 100 Laboratory Results Laboratory Results - last 24 hr 12/12/18 12/12/18 12/12/18 14:37 14:37 14:37 WBC 8.92 RBC 3.78 L Hgb 11.5 L POC Hgb Hct 32.9 L POC Hct MCV 87.0 MCH 30.4 MCHC 35.0 RDW Std Deviation 48.9 H RDW Coeff of Hari 15.2 H Plt Count 368 MPV 9.5 Immature Gran % (Auto) 0.6 Neut % (Auto) 87.2 Lymph % (Auto) 5.7 [place] % (Auto) 6.1 Eos % (Auto) 0.3 Baso % (Auto) 0.1 Immature Gran # (Auto) 0.05 H Neut # (Auto) 7.78 H Lymph # (Auto) 0.51 L [place] # (Auto) 0.54 Eos # (Auto) 0.03 Baso # (Auto) 0.01 Echinocytes 2+ PT 11.2 INR 1.1 APTT 32.9 H PTT Ratio 1.2 Sample Site POC pH POC pCO2 POC pO2 POC HCO3 POC Base Excess POC ABG O2 Sat Josr Test O2 Delivery Device POC O2 Rate Minute Ventilation POC FiO2 Tidal Volume PEEP POC Sodium Sodium POC Potassium Potassium POC Chloride Chloride Carbon Dioxide POC Total CO2 Anion Gap POC Anion Gap POC BUN BUN Creatinine POC Creatinine Est Cr Clr Drug Dosing Est GFR ( Amer) Est GFR (Non-Af Amer) BUN/Creatinine Ratio Glucose POC Glucose POC Glucose (other) Estimat Average Glucose Hemoglobin A1c Osmolality 291 Lactate Calcium POC Ioniz Calcium Jenny Phosphorus Magnesium Total Bilirubin Direct Bilirubin AST ALT Alkaline Phosphatase Ammonia Total Creatine Kinase Troponin I Total Protein Albumin Lipase Folate Urine Color Urine Appearance Urine pH Ur Specific [place] Urine Protein Urine Glucose (UA) Urine Ketones Urine Blood Urine Nitrite Urine Bilirubin Urine Urobilinogen Ur Leukocyte Esterase Urine WBC (Auto) Urine RBC (Auto) U Hyaline Cast (Auto) U Epithel Cells (Auto) Urine Bacteria (Auto) Urine Osmolality Ur Random Creatinine Nasal Screen MRSA (PCR) Ethyl Alcohol mg/dL Hepatitis C Ab Screen Blood Type Antibody Screen 12/12/18 12/12/18 12/12/18 14:37 14:43 14:52 WBC RBC Hgb POC Hgb 11.9 L Hct POC Hct 35 L MCV MCH MCHC RDW Std Deviation RDW Coeff of Hari Plt Count MPV Immature Gran % (Auto) Neut % (Auto) Lymph % (Auto) [place] % (Auto) Eos % (Auto) Baso % (Auto) Immature Gran # (Auto) Neut # (Auto) Lymph # (Auto) [place] # (Auto) Eos # (Auto) Baso # (Auto) Echinocytes PT INR APTT PTT Ratio Sample Site POC pH POC pCO2 POC pO2 POC HCO3 POC Base Excess POC ABG O2 Sat Josr Test O2 Delivery Device POC O2 Rate Minute Ventilation POC FiO2 Tidal Volume PEEP POC Sodium 131 L Sodium 130 L POC Potassium 4.8 Potassium 4.7 POC Chloride 100 L Chloride 99 Carbon Dioxide 18 L POC Total CO2 18 L Anion Gap 12.0 H POC Anion Gap 18.0 POC BUN 63 H BUN 73 H Creatinine 4.27 H POC Creatinine 4.3 H Est Cr Clr Drug Dosing Not Reportable Est GFR ( Amer) 11.9 Est GFR (Non-Af Amer) 10.3 BUN/Creatinine Ratio 17.1 Glucose 93 POC Glucose 66 L* POC Glucose (other) 100 H Estimat Average Glucose Hemoglobin A1c Osmolality Lactate Calcium 9.0 POC Ioniz Calcium Jenny 1.09 L Phosphorus Magnesium 3.0 H Total Bilirubin 0.3 Direct Bilirubin 0.2 AST 50 H ALT 55 Alkaline Phosphatase 151 H Ammonia Total Creatine Kinase 155 Troponin I < 0.015 Total Protein 7.7 Albumin 2.4 L Lipase 56 L Folate Urine Color Urine Appearance Urine pH Ur Specific [place] Urine Protein Urine Glucose (UA) Urine Ketones Urine Blood Urine Nitrite Urine Bilirubin Urine Urobilinogen Ur Leukocyte Esterase Urine WBC (Auto) Urine RBC (Auto) U Hyaline Cast (Auto) U Epithel Cells (Auto) Urine Bacteria (Auto) Urine Osmolality Ur Random Creatinine Nasal Screen MRSA (PCR) Ethyl Alcohol mg/dL Hepatitis C Ab Screen Blood Type Antibody Screen 12/12/18 12/12/18 12/12/18 17:32 17:49 17:49 WBC RBC Hgb POC Hgb Hct POC Hct MCV MCH MCHC RDW Std Deviation RDW Coeff of Hari Plt Count MPV Immature Gran % (Auto) Neut % (Auto) Lymph % (Auto) [place] % (Auto) Eos % (Auto) Baso % (Auto) Immature Gran # (Auto) Neut # (Auto) Lymph # (Auto) [place] # (Auto) Eos # (Auto) Baso # (Auto) Echinocytes PT INR APTT PTT Ratio Sample Site POC pH POC pCO2 POC pO2 POC HCO3 POC Base Excess POC ABG O2 Sat Josr Test O2 Delivery Device POC O2 Rate Minute Ventilation POC FiO2 Tidal Volume PEEP POC Sodium Sodium POC Potassium Potassium POC Chloride Chloride Carbon Dioxide POC Total CO2 Anion Gap POC Anion Gap POC BUN BUN Creatinine POC Creatinine Est Cr Clr Drug Dosing Est GFR ( Amer) Est GFR (Non-Af Amer) BUN/Creatinine Ratio Glucose POC Glucose POC Glucose (other) Estimat Average Glucose Hemoglobin A1c Osmolality Lactate Calcium POC Ioniz Calcium Jenny Phosphorus Magnesium Total Bilirubin Direct Bilirubin AST ALT Alkaline Phosphatase Ammonia Total Creatine Kinase Troponin I Total Protein Albumin Lipase Folate Urine Color Urine Appearance Urine pH Ur Specific [place] Urine Protein Urine Glucose (UA) Urine Ketones Urine Blood Urine Nitrite Urine Bilirubin Urine Urobilinogen Ur Leukocyte Esterase Urine WBC (Auto) Urine RBC (Auto) U Hyaline Cast (Auto) U Epithel Cells (Auto) Urine Bacteria (Auto) Urine Osmolality 313 L Ur Random Creatinine 94.4 Nasal Screen MRSA (PCR) Negative Ethyl Alcohol mg/dL Hepatitis C Ab Screen Blood Type Antibody Screen 12/12/18 12/12/18 12/12/18 17:49 17:59 18:02 WBC RBC Hgb POC Hgb Hct POC Hct MCV MCH MCHC RDW Std Deviation RDW Coeff of Hari Plt Count MPV Immature Gran % (Auto) Neut % (Auto) Lymph % (Auto) [place] % (Auto) Eos % (Auto) Baso % (Auto) Immature Gran # (Auto) Neut # (Auto) Lymph # (Auto) [place] # (Auto) Eos # (Auto) Baso # (Auto) Echinocytes PT INR APTT PTT Ratio Sample Site L Radial POC pH 7.17 L* POC pCO2 36 POC pO2 171 H POC HCO3 13 L POC Base Excess -15.0 L POC ABG O2 Sat 99.0 H Josr Test Pass O2 Delivery Device Ventilator POC O2 Rate 18 Minute Ventilation 8.9 POC FiO2 50 Tidal Volume 450 PEEP 5 POC Sodium Sodium POC Potassium Potassium POC Chloride Chloride Carbon Dioxide POC Total CO2 14 L Anion Gap POC Anion Gap POC BUN BUN Creatinine POC Creatinine Est Cr Clr Drug Dosing Est GFR ( Amer) Est GFR (Non-Af Amer) BUN/Creatinine Ratio Glucose POC Glucose 120 H POC Glucose (other) Estimat Average Glucose Hemoglobin A1c Osmolality Lactate Calcium POC Ioniz Calcium Jenny Phosphorus Magnesium Total Bilirubin Direct Bilirubin AST ALT Alkaline Phosphatase Ammonia Total Creatine Kinase Troponin I Total Protein Albumin Lipase Folate Urine Color Yellow Urine Appearance Cloudy H Urine pH 5.0 Ur Specific [place] 1.015 Urine Protein 2+ H Urine Glucose (UA) Negative Urine Ketones Negative Urine Blood 2+ H Urine Nitrite Negative Urine Bilirubin Negative Urine Urobilinogen Negative Ur Leukocyte Esterase 3+ H Urine WBC (Auto) >30 H Urine RBC (Auto) 5-10 H U Hyaline Cast (Auto) 1-5 U Epithel Cells (Auto) 20-30 H Urine Bacteria (Auto) 2+ H Urine Osmolality Ur Random Creatinine Nasal Screen MRSA (PCR) Ethyl Alcohol mg/dL Hepatitis C Ab Screen Blood Type Antibody Screen 12/12/18 12/12/18 12/12/18 21:22 22:27 22:27 WBC RBC Hgb POC Hgb Hct POC Hct MCV MCH MCHC RDW Std Deviation RDW Coeff of Hari Plt Count MPV Immature Gran % (Auto) Neut % (Auto) Lymph % (Auto) [place] % (Auto) Eos % (Auto) Baso % (Auto) Immature Gran # (Auto) Neut # (Auto) Lymph # (Auto) [place] # (Auto) Eos # (Auto) Baso # (Auto) Echinocytes PT INR APTT PTT Ratio Sample Site R Brachial POC pH 7.36 POC pCO2 23 L POC pO2 149 H POC HCO3 13 L POC Base Excess -13.0 L POC ABG O2 Sat 99.0 H Josr Test NA O2 Delivery Device Ventilator POC O2 Rate 22 Minute Ventilation 11.3 POC FiO2 40 Tidal Volume 450 PEEP 5 POC Sodium Sodium POC Potassium Potassium POC Chloride Chloride Carbon Dioxide POC Total CO2 13 L Anion Gap POC Anion Gap POC BUN BUN Creatinine POC Creatinine Est Cr Clr Drug Dosing Est GFR ( Amer) Est GFR (Non-Af Amer) BUN/Creatinine Ratio Glucose POC Glucose POC Glucose (other) Estimat Average Glucose Hemoglobin A1c Osmolality Lactate Calcium POC Ioniz Calcium Jenny Phosphorus Magnesium Total Bilirubin Direct Bilirubin AST ALT Alkaline Phosphatase Ammonia Cancelled Total Creatine Kinase Troponin I Total Protein Albumin Lipase Folate Urine Color Urine Appearance Urine pH Ur Specific [place] Urine Protein Urine Glucose (UA) Urine Ketones Urine Blood Urine Nitrite Urine Bilirubin Urine Urobilinogen Ur Leukocyte Esterase Urine WBC (Auto) Urine RBC (Auto) U Hyaline Cast (Auto) U Epithel Cells (Auto) Urine Bacteria (Auto) Urine Osmolality Ur Random Creatinine Nasal Screen MRSA (PCR) Ethyl Alcohol mg/dL < 3.0 Hepatitis C Ab Screen Blood Type Antibody Screen 12/12/18 12/12/18 12/12/18 22:27 22:27 22:27 WBC RBC Hgb POC Hgb Hct POC Hct MCV MCH MCHC RDW Std Deviation RDW Coeff of Hari Plt Count MPV Immature Gran % (Auto) Neut % (Auto) Lymph % (Auto) [place] % (Auto) Eos % (Auto) Baso % (Auto) Immature Gran # (Auto) Neut # (Auto) Lymph # (Auto) [place] # (Auto) Eos # (Auto) Baso # (Auto) Echinocytes PT INR APTT PTT Ratio Sample Site POC pH POC pCO2 POC pO2 POC HCO3 POC Base Excess POC ABG O2 Sat Josr Test O2 Delivery Device POC O2 Rate Minute Ventilation POC FiO2 Tidal Volume PEEP POC Sodium Sodium POC Potassium Potassium POC Chloride Chloride Carbon Dioxide POC Total CO2 Anion Gap POC Anion Gap POC BUN BUN Creatinine POC Creatinine Est Cr Clr Drug Dosing Est GFR ( Amer) Est GFR (Non-Af Amer) BUN/Creatinine Ratio Glucose POC Glucose POC Glucose (other) Estimat Average Glucose Hemoglobin A1c Osmolality 301 H Lactate Calcium POC Ioniz Calcium Jenny Phosphorus Magnesium Total Bilirubin Direct Bilirubin AST ALT Alkaline Phosphatase Ammonia Total Creatine Kinase Troponin I Total Protein Albumin Lipase Folate > 24.00 Urine Color Urine Appearance Urine pH Ur Specific [place] Urine Protein Urine Glucose (UA) Urine Ketones Urine Blood Urine Nitrite Urine Bilirubin Urine Urobilinogen Ur Leukocyte Esterase Urine WBC (Auto) Urine RBC (Auto) U Hyaline Cast (Auto) U Epithel Cells (Auto) Urine Bacteria (Auto) Urine Osmolality Ur Random Creatinine Nasal Screen MRSA (PCR) Ethyl Alcohol mg/dL Hepatitis C Ab Screen Blood Type A Negative Antibody Screen NEGATIVE 12/12/18 12/12/18 12/12/18 22:27 22:27 22:27 WBC RBC Hgb POC Hgb Hct POC Hct MCV MCH MCHC RDW Std Deviation RDW Coeff of Hari Plt Count MPV Immature Gran % (Auto) Neut % (Auto) Lymph % (Auto) [place] % (Auto) Eos % (Auto) Baso % (Auto) Immature Gran # (Auto) Neut # (Auto) Lymph # (Auto) [place] # (Auto) Eos # (Auto) Baso # (Auto) Echinocytes PT INR APTT PTT Ratio Sample Site POC pH POC pCO2 POC pO2 POC HCO3 POC Base Excess POC ABG O2 Sat Josr Test O2 Delivery Device POC O2 Rate Minute Ventilation POC FiO2 Tidal Volume PEEP POC Sodium Sodium POC Potassium Potassium POC Chloride Chloride Carbon Dioxide POC Total CO2 Anion Gap POC Anion Gap POC BUN BUN Creatinine POC Creatinine Est Cr Clr Drug Dosing Est GFR ( Amer) Est GFR (Non-Af Amer) BUN/Creatinine Ratio Glucose POC Glucose POC Glucose (other) Estimat Average Glucose Hemoglobin A1c Osmolality Lactate 0.9 Calcium POC Ioniz Calcium Jenny Phosphorus Magnesium Total Bilirubin Direct Bilirubin AST ALT Alkaline Phosphatase Ammonia Total Creatine Kinase Troponin I < 0.015 Total Protein Albumin Lipase Folate Urine Color Urine Appearance Urine pH Ur Specific [place] Urine Protein Urine Glucose (UA) Urine Ketones Urine Blood Urine Nitrite Urine Bilirubin Urine Urobilinogen Ur Leukocyte Esterase Urine WBC (Auto) Urine RBC (Auto) U Hyaline Cast (Auto) U Epithel Cells (Auto) Urine Bacteria (Auto) Urine Osmolality Ur Random Creatinine Nasal Screen MRSA (PCR) Ethyl Alcohol mg/dL Hepatitis C Ab Screen Neg Blood Type Antibody Screen 12/12/18 12/13/18 12/13/18 23:44 00:16 00:16 WBC RBC Hgb POC Hgb Hct POC Hct MCV MCH MCHC RDW Std Deviation RDW Coeff of Hari Plt Count MPV Immature Gran % (Auto) Neut % (Auto) Lymph % (Auto) [place] % (Auto) Eos % (Auto) Baso % (Auto) Immature Gran # (Auto) Neut # (Auto) Lymph # (Auto) [place] # (Auto) Eos # (Auto) Baso # (Auto) Echinocytes PT INR APTT 99.0 H* PTT Ratio 3.7 Sample Site POC pH POC pCO2 POC pO2 POC HCO3 POC Base Excess POC ABG O2 Sat Josr Test O2 Delivery Device POC O2 Rate Minute Ventilation POC FiO2 Tidal Volume PEEP POC Sodium Sodium POC Potassium Potassium POC Chloride Chloride Carbon Dioxide POC Total CO2 Anion Gap POC Anion Gap POC BUN BUN Creatinine POC Creatinine Est Cr Clr Drug Dosing Est GFR ( Amer) Est GFR (Non-Af Amer) BUN/Creatinine Ratio Glucose POC Glucose POC Glucose (other) 154 H Estimat Average Glucose Hemoglobin A1c Osmolality Lactate Calcium POC Ioniz Calcium Jenny Phosphorus Magnesium Total Bilirubin Direct Bilirubin AST ALT Alkaline Phosphatase Ammonia 15.7 Total Creatine Kinase Troponin I Total Protein Albumin Lipase Folate Urine Color Urine Appearance Urine pH Ur Specific [place] Urine Protein Urine Glucose (UA) Urine Ketones Urine Blood Urine Nitrite Urine Bilirubin Urine Urobilinogen Ur Leukocyte Esterase Urine WBC (Auto) Urine RBC (Auto) U Hyaline Cast (Auto) U Epithel Cells (Auto) Urine Bacteria (Auto) Urine Osmolality Ur Random Creatinine Nasal Screen MRSA (PCR) Ethyl Alcohol mg/dL Hepatitis C Ab Screen Blood Type Antibody Screen 12/13/18 12/13/18 12/13/18 04:18 04:18 04:18 WBC 4.87 RBC 3.36 L Hgb 9.9 L POC Hgb Hct 28.4 L POC Hct MCV 84.5 MCH 29.5 MCHC 34.9 RDW Std Deviation 47.3 H RDW Coeff of Hari 15.2 H Plt Count 327 MPV 9.4 Immature Gran % (Auto) 0.4 Neut % (Auto) 76.2 Lymph % (Auto) 14.2 [place] % (Auto) 7.8 Eos % (Auto) 1.4 Baso % (Auto) 0.0 Immature Gran # (Auto) 0.02 Neut # (Auto) 3.71 Lymph # (Auto) 0.69 L [place] # (Auto) 0.38 Eos # (Auto) 0.07 Baso # (Auto) 0.00 Echinocytes PT 11.3 INR 1.1 APTT Cancelled PTT Ratio Cancelled Sample Site POC pH POC pCO2 POC pO2 POC HCO3 POC Base Excess POC ABG O2 Sat Josr Test O2 Delivery Device POC O2 Rate Minute Ventilation POC FiO2 Tidal Volume PEEP POC Sodium Sodium 134 L POC Potassium Potassium 3.3 L D POC Chloride Chloride 108 H Carbon Dioxide 17 L POC Total CO2 Anion Gap 9.0 POC Anion Gap POC BUN BUN 59 H Creatinine 2.66 H D POC Creatinine Est Cr Clr Drug Dosing 23.2 Est GFR ( Amer) 21.1 Est GFR (Non-Af Amer) 18.2 BUN/Creatinine Ratio 22.0 H Glucose 104 H POC Glucose POC Glucose (other) Estimat Average Glucose Hemoglobin A1c Osmolality Lactate Calcium 7.2 L D POC Ioniz Calcium Jenny Phosphorus 3.4 Magnesium 2.2 Total Bilirubin 0.3 Direct Bilirubin 0.1 AST 34 ALT 38 Alkaline Phosphatase 146 H Ammonia Total Creatine Kinase Troponin I < 0.015 Total Protein 6.0 L D Albumin 1.7 L Lipase Folate Urine Color Urine Appearance Urine pH Ur Specific [place] Urine Protein Urine Glucose (UA) Urine Ketones Urine Blood Urine Nitrite Urine Bilirubin Urine Urobilinogen Ur Leukocyte Esterase Urine WBC (Auto) Urine RBC (Auto) U Hyaline Cast (Auto) U Epithel Cells (Auto) Urine Bacteria (Auto) Urine Osmolality Ur Random Creatinine Nasal Screen MRSA (PCR) Ethyl Alcohol mg/dL Hepatitis C Ab Screen Blood Type Antibody Screen 12/13/18 12/13/18 12/13/18 04:18 04:18 05:43 WBC RBC Hgb POC Hgb Hct POC Hct MCV MCH MCHC RDW Std Deviation RDW Coeff of Hari Plt Count MPV Immature Gran % (Auto) Neut % (Auto) Lymph % (Auto) [place] % (Auto) Eos % (Auto) Baso % (Auto) Immature Gran # (Auto) Neut # (Auto) Lymph # (Auto) [place] # (Auto) Eos # (Auto) Baso # (Auto) Echinocytes PT INR APTT PTT Ratio Sample Site POC pH POC pCO2 POC pO2 POC HCO3 POC Base Excess POC ABG O2 Sat Josr Test O2 Delivery Device POC O2 Rate Minute Ventilation POC FiO2 Tidal Volume PEEP POC Sodium Sodium POC Potassium Potassium POC Chloride Chloride Carbon Dioxide POC Total CO2 Anion Gap POC Anion Gap POC BUN BUN Creatinine POC Creatinine Est Cr Clr Drug Dosing Est GFR ( Amer) Est GFR (Non-Af Amer) BUN/Creatinine Ratio Glucose POC Glucose POC Glucose (other) 106 H Estimat Average Glucose 134 Hemoglobin A1c 6.3 H Osmolality Lactate Calcium POC Ioniz Calcium Jenny Phosphorus Magnesium Total Bilirubin Direct Bilirubin AST ALT Alkaline Phosphatase Ammonia 16.0 Total Creatine Kinase Troponin I Total Protein Albumin Lipase Folate Urine Color Urine Appearance Urine pH Ur Specific [place] Urine Protein Urine Glucose (UA) Urine Ketones Urine Blood Urine Nitrite Urine Bilirubin Urine Urobilinogen Ur Leukocyte Esterase Urine WBC (Auto) Urine RBC (Auto) U Hyaline Cast (Auto) U Epithel Cells (Auto) Urine Bacteria (Auto) Urine Osmolality Ur Random Creatinine Nasal Screen MRSA (PCR) Ethyl Alcohol mg/dL Hepatitis C Ab Screen Blood Type Antibody Screen 12/13/18 07:55 WBC RBC Hgb POC Hgb Hct POC Hct MCV MCH MCHC RDW Std Deviation RDW Coeff of Hari Plt Count MPV Immature Gran % (Auto) Neut % (Auto) Lymph % (Auto) [place] % (Auto) Eos % (Auto) Baso % (Auto) Immature Gran # (Auto) Neut # (Auto) Lymph # (Auto) [place] # (Auto) Eos # (Auto) Baso # (Auto) Echinocytes PT INR APTT 48.7 H* PTT Ratio 1.8 Sample Site POC pH POC pCO2 POC pO2 POC HCO3 POC Base Excess POC ABG O2 Sat Josr Test O2 Delivery Device POC O2 Rate Minute Ventilation POC FiO2 Tidal Volume PEEP POC Sodium Sodium POC Potassium Potassium POC Chloride Chloride Carbon Dioxide POC Total CO2 Anion Gap POC Anion Gap POC BUN BUN Creatinine POC Creatinine Est Cr Clr Drug Dosing Est GFR ( Amer) Est GFR (Non-Af Amer) BUN/Creatinine Ratio Glucose POC Glucose POC Glucose (other) Estimat Average Glucose Hemoglobin A1c Osmolality Lactate Calcium POC Ioniz Calcium Jenny Phosphorus Magnesium Total Bilirubin Direct Bilirubin AST ALT Alkaline Phosphatase Ammonia Total Creatine Kinase Troponin I Total Protein Albumin Lipase Folate Urine Color Urine Appearance Urine pH Ur Specific [place] Urine Protein Urine Glucose (UA) Urine Ketones Urine Blood Urine Nitrite Urine Bilirubin Urine Urobilinogen Ur Leukocyte Esterase Urine WBC (Auto) Urine RBC (Auto) U Hyaline Cast (Auto) U Epithel Cells (Auto) Urine Bacteria (Auto) Urine Osmolality Ur Random Creatinine Nasal Screen MRSA (PCR) Ethyl Alcohol mg/dL Hepatitis C Ab Screen Blood Type Antibody Screen (1) Altered mental status Altered mental status type: unspecified Qualified Code(s): R41.82 - Altered mental status, unspecified (2) Atrial fibrillation Atrial fibrillation type: unspecified Qualified Code(s): I48.91 - Unspecified atrial fibrillation
--- NOTE | 2018-12-13 10:40 | Hospitalist Progress Note ---
Date of Service December 13, 2018 Assessment & Plan (1) Hypovolemic shock: likely due to dehydration, metabolic acidosis no signs of infection, WBC normal, no fever no signs of bleeding, Hb is 11.5 no hypoxic respiratory failure so doubt obstructive shock treat with aggressive IV hydration and the Levophed will likely need central line and arterial line, defer to correctional therapy director (2) Metabolic acidosis: elevated anion gap, could be due to TERRY, possible ingestion of rubbing alcohol, unclear history pH was 7.1 on ABG will increase ventilatory rate to 22 and provide 2 amps sodium bicarb now patient is hypotensive repeat ABG in one hour nephrology consult placed due to TERRY as well (3) TERRY (acute kidney injury): likely due to dehydration and hypotension no signs of septic shock could also be due to ingestion of unknown substance ( admitted to drinking rubbing alcohol) aggressive hydration at first due to hypotension two 1000cc boluses given and then run Normosol at 80cc/hr miguel placed for accurate UO nephrology consulted for recommendations check urine studies for casts, proteins etc (4) Acute respiratory failure: agitated and not protecting airway in the ED intubated to protect airway ABG shows that this is not hypoxic failure has a history of heavy smoking so may have a component of COPD (5) Atrial fibrillation with RVR: required cardioversion in the ED due to hemodynamic instability now in sinus rhythm typically on Coreg and Xarelto, unsure if she was actually taking at home check echo stat (6) Alcohol dependence: h/o such, per family has not been drinking alcohol for two years ETOH negative on admission (7) Neurocognitive disorder: per family, has alcohol induced dementia needs cared for by started drinking again and was neglecting care of the Review of Systems Constitutional: no fever, no chills, no fatigue, no malaise, no weakness, no weight loss and no weight gain Eyes: no eye pain, no photophobia and no worsening vision Ear, Nose, Mouth, Throat: no ear pain, no hearing loss, no dizziness, no mouth lesions, no sore throat, no hoarseness, no dysphagia and no pain with swallowing Respiratory: no cough, no dyspnea, no dyspnea on exertion, no hemoptysis, no sputum production and no wheezing Cardiovascular: no chest pain, no chest pain at rest, no chest pain with activity, no dyspnea, no dyspnea at rest, no dyspnea on exertion, no orthopnea, no palpitations, no lightheadedness, no syncope and no edema Gastrointestinal: no abdominal pain, no heartburn, no nausea, no vomiting, no pain with swallowing, no dysphagia, no change in bowel habits, no diarrhea/loose stools, no blood in stools and no melena Genitourinary: no dysuria, no urinary frequency, no urinary urgency, no urinary incontinence, no hematuria, no dysmenorrhea and no abnormal vaginal bleeding Musculoskeletal: no joint pain, no deformity, no stiffness, no limited range of motion, no muscle weakness and no muscle atrophy Integumentary: no rash, no lesions, no erythema, no pruritus, no urticaria and no unusual bruising Neurologic: no gait abnormality, no unsteadiness, no falls, no localized weakness, no generalized weakness, no paralysis, no loss of sensation, no tingling, no numbness, no paresthesia, no lack of coordination, no abnormal movements, no restless legs, no seizure-like activity, no dizziness, no syncope, no headache(s) and no memory loss Psychiatric: no behavioral changes, no depression, no suicidal ideation, no homicidal ideation, no panic attacks, no auditory hallucinations and no visual hallucinations Endocrine: no fatigue, no polydipsia, no polyuria, no cold intolerance, no heat intolerance and no flushing Hematologic / Lymphatic: no easy bleeding, no easy bruising, no lymphadenopathy, no night sweats and no unexplained weight loss Allergy / Immunological: no lip swelling, no seasonal rhinorrhea, no tongue swelling, no urticaria and no wheezing Physical Exam Constitutional: WD/WN, vitals as above Eyes: PERRL, conjunctivae normal, anicteric sclerae normal visual douglas by confrontation and PERRL ENMT: external ear and nose normal, oropharynx normal Neck: trachea midline, no thyromegaly normal visual inspection Respiratory: normal respiratory effort, lungs clear to auscultation normal percussion Cardiovascular: RRR, no murmur, no edema Gastrointestinal (Abdomen): normal bowel sounds, soft, nontender, no hepa tosplenomegaly Musculoskeletal: no cyanosis or clubbing, extremities motor strength 5/5 Skin: no rashes, warm and dry Neurologic: patellar DTR's 2+ bilat, sensation intact and PERRL, EOMI, accommodation nl, no face palsy, no dysarthria CN's II-XI intact bilaterally Psychiatric: A+Ox3, euthymic affect Lymphatic: no cervical or axillary lymphadenopathy Results & Data Vital Signs (Past 12 Hours) Vital Signs Temp Pulse Pulse Resp BP BP Pulse Ox 12/13/18 07:29 77 22 99 12/13/18 06:30 69 22 99/53 L 106/49 L 100 12/13/18 06:00 79 22 80/47 L 104/47 L 98 12/13/18 05:30 70 22 91/53 L 115/50 L 99 12/13/18 05:17 72 22 100 12/13/18 05:00 75 22 87/57 L 113/51 L 100 12/13/18 04:30 71 22 91/56 L 112/52 L 100 12/13/18 04:00 71 22 85/55 L 113/48 L 100 12/13/18 03:58 62 12/13/18 03:30 36.3 C L 70 22 93/51 L 109/54 L 100 12/13/18 03:00 69 22 96/56 L 108/55 L 100 12/13/18 02:30 69 22 88/49 L 99/50 L 100 12/13/18 02:00 62 65 22 105/61 125/53 L 100 12/13/18 01:30 61 22 99/49 L 105/55 L 100 12/13/18 01:00 60 22 82/48 L 103/56 L 100 12/13/18 00:30 63 22 104/53 L 114/62 100 12/13/18 00:00 36.4 C L 60 22 88/52 L 109/61 100 12/12/18 23:54 64 12/12/18 23:30 65 22 136/61 100 12/12/18 23:17 71 22 110/68 118/61 100 12/12/18 22:45 74 22 120/72 125/60 100
[2018-12-13] MEDS: POTASSIUM CHLORIDE / WTR 10 MEQ/100 ML PLCT IV SCH ×2 (10:47→11:50)
[2018-12-13] MEDS: cefTRIAXone SODIUM 2,000 MG in DEXTROSE 5% 50 ML IV SCH (10:47)
--- NOTE | 2018-12-13 11:21 | Pharmacy Report ---
Pharmacy Glycemic Short Note 2 - Date of Service December 13, 2018 - Glycemic Short BSG Results (Last 24 hours): 12/12/18 12/12/18 12/12/18 14:37 14:43 14:52 Glucose 93 POC Glucose 66 L* POC Glucose (other) 100 H 12/12/18 12/12/18 12/13/18 18:02 23:44 04:18 Glucose 104 H POC Glucose 120 H POC Glucose (other) 154 H 12/13/18 05:43 Glucose POC Glucose POC Glucose (other) 106 H OUTPATIENT ANTIDIABETIC REGIMEN: * N/A * A1c = 6.3% 12/13/18 (consistent with "prediabetes") ASSESSMENT: 12/13/18 * Patient admitted for agitation, confusion, a fib w/ RVR and SOB - possible toxic alcohol ingestion vs alcohol withdrawal * [facility], requiring pressor support (norepi ~0.07mcg/kg/min this AM) and receiving ABX for PNA * BSGs have remained < 180 thus far despite multiple significant stressors * She remains NPO at this time as attempts to wean sedation and possibly liberate from vent will be made today * Thus far she has received 0 insulin PLAN FOR INPATIENT GLYCEMIC CONTROL: * Basal insulin * none * Bolus insulin * NovoLog per scale Q6hrs while NPO * Goal Range: Low 140 mg/dL - High 180 mg/dL * Correction Factor: 30 mg/dL/unit * Nutritional / Prandial insulin: none required at this time PLAN FOR DISCHARGE: * give A1c results lifestyle modifications alone would be recommended. given her h/o EtOH and/or isopropyl alcohol ingestion the use of metformin should be discouraged
[2018-12-13] MEDS: PROPOFOL 1,000 MG/100 ML VIAL IV SCH (12:26)
--- NOTE | 2018-12-13 13:46 | Palliative Care Progress Note ---
Date of Service December 13, 2018 Subjective Consult received. Chart reviewed. Will follow and and see how patient progresses today, and if she is able to be extubated. If she is extubated and able to make decisions will discuss code status and goals of care with her. Otherwise, will contact patient's documented POA, her sister Aby, in [place]. Results & Data Vital Signs (Past 12 Hours) Vital Signs Temp Pulse Pulse Resp BP BP BP 12/13/18 11:40 74 22 12/13/18 11:30 76 87/50 L 12/13/18 11:01 76 89/52 L 12/13/18 10:31 75 92/52 L 12/13/18 10:01 71 97/55 L 12/13/18 09:31 73 100/53 L 12/13/18 09:01 78 87/51 L 12/13/18 08:31 81 93/39 L 12/13/18 08:01 37.1 C 78 93/53 L 12/13/18 07:31 78 87/55 L 12/13/18 07:29 77 22 12/13/18 07:01 75 88/52 L 12/13/18 06:30 69 22 99/53 L 106/49 L 12/13/18 06:00 79 22 80/47 L 104/47 L 12/13/18 05:30 70 22 91/53 L 115/50 L 12/13/18 05:17 72 22 12/13/18 05:00 75 22 87/57 L 113/51 L 12/13/18 04:30 71 22 91/56 L 112/52 L 12/13/18 04:00 71 22 85/55 L 113/48 L 12/13/18 03:58 62 12/13/18 03:30 36.3 C L 70 22 93/51 L 109/54 L 12/13/18 03:00 69 22 96/56 L 108/55 L 12/13/18 02:30 69 22 88/49 L 99/50 L 12/13/18 02:00 62 65 22 105/61 125/53 L Pulse Ox 12/13/18 11:40 98 12/13/18 11:30 98 12/13/18 11:01 98 12/13/18 10:31 98 12/13/18 10:01 98 12/13/18 09:31 98 12/13/18 09:01 97 12/13/18 08:31 97 12/13/18 08:01 98 12/13/18 07:31 98 12/13/18 07:29 99 12/13/18 07:01 100 12/13/18 06:30 100 12/13/18 06:00 98 12/13/18 05:30 99 12/13/18 05:17 100 12/13/18 05:00 100 12/13/18 04:30 100 12/13/18 04:00 100 12/13/18 03:58 12/13/18 03:30 100 12/13/18 03:00 100 12/13/18 02:30 100 12/13/18 02:00 100
--- NOTE | 2018-12-13 15:55 | Procedure Note ---
Procedure Note Date of Service December 13, 2018 Note Procedure: Central venous access Pre-procedure indication: Need for medication administration Post-procedure Diagnosis: same as above Prior to Procedure: Informed Consent: The risks, benefits, indications, potential complications, a nd alternatives were explained to the POA and informed consent obtained. Unable to obtain from patient because of medical condition - intubation with chemical sedation. Attending Staff: Quinn Cha DO Resident/APC: Vira Briones DO Skin Prep: Chlorhexidine Anesthesia: 4 mL 1% lidocaine without epinephrine The identity of the patient was confirmed and a bedside time out was performed. Description of Procedure: After sterile prep and sterile drape utilizing standard sterile technique the superficial skin of the right internal jugular area was anesthetized. The target vessel was identified and entered with an 18- gauge needle. Dark venous blood return was noted. A guidewire was inserted through the needle and into the vessel. The needle was withdrawn and a skin dion was made. A tissue dilator was advanced via Seldinger technique and removed. A triple lumen catheter was inserted via Seldinger technique and the guidewire removed. All ports riaz and flushed easily. A Biopatch was placed, and the catheter was secured via silk suture. A sterile dressing was then applied. Complications: None Estimated blood loss: Trace Patient tolerated the procedure well. Procedure Date: Noted Above Procedure: Procedural Ultrasound Indication: Central venous access Attending: Quinn Cha DO Resident/Physician Commodity Director: Anselmo Artery visualized: Yes Vein visualized: Yes Compressible Vein: Yes Vein patent: Yes Guidewire or Short Catheter seen in vein prior to dilation: Yes Line confirmed in Vein with ultrasound: Yes Lung Sliding on side of attempt (if applicable): NA If no lung sliding or not obtained has CXR been ordered: Yes Impression: Successful central venous access placement Images obtained are saved for permanent record Supervising Physician Co-Signing Physician Notes I was present during the entire procedure. Coding Resident Activity Tracking Resident Involvement: Resident Care Provided Care Provided: [facility]
--- NOTE | 2018-12-13 16:19 | XRay Report ---
XR chest 1V portable CLINICAL HISTORY: s/p central venous cath placement tube position COMPARISON STUDY: 12/13/2018 8:47 AM FINDINGS: Central catheter placed in the superior vena cava. No evidence for pneumothorax. Endotracheal tube 2 cm above the rowena. All additional findings are stable. No evidence for pneumoth orax. IMPRESSION: 1. Endotracheal tube 2 cm above the rowena. 2. Central catheter placed in the superior vena cava. 3. No evidence for pneumothorax. The above report was generated using voice recognition software. It may contain grammatical, syntax or spelling errors. Electronically signed by: Sundar Benson M.D. 12/13/2018 4:18 PM
[2018-12-13] MEDS: HEPARIN SODIUM/DEXTROSE 25,000 UNITS/500 ML BAG IV SCH (16:30)
[2018-12-13] MEDS: POTASSIUM CHLORIDE / WTR 20 MEQ/100 ML PLCT IV SCH ×2 (16:55→18:32)
[2018-12-13] MEDS: fentaNYL DRIP 1,250 MCG/250 ML BAG IV SCH (16:59)
[2018-12-13] MEDS: NOREPINEPHRINE BIT INJ 8 MG in DEXTROSE 5% 500 ML IV SCH (17:00)
--- NOTE | 2018-12-13 17:08 | Hospitalist Progress Note ---
Date of Service December 13, 2018 Assessment & Plan (1) Hypovolemic shock: likely due to dehydration, metabolic acidosis no signs of infection, WBC normal, no fever no signs of bleeding, Hb is dropped slightly to 9.9, likely from fluids no hypoxic respiratory failure so doubt obstructive shock responded quite well to IV fluids and Levophed continues to require Levophed on 12/13 will try to titrate as tolerated (2) Metabolic acidosis: elevated anion gap, could be due to TERRY, possible ingestion of rubbing alcohol, unclear history pH was 7.1 on ABG on admission Anion gap closed in first 24 hours, still with some acidosis with CO2 17 pH improved on gas continue to ventilate to blow off acid Cr markedly improved (3) TERRY (acute kidney injury): likely due to dehydration and hypotension no signs of septic shock could also be due to ingestion of unknown substance ( admitted to drinking rubbing alcohol) later said that patient did not drink rubbing alcohol aggressive hydration at first due to hypotension miguel placed for accurate UO, was 700cc on 12/13 nephrology consulted for recommendations discussed with Dr. Chandra Cr markedly improved to 2.66 from 4.7 K low at 3.3, will replace continue IV fluids (4) Acute respiratory failure: agitated and not protecting airway in the ED intubated to protect airway ABG shows that this is not hypoxic failure tolerated wean trial in evening on 12/13, extubated breathing stable on 2L NC (5) Atrial fibrillation with RVR: required cardioversion in the ED due to hemodynamic instability now in sinus rhythm typically on Coreg and Xarelto, unsure if she was actually taking at home continue heparin drip echo shows EF 55%, bilateral atrial enlargement (6) Alcohol dependence: h/o such, per family has not been drinking alcohol for two years ETOH negative on admission will monitor for any signs of withdrawal now that extubated (7) Neurocognitive disorder: per family, has alcohol induced dementia needs cared for by started drinking again and was neglecting care of the will see how her mental state evolves now that she is extubated and not sedated Subjective no major issues overnight d/w Dr Cha and Dr. Chandra in the ICU clinically improving, labs are better likely keep intubated today with wean trial tomorrow no family at the bedside at the time of my visit Review of Systems Review of Systems: Unobtainable due to endotracheal tube Physical Exam Constitutional: well developed, well nourished, + ill appearing and + obese Eyes: PERRL, conjunctivae normal, anicteric sclerae ENMT: Nose: no nasal discharge Mouth: + oral mucosal abnormality (very dry) and + dentition abnormality (several loose teeth, several teeth knocked out) Neck: trachea midline, no thyromegaly Respiratory: normal respiratory effort, lungs clear to auscultation Cardiovascular: RRR, no murmur, no edema Gastrointestinal (Abdomen): normal bowel sounds, soft, nontender, no hepatosplenomegaly Musculoskeletal: Head/Neck/Chest: normocephalic and head atraumatic Extremities: no cyanosis and no clubbing Skin: no rashes, warm and dry Neurologic: CN's II-XI intact bilaterally and moves all extremities; no focal motor deficits Psychiatric: Orientation: + not alert (sedated), + not oriented to person, + not oriented to place and + not oriented to time Apperance: + disheveled Lymphatic: no cervical or axillary lymphadenopathy Results & Data Vital Signs (Past 12 Hours) Vital Signs Temp Pulse Pulse Resp BP BP BP 12/13/18 16:57 72 18 12/13/18 16:27 36.7 C 12/13/18 14:00 70 23 12/13/18 13:30 74 111/66 12/13/18 13:00 73 100/52 L 12/13/18 12:30 75 95/52 L 12/13/18 12:12 86 93/52 L 12/13/18 12:00 36.9 C 79 90/50 L 12/13/18 11:40 74 22 12/13/18 11:30 76 87/50 L 12/13/18 11:01 76 89/52 L 12/13/18 10:31 75 92/52 L 12/13/18 10:01 71 97/55 L 12/13/18 09:31 73 100/53 L 12/13/18 09:01 78 87/51 L 12/13/18 08:31 81 93/39 L 12/13/18 08:01 37.1 C 78 93/53 L 12/13/18 07:31 78 87/55 L 12/13/18 07:29 77 22 12/13/18 07:01 75 88/52 L 12/13/18 06:30 69 22 99/53 L 106/49 L 12/13/18 06:00 79 22 80/47 L 104/47 L 12/13/18 05:30 70 22 91/53 L 115/50 L 12/13/18 05:17 72 22 Pulse Ox 12/13/18 16:57 98 12/13/18 16:27 12/13/18 14:00 98 12/13/18 13:30 98 12/13/18 13:00 97 12/13/18 12:30 98 12/13/18 12:12 96 12/13/18 12:00 98 12/13/18 11:40 98 12/13/18 11:30 98 12/13/18 11:01 98 12/13/18 10:31 98 12/13/18 10:01 98 12/13/18 09:31 98 12/13/18 09:01 97 12/13/18 08:31 97 12/13/18 08:01 98 12/13/18 07:31 98 12/13/18 07:29 99 12/13/18 07:01 100 12/13/18 06:30 100 12/13/18 06:00 98 12/13/18 05:30 99 12/13/18 05:17 100 Laboratory Results Laboratory Results - last 24 hr 12/12/18 12/12/18 12/12/18 14:43 14:52 17:32 WBC RBC Hgb POC Hgb 11.9 L Hct POC Hct 35 L MCV MCH MCHC RDW Std Deviation RDW Coeff of Hari Plt Count MPV Immature Gran % (Auto) Neut % (Auto) Lymph % (Auto) Anderson % (Auto) Eos % (Auto) Baso % (Auto) Immature Gran # (Auto) Neut # (Auto) Lymph # (Auto) Anderson # (Auto) Eos # (Auto) Baso # (Auto) PT INR APTT PTT Ratio Sample Site POC pH POC pCO2 POC pO2 POC HCO3 POC Base Excess POC ABG O2 Sat Josr Test O2 Delivery Device POC O2 Rate Minute Ventilation POC FiO2 Tidal Volume PEEP POC Sodium 131 L Sodium POC Potassium 4.8 Potassium POC Chloride 100 L Chloride Carbon Dioxide POC Total CO2 18 L Anion Gap POC Anion Gap 18.0 POC BUN 63 H BUN Creatinine POC Creatinine 4.3 H Est Cr Clr Drug Dosing Est GFR ( Amer) Est GFR (Non-Af Amer) BUN/Creatinine Ratio Glucose POC Glucose 66 L* POC Glucose (other) 100 H Estimat Average Glucose Hemoglobin A1c Osmolality Lactate Calcium POC Ioniz Calcium Jenny 1.09 L Phosphorus Magnesium Iron Ferritin Total Bilirubin Direct Bilirubin AST ALT Alkaline Phosphatase Ammonia Troponin I Total Protein Albumin Folate Urine Color Urine Appearance Urine pH Ur Specific [place] Urine Protein Urine Glucose (UA) Urine Ketones Urine Blood Urine Nitrite Urine Bilirubin Urine Urobilinogen Ur Leukocyte Esterase Urine WBC (Auto) Urine RBC (Auto) U Hyaline Cast (Auto) U Epithel Cells (Auto) Urine Bacteria (Auto) Urine Osmolality Ur Random Creatinine Nasal Screen MRSA (PCR) Negative Ethyl Alcohol mg/dL Hepatitis C Ab Screen Blood Type Antibody Screen 12/12/18 12/12/18 12/12/18 17:49 17:49 17:49 WBC RBC Hgb POC Hgb Hct POC Hct MCV MCH MCHC RDW Std Deviation RDW Coeff of Hari Plt Count MPV Immature Gran % (Auto) Neut % (Auto) Lymph % (Auto) Anderson % (Auto) Eos % (Auto) Baso % (Auto) Immature Gran # (Auto) Neut # (Auto) Lymph # (Auto) Anderson # (Auto) Eos # (Auto) Baso # (Auto) PT INR APTT PTT Ratio Sample Site POC pH POC pCO2 POC pO2 POC HCO3 POC Base Excess POC ABG O2 Sat Josr Test O2 Delivery Device POC O2 Rate Minute Ventilation POC FiO2 Tidal Volume PEEP POC Sodium Sodium POC Potassium Potassium POC Chloride Chloride Carbon Dioxide POC Total CO2 Anion Gap POC Anion Gap POC BUN BUN Creatinine POC Creatinine Est Cr Clr Drug Dosing Est GFR ( Amer) Est GFR (Non-Af Amer) BUN/Creatinine Ratio Glucose POC Glucose POC Glucose (other) Estimat Average Glucose Hemoglobin A1c Osmolality Lactate Calcium POC Ioniz Calcium Jenny Phosphorus Magnesium Iron Ferritin Total Bilirubin Direct Bilirubin AST ALT Alkaline Phosphatase Ammonia Troponin I Total Protein Albumin Folate Urine Color Yellow Urine Appearance Cloudy H Urine pH 5.0 Ur Specific [place] 1.015 Urine Protein 2+ H Urine Glucose (UA) Negative Urine Ketones Negative Urine Blood 2+ H Urine Nitrite Negative Urine Bilirubin Negative Urine Urobilinogen Negative Ur Leukocyte Esterase 3+ H Urine WBC (Auto) >30 H Urine RBC (Auto) 5-10 H U Hyaline Cast (Auto) 1-5 U Epithel Cells (Auto) 20-30 H Urine Bacteria (Auto) 2+ H Urine Osmolality 313 L Ur Random Creatinine 94.4 Nasal Screen MRSA (PCR) Ethyl Alcohol mg/dL Hepatitis C Ab Screen Blood Type Antibody Screen 12/12/18 12/12/18 12/12/18 17:59 18:02 21:22 WBC RBC Hgb POC Hgb Hct POC Hct MCV MCH MCHC RDW Std Deviation RDW Coeff of Hari Plt Count MPV Immature Gran % (Auto) Neut % (Auto) Lymph % (Auto) Anderson % (Auto) Eos % (Auto) Baso % (Auto) Immature Gran # (Auto) Neut # (Auto) Lymph # (Auto) Anderson # (Auto) Eos # (Auto) Baso # (Auto) PT INR APTT PTT Ratio Sample Site L Radial R Brachial POC pH 7.17 L* 7.36 POC pCO2 36 23 L POC pO2 171 H 149 H POC HCO3 13 L 13 L POC Base Excess -15.0 L -13.0 L POC ABG O2 Sat 99.0 H 99.0 H Josr Test Pass NA O2 Delivery Device Ventilator Ventilator POC O2 Rate 18 22 Minute Ventilation 8.9 11.3 POC FiO2 50 40 Tidal Volume 450 450 PEEP 5 5 POC Sodium Sodium POC Potassium Potassium POC Chloride Chloride Carbon Dioxide POC Total CO2 14 L 13 L Anion Gap POC Anion Gap POC BUN BUN Creatinine POC Creatinine Est Cr Clr Drug Dosing Est GFR ( Amer) Est GFR (Non-Af Amer) BUN/Creatinine Ratio Glucose POC Glucose 120 H POC Glucose (other) Estimat Average Glucose Hemoglobin A1c Osmolality Lactate Calcium POC Ioniz Calcium Jenny Phosphorus Magnesium Iron Ferritin Total Bilirubin Direct Bilirubin AST ALT Alkaline Phosphatase Ammonia Troponin I Total Protein Albumin Folate Urine Color Urine Appearance Urine pH Ur Specific [place] Urine Protein Urine Glucose (UA) Urine Ketones Urine Blood Urine Nitrite Urine Bilirubin Urine Urobilinogen Ur Leukocyte Esterase Urine WBC (Auto) Urine RBC (Auto) U Hyaline Cast (Auto) U Epithel Cells (Auto) Urine Bacteria (Auto) Urine Osmolality Ur Random Creatinine Nasal Screen MRSA (PCR) Ethyl Alcohol mg/dL Hepatitis C Ab Screen Blood Type Antibody Screen 12/12/18 12/12/18 12/12/18 22:27 22:27 22:27 WBC RBC Hgb POC Hgb Hct POC Hct MCV MCH MCHC RDW Std Deviation RDW Coeff of Hari Plt Count MPV Immature Gran % (Auto) Neut % (Auto) Lymph % (Auto) Anderson % (Auto) Eos % (Auto) Baso % (Auto) Immature Gran # (Auto) Neut # (Auto) Lymph # (Auto) Anderson # (Auto) Eos # (Auto) Baso # (Auto) PT INR APTT PTT Ratio Sample Site POC pH POC pCO2 POC pO2 POC HCO3 POC Base Excess POC ABG O2 Sat Josr Test O2 Delivery Device POC O2 Rate Minute Ventilation POC FiO2 Tidal Volume PEEP POC Sodium Sodium POC Potassium Potassium POC Chloride Chloride Carbon Dioxide POC Total CO2 Anion Gap POC Anion Gap POC BUN BUN Creatinine POC Creatinine Est Cr Clr Drug Dosing Est GFR ( Amer) Est GFR (Non-Af Amer) BUN/Creatinine Ratio Glucose POC Glucose POC Glucose (other) Estimat Average Glucose Hemoglobin A1c Osmolality Lactate Calcium POC Ioniz Calcium Jenny Phosphorus Magnesium Iron Ferritin Total Bilirubin Direct Bilirubin AST ALT Alkaline Phosphatase Ammonia Cancelled Troponin I Total Protein Albumin Folate > 24.00 Urine Color Urine Appearance Urine pH Ur Specific [place] Urine Protein Urine Glucose (UA) Urine Ketones Urine Blood Urine Nitrite Urine Bilirubin Urine Urobilinogen Ur Leukocyte Esterase Urine WBC (Auto) Urine RBC (Auto) U Hyaline Cast (Auto) U Epithel Cells (Auto) Urine Bacteria (Auto) Urine Osmolality Ur Random Creatinine Nasal Screen MRSA (PCR) Ethyl Alcohol mg/dL < 3.0 Hepatitis C Ab Screen Blood Type Antibody Screen 12/12/18 12/12/18 12/12/18 22:27 22:27 22:27 WBC RBC Hgb POC Hgb Hct POC Hct MCV MCH MCHC RDW Std Deviation RDW Coeff of Hari Plt Count MPV Immature Gran % (Auto) Neut % (Auto) Lymph % (Auto) Anderson % (Auto) Eos % (Auto) Baso % (Auto) Immature Gran # (Auto) Neut # (Auto) Lymph # (Auto) Anderson # (Auto) Eos # (Auto) Baso # (Auto) PT INR APTT PTT Ratio Sample Site POC pH POC pCO2 POC pO2 POC HCO3 POC Base Excess POC ABG O2 Sat Josr Test O2 Delivery Device POC O2 Rate Minute Ventilation POC FiO2 Tidal Volume PEEP POC Sodium Sodium POC Potassium Potassium POC Chloride Chloride Carbon Dioxide POC Total CO2 Anion Gap POC Anion Gap POC BUN BUN Creatinine POC Creatinine Est Cr Clr Drug Dosing Est GFR ( Amer) Est GFR (Non-Af Amer) BUN/Creatinine Ratio Glucose POC Glucose POC Glucose (other) Estimat Average Glucose Hemoglobin A1c Osmolality 301 H Lactate Calcium POC Ioniz Calcium Jenny Phosphorus Magnesium Iron Ferritin Total Bilirubin Direct Bilirubin AST ALT Alkaline Phosphatase Ammonia Troponin I < 0.015 Total Protein Albumin Folate Urine Color Urine Appearance Urine pH Ur Specific [place] Urine Protein Urine Glucose (UA) Urine Ketones Urine Blood Urine Nitrite Urine Bilirubin Urine Urobilinogen Ur Leukocyte Esterase Urine WBC (Auto) Urine RBC (Auto) U Hyaline Cast (Auto) U Epithel Cells (Auto) Urine Bacteria (Auto) Urine Osmolality Ur Random Creatinine Nasal Screen MRSA (PCR) Ethyl Alcohol mg/dL Hepatitis C Ab Screen Blood Type A Negative Antibody Screen NEGATIVE 12/12/18 12/12/18 12/12/18 22:27 22:27 23:44 WBC RBC Hgb POC Hgb Hct POC Hct MCV MCH MCHC RDW Std Deviation RDW Coeff of Hari Plt Count MPV Immature Gran % (Auto) Neut % (Auto) Lymph % (Auto) Anderson % (Auto) Eos % (Auto) Baso % (Auto) Immature Gran # (Auto) Neut # (Auto) Lymph # (Auto) Anderson # (Auto) Eos # (Auto) Baso # (Auto) PT INR APTT PTT Ratio Sample Site POC pH POC pCO2 POC pO2 POC HCO3 POC Base Excess POC ABG O2 Sat Josr Test O2 Delivery Device POC O2 Rate Minute Ventilation POC FiO2 Tidal Volume PEEP POC Sodium Sodium POC Potassium Potassium POC Chloride Chloride Carbon Dioxide POC Total CO2 Anion Gap POC Anion Gap POC BUN BUN Creatinine POC Creatinine Est Cr Clr Drug Dosing Est GFR ( Amer) Est GFR (Non-Af Amer) BUN/Creatinine Ratio Glucose POC Glucose POC Glucose (other) 154 H Estimat Average Glucose Hemoglobin A1c Osmolality Lactate 0.9 Calcium POC Ioniz Calcium Jenny Phosphorus Magnesium Iron Ferritin Total Bilirubin Direct Bilirubin AST ALT Alkaline Phosphatase Ammonia Troponin I Total Protein Albumin Folate Urine Color Urine Appearance Urine pH Ur Specific [place] Urine Protein Urine Glucose (UA) Urine Ketones Urine Blood Urine Nitrite Urine Bilirubin Urine Urobilinogen Ur Leukocyte Esterase Urine WBC (Auto) Urine RBC (Auto) U Hyaline Cast (Auto) U Epithel Cells (Auto) Urine Bacteria (Auto) Urine Osmolality Ur Random Creatinine Nasal Screen MRSA (PCR) Ethyl Alcohol mg/dL Hepatitis C Ab Screen Neg Blood Type Antibody Screen 12/13/18 12/13/18 12/13/18 00:16 00:16 04:18 WBC 4.87 RBC 3.36 L Hgb 9.9 L POC Hgb Hct 28.4 L POC Hct MCV 84.5 MCH 29.5 MCHC 34.9 RDW Std Deviation 47.3 H RDW Coeff of Hari 15.2 H Plt Count 327 MPV 9.4 Immature Gran % (Auto) 0.4 Neut % (Auto) 76.2 Lymph % (Auto) 14.2 Anderson % (Auto) 7.8 Eos % (Auto) 1.4 Baso % (Auto) 0.0 Immature Gran # (Auto) 0.02 Neut # (Auto) 3.71 Lymph # (Auto) 0.69 L Anderson # (Auto) 0.38 Eos # (Auto) 0.07 Baso # (Auto) 0.00 PT INR APTT 99.0 H* PTT Ratio 3.7 Sample Site POC pH POC pCO2 POC pO2 POC HCO3 POC Base Excess POC ABG O2 Sat Josr Test O2 Delivery Device POC O2 Rate Minute Ventilation POC FiO2 Tidal Volume PEEP POC Sodium Sodium POC Potassium Potassium POC Chloride Chloride Carbon Dioxide POC Total CO2 Anion Gap POC Anion Gap POC BUN BUN Creatinine POC Creatinine Est Cr Clr Drug Dosing Est GFR ( Amer) Est GFR (Non-Af Amer) BUN/Creatinine Ratio Glucose POC Glucose POC Glucose (other) Estimat Average Glucose Hemoglobin A1c Osmolality Lactate Calcium POC Ioniz Calcium Jenny Phosphorus Magnesium Iron Ferritin Total Bilirubin Direct Bilirubin AST ALT Alkaline Phosphatase Ammonia 15.7 Troponin I Total Protein Albumin Folate Urine Color Urine Appearance Urine pH Ur Specific [place] Urine Protein Urine Glucose (UA) Urine Ketones Urine Blood Urine Nitrite Urine Bilirubin Urine Urobilinogen Ur Leukocyte Esterase Urine WBC (Auto) Urine RBC (Auto) U Hyaline Cast (Auto) U Epithel Cells (Auto) Urine Bacteria (Auto) Urine Osmolality Ur Random Creatinine Nasal Screen MRSA (PCR) Ethyl Alcohol mg/dL Hepatitis C Ab Screen Blood Type Antibody Screen 12/13/18 12/13/18 12/13/18 04:18 04:18 04:18 WBC RBC Hgb POC Hgb Hct POC Hct MCV MCH MCHC RDW Std Deviation RDW Coeff of Hari Plt Count MPV Immature Gran % (Auto) Neut % (Auto) Lymph % (Auto) Anderson % (Auto) Eos % (Auto) Baso % (Auto) Immature Gran # (Auto) Neut # (Auto) Lymph # (Auto) Anderson # (Auto) Eos # (Auto) Baso # (Auto) PT 11.3 INR 1.1 APTT Cancelled PTT Ratio Cancelled Sample Site POC pH POC pCO2 POC pO2 POC HCO3 POC Base Excess POC ABG O2 Sat Josr Test O2 Delivery Device POC O2 Rate Minute Ventilation POC FiO2 Tidal Volume PEEP POC Sodium Sodium 134 L POC Potassium Potassium 3.3 L D POC Chloride Chloride 108 H Carbon Dioxide 17 L POC Total CO2 Anion Gap 9.0 POC Anion Gap POC BUN BUN 59 H Creatinine 2.66 H D POC Creatinine Est Cr Clr Drug Dosing 23.2 Est GFR ( Amer) 21.1 Est GFR (Non-Af Amer) 18.2 BUN/Creatinine Ratio 22.0 H Glucose 104 H POC Glucose POC Glucose (other) Estimat Average Glucose 134 Hemoglobin A1c 6.3 H Osmolality Lactate Calcium 7.2 L D POC Ioniz Calcium Jenny Phosphorus 3.4 Magnesium 2.2 Iron Ferritin Total Bilirubin 0.3 Direct Bilirubin 0.1 AST 34 ALT 38 Alkaline Phosphatase 146 H Ammonia Troponin I < 0.015 Total Protein 6.0 L D Albumin 1.7 L Folate Urine Color Urine Appearance Urine pH Ur Specific [place] Urine Protein Urine Glucose (UA) Urine Ketones Urine Blood Urine Nitrite Urine Bilirubin Urine Urobilinogen Ur Leukocyte Esterase Urine WBC (Auto) Urine RBC (Auto) U Hyaline Cast (Auto) U Epithel Cells (Auto) Urine Bacteria (Auto) Urine Osmolality Ur Random Creatinine Nasal Screen MRSA (PCR) Ethyl Alcohol mg/dL Hepatitis C Ab Screen Blood Type Antibody Screen 12/13/18 12/13/18 12/13/18 04:18 05:43 07:55 WBC RBC Hgb POC Hgb Hct POC Hct MCV MCH MCHC RDW Std Deviation RDW Coeff of Hari Plt Count MPV Immature Gran % (Auto) Neut % (Auto) Lymph % (Auto) Anderson % (Auto) Eos % (Auto) Baso % (Auto) Immature Gran # (Auto) Neut # (Auto) Lymph # (Auto) Anderson # (Auto) Eos # (Auto) Baso # (Auto) PT INR APTT 48.7 H* PTT Ratio 1.8 Sample Site POC pH POC pCO2 POC pO2 POC HCO3 POC Base Excess POC ABG O2 Sat Josr Test O2 Delivery Device POC O2 Rate Minute Ventilation POC FiO2 Tidal Volume PEEP POC Sodium Sodium POC Potassium Potassium POC Chloride Chloride Carbon Dioxide POC Total CO2 Anion Gap POC Anion Gap POC BUN BUN Creatinine POC Creatinine Est Cr Clr Drug Dosing Est GFR ( Amer) Est GFR (Non-Af Amer) BUN/Creatinine Ratio Glucose POC Glucose POC Glucose (other) 106 H Estimat Average Glucose Hemoglobin A1c Osmolality Lactate Calcium POC Ioniz Calcium Jenny Phosphorus Magnesium Iron Ferritin Total Bilirubin Direct Bilirubin AST ALT Alkaline Phosphatase Ammonia 16.0 Troponin I Total Protein Albumin Folate Urine Color Urine Appearance Urine pH Ur Specific [place] Urine Protein Urine Glucose (UA) Urine Ketones Urine Blood Urine Nitrite Urine Bilirubin Urine Urobilinogen Ur Leukocyte Esterase Urine WBC (Auto) Urine RBC (Auto) U Hyaline Cast (Auto) U Epithel Cells (Auto) Urine Bacteria (Auto) Urine Osmolality Ur Random Creatinine Nasal Screen MRSA (PCR) Ethyl Alcohol mg/dL Hepatitis C Ab Screen Blood Type Antibody Screen 12/13/18 12/13/18 12/13/18 10:15 10:15 11:55 WBC RBC Hgb POC Hgb Hct POC Hct MCV MCH MCHC RDW Std Deviation RDW Coeff of Hari Plt Count MPV Immature Gran % (Auto) Neut % (Auto) Lymph % (Auto) Anderson % (Auto) Eos % (Auto) Baso % (Auto) Immature Gran # (Auto) Neut # (Auto) Lymph # (Auto) Anderson # (Auto) Eos # (Auto) Baso # (Auto) PT INR APTT PTT Ratio Sample Site POC pH POC pCO2 POC pO2 POC HCO3 POC Base Excess POC ABG O2 Sat Josr Test O2 Delivery Device POC O2 Rate Minute Ventilation POC FiO2 Tidal Volume PEEP POC Sodium Sodium POC Potassium Potassium POC Chloride Chloride Carbon Dioxide POC Total CO2 Anion Gap POC Anion Gap POC BUN BUN Creatinine POC Creatinine Est Cr Clr Drug Dosing Est GFR ( Amer) Est GFR (Non-Af Amer) BUN/Creatinine Ratio Glucose POC Glucose 134 H POC Glucose (other) Estimat Average Glucose Hemoglobin A1c Osmolality Lactate 0.9 Calcium POC Ioniz Calcium Jenny Phosphorus Magnesium Iron 44 Ferritin 470.0 H Total Bilirubin Direct Bilirubin AST ALT Alkaline Phosphatase Ammonia Troponin I Total Protein Albumin Folate Urine Color Urine Appearance Urine pH Ur Specific [place] Urine Protein Urine Glucose (UA) Urine Ketones Urine Blood Urine Nitrite Urine Bilirubin Urine Urobilinogen Ur Leukocyte Esterase Urine WBC (Auto) Urine RBC (Auto) U Hyaline Cast (Auto) U Epithel Cells (Auto) Urine Bacteria (Auto) Urine Osmolality Ur Random Creatinine Nasal Screen MRSA (PCR) Ethyl Alcohol mg/dL Hepatitis C Ab Screen Blood Type Antibody Screen Diagnostic Findings XR chest 1V portable CLINICAL HISTORY: s/p central venous cath placement tube position COMPARISON STUDY: 12/13/2018 8:47 AM FINDINGS: Central catheter placed in the superior vena cava. No evidence for pneumothorax. Endotracheal tube 2 cm above the rowena. All additional findings are stable. No evidence for pneumothorax. IMPRESSION: 1. Endotracheal tube 2 cm above the rowena. 2. Central catheter placed in the superior vena cava. 3. No evidence for pneumothorax. XR KUB/Abdomen 1 view CLINICAL HISTORY: og tube placement COMPARISON STUDY: 02/11/2017 FINDINGS: Nasogastric tube placed in the distal stomach. Nonobstructive bowel pattern. IMPRESSION: Nasogastric tube placed in the distal stomach. US renal/blad retro comp FINDINGS: Right kidney: Maximum dimension 10 cm. No evidence for hydronephrosis. Normal corticomedullary differentiation and cortical thickness. Left kidney: Maximum dimension 10.4 cm. No evidence for hydronephrosis. Normal corticomedullary differentiation and cortical thickness. Bladder: No bladder wall thickening. The bilateral ureteral jets were identified. IMPRESSION: Normal renal ultrasound. US abdomen limited FINDINGS: Pancreas: The pancreas demonstrates a normal echotexture. Liver: Unremarkable. Gallbladder: No gallbladder wall thickening. No gallstones. CBD: 6 mm Right kidney: No hydronephrosis. IMPRESSION: No significant abnormality identified within the within the right upper quad rant. ECHO: low normal EF of 50-55%, small pericardial effusion, elevated pulmonary artery pressures Medications Administered Current Inpatient Medications Albuterol (Duoneb) 3 ml INH Q4H PRN PRN Reason: Dyspnea Stop: 01/11/19 17:28 Aspirin (Aspirin Chew) 81 mg PO DAILY [facility] Stop: 01/12/19 08:59 Last Admin: 12/13/18 08:56 Dose: 81 mg Documented by: Atorvastatin Calcium (Lipitor) 40 mg PO QAM [facility] Stop: 01/12/19 08:59 Last Admin: 12/13/18 08:56 Dose: 40 mg Documented by: Bisacodyl (Dulcolax) 10 mg SD DAILY PRN PRN Reason: Constipation Stop: 01/11/19 17:28 Dextrose (Dextrose 50%) 25 - 50 ml IV UD PRN; Protocol PRN Reason: Hypoglycemia Protocol Stop: 01/11/19 17:28 Fentanyl Citrate (Fentanyl Citrate) 50 mcg IV Q2H PRN PRN Reason: Moderate Pain (4,5,6) Stop: 12/26/18 17:28 Glucagon (Glucagen) 1 mg SQ UD PRN; Protocol PRN Reason: Hypoglycemia Protocol Stop: 01/11/19 17:28 Glucose (Glucose 40%) 15 - 30 gm PO UD PRN; Protocol PRN Reason: Hypoglycemia Protocol Stop: 01/11/19 17:28 Glucose (Dex4 Glucose) 4 - 8 tabs PO UD PRN; Protocol PRN Reason: Hypoglycemia Protocol Stop: 01/11/19 17:28 Fentanyl Citrate (Fentanyl Drip) 1,250 mcg in 250 mls @ 4 mls/hr IV .Q24H [facility]; Protocol Stop: 12/26/18 16:14 Last Admin: 12/13/18 16:59 Dose: Not Given Documented by: Parenteral Electrolytes (Normosol-R) 1,000 mls @ 80 mls/hr IV .[id number] [facility] Stop: 01/11/19 17:28 Last Admin: 12/13/18 09:02 Dose: 80 mls/hr Documented by: Propofol (Diprivan) 1,000 mg in 100 mls @ 5.004 mls/hr IV .Q20H [facility]; Protocol Stop: 12/15/18 17:28 Last Admin: 12/13/18 12:26 Dose: 10 mcg/kg/min, 5 mls/hr Documented by: Famotidine 20 mg/ Syringe 5 mls @ 2.5 mls/min IV Q12H [facility] Stop: 01/11/19 19:59 Last Admin: 12/13/18 08:56 Dose: 2.5 mls/min Documented by: Folic Acid 1 mg/ Syringe 10 mls @ 5 mls/min IV QAM [facility] Stop: 01/12/19 08:59 Last Admin: 12/13/18 08:55 Dose: 5 mls/min Documented by: Thiamine HCl 100 mg/ Syringe 10 mls @ 2 mls/hr IV Q24H [facility] Stop: 01/12/19 17:59 Norepinephrine Bitartrate 8 mg (/ Dextrose) 508 mls @ 41.31 mls/hr IV .[id number] [facility]; Protocol Stop: 01/11/19 17:44 Last Admin: 12/13/18 17:00 Dose: 0.13 mcg/kg/min, 41.3 mls/hr Documented by: Heparin Sodium/Dextrose (Heparin Sodium/Dextrose) 25,000 units in 500 mls @ 22 mls/hr IV .[id number] [facility]; Protocol Stop: 01/11/19 18:29 Last Admin: 12/13/18 16:30 Dose: 1,100 units/hr, 22 mls/hr Documented by: Doxycycline Hyclate 100 mg/ (Dextrose) 110 mls @ 50 mls/hr IV BID [facility] Stop: 12/20/18 20:59 Ceftriaxone Sodium 2,000 mg/ (Dextrose) 50 mls @ 100 mls/hr IV Q24H [facility] Stop: 12/20/18 09:59 Last Infusion: 12/13/18 11:20 Dose: Infused Documented by: Potassium Chloride (K Edil / Wtr) 20 meq in 100 mls @ 50 mls/hr IV 1200,1400 [facility] Stop: 12/13/18 19:00 Last Admin: 12/13/18 16:55 Dose: 50 mls/hr Documented by: Insulin Aspart (Novolog Flexpen) 0 units SC Q6 [facility] Stop: 01/11/19 18:59 Last Admin: 12/13/18 14:10 Dose: Not Given Documented by: Miscellaneous (Carbohydrates For Hypoglycemia) 15 - 30 gm PO UD PRN PRN Reason: Hypoglycemia Treatment Stop: 01/11/19 17:28 Miscellaneous Information (Consult Glycemic Management Pharmacy) 1 ea N/A UD PRN; Protocol PRN Reason: Consult Stop: 01/11/19 18:05 Polyethylene Glycol (Miralax Powder Packet) 17 gm PO DAILY PRN PRN Reason: Constipation Stop: 01/11/19 17:28
[2018-12-13] MEDS: THIAMINE HCL 100 MG in SYRINGE 9 ML IV SCH (18:37)
[2018-12-13 18:47] LABS: iSTAT Allen Test Pass; iSTAT Arterial Blood Gas HCO3 17 meg/L (19-24); iSTAT Arterial Blood Gas pCO2 32 mmHg (35-46); iSTAT Arterial Blood Gas pH 7.32 (7.35-7.45); iSTAT Carbon Dioxide 17 mEq/l (24-31); iSTAT Site Art Line
[2018-12-13] MEDS: DOXYCYCLINE HYCLATE 100 MG in DEXTROSE 5% 100 ML IV SCH (20:26)
[2018-12-14] MEDS: INSULIN ASPART 100 UNITS/ML 3 ML PEN SC SCH ×4 (00:10→17:21)
[2018-12-14 04:20] LABS: Hematocrit (blood only) 27.8 % (37-47); Hemoglobin 9.5 g/dL (12.0-16.0); Mean Corpuscular Hgb Conc 34.2 g/dL (32-36); Mean Corpuscular Volume 85.5 fL (80-100); Mean Platelet Volume 9.1 fL (7.4-10.4); Platelet Count 267 K/uL (130-400); RDW Coefficient of Variation 15.4 % (11.5-14.5); RDW Standard Deviation 48.4 fL (36.4-46.3); Red Blood Count 3.25 M/uL (4.2-5.4); White Blood Count 7.94 K/uL (4.8-10.8)
[2018-12-14 04:41] LABS: INR 1.2 (0.9-1.1); Partial Thromboplastin Ratio 1.7; Prothrombin Time 12.3 Seconds (9.0-12.0)
[2018-12-14 04:46] LABS: Basophils # (auto) 0.01 K/uL (0-0.2); Basophils % (auto) 0.1 %; Dohle Bodies 1+; Eosinophils # (auto) 0.04 K/uL (0-0.5); Eosinophils % (auto) 0.5 %; Immature Granulocytes # (auto) 0.04 K/uL (0.00-0.02); Immature Granulocytes % (auto) 0.5 %; Lymphocytes # (auto) 0.79 K/uL (1.2-3.4); Lymphocytes % (auto) 9.9 %; Monocytes # (auto) 0.46 K/uL (0.11-0.59); Monocytes % (auto) 5.8 %; Neutrophils % (auto) 83.2 %
[2018-12-14 04:52] LABS: Partial Thromboplastin Time 45.8 Seconds (21.0-31.0)
[2018-12-14 04:55] LABS: BUN Creatinine Ratio 21.1 (10-20); Calcium 7.7 mg/dl (8.5-10.1); Creatinine Clr Calc Pharmacy 37.9 ml/min; Est GFR (African American) 37.6; Est GFR (Non-African American) 32.5; Magnesium 1.9 mg/dl (1.8-2.4); Potassium 3.7 mmol/L (3.5-5.1)
[2018-12-14] MEDS ORDERED: HEPARIN IV BOLUS 3,000 UNITS in SYRINGE 0 ML IV SCH (05:15)
--- NOTE | 2018-12-14 05:21 | Critical Care Progress Note ---
Date of Service December 14, 2018 Assessment & Plan (1) Admitted to intensive care unit: Reason Critically Ill: 62-year-old female with atrial fibrillation with rapid ventricular response, acute encephalopathy. PLAN: Neuro: * Acute encephalopathy: * Metabolic versus alcoholic * Ammonia level wnl * Improving mental status. * Currently not requiring sedation. * Avoid antipsychotics w/ Prolonged QTc Alcohol abuse: * While no reported history of withdrawal; admits to drinking isopropyl alcohol * Osmolar gap negative, no indication fomepizole. Resp: * Initially intubated for airway protection. * Successfully liberated from ventilator on 12/13 to NC only. * Titrate down O2 as tolerated. * Tobacco dependence: * Smoking cessation * Possible infiltrate on chest x-ray versus pulmonary vascular congestion. * This would be a community-acquired pneumonia CV: * Abnormal EKG * Prolonged QTC * Avoid QT prolonging agents * Atrial fibrillation with rapid ventricular response * Emergent cardioversion secondary to hypotension * Currently requiring small doses of Levophed --> gaol to titrate off if tolerated. Fluids/Renal: * Hyponatremia * High gap metabolic acidosis * Likely secondary to uremia * Hypermagnesemia * Acute kidney injury * Nephrology consult * Marisela Busby who convinced the patient to go to the emergency room today reports that patient most likely has [place] phobia and would not be compliant with hemodialysis treatments ID: * UTI * Currently on Rocephin. GI/Nutrition: Elevated alkaline phosphatase -This is consistent with previous elevated alkaline phosphatase May 22, 2018 -Pepcid for GI prophylaxis Heme: * Anemia of chronic disease * DVT prophylaxis: Heparin infusion Endocrine: * ICU hyperglycemia protocol Vascular access: * RIGHT IJ * PIVs * A-Line Code Status: Full code Patient's sister Aby is power of document review attorney. She reportedly lives in [place] and a cell phone number is [phone] I have personally spent 90 minutes of critical care time in the direct management of this patient. This is a life/limb threatening event. This includes time spent evaluating patient, direct bedside care, chart review, placing orders, interpretation of diagnostic studies, discussion with consultants, patient, and/or family members regarding treatment decisions, as well as other required patient management activities. This time is exclusive of all separately billable procedures, and teaching time and separate from and in addition to any other critical care service time. Supervising Physician Co-Signing Physician Notes I have personally evaluated and examined this patient. I agree with assessment and plan of Arline Cabrera PA-C. Patient discussed in multidisciplinary rounds, obtain EEG in her hypoactive delirium state to rule out seizures versus alcohol withdrawal. MRI pending, we will attempt to get this if the patient remains compliant however her mental status is improving she is following simple commands. Decreasing vasoactive medication requirements could represent sepsis she does have a urinary tract infection pansensitive Klebsiella continue Rocephin and doxycycline for empiric respiratory coverage as well as urinary tract infection, this represents a simple urinary tract infection. Creatinine continues to improve continue fluids. Heparin drip to continue for post atrial fibrillation emergent cardioversion. Patient was seen by oral surgery yesterday will obtain another x-ray and for 24 hours to evaluate tooth moving through GI tract. Prolonged QTC repeat EKG today. I have personally spent 40 minutes of critical care time in the direct management of this patient. This is a life/limb threatening event. This includes time spent evaluating patient, direct bedside care, chart review, placing orders, interpretation of diagnostic studies, discussion with consultants, patient, and/or family members regarding treatment decisions, as well as other required patient management activities. This time is exclusive of all separately billable procedures, and teaching time and separate from and in addition to any other critical care service time. Clinical update 1540: EEG removed moderate encephalopathy of nonspecific etiology no seizures, epileptiform discharges. Patient's mental status marginally improved, will likely not be able to remain still for adequate MRI we will continue to observe she is moving all 4 extremities. This encephalopathy does appear to be somewhat better than how she appeared in the emergency room. Subjective No events overnight. Significant improvements on decreasing pressors overnight. Continues with mild agitation. Review of Systems Review of Systems: Unable to obtain second patient's current mental status. Physical Exam Physical Exam: VITAL SIGNS - Vital signs and nursing notes were reviewed. GENERAL - 62-year-old female appearing her stated age who is in no acute distress. SKIN - Without rashes. HEAD - NC/AT. EYES - PERRL with EOMI bilaterally. MOUTH/OROPHARYNX - Without perioral cyanosis. Buccal mucosa pink and dry. Poor dentition noted. LUNGS - Chest wall symmetric without accessory muscle use, intercostals retractions, or central cyanosis. Normal vesicular breath sounds CTA B/L. No wheezes, rales, or rhonchi appreciated. CARDIAC - RRR with S1/S2. No murmur, rubs, or gallops appreciated. ABDOMEN - Abdominal contour flat without pulsations or visible masses. BS normoactive all four quadrants. No tenderness, palpable masses, hepatosplenomegaly, or ascites noted. EXTREMITIES - No clubbing or peripheral cyanosis. No pretibial edema present. NEUROLOGIC - No gross neurological deficits appreciated. Unable to fully assess secondary to current mental status. Results & Data Vital Signs (Past 12 Hours) Vital Signs Temp Pulse Pulse Resp BP BP BP 12/14/18 05:00 96 H 29 H 98/60 L 115/38 L 12/14/18 04:30 89 22 92/55 L 121/34 L 12/14/18 04:00 37.2 C 93 H 27 H 91/70 L 118/34 L 12/14/18 03:30 86 22 93/40 L 103/37 L 12/14/18 03:00 102 H 32 H 84/56 L 118/47 L 12/14/18 02:30 95 H 25 H 101/41 L 120/38 L 12/14/18 02:00 102 H 18 85/45 L 118/44 L 12/14/18 01:30 88 21 97/53 L 126/45 L 12/14/18 01:00 88 23 99/58 L 121/42 L 12/14/18 00:30 85 23 104/67 133/44 L 12/14/18 00:00 37.4 C 87 96 H 21 126/45 L 12/13/18 23:30 89 24 111/69 105/38 L 12/13/18 23:00 88 24 104/40 L 12/13/18 22:30 86 22 103/38 L 12/13/18 22:00 85 22 93/52 L 108/43 L 12/13/18 21:30 90 26 H 108/57 L 94/36 L 12/13/18 21:00 82 24 108/64 110/48 L 12/13/18 20:30 89 27 H 101/45 L 12/13/18 20:00 36.7 C 93 H 88 26 H 115/41 L 12/13/18 19:30 86 26 H 102/46 L 12/13/18 19:00 86 27 H 97/64 L 104/46 L 12/13/18 18:32 89 32 H 98/59 L 12/13/18 18:30 88 32 H 12/13/18 18:04 91 H 12/13/18 17:30 84 Pulse Ox 12/14/18 05:00 95 12/14/18 04:30 99 12/14/18 04:00 97 12/14/18 03:30 98 12/14/18 03:00 95 12/14/18 02:30 96 12/14/18 02:00 97 12/14/18 01:30 99 12/14/18 01:00 99 12/14/18 00:30 99 12/14/18 00:00 97 12/13/18 23:30 97 12/13/18 23:00 97 12/13/18 22:30 94 12/13/18 22:00 97 12/13/18 21:30 96 12/13/18 21:00 98 12/13/18 20:30 96 12/13/18 20:00 96 12/13/18 19:30 97 12/13/18 19:00 97 12/13/18 18:32 97 12/13/18 18:30 97 12/13/18 18:04 96 12/13/18 17:30 97
--- NOTE | 2018-12-14 06:27 | Critical Care Progress Note ---
Date of Service December 14, 2018 Assessment & Plan (1) Admitted to intensive care unit: Savanna Mercado is a 62 y/o female with past medical history of alcoholism, chronic atrial fibrillation requiring long-term anticoagulation, agoraphobia, poor compliance, poor social support, HLD, who was brought to the [facility] ED with confusion, afib with RVR, dyspnea, and agitation. Last known well at neuro baseline 2 days [employer], Monday. Her neuro baseline was reported poor from chronic alcohol abuse with what sounds like Wernicke encephalopathy. Her nicking machine operator is her who also is an alcoholic. reported to have been drinking rubbing alcohol because ran out of EtOH at home. Unknown patient's last drink of EtOH or if drank isopropyl alcohol or other alcohol substitute. Her living conditions at home were found to be poor, reports of animal and human feces on floor. In ED, she required intubation to protect airway. She was in afib w/RVR with rates in the 150s, became hypotensive requiring cardioversion which coverted patient to sinus. Cr was elevated to 4.7; had a metabolic acidosis. CT Head showed NAD, CXR unremarkable. Neuro: - Sedation with propofol 10 mcg/kg/min - Head CT from 12/12 in ED NAD - RASS -2 - Fentanyl citrate drip 20mcg/hr - Alcohol withdrawal assessment score ordered, reportedly sober for past two years, however, alcoholic and was drinking isopropyl alcohol, no osmolar gap yesterday. Cardiac/Vascular: - Prolonged QTC improved from yesterday, 553 today. - Overnight BPs ranging from 80s-110s/40s-50s on Levophed. Pulse mostly in the 70s. - Echocardiogram - LV normal size and wall thickness. LV systolic function is low normal. LV wall motion is normal - EF 50-55% - Normal diastolic function Pulm: - Intubation with mechanical ventilation. - Assist control, RR 22, TV 450 ml/kg, Minute Ventilation 9.9 L/min, PEEP 5cm H2O, FiO2 30, Peak inspriatiory flow 60 L/min - Goal today is extubation if no further issues GI/Nutrition: - Famotidine 20mg IV q12H - Thiamine 100mg IV q 24h; Folic Acid 1mg IV qAM with considerations for poor n utritional status secondary to alcohol abuse. - Discussed probably need for parenteral nutrition, but with goal of extubation today will hold for now. - Hypoalbuminemia at 1.7. Renal/electrolytes: IV fluids - - Parenteral electrolytes with normosol-R @80mls/hr - hypokalemic today at 3.3 and will replete with 60meqs KCl - Adequate urine output showing good perfusion to kidneys. : Acosta cath with good urine return of light yellow colored urine. Endo: No history of diabetes, but will workup for elevated sugars here. A1C = 6.3, showing insulin resistance and since less than 6.5, no diagnosis of diabetes, ICU hyperglycemia protocol normal TSH on labwork Heme: - Iron studies ordered for anemia workup - Hgb 9.9 without signs of acute bleed - Platelets 327 and WNL ID: - Urine culture positive for gram negative bacilli >100,000 CFU. - Antibiotic coverage with Doxycycline 100mg IV BID; Rocephin 2,000 mg IV qday. Will cover urinary tract infection and also provide pulmonary coverage for atypicals/empiric coverage and strep pneumo. - WBC 4.87 WNL - Lactate ordered. Lines: perpheral lines, arterial line intact; will need to place central venous access today for vasoactive medication administration for concerns for sepsis. DVT ppx: SCDs; Heparin 1,100 units/hr Oral/Max surgeon consulted as 3 teeth were damaged during intubation, two were recovered, but one is missing. CXR showed tooth in LUQ below diaphragm suggesting gastric location. Resuscitation status: Full Code. Physical Exam Neck: trachea midline Respiratory: Auscultation: no rales and no wheezes Cardiovascular: Rate/Rhythm: regular rate and regular rhythm Extremities: no pedal edema Gastrointestinal (Abdomen): Inspection/Auscultation: normal bowel sounds; abdomen not distended Percussion/Palpation: abdomen soft Musculoskeletal: Head/Neck/Chest: normocephalic Extremities: no cyanosis Skin: no rashes, warm and dry Results & Data Vital Signs (Past 12 Hours) Vital Signs Temp Pulse Pulse Resp BP BP BP 12/14/18 06:00 86 19 105/44 L 121/42 L 12/14/18 05:30 88 22 81/49 L 119/35 L 12/14/18 05:00 96 H 29 H 98/60 L 115/38 L 12/14/18 04:30 89 22 92/55 L 121/34 L 12/14/18 04:00 37.2 C 93 H 27 H 91/70 L 118/34 L 12/14/18 03:30 86 22 93/40 L 103/37 L 12/14/18 03:00 102 H 32 H 84/56 L 118/47 L 12/14/18 02:30 95 H 25 H 101/41 L 120/38 L 12/14/18 02:00 102 H 18 85/45 L 118/44 L 12/14/18 01:30 88 21 97/53 L 126/45 L 12/14/18 01:00 88 23 99/58 L 121/42 L 12/14/18 00:30 85 23 104/67 133/44 L 12/14/18 00:00 37.4 C 87 96 H 21 126/45 L 12/13/18 23:30 89 24 111/69 105/38 L 12/13/18 23:00 88 24 104/40 L 12/13/18 22:30 86 22 103/38 L 12/13/18 22:00 85 22 93/52 L 108/43 L 12/13/18 21:30 90 26 H 108/57 L 94/36 L 12/13/18 21:00 82 24 108/64 110/48 L 12/13/18 20:30 89 27 H 101/45 L 12/13/18 20:00 36.7 C 93 H 88 26 H 115/41 L 12/13/18 19:30 86 26 H 102/46 L 12/13/18 19:00 86 27 H 97/64 L 104/46 L 12/13/18 18:32 89 32 H 98/59 L 12/13/18 18:30 88 32 H Pulse Ox 12/14/18 06:00 98 12/14/18 05:30 98 12/14/18 05:00 95 12/14/18 04:30 99 12/14/18 04:00 97 12/14/18 03:30 98 12/14/18 03:00 95 12/14/18 02:30 96 12/14/18 02:00 97 12/14/18 01:30 99 12/14/18 01:00 99 12/14/18 00:30 99 12/14/18 00:00 97 12/13/18 23:30 97 12/13/18 23:00 97 12/13/18 22:30 94 12/13/18 22:00 97 12/13/18 21:30 96 12/13/18 21:00 98 12/13/18 20:30 96 12/13/18 20:00 96 12/13/18 19:30 97 12/13/18 19:00 97 12/13/18 18:32 97 12/13/18 18:30 97
[2018-12-14] MEDS: FAMOTIDINE 20 MG in SYRINGE 3 ML IV SCH ×2 (08:35→22:04)
[2018-12-14] MEDS: FOLIC ACID 1 MG in SYRINGE 9.8 ML IV SCH (08:35)
[2018-12-14] MEDS: DOXYCYCLINE HYCLATE 100 MG in DEXTROSE 5% 100 ML IV SCH ×2 (08:35→22:05)
[2018-12-14] MEDS: MAGNESIUM SULFATE / D5W 1 GM/100 ML BAG IV SCH ×4 (08:44→23:36)
--- NOTE | 2018-12-14 08:47 | Pharmacy Report ---
Pharmacy Glycemic Short Note 2 - Date of Service December 14, 2018 - Glycemic Short BSG Results (Last 24 hours): 12/12/18 12/12/18 12/12/18 14:43 14:52 18:02 Glucose POC Glucose 66 L* 120 H POC Glucose (other) 100 H 12/12/18 12/13/18 12/13/18 23:44 05:43 11:55 Glucose POC Glucose 134 H POC Glucose (other) 154 H 106 H 12/13/18 12/14/18 12/14/18 18:28 00:06 04:12 Glucose 98 POC Glucose POC Glucose (other) 130 H 126 H 12/14/18 05:22 Glucose POC Glucose POC Glucose (other) 95 OUTPATIENT ANTIDIABETIC REGIMEN: * N/A * A1c = 6.3% 12/13/18 (consistent with "prediabetes") ASSESSMENT: 12/14/18 * Glycemic control acceptable * Patient extubated yesterday * Remains NPO at this time, but may have swallow eval later today * Pt confused currently 12/13/18 * Patient admitted for agitation, confusion, a fib w/ RVR and SOB - possible toxic alcohol ingestion vs alcohol withdrawal * Pt currently admitted to ICU, on [place] [facility] vent, requiring pressor support (norepi ~0.07mcg/kg/min this AM) and receiving ABX for PNA * BSGs have remained < 180 thus far despite multiple significant stressors * She remains NPO at this time as attempts to wean sedation and possibly liberate from vent will be made today * Thus far she has received 0 insulin PLAN FOR INPATIENT GLYCEMIC CONTROL: * Basal insulin (no change) * none * Bolus insulin (no change) * NovoLog per scale Q6hrs while NPO * Goal Range: Low 140 mg/dL - High 180 mg/dL * Correction Factor: 30 mg/dL/unit * Nutritional / Prandial insulin: none required at this time PLAN FOR DISCHARGE: * give A1c results lifestyle modifications alone would be recommended. given her h/o EtOH and/or isopropyl alcohol ingestion the use of metformin should be discouraged
--- NOTE | 2018-12-14 09:07 | Nephrology Progress Note ---
Date of Service December 14, 2018 Assessment & Plan (1) TERRY (acute kidney injury): -- TERRY consistent with prerenal azotemia improving with IVF -- Non-oliguric -- Metabolic profile otherwise acceptable -- Continue to maintain positive fluid balance -- Normosol @ 80 ml/hr until taking adequate PO -- Monitor metabolic profile + Mg + phos daily -- Medications are appropriate for kidney function -- Will repeat UA/microscopy today -- Hold Aldactone (2) Altered mental status: -- Improving (3) Atrial fibrillation: -- Cardioversion 12/12 Subjective Extubated to CA. Breathing comfortably. No fevers or chills. Savanna reported feeling tired this morning. She knew that she was in the hospital but not sure which hospital. She stated that she was admitted because "I was brought here." Denies pain. Not oriented to date. Review of Systems Review of Systems: All systems reviewed & are unremarkable except as noted in HPI & below Physical Exam Constitutional: + frail appearing; no acute distress Eyes: no scleral abnormality and no corneal abnormality ENMT: Mouth: + poor dentition and + chipped teeth Neck: normal visual inspection and trachea midline Respiratory: no respiratory distress Auscultation: lungs clear to auscultation bilaterally Cardiovascular: Rate/Rhythm: regular rate Heart Sounds: normal S1 and normal S2; no murmur Gastrointestinal (Abdomen): Percussion/Palpation: abdomen soft; abdomen nontender Musculoskeletal: Extremities: no cyanosis and no clubbing Skin: no rashes Neurologic: Motor/Sensory: no tremor and no asterixis Results & Data Vital Signs (Past 12 Hours) Vital Signs Temp Pulse Pulse Resp BP BP BP 12/14/18 07:48 84 12/14/18 07:32 37.4 C 95 H 21 105/49 L 12/14/18 07:30 100 H 24 12/14/18 07:01 91 H 24 87/51 L 12/14/18 07:00 93 H 23 12/14/18 06:45 100 H 26 H 12/14/18 06:30 92 H 24 88/46 L 120/41 L 12/14/18 06:00 86 19 105/44 L 121/42 L 12/14/18 05:30 88 22 81/49 L 119/35 L 12/14/18 05:00 96 H 29 H 98/60 L 115/38 L 12/14/18 04:30 89 22 92/55 L 121/34 L 12/14/18 04:00 37.2 C 93 H 27 H 91/70 L 118/34 L 12/14/18 03:30 86 22 93/40 L 103/37 L 12/14/18 03:00 102 H 32 H 84/56 L 118/47 L 12/14/18 02:30 95 H 25 H 101/41 L 120/38 L 12/14/18 02:00 102 H 18 85/45 L 118/44 L 12/14/18 01:30 88 21 97/53 L 126/45 L 12/14/18 01:00 88 23 99/58 L 121/42 L 12/14/18 00:30 85 23 104/67 133/44 L 12/14/18 00:00 37.4 C 87 96 H 21 126/45 L 12/13/18 23:30 89 24 111/69 105/38 L 12/13/18 23:00 88 24 104/40 L 12/13/18 22:30 86 22 103/38 L 12/13/18 22:00 85 22 93/52 L 108/43 L 12/13/18 21:30 90 26 H 108/57 L 94/36 L Pulse Ox 12/14/18 07:48 12/14/18 07:32 96 12/14/18 07:30 96 12/14/18 07:01 98 12/14/18 07:00 97 12/14/18 06:45 97 12/14/18 06:30 98 12/14/18 06:00 98 12/14/18 05:30 98 12/14/18 05:00 95 12/14/18 04:30 99 12/14/18 04:00 97 12/14/18 03:30 98 12/14/18 03:00 95 12/14/18 02:30 96 12/14/18 02:00 97 12/14/18 01:30 99 12/14/18 01:00 99 12/14/18 00:30 99 12/14/18 00:00 97 12/13/18 23:30 97 12/13/18 23:00 97 12/13/18 22:30 94 12/13/18 22:00 97 12/13/18 21:30 96 Laboratory Results Laboratory Results - last 24 hr 12/12/18 12/12/18 12/12/18 14:43 14:52 17:59 WBC RBC Hgb POC Hgb 11.9 L Hct POC Hct 35 L MCV MCH MCHC RDW Std Deviation RDW Coeff of Hari Plt Count MPV Immature Gran % (Auto) Neut % (Auto) Lymph % (Auto) [place] % (Auto) Eos % (Auto) Baso % (Auto) Immature Gran # (Auto) Neut # (Auto) Lymph # (Auto) [place] # (Auto) Eos # (Auto) Baso # (Auto) Dohle Bodies PT INR APTT PTT Ratio Sample Site L Radial POC pH 7.17 L* POC pCO2 36 POC pO2 171 H POC HCO3 13 L POC Base Excess -15.0 L POC ABG O2 Sat 99.0 H Josr Test Pass O2 Delivery Device Ventilator POC O2 Rate 18 Minute Ventilation 8.9 POC FiO2 50 Tidal Volume 450 PEEP 5 POC Sodium 131 L Sodium POC Potassium 4.8 Potassium POC Chloride 100 L Chloride Carbon Dioxide POC Total CO2 18 L 14 L Anion Gap POC Anion Gap 18.0 POC BUN 63 H BUN Creatinine POC Creatinine 4.3 H Est Cr Clr Drug Dosing Est GFR ( Amer) Est GFR (Non-Af Amer) BUN/Creatinine Ratio Glucose POC Glucose 66 L* POC Glucose (other) 100 H Lactate Calcium POC Ioniz Calcium Jenny 1.09 L Phosphorus Magnesium Iron Ferritin 12/12/18 12/12/18 12/12/18 18:02 21:22 23:44 WBC RBC Hgb POC Hgb Hct POC Hct MCV MCH MCHC RDW Std Deviation RDW Coeff of Hari Plt Count MPV Immature Gran % (Auto) Neut % (Auto) Lymph % (Auto) [place] % (Auto) Eos % (Auto) Baso % (Auto) Immature Gran # (Auto) Neut # (Auto) Lymph # (Auto) [place] # (Auto) Eos # (Auto) Baso # (Auto) Dohle Bodies PT INR APTT PTT Ratio Sample Site R Brachial POC pH 7.36 POC pCO2 23 L POC pO2 149 H POC HCO3 13 L POC Base Excess -13.0 L POC ABG O2 Sat 99.0 H Josr Test NA O2 Delivery Device Ventilator POC O2 Rate 22 Minute Ventilation 11.3 POC FiO2 40 Tidal Volume 450 PEEP 5 POC Sodium Sodium POC Potassium Potassium POC Chloride Chloride Carbon Dioxide POC Total CO2 13 L Anion Gap POC Anion Gap POC BUN BUN Creatinine POC Creatinine Est Cr Clr Drug Dosing Est GFR ( Amer) Est GFR (Non-Af Amer) BUN/Creatinine Ratio Glucose POC Glucose 120 H POC Glucose (other) 154 H Lactate Calcium POC Ioniz Calcium Jenny Phosphorus Magnesium Iron Ferritin 12/13/18 12/13/18 12/13/18 05:43 10:15 10:15 WBC RBC Hgb POC Hgb Hct POC Hct MCV MCH MCHC RDW Std Deviation RDW Coeff of Hari Plt Count MPV Immature Gran % (Auto) Neut % (Auto) Lymph % (Auto) [place] % (Auto) Eos % (Auto) Baso % (Auto) Immature Gran # (Auto) Neut # (Auto) Lymph # (Auto) [place] # (Auto) Eos # (Auto) Baso # (Auto) Dohle Bodies PT INR APTT PTT Ratio Sample Site POC pH POC pCO2 POC pO2 POC HCO3 POC Base Excess POC ABG O2 Sat Josr Test O2 Delivery Device POC O2 Rate Minute Ventilation POC FiO2 Tidal Volume PEEP POC Sodium Sodium POC Potassium Potassium POC Chloride Chloride Carbon Dioxide POC Total CO2 Anion Gap POC Anion Gap POC BUN BUN Creatinine POC Creatinine Est Cr Clr Drug Dosing Est GFR ( Amer) Est GFR (Non-Af Amer) BUN/Creatinine Ratio Glucose POC Glucose POC Glucose (other) 106 H Lactate 0.9 Calcium POC Ioniz Calcium Jenny Phosphorus Magnesium Iron 44 Ferritin 470.0 H 12/13/18 12/13/18 12/13/18 11:55 18:28 18:33 WBC RBC Hgb POC Hgb Hct POC Hct MCV MCH MCHC RDW Std Deviation RDW Coeff of Hari Plt Count MPV Immature Gran % (Auto) Neut % (Auto) Lymph % (Auto) [place] % (Auto) Eos % (Auto) Baso % (Auto) Immature Gran # (Auto) Neut # (Auto) Lymph # (Auto) [place] # (Auto) Eos # (Auto) Baso # (Auto) Dohle Bodies PT INR APTT PTT Ratio Sample Site Art Line POC pH 7.32 L POC pCO2 32 L POC pO2 92 POC HCO3 17 L POC Base Excess -10.0 L POC ABG O2 Sat 97.0 H Josr Test Pass O2 Delivery Device POC O2 Rate Minute Ventilation POC FiO2 Tidal Volume PEEP POC Sodium Sodium POC Potassium Potassium POC Chloride Chloride Carbon Dioxide POC Total CO2 17 L Anion Gap POC Anion Gap POC BUN BUN Creatinine POC Creatinine Est Cr Clr Drug Dosing Est GFR ( Amer) Est GFR (Non-Af Amer) BUN/Creatinine Ratio Glucose POC Glucose 134 H POC Glucose (other) 130 H Lactate Calcium POC Ioniz Calcium Jenny Phosphorus Magnesium Iron Ferritin 12/14/18 12/14/18 12/14/18 00:06 04:12 04:12 WBC 7.94 RBC 3.25 L Hgb 9.5 L POC Hgb Hct 27.8 L POC Hct MCV 85.5 MCH 29.2 MCHC 34.2 RDW Std Deviation 48.4 H RDW Coeff of Hari 15.4 H Plt Count 267 MPV 9.1 Immature Gran % (Auto) 0.5 Neut % (Auto) 83.2 Lymph % (Auto) 9.9 [place] % (Auto) 5.8 Eos % (Auto) 0.5 Baso % (Auto) 0.1 Immature Gran # (Auto) 0.04 H Neut # (Auto) 6.60 H Lymph # (Auto) 0.79 L [place] # (Auto) 0.46 Eos # (Auto) 0.04 Baso # (Auto) 0.01 Dohle Bodies 1+ PT 12.3 H INR 1.2 H APTT 45.8 H* PTT Ratio 1.7 Sample Site POC pH POC pCO2 POC pO2 POC HCO3 POC Base Excess POC ABG O2 Sat Josr Test O2 Delivery Device POC O2 Rate Minute Ventilation POC FiO2 Tidal Volume PEEP POC Sodium Sodium POC Potassium Potassium POC Chloride Chloride Carbon Dioxide POC Total CO2 Anion Gap POC Anion Gap POC BUN BUN Creatinine POC Creatinine Est Cr Clr Drug Dosing Est GFR ( Amer) Est GFR (Non-Af Amer) BUN/Creatinine Ratio Glucose POC Glucose POC Glucose (other) 126 H Lactate Calcium POC Ioniz Calcium Jenny Phosphorus Magnesium Iron Ferritin 12/14/18 12/14/18 12/14/18 04:12 04:12 05:22 WBC RBC Hgb POC Hgb Hct POC Hct MCV MCH MCHC RDW Std Deviation RDW Coeff of Hari Plt Count MPV Immature Gran % (Auto) Neut % (Auto) Lymph % (Auto) [place] % (Auto) Eos % (Auto) Baso % (Auto) Immature Gran # (Auto) Neut # (Auto) Lymph # (Auto) [place] # (Auto) Eos # (Auto) Baso # (Auto) Dohle Bodies PT INR APTT PTT Ratio Sample Site POC pH POC pCO2 POC pO2 POC HCO3 POC Base Excess POC ABG O2 Sat Josr Test O2 Delivery Device POC O2 Rate Minute Ventilation POC FiO2 Tidal Volume PEEP POC Sodium Sodium 136 POC Potassium Potassium 3.7 POC Chloride Chloride 110 H Carbon Dioxide 20 L POC Total CO2 Anion Gap 6.0 POC Anion Gap POC BUN BUN 35 H Creatinine 1.65 H D POC Creatinine Est Cr Clr Drug Dosing 37.9 Est GFR ( Amer) 37.6 Est GFR (Non-Af Amer) 32.5 BUN/Creatinine Ratio 21.1 H Glucose 98 POC Glucose POC Glucose (other) 95 Lactate 0.8 Calcium 7.7 L POC Ioniz Calcium Jenny Phosphorus 3.0 Magnesium 1.9 Iron Ferritin (1) Altered mental status Altered mental status type: unspecified Qualified Code(s): R41.82 - Altered mental status, unspecified (2) Atrial fibrillation Atrial fibrillation type: unspecified Qualified Code(s): I48.91 - Unspecified atrial fibrillation
[2018-12-14] MEDS: POTASSIUM CHLORIDE / WTR 20 MEQ/100 ML PLCT IV SCH ×3 (09:26→13:03)
[2018-12-14] MEDS: NORMOSOL-R 1,000 ML IV SCH ×2 (09:26→22:05)
--- NOTE | 2018-12-14 09:43 | Procedure Note ---
EEG Procedure Note Date of Service December 14, 2018 Start / End Times Start Time: 7:48 AM End Time: 8:08 AM Referring Physician Juan Delvalle History This is a 62-year-old female with acute delirium. EEG for further evaluation of possible seizure etiology and to rule out subclinical seizures. Home Medication List Home Medications Medication Instructions Recorded Confirmed Type aspirin 81 mg PO DAILY 12/12/18 12/12/18 History atorvastatin 40 mg PO DAILY 12/12/18 12/12/18 History calcium carbonate [Tums] 200 mg PO DIRECTED PRN 12/12/18 12/12/18 History carvedilol 3.125 mg PO QAM 12/12/18 12/12/18 History carvedilol 12.5 mg PO BIDM 12/12/18 12/12/18 History escitalopram oxalate 10 mg PO DAILY 12/12/18 12/12/18 History ferrous sulfate 325 mg PO BID 12/12/18 12/12/18 History fluticasone propionate 2 spray INTRANASAL DAILY 12/12/18 12/12/18 History folic acid 1 mg PO DAILY 12/12/18 12/12/18 History magnesium oxide 400 mg PO BID 12/12/18 12/12/18 History multivitamin,me-ppbe-pfoodgfn 1 tab PO DAILY 12/12/18 12/12/18 History [Therems-M] omeprazole 20 mg PO DAILY 12/12/18 12/12/18 History rivaroxaban [Xarelto] 15 mg PO PM 12/12/18 12/12/18 History spironolactone 25 mg PO DAILY 12/12/18 12/12/18 History thiamine HCl (vitamin B1) [Vitamin 50 mg PO BID 12/12/18 12/12/18 History B-1] Inpatient Medication List Aspirin (Aspirin Chew) 81 mg PO DAILY [facility] Stop: 01/12/19 08:59 Last Admin: 12/13/18 08:56 Dose: 81 mg Documented by: [id number] Atorvastatin Calcium (Lipitor) 40 mg PO QAM [facility] Stop: 01/12/19 08:59 Last Admin: 12/13/18 08:56 Dose: 40 mg Documented by: [id number] Parenteral Electrolytes (Normosol-R) 1,000 mls @ 80 mls/hr IV .[id number] [facility] Stop: 01/11/19 17:28 Last Admin: 12/14/18 09:26 Dose: 80 mls/hr Documented by: [id number] Infusion: 12/14/18 08:57 Dose: 80 mls/hr Documented by: [id number] Infusion: 12/14/18 07:03 Dose: 80 mls/hr Documented by: [id number] Admin: 12/13/18 20:26 Dose: 80 mls/hr Documented by: [id number] Infusion: 12/13/18 20:26 Dose: 80 mls/hr Documented by: [id number] Infusion: 12/13/18 19:10 Dose: 80 mls/hr Documented by: [id number] Admin: 12/13/18 09:02 Dose: 80 mls/hr Documented by: [id number] Infusion: 12/13/18 09:01 Dose: 0 mls/hr Documented by: [id number] Infusion: 12/13/18 07:13 Dose: 80 mls/hr Documented by: [id number] Admin: 12/13/18 05:51 Dose: Not Given Documented by: [id number] Infusion: 12/12/18 22:58 Dose: 80 mls/hr Documented by: [id number] Admin: 12/12/18 20:30 Dose: 80 mls/hr Documented by: [id number] Famotidine 20 mg/ Syringe 5 mls @ 2.5 mls/min IV Q12H [facility] Stop: 01/11/19 19:59 Last Admin: 12/14/18 08:35 Dose: 2.5 mls/min Documented by: [id number] Admin: 12/13/18 20:26 Dose: 2.5 mls/min Documented by: [id number] Admin: 12/13/18 08:56 Dose: 2.5 mls/min Documented by: [id number] Admin: 12/12/18 20:50 Dose: 2.5 mls/min Documented by: [id number] Folic Acid 1 mg/ Syringe 10 mls @ 5 mls/min IV QAM [facility] Stop: 01/12/19 08:59 Last Admin: 12/14/18 08:35 Dose: 5 mls/min Documented by: [id number] Admin: 12/13/18 08:55 Dose: 5 mls/min Documented by: [id number] Thiamine HCl 100 mg/ Syringe 10 mls @ 2 mls/hr IV Q24H [facility] Stop: 01/12/19 17:59 Last Admin: 12/13/18 18:37 Dose: 2 mls/hr Documented by: [id number] Norepinephrine Bitartrate 8 mg (/ Dextrose) 508 mls @ 0 mls/hr IV .Q0M [facility]; Protocol Stop: 01/11/19 17:44 Last Titration: 12/14/18 07:03 Dose: 0 mcg/kg/min, 0 mls/hr Documented by: [id number] Cosigned by: [id number] Titration: 12/14/18 04:59 Dose: 0.01 mcg/kg/min, 3.2 mls/hr Documented by: [id number] Titration: 12/14/18 02:03 Dose: 0.02 mcg/kg/min, 6.4 mls/hr Documented by: [id number] Titration: 12/14/18 00:53 Dose: 0.04 mcg/kg/min, 12.7 mls/hr Documented by: [id number] Titration: 12/14/18 00:10 Dose: 0.06 mcg/kg/min, 19.1 mls/hr Documented by: [id number] Titration: 12/13/18 21:48 Dose: 0.08 mcg/kg/min, 25.4 mls/hr Documented by: [id number] Titration: 12/13/18 21:10 Dose: 0.09 mcg/kg/min, 28.6 mls/hr Documented by: [id number] Titration: 12/13/18 19:10 Dose: 0.1 mcg/kg/min, 31.8 mls/hr Documented by: [id number] Cosigned by: [id number] Titration: 12/13/18 18:34 Dose: 0.1 mcg/kg/min, 31.8 mls/hr Documented by: [id number] Titration: 12/13/18 17:41 Dose: 0.09 mcg/kg/min, 28.6 mls/hr Documented by: [id number] Titration: 12/13/18 17:21 Dose: 0.11 mcg/kg/min, 35 mls/hr Documented by: [id number] Admin: 12/13/18 17:00 Dose: 0.13 mcg/kg/min, 41.3 mls/hr Documented by: [id number] Cosigned by: [id number] Titration: 12/13/18 16:52 Dose: 0.13 mcg/kg/min, 41.3 mls/hr Documented by: [id number] Cosigned by: [id number] Titration: 12/13/18 15:30 Dose: 0.13 mcg/kg/min, 41.3 mls/hr Documented by: [id number] Titration: 12/13/18 12:28 Dose: 0.11 mcg/kg/min, 35 mls/hr Documented by: [id number] Titration: 12/13/18 12:09 Dose: 0.1 mcg/kg/min, 31.8 mls/hr Documented by: [id number] Titration: 12/13/18 11:15 Dose: 0.09 mcg/kg/min, 28.6 mls/hr Documented by: [id number] Titration: 12/13/18 09:05 Dose: 0.07 mcg/kg/min, 22.2 mls/hr Documented by: [id number] Titration: 12/13/18 07:13 Dose: 0.05 mcg/kg/min, 15.9 mls/hr Documented by: [id number] Cosigned by: [id number] Titration: 12/13/18 06:38 Dose: 0.05 mcg/kg/min, 15.9 mls/hr Documented by: [id number] Titration: 12/13/18 06:03 Dose: 0.07 mcg/kg/min, 22.2 mls/hr Documented by: [id number] Titration: 12/13/18 05:35 Dose: 0.03 mcg/kg/min, 9.5 mls/hr Documented by: [id number] Titration: 12/13/18 04:22 Dose: 0.04 mcg/kg/min, 12.7 mls/hr Documented by: [id number] Titration: 12/13/18 00:20 Dose: 0.05 mcg/kg/min, 15.9 mls/hr Documented by: [id number] Titration: 12/12/18 22:58 Dose: 0.04 mcg/kg/min, 12.7 mls/hr Documented by: [id number] Titration: 12/12/18 22:14 Dose: 0.05 mcg/kg/min, 15.9 mls/hr Documented by: [id number] Titration: 12/12/18 20:10 Dose: 0.06 mcg/kg/min, 19.1 mls/hr Documented by: [id number] Titration: 12/12/18 19:10 Dose: 0.08 mcg/kg/min, 25.4 mls/hr Documented by: [id number] Cosigned by: [id number] Admin: 12/12/18 18:09 Dose: 0.1 mcg/kg/min, 31.8 mls/hr Documented by: [id number] Cosigned by: [id number] Heparin Sodium/Dextrose (Heparin Sodium/Dextrose) 25,000 units in 500 mls @ 25 mls/hr IV .Q20H [facility]; Protocol Stop: 01/11/19 18:29 Last Titration: 12/14/18 07:03 Dose: 1,250 units/hr, 25 mls/hr Documented by: [id number] Cosigned by: [id number] Titration: 12/14/18 05:00 Dose: 1,250 units/hr, 25 mls/hr Documented by: [id number] Cosigned by: [id number] Titration: 12/13/18 19:10 Dose: 1,100 units/hr, 22 mls/hr Documented by: [id number] Cosigned by: [id number] Admin: 12/13/18 16:30 Dose: 1,100 units/hr, 22 mls/hr Documented by: [id number] Cosigned by: [id number] Titration: 12/13/18 16:30 Dose: 1,100 units/hr, 22 mls/hr Documented by: [id number] Cosigned by: [id number] Titration: 12/13/18 09:00 Dose: 1,100 units/hr, 22 mls/hr Documented by: [id number] Cosigned by: [id number] Titration: 12/13/18 07:13 Dose: 1,100 units/hr, 22 mls/hr Documented by: [id number] Cosigned by: [id number] Titration: 12/13/18 01:54 Dose: 1,100 units/hr, 22 mls/hr Documented by: [id number] Cosigned by: [id number] Titration: 12/13/18 00:52 Dose: 0 units/hr, 0 mls/hr Documented by: [id number] Cosigned by: [id number] Titration: 12/12/18 19:10 Dose: 1,250 units/hr, 25 mls/hr Documented by: [id number] Cosigned by: [id number] Admin: 12/12/18 18:33 Dose: 1,250 units/hr, 25 mls/hr Documented by: [id number] Cosigned by: [id number] Doxycycline Hyclate 100 mg/ (Dextrose) 110 mls @ 50 mls/hr IV BID [facility] Stop: 12/20/18 20:59 Last Admin: 12/14/18 08:35 Dose: 50 mls/hr Documented by: [id number] Infusion: 12/13/18 22:38 Dose: 0 mls/hr Documented by: [id number] Admin: 12/13/18 20:26 Dose: 50 mls/hr Documented by: [id number] Ceftriaxone Sodium 2,000 mg/ (Dextrose) 50 mls @ 100 mls/hr IV Q24H [facility] Stop: 12/20/18 09:59 Last Infusion: 12/13/18 11:20 Dose: 0 mls/hr Documented by: [id number] Admin: 12/13/18 10:47 Dose: 100 mls/hr Documented by: [id number] Potassium Chloride (K Edil / Wtr) 20 meq in 100 mls @ 50 mls/hr IV TODAY@0900,1100,1300 [facility] Stop: 12/14/18 19:00 Last Admin: 12/14/18 09:26 Dose: 50 mls/hr Documented by: [id number] Magnesium Sulfate/Dextrose (Magnesium Sulfate / D5w) 1 gm in 100 mls @ 100 mls/hr IV 0900,1000,2000,2100 [facility] Stop: 12/14/18 23:50 Last Admin: 12/14/18 08:44 Dose: 100 mls/hr Documented by: [id number] Insulin Aspart (Novolog Flexpen) 0 units SC Q6 [facility] Stop: 01/11/19 18:59 Last Admin: 12/14/18 05:23 Dose: Not Given Documented by: [id number] Cosigned by: [id number] Admin: 12/14/18 00:10 Dose: Not Given Documented by: [id number] Cosigned by: [id number] Admin: 12/13/18 18:33 Dose: Not Given Documented by: [id number] Cosigned by: [id number] Admin: 12/13/18 14:10 Dose: Not Given Documented by: [id number] Cosigned by: [id number] Admin: 12/13/18 05:51 Dose: Not Given Documented by: [id number] Cosigned by: [id number] Admin: 12/12/18 23:47 Dose: Not Given Documented by: [id number] Cosigned by: [id number] Admin: 12/12/18 18:37 Dose: Not Given Documented by: [id number] Cosigned by: [id number] Discontinued Medications Heparin Sodium/Dextrose () 1 ea IV NOW STA; Protocol Stop: 12/12/18 17:30 Last Admin: 12/12/18 18:22 Dose: Not Given Documented by: [id number] Sodium Chloride (Nss 1000ml) 1,000 mls @ 999 mls/hr IV .Q1H1M ONE Stop: 12/12/18 15:43 Last Infusion: 12/12/18 16:56 Dose: 0 mls/hr Documented by: [id number] Admin: 12/12/18 14:55 Dose: 999 mls/hr Documented by: [id number] Lorazepam (Ativan) 1 mg in 2 mls @ 2 mls/min IV NOW STA Stop: 12/12/18 14:44 Last Admin: 12/12/18 14:45 Dose: Not Given Documented by: [id number] Thiamine HCl 500 mg/ Sodium (Chloride) 105 mls @ 210 mls/hr IV ONE ONE Stop: 12/12/18 15:29 Last Infusion: 12/12/18 16:23 Dose: 0 mls/hr Documented by: [id number] Admin: 12/12/18 15:53 Dose: 210 mls/hr Documented by: [id number] Multivitamins 10 ml/ Thiamine HCl 100 mg/ Folic Acid 1 mg/Sodium Chloride 1,011.2 mls @ 1,011.2 mls/hr IV .Q1H [facility] Stop: 12/12/18 15:59 Last Infusion: 12/12/18 16:54 Dose: 0 mls/hr Documented by: [id number] Admin: 12/12/18 15:54 Dose: 1,011.2 mls/hr Documented by: [id number] Dextrose/Sodium Chloride (D5w And Nss) 1,000 mls @ 999 mls/hr IV .Q1H1M [facility] Stop: 12/12/18 17:00 Last Admin: 12/12/18 16:11 Dose: Not Given Documented by: [id number] Lorazepam (Ativan) 1 mg in 2 mls @ 2 mls/min IV NOW STA Stop: 12/12/18 15:11 Last Admin: 12/12/18 15:54 Dose: 2 mls/min Documented by: [id number] Propofol (Diprivan) 1,000 mg in 100 mls @ 2.502 mls/hr IV .Q24H [facility]; Protocol Stop: 12/15/18 15:59 Last Titration: 12/12/18 18:17 Dose: 0 mcg/kg/min, 0 mls/hr Documented by: [id number] Admin: 12/12/18 16:01 Dose: 5 mcg/kg/min, 2.5 mls/hr Documented by: [id number] Cosigned by: [id number] Fentanyl Citrate (Fentanyl Drip) 1,250 mcg in 250 mls @ 0 mls/hr IV .Q0M [facility]; Protocol Stop: 12/26/18 16:14 Last Titration: 12/13/18 18:35 Dose: 0 mcg/hr, 0 mls/hr Documented by: [id number] Admin: 12/13/18 16:59 Dose: Not Given Documented by: [id number] Titration: 12/13/18 16:30 Dose: 0 mcg/hr, 0 mls/hr Documented by: [id number] Titration: 12/13/18 08:56 Dose: 20 mcg/hr, 4 mls/hr Documented by: [id number] Titration: 12/13/18 07:13 Dose: 25 mcg/hr, 5 mls/hr Documented by: [id number] Cosigned by: [id number] Titration: 12/13/18 06:30 Dose: 25 mcg/hr, 5 mls/hr Documented by: [id number] Titration: 12/13/18 06:03 Dose: 50 mcg/hr, 10 mls/hr Documented by: [id number] Titration: 12/12/18 19:10 Dose: 25 mcg/hr, 5 mls/hr Documented by: [id number] Cosigned by: [id number] Admin: 12/12/18 16:35 Dose: 25 mcg/hr, 5 mls/hr Documented by: [id number] Cosigned by: [id number] Propofol (Diprivan) 1,000 mg in 100 mls @ 0 mls/hr IV .Q0M [facility]; Protocol Stop: 12/15/18 17:28 Last Titration: 12/13/18 18:35 Dose: 0 mcg/kg/min, 0 mls/hr Documented by: [id number] Titration: 12/13/18 16:30 Dose: 0 mcg/kg/min, 0 mls/hr Documented by: [id number] Titration: 12/13/18 16:00 Dose: 5 mcg/kg/min, 2.5 mls/hr Documented by: [id number] Admin: 12/13/18 12:26 Dose: 10 mcg/kg/min, 5 mls/hr Documented by: [id number] Cosigned by: [id number] Titration: 12/13/18 12:26 Dose: 10 mcg/kg/min, 5 mls/hr Documented by: [id number] Cosigned by: [id number] Titration: 12/13/18 07:13 Dose: 10 mcg/kg/min, 5 mls/hr Documented by: [id number] Cosigned by: [id number] Titration: 12/13/18 06:30 Dose: 10 mcg/kg/min, 5 mls/hr Documented by: [id number] Titration: 12/13/18 06:03 Dose: 20 mcg/kg/min, 10 mls/hr Documented by: [id number] Titration: 12/12/18 19:10 Dose: 10 mcg/kg/min, 5 mls/hr Documented by: [id number] Cosigned by: [id number] Admin: 12/12/18 18:17 Dose: 10 mcg/kg/min, 5 mls/hr Documented by: [id number] Cosigned by: [id number] Sodium Chloride (Nss 1000ml) 1,000 mls @ 999 mls/hr IV .Q1H1M ONE Stop: 12/12/18 18:40 Last Infusion: 12/12/18 19:17 Dose: 0 mls/hr Documented by: [id number] Admin: 12/12/18 18:16 Dose: 999 mls/hr Documented by: [id number] Sodium Chloride (Nss 1000ml) 1,000 mls @ 999 mls/hr IV .Q1H1M ONE Stop: 12/12/18 18:41 Last Infusion: 12/12/18 20:08 Dose: 0 mls/hr Documented by: [id number] Admin: 12/12/18 19:07 Dose: 999 mls/hr Documented by: [id number] Heparin Sodium (Porcine) 5,000 (units/ Syringe) 5 mls @ 10 mls/min IV 1830 [facility] Stop: 12/12/18 18:31 Last Admin: 12/12/18 18:33 Dose: 10 mls/min Documented by: [id number] Cosigned by: [id number] Fomepizole 1.24 gm/ Dextrose 101.24 mls @ 200 mls/hr IV 1845 ONE Stop: 12/12/18 19:15 Last Infusion: 12/12/18 20:38 Dose: 0 mls/hr Documented by: [id number] Admin: 12/12/18 20:07 Dose: 200 mls/hr Documented by: [id number] Fomepizole 0.83 gm/ Dextrose 100.83 mls @ 200 mls/hr IV Q12H [facility] Stop: 12/14/18 19:31 Last Infusion: 12/13/18 08:57 Dose: 0 mls/hr Documented by: [id number] Admin: 12/13/18 07:48 Dose: 200 mls/hr Documented by: [id number] Ceftriaxone Sodium 1,000 mg/ (Dextrose) 50 mls @ 100 mls/hr IV Q24H [facility]; Protocol Stop: 12/14/18 20:59 Last Infusion: 12/12/18 21:59 Dose: 0 mls/hr Documented by: [id number] Admin: 12/12/18 21:29 Dose: 100 mls/hr Documented by: [id number] Doxycycline Hyclate 200 mg/ (Dextrose) 120 mls @ 50 mls/hr IV NOW STA Stop: 12/12/18 23:16 Last Infusion: 12/13/18 00:38 Dose: 0 mls/hr Documented by: [id number] Admin: 12/12/18 22:14 Dose: 50 mls/hr Documented by: [id number] Potassium Chloride (K Edil / Wtr) 10 meq in 100 mls @ 100 mls/hr IV TODAY@1000,1100 [facility] Stop: 12/13/18 16:00 Last Infusion: 12/13/18 12:50 Dose: 0 mls/hr Documented by: [id number] Admin: 12/13/18 11:50 Dose: 100 mls/hr Documented by: [id number] Infusion: 12/13/18 11:49 Dose: 0 mls/hr Documented by: [id number] Admin: 12/13/18 10:47 Dose: 100 mls/hr Documented by: [id number] Potassium Chloride (K Edil / Wtr) 20 meq in 100 mls @ 50 mls/hr IV 1200,1400 [facility] Stop: 12/13/18 19:00 Last Infusion: 12/13/18 20:32 Dose: 0 mls/hr Documented by: [id number] Admin: 12/13/18 18:32 Dose: 50 mls/hr Documented by: [id number] Infusion: 12/13/18 18:32 Dose: 50 mls/hr Documented by: [id number] Admin: 12/13/18 16:55 Dose: 50 mls/hr Documented by: [id number] Heparin Sodium (Porcine) 3,000 (units/ Syringe) 3 mls @ 1 mls/min IV TODAY@0515 [facility] Stop: 12/14/18 05:45 Last Admin: 12/14/18 05:23 Dose: 1 mls/min Documented by: [id number] Cosigned by: [id number] Lorazepam (Ativan) Confirm Administered Dose 2 mg .ROUTE .STK-MED ONE Stop: 12/12/18 14:39 Last Admin: 12/12/18 14:45 Dose: 1 mg Documented by: [id number] Miscellaneous () Confirm Administered Dose 1 ea .ROUTE .STK-MED ONE Stop: 12/12/18 15:28 Last Admin: 12/12/18 16:12 Dose: 1 ea Documented by: [id number] Propofol (Diprivan) Confirm Administered Dose 1,000 mg IV .STK-MED ONE Stop: 12/12/18 16:00 Last Admin: 12/12/18 16:12 Dose: Not Given Documented by: [id number] Sodium Bicarbonate (Sodium Bicarbonate 8.4%) 50 meq IV NOW STA Stop: 12/12/18 18:01 Last Admin: 12/12/18 18:09 Dose: 50 meq Documented by: [id number] Sodium Bicarbonate (Sodium Bicarbonate 8.4%) 50 meq IV NOW STA Stop: 12/12/18 18:02 Last Admin: 12/12/18 18:10 Dose: 50 meq Documented by: [id number] Description This is a 21 electrode EEG with a single channel dedicated to limited EKG. The electrodes were placed in accordance with the International 10-20 system. There was intermittent sharp artifact noted At the start of this recording patient was in reported altered mental status. Background was poorly organized with a poorly formed anterior posterior gradient. Background was composed of predominantly moderate amplitude 5 Hz theta frequency with intermixed delta and alpha frequencies. There was no state changes or sleep transients. Photic stimulation at various frequencies did not produce any abnormalities. Hyperventilation was not done. Interpretation This is an abnormal routine EEG secondary to moderate background disorganization and slowing. There was no electrographic seizures or epileptiform discharges. Clinical Correlation This EEG indicates moderate encephalopathy of nonspecific etiology.
[2018-12-14] MEDS: cefTRIAXone SODIUM 2,000 MG in DEXTROSE 5% 50 ML IV SCH (10:00)
[2018-12-14 10:34] LABS: Appearance Urine Clear (Clear); Bacteria Urine Automated Negative (Negative); Bilirubin Urine Negative (Negative); Blood Urine Trace (Negative); Color Urine Yellow; Epithelial Cell Urine Auto >30 /lpf (0-5); Glucose Urine UA Negative (Negative); Ketones Urine Negative (Negative); Leukocyte Esterase Urine Negative (Negative); Nitrite Urine Negative (Negative); Protein Urine 1+ (Negative); Specific Gravity Urine 1.016 (1.000-1.030); Urobilinogen Urine Negative (Negative)
[2018-12-14] MEDS ORDERED: FIBERSOURCE HN 1.2 CAL 1000 ML BAG PO SCH (11:00)
--- NOTE | 2018-12-14 11:15 | Palliative Care Consultation ---
Date of Consultation December 14, 2018 Assessment & Plan (1) Code status needs review: -62 year old female patient with PMH previous alcohol dependence, GERD, acute liver injury, and reported medical non-compliance, presented to the hospital a few days ago at the request of her niece due to increased exertional dyspnea. In ED, patient found to be in rapid afib, was cardioverted to NSR. Patient also with acute kidney injury, acute metabolic encephalopathy, and sepsis possibly 2/2 UTI, so she was intubated for safety and admitted to the ICU. Patient required pressors for blood pressure support as well. Creatinine was 4.27 on admission 2/2 severe dehydration, down to 1.65 today. Per patient's family, there is a long-standing history of alcohol abuse, poor hygiene, and medical non-compliance. Patient was last in the hospital in the summer of 2017 with acute kidney injury. Patient was extubated yesterday evening, but remains in ICU. Pressors were discontinued this morning. Patient's sister, Aby, is patient's POA. On previous admissions, patient chose to be DNR. There was also question of whether or not patient would ever want dialysis as she had an extremely high creatinine upon arrival. Therefore, palliative care was consulted to assist with goals of care and discuss code status. -Met with patient in room 107 this morning. She is awake and alert. Knew she was in the hospital but told me she didnt' know what town we were in. She told me she lived in [place], [place], which is actually where she grew up as a child. Patient told me her sister Aby could make medical decisions for her if she was unable, and gave me permission to call her. Patient was not able to have a meaningful discussion about goals of care with me. -Called Aby, who lives near [place]. Pat confirmed that patient has trouble caring for herself properly, and this has been an ongoing issue. Aby said the pa tient told her she wasn't feeling well and had diarrhea for about a week prior to arrival, so Aby feels this could have contributed to the dehydration and TERRY. -Discussed code status. Aby states that patient has always been consistent on wanting to be DNR in event of her heart stopping. However, she would be okay with short-term intubation if needed and is okay with cardioversion if needed. So, will change patient to DNR in even of cardiac arrest. -Aby plans to come to [place], maybe next week, when patient is more lucid to discuss further plans with her. For now, continue with full treatment. -Palliative care will follow as needed throughout hospitalization. (2) TERRY (acute kidney injury): (3) Altered mental status: -- Improving Altered mental status type: unspecified Qualified Code(s): R41.82 - Altered mental status, unspecified (4) Atrial fibrillation: -- Cardioversion 12/12 Atrial fibrillation type: unspecified Qualified Code(s): I48.91 - Unspecified atrial fibrillation History of Present Illness Attending Physician: Reyes Allen DO History of Present Illness This 62 year old female patient with PMH previous alcohol dependence, GERD, acute liver injury, and reported medical non-compliance, presented to the hospital a few days ago at the request of her niece due to increased exertional dyspnea. In ED, patient found to be in rapid afib, was cardioverted to NSR. Patient also with acute kidney injury, acute metabolic encephalopathy, and sepsis possibly 2/2 UTI, so she was intubated for safety and admitted to the ICU. Patient required pressors for blood pressure support as well. Creatinine was 4.27 on admission 2/2 severe dehydration, down to 1.65 today. Per patient's family, there is a long-standing history of alcohol abuse, poor hygiene, and medical non-compliance. Patient was last in the hospital in the summer of 2017 with acute kidney injury. Patient was extubated yesterday evening, but remains in ICU. Pressors were discontinued this morning. Patient's sister, Aby, is patient's POA. On previous admissions, patient chose to be DNR. There was also question of whether or not patient would ever want dialysis as she had an extremely high creatinine upon arrival. Therefore, palliative care was consulted to assist with goals of care and discuss code status. Thank you kindly for this consult. I will follow as needed. Allergies Allergy/AdvReac Type Severity Reaction Status Date / Time No Known Allergies Allergy Verified 12/12/18 17:42 Home Medications Home Medications Medication Instructions Recorded Confirmed Type aspirin 81 mg PO DAILY 12/12/18 12/12/18 History atorvastatin 40 mg PO DAILY 12/12/18 12/12/18 History calcium carbonate [Tums] 200 mg PO DIRECTED PRN 12/12/18 12/12/18 History carvedilol 3.125 mg PO QAM 12/12/18 12/12/18 History carvedilol 12.5 mg PO BIDM 12/12/18 12/12/18 History escitalopram oxalate 10 mg PO DAILY 12/12/18 12/12/18 History ferrous sulfate 325 mg PO BID 12/12/18 12/12/18 History fluticasone propionate 2 spray INTRANASAL DAILY 12/12/18 12/12/18 History folic acid 1 mg PO DAILY 12/12/18 12/12/18 History magnesium oxide 400 mg PO BID 12/12/18 12/12/18 History multivitamin,nr-vetn-olzdarva 1 tab PO DAILY 12/12/18 12/12/18 History [Therems-M] omeprazole 20 mg PO DAILY 12/12/18 12/12/18 History rivaroxaban [Xarelto] 15 mg PO PM 12/12/18 12/12/18 History spironolactone 25 mg PO DAILY 12/12/18 12/12/18 History thiamine HCl (vitamin B1) [Vitamin 50 mg PO BID 12/12/18 12/12/18 History B-1] Patient History Medical History Trimalleolar fracture of left ankle (Resolved) Dislocation of ankle joint (Resolved) Trimalleolar fracture of right ankle (Resolved) GERD (gastroesophageal reflux disease) (Chronic) Hyperlipidemia (Chronic) 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) Alcohol dependence (Chronic) Acute liver disease (Chronic) Hypotension (Resolved) Rapid atrial fibrillation (Chronic) High anion gap metabolic acidosis Family History Other Diabetes Hypertension Social History Preferred Language: Greek Communication Ability: Unable Medical Orderly Required: Yes Beliefs That Will Affect Care: None marital status: Current Living Situation: Spouse Other Information That Helps Us Care for You: No Feels Safe at Home: Declines to Answer Smoking Status: Current every day smoker Hx Alcohol Use: Yes (Per Report, patient unable to answer) Hx Substance Use: No Review of Systems Constitutional: + weakness; no fever and no chills Respiratory: no cough and no dyspnea Cardiovascular: no chest pain and no edema Gastrointestinal: no abdominal pain and no nausea Neurologic: + memory loss (cannot remembers events prior to coming to hospital or since admission) Psychiatric: no anxiety Physical Exam Constitutional: well developed and well nourished; no acute distress ENMT: Mouth: + oral mucosal abnormality (very dry), + dentition abnormality (several loose teeth, several teeth knocked out) and + poor dentition Neck: normal visual inspection and trachea midline Respiratory: normal respiratory effort, lungs clear to auscultation Cardiovascular: Rate/Rhythm: regular rate and regular rhythm Heart Sounds: no murmur Extremities: no pedal edema Gastrointestinal (Abdomen): Inspection/Auscultation: normal bowel sounds; abdomen not distended Percussion/Palpation: abdomen soft; abdomen nontender Musculoskeletal: Extremities: no cyanosis Skin: no rashes, warm and dry Neurologic: moves all extremities, awake and + confused Psychiatric: Orientation: alert, oriented to person and oriented to place; + not oriented to time Apperance: + disheveled Results & Data Vital Signs (Past 12 Hours) Vital Signs Temp Pulse Pulse Resp BP BP BP 12/14/18 10:30 92 H 23 96/60 L 12/14/18 10:01 85 23 12/14/18 10:00 84 21 87/62 L 12/14/18 09:31 85 22 96/55 L 12/14/18 09:30 92 H 23 12/14/18 09:01 85 21 12/14/18 09:00 85 21 81/53 L 12/14/18 08:31 90 25 H 94/57 L 12/14/18 08:30 90 22 12/14/18 08:01 86 21 111/34 L 12/14/18 08:00 85 21 12/14/18 07:48 84 12/14/18 07:33 96 H 20 12/14/18 07:32 37.4 C 95 H 21 105/49 L 12/14/18 07:30 100 H 24 12/14/18 07:01 91 H 24 87/51 L 12/14/18 07:00 93 H 23 12/14/18 06:45 100 H 26 H 12/14/18 06:30 92 H 24 88/46 L 120/41 L 12/14/18 06:00 86 19 105/44 L 121/42 L 12/14/18 05:30 88 22 81/49 L 119/35 L 12/14/18 05:00 96 H 29 H 98/60 L 115/38 L 12/14/18 04:30 89 22 92/55 L 121/34 L 12/14/18 04:00 37.2 C 93 H 27 H 91/70 L 118/34 L 12/14/18 03:30 86 22 93/40 L 103/37 L 12/14/18 03:00 102 H 32 H 84/56 L 118/47 L 12/14/18 02:30 95 H 25 H 101/41 L 120/38 L 12/14/18 02:00 102 H 18 85/45 L 118/44 L 12/14/18 01:30 88 21 97/53 L 126/45 L 12/14/18 01:00 88 23 99/58 L 121/42 L 12/14/18 00:30 85 23 104/67 133/44 L 12/14/18 00:00 37.4 C 87 96 H 21 126/45 L 12/13/18 23:30 89 24 111/69 105/38 L 12/13/18 23:00 88 24 104/40 L Pulse Ox 12/14/18 10:30 90 12/14/18 10:01 98 12/14/18 10:00 99 12/14/18 09:31 97 12/14/18 09:30 97 12/14/18 09:01 98 12/14/18 09:00 98 12/14/18 08:31 96 12/14/18 08:30 97 12/14/18 08:01 97 12/14/18 08:00 98 12/14/18 07:48 12/14/18 07:33 97 12/14/18 07:32 96 12/14/18 07:30 96 12/14/18 07:01 98 12/14/18 07:00 97 12/14/18 06:45 97 12/14/18 06:30 98 12/14/18 06:00 98 12/14/18 05:30 98 12/14/18 05:00 95 12/14/18 04:30 99 12/14/18 04:00 97 12/14/18 03:30 98 12/14/18 03:00 95 12/14/18 02:30 96 12/14/18 02:00 97 12/14/18 01:30 99 12/14/18 01:00 99 12/14/18 00:30 99 12/14/18 00:00 97 12/13/18 23:30 97 12/13/18 23:00 97 Time Spent Midlevel 70 minutes with >50% of time spent at bedside with patient and on phone with family discussing condition, GOC and CODE STATUS.
[2018-12-14] MEDS: ASPIRIN 81 MG CHEW PO SCH (11:45)
[2018-12-14] MEDS: ATORVASTATIN 40 MG TAB PO SCH (11:46)
[2018-12-14 11:48] LABS: Partial Thromboplastin Ratio 1.9
[2018-12-14 11:59] LABS: Partial Thromboplastin Time 50.2 Seconds (21.0-31.0)
[2018-12-14] MEDS: HEPARIN SODIUM/DEXTROSE 25,000 UNITS/500 ML BAG IV SCH (14:15)
[2018-12-14 16:36] LABS: BUN Creatinine Ratio 20.3 (10-20); Calcium 8.4 mg/dl (8.5-10.1); Creatinine Clr Calc Pharmacy 48.9 ml/min; Est GFR (African American) 51.2; Est GFR (Non-African American) 44.1; Potassium 4.5 mmol/L (3.5-5.1)
[2018-12-14] MEDS: THIAMINE HCL 100 MG in SYRINGE 9 ML IV SCH (21:44)
--- NOTE | 2018-12-14 22:01 | Hospitalist Progress Note ---
Date of Service December 14, 2018 Assessment & Plan (1) Hypovolemic shock: resolved with aggressive hydration and Levophed (2) Metabolic acidosis: resolved, pH was 7.39 most recently was due to lactic acidosis and renal failure, both of which adequately treated (3) TERRY (acute kidney injury): likely due to dehydration and hypotension no signs of septic shock could also be due to ingestion of unknown substance ( admitted to drinking rubbing alcohol) aggressive hydration at first due to hypotension two 1000cc boluses given and then run Normosol at 80cc/hr miguel placed for accurate UO nephrology consulted for recommendations Cr down to 1.2, making adequate urine, on fluids due to no PO intake (4) Acute respiratory failure: extubated 12/13 in the evening breathing stable on 2L NC no distress, lungs clear (5) Atrial fibrillation with RVR: required cardioversion in the ED due to hemodynamic instability now in sinus rhythm typically on Coreg and Xarelto, unsure if she was actually taking at home echo is normal cannot tolerate PO medications, would need IV treatment if goes into RVR (6) Alcohol dependence: h/o such, per family has not been drinking alcohol for two years ETOH negative on admission (7) Neurocognitive disorder: per family, has alcohol induced dementia needs cared for by started drinking again and was neglecting care of the patient not oriented or alert after being off of sedation prone to agitation EEG suggested moderate encephalopathy, non-specific origin could not cooperate for MRI sister, who is POA, has thought that she may require placement in SNF her cognitive status has been declining (8) UTI (urinary tract infection): urine culture with 100k gram negative bacteria treat with Rocephin and Doxycycline follow up final cultures Subjective patient extubated last night breathing well on room air, no distress very confused and lethargic EEG performed today reviewed labs discussed with ICU staff Review of Systems Review of Systems: Unobtainable due to mental health condition and Unobtai nable due to cognitive status Physical Exam Constitutional: well developed, well nourished and + obese Eyes: PERRL, conjunctivae normal, anicteric sclerae ENMT: Nose: no nasal discharge Mouth: + oral mucosal abnormality (very dry) and + dentition abnormality (several loose teeth, several teeth knocked out) Neck: trachea midline, no thyromegaly Respiratory: normal respiratory effort, lungs clear to auscultation Cardiovascular: RRR, no murmur, no edema Gastrointestinal (Abdomen): normal bowel sounds, soft, nontender, no hepatosplenomegaly Musculoskeletal: Head/Neck/Chest: normocephalic and head atraumatic Extremities: no cyanosis and no clubbing Skin: no rashes, warm and dry Neurologic: CN's II-XI intact bilaterally and moves all extremities; no focal motor deficits Psychiatric: Orientation: + not oriented to person, + not oriented to place and + not oriented to time Apperance: + disheveled Lymphatic: no cervical or axillary lymphadenopathy Results & Data Vital Signs (Past 12 Hours) Vital Signs Temp Pulse Resp BP Pulse Ox 12/14/18 18:00 93 H 23 99/63 L 96 12/14/18 17:03 97 H 26 H 128/73 12/14/18 16:00 37.6 C H 90 26 H 105/58 L 96 12/14/18 15:00 99 H 28 H 96/68 L 93 12/14/18 14:01 95 H 20 96/57 L 12/14/18 13:00 89 21 112/59 L 95 12/14/18 12:00 37.6 C H 88 21 101/52 L 97 12/14/18 11:00 88 22 97/51 L 97 12/14/18 10:30 92 H 23 96/60 L 90 12/14/18 10:01 85 23 98 12/14/18 10:00 84 21 87/62 L 99 Laboratory Results Laboratory Results - last 24 hr 12/14/18 12/14/18 12/14/18 00:06 04:12 04:12 WBC 7.94 RBC 3.25 L Hgb 9.5 L Hct 27.8 L MCV 85.5 MCH 29.2 MCHC 34.2 RDW Std Deviation 48.4 H RDW Coeff of Hari 15.4 H Plt Count 267 MPV 9.1 Immature Gran % (Auto) 0.5 Neut % (Auto) 83.2 Lymph % (Auto) 9.9 [place] % (Auto) 5.8 Eos % (Auto) 0.5 Baso % (Auto) 0.1 Immature Gran # (Auto) 0.04 H Neut # (Auto) 6.60 H Lymph # (Auto) 0.79 L [place] # (Auto) 0.46 Eos # (Auto) 0.04 Baso # (Auto) 0.01 Dohle Bodies 1+ PT 12.3 H INR 1.2 H APTT 45.8 H* PTT Ratio 1.7 Sodium Potassium Chloride Carbon Dioxide Anion Gap BUN Creatinine Est Cr Clr Drug Dosing Est GFR ( Amer) Est GFR (Non-Af Amer) BUN/Creatinine Ratio Glucose POC Glucose (other) 126 H Lactate Calcium Phosphorus Magnesium TIBC Urine Color Urine Appearance Urine pH Ur Specific [place] Urine Protein Urine Glucose (UA) Urine Ketones Urine Blood Urine Nitrite Urine Bilirubin Urine Urobilinogen Ur Leukocyte Esterase Urine WBC (Auto) Urine RBC (Auto) U Hyaline Cast (Auto) U Epithel Cells (Auto) Urine Bacteria (Auto) Granular Casts 12/14/18 12/14/18 12/14/18 04:12 04:12 05:22 WBC RBC Hgb Hct MCV MCH MCHC RDW Std Deviation RDW Coeff of Hari Plt Count MPV Immature Gran % (Auto) Neut % (Auto) Lymph % (Auto) [place] % (Auto) Eos % (Auto) Baso % (Auto) Immature Gran # (Auto) Neut # (Auto) Lymph # (Auto) [place] # (Auto) Eos # (Auto) Baso # (Auto) Dohle Bodies PT INR APTT PTT Ratio Sodium 136 Potassium 3.7 Chloride 110 H Carbon Dioxide 20 L Anion Gap 6.0 BUN 35 H Creatinine 1.65 H D Est Cr Clr Drug Dosing 37.9 Est GFR ( Amer) 37.6 Est GFR (Non-Af Amer) 32.5 BUN/Creatinine Ratio 21.1 H Glucose 98 POC Glucose (other) 95 Lactate 0.8 Calcium 7.7 L Phosphorus 3.0 Magnesium 1.9 TIBC Urine Color Urine Appearance Urine pH Ur Specific [place] Urine Protein Urine Glucose (UA) Urine Ketones Urine Blood Urine Nitrite Urine Bilirubin Urine Urobilinogen Ur Leukocyte Esterase Urine WBC (Auto) Urine RBC (Auto) U Hyaline Cast (Auto) U Epithel Cells (Auto) Urine Bacteria (Auto) Granular Casts 12/14/18 12/14/18 12/14/18 10:00 11:01 11:01 WBC RBC Hgb Hct MCV MCH MCHC RDW Std Deviation RDW Coeff of Hari Plt Count MPV Immature Gran % (Auto) Neut % (Auto) Lymph % (Auto) [place] % (Auto) Eos % (Auto) Baso % (Auto) Immature Gran # (Auto) Neut # (Auto) Lymph # (Auto) [place] # (Auto) Eos # (Auto) Baso # (Auto) Dohle Bodies PT INR APTT 50.2 H* PTT Ratio 1.9 Sodium Potassium Chloride Carbon Dioxide Anion Gap BUN Creatinine Est Cr Clr Drug Dosing Est GFR ( Amer) Est GFR (Non-Af Amer) BUN/Creatinine Ratio Glucose POC Glucose (other) Lactate Calcium Phosphorus Magnesium TIBC 156 L Urine Color Yellow Urine Appearance Clear Urine pH 5.0 Ur Specific [place] 1.016 Urine Protein 1+ H Urine Glucose (UA) Negative Urine Ketones Negative Urine Blood Trace H Urine Nitrite Negative Urine Bilirubin Negative Urine Urobilinogen Negative Ur Leukocyte Esterase Negative Urine WBC (Auto) 1-5 Urine RBC (Auto) 10-30 H U Hyaline Cast (Auto) 1-5 U Epithel Cells (Auto) >30 H Urine Bacteria (Auto) Negative Granular Casts 1-5 H 12/14/18 15:29 WBC RBC Hgb Hct MCV MCH MCHC RDW Std Deviation RDW Coeff of Hari Plt Count MPV Immature Gran % (Auto) Neut % (Auto) Lymph % (Auto) [place] % (Auto) Eos % (Auto) Baso % (Auto) Immature Gran # (Auto) Neut # (Auto) Lymph # (Auto) [place] # (Auto) Eos # (Auto) Baso # (Auto) Dohle Bodies PT INR APTT PTT Ratio Sodium 136 Potassium 4.5 D Chloride 109 H Carbon Dioxide 20 L Anion Gap 7.0 BUN 26 H Creatinine 1.28 H D Est Cr Clr Drug Dosing 48.9 Est GFR ( Amer) 51.2 Est GFR (Non-Af Amer) 44.1 BUN/Creatinine Ratio 20.3 H Glucose 87 POC Glucose (other) Lactate Calcium 8.4 L Phosphorus Magnesium TIBC Urine Color Urine Appearance Urine pH Ur Specific [place] Urine Protein Urine Glucose (UA) Urine Ketones Urine Blood Urine Nitrite Urine Bilirubin Urine Urobilinogen Ur Leukocyte Esterase Urine WBC (Auto) Urine RBC (Auto) U Hyaline Cast (Auto) U Epithel Cells (Auto) Urine Bacteria (Auto) Granular Casts Medications Administered Current Inpatient Medications Albuterol (Duoneb) 3 ml INH Q4H PRN PRN Reason: Dyspnea Stop: 01/11/19 17:28 Aspirin (Aspirin Chew) 81 mg PO DAILY [facility] Stop: 01/12/19 08:59 Last Admin: 12/14/18 11:45 Dose: Not Given Documented by: Atorvastatin Calcium (Lipitor) 40 mg PO QAM [facility] Stop: 01/12/19 08:59 Last Admin: 12/14/18 11:46 Dose: Not Given Documented by: Bisacodyl (Dulcolax) 10 mg IA DAILY PRN PRN Reason: Constipation Stop: 01/11/19 17:28 Dextrose (Dextrose 50%) 25 - 50 ml IV UD PRN; Protocol PRN Reason: Hypoglycemia Protocol Stop: 01/11/19 17:28 Glucagon (Glucagen) 1 mg SQ UD PRN; Protocol PRN Reason: Hypoglycemia Protocol Stop: 01/11/19 17:28 Glucose (Glucose 40%) 15 - 30 gm PO UD PRN; Protocol PRN Reason: Hypoglycemia Protocol Stop: 01/11/19 17:28 Glucose (Dex4 Glucose) 4 - 8 tabs PO UD PRN; Protocol PRN Reason: Hypoglycemia Protocol Stop: 01/11/19 17:28 Parenteral Electrolytes (Normosol-R) 1,000 mls @ 80 mls/hr IV .[id number] [facility] Stop: 01/11/19 17:28 Last Admin: 12/14/18 09:26 Dose: 80 mls/hr Documented by: Famotidine 20 mg/ Syringe 5 mls @ 2.5 mls/min IV Q12H [facility] Stop: 01/11/19 19:59 Last Admin: 12/14/18 08:35 Dose: 2.5 mls/min Documented by: Folic Acid 1 mg/ Syringe 10 mls @ [facility] Stop: 01/12/19 08:59 Last Admin: 12/14/18 08:35 Dose: 5 mls/min Documented by: Thiamine HCl 100 mg/ Syringe 10 mls @ 2 mls/hr IV Q24H [facility] Stop: 01/12/19 17:59 Last Admin: 12/13/18 18:37 Dose: 2 mls/hr Documented by: Norepinephrine Bitartrate 8 mg (/ Dextrose) 508 mls @ 0 mls/hr IV .Q0M [facility]; Protocol Stop: 01/11/19 17:44 Last Titration: 12/14/18 07:03 Dose: 0 mcg/kg/min, 0 mls/hr Documented by: Heparin Sodium/Dextrose (Heparin Sodium/Dextrose) 25,000 units in 500 mls @ 25 mls/hr IV .Q20H [facility]; Protocol Stop: 01/11/19 18:29 Last Admin: 12/14/18 14:15 Dose: 1,250 units/hr, 25 mls/hr Documented by: Doxycycline Hyclate 100 mg/ (Dextrose) 110 mls @ 50 mls/hr IV BID [facility] Stop: 12/20/18 20:59 Last Infusion: 12/14/18 11:49 Dose: Infused Documented by: Ceftriaxone Sodium 2,000 mg/ (Dextrose) 50 mls @ 100 mls/hr IV Q24H [facility] Stop: 12/20/18 09:59 Last Infusion: 12/14/18 10:54 Dose: Infused Documented by: Magnesium Sulfate/Dextrose (Magnesium Sulfate / D5w) 1 gm in 100 mls @ 100 mls/hr IV 0900,1000,2000,2100 [facility] Stop: 12/14/18 23:50 Last Infusion: 12/14/18 10:54 Dose: Infused Documented by: Insulin Aspart (Novolog Flexpen) 0 units SC Q6 [facility] Stop: 01/11/19 18:59 Last Admin: 12/14/18 17:21 Dose: Not Given Documented by: Miscellaneous (Carbohydrates For Hypoglycemia) 15 - 30 gm PO UD PRN PRN Reason: Hypoglycemia Treatment Stop: 01/11/19 17:28 Miscellaneous Information (Consult Glycemic Management Pharmacy) 1 ea N/A UD PRN; Protocol PRN Reason: Consult Stop: 01/11/19 18:05 Polyethylene Glycol (Miralax Powder Packet) 17 gm PO DAILY PRN PRN Reason: Constipation Stop: 01/11/19 17:28
[2018-12-15] MEDS: INSULIN ASPART 100 UNITS/ML 3 ML PEN SC SCH ×4 (00:25→18:22)
[2018-12-15 04:29] LABS: Hematocrit (blood only) 26.2 % (37-47); Mean Corpuscular Hgb Conc 34.4 g/dL (32-36); Mean Corpuscular Volume 85.9 fL (80-100); Mean Platelet Volume 9.3 fL (7.4-10.4); Platelet Count 247 K/uL (130-400); RDW Coefficient of Variation 15.6 % (11.5-14.5); RDW Standard Deviation 49.4 fL (36.4-46.3); Red Blood Count 3.05 M/uL (4.2-5.4)
[2018-12-15 04:49] LABS: INR 1.3 (0.9-1.1); Partial Thromboplastin Ratio 1.9; Prothrombin Time 12.9 Seconds (9.0-12.0)
[2018-12-15 04:55] LABS: Partial Thromboplastin Time 52.4 Seconds (21.0-31.0)
[2018-12-15 04:57] LABS: BUN Creatinine Ratio 21.2 (10-20); Calcium 8.1 mg/dl (8.5-10.1); Creatinine Clr Calc Pharmacy 63.9 ml/min; Est GFR (African American) 70.7; Magnesium 2.1 mg/dl (1.8-2.4); Phosphorus 2.9 mg/dl (2.5-4.9); Potassium 3.8 mmol/L (3.5-5.1)
[2018-12-15 05:14] LABS: Basophils # (auto) 0.01 K/uL (0-0.2); Basophils % (auto) 0.1 %; Dohle Bodies 1+; Echinocytes 1+; Eosinophils # (auto) 0.12 K/uL (0-0.5); Eosinophils % (auto) 1.4 %; Immature Granulocytes # (auto) 0.05 K/uL (0.00-0.02); Immature Granulocytes % (auto) 0.6 %; Lymphocytes # (auto) 1.05 K/uL (1.2-3.4); Lymphocytes % (auto) 12.1 %; Monocytes # (auto) 0.29 K/uL (0.11-0.59); Monocytes % (auto) 3.3 %; Neutrophils # (auto) 7.18 K/uL (1.4-6.5); Neutrophils % (auto) 82.5 %
--- NOTE | 2018-12-15 06:27 | Critical Care Progress Note ---
Date of Service December 15, 2018 Assessment & Plan (1) Admitted to intensive care unit: Savanna Mercado is a 62 y/o female with past medical history of alcoholism, chronic atrial fibrillation requiring long-term anticoagulation, agoraphobia, poor compliance, poor social support, HLD, who was brought to the [facility] ED with confusion, afib with RVR, dyspnea, and agitation. Last known well at neuro baseline 2 days LAYER OUT, Monday. Her neuro baseline was reported poor from chronic alcohol abuse with what sounds like Wernicke encephalopathy. Her inside upholsterer is her who also is an alcoholic. reported to have been drinking rubbing alcohol because ran out of EtOH at home. Unknown patient's last drink of EtOH or if drank isopropyl alcohol or other alcohol substitute. Her living conditions at home were found to be poor, reports of animal and human feces on floor. In ED, she required intubation to protect airway. She was in afib w/RVR with rates in the 150s, became hypotensive requiring cardioversion which coverted patient to sinus. Cr was elevated to 4.7; had a metabolic acidosis. CT Head showed NAD, CXR unremarkable. Neuro: - Head CT from 12/12 in ED NAD - RASS -1 - Could not tolerate MRI imaging because cannot follow commands, EEG showed delirium. - Questionable Alcohol withdrawal, reportedly sober for past two years, however, alcoholic and was drinking isopropyl alcohol, no osmolar gap here in ICU upon admission. Cardiac/Vascular: - Prolonged QTC improving - BPs improved, currently 110s/60s. - Echocardiogram - LV normal size and wall thickness. LV systolic function is low normal. LV wall motion is normal - EF 50-55% - Normal diastolic function Pulm: - Extubated on 12/13, with NC supplemental oxygenation GI/Nutrition: - Famotidine 20mg IV q12H - Thiamine 100mg IV q 24h; Folic Acid 1mg IV qAM with considerations for poor nutritional status secondary to alcohol abuse. - Discussed probably need for parenteral nutrition, but with goal of extubation today will hold for now. - Hypoalbuminemia Renal/electrolytes: IV fluids - - Parenteral electrolytes with normosol-R @80mls/hr - hypokalemic today at 3.3 and will replete with 60meqs KCl - Adequate urine output showing good perfusion to kidneys. : Acosta cath with good urine return of light yellow colored urine. Endo: No history of diabetes, but will workup for elevated sugars here. A1C = 6.3, showing insulin resistance and since less than 6.5, no diagnosis of diabetes, ICU hyperglycemia protocol normal TSH on labwork Heme: - H&H stable, Platelets stable ID: - Urine culture positive for gram negative bacilli >100,000 CFU. - Antibiotic coverage with Doxycycline 100mg IV BID; Rocephin 2,000 mg IV qday. Will cover urinary tract infection and also provide pulmonary coverage for atypicals/empiric coverage and strep pneumo. - WBC WNL - Lactate WNL Lines: perpheral lines, arterial line intact; Central venous access intact DVT ppx: SCDs; Heparin 1,250 units/hr Oral/Max surgeon consulted as 3 teeth were damaged during intubation, two were recovered, and the other found on imaging. CXR showed tooth in LUQ below diaphragm suggesting gastric location. Oral/max note reviewed showing severe dental disease as teeth would have fallen out with ET tube regardless. Resuscitation status: Full Code. Supervising Physician Co-Signing Physician Notes Dr. Briones was resident physician during care of patient. I separately evaluated patient for montano portions of the history and the exam. I was present during the critical portion of medical decision making, and I discussed the case with the resident. I generally agree with the findings and plan. Given thiamine repletion. Remained off vasoactive medication pansensitive Klebsiella will finish 7-day treatment course of Rocephin doxycycline to cover both respiratory and urinary pathogens. Creatinine significantly improved. Stable for downgrade out of ICU. I discussed the patient with Dr. Allen of the hospitalist service. Subjective No overnight events, mildly improving mental status Review of Systems Review of Systems: Unobtainable due to reduced consciousness Physical Exam Physical Exam: General: Easily arousable. Confused Skin: Warm, dry, Head: Atraumatic Ears, nose, mouth and throat: airway patent, poor dentition Cardiovascular: Normal peripheral perfusion Respiratory: no respiratory distress Gastrointestinal: Non distended Musculoskeletal: No deformity Results & Data Vital Signs (Past 12 Hours) Vital Signs Temp Pulse Resp BP Pulse Ox 12/15/18 05:00 91 H 23 111/60 98 12/15/18 04:00 36.7 C 80 19 94/57 L 99 12/15/18 03:00 78 17 101/52 L 99 12/15/18 02:00 78 17 111/55 L 98 12/15/18 01:01 81 20 98 12/15/18 01:00 80 18 99/61 L 99 12/15/18 00:00 36.7 C 77 18 97/55 L 97 12/14/18 23:00 87 21 97/63 L 97 12/14/18 22:00 88 21 108/59 L 95 12/14/18 21:00 96 H 24 113/60 98 12/14/18 20:00 36.7 C 104 H 17 115/58 L 98 12/14/18 19:00 104 H 21 115/57 L 91 Laboratory Results 12/15/18 12/15/18 12/15/18 Range/Units 12:16 11:15 04:14 WBC (4.8-10.8) K/uL RBC (4.2-5.4) M/uL Hgb (12.0-16.0) g/dL Hct (37-47) % MCV (80-100) fL MCH (25-34) pg MCHC (32-36) g/dL RDW Std Deviation (36.4-46.3) fL RDW Coeff of Hari (11.5-14.5) % Plt Count (130-400) K/uL MPV (7.4-10.4) fL Immature Gran % (Auto) % Neut % (Auto) % Lymph % (Auto) % [place] % (Auto) % Eos % (Auto) % Baso % (Auto) % Immature Gran # (Auto) (0.00-0.02) K/uL Neut # (Auto) (1.4-6.5) K/uL Lymph # (Auto) (1.2-3.4) K/uL [place] # (Auto) (0.11-0.59) K/uL Eos # (Auto) (0-0.5) K/uL Baso # (Auto) (0-0.2) K/uL Dohle Bodies Echinocytes PT (9.0-12.0) Seconds INR (0.9-1.1) APTT (21.0-31.0) Seconds PTT Ratio Sample Site Art Line POC pH 7.39 (7.35-7.45) POC pCO2 31 L (35-46) mmHg POC pO2 59 L (80-95) mmHg POC HCO3 19 (19-24) lindsay/L POC Total CO2 20 L (24-31) mEq/l POC Base Excess -6.0 (-9-1.8) lindsay/L POC ABG O2 Sat 90.0 (90-95) % Josr Test NA O2 Delivery Device Cannula Sodium 136 (136-145) mmol/L Potassium 3.8 D (3.5-5.1) mmol/L Chloride 109 H (98-107) mmol/L Carbon Dioxide 23 (21-32) mmol/L Anion Gap 4.0 (3-11) BUN 21 H (7-18) mg/dl Creatinine 0.98 D (0.6-1.2) mg/dl Est Cr Clr Drug Dosing 63.9 ml/min Est GFR ( Amer) 70.7 Est GFR (Non-Af Amer) 61.0 BUN/Creatinine Ratio 21.2 H (10-20) Glucose 87 (70-99) mg/dl POC Glucose 108 H (70-99) Calcium 8.1 L (8.5-10.1) mg/dl Phosphorus 2.9 (2.5-4.9) mg/dl Magnesium 2.1 (1.8-2.4) mg/dl 12/15/18 12/15/18 12/15/18 Range/Units 04:14 04:14 00:06 WBC 8.70 (4.8-10.8) K/uL RBC 3.05 L (4.2-5.4) M/uL Hgb 9.0 L (12.0-16.0) g/dL Hct 26.2 L (37-47) % MCV 85.9 (80-100) fL MCH 29.5 (25-34) pg MCHC 34.4 (32-36) g/dL RDW Std Deviation 49.4 H (36.4-46.3) fL RDW Coeff of Hari 15.6 H (11.5-14.5) % Plt Count 247 (130-400) K/uL MPV 9.3 (7.4-10.4) fL Immature Gran % (Auto) 0.6 % Neut % (Auto) 82.5 % Lymph % (Auto) 12.1 % [place] % (Auto) 3.3 % Eos % (Auto) 1.4 % Baso % (Auto) 0.1 % Immature Gran # (Auto) 0.05 H (0.00-0.02) K/uL Neut # (Auto) 7.18 H (1.4-6.5) K/uL Lymph # (Auto) 1.05 L (1.2-3.4) K/uL [place] # (Auto) 0.29 (0.11-0.59) K/uL Eos # (Auto) 0.12 (0-0.5) K/uL Baso # (Auto) 0.01 (0-0.2) K/uL Dohle Bodies 1+ Echinocytes 1+ PT 12.9 H (9.0-12.0) Seconds INR 1.3 H (0.9-1.1) APTT 52.4 H* (21.0-31.0) Seconds PTT Ratio 1.9 Sample Site POC pH (7.35-7.45) POC pCO2 (35-46) mmHg POC pO2 (80-95) mmHg POC HCO3 (19-24) lindsay/L POC Total CO2 (24-31) mEq/l POC Base Excess (-9-1.8) lindsay/L POC ABG O2 Sat (90-95) % Josr Test O2 Delivery Device Sodium (136-145) mmol/L Potassium (3.5-5.1) mmol/L Chloride (98-107) mmol/L Carbon Dioxide (21-32) mmol/L Anion Gap (3-11) BUN (7-18) mg/dl Creatinine (0.6-1.2) mg/dl Est Cr Clr Drug Dosing ml/min Est GFR ( Amer) Est GFR (Non-Af Amer) BUN/Creatinine Ratio (10-20) Glucose (70-99) mg/dl POC Glucose 123 H (70-99) Calcium (8.5-10.1) mg/dl Phosphorus (2.5-4.9) mg/dl Magnesium (1.8-2.4) mg/dl 12/14/18 Range/Units 15:29 WBC (4.8-10.8) K/uL RBC (4.2-5.4) M/uL Hgb (12.0-16.0) g/dL Hct (37-47) % MCV (80-100) fL MCH (25-34) pg MCHC (32-36) g/dL RDW Std Deviation (36.4-46.3) fL RDW Coeff of Hari (11.5-14.5) % Plt Count (130-400) K/uL MPV (7.4-10.4) fL Immature Gran % (Auto) % Neut % (Auto) % Lymph % (Auto) % [place] % (Auto) % Eos % (Auto) % Baso % (Auto) % Immature Gran # (Auto) (0.00-0.02) K/uL Neut # (Auto) (1.4-6.5) K/uL Lymph # (Auto) (1.2-3.4) K/uL [place] # (Auto) (0.11-0.59) K/uL Eos # (Auto) (0-0.5) K/uL Baso # (Auto) (0-0.2) K/uL Dohle Bodies Echinocytes PT (9.0-12.0) Seconds INR (0.9-1.1) APTT (21.0-31.0) Seconds PTT Ratio Sample Site POC pH (7.35-7.45) POC pCO2 (35-46) mmHg POC pO2 (80-95) mmHg POC HCO3 (19-24) lindsay/L POC Total CO2 (24-31) mEq/l POC Base Excess (-9-1.8) lindsay/L POC ABG O2 Sat (90-95) % Josr Test O2 Delivery Device Sodium 136 (136-145) mmol/L Potassium 4.5 D (3.5-5.1) mmol/L Chloride 109 H (98-107) mmol/L Carbon Dioxide 20 L (21-32) mmol/L Anion Gap 7.0 (3-11) BUN 26 H (7-18) mg/dl Creatinine 1.28 H D (0.6-1.2) mg/dl Est Cr Clr Drug Dosing 48.9 ml/min Est GFR ( Amer) 51.2 Est GFR (Non-Af Amer) 44.1 BUN/Creatinine Ratio 20.3 H (10-20) Glucose 87 (70-99) mg/dl POC Glucose (70-99) Calcium 8.4 L (8.5-10.1) mg/dl Phosphorus (2.5-4.9) mg/dl Magnesium (1.8-2.4) mg/dl Resident Activity Tracking Resident Involvement: Resident Care Provided Care Provided: Adult Hospital Medicine (ICU)
[2018-12-15] MEDS ORDERED: DEXTROSE 5% IV SCH (07:00)
[2018-12-15] MEDS ORDERED: FOMEPIZOLE IV SCH (07:00)
[2018-12-15] MEDS: NOREPINEPHRINE BIT INJ 8 MG in DEXTROSE 5% 500 ML IV SCH (07:17)
--- NOTE | 2018-12-15 09:45 | Surgery Consultation ---
Date of Consultation December 15, 2018 Consult date December 13 2018 at 3 pm I saw Mrs. Mercado on at 3 pm December 13 in the ICU after her intubation where 3 teeth were lost (upper incisors). She is now intubated with an oral tube. The overall condition of her teeth is very poor, ongoing advanced periodontal dx is present. Many other other have carious lesions or fractured edges. Given the periodontal condition of the teeth I this was a know risk to intubation. The risk would have been just as high from the position of the tube in the mouth given the condition of these hopeless teeth. 2 teeth were found and the third was found on KUB x ray in stomach. This tooth looks to be a fragment as I feel the root is still in place w/in the dental socket. This is not an issue at the present time can always be removed once the patients medical condition improves to allow further extractions and routine dental treatment. No further oral surgery/dental treatment needed at this time until discharge from hospital or medical condition improves. Please let me know if I can be of further assistance in the care of this case. History of Present Illness Attending Physician: Reyes Allen DO Allergies Allergy/AdvReac Type Severity Reaction Status Date / Time No Known Allergies Allergy Verified 12/12/18 17:42 Home Medications Home Medications Medication Instructions Recorded Confirmed Type aspirin 81 mg PO DAILY 12/12/18 12/12/18 History atorvastatin 40 mg PO DAILY 12/12/18 12/12/18 History calcium carbonate [Tums] 200 mg PO DIRECTED PRN 12/12/18 12/12/18 History carvedilol 3.125 mg PO QAM 12/12/18 12/12/18 History carvedilol 12.5 mg PO BIDM 12/12/18 12/12/18 History escitalopram oxalate 10 mg PO DAILY 12/12/18 12/12/18 History ferrous sulfate 325 mg PO BID 12/12/18 12/12/18 History fluticasone propionate 2 spray INTRANASAL DAILY 12/12/18 12/12/18 History folic acid 1 mg PO DAILY 12/12/18 12/12/18 History magnesium oxide 400 mg PO BID 12/12/18 12/12/18 History multivitamin,tf-llqt-[id number] 1 tab PO DAILY 12/12/18 12/12/18 History [Therems-M] omeprazole 20 mg PO DAILY 12/12/18 12/12/18 History rivaroxaban [Xarelto] 15 mg PO PM 12/12/18 12/12/18 History spironolactone 25 mg PO DAILY 12/12/18 12/12/18 History thiamine HCl (vitamin B1) [Vitamin 50 mg PO BID 12/12/18 12/12/18 History B-1] Patient History Medical History Trimalleolar fracture of left ankle (Resolved) Dislocation of ankle joint (Resolved) Trimalleolar fracture of right ankle (Resolved) GERD (gastroesophageal reflux disease) (Chronic) Hyperlipidemia (Chronic) longterm (current) use of 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 (Chronic) Alcohol dependence (Chronic) Acute liver disease (Chronic) Hypotension (Resolved) Rapid atrial fibrillation (Chronic) High anion gap metabolic acidosis Family History Other Diabetes Hypertension Social History Preferred Language: Micronesian Communication Ability: Unable Scrub Technician Required: Yes Beliefs That Will Affect Care: None marital status: Current Living Situation: Spouse Other Information That Helps Us Care for You: No Feels Safe at Home: Declines to Answer Smoking Status: Current every day smoker Hx Alcohol Use: Yes (Per Report, patient unable to answer) Hx Substance Use: No Results & Data Vital Signs (Past 12 Hours) Vital Signs Temp Pulse Resp BP Pulse Ox 12/15/18 08:30 94 H 17 67 L 12/15/18 08:01 84 19 95 12/15/18 08:00 36.8 C 85 20 103/58 L 95 12/15/18 07:00 86 22 104/60 97 12/15/18 06:00 86 22 101/61 99 12/15/18 05:00 91 H 23 111/60 98 12/15/18 04:00 36.7 C 80 19 94/57 L 99 12/15/18 03:00 78 17 101/52 L 99 12/15/18 02:00 78 17 111/55 L 98 12/15/18 01:01 81 20 98 12/15/18 01:00 80 18 99/61 L 99 12/15/18 00:00 36.7 C 77 18 97/55 L 97 12/14/18 23:00 87 21 97/63 L 97 12/14/18 22:00 88 21 108/59 L 95
[2018-12-15] MEDS: DOXYCYCLINE HYCLATE 100 MG in DEXTROSE 5% 100 ML IV SCH ×2 (09:54→22:10)
[2018-12-15] MEDS: cefTRIAXone SODIUM 2,000 MG in DEXTROSE 5% 50 ML IV SCH (09:54)
[2018-12-15] MEDS: FAMOTIDINE 20 MG in SYRINGE 3 ML IV SCH ×2 (09:54→22:10)
[2018-12-15] MEDS: HEPARIN SODIUM/DEXTROSE 25,000 UNITS/500 ML BAG IV SCH (09:55)
[2018-12-15] MEDS: FOLIC ACID 1 MG in SYRINGE 9.8 ML IV SCH (09:55)
[2018-12-15] MEDS: ATORVASTATIN 40 MG TAB PO SCH (10:03)
[2018-12-15] MEDS: ASPIRIN 81 MG CHEW PO SCH (10:03)
[2018-12-15] MEDS: NORMOSOL-R 1,000 ML IV SCH (11:16)
[2018-12-15 12:29] LABS: iSTAT Arterial Blood Gas HCO3 19 meg/L (19-24); iSTAT Arterial Blood Gas pCO2 31 mmHg (35-46); iSTAT Arterial Blood Gas pH 7.39 (7.35-7.45); iSTAT Carbon Dioxide 20 mEq/l (24-31); iSTAT Site Art Line
--- NOTE | 2018-12-15 16:58 | XRay Report ---
XR KUB/Abdomen 1 view CLINICAL HISTORY: s/p swallowed tooth 72hr follow up COMPARISON STUDY: 12/12/2018 FINDINGS: The study was performed in a portable fashion, and is limited from a technical standpoint. There is motion artifact. There is been interval removal of the enteric tube. There is a stable calci fication projected over the left L2 transverse process. There is no evidence of obstruction on the bernardo pine study. There is a nonspecific 18 mm left upper quadrant opacity. IMPRESSION: 1. No evidence of pathologic bowel dilatation 2. 18 mm calcific density within the left upper quadrant. While nonspecific, this potentially could r epresent a swallowed tooth. Electronically signed by: Kg Doran M.D. 12/15/2018 4:56 PM
[2018-12-15] MEDS: THIAMINE HCL 100 MG in SYRINGE 9 ML IV SCH (18:22)
[2018-12-15] MEDS ORDERED: METOPROLOL TARTRATE 1 MG/ML VIAL IV STA ×4 (19:58→21:54)
[2018-12-15] MEDS ORDERED: LORazepam 1 MG TAB PO PRN (20:11)
[2018-12-15] MEDS ORDERED: LORazepam 1 MG/2 ML VIAL IV STA (20:14)
[2018-12-15] MEDS ORDERED: POTASSIUM CHLORIDE 20 MEQ TABCR PO STA (20:34)
[2018-12-15] MEDS ORDERED: METOPROLOL TARTRATE 1 MG/ML VIAL IV ONE (21:06)
--- NOTE | 2018-12-15 21:40 | Hospitalist Progress Note ---
Date of Service December 15, 2018 Assessment & Plan (1) Hypovolemic shock: resolved with aggressive hydration and Levophed (2) Metabolic acidosis: resolved, pH was 7.39 most recently was due to lactic acidosis and renal failure, both of which adequately treated (3) TERRY (acute kidney injury): likely due to dehydration and hypotension no signs of septic shock could also be due to ingestion of unknown substance ( admitted to drinking rubbing alcohol) aggressive hydration at first due to hypotension two 1000cc boluses given and then run Normosol at 80cc/hr miguel placed for accurate UO nephrology consulted for recommendations Cr down to 0.9, making adequate urine, on fluids due to no PO intake (4) Acute respiratory failure: extubated 12/13 in the evening breathing stable on 2L NC no distress, lungs clear (5) Atrial fibrillation with RVR: required cardioversion in the ED due to hemodynamic instability now in sinus rhythm typically on Coreg and Xarelto, unsure if she was actually taking at home echo is normal cannot tolerate PO medications, would need IV treatment if goes into RVR continue heparin gtt for anticoagulation (6) Alcohol dependence: h/o such, per family has not been drinking alcohol for two years ETOH negative on admission no current signs of withdrawal, was likely not drinking recently (7) Neurocognitive disorder: per family, has alcohol induced dementia needs cared for by started drinking again and was neglecting care of the patient not oriented or alert after being off of sedation prone to agitation EEG suggested moderate encephalopathy, non-specific origin could not cooperate for MRI sister, who is POA, has thought that she may require placement in SNF her cognitive status has been declining may need placement on discharge, CM consulted (8) UTI (urinary tract infection): urine culture - Klebsiella, perkins sensitive continue Rocephin, stop Doxycycline Subjective patient would not follow commands today she answered questions with "yes" she had some increased agitation this morning, got a bath and was then calm reviewed labs discussed with Dr. Cha will transfer to medical tele today could not get MRI brain, can't follow commands CR is 0.9, WBC is 8, Hb down to 9 urine culture with Klebsiella, perkins sensitive Review of Systems Review of Systems: Unobtainable due to mental health condition and Unobtainable due to cognitive status Physical Exam Constitutional: well developed, well nourished and + obese Eyes: PERRL, conjunctivae normal, anicteric sclerae ENMT: Nose: no nasal discharge Mouth: + oral mucosal abnormality (very dry) and + dentition abnormality (several loose teeth, several teeth knocked out) Neck: trachea midline, no thyromegaly Respiratory: normal respiratory effort, lungs clear to auscultation Cardiovascular: RRR, no murmur, no edema Gastrointestinal (Abdomen): normal bowel sounds, soft, nontender, no hepatosplenomegaly Musculoskeletal: Head/Neck/Chest: normocephalic and head atraumatic Extremities: no cyanosis and no clubbing Skin: no rashes, warm and dry Neurologic: CN's II-XI intact bilaterally and moves all extremities; no focal motor deficits Psychiatric: Orientation: + not oriented to person, + not oriented to place and + not oriented to time Apperance: + disheveled Lymphatic: no cervical or axillary lymphadenopathy Results & Data Vital Signs (Past 12 Hours) Vital Signs Temp Pulse Resp BP Pulse Ox 12/15/18 20:14 36.6 C 172 H 24 118/72 90 12/15/18 19:39 36.9 C 124 H 19 119/80 95 12/15/18 11:00 95 H 18 121/70 12/15/18 10:28 91 H 24 110/61 12/15/18 10:00 85 20 110/61 Laboratory Results Microbiology 12/13/18 10:20 Blood Blood Culture - Preliminary No growth to date. 12/13/18 10:15 Blood Blood Culture - Preliminary No growth to date. 12/12/18 17:49 Urine,Clean Catch Urine Culture - Final Klebsiella oxytoca Laboratory Results - last 24 hr 12/15/18 12/15/18 12/15/18 00:06 04:14 04:14 WBC 8.70 RBC 3.05 L Hgb 9.0 L Hct 26.2 L MCV 85.9 MCH 29.5 MCHC 34.4 RDW Std Deviation 49.4 H RDW Coeff of Hari 15.6 H Plt Count 247 MPV 9.3 Immature Gran % (Auto) 0.6 Neut % (Auto) 82.5 Lymph % (Auto) 12.1 [place] % (Auto) 3.3 Eos % (Auto) 1.4 Baso % (Auto) 0.1 Immature Gran # (Auto) 0.05 H Neut # (Auto) 7.18 H Lymph # (Auto) 1.05 L [place] # (Auto) 0.29 Eos # (Auto) 0.12 Baso # (Auto) 0.01 Dohle Bodies 1+ Echinocytes 1+ PT 12.9 H INR 1.3 H APTT 52.4 H* PTT Ratio 1.9 Sample Site POC pH POC pCO2 POC pO2 POC HCO3 POC Total CO2 POC Base Excess POC ABG O2 Sat Josr Test O2 Delivery Device Sodium Potassium Chloride Carbon Dioxide Anion Gap BUN Creatinine Est Cr Clr Drug Dosing Est GFR ( Amer) Est GFR (Non-Af Amer) BUN/Creatinine Ratio Glucose POC Glucose 123 H Calcium Phosphorus Magnesium 12/15/18 12/15/18 12/15/18 04:14 11:15 12:16 WBC RBC Hgb Hct MCV MCH MCHC RDW Std Deviation RDW Coeff of Hari Plt Count MPV Immature Gran % (Auto) Neut % (Auto) Lymph % (Auto) [place] % (Auto) Eos % (Auto) Baso % (Auto) Immature Gran # (Auto) Neut # (Auto) Lymph # (Auto) [place] # (Auto) Eos # (Auto) Baso # (Auto) Dohle Bodies Echinocytes PT INR APTT PTT Ratio Sample Site Art Line POC pH 7.39 POC pCO2 31 L POC pO2 59 L POC HCO3 19 POC Total CO2 20 L POC Base Excess -6.0 POC ABG O2 Sat 90.0 Josr Test NA O2 Delivery Device Cannula Sodium 136 Potassium 3.8 D Chloride 109 H Carbon Dioxide 23 Anion Gap 4.0 BUN 21 H Creatinine 0.98 D Est Cr Clr Drug Dosing 63.9 Est GFR ( Amer) 70.7 Est GFR (Non-Af Amer) 61.0 BUN/Creatinine Ratio 21.2 H Glucose 87 POC Glucose 108 H Calcium 8.1 L Phosphorus 2.9 Magnesium 2.1 12/15/18 18:11 WBC RBC Hgb Hct MCV MCH MCHC RDW Std Deviation RDW Coeff of Hari Plt Count MPV Immature Gran % (Auto) Neut % (Auto) Lymph % (Auto) [place] % (Auto) Eos % (Auto) Baso % (Auto) Immature Gran # (Auto) Neut # (Auto) Lymph # (Auto) [place] # (Auto) Eos # (Auto) Baso # (Auto) Dohle Bodies Echinocytes PT INR APTT PTT Ratio Sample Site POC pH POC pCO2 POC pO2 POC HCO3 POC Total CO2 POC Base Excess POC ABG O2 Sat Josr Test O2 Delivery Device Sodium Potassium Chloride Carbon Dioxide Anion Gap BUN Creatinine Est Cr Clr Drug Dosing Est GFR ( Amer) Est GFR (Non-Af Amer) BUN/Creatinine Ratio Glucose POC Glucose 91 Calcium Phosphorus Magnesium Medications Administered Current Inpatient Medications Albuterol (Duoneb) 3 ml INH Q4H PRN PRN Reason: Dyspnea Stop: 01/11/19 17:28 Aspirin (Aspirin Chew) 81 mg PO DAILY [facility] Stop: 01/12/19 08:59 Last Admin: 12/15/18 10:03 Dose: Not Given Documented by: Atorvastatin Calcium (Lipitor) 40 mg PO QAM [facility] Stop: 01/12/19 08:59 Last Admin: 12/15/18 10:03 Dose: Not Given Documented by: Bisacodyl (Dulcolax) 10 mg IA DAILY PRN PRN Reason: Constipation Stop: 01/11/19 17:28 Dextrose (Dextrose 50%) 25 - 50 ml IV UD PRN; Protocol PRN Reason: Hypoglycemia Protocol Stop: 01/11/19 17:28 Glucagon (Glucagen) 1 mg SQ UD PRN; Protocol PRN Reason: Hypoglycemia Protocol Stop: 01/11/19 17:28 Glucose (Glucose 40%) 15 - 30 gm PO UD PRN; Protocol PRN Reason: Hypoglycemia Protocol Stop: 01/11/19 17:28 Glucose (Dex4 Glucose) 4 - 8 tabs PO UD PRN; Protocol PRN Reason: Hypoglycemia Protocol Stop: 01/11/19 17:28 Heparin Sodium (Beef Lung) (Heparin Sod 10 Unit/Ml Flush) 5 ml FLUSH PRN PRN PRN Reason: Flush Stop: 01/14/19 00:24 Parenteral Electrolytes (Normosol-R) 1,000 mls @ 80 mls/hr IV .[id number] [facility] Stop: 01/11/19 17:28 Last Admin: 12/15/18 11:16 Dose: 80 mls/hr Documented by: Famotidine 20 mg/ Syringe 5 mls @ 2.5 mls/min IV Q12H [facility] Stop: 01/11/19 19:59 Last Admin: 12/15/18 09:54 Dose: 2.5 mls/min Documented by: Folic Acid 1 mg/ Syringe 10 mls @ 5 mls/min IV QAM [facility] Stop: 01/12/19 08:59 Last Admin: 12/15/18 09:55 Dose: 5 mls/min Documented by: Thiamine HCl 100 mg/ Syringe 10 mls @ 2 mls/hr IV Q24H [facility] Stop: 01/12/19 17:59 Last Admin: 12/15/18 18:22 Dose: 2 mls/hr Documented by: Heparin Sodium/Dextrose (Heparin Sodium/Dextrose) 25,000 units in 500 mls @ 25 mls/hr IV .Q20H [facility]; Protocol Stop: 01/11/19 18:29 Last Titration: 12/15/18 19:11 Dose: 1,250 units/hr, 25 mls/hr Documented by: Doxycycline Hyclate 100 mg/ (Dextrose) 110 mls @ 50 mls/hr IV BID [facility] Stop: 12/20/18 20:59 Last Infusion: 12/15/18 12:10 Dose: Infused Documented by: Ceftriaxone Sodium 2,000 mg/ (Dextrose) 50 mls @ 100 mls/hr IV Q24H [facility] Stop: 12/20/18 09:59 Last Infusion: 12/15/18 11:05 Dose: Infused Documented by: Insulin Aspart (Novolog Flexpen) 0 units SC Q6 [facility] Stop: 01/11/19 18:59 Last Admin: 12/15/18 18:22 Dose: Not Given Documented by: Lorazepam (Ativan) 1 mg PO ONE PRN; Protocol PRN Reason: EtoH Withdrawal AWSS 6-10 Miscellaneous (Carbohydrates For Hypoglycemia) 15 - 30 gm PO UD PRN PRN Reason: Hypoglycemia Treatment Stop: 01/11/19 17:28 Miscellaneous Information (Consult Glycemic Management Pharmacy) 1 ea N/A UD IA N; Protocol PRN Reason: Consult Stop: 01/11/19 18:05 Polyethylene Glycol (Miralax Powder Packet) 17 gm PO DAILY PRN PRN Reason: Constipation Stop: 01/11/19 17:28
[2018-12-15] MEDS: METOPROLOL TARTRATE 1 MG/ML VIAL IV STA ×2 (21:44→21:47)
[2018-12-15] MEDS ORDERED: SODIUM CHLORIDE 0.9% 1000ML 500 ML IV ONE (21:46)
[2018-12-15] MEDS: LORazepam 1 MG/2 ML VIAL IV PRN (22:07)
[2018-12-15] MEDS ORDERED: dilTIAZem HCl 5 MG/ML 5 ML VIAL IV STA (22:29)
[2018-12-15] MEDS ORDERED: ALBUMIN 5% 250 ML IV STA (22:40)
[2018-12-16] MEDS: POTASSIUM CHLORIDE / WTR 10 MEQ/100 ML PLCT IV SCH ×2 (00:25→01:17)
[2018-12-16] MEDS: NORMOSOL-R 1,000 ML IV SCH ×3 (00:31→13:31)
[2018-12-16] MEDS: INSULIN ASPART 100 UNITS/ML 3 ML PEN SC SCH ×3 (00:35→12:34)
[2018-12-16] MEDS ORDERED: dilTIAZem HCl 5 MG/ML 5 ML VIAL IV STA (00:49)
[2018-12-16] MEDS ORDERED: NORMOSOL-R 1,000 ML IV SCH (01:00)
[2018-12-16] MEDS ORDERED: LABETALOL HCL IV 5 MG/ML 20ML IV STA (02:19)
[2018-12-16] MEDS ORDERED: LABETALOL HCL IV 5 MG/ML 20ML IV ONE (02:23)
[2018-12-16] MEDS: HEPARIN SODIUM/DEXTROSE 25,000 UNITS/500 ML BAG IV SCH (05:46)
[2018-12-16 06:56] LABS: Partial Thromboplastin Ratio 1.9
[2018-12-16 07:14] LABS: Partial Thromboplastin Time 51.1 Seconds (21.0-31.0)
[2018-12-16] MEDS: ASPIRIN 81 MG CHEW PO SCH (07:42)
[2018-12-16] MEDS: ATORVASTATIN 40 MG TAB PO SCH (07:42)
[2018-12-16] MEDS: DOXYCYCLINE HYCLATE 100 MG in DEXTROSE 5% 100 ML IV SCH ×2 (07:56→20:55)
[2018-12-16] MEDS: FOLIC ACID 1 MG in SYRINGE 9.8 ML IV SCH (07:57)
[2018-12-16] MEDS: FAMOTIDINE 20 MG in SYRINGE 3 ML IV SCH ×2 (08:21→20:55)
[2018-12-16] MEDS: cefTRIAXone SODIUM 2,000 MG in DEXTROSE 5% 50 ML IV SCH (10:41)
[2018-12-16] MEDS ORDERED: METOPROLOL TARTRATE 1 MG/ML VIAL IV SCH ×2 (12:00→18:00)
[2018-12-16] MEDS ORDERED: METOPROLOL TARTRATE 1 MG/ML VIAL IV STA (12:36)
[2018-12-16] MEDS ORDERED: AMIODARONE IV BOLUS / DRIP IV STA ×2 (13:45→20:19)
[2018-12-16] MEDS ORDERED: AMIODARONE / D5W 150 MG/100 ML BAG IV STA ×2 (13:45→20:57)
[2018-12-16] MEDS ORDERED: AMIODARONE / D5W 360 MG/200 ML BAG IV SCH (13:55)
--- NOTE | 2018-12-16 14:22 | Hospitalist Progress Note ---
Date of Service December 16, 2018 Assessment & Plan (1) Hypovolemic shock: 62 yo female with history of alcohol abuse, mild dementia, afib, liver disease who admitted on november with confusion, afib with RVR, dyspnea and agitation. was hypotensive at that time and was subsequently cardioverted, successfully, back to sinus rhythm. was havign acute renal failure, with Cr was markedly elevated at 4.7, baseline was 1.0, resolved was evidence of metabolic acidosis. was admitted to the ICU, intubated for airway protection and was extubated and then transferred to PCU, Today's blood pressure has been on 110 has been stable, (2) Metabolic acidosis: resolved, pH was 7.39 most recently was due to lactic acidosis and renal failure, both of which adequately treated (3) TERRY (acute kidney injury): Acute kidney failure likely due to dehydration and hypotension no signs of septic shock Resolved, Cr down to 0.9, making adequate urine, on fluids due to no PO intake (4) Acute respiratory failure: extubated 12/13 in the evening breathing stable on 2L NC no distress, lungs clear (5) Atrial fibrillation with RVR: required cardioversion in the ED due to hemodynamic instability now is A. fib with RVR again, was tried Cardizem and Lopressor, but IV seems does not help, typically on Coreg and Xarelto prior to admission,, unsure if she was actually taking at home echo is normal continue heparin gtt for anticoagulation for stroke prevention for now Discussed with 911 operator, start amiodarone drip, (6) Alcohol dependence: h/o such, per family has not been drinking alcohol for two years ETOH negative on admission, has been 4 days, will watch for signs and symptoms of alcohol withdrawal, no current signs of withdrawal, will watch (7) Neurocognitive disorder: per family, has alcohol induced dementia, needs cared for by started drinking again and was neglecting care of the sister, who is POA, has thought that she may require placement in SNF her cognitive status has been declining may need placement on discharge, CM consulted Continue supportive care watch for signs and symptoms of alcohol withdrawal, hopefully can start some oral intake tomorrow (8) UTI (urinary tract infection): urine culture - Klebsiella, perkins sensitive continue Rocephin, stop Doxycycline Subjective Was having A. fib with rapid ventricular response this morning, which seems not help with IV Lopressor , talked to 911 operator, start amiodarone drip, Patient was yelling and was reporting abdominal pain, later she had a big amount of stool, when I seing her in the second time, she reported no more abdominal pain, she looks uncomfortable and pale Review of Systems Review of Systems: Unobtainable due to reduced consciousness Laboratory Results - last 24 hr Patient seems restless, conversational, orientated to name but not birthday not place, Patient is afebrile, Review of system is limited because of still confused 12/15/18 12/16/18 12/16/18 18:11 00:35 05:59 APTT PTT Ratio POC Glucose 91 99 109 H 12/16/18 12/16/18 12/16/18 06:15 07:24 10:57 APTT 51.1 H* PTT Ratio 1.9 POC Glucose 115 H 131 H Physical Exam Physical Exam: Looks confused, restless, answer simple questions, well developed, well nourished and + obese PERRL, conjunctivae normal, anicteric sclerae Nose: no nasal discharge Mouth: mild Dry mucous membranes poor dementia, trachea midline, no thyromegaly normal respiratory effort, lungs clear to auscultation, occasional wheezing, no rhonchi, irr , HTR >140, no murmur, no edema normal bowel sounds, soft, nontender, no hepatosplenomegaly Head/Neck/Chest: normocephalic and head atraumatic Extremities: move all extremities, no cyanosis and no clubbing no rashes, warm and dry CN's II-XI intact bilaterally and moves all extremities; no focal motor deficits Orientation: Only orientated to herself,'s name, + not oriented to person, + not oriented to place and + not oriented to time Apperance: + disheveled Results & Data Vital Signs (Past 12 Hours) Vital Signs Temp Pulse Pulse Pulse Resp BP BP 12/16/18 12:46 160 H 104/70 12/16/18 11:33 36.5 C 117 H 21 12/16/18 10:19 130 H 114/77 12/16/18 07:00 103 H 12/16/18 06:47 36.8 C 125 H 20 108/72 12/16/18 04:30 37.1 C 107 H 20 83/51 L 12/16/18 03:12 119 H 21 97/67 L 12/16/18 02:31 124 H 98/54 L 12/16/18 02:29 132 H 108/74 BP Pulse Ox 12/16/18 12:46 12/16/18 11:33 102/70 89 L 12/16/18 10:19 12/16/18 07:00 12/16/18 06:47 97 12/16/18 04:30 99 12/16/18 03:12 98 12/16/18 02:31 12/16/18 02:29 Laboratory Results - last 24 hr 12/15/18 12/16/18 12/16/18 18:11 00:35 05:59 APTT PTT Ratio POC Glucose 91 99 109 H 12/16/18 12/16/18 12/16/18 06:15 07:24 10:57 APTT 51.1 H* PTT Ratio 1.9 POC Glucose 115 H 131 H
[2018-12-16 15:18] LABS: Albumin Globulin Ratio 0.4 (0.9-2); Albumin Level 1.6 gm/dl (3.4-5.0); Bilirubin,Total 0.3 mg/dl (0.2-1); Calcium 8.1 mg/dl (8.5-10.1); Creatinine Clr Calc Pharmacy 74.4 ml/min; Est GFR (African American) 84.5; Est GFR (Non-African American) 72.9; Globulin 4.3 gm/dl (2.5-4.0); Magnesium 1.4 mg/dl (1.8-2.4); Total Protein 5.9 gm/dl (6.4-8.2)
[2018-12-16] MEDS ORDERED: SUCCINYLCHOLINE CHLORIDE 20 MG/ML 10 ML VIAL IV ONE (15:23)
[2018-12-16] MEDS ORDERED: ETOMIDATE 2 MG/ML 20 ML VIAL IV ONE (15:23)
[2018-12-16] MEDS ORDERED: LORazepam 2 MG/4 ML VIAL IV ONE (15:23)
[2018-12-16] MEDS ORDERED: VECURONIUM BROMIDE 10 MG VIAL IV ONE (15:23)
[2018-12-16] MEDS ORDERED: SODIUM CHLORIDE 0.9% INJ 10 ML VIAL IV ONE (15:23)
[2018-12-16 16:38] LABS: Cdiff Antigen Positive
[2018-12-16 16:40] LABS: Cdiff Toxin A+B Negative Cdiff Toxin (Negative)
[2018-12-16 17:14] LABS: Potassium 4.6 mmol/L (3.5-5.1)
[2018-12-16 17:19] LABS: Phosphorus 4.1 mg/dl (2.5-4.9)
[2018-12-16] MEDS: THIAMINE HCL 100 MG in SYRINGE 9 ML IV SCH (17:42)
[2018-12-16] MEDS ORDERED: DIGOXIN 250 MCG in SYRINGE 9 ML IV STA (19:07)
[2018-12-16] MEDS: AMIODARONE / D5W 360 MG/200 ML BAG IV SCH (19:19)
[2018-12-16] MEDS: LORazepam 1 MG/2 ML VIAL IV PRN ×2 (20:22→21:50)
[2018-12-16] MEDS ORDERED: LORazepam 2 MG/4 ML VIAL IV STA (21:58)
[2018-12-17] MEDS ORDERED: ALBUMIN 5% 250 ML IV SCH (00:15)
[2018-12-17] MEDS: NORMOSOL-R 1,000 ML IV SCH ×2 (02:23→11:41)
[2018-12-17] MEDS: HEPARIN SODIUM/DEXTROSE 25,000 UNITS/500 ML BAG IV SCH (02:24)
[2018-12-17] MEDS: AMIODARONE / D5W 360 MG/200 ML BAG IV SCH (02:24)
[2018-12-17 04:19] LABS: Hematocrit (blood only) 29.8 % (37-47); Hemoglobin 9.8 g/dL (12.0-16.0); Mean Corpuscular Volume 87.6 fL (80-100); Mean Platelet Volume 9.5 fL (7.4-10.4); Platelet Count 222 K/uL (130-400); RDW Coefficient of Variation 16.1 % (11.5-14.5); RDW Standard Deviation 52.1 fL (36.4-46.3); White Blood Count 7.16 K/uL (4.8-10.8)
[2018-12-17 04:20] LABS: Mean Corpuscular Hgb Conc 32.9 g/dL (32-36)
[2018-12-17] MEDS ORDERED: ALBUMIN 25% 50 ML with FUROSEMIDE 40 MG IV ONE ×2 (04:22→06:16)
[2018-12-17 04:34] LABS: iSTAT Allen Test Pass; iSTAT Arterial Blood Gas HCO3 18 meg/L (19-24); iSTAT Arterial Blood Gas pCO2 34 mmHg (35-46); iSTAT Arterial Blood Gas pH 7.32 (7.35-7.45); iSTAT Carbon Dioxide 19 mEq/l (24-31); iSTAT Site R Radial
[2018-12-17 04:40] LABS: BUN Creatinine Ratio 11.2 (10-20); Calcium 8.2 mg/dl (8.5-10.1); Creatinine Clr Calc Pharmacy 54.8 ml/min; Est GFR (African American) 58.4; Est GFR (Non-African American) 50.4; Magnesium 1.6 mg/dl (1.8-2.4); Potassium 4.5 mmol/L (3.5-5.1)
[2018-12-17 04:41] LABS: Partial Thromboplastin Ratio 1.8
[2018-12-17 04:48] LABS: Albumin Globulin Ratio 0.4 (0.9-2); Bilirubin,Total 0.4 mg/dl (0.2-1); Globulin 4.5 gm/dl (2.5-4.0); Total Protein 6.5 gm/dl (6.4-8.2)
[2018-12-17 04:49] LABS: Partial Thromboplastin Time 48.7 Seconds (21.0-31.0)
[2018-12-17 05:05] LABS: Basophils # (auto) 0.01 K/uL (0-0.2); Basophils % (auto) 0.1 %; Echinocytes 1+; Immature Granulocytes # (auto) 0.06 K/uL (0.00-0.02); Immature Granulocytes % (auto) 0.8 %; Lymphocytes # (auto) 0.59 K/uL (1.2-3.4); Lymphocytes % (auto) 8.2 %; Monocytes # (auto) 0.36 K/uL (0.11-0.59); Neutrophils # (auto) 6.14 K/uL (1.4-6.5); Neutrophils % (auto) 85.9 %; Toxic Vacuolation 1+
--- NOTE | 2018-12-17 06:33 | XRay Report ---
XR chest 1V portable CLINICAL HISTORY: Respiratory failure COMPARISON STUDY: 12/13/2018 FINDINGS: The heart is enlarged. There is been interval removal of the endotracheal tube nasogastric tube and right internal jugular central venous catheter. There are extensive progressive bilateral pu lmonary airspace opacities. Trace pleural effusions are suspected.[There is a triangular radiopaque d ensity within the left upper quadrant, possibly correlating to the history of a swallowed tooth. IMPRESSION: Progressive extensive bilateral pulmonary airspace opacities. Interval removal of the end otracheal tube nasogastric tube and right internal jugular central venous catheter. Electronically signed by: Kg Doran M.D. 12/17/2018 6:31 AM
--- NOTE | 2018-12-17 06:37 | CT Scan Report ---
CT head/brain wo con CLINICAL HISTORY: 63 years-old Female with altered mental status. Acutely altered mental status TECHNIQUE: Multiple axial CT images of the head were obtained without contrast. A dose lowering tech nique was utilized adhering to the principles of ALARA. CT DOSE: 614.27 mGy.cm COMPARISON: CT head 12/12/2018. FINDINGS: No acute intracranial hemorrhage, midline shift, intracranial mass, hydrocephalus, territorial ischem ia or abnormal extra-axial collection. Age-related involutional changes. Patchy white matter hypodens ities suggests chronic microvascular ischemic changes. Study is motion degraded. Cerebral vascular ca lcifications are noted. The calvarium is intact. The paranasal sinuses, mastoid air cells, and middle ear cavities are clear . IMPRESSION: Motion degraded exam without acute intracranial abnormality. The above report was generated using voice recognition software. It may contain grammatical, syntax o r spelling errors. Electronically signed by: Serjio Corbin M.D. 12/17/2018 6:35 AM
[2018-12-17] MEDS: MAGNESIUM SULFATE / D5W 1 GM/100 ML BAG IV SCH ×2 (07:14→08:25)
[2018-12-17] MEDS ORDERED: MAGNESIUM SULFATE / D5W 1 GM/100 ML BAG IV SCH (08:30)
[2018-12-17] MEDS: FAMOTIDINE 20 MG in SYRINGE 3 ML IV SCH ×2 (08:35→22:18)
[2018-12-17] MEDS: ASPIRIN 81 MG CHEW PO SCH (08:40)
[2018-12-17] MEDS: ATORVASTATIN 40 MG TAB PO SCH (08:40)
[2018-12-17] MEDS: DOXYCYCLINE HYCLATE 100 MG in DEXTROSE 5% 100 ML IV SCH (08:40)
--- NOTE | 2018-12-17 09:04 | Cardiology Consultation ---
Date of Consultation December 17, 2018 Assessment & Plan (1) Atrial fibrillation: Patient is a history of atrial fibrillation and presented in atrial fibrillation with rapid ventricular response. The chronicity of her AFib was unclear at that time but due to some hemodynamic instability she underwent emergent cardioversion. She was able to maintain sinus rhythm for brief period but likely due to changing volume status and declining clinical condition she reverted back to atrial fibrillation approximately 36 hours ago. Hemodynamically she appears to be stable with the exception of a high heart rate. Her mental status is not adequate to assess for any symptoms related to the arrhythmia. Initial attempts at rate control were ineffective. She has not been able to take oral medications. It is unclear whether she was taking any oral medications on an outpatient basis. She was started on amiodarone infusion yesterday without significant effect currently. I suspect will have great difficulty controlling her rate or reverting her to a sustained sinus rhythm given her current other comorbidities. Currently she is quite agitated, appears encephalopathic and also has evidence of hepatic and pulmonary dysfunction. I think we can continue the amiodarone infusion. I will attempt rate control with an esmolol infusion primarily for it is short-acting affect and other benefits associated with beta-blockade in her circumstance. However, this is ineffectual we may need to switch back to the diltiazem infusion. I think the main barrier to adequate rate control is her declining clinical status and other comorbidities. He has currently been maintained on heparin infusion. She certainly meets criteria for systemic anticoagulation, but she has also presented with significant bleeding and anemia in the past. I think we can make a recommendation for ongoing systemic anticoagulation as we follow her clinical course. Present on Admission?: Yes (2) Cardiomyopathy, nonischemic: Patient has a history of a nonischemic cardiomyopathy that appears to have improved. Her medical compliance is uncertain, but her echocardiogram at the time of admission revealed relatively preserved LV systolic function. She was dehydrated upon presentation but currently appears to be volume overloaded. She has evidence of peripheral edema in her lung examination demonstrates pulmonary infiltrates. I think administration of a diuretic today will improve her pulmonary status and perhaps even her overall heart rates. Ideally she will be back on beta-blockade once she is taking oral medications. She was previously maintained on an aldosterone antagonist which likely also has benefits in the setting of her alcoholism and potential liver disease. Present on Admission?: Yes History of Present Illness Reason for Consultation: Atrial fibrillation Requesting Physician: Jessenia Attending Physician: Dax Ruelas MD, PhD, PENDING S[facility] TO [facility] History of Present Illness Patient is a 63-year-old woman with known history of a nonischemic cardiomyopathy and paroxysmal atrial fibrillation who was brought to [facility] by a relative for evidence of dyspnea. Patient was in atrial fibrillation at the time of presentation in due to some hemodynamic instability underwent emergent cardioversion. Her mentation was poor and she underwent intubation at that time with transfer to the intensive care unit. She was also in acute renal failure. She has little maintained sinus rhythm for a couple of days but recently transition back into atrial fibrillation and has associated high ventricular rates. Initially, the patient was felt to be markedly dehydrated and she underwent aggressive rehydration with improvement in her renal function and hemodynamics. Her mentation continues to be poor. She was successfully extubated and transferred to the telemetry unit. At the time of my evaluation patient was able to state her name, but did not f ollow other commands. She is unable to cooperate with the examination. According to the nursing staff she has been agitated throughout the course of the evening. Allergies Allergy/AdvReac Type Severity Reaction Status Date / Time No Known Allergies Allergy Verified 12/12/18 17:42 Home Medications Home Medications Medication Instructions Recorded Confirmed Type aspirin 81 mg PO DAILY 12/12/18 12/12/18 History atorvastatin 40 mg PO DAILY 12/12/18 12/12/18 History calcium carbonate [Tums] 200 mg PO DIRECTED PRN 12/12/18 12/12/18 History carvedilol 3.125 mg PO QAM 12/12/18 12/12/18 History carvedilol 12.5 mg PO BIDM 12/12/18 12/12/18 History escitalopram oxalate 10 mg PO DAILY 12/12/18 12/12/18 History ferrous sulfate 325 mg PO BID 12/12/18 12/12/18 History fluticasone propionate 2 spray INTRANASAL DAILY 12/12/18 12/12/18 History folic acid 1 mg PO DAILY 12/12/18 12/12/18 History magnesium oxide 400 mg PO BID 12/12/18 12/12/18 History multivitamin,ul-ekiq-ytpfkcqu 1 tab PO DAILY 12/12/18 12/12/18 History [Therems-M] omeprazole 20 mg PO DAILY 12/12/18 12/12/18 History rivaroxaban [Xarelto] 15 mg PO PM 12/12/18 12/12/18 History spironolactone 25 mg PO DAILY 12/12/18 12/12/18 History thiamine HCl (vitamin B1) [Vitamin 50 mg PO BID 12/12/18 12/12/18 History B-1] Patient History Medical History Trimalleolar fracture of left ankle (Resolved) Dislocation of ankle joint (Resolved) Trimalleolar fracture of right ankle (Resolved) GERD (gastroesophageal reflux disease) (Chronic) Hyperlipidemia (Chronic) snf (current) use of 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 (Chronic) Alcohol dependence (Chronic) Acute liver disease (Chronic) Hypotension (Resolved) Rapid atrial fibrillation (Chronic) High anion gap metabolic acidosis Family History Other Diabetes Hypertension Social History Preferred Language: Guyanese Communication Ability: Unable 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 She is alert and only answered to her name. Otherwise uncooperative. HEENT: Sclerae are anicteric. Pupils mildly dilated. Extraocular movements were intact. Poor dentition. Neuro: Could not be evaluated due to poor cooperation. Neck: Examination of the submandibular region did not reveal any significant lymphadenopathy. Bandage on right neck. Carotids are palpable bilaterally and free of bruits on auscultation. There was no evidence of jugular venous distention. The thyroid was not enlarged. Lungs: There were crackles in the lung apices. She had expiratory wheezing. Cardiac: Irregular and tachycardic. No murmurs. Abdomen: Mildly distended but nontender. No caput. Extremities: Patient has bilateral radial pulses that are equal in intensity. There is no evidence cyanosis or clubbing. She had some edema in the hands bilaterally but no edema in the lower extremities. y. Skin: There are no rashes noted on examination today. Multiple ecchymoses. Results & Data Vital Signs (Past 12 Hours) Vital Signs Temp Pulse Resp BP BP Pulse Ox 12/17/18 07:02 36.9 C 162 H 24 136/91 97 12/17/18 03:24 37.8 C H 150 H 25 H 109/50 L 90 12/17/18 00:33 36.5 C 156 H 22 85/53 L 122/86 92 Laboratory Results Abnormal Lab Results 12/16/18 12/16/18 12/16/18 10:57 14:40 16:11 WBC RBC Hgb Hct MCV MCH MCHC RDW Std Deviation RDW Coeff of Hari Plt Count MPV Immature Gran % (Auto) Neut % (Auto) Lymph % (Auto) [place] % (Auto) Eos % (Auto) Baso % (Auto) Immature Gran # (Auto) Neut # (Auto) Lymph # (Auto) [place] # (Auto) Eos # (Auto) Baso # (Auto) Toxic Vacuolation Echinocytes APTT PTT Ratio Sample Site POC pH POC pCO2 POC pO2 POC HCO3 POC Total CO2 POC Base Excess POC ABG O2 Sat Josr Test O2 Delivery Device Sodium 139 Potassium 4.6 D Chloride 110 H Carbon Dioxide 20 L Anion Gap 15.0 H BUN 11 Creatinine 0.84 Est Cr Clr Drug Dosing 74.4 Est GFR ( Amer) 84.5 Est GFR (Non-Af Amer) 72.9 BUN/Creatinine Ratio 13.0 Glucose 127 H POC Glucose 131 H 136 H Calcium 8.1 L Phosphorus 4.1 D Magnesium 1.4 L Total Bilirubin 0.3 AST 41 H ALT 39 Alkaline Phosphatase 113 Ammonia Total Protein 5.9 L Albumin 1.6 L Globulin 4.3 H Albumin/Globulin Ratio 0.4 L Specimen Hemolysis Stl C. diff Tox B Gene Stl C.difficile Tox A&B 12/16/18 12/16/18 12/16/18 20:55 Unknown 23:59 WBC RBC Hgb Hct MCV MCH MCHC RDW Std Deviation RDW Coeff of Hari Plt Count MPV Immature Gran % (Auto) Neut % (Auto) Lymph % (Auto) [place] % (Auto) Eos % (Auto) Baso % (Auto) Immature Gran # (Auto) Neut # (Auto) Lymph # (Auto) [place] # (Auto) Eos # (Auto) Baso # (Auto) Toxic Vacuolation Echinocytes APTT PTT Ratio Sample Site POC pH POC pCO2 POC pO2 POC HCO3 POC Total CO2 POC Base Excess POC ABG O2 Sat Josr Test O2 Delivery Device Sodium Potassium Chloride Carbon Dioxide Anion Gap BUN Creatinine Est Cr Clr Drug Dosing Est GFR ( Amer) Est GFR (Non-Af Amer) BUN/Creatinine Ratio Glucose POC Glucose 134 H 166 H Calcium Phosphorus Magnesium Total Bilirubin AST ALT Alkaline Phosphatase Ammonia Total Protein Albumin Globulin Albumin/Globulin Ratio Specimen Hemolysis Stl C. diff Tox B Gene Positive Cdiff Gene A Stl C.difficile Tox A&B Negative Cdiff Toxin 12/17/18 12/17/18 12/17/18 04:10 04:10 04:10 WBC 7.16 RBC 3.40 L Hgb 9.8 L Hct 29.8 L MCV 87.6 MCH 28.8 MCHC 32.9 RDW Std Deviation 52.1 H RDW Coeff of Hari 16.1 H Plt Count 222 MPV 9.5 Immature Gran % (Auto) 0.8 Neut % (Auto) 85.9 Lymph % (Auto) 8.2 [place] % (Auto) 5.0 Eos % (Auto) 0.0 Baso % (Auto) 0.1 Immature Gran # (Auto) 0.06 H Neut # (Auto) 6.14 Lymph # (Auto) 0.59 L [place] # (Auto) 0.36 Eos # (Auto) 0.00 Baso # (Auto) 0.01 Toxic Vacuolation 1+ Echinocytes 1+ APTT 48.7 H* PTT Ratio 1.8 Sample Site POC pH POC pCO2 POC pO2 POC HCO3 POC Total CO2 POC Base Excess POC ABG O2 Sat Josr Test O2 Delivery Device Sodium 136 Potassium 4.5 Chloride 107 Carbon Dioxide 19 L Anion Gap 10.0 BUN 13 Creatinine 1.14 D Est Cr Clr Drug Dosing 54.8 Est GFR ( Amer) 58.4 Est GFR (Non-Af Amer) 50.4 BUN/Creatinine Ratio 11.2 Glucose 116 H POC Glucose Calcium 8.2 L Phosphorus Magnesium 1.6 L Total Bilirubin 0.4 AST 1192 H ALT 750 H Alkaline Phosphatase 151 H Ammonia Total Protein 6.5 Albumin 2.0 L Globulin 4.5 H Albumin/Globulin Ratio 0.4 L Specimen Hemolysis Stl C. diff Tox B Gene Stl C.difficile Tox A&B 12/17/18 12/17/18 12/17/18 04:20 06:16 08:26 WBC RBC Hgb Hct MCV MCH MCHC RDW Std Deviation RDW Coeff of Hari Plt Count MPV Immature Gran % (Auto) Neut % (Auto) Lymph % (Auto) [place] % (Auto) Eos % (Auto) Baso % (Auto) Immature Gran # (Auto) Neut # (Auto) Lymph # (Auto) [place] # (Auto) Eos # (Auto) Baso # (Auto) Toxic Vacuolation Echinocytes APTT PTT Ratio Sample Site R Radial POC pH 7.32 L POC pCO2 34 L POC pO2 79 L POC HCO3 18 L POC Total CO2 19 L POC Base Excess -8.0 POC ABG O2 Sat 94.0 Josr Test Pass O2 Delivery Device Other Sodium Potassium Chloride Carbon Dioxide Anion Gap BUN Creatinine Est Cr Clr Drug Dosing Est GFR ( Amer) Est GFR (Non-Af Amer) BUN/Creatinine Ratio Glucose POC Glucose 126 H Calcium Phosphorus Magnesium Total Bilirubin AST ALT Alkaline Phosphatase Ammonia 40.8 H Total Protein Albumin Globulin Albumin/Globulin Ratio Specimen Hemolysis Stl C. diff Tox B Gene Stl C.difficile Tox A&B Diagnostic Findings Echocardiogram performed during this admission revealed low normal LV systolic function without significant valvular abnormality. (1) Atrial fibrillation Atrial fibrillation type: unspecified Qualified Code(s): I48.91 - Unspecified atrial fibrillation
[2018-12-17] MEDS ORDERED: FUROSEMIDE 40 MG/4 ML VIAL IV STA (09:24)
--- NOTE | 2018-12-17 09:50 | Palliative Care Progress Note ---
Date of Service December 17, 2018 Assessment & Plan (1) Code status needs review: -62 year old female patient with PMH previous alcohol dependence, GERD, acute liver injury, and reported medical non-compliance, presented to the hospital a few days ago at the request of her niece due to increased exertional dyspnea. In ED, patient found to be in rapid afib, was cardioverted to NSR. Patient also with acute kidney injury, acute metabolic encephalopathy, and sepsis possibly 2/2 UTI, so she was intubated for safety and admitted to the ICU. Patient required pressors for blood pressure support as well. Creatinine was 4.27 on admission 2/2 severe dehydration, down to 1.65 today. Per patient's family, there is a long-standing history of alcohol abuse, poor hygiene, and medical non-compliance. Patient was last in the hospital in the summer of 2017 with acute kidney injury. Patient was extubated and she was transferred to room 243. -I walked into the patient's room, and she was diaphragmatic breathing on 5L oxymask and unresponsive. She was not able to open her eyes or respond to painfu l stimuli. -I spoke with the patient's nurse, Lenin, who advised that she did decline over the weekend and was in AFib with RVR and was placed on an Amiodarone gtt. A Heparin gtt, IVF, and Esmolol were all infusing. Pt did show response to Esmolo gtt and Dr. Malave indicated ok to D/C. -Previous conversation this past week was held with patient DEANNE, Aby, which indicated no CPR, but was comfortable with intubation again if needed. Pt B/P has been 60's/40's. -I initially spoke with Marisela, the patients niece, who indicated that she was on her way to the hospital to pickling tank operator the patients , Celestino, who was currently inpatient. -There is clear family dynamic with the patient POArias and the patients . -I spoke with the patients POA and indicated that we were placing her on a BiPAP mask, administering Lasix, etc and wanted to have a clear understanding of her goals of care for her sister since we would need to immediately entertain the idea of a transfer to the ICU should she want additional aggressive treatment. -The patient's sister stated that she would not want any escalation in care. She is OK with continuing BiPAP, but does NOT want intubation, an ICU transfer, invasive line placement, or inotropic drips. -We discussed comfort medications, which she is ok with us giving. We also agreed to stop non-essential po medications and IV maintenance fluids as her lungs auscultated with crackles. -Pt sister, Aby, lives in [place] and now will be driving to [facility] today to see her sister. She is aware that she could pass away prior to her arrival and she is ok with that, but would like us to continue with current treatment and discuss discontinuation when she arrives. -I did on a separate occasion, meet with the patient's and niece just outside the patients room to explain the above events and they both verbalized understanding that her condition was grave. -I did order Roxanol 5 mg PO/SL Q2 PRN for air hunger due to how much diaphragmatic breathing she was having and Atropine 1% 4gtts Q3 PRN for secretions. -Palliative care will follow as needed throughout hospitalization. (2) TERRY (acute kidney injury): (3) Altered mental status: -unresponsive (4) Atrial fibrillation: - Cardioversion 12/12 Subjective Patient unresponsive and not able to open her eyes or respond to painful stimuli Previous conversation this past week was held with patient Aby ALICEA, which indicated no CPR, but was comfortable with intubation again if needed. See A/P for further discussion leading to a transition to comfort measures. Pt , Celestino, currently hospitalized here and planning for discharge today. Please see A/P for further details. Review of Systems Review of Systems: Pt unable to participate in ROS due to unresponsiveness Physical Exam Physical Exam: Pt lying in bed in distress Constitutional: + acute distress, + ill appearing, + morbidly obese, + disheveled and + lethargic ENMT: external ear and nose normal, oropharynx normal Neck: trachea midline, no thyromegaly Respiratory: + respiratory distress and + grunting inspiratory and expiratory wheezes and crackles noted throughout bases Cardiovascular: Rate/Rhythm: + tachycardic (150-160's) Extremities: normal capillary refill and + edema (B/L +2 LE edema) Gastrointestinal (Abdomen): normal bowel sounds, soft, nontender, no hepatosplenomegaly Skin: no rashes, warm and dry Genitourinary: indwelling miguel in situ, andres output Results & Data Vital Signs (Past 12 Hours) Vital Signs Temp Pulse Resp BP BP Pulse Ox 12/17/18 07:02 36.9 C 162 H 24 136/91 97 12/17/18 03:24 37.8 C H 150 H 25 H 109/50 L 90 12/17/18 00:33 36.5 C 156 H 22 85/53 L 122/86 92 Time Spent Midlevel total time spent 100 minutes with > 50% of that time assessing the patient, discussing goals of care with patients POA and on multiple occasions (1) Atrial fibrillation Atrial fibrillation type: unspecified Qualified Code(s): I48.91 - Unspecified atrial fibrillation (2) Altered mental status Altered mental status type: unspecified Qualified Code(s): R41.82 - Altered mental status, unspecified
[2018-12-17] MEDS ORDERED: ESMOLOL / NSS 2,500 MG/250 ML BAG IV SCH (10:15)
--- NOTE | 2018-12-17 10:15 | Hospitalist Progress Note ---
Date of Service December 17, 2018 Assessment & Plan (1) Hypovolemic shock: 62 yo female with history of alcohol abuse, mild dementia, afib, liver disease who admitted on november with confusion, afib with RVR, dyspnea and agitation. was hypotensive at that time and was subsequently cardioverted, successfully, back to sinus rhythm. was havign acute renal failure, with Cr was markedly elevated at 4.7, baseline was 1.0, resolved was evidence of metabolic acidosis. was admitted to the ICU, intubated for airway protection and was extubated and then transferred to PCU, Today's condition significantly worse, with afib with RVR at 160's, RR 33's asso with confusion, decreased mental status. liver failure , discussed with DEANNE Badillo together with palliative care service, DEANNE want: no ICU transferring, DNI, DNR, no heroic methods such as invasive procedure, but ok labs, bipap, and medicine, and if she getting worse adn will allow her pass peaceful, POA ok of morphine, and atropin etc for comfort methods. At noon time patient's systolic blood pressure drop to 60s, after talking to patient's power of deputy county attorney, stop amiodarone drip and heparin drip, and planning for transfer to for medicine for comfort measures will order bipap, f/u abg, cont amio drip, f/u lasix, and oil field laborer input (2) Metabolic acidosis: , Possible from sepsis or from metabolic encephalopathy (3) TERRY (acute kidney injury): Acute kidney failure upon admission likely due to dehydration and hypotension Today's creatinine getting a little bit worse compared to yesterday which is supported possible hypovolemic kidney injury (4) Acute respiratory failure: Upon admission, there was acute respiratory failure, extubated 12/13 in the evening Her breathing stable on 2L NC yesterday, Because patient has significant lethargic and a little nonviable and wheezing and crackles, checked ABG, which shows mild acidosis, PCO2 32 PO2 77, (5) Atrial fibrillation with RVR: required cardioversion in the ED due to hemodynamic instability Yesterday he was having A. fib with RVR again, was tried Cardizem and Lopressor, but seems does not help for afib echo is normal Has been on heparin gtt for anticoagulation for stroke prevention, will discontinue after the goal of the care changed to POLYSOMNOGRAPHY TECHNOLOGIST amiodarone drip started yesterday, however he has not been well controlled, will discontinue after the goal of the care changed to POLYSOMNOGRAPHY TECHNOLOGIST (6) Alcohol dependence: h/o such, per family has not been drinking alcohol for two years ETOH negative on admission, has been 4 days, will watch for signs and symptoms of alcohol withdrawal (7) Neurocognitive disorder: per family, has alcohol induced dementia, needs cared for by started drinking again and was neglecting care of the sister, who is POA, Today significant worsening mental status examination in the above (8) UTI (urinary tract infection): urine culture - Klebsiella, perkins sensitive continue Rocephin, stop Doxycycline (9) Liver failure: With a significant elevated AST and ALT, AST much prominent and then AST, etiology likely because of hypovolemic shock, and A. fib with rapid ventricle response which caused a decreased cardiac output and resolving poor perfusion of end organs such as liver and kidney, other diagnosis is alcoholic hepatitis because of AST significant nausea and an ALT, difficult history of alcohol abuse, GI on the case, will continue supportive care comfort measures because of the goal of the care change (10) C. difficile diarrhea: Stool C. difficile positive with history of diarrhea, this condition may contribution to patient's significant worsening medical conditions, now is comfort measures only Patient will be transferred to [facility] for comfort measures only, palliative care input appreciated Subjective patient would not follow commands today she answered questions with "yes" she had some increased agitation this morning, got a bath and was then calm reviewed labs discussed with Dr. Cha will transfer to medical tele today could not get MRI brain, can't follow commands CR is 0.9, WBC is 8, Hb down to 9 urine culture with Klebsiella, perkins sensitive Review of Systems Review of Systems: All systems reviewed & are unremarkable except as noted in HPI & below Physical Exam Physical Exam: Agitated. lethargic , only orientated to her name. uncooperative. looks pale, and RR increased , abd breathing, HEENT: Sclerae are anicteric. Pupils mildly dilated. Extraocular movements were intact. Poor dentition. Neuro: Could not be evaluated due to poor cooperation. Neck: Bandage on right neck. Carotids are palpable bilaterally and free of bruits on auscultation. No JVD, The thyroid was not enlarged. Lungs: There were crackles in the lungs, asso with expiratory rales and wheezing. Cardiac: Irregular and tachycardic. No murmurs. Abdomen: Mildly distended but nontender. No caput. Extremities: Patient has bilateral radial pulses that are equal in intensity. There is no evidence cyanosis or clubbing. She had some edema in the hands bilaterally but no edema in the lower extremities. y. Skin: There are no rashes noted on examination today. Multiple ecchymoses. Results & Data Vital Signs (Past 12 Hours) Vital Signs Temp Pulse Resp BP BP Pulse Ox 12/17/18 07:02 36.9 C 162 H 24 136/91 97 12/17/18 03:24 37.8 C H 150 H 25 H 109/50 L 90 12/17/18 00:33 36.5 C 156 H 22 85/53 L 122/86 92 Laboratory Results - last 24 hr 12/16/18 12/16/18 12/16/18 14:40 16:11 20:55 WBC RBC Hgb Hct MCV MCH MCHC RDW Std Deviation RDW Coeff of Hari Plt Count MPV Immature Gran % (Auto) Neut % (Auto) Lymph % (Auto) [place] % (Auto) Eos % (Auto) Baso % (Auto) Immature Gran # (Auto) Neut # (Auto) Lymph # (Auto) [place] # (Auto) Eos # (Auto) Baso # (Auto) Toxic Vacuolation Echinocytes APTT PTT Ratio Sample Site POC pH POC pCO2 POC pO2 POC HCO3 POC Total CO2 POC Base Excess ABG pH ABG pCO2 ABG pO2 ABG HCO3 POC ABG O2 Sat ABG O2 Saturation ABG Base Excess Josr Test Barometric Pressure Oxygen Given O2 Delivery Device Sodium Potassium 4.6 D Chloride Carbon Dioxide Anion Gap 15.0 H BUN Creatinine Est Cr Clr Drug Dosing Est GFR ( Amer) Est GFR (Non-Af Amer) BUN/Creatinine Ratio Glucose POC Glucose 136 H 134 H Calcium Phosphorus 4.1 D Magnesium Total Bilirubin AST ALT Alkaline Phosphatase Ammonia Total Protein Albumin Globulin Albumin/Globulin Ratio Hep Bs Antigen Hepatitis C Antibody 12/16/18 12/17/18 12/17/18 23:59 04:10 04:10 WBC 7.16 RBC 3.40 L Hgb 9.8 L Hct 29.8 L MCV 87.6 MCH 28.8 MCHC 32.9 RDW Std Deviation 52.1 H RDW Coeff of Hari 16.1 H Plt Count 222 MPV 9.5 Immature Gran % (Auto) 0.8 Neut % (Auto) 85.9 Lymph % (Auto) 8.2 [place] % (Auto) 5.0 Eos % (Auto) 0.0 Baso % (Auto) 0.1 Immature Gran # (Auto) 0.06 H Neut # (Auto) 6.14 Lymph # (Auto) 0.59 L [place] # (Auto) 0.36 Eos # (Auto) 0.00 Baso # (Auto) 0.01 Toxic Vacuolation 1+ Echinocytes 1+ APTT 48.7 H* PTT Ratio 1.8 Sample Site POC pH POC pCO2 POC pO2 POC HCO3 POC Total CO2 POC Base Excess ABG pH ABG pCO2 ABG pO2 ABG HCO3 POC ABG O2 Sat ABG O2 Saturation ABG Base Excess Josr Test Barometric Pressure Oxygen Given O2 Delivery Device Sodium Potassium Chloride Carbon Dioxide Anion Gap BUN Creatinine Est Cr Clr Drug Dosing Est GFR ( Amer) Est GFR (Non-Af Amer) BUN/Creatinine Ratio Glucose POC Glucose 166 H Calcium Phosphorus Magnesium Total Bilirubin AST ALT Alkaline Phosphatase Ammonia Total Protein Albumin Globulin Albumin/Globulin Ratio Hep Bs Antigen Hepatitis C Antibody 12/17/18 12/17/18 12/17/18 04:10 04:20 06:16 WBC RBC Hgb Hct MCV MCH MCHC RDW Std Deviation RDW Coeff of Hari Plt Count MPV Immature Gran % (Auto) Neut % (Auto) Lymph % (Auto) [place] % (Auto) Eos % (Auto) Baso % (Auto) Immature Gran # (Auto) Neut # (Auto) Lymph # (Auto) [place] # (Auto) Eos # (Auto) Baso # (Auto) Toxic Vacuolation Echinocytes APTT PTT Ratio Sample Site R Radial POC pH 7.32 L POC pCO2 34 L POC pO2 79 L POC HCO3 18 L POC Total CO2 19 L POC Base Excess -8.0 ABG pH ABG pCO2 ABG pO2 ABG HCO3 POC ABG O2 Sat 94.0 ABG O2 Saturation ABG Base Excess Josr Test Pass Barometric Pressure Oxygen Given O2 Delivery Device Other Sodium 136 Potassium 4.5 Chloride 107 Carbon Dioxide 19 L Anion Gap 10.0 BUN 13 Creatinine 1.14 D Est Cr Clr Drug Dosing 54.8 Est GFR ( Amer) 58.4 Est GFR (Non-Af Amer) 50.4 BUN/Creatinine Ratio 11.2 Glucose 116 H POC Glucose 126 H Calcium 8.2 L Phosphorus Magnesium 1.6 L Total Bilirubin 0.4 AST 1192 H ALT 750 H Alkaline Phosphatase 151 H Ammonia Total Protein 6.5 Albumin 2.0 L Globulin 4.5 H Albumin/Globulin Ratio 0.4 L Hep Bs Antigen Hepatitis C Antibody 12/17/18 12/17/18 12/17/18 08:26 09:51 09:51 WBC RBC Hgb Hct MCV MCH MCHC RDW Std Deviation RDW Coeff of Hari Plt Count MPV Immature Gran % (Auto) Neut % (Auto) Lymph % (Auto) [place] % (Auto) Eos % (Auto) Baso % (Auto) Immature Gran # (Auto) Neut # (Auto) Lymph # (Auto) [place] # (Auto) Eos # (Auto) Baso # (Auto) Toxic Vacuolation Echinocytes APTT PTT Ratio Sample Site POC pH POC pCO2 POC pO2 POC HCO3 POC Total CO2 POC Base Excess ABG pH ABG pCO2 ABG pO2 ABG HCO3 POC ABG O2 Sat ABG O2 Saturation ABG Base Excess Josr Test Barometric Pressure Oxygen Given O2 Delivery Device Sodium 134 L Potassium 4.6 Chloride 104 Carbon Dioxide 17 L Anion Gap 13.0 H BUN 15 Creatinine 1.22 H Est Cr Clr Drug Dosing 51.2 Est GFR ( Amer) 53.8 Est GFR (Non-Af Amer) 46.5 BUN/Creatinine Ratio 12.1 Glucose 111 H POC Glucose Calcium 8.2 L Phosphorus Magnesium 2.3 Total Bilirubin 0.6 AST 2529 H ALT 1378 H Alkaline Phosphatase 162 H Ammonia 40.8 H Total Protein 6.3 L Albumin 2.2 L Globulin 4.1 H Albumin/Globulin Ratio 0.5 L Hep Bs Antigen Neg Hepatitis C Antibody Neg 12/17/18 12/17/18 10:13 11:37 WBC RBC Hgb Hct MCV MCH MCHC RDW Std Deviation RDW Coeff of Hari Plt Count MPV Immature Gran % (Auto) Neut % (Auto) Lymph % (Auto) [place] % (Auto) Eos % (Auto) Baso % (Auto) Immature Gran # (Auto) Neut # (Auto) Lymph # (Auto) [place] # (Auto) Eos # (Auto) Baso # (Auto) Toxic Vacuolation Echinocytes APTT PTT Ratio Sample Site POC pH POC pCO2 POC pO2 POC HCO3 POC Total CO2 POC Base Excess ABG pH 7.33 L ABG pCO2 32 L ABG pO2 77 L ABG HCO3 16 L POC ABG O2 Sat ABG O2 Saturation 92.6 ABG Base Excess -8.6 Josr Test Pos Barometric Pressure 737.3 Oxygen Given 5 L O2 Delivery Device Sodium Potassium Chloride Carbon Dioxide Anion Gap BUN Creatinine Est Cr Clr Drug Dosing Est GFR ( Amer) Est GFR (Non-Af Amer) BUN/Creatinine Ratio Glucose POC Glucose 129 H Calcium Phosphorus Magnesium Total Bilirubin AST ALT Alkaline Phosphatase Ammonia Total Protein Albumin Globulin Albumin/Globulin Ratio Hep Bs Antigen Hepatitis C Antibody
[2018-12-17] MEDS ORDERED: MoRPHine SULFATE 5 MG/0.25 ML UDP PO PRN (10:18)
[2018-12-17] MEDS: cefTRIAXone SODIUM 2,000 MG in DEXTROSE 5% 50 ML IV SCH (10:20)
[2018-12-17 10:24] LABS: HCO3 ABG 16 mmol/L (19-24); Oxygen Saturation ABG 92.6 % (90-95); PCO2 ABG 32 mmHg (35-46); PO2 ABG 77 mm/Hg (80-95); pH ABG 7.33 (7.35-7.45)
[2018-12-17 10:25] LABS: Allen Test Pos (Pos)
[2018-12-17] MEDS ORDERED: LEVALBUTEROL HCL 0.63 MG/3 ML NEB NEB STA (10:32)
[2018-12-17] MEDS ORDERED: IPRATROPIUM BROMIDE NEB SOLN 0.02% 2.5 ML VIAL NEB STA (10:35)
[2018-12-17 10:50] LABS: Albumin Level 2.2 gm/dl (3.4-5.0); BUN Creatinine Ratio 12.1 (10-20); Calcium 8.2 mg/dl (8.5-10.1); Creatinine Clr Calc Pharmacy 51.2 ml/min; Est GFR (African American) 53.8; Est GFR (Non-African American) 46.5; Magnesium 2.3 mg/dl (1.8-2.4); Potassium 4.6 mmol/L (3.5-5.1)
[2018-12-17 11:04] LABS: Hepatitis B Surface Antigen Neg (Neg)
[2018-12-17 11:13] LABS: Albumin Globulin Ratio 0.5 (0.9-2); Bilirubin,Total 0.6 mg/dl (0.2-1); Globulin 4.1 gm/dl (2.5-4.0); Total Protein 6.3 gm/dl (6.4-8.2)
[2018-12-17 11:32] LABS: Hepatitis C IgG 13Yrs+Old_Rflx Neg (Neg)
[2018-12-17] MEDS: FOLIC ACID 1 MG in SYRINGE 9.8 ML IV SCH (11:36)
--- NOTE | 2018-12-17 12:46 | Consultation Report ---
DATE OF CONSULTATION: 12/17/2018 GI CONSULT NOTE REASON FOR EVALUATION: Significantly elevated aminotransferases. 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 The patient presented to the hospital on December 12 with shortness of breath and confusion. She was found to be significantly dehydrated and rapid atrial fibrillation. She was cardioverted in the Emergency Room and admitted to the ICU. She had a severe metabolic acidosis and acute renal insufficiency with a creatinine of 4.7. Despite aggressive hydration and supportive measures, the patient continued to deteriorate. Her blood pressure has remained low and her liver enzymes are now in the 0641-2428 range indicating ischemic disease to the liver. Today, the patient is poorly responsive and is on comfort measures only. PAST MEDICAL HISTORY: Remarkable for ankle fracture, reflux, hyperlipidemia, atrial fibrillation, alcohol dependence. FAMILY HISTORY: Positive for diabetes and hypertension. MEDICATIONS: Per list. ALLERGIES: None. SOCIAL HISTORY: The patient is . She uses alcohol. She smokes daily, but not in the hospital. REVIEW OF SYSTEMS: Not obtainable. The patient is poorly responsive. PHYSICAL EXAMINATION: GENERAL: The patient is lying in bed with BiPAP rebreather on. She does moan with painful stimulation, but does not open her eyes or offer any coherent speech. She is massively overweight. ABDOMEN: Her abdomen showed no scars. There was some tenderness over the liver area. I was not able to palpate any internal organs due to the obesity. EXTREMITIES: Her extremities are little bit cyanotic. NEUROLOGICAL: She is not really responsive neurologically. IMPRESSION: The patient has profound liver test abnormalities with the aminotransferases in the 0532-1373 range, most likely due to ischemia. She has underlying alcohol related liver disease and her blood pressure has been low, which could easily explain these changes. At this point, I would just incorporate supportive comfort measures including IV hydration. There is no other specific intervention that may be a benefit. Please contact me for any further questions.
[2018-12-17] MEDS ORDERED: XOPENEX/ATROVENT 0.63mg/0.5MG NEB COMBO NEB SCH (14:00)
[2018-12-17] MEDS: IPRATROPIUM BROMIDE NEB SOLN 0.02% 2.5 ML VIAL INH SCH ×2 (14:46→19:29)
[2018-12-17] MEDS: LEVALBUTEROL HCL 0.63 MG/3 ML NEB INH SCH ×2 (14:46→19:29)
[2018-12-17] MEDS ORDERED: MoRPHine SULFATE 4 MG/ML 1 ML CARP\\VIAL IV STA (20:46)
--- NOTE | 2018-12-17 20:54 | Progress Note ---
Date of Service December 17, 2018 Subjective Patient's POA Grazyna Armijo and arrived this evening Patient's living will was also brought which stated patient's desire not to use artificial life sustaining measures when it might only prolong her Chart was reviewed and patient's health has been deteriorating Palliative care is also involved in patient's care - per their note comfort care decision was to be made by family this evening I talked to patient's sister, and reviewed will after which patient was made comfort care and she was started on morphine drip and given a 4mg IV morphine bolus to keep her comfortable and help with air hunger Bipap will be discontinued Results & Data Vital Signs (Past 12 Hours) Vital Signs Temp Pulse Pulse Resp BP BP BP 12/17/18 19:30 122 H 30 H 12/17/18 18:20 73 36 H 12/17/18 15:54 36.3 C L 100 H 20 125/82 12/17/18 14:46 111 H 36 H 12/17/18 14:09 88 36 H 121/73 12/17/18 12:20 84 96/68 L 12/17/18 12:19 82 85/55 L 12/17/18 12:15 75 102/72 12/17/18 12:05 85 93/57 L 12/17/18 12:00 74 94/59 L 12/17/18 11:55 80 79/51 L 12/17/18 11:51 89 73/50 L 12/17/18 11:48 72 81/53 L 12/17/18 11:40 67 57/43 L 12/17/18 11:35 74 55/36 L 12/17/18 11:31 67/41 L 12/17/18 11:21 119 H 61/35 L 12/17/18 11:17 35.6 C L 111 H 32 H 55/37 L 12/17/18 11:12 98 H 65/43 L 12/17/18 11:09 101 H 36/23 L 12/17/18 10:55 121 H 70/50 L 12/17/18 10:54 120 H 29 H 12/17/18 10:45 120 H 29 H 12/17/18 10:40 121 H 92/77 L 12/17/18 10:30 115 H 123/114 H 12/17/18 10:25 127 H 77/50 L Pulse Ox 12/17/18 19:30 97 12/17/18 18:20 94 12/17/18 15:54 100 12/17/18 14:46 100 12/17/18 14:09 100 12/17/18 12:20 12/17/18 12:19 12/17/18 12:15 12/17/18 12:05 12/17/18 12:00 12/17/18 11:55 12/17/18 11:51 100 12/17/18 11:48 99 12/17/18 11:40 100 12/17/18 11:35 99 12/17/18 11:31 12/17/18 11:21 100 12/17/18 11:17 108 H 12/17/18 11:12 100 12/17/18 11:09 92 12/17/18 10:55 98 12/17/18 10:54 99 12/17/18 10:45 99 12/17/18 10:40 89 L 12/17/18 10:30 92 12/17/18 10:25 94
[2018-12-17] MEDS: MoRPHine SULF/NSS 250 MG/250 ML BTL IV SCH (21:10)
[2018-12-17] MEDS: THIAMINE HCL 100 MG in SYRINGE 9 ML IV SCH (22:18)
--- NOTE | 2018-12-18 15:11 | Palliative Care Progress Note ---
Date of Service December 18, 2018 Assessment & Plan (1) Comfort measures only status: -Comfort measures only after several providers spoke with paitent's family yesterday. According to patient's living will, no heroic measures when terminal. -Patient is now obtunded on oxymask. No response to stimuli. - at bedside and denied any questions/concerns. -Morphine infusion at 4mg/hr. Respirations equal and unlabored. Shallow. -Patient expected to pass away in next hours to days. (2) Cardiomyopathy, nonischemic: (3) UTI (urinary tract infection): (4) Respiratory failure: Subjective Patient obtunded. at bedside. Review of Systems Review of Systems: Unobtainable due to cognitive status Physical Exam Constitutional: no acute distress ENMT: Mouth: + oral mucosal abnormality (very dry), + dentition abnormality (several loose teeth, several teeth knocked out) and + poor dentition Neck: normal visual inspection and trachea midline Respiratory: not tachypneic Auscultation: + rhonchi (coarse) and + abnormal I/E ratio (prolonged expiration) Cardiovascular: Rate/Rhythm: regular rate and regular rhythm Heart Sounds: no murmur Extremities: no pedal edema Gastrointestinal (Abdomen): Inspection/Auscultation: normal bowel sounds; abdomen not distended Percussion/Palpation: abdomen soft Musculoskeletal: Extremities: no cyanosis Skin: no rashes, warm and dry Neurologic: + obtunded Time Spent Midlevel 25 minutes with >50% of time spent at bedside with patient and family discussing MANAGER INPATIENT and EOL issues. (1) Respiratory failure Chronicity: unspecified Respiratory failure complication: hypoxia and hypercapnia Qualified Code(s): J96.91 - Respiratory failure, unspecified with hypoxia; J96.92 - Respiratory failure, unspecified with hypercapnia
--- NOTE | 2018-12-18 18:07 | Hospitalist Progress Note ---
Date of Service December 18, 2018 Assessment & Plan (1) Hypovolemic shock: 62 yo female with history of alcohol abuse, mild dementia, afib, liver disease who admitted on november with confusion, afib with RVR, dyspnea and agitation. was hypotensive at that time and was subsequently cardioverted, successfully, back to sinus rhythm. was havign acute renal failure, with Cr was markedly elevated at 4.7, baseline was 1.0, resolved was evidence of metabolic acidosis. was admitted to the ICU, intubated for airway protection and was extubated and then transferred to PCU, yesterday , condition significantly worse, with afib with RVR at 160's, RR 33's asso with confusion, decreased mental status. liver failure , discussed with DEANNE Badillo together with palliative care service, DEANNE want: no ICU transferring, DNI, DNR, no heroic methods such as invasive procedure, but ok labs, bipap, and medicine, and if she getting worse adn will allow her pass peaceful, POA ok of morphine, and atropin etc for comfort methods. At noon time patient's systolic blood pressure drop to 60s, after talking to patient's power of commercial litigation attorney, stop amiodarone drip and heparin drip, and ASSESSMENT NURSE started cont ASSESSMENT NURSE (2) Metabolic acidosis: , Possible from sepsis or from metabolic encephalopathy (3) TERRY (acute kidney injury): Acute kidney failure upon admission likely due to dehydration and hypotension (4) Acute respiratory failure: Upon admission, there was acute respiratory failure, extubated 12/13 in the evening (5) Atrial fibrillation with RVR: required cardioversion in the ED due to hemodynamic instability Yesterday he was having A. fib with RVR again, was tried Cardizem and Lopressor, but seems does not help for afib echo was normal Had been on heparin gtt for anticoagulation for stroke prevention, discontinued after the goal of the care changed to ASSESSMENT NURSE (6) Alcohol dependence: h/o such, per family has not been drinking alcohol for two years ETOH negative on admission (7) Neurocognitive disorder: per family, has alcohol induced dementia, needs cared for by started drinking again and was neglecting care of the sister, who is POA, (8) UTI (urinary tract infection): urine culture - Klebsiella, perkins sensitive, was on antibiotic (9) Liver failure: With a significant elevated AST and ALT, AST much prominent and then AST, etiology likely because of hypovolemic shock, and A. fib with rapid ventricle response which caused a decreased cardiac output and resolving poor perfusion of end organs such as liver and kidney, other diagnosis is alcoholic hepatitis because of AST significant nausea and an ALT, difficult history of alcohol abuse, GI saw pt, ASSESSMENT NURSE now (10) C. difficile diarrhea: Stool C. difficile positive with history of diarrhea, this condition may contribution to patient's significant worsening medical conditions, now is comfort measures only Patient is active diet, continue comfort measures, at bedside, discussed with him and answered all questions Subjective Comfortable, on oxygen, agonal breathing, no fever and chill, Review of Systems Review of Systems: Unobtainable due to cognitive status Physical Exam Physical Exam: Looks obtunded, but comfortable, deep sleep pale Nose: no nasal discharge Mouth: mild Dry mucous membranes poor dementia, trachea midline, no thyromegaly agnal breathing and diffused wheezing, no rhonchi, irr , HR >140, no murmur, 1+ edema abd soft, BS + extremities, mild cyanosis and cold no focal motor deficits Results & Data Vital Signs (Past 12 Hours) no labs pt is on ASSESSMENT NURSE
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
--- NOTE | 2018-12-19 17:06 | Hospitalist Progress Note ---
Date of Service December 19, 2018 Assessment & Plan (1) Hypovolemic shock: 62 yo female with history of alcohol abuse, mild dementia, afib, liver disease who admitted on november with confusion, afib with RVR, dyspnea and agitation. was hypotensive at that time and was subsequently cardioverted, successfully, back to sinus rhythm. was havign acute renal failure, with Cr was markedly elevated at 4.7, baseline was 1.0, resolved was evidence of metabolic acidosis. was admitted to the ICU, intubated for airway protection and was extubated and then transferred to PCU, 2 days ago, condition significantly worse, with afib with RVR at 160's, RR 33's asso with confusion, decreased mental status. liver failure , discussed with DEANNE Badillo together with palliative care service, DEANNE want: no ICU transferring, DNI, DNR, no heroic methods such as invasive procedure, but ok labs, bipap, and medicine, and if she getting worse adn will allow her pass peaceful, POA ok of morphine, and atropin etc for comfort methods. At noon time patient's systolic blood pressure drop to 60s, after talking to patient's power of employment law attorney, stop amiodarone drip and heparin drip, and ASSISTANT OPERATOR started Patient is active dying, continue ASSISTANT OPERATOR (2) Metabolic acidosis: Possible from sepsis or from metabolic encephalopathy (3) TERRY (acute kidney injury): Acute kidney failure upon admission likely due to dehydration and hy potension (4) Acute respiratory failure: Upon admission, there was acute respiratory failure, extubated 12/13 in the evening (5) Atrial fibrillation with RVR: required cardioversion in the ED upon admission due to hemodynamic instability 2 days ago she was having A. fib with RVR again, was tried Cardizem and Lopr essor, but did not help for afib echo was unremarkable was on heparin gtt for anticoagulation for stroke prevention, heparin discontinued after the goal of the care changed to ASSISTANT OPERATOR (6) Alcohol dependence: h/o alcohol dependence and alcohol abuse, per family has not been drinking alcohol for two years ETOH negative on this admission (7) Neurocognitive disorder: per family, has alcohol induced dementia, needs cared for by started drinking again and was neglecting care of the sister, who is POA, (8) UTI (urinary tract infection): urine culture - Klebsiella, perkins sensitive, was on antibiotic (9) Liver failure: With a significant elevated AST and ALT, AST much prominent and then AST, etiology likely because of hypovolemic shock, and A. fib with rapid ventricle response which caused a decreased cardiac output and resolving poor perfusion of end organs such as liver and kidney, other diagnosis is alcoholic hepatitis because of AST significant nausea and an ALT, difficult history of alcohol abuse, GI saw pt, ASSISTANT OPERATOR now (10) C. difficile diarrhea: Stool C. difficile positive with history of diarrhea, this condition may contribution to patient's significant worsening medical conditions, now is comfort measures only Patient is active diet, continue comfort measures, at bedside, discussed with him and answered all questions Subjective Continue unconscious, pale, unresponsive, Review of Systems Review of Systems: All systems reviewed & are unremarkable except as noted in HPI & below Physical Exam Physical Exam: Looks obtunded, but comfortable, deep sleep pale Nose: no nasal discharge Mouth: mild Dry mucous membranes poor dementia, trachea midline, no thyromegaly agnal breathing and diffused wheezing, no rhonchi, irr , HR >140, no murmur, + edema abd soft, BS + extremities, mild cyanosis and cold no focal motor deficits
[2018-12-20] MEDS: MoRPHine SULF/NSS 250 MG/250 ML BTL IV SCH (13:33)
--- NOTE | 2018-12-20 13:38 | Palliative Care Progress Note ---
Date of Service December 20, 2018 Subjective Patient remains on morphine gtt. Respirations at 10/min. Obtunded. No family at bedside. Please contact me with any further palliative care needs. Supervising Physician Co-Signing Physician Notes Patient seen and examined, no family at bedside. Collaborated with nursing regarding patient's level of comfort-nursing reports patient with no signs of discomfort with personal care or with turning. PE: Patient appears comfortable, unresponsive to voice or touch Respirations: Unlabored, on O2 at 6 L via oxygen mask CV: Tachycardic Abdomen: No grimace with light palpation Extremities: No grimace with passive range of motion of upper extremity Agree with above note, assessment and plan as per JAMILA Gama-we will continue to follow
--- NOTE | 2018-12-20 17:27 | Hospitalist Progress Note ---
Date of Service December 20, 2018 Assessment & Plan (1) Hypovolemic shock: 62 yo female with history of alcohol abuse, mild dementia, afib, liver disease who admitted on november with confusion, afib with RVR, dyspnea and agitation. was hypotensive at that time and was subsequently cardioverted, successfully, back to sinus rhythm. was havign acute renal failure, with Cr was markedly elevated at 4.7, baseline was 1.0, resolved was evidence of metabolic acidosis. was admitted to the ICU, intubated for airway protection and was extubated and then transferred to PCU, 3 days ago, condition significantly worse, with afib with RVR at 160's, RR 33's asso with confusion, decreased mental status. liver failure , discussed with DEANNE Badillo together with palliative care service, DEANNE want: no ICU transferring, DNI, DNR, no heroic methods such as invasive procedure, but ok labs, bipap, and medicine, and if she getting worse and will allow her pass peaceful, POA ok of morphine, and atropin etc for comfort methods. At noon time of the day patient's systolic blood pressure drop to 60s, after talking to patient's power of trade mark attorney, stop amiodarone drip and heparin drip, and TEACHER VISUALLY IMPAIRED started Patient is active dying, has been on comfort measures for 3 days, will continue morphine drip, and comfort measures (2) Metabolic acidosis: Possible from sepsis or from metabolic encephalopathy (3) TERRY (acute kidney injury): Acute kidney failure upon admission likely due to dehydration and hypotension (4) Acute respiratory failure: Upon admission, there was acute respiratory failure, extubated 12/13 in the evening (5) Atrial fibrillation with RVR: see above (6) Alcohol dependence: h/o alcohol dependence and alcohol abuse, per family has not been drinking alcohol for two years ETOH negative on this admission (7) Neurocognitive disorder: per family, has alcohol induced dementia, needs cared for by started drinking again and was neglecting care of the sister, who is POA, (8) UTI (urinary tract infection): urine culture - Klebsiella, perkins sensitive, was on antibiotic (9) Liver failure: With a significant elevated AST and ALT, AST much prominent and then AST, etiology likely because of hypovolemic shock, and A. fib with rapid ventricle response which caused a decreased cardiac output and resolving poor perfusion of end organs such as liver and kidney, other diagnosis is alcoholic hepatitis because of AST significant nausea and an ALT, difficult history of alcohol abuse, GI saw pt, TEACHER VISUALLY IMPAIRED now (10) C. difficile diarrhea: Stool C. difficile positive with history of diarrhea, this condition may contribution to patient's significant worsening medical conditions, now is comfort measures only Patient is active diet, continue comfort measures, at bedside, discussed with him and answered all questions Subjective On morphine drip, comfortable, on 6 L nasal cannula, Review of Systems Review of Systems: All systems reviewed & are unremarkable except as noted in HPI & below Physical Exam Physical Exam: comfortable, pale Nose: no nasal discharge Mouth: mild Dry mucous membranes poor dementia, trachea midline, no thyromegaly agnal breathing and diffused wheezing, no rhonchi, irr , HR elevated>100, no murmur, 1+ edema abd soft, BS + extremities, mild cyanosis and cold no focal motor deficits
[2018-12-20] MEDS: ATROPINE SULFATE 1% OP SOLN 2 ML BTL SL PRN (18:41)
--- NOTE | 2018-12-21 11:01 | Palliative Care Progress Note ---
Date of Service December 21, 2018 Assessment & Plan (1) Comfort measures only status: -Comfort measures only. -Appears comfortable on morphine infusion at 4mg/hr. Is obtunded, no response to stimuli. -Little urine output. -Please contact me with any further palliative care needs. (2) Cardiomyopathy, nonischemic: (3) UTI (urinary tract infection): (4) Respiratory failure: Subjective Patient remains on morphine gtt. Respirations at 10/min. Obtunded. at bedside, sound asleep. Please contact me with any further palliative care needs. Review of Systems Review of Systems: Unobtainable due to reduced consciousness Physical Exam Constitutional: no acute distress Neck: normal visual inspection Respiratory: not tachypneic Auscultation: + rhonchi (coarse) and + abnormal I/E ratio (prolonged expiration) Cardiovascular: Rate/Rhythm: + tachycardic and + irregularly irregular Extremities: no pedal edema Musculoskeletal: Extremities: no cyanosis Skin: no rashes, warm and dry Neurologic: + obtunded Time Spent Midlevel 15 minutes with >50% of time spent at bedside with patient and nursing staff discussing comfort measures and plan of care. (1) Respiratory failure Chronicity: unspecified Respiratory failure complication: hypoxia and hypercapnia Qualified Code(s): J96.91 - Respiratory failure, unspecified with hypoxia; J96.92 - Respiratory failure, unspecified with hypercapnia
--- NOTE | 2018-12-21 15:31 | XRay Report ---
XR chest 1V portable CLINICAL HISTORY: resp failure dyspnea COMPARISON STUDY: 12/17/2018 FINDINGS: Diffuse bilateral parenchymal infiltrative change . No major change in the prior study. Poo r visibility of the left hemidiaphragm which may indicate a component of basilar consolidative change . IMPRESSION: Diffuse bilateral parenchymal infiltrative change essentially unaltered from the prior s tudy. The above report was generated using voice recognition software. It may contain grammatical, syntax or spelling errors. Electronically signed by: Sundar Benson M.D. 12/21/2018 3:30 PM
[2018-12-21 16:08] LABS: Hematocrit (blood only) 28.2 % (37-47); Mean Corpuscular Volume 92.2 fL (80-100); Mean Platelet Volume 9.5 fL (7.4-10.4); Platelet Count 232 K/uL (130-400); RDW Coefficient of Variation 17.5 % (11.5-14.5); RDW Standard Deviation 59.3 fL (36.4-46.3); Red Blood Count 3.06 M/uL (4.2-5.4); White Blood Count 8.77 K/uL (4.8-10.8)
[2018-12-21 16:11] LABS: HCO3 ABG 20 mmol/L (19-24); Oxygen Saturation ABG 90.1 % (90-95); PCO2 ABG 51 mmHg (35-46); PO2 ABG 70 mm/Hg (80-95); pH ABG 7.22 (7.35-7.45)
[2018-12-21 16:12] LABS: Allen Test POS (Pos)
[2018-12-21 16:29] LABS: Basophils # (auto) 0.03 K/uL (0-0.2); Basophils % (auto) 0.3 %; Eosinophils # (auto) 0.02 K/uL (0-0.5); Eosinophils % (auto) 0.2 %; Immature Granulocytes # (auto) 0.03 K/uL (0.00-0.02); Immature Granulocytes % (auto) 0.3 %; Lymphocytes # (auto) 0.79 K/uL (1.2-3.4); Mean Corpuscular Hgb Conc 31.9 g/dL (32-36); Monocytes % (auto) 3.4 %; Neutrophils % (auto) 86.8 %
[2018-12-21 16:36] LABS: Albumin Globulin Ratio 0.4 (0.9-2); Albumin Level 1.8 gm/dl (3.4-5.0); BUN Creatinine Ratio 10.6 (10-20); Bilirubin,Total 0.6 mg/dl (0.2-1); Calcium 7.4 mg/dl (8.5-10.1); Creatinine Clr Calc Pharmacy 9.4 ml/min; Est GFR (African American) 6.9; Globulin 4.7 gm/dl (2.5-4.0); Total Protein 6.5 gm/dl (6.4-8.2)
--- NOTE | 2018-12-21 19:00 | Hospitalist Progress Note ---
Date of Service December 21, 2018 Assessment & Plan (1) Hypovolemic shock: 62 yo female with history of alcohol abuse, mild dementia, afib, liver disease who admitted on november with confusion, afib with RVR, dyspnea and agitation. was hypotensive at that time and was subsequently cardioverted, successfully, back to sinus rhythm. was havign acute renal failure, with Cr was markedly elevated at 4.7, baseline was 1.0, resolved was evidence of metabolic acidosis. was admitted to the ICU, intubated for airway protection and was extubated and then transferred to PCU, 3 days ago, condition significantly worse, with afib with RVR at 160's, RR 33's asso with confusion, decreased mental status. liver failure , discussed with DEANNE Badillo together with palliative care service, DEANNE want: no ICU transferring, DNI, DNR, no heroic methods such as invasive procedure, but ok labs, bipap, and medicine, and if she getting worse and will allow her pass peaceful, POA ok of morphine, and atropin etc for comfort methods. At noon time of the day patient's systolic blood pressure drop to 60s, after talking to patient's power of command and control systems integrator, stop amiodarone drip and heparin drip, and SILO ERECTOR started Patient is active dying, has been on comfort measures for 3 days, will continue morphine drip, and comfort measures (2) Metabolic acidosis: Possible from sepsis or from metabolic encephalopathy (3) TERRY (acute kidney injury): Acute kidney failure upon admission likely due to dehydration and hypotension (4) Acute respiratory failure: Upon admission, there was acute respiratory failure, extubated 12/13 in the evening she remains in respiratory failure with pH 7.22, PCO2 51, PO2 70 on oxygen at 2 L/min (5) Atrial fibrillation with RVR: see above . The patient has uncontrolled atrial fibrillation at this time (6) Alcohol dependence: h/o alcohol dependence and alcohol abuse, per family has not been drinking alcohol for two years ETOH negative on this admission (7) Neurocognitive disorder: per family, has alcohol induced dementia, needs cared for by started drinking again and was neglecting care of the sister, who is POA, (8) UTI (urinary tract infection): urine culture - Klebsiella, perkins sensitive, was on antibiotic (9) Liver failure: With a significant elevated AST and ALT, AST much prominent and then AST, etiology likely because of hypovolemic shock, and A. fib with rapid ventricle response which caused a decreased cardiac output and resolving poor perfusion of end organs such as liver and kidney, other diagnosis is alcoholic hepatitis because of AST significant nausea and an ALT, difficult history of alcohol abuse, GI saw pt, SILO ERECTOR now (10) C. difficile diarrhea: Stool C. difficile positive with history of diarrhea, this condition may contribution to patient's significant worsening medical conditions, now is comfort measures only Patient is active diet, continue comfort measures, at bedside, discussed with him and answered all questions Dispositionthe patient has indicated in her living will that she does not want dialysis for her acute renal failure. She will be kept comfortable with palliative care and continuous intravenous morphine infusion until she passes. Family is aware of the terminal prognosis and is at the bedside. Subjective The patient remains obtunded on morphine infusion. Repeat evaluation was completed today with chest x-ray, arterial blood gas, lab studies. This was done with the 's consent. She has evidence of congestive heart failure on chest x-ray. Atrial fibrillation is uncontrolled. She now has acute renal failure with creatinine greater than 6. Her LivingWill was reviewed and she expressly stated that she did not want dialysis. I spoke to her medical POA sister, Grazyna, who is in agreement that she should not undergo dialysis. She will remain on palliative care with morphine infusion until she passes. Family is at the bedside and aware of the situation and her mental status. Review of Systems Review of Systems: Unobtainable due to cognitive status Physical Exam Constitutional: Obtunded and unarousable on continuous morphine infusion Respiratory: Shallow respirations with intermittent apneic episodes Cardiovascular: Tachycardic irregular rhythm consistent with uncontrolled atrial fibrillation Gastrointestinal (Abdomen): Nondistended abdomen. Hypoactive bowel sounds Skin: Pale. Dry Neurologic: Obtunded on intravenous morphine infusion Results & Data Laboratory Results 12/21/18 15:56 12/21/18 15:56 Diagnostic Findings XR chest 1V portable CLINICAL HISTORY: resp failure dyspnea COMPARISON STUDY: 12/17/2018 FINDINGS: Diffuse bilateral parenchymal infiltrative change . No major change in the prior study. Poor visibility of the left hemidiaphragm which may indicate a component of basilar consolidative change. IMPRESSION: Diffuse bilateral parenchymal infiltrative change essentially unaltered from the prior study. The above report was generated using voice recognition software. It may contain grammatical, syntax or spelling errors. Electronically signed by: Sundar Benson M.D. 12/21/2018 3:30 PM
--- NOTE | 2018-12-22 14:31 | Hospitalist Progress Note ---
Date of Service December 22, 2018 Assessment & Plan (1) Hypovolemic shock: 62 yo female with history of alcohol abuse, mild dementia, afib, liver disease who admitted on november with confusion, afib with RVR, dyspnea and agitation. was hypotensive at that time and was subsequently cardioverted, successfully, back to sinus rhythm. was havign acute renal failure, with Cr was markedly elevated at 4.7, baseline was 1.0, resolved was evidence of metabolic acidosis. was admitted to the ICU, intubated for airway protection and was extubated and then transferred to PCU, 3 days ago, condition significantly worse, with afib with RVR at 160's, RR 33's asso with confusion, decreased mental status. liver failure , discussed with DEANNE Badillo together with palliative care service, DEANNE want: no ICU transferring, DNI, DNR, no heroic methods such as invasive procedure, but ok labs, bipap, and medicine, and if she getting worse and will allow her pass peaceful, POA ok of morphine, and atropin etc for comfort methods. At noon time of the day patient's systolic blood pressure drop to 60s, after talking to patient's power of divorce attorney, stop amiodarone drip and heparin drip, and CONVERSION MAN started Patient is active dying, has been on comfort measures for 3 days, will continue morphine drip, and comfort measures (2) Metabolic acidosis: Possible from sepsis or from metabolic encephalopathy (3) TERRY (acute kidney injury): Acute kidney failure upon admission likely due to dehydration and hypotension (4) Acute respiratory failure: Upon admission, there was acute respiratory failure, extubated 12/13 in the evening she remains in respiratory failure with pH 7.22, PCO2 51, PO2 70 on oxygen at 2 L/min (5) Atrial fibrillation with RVR: see above . The patient has uncontrolled atrial fibrillation at this time (6) Alcohol dependence: h/o alcohol dependence and alcohol abuse, per family has not been drinking alcohol for two years ETOH negative on this admission (7) Neurocognitive disorder: per family, has alcohol induced dementia, needs cared for by started drinking again and was neglecting care of the sister, who is POA, (8) UTI (urinary tract infection): urine culture - Klebsiella, perkins sensitive, was on antibiotic (9) Liver failure: With a significant elevated AST and ALT, AST much prominent and then AST, etiology likely because of hypovolemic shock, and A. fib with rapid ventricle response which caused a decreased cardiac output and resolving poor perfusion of end organs such as liver and kidney, other diagnosis is alcoholic hepatitis because of AST significant nausea and an ALT, difficult history of alcohol abuse, GI saw pt, CONVERSION MAN now (10) C. difficile diarrhea: Stool C. difficile positive with history of diarrhea, this condition may contribution to patient's significant worsening medical conditions, now is comfort measures only Patient is active diet, continue comfort measures, at bedside, discussed with him and answered all questions Dispositionthe patient has indicated in her living will that she does not want dialysis for her acute renal failure. She will be kept comfortable with palliative care and continuous intravenous morphine infusion until she passes. Family is aware of the terminal prognosis and is at the bedside. Subjective The patient remains obtunded. She had some moaning in the morphine drip infusion has been increased. remains at the bedside. Her prognosis is terminal. Review of Systems Review of Systems: Unobtainable due to cognitive status Physical Exam Physical Exam: The patient is obtunded with continuous intravenous morphine infusion. Respirations are shallow with scattered bilateral rhonchi. Intermittent apneic episodes Respiratory: Shallow respirations. Scattered rhonchi. Intermittent apnea Cardiovascular: Tachycardic irregular rhythm Skin: Pale. Dry Neurologic: Obtunded Results & Data Laboratory Results 12/21/18 15:56 12/21/18 15:56
[2018-12-23] MEDS: ATROPINE SULFATE 1% OP SOLN 2 ML BTL SL PRN ×4 (06:21→21:17)
[2018-12-23] MEDS: MoRPHine SULF/NSS 250 MG/250 ML BTL IV SCH (06:28)
--- NOTE | 2018-12-23 12:00 | Hospitalist Progress Note ---
Date of Service December 23, 2018 Assessment & Plan (1) Hypovolemic shock: 62 yo female with history of alcohol abuse, mild dementia, afib, liver disease who admitted on november with confusion, afib with RVR, dyspnea and agitation. was hypotensive at that time and was subsequently cardioverted, successfully, back to sinus rhythm. was havign acute renal failure, with Cr was markedly elevated at 4.7, baseline was 1.0, resolved was evidence of metabolic acidosis. was admitted to the ICU, intubated for airway protection and was extubated and then transferred to PCU where her condition significantly worse, with afib with RVR at 160's, RR 33's asso with confusion, decreased mental status. liver failure. The case was discussed with DEANNE Badillo together with the patient's and palliative care service. The and POA want: no ICU transferring, DNI, DNR, no heroic methods such as invasive procedure, no dialysis. (2) Metabolic acidosis: From sepsis (3) TERRY (acute kidney injury): Acute kidney failure upon admission likely due to dehydration and hypotension (4) Acute respiratory failure: Upon admission, there was acute respiratory failure, extubated 12/13 in the evening she remains in respiratory failure with pH 7.22, PCO2 51, PO2 70 on oxygen at 2 L/min (5) Atrial fibrillation with RVR: see above . The patient has uncontrolled atrial fibrillation at this time. 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 (8) UTI (urinary tract infection): urine culture - Klebsiella, perkins sensitive, was on antibiotic earlier this admission (9) Liver failure: With a significant elevated AST and ALT, AST much prominent and then AST, etiology likely because of hypovolemic shock, and A. fib with rapid ventricle response which caused a decreased cardiac output and resolving poor perfusion of end organs such as liver and kidney, other diagnosis is alcoholic hepatitis because of AST significant nausea and an ALT, difficult history of alcohol abuse, GI saw pt, CARBON PASTE MIXER OPERATOR now (10) C. difficile diarrhea: Stool C. difficile positive with history of diarrhea, this condition may contribution to patient's significant worsening medical conditions, now is comfort measures only. No active treatment at this time Dispositionthe patient has indicated in her living will that she does not want dialysis for her acute renal failure. She will be kept comfortable with palliative care and continuous intravenous morphine infusion until she passes. Family is aware of the terminal prognosis and is at the bedside. Subjective Respirations are shallow with scattered rhonchi. Patient remains on morphine gtt. She is unresponsive. is at the bedside. Review of Systems Review of Systems: Unobtainable due to cognitive status Physical Exam Constitutional: Unconscious and obtunded on morphine infusion Respiratory: Scattered bilateral rhonchi with shallow ineffective respiratory activity. Short apneic episodes evident Cardiovascular: Tachycardic irregular rhythm consistent with uncontrolled atrial fibrillation Gastrointestinal (Abdomen): Hypoactive bowel sounds. Abdomen is not distended Skin: Pale and dry Neurologic: Unconscious and obtunded on morphine infusion Results & Data Laboratory Results 12/21/18 15:56 12/21/18 15:56
--- NOTE | 2018-12-24 10:12 | Death Summary ---
Date of Service December 24, 2018 Pronouncement Note Contributing Factors (1) Hypovolemic shock: (2) Metabolic acidosis: (3) TERRY (acute kidney injury): (4) Acute respiratory failure: (5) Atrial fibrillation with RVR: (6) Alcohol dependence: (7) Neurocognitive disorder: (8) UTI (urinary tract infection): (9) Liver failure: (10) C. difficile diarrhea: Additional Data Attending physician: Adriel Baker MD. Patient at 00:40 AM 12/24/2018. Pt pronounced by resident physician.
--- NOTE | 2018-12-24 10:17 | Discharge Summary ---
Date of Service December 24, 2018 Admission HPI Per Admitting Provider 62 yo female with history of alcohol abuse, mild dementia, afib, liver disease who presented to the ED with confusion, afib with RVR, dyspnea and agitation. She was brought into the ED by her family, her neice, because she was acting confused. She was last seen on Monday and she was reportedly acting like herself. Even at baseline she has memory issues and lacks the ability to care for herself due to excessive alcohol abuse. Her typically makes sure she is taking her medications and eating and bathing. They both stay in their home. According to the patient's , he has been drinking rubbing alcohol daily because he could not get out to get alcohol. He did not say if the patient was drinking rubbing alcohol. The niece provided the history, she states that she is not sure what has been going on in the home the past few days. The medics found animal and human feces on the floor. The patient was extremely dirty and unkept. In the ED she was acting extremely agitated and was experiencing tremors. She was sedated with Ativan but eventually required intubation to protect her airway and then further sedation. She was in atrial fibrillation with RVR, rates in the 150's. She became hypotensive at that time and was subsequently cardioverted, successfully, back to sinus rhythm. Her Cr was markedly elevated at 4.7, baseline was 1.0. There was evidence of metabolic acidosis. CT head was normal. CXR was unremarkable. She did not have a fever and WBC was normal. She was admitted to the ICU. Once in the ICU she became hypotensive with MAP < 60. Propofol was being used for sedation, dose was reduced. She was given two 1000cc boluses of NSS and started on Levophed, pressures came up to 120's systolic. Acosta was placed, minimal urine output. ABG showed metabolic acidosis with pH of 7.1. 2 amps of sodium bicarb administered and ventilatory rate increased to 22. There was no hypoxia noted on the ABG. Discussed the case in detail with Dr. Cah. Critical care was provided by myself in the ICU from 530pm to 620pm prior to Dr. Cha's arrival. Total critical care time was 50 minutes Admission Exam Per Admitting Provider Vital Signs (Past 24 Hours): Last Vital Signs Temp 36.9 C 12/12/18 14:22 Pulse 101 H 12/12/18 17:19 Resp 18 12/12/18 17:19 BP 88/54 L 12/12/18 16:36 Pulse Ox 97 12/12/18 16:36 Constitutional: well developed, well nourished, + ill appearing and + obese Eyes: PERRL, conjunctivae normal, anicteric sclerae ENMT: Nose: no nasal discharge Mouth: + oral mucosal abnormality (very dry) and + dentition abnormality (several loose teeth, several teeth knocked out) intubated Neck: trachea midline, no thyromegaly Respiratory: normal respiratory effort, lungs clear to auscultation Cardiovascular: RRR, no murmur, no edema Gastrointestinal (Abdomen): normal bowel sounds, soft, nontender, no hepatosplenomegaly Musculoskeletal: Head/Neck/Chest: normocephalic and head atraumatic Extremities: no cyanosis and no clubbing Skin: no rashes, warm and dry Neurologic: CN's II-XI intact bilaterally and moves all extremities; no focal motor deficits Psychiatric: Orientation: + not alert (sedated), + not oriented to person, + not oriented to place and + not oriented to time Apperance: + disheveled Lymphatic: no cervical or axillary lymphadenopathy Principal Diagnosis Hypovolemic shock, acute renal failure, acute hypoxic respiratory failure, atrial fib with RVR, acute diastolic CHF, acute liver failure Discharge Exam Not applicable Discharge Data Allergies Allergy/AdvReac Type Severity Reaction Status Date / Time No Known Allergies Allergy Verified 12/12/18 17:42 Consultations 12/12/18 16:37 ED Decision to Admit Stat 12/12/18 16:44 Consult Confidential Secretary Routine 12/12/18 17:29 Consult Case Management - Discharge Planning Routine Consult Nephrology Stat 12/12/18 21:02 Consult Palliative Care Routine 12/13/18 09:23 Consult Oromaxillofacial Surgery Routine 12/16/18 11:50 Consult Cardiology Routine 12/17/18 08:17 Consult Gastroenterology Routine Ordered Studies 12/12/18 14:41 CT head/brain wo con Stat 12/12/18 17:29 US abdomen limited Stat US renal/blad retro comp Stat 12/17/18 03:39 CT head/brain wo con Urgent Hospital Course (1) Respiratory disorder with ventilator dependence: (2) Respiratory failure: (3) Atrial fibrillation: (4) Hypovolemic shock: (5) Atrial fibrillation with RVR: (6) Acute respiratory failure: (7) TERRY (acute kidney injury): (8) Altered mental status: (9) Liver failure: Total Time Total Time Spent Total Time Spent (In Minutes): 35 minutes Total Time Includes: Other Discharge Plan Discharge Items Patient Disposition: Admission Data Admit Date/Time: 12/12/18 16:44 Service: Medical Other DC Date/Time DO NOT enter until pt leaves facility: 12/24/18 00:40
== END 2018-12-24 00:40 | disposition expired | DRG 871 ==
LOC: ED 14:13 → SUATTDRO 16:44 → 1E 16:44 → 2N 12-15 19:14 → 2S 12-15 23:31 → 4E 12-17 18:27
DX: G93.41 Metabolic encephalopathy; Z66 Do not resuscitate; K21.9 Gastro-esophageal reflux disease without esophagitis; N39.0 Urinary tract infection, site not specified; N17.9 Acute kidney failure, unspecified; S02.5XXA Fracture of tooth (traumatic), initial encounter for closed fracture; I48.0 Paroxysmal atrial fibrillation; E87.2 Acidosis; J18.9 Pneumonia, unspecified organism; Z91.19 Patient's noncompliance with other medical treatment and regimen; D63.8 Anemia in other chronic diseases classified elsewhere; Z51.5 Encounter for palliative care; I42.9 Cardiomyopathy, unspecified; K70.40 Alcoholic hepatic failure without coma; E78.5 Hyperlipidemia, unspecified; J96.01 Acute respiratory failure with hypoxia; F10.27 Alcohol dependence with alcohol-induced persisting dementia; E87.1 Hypo-osmolality and hyponatremia; F17.200 Nicotine dependence, unspecified, uncomplicated; A41.9 Sepsis, unspecified organism; Z79.01 Long term (current) use of 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; R57.1 Hypovolemic shock; Z79.899 Other long term (current) drug therapy; Z79.82 Long term (current) use of aspirin; A04.72 Enterocolitis due to Clostridium difficile, not specified as recurrent; Y83.8 Other surgical procedures as the cause of abnormal reaction of the patient, or of later complication, without mention of misadventure at the time of the procedure